=== PATIENT | male | born 1940 | race Caucasian/White ===

== ENCOUNTER 2016-12-09 08:35 | Inpatient (IN) | payer OTHER ==
[2016-11-17 10:47] VITALS: BMI 31.0
--- NOTE | 2016-11-17 11:24 | PAT Medication Instructions ---
"Service Date Nov 17, 2016. Current Home Medication List Aspirin (Aspirin Chewable), 162 MG PO QPM Canagliflozin (Invokana), 1 TAB PO DAILY Cholecalciferol (Vitamin D3), 1,000 UNITS PO QAM Colchicine (Colchicine), 0.6 MG PO PRN PRN for GOUT ATTACK Losartan Potassium (Cozaar), 25 MG PO DAILY Metformin Hcl (Glucophage), 1,000 MG PO QAM Metoprolol Succ (Toprol Xl) (Toprol-Xl), 25 MG PO DAILY Nitroglycerin (Nitrostat), 0.4 MG UT PRN Nystatin/Triamcinolone (Mycogen || ), 1 DOSE TOP BID PRN for RN Pravastatin (Pravachol ), 10 MG PO DAILY Pregabalin (Lyrica), 150 MG PO BID Rivaroxaban (Xarelto), 20 MG PO QAM Medication Instructions For Your Scheduled Surgery - Sap Portal Developer and Surgeon to give instructions: Rivaroxaban (Xarelto), 20 MG PO QAM Aspirin (Aspirin Chewable), 162 MG PO QPM - Continue as directed: Nitroglycerin (Nitrostat), 0.4 MG UT PRN Colchicine (Colchicine), 0.6 MG PO PRN PRN for GOUT ATTACK - Hold the following medications 48 hours prior to surgery: Metformin Hcl (Glucophage), 1,000 MG PO QAM - Hold the following medications 24 hours prior to surgery: Nystatin/Triamcinolone (Mycogen || ), 1 DOSE TOP BID PRN for RN - Hold the following medications the morning of surgery: Canagliflozin (Invokana), 1 TAB PO DAILY Pregabalin (Lyrica), 150 MG PO BID Losartan Potassium (Cozaar), 25 MG PO DAILY Cholecalciferol (Vitamin D3), 1,000 UNITS PO QAM - Take the following medications the morning of surgery with a sip of water OTHERWISE NOTHING TO EAT OR DRINK AFTER MIDNIGHT: Metoprolol Succ (Toprol Xl) (Toprol-Xl), 25 MG PO DAILY Pravastatin (Pravachol ), 10 MG PO DAILY - Take the following medications as scheduled the night before surgery: Pregabalin (Lyrica), 150 MG PO BID If you have any questions please call us at [phone] or [phone] or [phone]"
[2016-11-17 12:19] LABS: BASO % 0.8 %; BASO ABS # 0.06 K/uL (0-0.2); COMPLETE YES; EOS % 3.2 %; HEMATOCRIT 46.5 % (42-52); IG% 0.3 %; LYMPH % 36.1 %; LYMPH ABS # 2.69 K/uL (1.2-3.4); MEAN CELL VOLUME 84.5 fL (80-100); MEAN CORPUSCULAR HEMOGLOBIN 28.2 pg (25-34); MEAN CORPUSCULAR HGB CONC 33.3 g/dl (32-36); MEAN PLATELET VOLUME 11.1 fL (7.4-10.4); MONO % 6.3 %; NEUT % 53.3 %; PLATELET COUNT 129 K/uL (130-400); WHITE BLOOD COUNT 7.46 K/uL (4.8-10.8)
--- NOTE | 2016-11-17 12:19 | DIAGNOSTIC IMAGING REPORT ---
CHEST 2 VIEWS ROUTINE CLINICAL HISTORY: Preoperative chest COMPARISON STUDY: 10/27/2015 FINDINGS: The heart is enlarged. There are postsurgical changes of a midline sternotomy. There is no overt failure. There is no lobar consolidation. There are no pleural effusions.[ IMPRESSION: Cardiomegaly. No acute findings. Electronically signed by: Hans Sanders M.D. 11/17/2016 12:18 PM Dictated Date/Time: 11/17/2016 12:17 PM
[2016-11-17 12:20] LABS: URINE APPEARANCE CLEAR (CLEAR); URINE BILIRUBIN NEG (NEG); URINE COLOR YELLOW; URINE NITRITE NEG (NEG); URINE PH 5.5 (4.5-7.5); URINE SPECIFIC GRAVITY 1.026 (1.000-1.030); UROBILINOGEN NEG (NEG); ZZUR CULT IF INDIC CLEAN CATCH NO
[2016-11-17 12:25] LABS: BUN/CREATININE RATIO 19.9 (10-20); CALCIUM 9.3 mg/dl (8.5-10.1); CREATININE 1.1 mg/dl (0.60-1.40); POTASSIUM 4.7 mmol/L (3.5-5.1)
[2016-11-17 12:30] LABS: INR 1.1 (0.9-1.1); PARTIAL THROMBOPLASTIN RATIO 1.3; PROTHROMBIN TIME (PATIENT) 11.3 SECONDS (9.0-12.0)
[2016-11-17 12:34] LABS: MANUAL MICROSCOPIC REQUIRED? NO; REVIEW REQ? NO
[2016-11-17 13:47] LABS: ESTIMATED AVERAGE GLUCOSE 128 mg/dl; HA1C FLAG Normal (Normal)
--- NOTE | 2016-12-08 20:48 | HISTORY & PHYSICAL EXAMINATION ---
DATE OF ADMISSION: 12/09/2016 ADMISSION HISTORY AND PHYSICAL CHIEF COMPLAINT: Left shoulder pain. HISTORY OF PRESENT ILLNESS: This is a 76-year-old male patient of Dr. Chatterjee'álvaro complaining of chronic left shoulder pain, longstanding, now progressively getting worse. The patient has failed conservative treatment. He has been diagnosed with end-stage osteoarthritis and insufficient rotator cuff and wishes to proceed with an elective left reverse total shoulder arthroplasty. PAST MEDICAL HISTORY: 1. Coronary artery disease status post an PR in 1999 with a 3-vessel CABG. 2. Snoring. 3. History of TIA. 4. Diabetes mellitus. 5. Kidney stones. SOCIAL HISTORY: Nonsmoker, nondrinker. PAST SURGICAL HISTORY: Right shoulder and 3-vessel coronary artery bypass surgery. FAMILY HISTORY: Noncontributory. REVIEW OF SYSTEMS: The patient complains of chronic left shoulder pain. Otherwise, denies any shortness of breath, chest pain, nausea, vomiting or any other joint complaints. MEDICATIONS: Include: 1. Vitamin D3 1000 international units 2 tablets daily. 2. Lantus 100 units per mL subQ. 3. Lyrica 150 mg b.i.d. 4. Cozaar 25 mg daily. 5. Invokana 300 mg before each meal daily. 6. Pravastatin 10 mg daily. 7. Metformin 1000 mg b.i.d. 8. Xarelto 20 mg in the evening. 9. Metoprolol 25 mg daily. 10. Nitroglycerin 0.4 mg as needed. 11. Aspirin 81 mg daily. ALLERGIES: No known drug allergies. PHYSICAL EXAMINATION: GENERAL: Well-developed, well-nourished 76-year-old male, in no acute distress. He is alert and oriented x3 and pleasant. HEENT: Normocephalic, atraumatic. Extraocular motions are intact. Pupils are equal and reactive to light. HEART: Regular rate Regular rate and rhythm, 2/6 murmur is appreciated. LUNGS: Clear. ABDOMEN: Soft, nontender, bowel sounds present. EXTREMITIES: Left shoulder reveals positive crepitation with passive range of motion. He has full range of motion with 4/5 strength with pain. NEUROLOGIC: Neurovascularly he is intact in his left upper extremity. DIAGNOSES: Left shoulder chronic pain with insufficient rotator cuff. He also has a history of coronary artery disease status post a myocardial infarction with a 3-vessel coronary artery bypass grafting. He has a history of transient ischemic attack, diabetes mellitus, and kidney stones. PLAN: The patient was advised of his diagnosis. Indications, risks, benefits, and postop course have all been reviewed. The patient wishes to proceed with a left reverse total shoulder arthroplasty. Necessary consent forms, preoperative testing and clearances will be obtained. HARMEET
[~2016-12-09] VITALS: Ht 180.3 cm; Wt 101.5 kg
[~2016-12-09 08:35] MED LIST: ACETAMINOPHEN 500 MG TAB PO SCH; ASPCH81X PO; CANA1TAB PO; CEFAZOLIN 2000 MG/60 ML D5W 60 ML IV SCH; COLC0.6T54 PO; CeleBREX 200 MG CAP PO SCH; DEXAMETHASONE SOD INJ 4 MG/ML VIAL ONE; FAMOTIDINE 20 MG TAB PO SCH; GABAPENTIN 300 MG CAP PO SCH; LACTATED RINGER'S 1000ML 1,000 ML IV SCH; LACTATED RINGER'S 1000ML IV SCH; LOSA25TA18 PO; METF-384 PO; METO25TA3 PO; METOCLOPRAMIDE HCL 10 MG TAB PO SCH; NTRGSL/4 UT; NYSTCRE11 TOP; PRAV20TA PO; PREG75CA PO; RIVA1TAB4 PO; ROPIVACAINE 0.5% 5 MG/ML 30 ML VIAL ONE; VTMD1000 PO
[2016-12-09 09:47] VITALS: BP 160/80; PULSE 68; TEMP 36.5; O2SAT 99; Ht 180.3 cm; Wt 101.5 kg
[2016-12-09] MEDS ORDERED: DEXAMETHASONE SOD INJ 4 MG/ML VIAL ONE (11:24)
[2016-12-09] MEDS ORDERED: LIDOCAINE HCL 2% 2 ML VIAL (20MG/ML) ONE (11:24)
[2016-12-09] MEDS ORDERED: GLYCOPYRROLATE INJ 0.2 MG/ML VIAL ONE (11:24)
[2016-12-09] MEDS ORDERED: ONDANSETRON INJ 2 MG/ML 2 ML VIAL ONE (11:24)
[2016-12-09] MEDS ORDERED: PROPOFOL IV EMULSION 10 MG/ML 20 ML VIAL IV ONE (11:24)
[2016-12-09] MEDS ORDERED: ROCURONIUM BROMIDE 10 MG/ML 5 ML VIAL ONE ×2 (11:24→15:56)
[2016-12-09] MEDS ORDERED: NEOSTIGMINE METHYLSULFATE 5 MG/5 ML SYR ONE (11:24)
[2016-12-09] MEDS ORDERED: FENTANYL CITRATE INJ 50 MCG/1 ML 2 ML VIAL ONE (11:25)
[2016-12-09] MEDS ORDERED: MIDAZOLAM HCL 1 MG/ML 2ML VIAL ONE (11:25)
[2016-12-09] MEDS ORDERED: FENTANYL CITRATE INJ 50 MCG/1 ML 2 ML VIAL IV PRN (13:15)
[2016-12-09] MEDS ORDERED: EpHEDrine SULFATE INJ 50 MG/ML AMP IV PRN (13:15)
[2016-12-09] MEDS ORDERED: MEPERIDINE HCL 25 MG/ML CARP IV PRN (13:15)
[2016-12-09] MEDS ORDERED: ATROPINE SULFATE 0.1 MG/ML 5ML SYR IV PRN (13:15)
[2016-12-09] MEDS ORDERED: HYDROmorphone INJ 1 MG/ML SYR IV PRN (13:15)
[2016-12-09] MEDS ORDERED: LABETALOL HCL IV 5 MG/ML 20ML IV PRN (13:15)
[2016-12-09] MEDS ORDERED: ONDANSETRON INJ 2 MG/ML 2 ML VIAL IV PRN ×2 (13:15→17:45)
--- NOTE | 2016-12-09 13:22 | History & Physical Bridge Note ---
H&P Re-Evaluation Bridge Note: I have examined the patient, reviewed the History & Physical and in the interval since the performance of the History & Physical I have noted the following changes of clinical significance: No changes noted
[2016-12-09] MEDS ORDERED: BACITRACIN 50000 UNIT VIAL ONE (13:51)
[2016-12-09] MEDS ORDERED: POTASSIUM CHLORIDE INJ 10 MEQ in SODIUM CHLORIDE 0.9% 1000ML 1,000 ML IV SCH (17:43)
[2016-12-09] MEDS ORDERED: MAGNESIUM HYDROXIDE SUSP 30 ML UDC PO PRN (17:45)
[2016-12-09] MEDS ORDERED: COLCHICINE 0.6 MG TAB PO PRN (17:45)
[2016-12-09] MEDS ORDERED: MoRPHine SULFATE 2 MG/ML CARP IV PRN (17:45)
[2016-12-09] MEDS ORDERED: NYSTATIN/TRIAMCINOLONE CR 15 GM TUBE EXT PRN (17:45)
[2016-12-09] MEDS ORDERED: NITROGLYCERIN 0.4 MG SL PER TAB CHARGE UT SCH (17:45)
[2016-12-09] MEDS ORDERED: NALOXONE HCL 0.4 MG/1 ML VIAL/CARP IV PRN (17:45)
[2016-12-09] MEDS ORDERED: BISACODYL 10 MG SUPP PR PRN (17:45)
[2016-12-09] MEDS ORDERED: ZOLPIDEM TARTRATE 5 MG TAB PO PRN (17:45)
--- NOTE | 2016-12-09 18:21 | Anesthesiology Progress Note ---
Anesthesia Post Op Note Date & Time Dec 09, 2016 at 18:21 Vital Signs Pain Intensity: 0 Vital Signs Past 12 Hours Date Time Temp Pulse Resp B/P Pulse Ox O2 Delivery O2 Flow Rate FiO2 12/09/16 18:10 65 20 128/78 95 Nasal Cannula 2 12/09/16 18:00 63 14 143/75 97 Mask 10 12/09/16 17:50 65 13 142/76 97 Mask 10 12/09/16 17:42 36.3 69 17 155/79 97 Mask 10 12/09/16 09:47 36.5 68 20 160/80 99 Room Air Notes Mental Status: alert / awake / arousable, participated in evaluation Pt Amnestic to Procedure: Yes Nausea / Vomiting: adequately controlled Pain: adequately controlled Airway Patency, RR, SpO2: stable & adequate BP & HR: stable & adequate Hydration State: stable & adequate Anesthetic Complications: no major complications apparent
--- NOTE | 2016-12-09 18:23 | DIAGNOSTIC IMAGING REPORT ---
LEFT SHOULDER MIN 2 VIEWS ROUTINE CLINICAL HISTORY: Post shoulder surgery postoperative evaluation COMPARISON: None. DISCUSSION: Total left shoulder arthroplasty. Good alignment of the metallic components and underlying bone. No evidence of dislocation. There is no evidence for soft tissue swelling. IMPRESSION: Anatomic alignment status post total left shoulder arthroplasty Electronically signed by: Luiz Bourne M.D. 12/09/2016 6:20 PM Dictated Date/Time: 12/09/2016 6:20 PM
[2016-12-09 18:36] VITALS: BP 144/76; PULSE 67; TEMP 36.8; O2SAT 95
[2016-12-09 19:06] VITALS: BP 143/74; PULSE 68; TEMP 36.6; O2SAT 95
[2016-12-09 19:39] VITALS: BP 136/77; PULSE 74; TEMP 36.7; O2SAT 92
[2016-12-09] MEDS ORDERED: SODIUM CHLORIDE 0.9% 1000ML 1,000 ML IV ONE (20:00)
[2016-12-09] MEDS ORDERED: MoRPHine SULFATE 4 MG/ML 1 ML CARP\\VIAL IV PRN (20:15)
--- NOTE | 2016-12-09 20:33 | Medical Consult ---
Consultation Date of Consultation: Dec 09, 2016. Attending Physician: Carmelo Chatterjee M.D. Reason for Consultation: Postop medical management History of Present Illness Patient seen and examined after undergoing left reverse total shoulder arthroplasty today by Dr. Chatterjee. Patient reports feeling tired but otherwise feeling well. Denies any pain. Has not eaten yet- came to the floor around 1630. Has not voided yet. Last BM was yesterday evening. Has had mild rhinorrhea. He denies fever, dizziness, blurry vision, chest pain, palpitations , SOB, cough, N/V/D, dysuria, frequency, calf pain, edema, abnormal bleeding. Past Medical/Surgical History Medical Problems: (1) Atrial septal aneurysm Status: Chronic (2) Chronic anticoagulation Status: Chronic (3) DM type 2 (diabetes mellitus, type 2) Status: Chronic (4) Dyslipidemia Status: Chronic (5) Gout Status: Chronic (6) Heart disease Status: Chronic (7) History of cardioembolic stroke Status: Chronic (8) History of freqent ventricular ectopy Status: Chronic (9) HTN (hypertension) Status: Chronic (10) Ischemic cardiomyopathy Permanent Comment: prior EF 35-40% in August 2008; improved EF 50-54% on echo Status: Chronic (11) Mitral regurgitation Status: Chronic (12) 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 (13) BHUPINDER (obstructive sleep apnea) Permanent Comment: not on CPAP Status: Chronic (14) Paroxysmal atrial fibrillation Permanent Comment: postoperative Status: Chronic (15) PFO (patent foramen ovale) Status: Chronic Surgical Problems: (1) H/O lithotripsy Status: Chronic (2) History of right shoulder replacement Status: Chronic (3) History of total right knee replacement Status: Chronic (4) S/P CABG x 3 Permanent Comment: 09/2015 Status: Chronic Family History Diabetes mellitus MOTHER FH: CAD (coronary artery disease) BROTHER SON ( of [place] age 47) FH: CHF (congestive heart failure) MOTHER Social History Smoking Status: Never Smoker Alcohol Use: none Marital Status: single Housing Status: lives alone Allergies Coded Allergies: Lisinopril (Unverified Adverse Reaction, Mild, COUGHING, 12/09/16) Home Medications Active Reported Nitrostat (Nitroglycerin) 0.4 Mg Tab 0.4 Mg UT PRN PRN Toprol-Xl (Metoprolol Succinate) 25 Mg Tabcr 25 Mg PO DAILY Xarelto (Rivaroxaban) 20 Mg Tab 20 Mg PO QAM Pravachol (Pravastatin Sodium) 20 Mg Tab 10 Mg PO DAILY Cozaar (Losartan Potassium) 25 Mg Tab 25 Mg PO DAILY Vitamin D3 (Cholecalciferol) 1,000 Inter.unit Tab 2,000 Units PO QAM Lyrica (Pregabalin) 75 Mg Cap 150 Mg PO BID Invokana (Canagliflozin) 100 Mg Tab 1 Tab PO DAILY Colchicine 0.6 Mg Tab 0.6 Mg PO PRN PRN TAKE 2 TABS AT ONSET, THEN 1 TAB 1 HOUR LATER. Aspirin Chewable (Aspirin) 81 Mg Chew 81 Mg PO QAM Current Inpatient Medications Current Inpatient Medications Medications (Trade) Dose Ordered Sig/Sofia Route Start Time Stop Time Status Last Admin Dose Admin Lactated Ringer's 1,000 ml @ 60 mls/hr [id number] IV 12/09/16 06:00 12/09/16 22:39 Lactated Ringer's (Lr 1000ml) 1,000 ml @ 15 mls/hr Q24H IV 12/09/16 06:00 12/10/16 05:59 12/09/16 10:18 15 MLS/HR Aspirin (Aspirin Chew) 162 mg QPM PO 12/09/16 21:00 01/08/17 20:59 UNV Cholecalciferol (Vitamin D Tab) 1,000 inter.unit QAM PO 12/10/16 09:00 01/09/17 08:59 UNV Colchicine (Colchicine Tab) 0.6 mg PRN PRN PO 12/09/16 17:45 01/08/17 17:44 UNV Losartan Potassium (coZAAR TAB) 25 mg DAILY PO 12/10/16 09:00 01/09/17 08:59 UNV Metoprolol Succinate (Toprol Xl Tab) 25 mg DAILY PO 12/10/16 09:00 01/09/17 08:59 UNV Nitroglycerin (Nitrostat Tab) 0.4 mg PRN UT 12/09/16 17:45 01/08/17 17:44 UNV Nystatin/ Triamcinolone Acetonide (Mycogen II Crm) 1 appln BID PRN EXT 12/09/16 17:45 01/08/17 17:44 UNV Pravastatin Sodium (Pravachol Tab) 10 mg DAILY PO 12/10/16 09:00 01/09/17 08:59 UNV Pregabalin (Lyrica Cap) 150 mg BID PO 12/09/16 21:00 01/08/17 20:59 UNV Rivaroxaban (Xarelto Tab) 20 mg QAM PO 12/10/16 09:00 01/09/17 08:59 UNV Insulin Aspart (novoLOG ASPART) SLIDING SCALE G... ACHS SC 12/09/16 21:00 01/08/17 20:59 UNV Diphenhydramine HCl (Benadryl Cap) 25 mg Q8 PRN PO 12/09/16 17:45 01/08/17 17:44 UNV Zolpidem Tartrate (Ambien Tab) 5 mg HSZ PRN PO 12/09/16 17:45 01/08/17 17:44 UNV Ondansetron HCl (Zofran Inj) 4 mg Q6H PRN IV 12/09/16 17:45 01/08/17 17:44 UNV Pantoprazole Sodium 40 mg 40 mg QAM PO 12/10/16 09:00 01/09/17 08:59 UNV Potassium Chloride/Sodium Chloride (KCl Inj/Nss 1000ml) 1,005 ml @ 100 mls/hr Q10H3M IV 12/09/16 17:43 12/10/16 18:00 UNV Oxycodone HCl (Roxicodone Immediate Rel Tab) `1-2 TABS FOR PAIN `1 TAB... Q4H PRN PO 12/09/16 17:45 12/23/16 17:44 UNV Oxycodone HCl (Oxycontin Tab) 10 mg Q12 PO 12/09/16 21:00 12/23/16 20:59 UNV Acetaminophen (Tylenol Tab) 1,000 mg Q8 PO 12/09/16 22:00 01/08/17 21:59 UNV Morphine Sulfate (MoRPHine SULFATE INJ) as above Q2H PRN IV 12/09/16 17:45 12/23/16 17:44 UNV Naloxone HCl (Narcan Inj) 0.1 mg Q2M PRN IV 12/09/16 17:45 01/08/17 17:44 UNV Magnesium Hydroxide (Milk Of Magnesia Susp) 30 ml Q6H PRN PO 12/09/16 17:45 01/08/17 17:44 UNV Bisacodyl (Dulcolax Supp) 10 mg DAILY PRN DE 12/09/16 17:45 01/08/17 17:44 UNV Multivitamins 1 tab 1 tab DAILY PO 12/10/16 09:00 01/09/17 08:59 UNV Cefazolin Sodium/ Dextrose (Ancef Iv/D5 50ml) 60 ml @ 100 mls/hr Q8H IV 12/09/16 17:45 12/10/16 02:20 UNV Review of Systems Ten point ROS performed with pertinent positives and negatives noted in HPI. Physical Exam Date Time Temp Pulse Resp B/P Pulse Ox O2 Delivery O2 Flow Rate FiO2 12/09/16 18:20 36.2 68 23 135/74 94 Nasal Cannula 2 12/09/16 18:10 65 20 128/78 95 Nasal Cannula 2 12/09/16 18:00 63 14 143/75 97 Mask 10 12/09/16 17:50 65 13 142/76 97 Mask 10 12/09/16 17:42 36.3 69 17 155/79 97 Mask 10 12/09/16 09:47 36.5 68 20 160/80 99 Room Air General Appearance: WD/WN, no apparent distress, + pertinent finding (pleasant alert 76 year old male, lying in bed, no distress) Head: normocephalic, atraumatic Eyes: normal inspection, PERRL, EOMI ENT: hearing grossly normal, pharynx normal Neck: supple, trachea midline Respiratory/Chest: lungs clear, normal breath sounds, no respiratory distress Cardiovascular: regular rate, rhythm, no murmur Abdomen/GI: normal bowel sounds, non tender, soft Extremities/Musculoskelatal: no calf tenderness, no pedal edema, + pertinent finding (left shoulder dressing in place. left arm in sling. left shoulder drain present with sanguinous drainage.) Neurologic/Psych: alert, normal mood/affect, oriented x 3, + pertinent finding (grossly nonfocal. left hand sensation to light touch intact. left hand speedboat driver strength 5/5) Skin: normal color, warm/dry Laboratory Results Last 24 Hours Test 12/09/16 09:42 12/09/16 17:46 Bedside Glucose 131 mg/dl 158 mg/dl Assessment & Plan S/P LEFT REVERSE TOTAL SHOULDER ARTHROPLASTY POD #[address] Chatterjee Pain control and activity per ortho Monitor daily H/H for sign of acute blood loss anemia PT/ OT HX POSTOP AFIB/ HX OF CARDIOEMBOLIC CVA Appears to be in sinus rhythm, rate controlled Continue metoprolol succinate Resume Xarelto when hemostasis achieved- ordered by ortho to resume tomorrow am CAD S/P CABG Stable; no anginal symptoms Seen by cardiology preoperatively, noted to be moderate risk Continue beta sumeet, aspirin, statin, losartan ISCHEMIC CARDIOMYOPATHY Prior EF 35-40% in 2208; improved EF 50-54% on 11/2016 echo Currently euvolemic Getting IVF's Monitor volume status HYPERTENSION BP is stable Continue losartan, metoprolol succinate DM TYPE 2 Recent A1c 6.1 Insulin sliding scale coverage BSG AC HS DYSLIPIDEMIA Continue statin THROMBOCYTOPENIA Platelet count 129 on preop labs; prior platelet count normal Monitor CBC SLEEP APNEA Not on CPAP as outpatient, states has not had mask for 2+ years Declines CPAP during hospitalization Recommended initiating CPAP as outpatient, states he would be willing DISPOSITION Per ortho Follows with Dr. Ramírez for primary care and Luiz Pina PA-C for cardiology Patient seen in collaboration with Dr. Snyder. Please see his addendum. Assessment/Plan IM ATTENDING : Patient seen and examined. Preceding documentation by Ms. Mary Jane Watson PA-C, reviewed. FINAL ASSESSMENT AND RECOMMENDATIONS as follows: 1. Rotator cuff insufficiency, L status post surgery, clinically well 2. hypertension, stable 3. coronary artery disease status post coronary artery bypass graft 4. history of embolic stroke on Xarelto 5 hx PAF 6. thrombocytopenia on recent outpatient laboratory work 7. DM2 on oral medications well-controlled as of recent outpx A1c. Agree w resumption of home ASA for secondary CAD prevention. Agree with resumption of Xarelto in AM for embolic stroke prevention Hold round the clock narcotics for sedation and confusion. Monitor for HG drop/bleeding in light of thrombocytopenia. ISS BG goal 140-180. DVT prophylaxis. SCDs, Xarelto. Thank you very much for this consultation. Dr. Reeves will follow the patient's progress.
[2016-12-09 20:36] VITALS: BP 137/79; PULSE 72; TEMP 36.7; O2SAT 94
[2016-12-09] MEDS ORDERED: ASPIRIN 81 MG CHEW PO SCH (21:00)
[2016-12-09] MEDS: OXYCODONE HCL 10 MG TABCR (OXYCONTIN) PO SCH (21:06)
[2016-12-09] MEDS: PRAVASTATIN SOD 20 MG TAB PO SCH (21:07)
[2016-12-09] MEDS: PREGABALIN 75 MG CAP PO SCH (21:11)
[2016-12-09 21:42] VITALS: BP 143/77; PULSE 76; TEMP 37; O2SAT 95
[2016-12-09] MEDS: INSULIN ASPART 100 UNITS/ML 3 ML PEN SC SCH (21:55)
[2016-12-09] MEDS: ACETAMINOPHEN 500 MG TAB PO SCH (21:56)
--- NOTE | 2016-12-09 22:00 | INTERNAL MEDICINE CONSULTATION ---
DATE OF CONSULTATION: 12/09/2016 IM ATTENDING : Patient seen and examined. Preceding documentation by Ms. Mary Jane Watson PA-C, reviewed. FINAL ASSESSMENT AND RECOMMENDATIONS as follows: 1. Rotator cuff insufficiency, L status post surgery, clinically well 2. hypertension, stable 3. coronary artery disease status post coronary artery bypass graft 4. history of embolic stroke on Xarelto 5 hx PAF 6. thrombocytopenia on recent outpatient laboratory work 7. DM2 on oral medications well-controlled as of recent outpx A1c. Agree w resumption of home ASA for secondary CAD prevention. Agree with resumption of Xarelto in AM for embolic stroke prevention Hold round the clock narcotics for sedation and confusion. Monitor for HG drop/bleeding in light of thrombocytopenia. ISS BG goal 140-180. DVT prophylaxis. SCDs, Xarelto. Thank you very much for this consultation. Dr. Reeves will follow the patient's progress. GANESHD
[2016-12-10] VITALS (7 sets, daily range): BP systolic 109–149; BP diastolic 64–82; PULSE 62–91; TEMP 36.7–37; O2SAT 93–96
[2016-12-10] MEDS: CEFAZOLIN IV 2,000 MG in DEXTROSE 5% 50ML 50 ML IV SCH ×2 (00:02→07:32)
--- NOTE | 2016-12-10 02:30 | OPERATIVE REPORT ---
DATE OF OPERATION: 12/09/2016 ADDENDUM During the procedure, we encountered a very large calcifications and loose bodies. There was a very large calcification posterior to the glenoid. This had to be removed piecemeal with a rongeur including a pituitary rongeur and a Corry. they were attached to some of the posterior synovium. There was also a large flake-like humeral head articular fragment that looked like a large piece of osteochondral fragment that flaked off the humeral head. There were also several large fragmented pieces in the subacromial space scarred to the undersurface of the acromion. These pieces were 3.5 cm x 2 cm wide fragments that all removed as part of the procedure. I attest to the content of the Intraoperative Record and any orders documented therein. Any exceptions are noted below. HARMEET
[2016-12-10] MEDS: ACETAMINOPHEN 500 MG TAB PO SCH ×3 (05:37→21:38)
[2016-12-10 06:14] LABS: HEMATOCRIT 40.5 % (42-52); MEAN CORPUSCULAR HEMOGLOBIN 27.8 pg (25-34); MEAN CORPUSCULAR HGB CONC 33.1 g/dl (32-36); MEAN PLATELET VOLUME 10.7 fL (7.4-10.4); PLATELET COUNT 113 K/uL (130-400); RED BLOOD COUNT 4.82 M/uL (4.7-6.1); WHITE BLOOD COUNT 11.42 K/uL (4.8-10.8)
[2016-12-10 06:58] LABS: CREATININE 1.1 mg/dl (0.60-1.40); POTASSIUM 4.2 mmol/L (3.5-5.1)
--- NOTE | 2016-12-10 07:05 | OPERATIVE REPORT ---
DATE OF OPERATION: 12/09/2016 INDICATION FOR PROCEDURE: The patient is a 76-year-old male who presents with chronic rotator cuff arthropathy in his left shoulder. He had had previous reverse replacement in his right shoulder years ago, doing well with that procedure and wanted to proceed with the similar procedure on his left shoulder at this time. His radiographs demonstrate he is [id number] with acetabularization of the acromial humeral articulation. He has large osteophytes, some loose bodies, and grade 4 DJD glenohumeral joint. It is more of a posterior-superior wear pattern. PREOPERATIVE DIAGNOSIS: Left shoulder chronic rotator cuff arthropathy, end-stage glenohumeral degenerative joint disease. POSTOPERATIVE DIAGNOSIS: Same including biceps tendinopathy and large loose bodies and calcifications. PROCEDURES: Left shoulder reversed total shoulder arthroplasty and biceps tenodesis and removal of loose bodies. SURGEON: Dr. Chatterjee. BINDER STRIPPER MACHINE: Luiz Aparicio PA-C ANESTHESIA: Regional block and general. OPERATIVE PROCEDURE: The patient was taken to the operating room and anesthetized under regional block and general anesthetic. He was positioned on a 40 degree beach chair position on a [facility] shoulder table. A towel roll was placed in the medial border of the left scapula. His left shoulder was translated to left side of the bed, so we could extend and rotate the shoulder off the bed as necessary. His head was placed on a foam headrest and has had protective eyewear placed. He had TEDs and SCDs placed and a Nichols catheter placed. His left shoulder exam demonstrated he had passive forward elevation about 150 degrees, abduction to 100 and external rotation was to 60. He had [id number] crepitation. His left shoulder was sterilely prepped and draped with ChloraPrep. An anterior deltopectoral approach was performed. A longitudinal incision was made. Skin was incised sharply. Subcutaneous flaps were elevated. The dissection was taken down to the cephalic vein, which was identified and dissected out and retracted laterally with the deltoid. The pectoralis was retracted medially. The upper centimeter of the pectoralis was released for inferior exposure. The biceps tendon sheath had significant tenosynovitis coming from the joint extending down the biceps and this biceps tendon was tenodesed to the pectoralis tendon using #2 FiberWire qxokic-da-cucby sutures. Then, the biceps was divided proximal to the tenodesis. The patient had a very large thickened bursa overlying the rotator cuff including subscapularis, teres minor, and superior humeral head which had no rotator cuff attachment to it. This large thickened bursa was all resected. The circumflex vessels were identified, tied off with silk ties and divided laterally. At this time, the subscapularis was taken down via the bicipital groove. Incision was taken down through the transverse ligament and the tissue over the biceps sheath and this identified that the patient had a thin tendinopathic subscapularis tendon with chronic tear which was a partial tear with the biceps dislocated anteriorly under the partial tear of subscapularis and the fibers were detached to the lesser tuberosity which had a lot of osteophytes over it. I placed a traction suture into the end of the subscapularis tendon tissue and then did a subperiosteal dissection off the neck of the humerus staying on bone. The bone spurs in the bicipital groove were resected with a rongeur. The muscle fibers of the subscapularis were split at the level of the circumflex vessels leaving a cuff of fibers for protection of the axillary nerve inferiorly. I used a Kitner elevator to reflect these fibers off the capsule and placed a blunt Ramila retractor after we identified the axillary nerve with a tug test and then the capsule was divided down to the glenoid under direct visualization with Tolbert scissors, released off the anterior glenoid and any rotator interval tissue that remained was released so we had a 360 degree release of the subscapularis. The humeral head had advanced degenerative arthritic changes. There were some grade 3 and grade 4 changes on the humeral head. There were inferior art osteophytes and a large osteophyte on the inferior neck of the humerus. The osteophytes removed with an artist chisel and a rongeur. At this time the humeral head was retracted posterior to the glenoid with a Fukuda retractor. The posterior superior articular cartilage was down to grade 4 bone on the glenoid. Remainder of the glenoid labrum was resected circumferentially and the biceps was released off the superior attachment to the superior glenoid. The remainder of the biceps tendon tissue which was widened, thickened and tendinopathic was all resected. I did an anterior-inferior and posterior-inferior capsular release with electrocautery on bone, axillary nerve retracted inferiorly and a Magaña elevator used to help free up the capsule as well. After releases were completed, I went ahead and we dislocated the humerus with extension and external rotation. Then I used the Tornier Aequalis reversed II total shoulder arthroplasty system with cemented stem on the humeral side and uncemented baseplate and glenosphere on the glenoid side to match his components in his opposite shoulder. The humeral head was exposed with retractors. The humeral head cutting guide was placed into the humeral head and down into the shaft. We placed it at 20 degrees retroversion. I then made the oscillating cut above the level of the teres minor attachment which was his posterior cuff attachment that remained only. The humeral head cut was made. Then the humerus was retracted behind the glenoid. When we were extending and externally rotating and placing the posterior glenoid retractors, the posterior rim of the metaphysial cut did fracture in a crescent type fracture that matched the portion of the head that was behind the glenoid. This was inspected carefully and was just metaphysial and did not extend into the shaft. We were going to cement the stem and it would not affect the stability of the stem, but did have the attachment of the teres minor. The periosteum was not fully stripped and it did not separate completely, so we did place a #5 FiberWire suture through the bone fragment to control the fragment and teres minor so we could repair this at the end of the procedure. The retractor was then placed and then the articular surface of the glenoid was prepared first by using a curette to remove the remaining cartilage to get the appropriate version of the glenoid and then using the central drill hole, placed into the glenoid, the lower aspect of the glenoid so the baseplate would sit at the inferior aspect of the glenoid bone. This was placed centrally in the glenoid bone. Then we placed a 10 degree inferior tilt on it. I then went ahead with the reamer for a 29 mm baseplate and then irrigated this and impacted in the 29 mm baseplate. We used a 4.5 x 26 mm and 18 mm nonlocking screws for compression anterior and posterior and 23 locking screws inferior and superior and there was excellent fixation of the baseplate. I used the fan reamer for the 36 glenosphere. All excess bone was removed. The 36 mm glenosphere was impacted into position and the screw was tightened tightly and the fixation was solid. Attention was taken to the humeral preparation. The cheese grater reamer was used in the metaphysial region, followed by the conical reamer, followed by broaches for the canal, and the canal merchandise associate to a size 9, which was appropriate fit and matched his opposite side. Then put the [address] and 12 lateral humeral insert trial gave the best stability. There was no shuck and good stability. So this trial was removed. I did place a cement restrictor at the appropriate depth into the canal. The canal was irrigated copiously with antibiotic solution and bacitracin, dried with epinephrine soaked tampon and then we placed 2 drill holes into the lesser tuberosity through the bicipital groove around the lesser tuberosity for repair of the subscapularis. Two #5 FiberWire sutures were placed. Then these spinal stem which was the 100 mm length humeral cobalt chromium Aequalis reversed stem which was assembled to the 36 body was cemented in position. This was cemented with Palacos G cement. Prior to cementing that we did use that #5 FiberWire suture that was passed through the bone fragment and placed it as a cerclage wire around the proximal metaphysis and tied that down with a surgeon's knot and held it in place until the cement cured, and we made sure all excess cement was cleared and there was no cement leakage. When the humeral cement was solid, we went ahead and placed another loop of the suture around to secure the posterior wall fragment which was secured with rotation and the teres minor attachment was secured as well. Then after that was tied down, we went ahead and did a trial reduction, again a 12 mm lateral humeral insert trial was appropriate and then there was no shuck and good stability through full range of motion. We went ahead and put it in the final lateralized humeral insert, which was the 36 mm lateralized +12 insert and that was impacted in position and reduced, verified stability and then I went ahead and repaired the subscapularis with #5 FiberWire sutures that were previously placed in a Miguel Angel-Andrews suture technique as well as soft tissue lateral row repair to the tissue with sqtayz-uo-[id number] #2 FiberWire sutures with excellent closure and the subscap repair was secured through without any tension on the repair at about 45 degrees of external rotation. The repair was stable to 90 degrees of flexion, 90 degrees of forward elevation, 90 degrees of abduction. There was no shuck noted. The wound was copiously irrigated with antibiotic solution with bacitracin. Then, the pectoralis was repaired with [id number]-[id number] #2 FiberWire suture reinforcing the biceps tenodesis passing the sutures through the biceps tendon. After that was completed, 2 Hemovac drains were placed and then the deltopectoral interval was closed with vetnbz-pj-yxwoy #1 Vicryl sutures. Subcutaneous tissues closed with interrupted 2-0 Vicryl, skin closed with semaj, sterile dressings were applied and the patient tolerated the procedure well. The patient had about 100 mL of blood loss. Luiz Aparicio PA-C, was my university administrative assistant. He functioned as university administrative assistant for the entire procedure. He assisted in patient positioning, prepping, draping, arm positioning, instrument management, soft tissue management, soft tissue retraction, suture management during the replacement procedure and he did perform the final subcutaneous skin closure and will participate in the postoperative care of the patient. I attest to the content of the Intraoperative Record and any orders documented therein. Any exceptio ns are noted below.
[2016-12-10] MEDS: INSULIN ASPART 100 UNITS/ML 3 ML PEN SC SCH ×4 (08:00→21:00)
[2016-12-10] MEDS ORDERED: PNEUMOCOCCAL POLYSACCHARIDES 25 MCG/0.5 ML VIAL/SYR IM. ONE (08:00)
[2016-12-10] MEDS ORDERED: PNEUMOCOCCAL ADMINISTRATION CHARGE ONE (08:00)
--- NOTE | 2016-12-10 08:04 | Anesthesiology Progress Note ---
Anesthesia Post Op Note Date & Time Dec 10, 2016 at 08:03 Vital Signs Pain Intensity: 0.0 Vital Signs Past 12 Hours Date Time Temp Pulse Resp B/P Pulse Ox O2 Delivery O2 Flow Rate FiO2 12/10/16 07:25 94 Room Air 12/10/16 07:08 36.8 75 16 143/81 96 Room Air 12/10/16 03:40 36.8 74 16 125/73 94 Nasal Cannula 2.0 12/10/16 00:05 36.7 72 18 148/65 93 Nasal Cannula 2.0 12/09/16 23:50 Nasal Cannula 2.0 12/09/16 21:42 37.0 76 18 143/77 95 Nasal Cannula 2.0 12/09/16 20:36 36.7 72 18 137/79 94 Nasal Cannula 2.0 Notes Mental Status: alert / awake / arousable, participated in evaluation Pt Amnestic to Procedure: Yes Nausea / Vomiting: adequately controlled Pain: adequately controlled Airway Patency, RR, SpO2: stable & adequate BP & HR: stable & adequate Hydration State: stable & adequate Neuraxial Anesthesia: sensory block resolved Anesthetic Complications: no major complications apparent
--- NOTE | 2016-12-10 08:28 | Orthopedic Progress Note ---
Orthopedic Progress Note Date of Service Dec 10, 2016. Subjective Post OP Day: 1 Reports: feeling well, pain controlled w PO medications, Denies: SOB, calf pain , chest pain, complaints, light headedness, nausea / vomiting Objective N/V intact, capillary refill less than 2 sec., dressing C/D/I, A&O x3 fingers mobile, sling in tact. Date Time Temp Pulse Resp B/P Pulse Ox O2 Delivery O2 Flow Rate FiO2 12/10/16 07:25 Room Air 12/10/16 07:25 94 Room Air 12/10/16 07:08 36.8 75 16 143/81 96 Room Air 12/10/16 03:40 36.8 74 16 125/73 94 Nasal Cannula 2.0 12/10/16 00:05 36.7 72 18 148/65 93 Nasal Cannula 2.0 12/09/16 23:50 Nasal Cannula 2.0 12/09/16 21:42 37.0 76 18 143/77 95 Nasal Cannula 2.0 12/09/16 20:36 36.7 72 18 137/79 94 Nasal Cannula 2.0 12/09/16 19:39 36.7 74 16 136/77 92 Nasal Cannula 2.0 12/09/16 19:06 36.6 68 17 143/74 95 Nasal Cannula 2.0 12/09/16 18:36 95 Nasal Cannula 2.0 12/09/16 18:36 95 Nasal Cannula 2.0 12/09/16 18:36 36.8 67 18 144/76 95 Nasal Cannula 2.0 12/09/16 18:20 36.2 68 23 135/74 94 Nasal Cannula 2 12/09/16 18:10 65 20 128/78 95 Nasal Cannula 2 12/09/16 18:00 63 14 143/75 97 Mask 10 12/09/16 17:50 65 13 142/76 97 Mask 10 12/09/16 17:42 36.3 69 17 155/79 97 Mask 10 12/09/16 09:47 36.5 68 20 160/80 99 Room Air Laboratory Results 24 Hours: Test 12/10/16 06:00 Hematocrit 40.5 % Hemoglobin 13.4 g/dL Assessment & Plan Assessment: POD #1, Left Reversed TSA, biceps tenodesis Plan: Limited PT/ OT as ordered DVT proph- Lovenox, ASA D/C planning- Home Appreciate medicine input. Inhouse Planning Pain Management: Oxycontin, Morphine, PO Tylenol, Oxy IR DVT Prophylaxis: ASAKellynox Discharge Planning Discharge Planning: home Pain Management: Oxycontin, PO Tylenol, Oxy IR DVT Prophylaxis: ASA, Lovenox
[2016-12-10] MEDS: MULTIVITAMIN TAB PO SCH (08:34)
[2016-12-10] MEDS: OXYCODONE HCL 10 MG TABCR (OXYCONTIN) PO SCH ×2 (08:34→21:38)
[2016-12-10] MEDS: PREGABALIN 75 MG CAP PO SCH ×2 (08:34→21:39)
[2016-12-10] MEDS: CHOLECALCIFEROL 1000 INTER.UNIT TAB PO SCH (08:35)
[2016-12-10] MEDS: PANTOprazole SOD 40 MG TAB PO SCH (08:35)
[2016-12-10] MEDS: LOSARTAN POTASSIUM 25 MG TAB PO SCH (08:35)
[2016-12-10] MEDS: METOPROLOL SUCC 25MG EXT REL TAB PO SCH (08:35)
[2016-12-10] MEDS: ASPIRIN 81 MG ECTAB PO SCH (08:35)
--- NOTE | 2016-12-10 08:35 | Discharge Instructions ---
Discharge Instructions Date of Service Dec 10, 2016. Admission Reason for Admission: Left Shoulder Rotator Cuff Arthropathy Discharge Discharge Diagnosis / Problem: Left reversed TSA, biceps tenodesis. Discharge Goals Goal(s): Improve function Activity Recommendations Activity Limitations: as noted below . Instructions / Follow-Up Instructions / Follow-Up ACTIVITY RECOMMENDATIONS: SELF CARE INSTRUCTIONS AFTER TOTAL SHOULDER ARTHROPLASTY REVERSE A. You may do daily exercises as taught in physical therapy while in hospital. No lifting with the operative arm. B. You are to wear your sling/immobilizer at all times EXCEPT when performing your daily exercises and for hygiene purposes. C. You may perform dry, daily dressing changes. Please keep your incision covered. You may shower 48 hours after surgery. Do not apply soap or any ointment/ lotions directly over incision. Do not soak incision in bath tub/swimming pool. D. You may use ice as needed to operative shoulder. SPECIAL CARE INSTRUCTIONS: VERY IMPORTANT TO READ AND REVIEW A. There are a few signs you need to watch for after you are home. Call [facility] at [phone] if you experience any of the followin. Increased severe shoulder pain. Some pain is expected especially when you exercise. 2. Increased swelling in you shoulder or arm; pain or swelling in either upper extremity. 3. Any fluid drainage from the incision. 4. Shortness of breath or chest pain. B. Please call [facility] at [phone] if you have any questions or concerns about your operation or recovery. C. Call your physician if: 1. Temperature is greater than 101 degrees (F). 2. Pain is not relieved by prescribed pain medications. 3. Increase drainage or redness from incision. 4. Unanswered questions or concerns. FOLLOW UP VISIT: Please call [facility] at [phone] to schedule a follow up appointment with Dr. Chatterjee or his PA in 12-14 days from your surgery date. Current Hospital Diet Patient's current hospital diet: Diabetes Type 2 Diet Discharge Diet Recommended Diet: Diabetes Type 2 Diet Procedures Procedures Performed: Left Reverse Total Shoulder Arthroplasty, Cemented and Bicep tendoensis Pending Studies Studies pending at discharge: no Laboratory Results Hemoglobin A1c Test 11/17/16 11:26 Range/Units Estimated Average Glucose 128 mg/dl Hemoglobin A1c 6.1 H 4.5-5.6 % Medical Emergencies . Who to Call and When: Medical Emergencies: If at any time you feel your situation is an emergency, please call 911 immediately. . Non-Emergent Contact Non-Emergency issues call your: Primary Care Provider . "Provider Documentation" section prepared by Luiz Aparicio. . VTE Core Measure Inpt VTE Proph given/why not?: Enoxaparin (Lovenox)SQ, Other Anticoagulation ( asa), SCD's [place] Drug Monitoring Program Search Results: patient reviewed within database, no issues identified
--- NOTE | 2016-12-10 14:54 | Progress Note ---
Internal Med Progress Note Date of Service: Dec 10, 2016. Provider Documentation: SUBJECTIVE: The patient was seen and examined Minimal pain in left shoulder No other symptoms OBJECTIVE: Vital Signs-as noted below Exam: General-no distress at rest Eyes-normal ENT-normal Neck-supple Lungs-Clear to ausucltate bilaterally Heart-Regular,no murmur appreciated Abdomen-Soft,no distension Bowel sound present Extremities-No edema Neuro-AAOx3 Lab data as noted below. ASSESSMENT & PLAN: Left Rotator cuff insufficiency Status post surgery, clinically well Management as per Ortho Hypertension, stable Continue current medications Coronary artery disease status post coronary artery bypass graft No acute issue History of embolic stroke,PAF on Xarelto DM2 on oral medications well-controlled as of recent outpx A1c. DVT PROPHYLAXIS As Per Ortho DISPOSITION As per primary Medically stable Vital Signs: Date Time Temp Pulse Resp B/P Pulse Ox O2 Delivery O2 Flow Rate FiO2 12/10/16 08:35 91 149/82 12/10/16 07:25 Room Air 12/10/16 07:25 94 Room Air 12/10/16 07:08 36.8 75 16 143/81 96 Room Air 12/10/16 03:40 36.8 74 16 125/73 94 Nasal Cannula 2.0 12/10/16 00:05 36.7 72 18 148/65 93 Nasal Cannula 2.0 12/09/16 23:50 Nasal Cannula 2.0 12/09/16 21:42 37.0 76 18 143/77 95 Nasal Cannula 2.0 12/09/16 20:36 36.7 72 18 137/79 94 Nasal Cannula 2.0 12/09/16 19:39 36.7 74 16 136/77 92 Nasal Cannula 2.0 12/09/16 19:06 36.6 68 17 143/74 95 Nasal Cannula 2.0 12/09/16 18:36 95 Nasal Cannula 2.0 12/09/16 18:36 95 Nasal Cannula 2.0 12/09/16 18:36 36.8 67 18 144/76 95 Nasal Cannula 2.0 12/09/16 18:20 36.2 68 23 135/74 94 Nasal Cannula 2 12/09/16 18:10 65 20 128/78 95 Nasal Cannula 2 12/09/16 18:00 63 14 143/75 97 Mask 10 12/09/16 17:50 65 13 142/76 97 Mask 10 12/09/16 17:42 36.3 69 17 155/79 97 Mask 10 Lab Results: Results Past 24 Hours Test 12/09/16 17:46 12/09/16 21:55 12/10/16 06:00 12/10/16 08:13 Range/Units Bedside Glucose 158 176 164 70-99 mg/dl White Blood Count 11.42 4.8-10.8 K/uL Red Blood Count 4.82 4.7-6.1 M/uL Hemoglobin 13.4 14.0-18.0 g/dL Hematocrit 40.5 42-52 % Mean Corpuscular Volume 84.0 80-100 fL Mean Corpuscular Hemoglobin 27.8 25-34 pg Mean Corpuscular Hemoglobin Concent 33.1 32-36 g/dl RDW Standard Deviation 47.9 36.4-46.3 fL RDW Coefficient of Variation 15.5 11.5-14.5 % Platelet Count 113 130-400 K/uL Mean Platelet Volume 10.7 7.4-10.4 fL Sodium Level 141 136-145 mmol/L Potassium Level 4.2 3.5-5.1 mmol/L Chloride Level 107 98-107 mmol/L Carbon Dioxide Level 25 21-32 mmol/L Anion Gap 9.0 3-11 mmol/L Blood Urea Nitrogen 24 7-18 mg/dl Creatinine 1.10 0.60-1.40 mg/dl Est Creatinine Clear Calc Drug Dose 71.5 ml/min Estimated GFR () 76.2 Estimated GFR (Non- 65.8 BUN/Creatinine Ratio 22.0 10-20 Random Glucose 195 70-99 mg/dl Calcium Level 8.0 8.5-10.1 mg/dl Test 12/10/16 11:47 Range/Units Bedside Glucose 160 70-99 mg/dl
[2016-12-10] MEDS ORDERED: RIVAROXABAN 10 MG TAB PO SCH (17:45)
[2016-12-10] MEDS: OXYCODONE HCL IR 5 MG TAB (IMMEDIATE RELEASE) PO PRN (18:52)
[2016-12-10] MEDS: PRAVASTATIN SOD 20 MG TAB PO SCH (21:37)
[2016-12-11] MEDS: OXYCODONE HCL IR 5 MG TAB (IMMEDIATE RELEASE) PO PRN (00:35)
[2016-12-11 06:21] LABS: HEMATOCRIT 38.5 % (42-52); MEAN CELL VOLUME 83.9 fL (80-100); MEAN CORPUSCULAR HEMOGLOBIN 27.5 pg (25-34); MEAN CORPUSCULAR HGB CONC 32.7 g/dl (32-36); RED BLOOD COUNT 4.59 M/uL (4.7-6.1); WHITE BLOOD COUNT 10.27 K/uL (4.8-10.8)
[2016-12-11] MEDS: ACETAMINOPHEN 500 MG TAB PO SCH (06:25)
[2016-12-11 07:06] LABS: BUN/CREATININE RATIO 24.1 (10-20); POTASSIUM 4.2 mmol/L (3.5-5.1)
[2016-12-11 07:13] VITALS: BP 149/78; PULSE 75; TEMP 37.1; O2SAT 92
--- NOTE | 2016-12-11 07:21 | Orthopedic Progress Note ---
Orthopedic Progress Note Date of Service Dec 11, 2016. Subjective Post OP Day: 2 Reports: feeling well, pain controlled w PO medications, Denies: SOB, calf pain , chest pain, complaints, light headedness, nausea / vomiting Objective N/V intact, capillary refill less than 2 sec., incision C/D/I, A&O x3 Fingers mobile, sling in tact. Date Time Temp Pulse Resp B/P Pulse Ox O2 Delivery O2 Flow Rate FiO2 12/11/16 07:13 37.1 75 18 149/78 92 Room Air 12/11/16 00:30 Room Air 12/10/16 23:19 37.0 62 17 127/65 94 Room Air 12/10/16 17:00 Room Air 12/10/16 15:23 37.0 65 18 109/64 93 Room Air 12/10/16 08:35 91 149/82 12/10/16 07:25 Room Air 12/10/16 07:25 94 Room Air Laboratory Results 24 Hours: Test 12/11/16 06:12 Hematocrit 38.5 % Hemoglobin 12.6 g/dL Assessment & Plan Assessment: POD #2, Left Reversed TSA, biceps tenodesis Plan: Limited PT/ OT as ordered DVT proph- Lovenox, ASA D/C planning- Home today. Appreciate medicine input. Inhouse Planning Pain Management: Oxycontin, Morphine, PO Tylenol, Oxy IR DVT Prophylaxis: ASA, Lovenox Discharge Planning Discharge Planning: home Pain Management: Oxycontin, PO Tylenol, Oxy IR DVT Prophylaxis: ASA, Lovenox
[2016-12-11 07:23] LABS: MEAN PLATELET VOLUME 10.1 fL (7.4-10.4); PLATELET COUNT 96 K/uL (130-400)
[2016-12-11] MEDS ORDERED: RXC5 PO (07:23)
[2016-12-11] MEDS ORDERED: OXYSR10 PO (07:23)
[2016-12-11 07:26] LABS: PLT ESTIMATE DECREASED
[2016-12-11] MEDS: INSULIN ASPART 100 UNITS/ML 3 ML PEN SC SCH ×2 (08:00→12:00)
[2016-12-11] MEDS: OXYCODONE HCL 10 MG TABCR (OXYCONTIN) PO SCH (09:27)
[2016-12-11] MEDS: PREGABALIN 75 MG CAP PO SCH (09:27)
[2016-12-11] MEDS: CHOLECALCIFEROL 1000 INTER.UNIT TAB PO SCH (09:27)
[2016-12-11] MEDS: MULTIVITAMIN TAB PO SCH (09:28)
[2016-12-11] MEDS: PANTOprazole SOD 40 MG TAB PO SCH (09:28)
[2016-12-11] MEDS: ASPIRIN 81 MG ECTAB PO SCH (09:28)
[2016-12-11] MEDS: METOPROLOL SUCC 25MG EXT REL TAB PO SCH (09:28)
[2016-12-11] MEDS: LOSARTAN POTASSIUM 25 MG TAB PO SCH (09:29)
[2016-12-11 11:13] VITALS: BP 149/78; PULSE 75; TEMP 37.1; O2SAT 92
--- NOTE | 2016-12-19 08:14 | [facility] Operative Report ---
Operative Report Operative Date Dec 19, 2016. Pre-Operative Diagnosis End-stage osteoarthritis with insufficient rotator cuff left shoulder. Post-Operative Diagnosis same Procedure(s) Performed left reversed total shoulder replacement,biceps tenodesis removal loose bodies Surgeon Dr. Chatterjee Nonprofit Fundraiser Surgeon(s) Luiz Aparicio PA-C Estimated Blood Loss 100ml Findings as above Specimens A. Left humeral head Drains 2 hemovac Anesthesia general and regional Complication(s) None Disposition Recovery Room / PACU Indications end stage djd rotator cuff arthropathy I attest to the content of the Intraoperative Record and any orders documented therein. Any exceptions are noted below.
--- NOTE | 2016-12-26 20:46 | DISCHARGE SUMMARY ---
HISTORY OF PRESENT ILLNESS: This is a 76-year-old male patient of Dr. Chatterjee'álvaro complaining of chronic left shoulder pain, longstanding, now progressively getting worse. The patient has failed conservative treatment and has been diagnosed with end-stage osteoarthritis and insufficient rotator cuff. The patient wished to proceed with an elective left reverse total shoulder arthroplasty. PAST MEDICAL HISTORY: Coronary artery disease status post an [place] in 1999 with 3-vessel CABG, snoring, history of TIA, diabetes mellitus and kidney stones. POSTOPERATIVE COURSE: The patient underwent a left reverse total shoulder arthroplasty, biceps tenodesis and removal of loose bodies on 12/09/2016. Postoperatively, he was followed closely with medical consultation, DVT prophylaxis in the form of Xarelto and aspirin, physical therapy and pain control. The patient did well and was stable postoperative day 2 when he was discharged home. PHYSICAL EXAMINATION: Left shoulder incision was clean, dry and intact. Loreta were intact. Skin edges were approximated well. There was no redness or drainage. Neurologically and neurovascularly he was intact in his left upper extremity. DIAGNOSES: Status post left reverse total shoulder arthroplasty, biceps tenodesis and removal of loose bodies. He also has a history of coronary artery disease, snoring, transient ischemic attack, diabetes mellitus and kidney stones. PLAN: The patient was discharged home with outpatient physical therapy. He will continue his preadmission medications including Xarelto and aspirin. Follow up with us as scheduled.
== END 2016-12-11 13:21 | disposition home or self-care (01) | DRG 483 ==
LOC: ENRESERVDT → ENRESERV → ENRESERVTM → C.ACU 08:35 → C.3E 13:10
PROVIDERS: ADMIT Orthopaedic Surgery Sports Medicine; ATTEND Orthopaedic Surgery Sports Medicine
PROC: 0XB30ZZ Excision of Left Shoulder Region, Open Approach (ICD-10-PCS; principal; 2016-12-09 12:40)
PROC: 0RRK00Z Replacement of Left Shoulder Joint with Reverse Ball and Socket Synthetic Substitute, Open Approach (ICD-10-PCS; principal; 2016-12-09 12:40)
DX: M19.012 Primary osteoarthritis, left shoulder (principal); Q21.1 Atrial septal defect; M75.102 Unspecified rotator cuff tear or rupture of left shoulder, not specified as traumatic; M67.814 Other specified disorders of tendon, left shoulder; M65.812 Other synovitis and tenosynovitis, left shoulder; R41.0 Disorientation, unspecified; I25.10 Atherosclerotic heart disease of native coronary artery without angina pectoris; I25.5 Ischemic cardiomyopathy; D69.6 Thrombocytopenia, unspecified; I48.0 Paroxysmal atrial fibrillation; E11.9 Type 2 diabetes mellitus without complications; I10 Essential (primary) hypertension; E78.5 Hyperlipidemia, unspecified; M10.9 Gout, unspecified; G47.33 Obstructive sleep apnea (adult) (pediatric); E66.9 Obesity, unspecified; I25.2 Old myocardial infarction; Z68.31 Body mass index [BMI] 31.0-31.9, adult; Z86.73 Personal history of transient ischemic attack (TIA), and cerebral infarction without residual deficits; Z95.1 Presence of aortocoronary bypass graft; Z96.651 Presence of right artificial knee joint; Z96.611 Presence of right artificial shoulder joint; Z79.01 Long term (current) use of anticoagulants; Z79.82 Long term (current) use of aspirin; Z79.84 Long term (current) use of oral hypoglycemic drugs; Z79.4 Long term (current) use of insulin; Z79.899 Other long term (current) drug therapy

== ENCOUNTER 2016-12-27 13:45 | Emergency (ER) | payer OTHER ==
[~2016-12-27] VITALS: Ht 177.8 cm; Wt 100.1 kg
[~2016-12-27 13:45] MED LIST changes: -ACETAMINOPHEN 500 MG TAB PO SCH; -CEFAZOLIN 2000 MG/60 ML D5W 60 ML IV SCH; -CeleBREX 200 MG CAP PO SCH; -DEXAMETHASONE SOD INJ 4 MG/ML VIAL ONE; -FAMOTIDINE 20 MG TAB PO SCH; -GABAPENTIN 300 MG CAP PO SCH; -LACTATED RINGER'S 1000ML 1,000 ML IV SCH; -LACTATED RINGER'S 1000ML IV SCH; -METF-384 PO; -METOCLOPRAMIDE HCL 10 MG TAB PO SCH; -NYSTCRE11 TOP; +OXYSR10 PO; -ROPIVACAINE 0.5% 5 MG/ML 30 ML VIAL ONE; +RXC5 PO
[2016-12-27 13:59] VITALS: TEMP 36.6
--- NOTE | 2016-12-27 15:30 | DIAGNOSTIC IMAGING REPORT ---
ULTRASOUND LEFT VENOUS DOPPLER UPR EXT UNILAT CLINICAL HISTORY: Left arm edema status post surgery COMPARISON STUDY: No previous studies for comparison. FINDINGS: The study was very limited from a technical standpoint, as the patient was unable to abduct his arm due to recent shoulder surgery. Left internal jugular vein appeared patent. The left subclavian vein appeared patent. The left axillary vein appeared patent as visualized. 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 The ulnar and radial veins appear patent. Given the limited nature of the study, a short-term follow-up is recommended. IMPRESSION: 1. Very limited study from a technical standpoint as the patient was unable to abduct his arm secondary to recent surgery 2. 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 3. Given the very limited nature of this study, a repeat short-term follow-up study is strongly recommended. Electronically signed by: Hans Sanders M.D. 12/27/2016 3:29 PM Dictated Date/Time: 12/27/2016 3:26 PM
[2016-12-27 16:13] LABS: BASO ABS # 0.07 K/uL (0-0.2); COMPLETE YES; EOS % 4.4 %; HEMATOCRIT 38.8 % (42-52); IG% 0.1 %; LYMPH % 33.8 %; LYMPH ABS # 2.46 K/uL (1.2-3.4); MEAN CELL VOLUME 85.8 fL (80-100); MEAN CORPUSCULAR HEMOGLOBIN 26.8 pg (25-34); MEAN CORPUSCULAR HGB CONC 31.2 g/dl (32-36); MEAN PLATELET VOLUME 9.4 fL (7.4-10.4); MONO % 7.7 %; PLATELET COUNT 320 K/uL (130-400); RED BLOOD COUNT 4.52 M/uL (4.7-6.1); WHITE BLOOD COUNT 7.27 K/uL (4.8-10.8)
[2016-12-27 16:56] LABS: ALB/GLOB RATIO 0.8 (0.9-2); ALKALINE PHOSPHATASE 84 U/L (45-117); ALT/SGPT 12 U/L (12-78); BLOOD UREA NITROGEN 20 mg/dl (7-18); BUN/CREATININE RATIO 20.1 (10-20); CALCIUM 8.7 mg/dl (8.5-10.1); CARBON DIOXIDE 29 mmol/L (21-32); CHLORIDE 108 mmol/L (98-107); CREATININE 0.98 mg/dl (0.60-1.40); GLUCOSE 105 mg/dl (70-99); SODIUM 143 mmol/L (136-145)
[2016-12-27 17:07] LABS: INR 1.3 (0.9-1.1); PARTIAL THROMBOPLASTIN RATIO 1.9; PROTHROMBIN TIME (PATIENT) 14.3 SECONDS (9.0-12.0)
[2016-12-27 17:36] VITALS: Ht 177.8 cm; Wt 100.1 kg
[2016-12-27 17:50] LABS: POTASSIUM 3.7 mmol/L (3.5-5.1)
--- NOTE | 2016-12-27 17:56 | EMERGENCY ROOM VISIT NOTE ---
History First contact with patient: 14:15 Chief Complaint: SWELLING TO EXTREMITY Stated Complaint: LFT ARM/HAND SWOLLEN, BLACK AND BLUE, HURTS History of Present Illness The patient is a 76 year old male who presents to the Emergency Room via private vehicle with complaints of "left arm/hand swollen, black and blue, hurts ". The patient states that he is currently on Xarelto, and had left shoulder surgery performed by Dr. Chatterjee on December 09. He states that 2 days prior, he discontinued the Xarelto. He states that approximately 7 days postoperative he developed swelling in the left arm distal to the surgical site. He then states he went to his two-week checkup, and discussed how puffy it was but he notes nothing was done at that time. He states that recently his left inner arm began to become sore and he rates the pain as a 1.45/10. He is right-handed. He denies any trauma or falls. He notes that he did resume the Xarelto 2 days ago. He has had 1 dose yesterday and 1 dose today. When asked why he did not resume the medication immediately postoperative, he notes that although he was instructed to do so, he went to visit his sister and did not have his medications and only began medication again a few days ago. Review of Systems A complete 10-point Review of Systems was discussed with the patient, with pertinent positives and negatives listed in the History of Present Illness. All remaining Review of Systems questions can be considered negative unless otherwise specified. Past Medical/Surgical History Medical Problems: (1) Atrial septal aneurysm (2) Chronic anticoagulation (3) DJD of left shoulder (4) DM type 2 (diabetes mellitus, type 2) (5) Dyslipidemia (6) Gout (7) Heart disease (8) History of cardioembolic stroke (9) History of freqent ventricular ectopy (10) HTN (hypertension) (11) Ischemic cardiomyopathy (12) Mitral regurgitation (13) Neuropathy in diabetes (14) BHUPINDER (obstructive sleep apnea) (15) Paroxysmal atrial fibrillation (16) PFO (patent foramen ovale) Surgical Problems: (1) H/O lithotripsy (2) History of inguinal hernia repair (3) History of right shoulder replacement (4) History of total right knee replacement (5) S/P CABG x 3 Family History Diabetes mellitus MOTHER FH: CAD (coronary artery disease) BROTHER SON ( of [place] age 47) FH: CHF (congestive heart failure) MOTHER Social History Smoking Status: Never Smoker Marital Status: single Housing Status: lives alone Current/Historical Medications Scheduled Aspirin (Aspirin Chewable), 81 MG PO HS Canagliflozin (Invokana), 1 TAB PO DAILY Cholecalciferol (Vitamin D3), 2,000 UNITS PO QAM Losartan Potassium (Cozaar), 25 MG PO DAILY Metoprolol Succ (Toprol Xl) (Toprol-Xl), 25 MG PO DAILY Pravastatin (Pravachol ), 10 MG PO DAILY Pregabalin (Lyrica), 150 MG PO BID Rivaroxaban (Xarelto), 20 MG PO QAM Scheduled PRN Colchicine (Colchicine), 0.6 MG PO PRN PRN for GOUT ATTACK Nitroglycerin (Nitrostat), 0.4 MG UT PRN PRN for Chest Pain Allergies Coded Allergies: Lisinopril (Unverified Adverse Reaction, Mild, COUGHING, 12/27/16) Physical Exam Vital Signs Date Time Temp Pulse Resp B/P Pulse Ox O2 Delivery O2 Flow Rate FiO2 12/27/16 18:15 59 18 140/80 98 12/27/16 17:36 Room Air 12/27/16 17:02 56 18 148/81 96 Room Air 12/27/16 13:59 36.6 56 18 127/65 98 Room Air Physical Exam VITAL SIGNS - Vital signs and nursing notes were reviewed. Patient is afebrile , normotensive, non-tachycardic and is saturating well on room air at 98%. GENERAL -76-year-old male appearing his stated age who is in no acute distress. Communicates well with provider and answers questions appropriately. SKIN - there is a large amount of bruising, and various stages of healing overlying the left upper extremity and left side of his body. Patient states that he did have quite a few bruises following the surgery. HEAD - NC/AT. EYES - . Sclera anicteric. Palpebral conjunctiva pink and moist with no injection noted. EARS - No deformities of external structures noted on gross examination bilaterally. NOSE - Midline and without cyanosis. No epistaxis or purulent drainage noted. Septum midline without deviation or septal hematoma noted. MOUTH/OROPHARYNX - Without perioral cyanosis. Buccal mucosa pink and moist and without leukoplakia. LUNGS - Chest wall symmetric without accessory muscle use, intercostals retractions, or central cyanosis. Normal vesicular breath sounds CTA B/L. No wheezes, rales, or rhonchi appreciated. CARDIAC - RRR with S1/S2. No murmur, rubs, or gallops appreciated. ABDOMEN - Abdominal contour [] without pulsations or visible masses. BS normoactive all four quadrants. No tenderness, palpable masses, hepatosplenomegaly, or ascites noted. EXTREMITIES - No clubbing or peripheral cyanosis. No pretibial edema present. There is edema, of the left upper extremity and bruising. There is limited range of motion of the left shoulder as he is postoperative. He is neurovascularly intact in left upper extremity. Medical Decision & Procedures ER Provider Diagnostic Interpretation: ULTRASOUND LEFT VENOUS DOPPLER UPR EXT UNILAT CLINICAL HISTORY: Left arm edema status post surgery COMPARISON STUDY: No previous studies for comparison. FINDINGS: The study was very limited from a technical standpoint, as the patient was unable to abduct his arm due to recent shoulder surgery. Left internal jugular vein appeared patent. The left subclavian vein appeared patent. The left axillary vein appeared patent as visualized. 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 The ulnar and radial veins appear patent. Given the limited nature of the study, a short-term follow-up is recommended. IMPRESSION: 1. Very limited study from a technical standpoint as the patient was unable to abduct his arm secondary to recent surgery 2. 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 3. Given the very limited nature of this study, a repeat short-term follow-up study is strongly recommended. Electronically signed by: Hans Sanders M.D. 12/27/2016 3:29 PM Dictated Date/Time: 12/27/2016 3:26 PM Laboratory Results 12/27/16 16:00 Red Blood Count 4.52, Mean Corpuscular Volume 85.8, Mean Corpuscular Hemoglobin 26.8, Mean Corpuscular Hemoglobin Concent 31.2, Mean Platelet Volume 9.4, Neutrophils (%) (Auto) 53.0, Lymphocytes (%) (Auto) 33.8, Monocytes (%) (Auto) 7.7, Eosinophils (%) (Auto) 4.4, Basophils (%) (Auto) 1.0, Neutrophils # (Auto) 3.85, Lymphocytes # (Auto) 2.46, Monocytes # (Auto) 0.56, Eosinophils # (Auto) 0.32, Basophils # (Auto) 0.07 12/27/16 16:00 12/27/16 16:35 Test 12/27/16 16:00 12/27/16 16:35 White Blood Count 7.27 K/uL (4.8-10.8) Red Blood Count 4.52 M/uL (4.7-6.1) Hemoglobin 12.1 g/dL (14.0-18.0) Hematocrit 38.8 % (42-52) Mean Corpuscular Volume 85.8 fL (80-100) Mean Corpuscular Hemoglobin 26.8 pg (25-34) Mean Corpuscular Hemoglobin Concent 31.2 g/dl (32-36) Platelet Count 320 K/uL (130-400) Mean Platelet Volume 9.4 fL (7.4-10.4) Neutrophils (%) (Auto) 53.0 % Lymphocytes (%) (Auto) 33.8 % Monocytes (%) (Auto) 7.7 % Eosinophils (%) (Auto) 4.4 % Basophils (%) (Auto) 1.0 % Neutrophils # (Auto) 3.85 K/uL (1.4-6.5) Lymphocytes # (Auto) 2.46 K/uL (1.2-3.4) Monocytes # (Auto) 0.56 K/uL (0.11-0.59) Eosinophils # (Auto) 0.32 K/uL (0-0.5) Basophils # (Auto) 0.07 K/uL (0-0.2) RDW Standard Deviation 52.2 fL (36.4-46.3) RDW Coefficient of Variation 16.6 % (11.5-14.5) Immature Granulocyte % (Auto) 0.1 % Immature Granulocyte # (Auto) 0.01 K/uL (0.00-0.02) Anion Gap 6.0 mmol/L (3-11) Est Creatinine Clear Calc Drug Dose 78.4 ml/min Estimated GFR () 87.7 Estimated GFR (Non- 75.6 BUN/Creatinine Ratio 20.1 (10-20) Calcium Level 8.7 mg/dl (8.5-10.1) Total Bilirubin 0.7 mg/dl (0.2-1) Alanine Aminotransferase (ALT/SGPT) 12 U/L (12-78) Alkaline Phosphatase 84 U/L (45-117) Total Protein 7.1 gm/dl (6.4-8.2) Albumin 3.2 gm/dl (3.4-5.0) Globulin 3.9 gm/dl (2.5-4.0) Albumin/Globulin Ratio 0.8 (0.9-2) Prothrombin Time 14.3 SECONDS (9.0-12.0) Prothromb Time International Ratio 1.3 (0.9-1.1) Activated Partial Thromboplast Time 48.8 SECONDS (21.0-31.0) Partial Thromboplastin Ratio 1.9 Aspartate Amino Transf (AST/SGOT) 8 U/L (15-37) Medical Decision Patient was seen and evaluated as above. After obtaining a thorough history and physical examination ultrasound was obtained of the left upper extremity. Results as above. I agree with radiologist findings. This is concerning for DVT, and although he recently started Xarelto I was concerned that he may need additional intervention. IV access was initiated and the above workup was performed. CBC reveals no leukocytosis, slight anemia with hemoglobin of 12.1 noted. He denies any rectal bleeding. Correlation studies are elevated, as to be expected on Xarelto. CMP does reveal chloride elevation, BUN elevation, AST low at 8, with no emergent abnormalities. I did discuss the case with my attending, and subsequently the hospitalist as I initially thought the patient may have experienced failure to Xarelto. I did discuss the case with the hospitalist, Dr. Wallis. She personally evaluated the patient, and after a thorough discussion together it was identified that this is not Xarelto failure , rather the patient developed a DVT while not on Xarelto, and he just recently resumed a Xarelto. It appears that the patient does not need any intervention or management at this time other than resuming his normal medications to include Xarelto. As per our radiologist's recommendation, the patient is to have a repeat ultrasound within 2 weeks. The patient at this time does feel stable for discharge, and is in agreement with our plan. I want to reiterate that at this time I do not suspect Xarelto failure, and do feel the patient is stable for discharge. I educated the patient upon worrisome symptoms which to return, had questions prior to discharge and was discharged home in good condition. In the evaluation treatment this patient following differential diagnoses were entertained: DVT, superficial thrombophlebitis, cellulitis, among others. Impression Primary Impression: Swelling of left extremity Additional Impression: Anemia Departure Information Dispostion Home / Self-Care Condition GOOD Referrals Gerson Ramírez M.D. (PCP) Patient Instructions My [facility] Additional Instructions You were seen in the emergency Department for swelling of your arm. You have been thoroughly evaluated here by multiple members of the medical staff , and it is felt that you are safe for discharge as long as you continue your Xarelto as prescribed. It is recommended that you follow up with your family doctor regarding today's visit for further evaluation and management of your arm swelling, and recheck. Our radiologist recommends that you have a repeat ultrasound of the arm as follow-up. At this time we do not believe that admission is necessary as you're already on the appropriate medication. Please return to the emergency department with any new/concerning symptoms. Problem Qualifiers
[2016-12-27 18:15] VITALS: BP 140/80; PULSE 59; O2SAT 98
--- NOTE | 2016-12-27 18:37 | Medical Consult ---
Consultation Note Date of Service December 27, 2016. Consultation Note Date of Consultation: December 27, 2016. Attending Physician: Dr Charlie MD Reason for Consultation: DVT Left upper extremity, post op recent left shoulder arthroplasty. History of Present Illness : Patient comes to ER for c/o worsening soreness in left forearm x 3 days, swelling x 3 days post left shoulder arthroplasty. Patient had a left reverse total shoulder arthroplasty on 12/09/[address] Chatterjee. He did well while in the hospital with no complications. He was discharged on 12/11/16. Patient was on xarelto for post CABG paroxysmal atrial fibrillation diagnosed in Sep 2016, hx of cardioembolic stroke. Was taken off xarelto 4 days prior to surgery and was restarted on POD # 1 per orthopedics/IM team. Was instructed to restart all his home medications including xarelto on discharge. However, patient went to his sister's place post op and did not take his xarelto till yesterday when he re started it by himself. Took a dose yesterday and today which was the first time since discharge from hospital. He developed swelling of left forearm 3 days post surgery. 3.5 days ago soreness in left forearm worsened and thus he came to ER. US upper extremity was done in ED which showed suspected thrombus in brachial vein. We have been consulted to guide rx and disposition. On my evaluation, patient c/o soreness/swelling in left forearm, but it is tolerable. Denies any fever, chills, localized weakness, nausea, vomiting, abdominal pain, diarrhea, numbness, tingling, redness, SOB, Chest pain. Vital are stable, saturating well on RA, Afebrile, BP/P-Stable. Eager to be discharged. Past Medical/Surgical History Medical Problems: (1) Atrial septal aneurysm Status: Chronic (2) Chronic anticoagulation Status: Chronic (3) DM type 2 (diabetes mellitus, type 2) Status: Chronic (4) Dyslipidemia Status: Chronic (5) Gout Status: Chronic (6) Heart disease Status: Chronic (7) History of cardioembolic stroke Status: Chronic (8) History of freqent ventricular ectopy Status: Chronic (9) HTN (hypertension) Status: Chronic (10) Ischemic cardiomyopathy Permanent Comment: prior EF 35-40% in August 2008; improved EF 50-54% on echo Status: Chronic (11) Mitral regurgitation Status: Chronic (12) 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 (13) BHUPINDER (obstructive sleep apnea) Permanent Comment: not on CPAP Status: Chronic (14) Paroxysmal atrial fibrillation Permanent Comment: postoperative Status: Chronic (15) PFO (patent foramen ovale) Status: Chronic Surgical Problems: (1) H/O lithotripsy Status: Chronic (2) History of right shoulder replacement Status: Chronic (3) History of total right knee replacement Status: Chronic (4) S/P CABG x 3 Permanent Comment: 09/2015 Status: Chronic Family History Diabetes mellitus MOTHER FH: CAD (coronary artery disease) BROTHER SON ( of [place] age 47) FH: CHF (congestive heart failure) MOTHER Social History Smoking Status: Never Smoker Alcohol Use: none Marital Status: single Housing Status: lives alone Allergies Coded Allergies: Lisinopril (Unverified Adverse Reaction, Mild, COUGHING, 12/09/16) Home Medications Active Reported Nitrostat (Nitroglycerin) 0.4 Mg Tab 0.4 Mg UT PRN PRN Toprol-Xl (Metoprolol Succinate) 25 Mg Tabcr 25 Mg PO DAILY Xarelto (Rivaroxaban) 20 Mg Tab 20 Mg PO QAM Pravachol (Pravastatin Sodium) 20 Mg Tab 10 Mg PO DAILY Cozaar (Losartan Potassium) 25 Mg Tab 25 Mg PO DAILY Vitamin D3 (Cholecalciferol) 1,000 Inter.unit Tab 2,000 Units PO QAM Lyrica (Pregabalin) 75 Mg Cap 150 Mg PO BID Invokana (Canagliflozin) 100 Mg Tab 1 Tab PO DAILY Colchicine 0.6 Mg Tab 0.6 Mg PO PRN PRN TAKE 2 TABS AT ONSET, THEN 1 TAB 1 HOUR LATER. Aspirin Chewable (Aspirin) 81 Mg Chew 81 Mg PO QAM Current Inpatient Medications Current Inpatient Medications Medications (Trade) Dose Ordered Sig/Sofia Route Start Time Stop Time Status Last Admin Dose Admin Lactated Ringer's 1,000 ml @ 60 mls/hr [id number] IV 12/09/16 06:00 12/09/16 22:39 Lactated Ringer's (Lr 1000ml) 1,000 ml @ 15 mls/hr Q24H IV 12/09/16 06:00 12/10/16 05:59 12/09/16 10:18 15 MLS/HR Aspirin (Aspirin Chew) 162 mg QPM PO 12/09/16 21:00 01/08/17 20:59 UNV Cholecalciferol (Vitamin D Tab) 1,000 inter.unit QAM PO 12/10/16 09:00 01/09/17 08:59 UNV Colchicine (Colchicine Tab) 0.6 mg PRN PRN PO 12/09/16 17:45 01/08/17 17:44 UNV Losartan Potassium (coZAAR TAB) 25 mg DAILY PO 12/10/16 09:00 01/09/17 08:59 UNV Metoprolol Succinate (Toprol Xl Tab) 25 mg DAILY PO 12/10/16 09:00 01/09/17 08:59 UNV Nitroglycerin (Nitrostat Tab) 0.4 mg PRN UT 12/09/16 17:45 01/08/17 17:44 UNV Nystatin/ Triamcinolone Acetonide (Mycogen II Crm) 1 appln BID PRN EXT 12/09/16 17:45 01/08/17 17:44 UNV Pravastatin Sodium (Pravachol Tab) 10 mg DAILY PO 12/10/16 09:00 01/09/17 08:59 UNV Pregabalin (Lyrica Cap) 150 mg BID PO 12/09/16 21:00 01/08/17 20:59 UNV Rivaroxaban (Xarelto Tab) 20 mg QAM PO 12/10/16 09:00 01/09/17 08:59 UNV Insulin Aspart (novoLOG ASPART) SLIDING SCALE G... ACHS SC 12/09/16 21:00 01/08/17 20:59 UNV Diphenhydramine HCl (Benadryl Cap) 25 mg Q8 PRN PO 12/09/16 17:45 01/08/17 17:44 UNV Zolpidem Tartrate (Ambien Tab) 5 mg HSZ PRN PO 12/09/16 17:45 01/08/17 17:44 UNV Ondansetron HCl (Zofran Inj) 4 mg Q6H PRN IV 12/09/16 17:45 01/08/17 17:44 UNV Pantoprazole Sodium 40 mg 40 mg QAM PO 12/10/16 09:00 01/09/17 08:59 UNV Potassium Chloride/Sodium Chloride (KCl Inj/Nss 1000ml) 1,005 ml @ 100 mls/hr Q10H3M IV 12/09/16 17:43 12/10/16 18:00 UNV Oxycodone HCl (Roxicodone Immediate Rel Tab) `1-2 TABS FOR PAIN `1 TAB... Q4H PRN PO 12/09/16 17:45 12/23/16 17:44 UNV Oxycodone HCl (Oxycontin Tab) 10 mg Q12 PO 12/09/16 21:00 12/23/16 20:59 UNV Acetaminophen (Tylenol Tab) 1,000 mg Q8 PO 12/09/16 22:00 01/08/17 21:59 UNV Morphine Sulfate (MoRPHine SULFATE INJ) as above Q2H PRN IV 12/09/16 17:45 12/23/16 17:44 UNV Naloxone HCl (Narcan Inj) 0.1 mg Q2M PRN IV 12/09/16 17:45 01/08/17 17:44 UNV Magnesium Hydroxide (Milk Of Magnesia Susp) 30 ml Q6H PRN PO 12/09/16 17:45 01/08/17 17:44 UNV Bisacodyl (Dulcolax Supp) 10 mg DAILY PRN IA 12/09/16 17:45 01/08/17 17:44 UNV Multivitamins 1 tab 1 tab DAILY PO 12/10/16 09:00 01/09/17 08:59 UNV Cefazolin Sodium/ Dextrose (Ancef Iv/D5 50ml) 60 ml @ 100 mls/hr Q8H IV 12/09/16 17:45 12/10/16 02:20 UNV Review of Systems As per HPI, all other systems reviewed and are negative Physical Exam Vitals: Reviewed General Appearance: WD/WN, no apparent distress, Head: normocephalic, atraumatic Eyes: normal inspection, PERRL, EOMI ENT: hearing grossly normal, pharynx normal Neck: supple, trachea midline Respiratory/Chest: lungs clear, normal breath sounds, no respiratory distress Cardiovascular: regular rate, rhythm, no murmur Abdomen/GI: normal bowel sounds, non tender, soft Extremities/Musculoskelatal: no calf tenderness, no pedal edema, + pertinent finding (left forearm swelling, mild, mild tenderness at surgical site, but no erythema. ROM + due to surgery.) Neurologic/Psych: alert, normal mood/affect, oriented x 3, + pertinent finding (grossly nonfocal. left hand sensation to light touch intact. 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 Patient's xarelto was restarted on post operative day 1 per ortho/IM team and he was instructed to restart it on discharge. However, patient went to his [facility] place, didnt have his medications with him and thus did not take it till yesterday when he finally resumed it . Took one pill yesterday and one pill today. His symptoms of left forearm swelling started on POD # 4 and soreness worsened x 3 days. Thus most likely developed DVT during the early post operative perior due to not resuming his xarelto on discharge. Thus this episode of DVT is provoked secondary to surgery and not taking xarelto. It is not failure of xarelto. Therefore, I do recommend restarting his xarelto 20 mg daily and discharge him home on it. Counseling was done about compliance- xarelto and consequences of not doing so, risk of complications including PE, recurrent DVT, stroke aristeo with his hx of A fib in past. Understands and agrees to do so. Case was discussed with ED physician and JODI. Agree with the recommendations.
[2016-12-27] MEDS ORDERED: PNEUMOCOCCAL POLYSACCHARIDES 25 MCG/0.5 ML VIAL/SYR IM. ONE (22:30)
[2016-12-27] MEDS ORDERED: PNEUMOCOCCAL ADMINISTRATION CHARGE ONE (22:30)
--- NOTE | 2016-12-28 20:11 | EMERGENCY ROOM VISIT NOTE ---
ED Visit Note First contact with patient: 14:15 I have personally seen and evaluated the patient with the PA. I agree with the diagnosis and management decisions and have been personally involved in the case. Please see Victor Manuel Hathaway PA-C's notes for further details of the history, physical and visit.
== END 2016-12-27 18:16 | disposition home or self-care (01) ==
LOC: C.EDB 13:46 → C.EDD 18:16
DX: R22.32 Localized swelling, mass and lump, left upper limb (principal); D64.9 Anemia, unspecified; E11.40 Type 2 diabetes mellitus with diabetic neuropathy, unspecified; E78.5 Hyperlipidemia, unspecified; I10 Essential (primary) hypertension; I48.91 Unspecified atrial fibrillation; I51.9 Heart disease, unspecified; I34.0 Nonrheumatic mitral (valve) insufficiency; M10.9 Gout, unspecified; G47.33 Obstructive sleep apnea (adult) (pediatric); Z86.73 Personal history of transient ischemic attack (TIA), and cerebral infarction without residual deficits; Z96.651 Presence of right artificial knee joint; Z98.890 Other specified postprocedural states; Z95.1 Presence of aortocoronary bypass graft; Z79.82 Long term (current) use of aspirin; Z79.899 Other long term (current) drug therapy; Z88.8 Allergy status to other drugs, medicaments and biological substances; Z83.3 Family history of diabetes mellitus; Z82.49 Family history of ischemic heart disease and other diseases of the circulatory system

== ENCOUNTER 2019-02-10 19:38 | Inpatient (IN) ==
[2019-02-10 20:29] LABS: Basophils # (auto) 0.04 K/uL (0-0.2); Basophils % (auto) 0.5 %; Eosinophils # (auto) 0.27 K/uL (0-0.5); Eosinophils % (auto) 3.5 %; Hematocrit (blood only) 45.3 % (42-52); Immature Granulocytes # (auto) 0.01 K/uL (0.00-0.02); Immature Granulocytes % (auto) 0.1 %; Lymphocytes # (auto) 2.83 K/uL (1.2-3.4); Lymphocytes % (auto) 37.1 %; Mean Corpuscular Hgb Conc 33.1 g/dL (32-36); Mean Corpuscular Volume 85.8 fL (80-100); Mean Platelet Volume 11.7 fL (7.4-10.4); Monocytes # (auto) 0.49 K/uL (0.11-0.59); Monocytes % (auto) 6.4 %; Neutrophils # (auto) 3.99 K/uL (1.4-6.5); Neutrophils % (auto) 52.4 %; Platelet Count 125 K/uL (130-400); RDW Coefficient of Variation 15.7 % (11.5-14.5); RDW Standard Deviation 49.5 fL (36.4-46.3); Red Blood Count 5.28 M/uL (4.7-6.1); White Blood Count 7.63 K/uL (4.8-10.8)
--- NOTE | 2019-02-10 20:34 | XRay Report ---
XR chest 1V portable CLINICAL HISTORY: Ventricular tachycardia COMPARISON STUDY: 10/27/2015 FINDINGS: The heart is enlarged. There are postsurgical changes of a midline sternotomy. There is spike dence of fawad venous hypertension. There is no lobar consolidation. There are no pleural effusions. There are bilateral shoulder arthroplasties. There are calcified mediastinal and hilar lymph nodes. IMPRESSION: Cardiomegaly and radiographic evidence of pulmonary venous hypertension. No evidence of f ocal pulmonary consolidation Electronically signed by: Hans Sanders M.D. 02/10/2019 8:32 PM
[2019-02-10 20:47] LABS: Albumin Level 3.8 gm/dl (3.4-5.0); BUN Creatinine Ratio 18.6 (10-20); Calcium 9.1 mg/dl (8.5-10.1); Creatinine Clr Calc Pharmacy 65.7 ml/min; Est GFR (African American) 70.5; Est GFR (Non-African American) 60.8; Magnesium 1.9 mg/dl (1.8-2.4); Potassium 3.5 mmol/L (3.5-5.1)
[2019-02-10 20:58] LABS: Albumin Globulin Ratio 1.1 (0.9-2); Bilirubin,Total 0.9 mg/dl (0.2-1); Globulin 3.4 gm/dl (2.5-4.0); Total Protein 7.2 gm/dl (6.4-8.2)
[2019-02-10] MEDS ORDERED: POTASSIUM CHLORIDE 10 MEQ TABCR PO STA (22:07)
[2019-02-10] MEDS ORDERED: AMIODARONE 200 MG TAB PO ONE (22:29)
--- NOTE | 2019-02-10 22:44 | Hospitalist Progress Note ---
Date of Service February 10, 2019 Subjective Attending addendum: This is a 78-year-old with a complex past medical history of coronary artery disease status post CABG, hypertension, hyperlipidemia, history of paroxysmal A. fib on Xarelto, history of cardio embolic stroke, type 2 diabetes, CKD stage III Was recently evaluated by cardiology in outpatient for episode of syncope approximately week back Patient was ordered 3 days Zio patch Zio Patch was mailed yesterday 02/09/[address] Do was notified by [id number] V. tach noted Patient was asked to come to [facility] ER emergently In the ER, , patient denies of any chest pain no shortness of breath no dyspnea on exertion Did not had any episode of dizzy spell or lightheadedness for past 1 week Monitor in ER showed frequent PVCs with bigeminy Patient will be admitted to telemetry for cardiac arrhythmia/nonsustained V. tach Case discussed with on-call cardiology Dr. Reyes Cardoza Patient started with p.o. amiodarone, Will be given 400 mg x 1 dose now Continue in a.m. amiodarone 200 mg 3 times daily TSH checked in the ER: 3.67 Continue with Xarelto, Hold beta-sumeet ACS work-up: Serial cardiac markers/resting echo ordered Lab shows potassium 3.5, ordered for Mg level-pending during time of dictation Ordered for 20 M EQ of p.o. potassium Given ventricular arrhythmia, potassium should be above 4, mg should be >2 Cardiology consulted Patient may need EP cardiology evaluation during this hospital stay, will defer to decision to [facility] cardiology CODE STATUS: Discussed with patient: Full code DVT prophylaxis: Continue on Xarelto Please refer to further documentation by Mar Gardner PA-C for discussion of other chronic issues Estella Romero MD Results & Data Vital Signs (Past 12 Hours) Vital Signs Temp Pulse Pulse Resp BP BP Pulse Ox 02/10/19 20:32 76 20 170/82 H 96 02/10/19 19:42 36.3 C L 82 18 194/99 H 98
--- NOTE | 2019-02-10 22:49 | History & Physical Report ---
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 A 3 day ZIO monitor was performed secondary to episode of syncope and also hx of dizziness every 5-6weeks which revealed 350 brief episodes of nonsustained V. t ach. The run with the fastest was 12 beats in duration with a maximum rate of 235 bpm. Longest episode was 9 beats in duration with average rate of 98 bpm. Case discussed with Cardiology Dr. 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 Last echo 12/2017 revealed EF 50-54% Hold Toprol XL per cardiology to prevent bradycardia for now given 1st degree av block continue ASA, statin and losartan for risk reduction management ACS work up as above (3) Paroxysmal atrial fibrillation: rate/rhythm controlled Toprol-XL on hold Continue Xarelto for thrombotic prophylaxis (4) HTN (hypertension): Blood pressure elevated in ED, may be secondary to anxiety of admission Continue losartan and monitor (5) DM type 2 (diabetes mellitus, type 2): A1c 6.9 on 02/03/19 Hold outpatient metformin and Invokana NovoLog sliding scale per protocol (6) Neuropathy in diabetes: Continue Lyrica Neuropathy precautions (7) DVT prophylaxis: Xarelto Disposition: Discharge to home when able Follow up: PCP Dr. Ramírez upon discharge along with appropriate cardiology follow up Patient was seen and examined in collaboration with Dr. Romero, please see addendum Starting 02/11/19 patient will be under the care of Dr. 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 A 3 day ZIO monitor was performed revealing 350 brief episodes of nonsustained V. tach. The run with the fastest was 12 beats in duration with a maximum rate of 235 bpm. Longest episode was 9 beats in duration with average rate of [address] Do made multiple attempts to contact patient and was unsuccessful. He was able to reach patient's brother who relayed message to patient. He overall feels well. "I always feel good." Approximately 9 days ago patient was standing with the sandwhich in hand when he had an episode of syncope. He recalls going down to ground and losing the sandwhich out of his hand, but did feel he lost consciousness for brief second. No sustained injury. He states approximately every 5 to 6 weeks he has intermittent dizziness that lasts approximately 30 seconds to a minute and goes away. He felt he should be evaluated given above symptoms and recent syncope. General practitioner ordered ZIO patch which revealed arrhythmia. Patient was assessed by elective physiology approx 1 year ago in November 2018 which was also found to have episodes of asymptomatic nonsustained ventricular tachycardia. Work-up at that time revealed echocardiogram with RCA territory scar with preserved LVEF. He had a nuclear stress test which was negative for inducible ischemia. Ongoing observation was recommended. He denies any recent illness, fever, chills, sweats, current lightheadedness or dizziness, chest pain, shortness of breath, orthopnea, palpitations, nausea, vomiting, diarrhea, change in bowel or urinary habits. His appetite is good. He does not notice any swelling. Allergies Allergy/AdvReac Type Severity Reaction Status Date / Time lisinopril AdvReac Mild COUGHING Unverified 02/10/19 21:19 Home Medications Home Medications Medication Instructions Recorded Confirmed Type aspirin [Aspir-81] 81 mg PO DAILY 02/10/19 02/10/19 History canagliflozin [Invokana] 300 mg PO QAM 02/10/19 02/10/19 History cholecalciferol (vitamin D3) 2,000 unit PO DAILY 02/10/19 02/10/19 History [Vitamin D3] colchicine 1.2 mg PO .GOUT ATTACK 02/10/19 02/10/19 History losartan 25 mg PO DAILY 02/10/19 02/10/19 History metformin 1,000 mg PO DAILY 02/10/19 02/10/19 History metoprolol succinate 25 mg PO DAILY 02/10/19 02/10/19 History nitroglycerin [Nitrostat] 0.4 mg SUBLINGUAL UD PRN 02/10/19 02/10/19 History nystatin 1 applic TOPICAL BID PRN 02/10/19 02/10/19 History pravastatin 10 mg PO DAILY 02/10/19 02/10/19 History pregabalin [Lyrica] 150 mg PO BID 02/10/19 02/10/19 History rivaroxaban [Xarelto] 20 mg PO DAILY 02/10/19 02/10/19 History tamsulosin [Flomax] 0.4 mg PO DAILY 02/10/19 02/10/19 History Past Med/Surg History Medical History Heart disease (Chronic) Ischemic cardiomyopathy (Chronic) "prior EF 35-40% in August 2008; improved EF 50-54% on 11/24/16 echo" Paroxysmal atrial fibrillation (Chronic) "postoperative" History of cardioembolic stroke (Chronic) Mitral regurgitation (Chronic) HTN (hypertension) (Chronic) Dyslipidemia (Chronic) DM type 2 (diabetes mellitus, type 2) (Chronic) BHUPINDER (obstructive sleep apnea) (Chronic) "not on CPAP" PFO (patent foramen ovale) (Chronic) Atrial septal aneurysm (Chronic) Gout (Chronic) 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) Chronic anticoagulation (Chronic) DJD of left shoulder (Resolved) Phlebitis/thrombophlebitis (Resolved) Surgical History History of left shoulder replacement (Chronic) 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) "2004 " History of right shoulder replacement (Chronic) "2009" H/O lithotripsy (Chronic) History of inguinal hernia repair (Chronic) "1954" Family History Brother Katt required AICD Social History Preferred Language: Uzbek Communication Ability: Effective marital status: Single current occupational status: retired Feels Safe at Home: Yes Smoking Status: Never smoker Hx Alcohol Use: No Hx Substance Use: No Review of Systems Review of Systems: As noted per HPI, 10 systems reviewed and negative unless noted above. Physical Exam Physical Exam: Gen: WD/WN, M, NAD, sitting up in bed, pleasant, conversing easily Head: Normocephalic, Atraumatic Eyes: Sclera normal, no conjunctival injection, PERRLA, EOMI ENT: Gross hearing intact, normal pharynx, mucous membranes moist Neck: supple, no adenopathy, No JVD, no bruit, Resp: Clear to auscultation b/l, no wheeze, rales, rhonchi. 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 Extremities: +1pedal edema, trace pre-tibial edema with mild venous insuff changes bilaterally Skin: warm, moist, no rash, negative turgor, cap refill < 2sec Neuro: Alert and oriented x 3, speech normal, good mood/affect, cran nerve 2-12 intact grossly : deferred Results & Data Vital Signs (Past 12 Hours) Vital Signs Temp Pulse Pulse Resp BP BP Pulse Ox 02/10/19 20:32 76 20 170/82 H 96 02/10/19 19:42 36.3 C L 82 18 194/99 H 98 Laboratory Results Short CBC 02/10/19 Range/Units 19:56 WBC 7.63 (4.8-10.8) K/uL Hgb 15.0 (14.0-18.0) g/dL Hct 45.3 (42-52) % Plt Count 125 L (130-400) K/uL BMP 02/10/19 19:56 Sodium 143 Potassium 3.5 Chloride 108 H Carbon Dioxide 28 BUN 22 H Creatinine 1.16 Glucose 142 H Calcium 9.1 Liver Function 02/10/19 Range/Units 19:56 Total Bilirubin 0.9 (0.2-1) mg/dl AST 16 (15-37) U/L ALT 20 (12-78) U/L Alkaline Phosphatase 52 (45-117) U/L Albumin 3.8 (3.4-5.0) gm/dl Diagnostic Findings CXR: IMPRESSION: Cardiomegaly and radiographic evidence of pulmonary venous hypertension. No evidence of focal pulmonary consolidation ECG Rhythm: normal sinus Findings: + 1st degree AV block, + PVC and + prolonged QT (QTC 460ms) Code Status & VTE Plan Code Status Full Code VTE Prophylaxis Plan VTE Prophylaxis will be ordered: Yes Supervising Physician Co-Signing Physician Notes Attending addendum: This is a 78-year-old with a complex past medical history of coronary artery disease status post CABG, hypertension, hyperlipidemia, history of paroxysmal A. fib on Xarelto, history of cardio embolic stroke, type 2 diabetes, CKD stage III Was recently evaluated by cardiology in outpatient for episode of syncope approximately week back Patient was ordered 3 days Zio patch Zio Patch was mailed yesterday 02/09/[address] Do was notified by [id number] V. tach noted Patient was asked to come to [facility] ER emergently In the ER, , patient denies of any chest pain no shortness of breath no dyspnea on exertion Did not had any episode of dizzy spell or lightheadedness for past 1 week Monitor in ER showed frequent PVCs with bigeminy Patient will be admitted to telemetry for cardiac arrhythmia/nonsustained V. tach Case discussed with on-call cardiology Dr. Reyes Cardoza Patient started with p.o. amiodarone, Will be given 400 mg x 1 dose now Continue in a.m. amiodarone 200 mg 3 times daily TSH checked in the ER: 3.67 Continue with Xarelto, Hold beta-sumeet ACS work-up: Serial cardiac markers/resting echo ordered Lab shows potassium 3.5, ordered for Mg level-pending during time of dictation Ordered for 20 M EQ of p.o. potassium Given ventricular arrhythmia, potassium should be above 4, mg should be >2 Cardiology consulted Patient may need EP cardiology evaluation during this hospital stay, will defer to decision to [facility] cardiology CODE STATUS: Discussed with patient: Full code DVT prophylaxis: Continue on Xarelto Please refer to further documentation by Mar Gardner PA-C for discussion of other chronic issues Estella Romero MD
[2019-02-10] MEDS ORDERED: POLYETHYLENE (MIRALAX) 17 GM PACK PO PRN (23:21)
[2019-02-10] MEDS ORDERED: ACETAMINOPHEN 325 MG TAB PO PRN (23:21)
[2019-02-10] MEDS ORDERED: GLUCOSE 40% GEL 15 GM TUBE PO PRN (23:21)
[2019-02-10] MEDS ORDERED: GLUCOSE 10 TABS/TUBE PO PRN (23:21)
[2019-02-10] MEDS ORDERED: GLUCAGON FOR INJ 1 MG VIAL SQ PRN (23:21)
[2019-02-10] MEDS ORDERED: DEXTROSE 50% 50 ML SYRINGE IV PRN (23:21)
[2019-02-10] MEDS ORDERED: CARBOHYDRATES FOR HYPOGLYCEMIA PO PRN (23:21)
[2019-02-10] MEDS ORDERED: NITROGLYCERIN SL 0.4 MG/TAB TAB SL PRN ×2 (23:21)
[2019-02-11] MEDS ORDERED: PNEUMOCOCCAL POLYSACCHARIDES 25 MCG/0.5 ML VIAL/SYR IM ONE (01:00)
[2019-02-11] MEDS ORDERED: PNEUMOCOCCAL ADMINISTRATION CHARGE ONE (01:00)
--- NOTE | 2019-02-11 01:05 | Emergency Department Note ---
Entered by Nicole Macias acting as a scribe for Kwesi Dickson MD History of Present Illness General Chief complaint: Arrhythmia/Palpitations Stated complaint: HEART PALPITATIONS, FAINTING, LIGHTHEADED History of Present Illness Provider complaint: light headedness Onset (ago): hour(s) (Earlier today) Location: head Severity: similar to prior episodes Pain Consistency: + other (episode) Quality: + other (lightheadedness) Associated symptoms: + other (Negative palpitations); no chest pain, no fever/chills, no nausea/vomiting and no shortness of breath The patient is a 78 year old male who presents to the Emergency Room with complaints of intermittent lightheadedness beginning past week. He states that he has had these symptoms intermittently over the past six months. The patient denies fever, vomiting, diarrhea, chest pain, shortness of breath, and heart palpitations. The patient also states that he passed out last week. The patient reports that his PCP gave him a holter monitor to wear over the past weekend to record his heart activity after his episode of syncope. He stated that he mailed in his monitor on Wednesday and he was told today that he had multiple episodes of an abnormal rhythm and was sent here immediately. The patient reports a history of a myocardial infarction with no chest pain symptoms. He only had a feeling of fatigue. Currently he has no symptoms. Home Medications Home Medications Medication Instructions Recorded Confirmed Type aspirin [Aspir-81] 81 mg PO DAILY 02/10/19 02/10/19 History canagliflozin [Invokana] 300 mg PO QAM 02/10/19 02/10/19 History cholecalciferol (vitamin D3) 2,000 unit PO DAILY 02/10/19 02/10/19 History [Vitamin D3] colchicine 1.2 mg PO .GOUT ATTACK 02/10/19 02/10/19 History losartan 25 mg PO DAILY 02/10/19 02/10/19 History metformin 1,000 mg PO DAILY 02/10/19 02/10/19 History metoprolol succinate 25 mg PO DAILY 02/10/19 02/10/19 History nitroglycerin [Nitrostat] 0.4 mg SUBLINGUAL UD PRN 02/10/19 02/10/19 History nystatin 1 applic TOPICAL BID PRN 02/10/19 02/10/19 History pravastatin 10 mg PO DAILY 02/10/19 02/10/19 History pregabalin [Lyrica] 150 mg PO BID 02/10/19 02/10/19 History rivaroxaban [Xarelto] 20 mg PO DAILY 02/10/19 02/10/19 History tamsulosin [Flomax] 0.4 mg PO DAILY 02/10/19 02/10/19 History Allergies Allergy/AdvReac Type Severity Reaction Status Date / Time lisinopril AdvReac Mild COUGHING Unverified 02/10/19 21:19 Past Med/Surg History Medical History Heart disease (Chronic) Ischemic cardiomyopathy (Chronic) "prior EF 35-40% in August 2008; improved EF 50-54% on 11/24/16 echo" Paroxysmal atrial fibrillation (Chronic) "postoperative" History of cardioembolic stroke (Chronic) Mitral regurgitation (Chronic) HTN (hypertension) (Chronic) Dyslipidemia (Chronic) DM type 2 (diabetes mellitus, type 2) (Chronic) BHUPINDER (obstructive sleep apnea) (Chronic) "not on CPAP" PFO (patent foramen ovale) (Chronic) Atrial septal aneurysm (Chronic) Gout (Chronic) 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) Chronic anticoagulation (Chronic) DJD of left shoulder (Resolved) Phlebitis/thrombophlebitis (Resolved) Surgical History History of left shoulder replacement (Chronic) 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) "2004 " History of right shoulder replacement (Chronic) "2009" H/O lithotripsy (Chronic) History of inguinal hernia repair (Chronic) "1954" Family History Brother V-tach required AICD Social History Preferred Language: Nepali Communication Ability: Effective Smoke Eater Required: No Beliefs That Will Affect Care: None marital status: Single Current Living Situation: Alone current occupational status: retired Other Information That Helps Us Care for You: No Feels Safe at Home: Yes Safety Concerns: Feels Safe At This Time Smoking Status: Never smoker Do You Dip or Chew Tobacco: No Hx Alcohol Use: No Hx Substance Use: No Review of Systems See HPI for pertinent positives & negatives. and A total of 10 systems reviewed and were otherwise negative Physical Exam Vital Signs Vital Signs - 24 hr 02/10/19 19:42 02/10/19 20:32 Temperature 36.3 C L Temperature Source Oral Sepsis Recent Fever Within 48 Hours No Sepsis Action Taken by Nursing No Action Required Pulse Rate 82 Pulse Rate [Apical] 76 Pulse Rhythm [Apical] Regular Pulse Strength [Apical] Normal Respiratory Rate 18 20 Respiratory Effort / Characteristics Non-Labored Spontaneous Non-Labored Spontaneous Respiratory Depth Normal Normal Respiratory Pattern Regular Regular Blood Pressure 194/99 H Blood Pressure [Left Arm] 170/82 H Blood Pressure Mean 130 Blood Pressure Mean [Left Arm] 111 Blood Pressure Position Sitting Blood Pressure Position [Left Arm] Sitting Pulse Oximetry 98 96 Oxygen Delivery Method Room Air Room Air Constitutional: Vital signs reviewed. Eyes: Pupils are equal round reactive to light. Conjunctiva are noninjected. ENT: Pharynx is clear without erythema or exudate. Mucous membranes are moist. Neck supple without meningeal signs. Respiratory: Clear to auscultation bilaterally. Breath sounds are equal bilaterally. Cardiovascular: Regular rate and rhythm. No rubs or gallops. GI: Soft, nondistended and nontender. Bowel sounds are present. Musculoskeletal: No peripheral edema. No lower extremity tenderness. Integumentary: No cyanosis. Neurological: The patient is awake and alert. No focal deficits. Psychiatric: Normal affect. Course 2000: Past medical records reviewed. The patient was evaluated in room A12B. A complete history and physical exam was performed. 2139: [facility] for further evaluation. 2142: I updated the patient on all results. He is in agreement with the treatment plan. Administered Medications Discontinued Medications Amiodarone HCl (Cordarone) 400 mg PO NOW ONE Stop: 02/10/19 22:30 Last Admin: 02/10/19 22:57 Dose: 400 mg Documented by: [id number] Potassium Chloride (Klor-Con M10) 20 meq PO NOW STA Stop: 02/10/19 22:08 Last Admin: 02/10/19 22:57 Dose: 20 meq Documented by: [id number] Medical Decision Making Differential Diagnosis Differential diagnoses include Vtach, CAD, ACS, electrolyte abnormality, LBBB, and others were considered. Medical Records Attestation: I reviewed the patient's medical records. (The patient was seen in the ED in October 2018 for oral bleeding after a tooth extraction. ) Home Medications Current Medication List: was personally reviewed by me Laboratory Data Attestation: I reviewed the patient's lab results. Result diagrams: 02/10/19 19:56 02/10/19 19:56 Lab Results 02/10/19 02/10/19 02/10/19 Range/Units 19:56 19:56 20:19 WBC 7.63 (4.8-10.8) K/uL RBC 5.28 (4.7-6.1) M/uL Hgb 15.0 (14.0-18.0) g/dL Hct 45.3 (42-52) % MCV 85.8 (80-100) fL MCH 28.4 (25-34) pg MCHC 33.1 (32-36) g/dL RDW Std Deviation 49.5 H (36.4-46.3) fL RDW Coeff of Perez 15.7 H (11.5-14.5) % Plt Count 125 L (130-400) K/uL MPV 11.7 H (7.4-10.4) fL Immature Gran % (Auto) 0.1 % Neut % (Auto) 52.4 % Lymph % (Auto) 37.1 % Dare % (Auto) 6.4 % Eos % (Auto) 3.5 % Baso % (Auto) 0.5 % Immature Gran # (Auto) 0.01 (0.00-0.02) K/uL Neut # (Auto) 3.99 (1.4-6.5) K/uL Lymph # (Auto) 2.83 (1.2-3.4) K/uL Dare # (Auto) 0.49 (0.11-0.59) K/uL Eos # (Auto) 0.27 (0-0.5) K/uL Baso # (Auto) 0.04 (0-0.2) K/uL Sodium 143 (136-145) mmol/L Potassium 3.5 (3.5-5.1) mmol/L Chloride 108 H (98-107) mmol/L Carbon Dioxide 28 (21-32) mmol/L Anion Gap 7.0 (3-11) BUN 22 H (7-18) mg/dl Creatinine 1.16 (0.6-1.4) mg/dl Est Cr Clr Drug Dosing 65.7 ml/min Est GFR ( Amer) 70.5 Est GFR (Non-Af Amer) 60.8 BUN/Creatinine Ratio 18.6 (10-20) Glucose 142 H (70-99) mg/dl Calcium 9.1 (8.5-10.1) mg/dl Magnesium 1.9 (1.8-2.4) mg/dl Total Bilirubin 0.9 (0.2-1) mg/dl AST 16 (15-37) U/L ALT 20 (12-78) U/L Alkaline Phosphatase 52 (45-117) U/L POC Troponin I < 0.03 (0-0.045) ng/ml NT-Pro-B Natriuret Pep 920 (0-1800) pg/ml Total Protein 7.2 (6.4-8.2) gm/dl Albumin 3.8 (3.4-5.0) gm/dl Globulin 3.4 (2.5-4.0) gm/dl Albumin/Globulin Ratio 1.1 (0.9-2) TSH 3.670 (0.300-4.500) uIu/ml Imaging Data Radiologist's Impression: Radiology results as stated below per my review and the radiologist's interpretation: XR chest 1V portable CLINICAL HISTORY: Ventricular tachycardia COMPARISON STUDY: 10/27/2015 FINDINGS: The heart is enlarged. There are postsurgical changes of a midline sternotomy. There is evidence of fawad venous hypertension. There is no lobar consolidation. There are no pleural effusions. There are bilateral shoulder arthroplasties. There are calcified mediastinal and hilar lymph nodes. IMPRESSION: Cardiomegaly and radiographic evidence of pulmonary venous hypertension. No evidence of focal pulmonary consolidation Electronically signed by: Hans Sanders M.D. 02/10/2019 8:32 PM ECG Data Attestation: I personally reviewed and interpreted this ECG as follows: Indication: other (vtach) Rate (beats per minute): 83 Rhythm: sinus rhythm Findings: + 1st degree AV block, + LBBB and + PVC Comparison ECG Date: from (12/12/2009) Change: the following changes noted (the 1st degree AV block and LBBB are new) Blood Pressure Blood Pressure Findings: Elevated blood pressure Blood Pressure Disposition: further management by hospitalist MDM Narrative I did evaluate the patient as noted above. The patient is presenting with a syncopal episode last week and an abnormal Holter monitor. Apparently he had s everal episodes of V. tach with a rate in the 200s. He did not notice any symptoms during the week and while he had the monitor on. Currently has no symptoms. IV access was established. The patient was placed on a continuous hall monitor. I did order and personally review the patient's 12-lead EKG as described above. He does have a left bundle branch block and first-degree AV block with PVCs. No old EKGs available other than from 2009. I did order and personally reviewed the images of the patient's chest x-ray as described above. He has cardiomegaly. I did order and review the patient's blood work as noted in the electronic medical record. His platelet count is slightly low. Teresa ctrolytes are unremarkable. Troponin is negative. TSH is normal. I did discuss the test results with the patient. I did recommend hospitalization for further evaluation and cardiac monitoring as well as cardiac consultation. I did discuss the case with the hospitalist and case making machine operator. Impression & Plan V-tach Discharge Plan Visit Data *Final* Discharge Date/Time: 02/10/19 23:04 Chief Complaint: Arrhythmia/Palpitations Stated Complaint: HEART PALPITATIONS, FAINTING, LIGHTHEADED ED Provider: Kwesi Dickson Discharge Problem: V-tach Patient Disposition: Admitted As Inpatient Discharge Instructions Interventions: ED Discharge Assessment Last Done: 02/10/19 23:04 The [email or web address]'s documentation has been prepared under my direction and personally reviewed by me in its entirety. I confirm that the note above accurately reflects all work, treatment, procedures, and medical decision making performed by me.
[2019-02-11 02:28] LABS: BUN Creatinine Ratio 17.4 (10-20); Calcium 8.2 mg/dl (8.5-10.1); Creatinine Clr Calc Pharmacy 70.5 ml/min; Est GFR (African American) 76.9; Est GFR (Non-African American) 66.3; Magnesium 1.7 mg/dl (1.8-2.4); Potassium 3.3 mmol/L (3.5-5.1)
[2019-02-11 02:33] LABS: Troponin I 0.019 ng/ml (0-0.045)
[2019-02-11] MEDS ORDERED: POTASSIUM CHLORIDE 20 MEQ TABCR PO STA (04:55)
[2019-02-11] MEDS ORDERED: MAGNESIUM SULFATE / D5W 1 GM/100 ML BAG IV ONE (05:00)
[2019-02-11 05:52] LABS: Estimated Average Glucose 151 mg/dl; Hemoglobin A1C 6.9 % (4.5-5.6)
[2019-02-11] MEDS ORDERED: POTASSIUM CHLORIDE 20 MEQ TABCR PO ONE (07:00)
[2019-02-11] MEDS: PRAVASTATIN SOD 10 MG TAB PO SCH (08:18)
[2019-02-11] MEDS: CHOLECALCIFEROL 1,000 UNITS TAB PO SCH (08:18)
[2019-02-11] MEDS: MAGNESIUM OXIDE 400 MG TAB PO SCH (08:18)
[2019-02-11] MEDS: ASPIRIN 81 MG ECTAB PO SCH (08:18)
[2019-02-11] MEDS: RIVAROXABAN 20 MG TAB PO SCH (08:18)
[2019-02-11] MEDS: LOSARTAN POTASSIUM 25 MG TAB PO SCH (08:18)
[2019-02-11] MEDS: AMIODARONE 200 MG TAB PO SCH ×3 (08:19→20:09)
[2019-02-11] MEDS: INSULIN ASPART 100 UNITS/ML 3 ML PEN SC SCH ×4 (08:21→20:08)
[2019-02-11] MEDS: POTASSIUM CHLORIDE 20 MEQ TABCR PO SCH ×2 (08:24→20:09)
[2019-02-11] MEDS ORDERED: ASPIRIN 81 MG ECTAB PO SCH (09:00)
--- NOTE | 2019-02-11 11:06 | Cardiology Consultation ---
Date of Consultation February 11, 2019 Assessment & Plan (1) Nonsustained ventricular tachycardia: Patient history of chronic nonsustained VT with recent increase in frequency on event monitor and symptomatic syncopal event We will initiate antiarrhythmic therapy with amiodarone cautiously given resting bradycardia and conduction changes Discontinue Toprol Echocardiogram ordered to be repeated to reassess LV function Patient will likely warrant a minimum pacemaker versus pacer defibrillator (2) Ischemic cardiomyopathy: Will reassess LV systolic function (3) Paroxysmal atrial fibrillation: Past history of embolic stroke on chronic anticoagulation with Xarelto (4) History of cardioembolic stroke: (5) BHUPINDER (obstructive sleep apnea): (6) S/P CABG x 3: History of Present Illness Reason for Consultation: Syncope, paroxysmal ventricular tachycardia Requesting Physician: Dr. García Attending Physician: Colt García MD History of Present Illness Patient is a complex 78-year-old male with underlying ongoing cardiac and medical issues 1. History of atherosclerotic coronary artery disease 1. status post acute myocardial infarction circa 1996 2. Ischemic cardiomyopathy, LVEF 35-40% by August 2008 echo, improved on last study of December 2017 EF 50% 3. Status post CABG x 3 on 10/21/2015. MCGEE to the LAD. SVG to OM1. SVG to the OM2. 2. Paroxysmal atrial fibrillation with past TIA stroke on chronic anticoagulation with Xarelto 3. Frequent ventricular ectopy 4. Mitral regurgitation 5. Atrial septal aneurysm 6. Patent foramen ovale 7. Hypertension 8. Dyslipidemia 9. Type II diabetes mellitus with neuropathy 10. Obstructive sleep apnea, untreated Patient presents after referral for admission. Recently evaluated for an acute syncopal spell patient swooning to the ground. Event monitor placed demonstrated to evaluate frequent episodes of nonsustained ventricular tachycardia. He denies currently chest pains, orthopnea, worsening shortness of breath. Notes no fevers chills unexplained infections. Notes no melena hematochezia dysuria hematuria overall is been feeling well otherwise. No abrupt change in exercise capacity. Ischemic work-up 01/07/2018 for ventricular ectopy demonstrated myocardial scar but no ischemia Patient has no difficulty taking medications and has been compliant with current medical regimen. No bleeding difficulties melena hematochezia dysuria hematuria. He remains chronically anticoagulated Allergies Allergy/AdvReac Type Severity Reaction Status Date / Time lisinopril AdvReac Mild COUGHING Unverified 02/10/19 21:19 Home Medications Home Medications Medication Instructions Recorded Confirmed Type aspirin [Aspir-81] 81 mg PO DAILY 02/10/19 02/10/19 History canagliflozin [Invokana] 300 mg PO QAM 02/10/19 02/10/19 History cholecalciferol (vitamin D3) 2,000 unit PO DAILY 02/10/19 02/10/19 History [Vitamin D3] colchicine 1.2 mg PO .GOUT ATTACK 02/10/19 02/10/19 History losartan 25 mg PO DAILY 02/10/19 02/10/19 History metformin 1,000 mg PO DAILY 02/10/19 02/10/19 History metoprolol succinate 25 mg PO DAILY 02/10/19 02/10/19 History nitroglycerin [Nitrostat] 0.4 mg SUBLINGUAL UD PRN 02/10/19 02/10/19 History nystatin 1 applic TOPICAL BID PRN 02/10/19 02/10/19 History pravastatin 10 mg PO DAILY 02/10/19 02/10/19 History pregabalin [Lyrica] 150 mg PO BID 02/10/19 02/10/19 History rivaroxaban [Xarelto] 20 mg PO DAILY 02/10/19 02/10/19 History tamsulosin [Flomax] 0.4 mg PO DAILY 02/10/19 02/10/19 History Patient History Medical History Heart disease (Chronic) Ischemic cardiomyopathy (Chronic) "prior EF 35-40% in August 2008; improved EF 50-54% on 11/24/16 echo" Paroxysmal atrial fibrillation (Chronic) "postoperative" History of cardioembolic stroke (Chronic) Mitral regurgitation (Chronic) HTN (hypertension) (Chronic) Dyslipidemia (Chronic) DM type 2 (diabetes mellitus, type 2) (Chronic) BHUPINDER (obstructive sleep apnea) (Chronic) "not on CPAP" PFO (patent foramen ovale) (Chronic) Atrial septal aneurysm (Chronic) Gout (Chronic) 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) Chronic anticoagulation (Chronic) DJD of left shoulder (Resolved) Phlebitis/thrombophlebitis (Resolved) Surgical History History of left shoulder replacement (Chronic) 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) "2004 " History of right shoulder replacement (Chronic) "2009" H/O lithotripsy (Chronic) History of inguinal hernia repair (Chronic) "1954" Family History Brother V-tach required AICD Social History Preferred Language: Kinyarwanda Communication Ability: Effective 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 General Required: No Beliefs That Will Affect Care: None marital status: Single Current Living Situation: Alone current occupational status: retired Other Information That Helps Us Care for You: No Feels Safe at Home: Yes Safety Concerns: Feels Safe At This Time Smoking Status: Never smoker Do You Dip or Chew Tobacco: No Hx Alcohol Use: No Hx Substance Use: No Physical Exam Constitutional: WD/WN, vitals as above Eyes: PERRL, conjunctivae normal, anicteric sclerae ENMT: external ear and nose normal, oropharynx normal Neck: trachea midline, no thyromegaly Respiratory: normal respiratory effort, lungs clear to auscultation Cardiovascular: Rate/Rhythm: regular rate and regular rhythm Heart Sounds: normal S1, normal S2 and + murmur (Grade 1/6 to 2/6 systolic right upper sternal border); no gallop Vessels: normal carotid upstroke; no JVD Extremities: no edema Ectopy audible Gastrointestinal (Abdomen): normal bowel sounds, soft, nontender, no hepatosplenomegaly Musculoskeletal: no cyanosis or clubbing, extremities motor strength 5/5 Skin: no rashes, warm and dry Neurologic: PERRL, EOMI, accommodation nl, no face palsy, no dysarthria Psychiatric: A+Ox3, euthymic affect Results & Data Vital Signs (Past 12 Hours) Vital Signs Temp Pulse Pulse Resp BP Pulse Ox 02/11/19 07:00 36.5 C 60 18 159/87 H 95 02/11/19 04:25 36.5 C 56 L 20 147/77 H 96 02/10/19 23:22 36.6 C 73 16 184/101 H 94 02/10/19 23:21 36.6 C 73 184/104 H 94 Laboratory Results Laboratory Results - last 24 hr 02/10/19 02/10/19 02/10/19 19:56 19:56 20:19 WBC 7.63 RBC 5.28 Hgb 15.0 Hct 45.3 MCV 85.8 MCH 28.4 MCHC 33.1 RDW Std Deviation 49.5 H RDW Coeff of Perez 15.7 H Plt Count 125 L MPV 11.7 H Immature Gran % (Auto) 0.1 Neut % (Auto) 52.4 Lymph % (Auto) 37.1 Shannon % (Auto) 6.4 Eos % (Auto) 3.5 Baso % (Auto) 0.5 Immature Gran # (Auto) 0.01 Neut # (Auto) 3.99 Lymph # (Auto) 2.83 Shannon # (Auto) 0.49 Eos # (Auto) 0.27 Baso # (Auto) 0.04 Sodium 143 Potassium 3.5 Chloride 108 H Carbon Dioxide 28 Anion Gap 7.0 BUN 22 H Creatinine 1.16 Est Cr Clr Drug Dosing 65.7 Est GFR ( Amer) 70.5 Est GFR (Non-Af Amer) 60.8 BUN/Creatinine Ratio 18.6 Glucose 142 H POC Glucose Estimat Average Glucose Hemoglobin A1c Calcium 9.1 Magnesium 1.9 Total Bilirubin 0.9 AST 16 ALT 20 Alkaline Phosphatase 52 POC Troponin I < 0.03 Troponin I NT-Pro-B Natriuret Pep 920 Total Protein 7.2 Albumin 3.8 Globulin 3.4 Albumin/Globulin Ratio 1.1 Triglycerides Cholesterol LDL Cholesterol, Calc VLDL Cholesterol, Calc HDL Cholesterol Cholesterol/HDL Ratio TSH 3.670 02/11/19 02/11/19 02/11/19 02:00 02:00 07:15 WBC RBC Hgb Hct MCV MCH MCHC RDW Std Deviation RDW Coeff of Perez Plt Count MPV Immature Gran % (Auto) Neut % (Auto) Lymph % (Auto) Shannon % (Auto) Eos % (Auto) Baso % (Auto) Immature Gran # (Auto) Neut # (Auto) Lymph # (Auto) Shannon # (Auto) Eos # (Auto) Baso # (Auto) Sodium 141 Potassium 3.3 L Chloride 109 H Carbon Dioxide 27 Anion Gap 5.0 BUN 19 H Creatinine 1.08 Est Cr Clr Drug Dosing 70.5 Est GFR ( Amer) 76.9 Est GFR (Non-Af Amer) 66.3 BUN/Creatinine Ratio 17.4 Glucose 166 H POC Glucose 114 H Estimat Average Glucose 151 Hemoglobin A1c 6.9 H Calcium 8.2 L Magnesium 1.7 L Total Bilirubin AST ALT Alkaline Phosphatase POC Troponin I Troponin I 0.019 NT-Pro-B Natriuret Pep Total Protein Albumin Globulin Albumin/Globulin Ratio Triglycerides 198 H Cholesterol 100 LDL Cholesterol, Calc 44 VLDL Cholesterol, Calc 40 HDL Cholesterol 16 Cholesterol/HDL Ratio 6 TSH 02/11/19 07:57 WBC RBC Hgb Hct MCV MCH MCHC RDW Std Deviation RDW Coeff of Perez Plt Count MPV Immature Gran % (Auto) Neut % (Auto) Lymph % (Auto) Shannon % (Auto) Eos % (Auto) Baso % (Auto) Immature Gran # (Auto) Neut # (Auto) Lymph # (Auto) Shannon # (Auto) Eos # (Auto) Baso # (Auto) Sodium Potassium Chloride Carbon Dioxide Anion Gap BUN Creatinine Est Cr Clr Drug Dosing Est GFR ( Amer) Est GFR (Non-Af Amer) BUN/Creatinine Ratio Glucose POC Glucose Estimat Average Glucose Hemoglobin A1c Calcium Magnesium Total Bilirubin AST ALT Alkaline Phosphatase POC Troponin I Troponin I 0.018 NT-Pro-B Natriuret Pep Total Protein Albumin Globulin Albumin/Globulin Ratio Triglycerides Cholesterol LDL Cholesterol, Calc VLDL Cholesterol, Calc HDL Cholesterol Cholesterol/HDL Ratio TSH Diagnostic Findings ZIO Patch event monitor prior to hospitalization, preliminary results Patient had a min HR of 46 bpm, max HR of 235 bpm, and avg HR of 71 bpm. Predominant underlying rhythm was Sinus Rhythm. First Degree AV Block was present. 350 Ventricular Tachycardia runs occurred, the run with the fastest interval lasting 12 beats with a max rate of 235 bpm, the longest lasting 9 beats with an avg rate of 98 bpm. 4 Supraventricular Tachycardia runs occurred, the run with the fastest interval lasting 15 beats with a max rate of 160 bpm, the longest lasting 10.2 secs with an avg rate of 123 bpm. Idioventricular Rhythm was present. Isolated SVEs were rare (<1.0%), SVE Couplets were rare (<1.0%), and SVE Triplets were rare (<1.0%). Isolated VEs were frequent (12.5%, 04080), VE Couplets were occasional (2.4%, 3715), and VE Triplets were rare (<1.0%, 159). Ventricular Bigeminy and Trigeminy were present ECG Additional Comments: 11-FEB-2019 07:06:23 [facility]-D ROUTINE RETRIEVAL Sinus bradycardia with 1st degree A-V block with occasional Premature ventricular complexes Non-specific intra-ventricular conduction block Cannot rule out Septal infarct , age undetermined T wave abnormality, consider inferolateral ischemia Abnormal ECG When compared with ECG of 10-FEB-2019 19:49, (unconfirmed) Fusion complexes are no longer Present QRS axis Shifted right T wave inversion now evident in Inferior leads T wave inversion more evident in Lateral lead
[2019-02-11] MEDS ORDERED: PERFLUTREN LIPID MICROSPHERE (DEFINITY) IV ONE (11:11)
--- NOTE | 2019-02-11 13:13 | Hospitalist Progress Note ---
Date of Service February 11, 2019 Assessment & Plan (1) Nonsustained ventricular tachycardia: Patient is a 78 yr male with H/O CAD S/P CABG x3 in 2016, HTN, DM II, diabetic neuropathy, BHUPINDER noncompliant with CPAP, history of cardioembolic CVA without residual deficit, PAF anticoagulated with Xarelto, CKD stage III, left vertebral artery stenosis, vitamin D deficiency who presents to [facility] at the request of [facility] cardiology due to abnormal Zio patch results. Nonsustained ventricular tachycardia H/O P.afib Currently rate controlled Discontinue metoprolol Started on amiodarone Troponin X 2: Negative ECHO: EF: 30-35%, moderate LVH, septal motion is consistent with conduction abnormality, inferior and posterior wall severely hypokinetic to akinetic with scar. All other wall segments moderately hypokinetic diffusely. 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 Last echo 12/2017 revealed EF 50-54% EF decreased to 30-35% Toprol XL discontinued to prevent bradycardia for now continue ASA, statin, losartan (3) Paroxysmal atrial fibrillation: Management as above (4) HTN (hypertension): slightly elevated Continue losartan May need to adjust meds (5) DM type 2 (diabetes mellitus, type 2): A1c 6.9 on 02/03/19 Hold outpatient metformin and Invokana NovoLog sliding scale per protocol (6) Neuropathy in diabetes: Continue Lyrica (7) DVT prophylaxis: Xarelto Disposition: Expect to discharge home when able Subjective Patient is seen and examined at bedside States feeling well, offers no complaints Denies any chest pain, shortness of breath, dizziness, abdominal pain Discussed with cardiology Currently rate controlled on amiodarone Review of Systems Review of Systems: All systems reviewed & are unremarkable except as noted in HPI & below Physical Exam Physical Exam: Physical Exam: Vitals signs as noted above General Appearance:Moderately built and nourished, no apparent distress Head: normocephalic, Atraumatic Eyes: normal inspection, EOMI Neck: supple, Trachea midline Respiratory/Chest: Normal breath sounds, CTA Cardiovascular: S1, S2, +faint systolic murmur Abdomen/GI:Soft, Non tender, Bowel sounds present Extremities/Musculoskelatal:normal inspection, no edema Neurologic/Psych:AAOX3, grossly no focal neurological deficits Skin: normal color, warm Results & Data Vital Signs (Past 12 Hours) Vital Signs Temp Pulse Pulse Resp BP Pulse Ox 02/11/19 11:23 36.5 C 63 18 168/79 H 95 02/11/19 07:00 36.5 C 60 18 159/87 H 95 02/11/19 04:25 36.5 C 56 L 20 147/77 H 96 Laboratory Results Short CBC 02/10/19 Range/Units 19:56 WBC 7.63 (4.8-10.8) K/uL Hgb 15.0 (14.0-18.0) g/dL Hct 45.3 (42-52) % Plt Count 125 L (130-400) K/uL BMP 02/10/19 02/11/19 19:56 02:00 Sodium 143 141 Potassium 3.5 3.3 L Chloride 108 H 109 H Carbon Dioxide 28 27 BUN 22 H 19 H Creatinine 1.16 1.08 Glucose 142 H 166 H Calcium 9.1 8.2 L Cardiac Enzymes 02/11/19 02/11/19 Range/Units 02:00 07:57 Troponin I 0.019 0.018 (0-0.045) ng/ml Liver Function 02/10/19 Range/Units 19:56 Total Bilirubin 0.9 (0.2-1) mg/dl AST 16 (15-37) U/L ALT 20 (12-78) U/L Alkaline Phosphatase 52 (45-117) U/L Albumin 3.8 (3.4-5.0) gm/dl
[2019-02-11 15:48] LABS: Magnesium 2.1 mg/dl (1.8-2.4); Potassium 4.4 mmol/L (3.5-5.1)
[2019-02-12 07:11] LABS: BUN Creatinine Ratio 21.7 (10-20); Calcium 8.5 mg/dl (8.5-10.1); Creatinine Clr Calc Pharmacy 79.4 ml/min; Est GFR (African American) 89.8; Est GFR (Non-African American) 77.4; Magnesium 2.2 mg/dl (1.8-2.4); Potassium 3.8 mmol/L (3.5-5.1)
[2019-02-12] MEDS: POTASSIUM CHLORIDE 20 MEQ TABCR PO SCH ×2 (08:01→20:27)
[2019-02-12] MEDS: MAGNESIUM OXIDE 400 MG TAB PO SCH (08:01)
[2019-02-12] MEDS: ASPIRIN 81 MG ECTAB PO SCH (08:01)
[2019-02-12] MEDS: AMIODARONE 200 MG TAB PO SCH ×2 (08:02→20:26)
[2019-02-12] MEDS: PRAVASTATIN SOD 10 MG TAB PO SCH (08:02)
[2019-02-12] MEDS: LOSARTAN POTASSIUM 25 MG TAB PO SCH ×2 (08:02→20:26)
[2019-02-12] MEDS: CHOLECALCIFEROL 1,000 UNITS TAB PO SCH (08:02)
[2019-02-12] MEDS: RIVAROXABAN 20 MG TAB PO SCH (08:03)
[2019-02-12] MEDS: INSULIN ASPART 100 UNITS/ML 3 ML PEN SC SCH ×4 (08:04→20:27)
[2019-02-12] MEDS ORDERED: POTASSIUM CHLORIDE 10 MEQ TABCR PO ONE (08:15)
--- NOTE | 2019-02-12 12:09 | Cardiology Progress Note ---
Date of Service February 12, 2019 Assessment & Plan (1) Nonsustained ventricular tachycardia: Patient history of chronic nonsustained VT with recent increase in frequency on event monitor and symptomatic syncopal event We will initiate antiarrhythmic therapy with amiodarone cautiously given resting bradycardia and conduction changes Echocardiogram demonstrates once again diminished LV systolic function. Will refer for pacer defibrillator, likely Wednesday. Hold rivaroxaban in a.m. Continue reduced dose amiodarone 200 mg twice per day (2) Ischemic cardiomyopathy: Will increase losartan to 25 mill grams twice per day for treatment and hypertension control (3) Paroxysmal atrial fibrillation: Past history of embolic stroke on chronic anticoagulation with Xarelto (4) History of cardioembolic stroke: (5) BHUPINDER (obstructive sleep apnea): (6) S/P CABG x 3: Subjective Patient is seen and examined chart medications telemetry reviewed. No cardiac complaints. Ventricular ectopy has diminished though occasional bradycardia noted. No dizziness/syncope or near syncope. No chest pains or shortness of breath. Ambulatory in room Physical Exam Constitutional: WD/WN, vitals as above Eyes: PERRL, conjunctivae normal, anicteric sclerae ENMT: external ear and nose normal, oropharynx normal Neck: trachea midline, no thyromegaly Respiratory: normal respiratory effort, lungs clear to auscultation Cardiovascular: Rate/Rhythm: regular rate and regular rhythm Heart Sounds: normal S1, normal S2 and + murmur (Grade 1/6 to 2/6 systolic right upper sternal border); no gallop Vessels: normal carotid upstroke; no JVD Extremities: no edema Gastrointestinal (Abdomen): normal bowel sounds, soft, nontender, no hepatosplenomegaly Musculoskeletal: no cyanosis or clubbing, extremities motor strength 5/5 Skin: no rashes, warm and dry Neurologic: PERRL, EOMI, accommodation nl, no face palsy, no dysarthria Psychiatric: A+Ox3, euthymic affect Results & Data Vital Signs (Past 12 Hours) Vital Signs Temp Pulse Pulse Resp BP Pulse Ox 02/12/19 11:30 36.6 C 58 L 19 147/95 H 96 02/12/19 07:43 52 L 02/12/19 07:08 36.8 C 55 L 19 145/75 H 96 02/12/19 04:12 36.4 C L 52 L 18 137/74 95 Laboratory Results Laboratory Results - last 24 hr 02/11/19 02/11/19 02/11/19 15:10 16:24 20:08 Sodium Potassium 4.4 D Chloride Carbon Dioxide Anion Gap BUN Creatinine Est Cr Clr Drug Dosing Est GFR ( Amer) Est GFR (Non-Af Amer) BUN/Creatinine Ratio Glucose POC Glucose 126 H 112 H Calcium Magnesium 2.1 02/12/19 02/12/19 02/12/19 05:44 07:27 11:29 Sodium 142 Potassium 3.8 Chloride 109 H Carbon Dioxide 26 Anion Gap 7.0 BUN 21 H Creatinine 0.95 Est Cr Clr Drug Dosing 79.4 Est GFR ( Amer) 89.8 Est GFR (Non-Af Amer) 77.4 BUN/Creatinine Ratio 21.7 H Glucose 115 H POC Glucose 107 H 114 H Calcium 8.5 Magnesium 2.2 ECG Additional Comments: 12-FEB-2019 06:59:44 [facility]-D ROUTINE RETRIEVAL Sinus bradycardia with 1st degree A-V block with frequent Premature ventricular complexes Non-specific intra-ventricular conduction block Cannot rule out Septal infarct (cited on or before 11-FEB-2019) T wave abnormality, consider inferior ischemia T wave abnormality, consider anterolateral ischemia Abnormal ECG When compared with ECG of 11-FEB-2019 QTC 457
--- NOTE | 2019-02-12 13:01 | Hospitalist Progress Note ---
Date of Service February 12, 2019 Assessment & Plan (1) Nonsustained ventricular tachycardia: Patient is a 78 yr male with H/O CAD S/P CABG x3 in 2016, HTN, DM II, diabetic neuropathy, BHUPINDER noncompliant with CPAP, history of cardioembolic CVA without residual deficit, PAF anticoagulated with Xarelto, CKD stage III, left vertebral artery stenosis, vitamin D deficiency who presents to [facility] at the request of [facility] cardiology due to abnormal Zio patch results. Nonsustained ventricular tachycardia H/O P.afib Currently rate controlled metoprolol discontinued Amiodarone dose adjusted due to bradycardia Troponin X 2: Negative ECHO: EF: 30-35%, moderate LVH, septal motion is consistent with conduction abnormality, inferior and posterior wall severely hypokinetic to akinetic with scar. All other wall segments moderately hypokinetic diffusely. Appreciate Cardiology Input Xarelto on hold for possible pacer/defibrillator placement on Wednesday Monitor and replace electrolytes as needed Hypokalemia Hypomagnesemia: Replace supplements as needed (2) Heart disease: H/O CABG x 3 in 2015 with ischemic [employer] Last echo 12/2017 revealed EF 50-54% EF decreased to 30-35% Toprol XL discontinued due to bradycardia continue ASA, statin, losartan (3) Paroxysmal atrial fibrillation: Management as above (4) HTN (hypertension): slightly elevated Continue losartan May need to adjust meds (5) DM type 2 (diabetes mellitus, type 2): A1c 6.9 on 02/03/19 Hold outpatient metformin and Invokana NovoLog sliding scale per protocol (6) Neuropathy in diabetes: Continue Lyrica (7) DVT prophylaxis: Xarelto held SCDs Disposition: Expect to discharge home when able Subjective Patient is seen and examined at bedside Offers no complaints Has bradycardia but asymptomatic Denies any chest pain, shortness of breath, dizziness, abdominal pain Discussed with cardiology today Likely Pacer defibrillator placement on Wednesday Xarelto held Review of Systems Review of Systems: All systems reviewed & are unremarkable except as noted in HPI & below Physical Exam Physical Exam: Physical Exam: Vitals signs as noted above General Appearance:Moderately built and nourished, no apparent distress Head: normocephalic, Atraumatic Eyes: normal inspection, EOMI Neck: supple, Trachea midline Respiratory/Chest: Normal breath sounds, CTA Cardiovascular: S1, S2, +faint systolic murmur Abdomen/GI:Soft, Non tender, Bowel sounds present Extremities/Musculoskelatal:normal inspection, no edema Neurologic/Psych:AAOX3, grossly no focal neurological deficits Skin: normal color, warm Results & Data Vital Signs (Past 12 Hours) Vital Signs Temp Pulse Pulse Resp BP Pulse Ox 02/12/19 11:30 36.6 C 58 L 19 147/95 H 96 02/12/19 07:43 52 L 02/12/19 07:08 36.8 C 55 L 19 145/75 H 96 02/12/19 04:12 36.4 C L 52 L 18 137/74 95 Laboratory Results BMP 02/11/19 02/12/19 15:10 05:44 Sodium 142 Potassium 4.4 D 3.8 Chloride 109 H Carbon Dioxide 26 BUN 21 H Creatinine 0.95 Glucose 115 H Calcium 8.5
[2019-02-13 06:42] LABS: Hematocrit (blood only) 48.5 % (42-52); Hemoglobin 16.5 g/dL (14.0-18.0); Mean Corpuscular Volume 86.1 fL (80-100); Mean Platelet Volume 11.3 fL (7.4-10.4); Platelet Count 129 K/uL (130-400); RDW Coefficient of Variation 15.7 % (11.5-14.5); RDW Standard Deviation 49.6 fL (36.4-46.3); Red Blood Count 5.63 M/uL (4.7-6.1); White Blood Count 7.72 K/uL (4.8-10.8)
[2019-02-13 07:06] LABS: BUN Creatinine Ratio 18.8 (10-20); Calcium 8.5 mg/dl (8.5-10.1); Creatinine Clr Calc Pharmacy 72.5 ml/min; Est GFR (African American) 80.5; Est GFR (Non-African American) 69.4; Magnesium 2.4 mg/dl (1.8-2.4); Potassium 4.1 mmol/L (3.5-5.1)
[2019-02-13] MEDS: POTASSIUM CHLORIDE 20 MEQ TABCR PO SCH (07:49)
[2019-02-13] MEDS: AMIODARONE 200 MG TAB PO SCH ×2 (07:50→19:55)
[2019-02-13] MEDS: LOSARTAN POTASSIUM 25 MG TAB PO SCH ×2 (07:50→19:54)
[2019-02-13] MEDS: ASPIRIN 81 MG ECTAB PO SCH (07:54)
[2019-02-13] MEDS: CHOLECALCIFEROL 1,000 UNITS TAB PO SCH (07:54)
[2019-02-13] MEDS: PRAVASTATIN SOD 10 MG TAB PO SCH (07:54)
[2019-02-13] MEDS: MAGNESIUM OXIDE 400 MG TAB PO SCH (07:54)
[2019-02-13] MEDS: INSULIN ASPART 100 UNITS/ML 3 ML PEN SC SCH ×4 (07:56→19:52)
--- NOTE | 2019-02-13 10:06 | Cardiology Progress Note ---
Date of Service February 13, 2019 Assessment & Plan (1) Nonsustained ventricular tachycardia: Patient history of chronic nonsustained VT with recent increase in frequency on event monitor and symptomatic syncopal event We will initiate antiarrhythmic therapy with amiodarone cautiously given resting bradycardia and conduction changes Echocardiogram demonstrates once again diminished LV systolic function. Will refer for pacer defibrillator, likely Wednesday. Hold rivaroxaban , patient n.p.o. after midnight tonight Continue reduced dose amiodarone 200 mg twice per day (2) Ischemic cardiomyopathy: Will increase losartan to 25 mill grams twice per day for treatment and hypertension control (3) Paroxysmal atrial fibrillation: Past history of embolic stroke on chronic anticoagulation with Xarelto (4) History of cardioembolic stroke: (5) BHUPINDER (obstructive sleep apnea): (6) S/P CABG x 3: Subjective Patient seen and examined, chart medications, telemetry reviewed. No complaints or symptoms overnight no significant arrhythmias other than complex ventricular ectopy. EKG pending for today Physical Exam Constitutional: WD/WN, vitals as above Eyes: PERRL, conjunctivae normal, anicteric sclerae ENMT: external ear and nose normal, oropharynx normal Neck: trachea midline, no thyromegaly Respiratory: normal respiratory effort, lungs clear to auscultation Cardiovascular: Rate/Rhythm: regular rate and regular rhythm Heart Sounds: normal S1, normal S2 and + murmur (Grade 1/6 to 2/6 systolic right upper sternal border); no gallop Vessels: normal carotid upstroke; no JVD Extremities: no edema Gastrointestinal (Abdomen): normal bowel sounds, soft, nontender, no hepatosplenomegaly Musculoskeletal: no cyanosis or clubbing, extremities motor strength 5/5 Skin: no rashes, warm and dry Neurologic: PERRL, EOMI, accommodation nl, no face palsy, no dysarthria Psychiatric: A+Ox3, euthymic affect Results & Data Vital Signs (Past 12 Hours) Vital Signs Temp Pulse Resp BP Pulse Ox 02/13/19 07:00 36.6 C 51 L 18 143/81 H 96 02/13/19 04:23 36.5 C 58 L 18 158/88 H 96 02/13/19 00:21 36.5 C 63 17 150/79 H 95
[2019-02-13] MEDS ORDERED: POTASSIUM CHLORIDE 20 MEQ TABCR PO SCH (21:00)
[2019-02-14] MEDS ORDERED: BUPIVACAINE 0.25% 30 ML VIAL ONE (09:35)
[2019-02-14] MEDS ORDERED: LIDOCAINE HCL 1% 20 ML VIAL ONE (09:35)
[2019-02-14] MEDS ORDERED: BACITRACIN INJ 50,000 UNIT VIAL ONE (09:35)
--- NOTE | 2019-02-14 09:49 | History & Physical Bridge Note ---
Date of Service February 14, 2019 History & Physical Bridge Note I have examined the patient, reviewed the History & Physical and in the interval since the performance of the History & Physical I have noted the following changes of clinical significance: Pt with syncope and alot of runs of NSVT and EF back down to 35%.
[2019-02-14] MEDS ORDERED: fentaNYL citrate 100 MCG/2 ML VIAL ONE (09:58)
[2019-02-14] MEDS ORDERED: CEFAZOLIN 250 MG/ML 1 GM VIAL ONE (09:58)
[2019-02-14] MEDS ORDERED: MIDAZOLAM HCL 5 MG/ML 1 ML VIAL ONE (09:58)
[2019-02-14] MEDS: INSULIN ASPART 100 UNITS/ML 3 ML PEN SC SCH ×4 (10:34→21:13)
[2019-02-14] MEDS: AMIODARONE 200 MG TAB PO SCH ×2 (11:24→21:11)
[2019-02-14] MEDS: PRAVASTATIN SOD 10 MG TAB PO SCH (11:24)
[2019-02-14] MEDS: ASPIRIN 81 MG ECTAB PO SCH (11:25)
[2019-02-14] MEDS: MAGNESIUM OXIDE 400 MG TAB PO SCH (11:25)
--- NOTE | 2019-02-14 11:25 | Post Anesthesia Assessment ---
Date of Service February 14, 2019 Post Sedation Assessment Vital Signs Temp Pulse Pulse Resp BP BP Pulse Ox 02/14/19 07:03 36.4 C L 42 L 18 151/87 H 95 02/14/19 03:57 36.6 C 48 L 18 156/70 H 94 02/14/19 00:00 55 L 02/13/19 23:40 36.6 C 58 L 18 170/92 H 97 02/13/19 19:43 36.7 C 63 18 138/76 96 02/13/19 15:31 36.7 C 50 L 20 147/75 H 97 02/13/19 14:27 59 L 02/13/19 12:27 165/77 H 02/13/19 11:38 36.5 C 53 L 17 163/122 H 174/103 H 95 Recovery Score Activity: Moves 4 extremities Respiration: Deep Breath/Cough Circulation: +/-20% PreAnes Value Consciousness: Fully Awake Oxygen Saturation: O2 needed for >90% Discharge Sedation Level of Care: Fast Track Phase II Post Sedation Plan On clinical assessment, the patient appears to have tolerated the sedation without complications. Patient is recovering as anticipated. Patient will continue to be monitored by nursing and may be discharged when sedation discharge criteria are met per below protocol. Upon Completions of procedure and additional 15 minutes continue every 5 minute vital signs and the P.A.R. score; then discharge to a Phase I or Fast Track to Phase II per the following guidelines: * Discharge Patient to appropriate Phase II area if PAR is 8 or greater or return to pre- procedure baseline. The post - procedure orders will be as directed. * If PAR score is less than 8 or not return to pre-procedure baseline then patient will follow Phase I monitoring till PAR is reached for Phase II. The Phase I may be done in procedure room or may call to secure a Phase I area. * If naloxone or flumazenil are used for reversal, hold in Phase I for continued monitoring from when last reversal dose was given for a minimum of 60 minutes or longer pending the nurse and/or physician discretion of patient condition before discharge to Phase II. Please call the Sedation Physician to re-evaluate and complete post-note for discharge to Phase II area. Do NOT discharge from procedure sedation or Phase 1 until post- sedation evaluation note is complete by procedure /sedation MD Sedation Discharge Instructions to be given to the patient at discharge to home.
[2019-02-14] MEDS: LOSARTAN POTASSIUM 25 MG TAB PO SCH ×2 (11:26→21:12)
[2019-02-14] MEDS: CHOLECALCIFEROL 1,000 UNITS TAB PO SCH (11:26)
--- NOTE | 2019-02-14 13:13 | Hospitalist Progress Note ---
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 Nonsustained ventricular tachycardia H/O P.afib Currently bradycardic metoprolol discontinued Amiodarone dose adjusted due to bradycardia Troponin X 2: Negative ECHO: EF: 30-35%, moderate LVH, septal motion is consistent with conduction abnormality, inferior and posterior wall severely hypokinetic to akinetic with scar. All other wall segments moderately hypokinetic diffusely. 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 Last echo 12/2017 revealed EF 50-54% EF decreased to 30-35% Toprol XL discontinued due to bradycardia continue ASA, statin, losartan (3) Paroxysmal atrial fibrillation: Management as above (4) HTN (hypertension): Continue losartan Monitor (5) DM type 2 (diabetes mellitus, type 2): A1c 6.9 on 02/03/19 Hold outpatient metformin and Invokana NovoLog sliding scale per protocol (6) Neuropathy in diabetes: Continue Lyrica (7) DVT prophylaxis: Xarelto held SCDs Re: Planned for procedure Disposition: Expect to discharge home when able Subjective Patient is seen and examined at bedside Offers no complaints Is bradycardic but asymptomatic Planned for Pacer/Defibrillator placement today Denies any chest pain, shortness of breath, dizziness, abdominal pain Xarelto on held Review of Systems Review of Systems: All systems reviewed & are unremarkable except as noted in HPI & below Physical Exam Physical Exam: Physical Exam: Vitals signs as noted above General Appearance:Moderately built and nourished, no apparent distress Head: normocephalic, Atraumatic Eyes: normal inspection, EOMI Neck: supple, Trachea midline Respiratory/Chest: Normal breath sounds, CTA Cardiovascular: S1, S2, +faint systolic murmur Abdomen/GI:Soft, Non tender, Bowel sounds present Extremities/Musculoskelatal:normal inspection, no edema Neurologic/Psych:AAOX3, grossly no focal neurological deficits Skin: normal color, warm Results & Data Vital Signs (Past 12 Hours) Vital Signs Temp Pulse Resp BP BP Pulse Ox 02/14/19 11:31 70 126/88 93 02/14/19 07:03 36.4 C L 42 L 18 151/87 H 95 02/14/19 03:57 36.6 C 48 L 18 156/70 H 94
[2019-02-14] MEDS: TRAMADOL HCL 50 MG TABLET PO PRN (14:32)
--- NOTE | 2019-02-14 15:19 | Cardiology Progress Note ---
Date of Service February 14, 2019 Assessment & Plan (1) Nonsustained ventricular tachycardia: Patient history of chronic nonsustained VT with recent increase in frequency on event monitor and symptomatic syncopal event Patient on amiodarone 200 mg twice per day Underwent pacer defibrillator insertion earlier today (2) Ischemic cardiomyopathy: Will increase losartan to 25 mill grams twice per day for treatment and hypertension control (3) Paroxysmal atrial fibrillation: Past history of embolic stroke on chronic anticoagulation with Xarelto will resume Xarelto in a.m. after a.m. chest XRY (4) History of cardioembolic stroke: (5) BHUPINDER (obstructive sleep apnea): (6) S/P CABG x 3: Subjective Patient seen and examined, chart, telemetry reviewed. Currently ventricular pacing on telemetry and having undergone pacer defibrillator insertion earlier today. Complains of left shoulder pain and discomfort no acute cardiac complaints no orthopnea no profound pleuritic discomfort Physical Exam Constitutional: WD/WN, vitals as above Eyes: PERRL, conjunctivae normal, anicteric sclerae ENMT: external ear and nose normal, oropharynx normal Neck: trachea midline, no thyromegaly Respiratory: normal respiratory effort, lungs clear to auscultation Cardiovascular: Rate/Rhythm: regular rate and regular rhythm Heart Sounds: normal S1, normal S2 and + murmur (Grade 1/6 to 2/6 systolic right upper sternal border); no gallop Vessels: normal carotid upstroke; no JVD Extremities: no edema Chest (Breasts): Additional Comments: Pacer defibrillator site bandaged Gastrointestinal (Abdomen): normal bowel sounds, soft, nontender, no hepatosplenomegaly Musculoskeletal: no cyanosis or clubbing, extremities motor strength 5/5 Skin: no rashes, warm and dry Neurologic: PERRL, EOMI, accommodation nl, no face palsy, no dysarthria Psychiatric: A+Ox3, euthymic affect Results & Data Vital Signs (Past 12 Hours) Vital Signs Temp Pulse Resp BP BP Pulse Ox 02/14/19 11:31 70 126/88 93 02/14/19 07:03 36.4 C L 42 L 18 151/87 H 95 02/14/19 03:57 36.6 C 48 L 18 156/70 H 94
[2019-02-15] MEDS: TRAMADOL HCL 50 MG TABLET PO PRN (00:01)
--- NOTE | 2019-02-15 06:37 | XRay Report ---
XR chest 2V routine CLINICAL HISTORY: post implant COMPARISON STUDY: 02/10/2019 FINDINGS: The heart is moderately enlarged. There are postsurgical changes of midline sternotomy. The re has been interval placement of a left subclavian dual-chamber intervenous pacemakers/defibrillator . There is no pneumothorax. Electrode position is unremarkable. There are minimal left basilar atelec tatic changes. There is no failure. There is no lobar consolidation. There are postsurgical changes o f bilateral shoulder arthroplasties.[ IMPRESSION: No evidence of pneumothorax status post placement of a left subclavian pacer/defibrillato r Electronically signed by: Hans Sanders M.D. 02/15/2019 6:36 AM
[2019-02-15 07:09] LABS: Hematocrit (blood only) 47.3 % (42-52); Hemoglobin 16.3 g/dL (14.0-18.0); Mean Corpuscular Hgb Conc 34.5 g/dL (32-36); Mean Corpuscular Volume 84.8 fL (80-100); Mean Platelet Volume 10.9 fL (7.4-10.4); Platelet Count 103 K/uL (130-400); RDW Coefficient of Variation 15.8 % (11.5-14.5); RDW Standard Deviation 48.4 fL (36.4-46.3); Red Blood Count 5.58 M/uL (4.7-6.1); White Blood Count 9.27 K/uL (4.8-10.8)
[2019-02-15 07:44] LABS: BUN Creatinine Ratio 20.2 (10-20); Calcium 9.1 mg/dl (8.5-10.1); Creatinine Clr Calc Pharmacy 65.6 ml/min; Est GFR (African American) 71.2; Est GFR (Non-African American) 61.5; Potassium 3.9 mmol/L (3.5-5.1)
[2019-02-15] MEDS: MAGNESIUM OXIDE 400 MG TAB PO SCH (08:26)
[2019-02-15] MEDS: LOSARTAN POTASSIUM 25 MG TAB PO SCH (08:26)
[2019-02-15] MEDS: AMIODARONE 200 MG TAB PO SCH (08:27)
[2019-02-15] MEDS: PRAVASTATIN SOD 10 MG TAB PO SCH (08:27)
[2019-02-15] MEDS: CHOLECALCIFEROL 1,000 UNITS TAB PO SCH (08:27)
[2019-02-15] MEDS: ASPIRIN 81 MG ECTAB PO SCH (08:27)
[2019-02-15] MEDS: INSULIN ASPART 100 UNITS/ML 3 ML PEN SC SCH ×2 (08:28→13:09)
--- NOTE | 2019-02-15 12:52 | Hospitalist Progress Note ---
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 Nonsustained ventricular tachycardia H/O P.Afib Beta-sumeet discontinued due to bradycardia arrhythmias Amiodarone dose adjusted due to bradycardia No ACS ECHO: EF: 30-35%, moderate LVH, septal motion is consistent with conduction abnormality, inferior and posterior wall severely hypokinetic to akinetic with scar. All other wall segments moderately hypokinetic diffusely. 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 Last echo 12/2017 revealed EF 50-54% EF decreased to 30-35% Toprol XL discontinued due to bradycardia continue ASA, statin, losartan (3) Paroxysmal atrial fibrillation: Management as above Will restart Xarelto upon discharge (4) HTN (hypertension): Continue losartan Blood pressure is in the upper side Continue current dose of blood pressure medication (5) DM type 2 (diabetes mellitus, type 2): A1c 6.9 on 02/03/19 Hold outpatient metformin and Invokana NovoLog sliding scale per protocol (6) Neuropathy in diabetes: Continue Lyrica (7) DVT prophylaxis: Xarelto held SCDs Re: Planned for procedure Disposition: Expect to discharge home when able We will discharge him today Subjective 02/15 Patient was seen and examined in telemetry unit He is a 78-year-old male who has a significant past medical history of CAD with h/o CABG x3 in 2016, HTN, T2 DM, diabetic neuropathy, BHUPINDER noncompliant with CPAP, 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 He is status post pacer defibrillator placement on 02/14 Denies any symptoms as of today except some pain locally with some bruising and adjoining areas Review of Systems Review of Systems: All systems reviewed and are unremarkable except as noted below Cardiovascular: Additional Comments: Left upper anterior chest pain secondary to insertion of ICD with adjoining bruised areas Physical Exam Physical Exam: No apparent distress at rest. Sitting on a chair, out of bed Constitutional: well developed and well nourished; no acute distress Eyes: PERRL, conjunctivae normal, anicteric sclerae ENMT: external ear and nose normal, oropharynx normal Mallampati Class: IV Neck: trachea midline, no thyromegaly Respiratory: normal respiratory effort Auscultation: lungs clear to auscultation bilaterally Cardiovascular: Rate/Rhythm: regular rate and regular rhythm Heart Sounds: normal S1, normal S2 and + murmur (Grade 1/6 to 2/6 systolic right upper sternal border) Vessels: normal carotid upstroke Extremities: no edema Gastrointestinal (Abdomen): Inspection/Auscultation: abdomen normal to inspection and normal bowel sounds Percussion/Palpation: abdomen soft Musculoskeletal: no cyanosis or clubbing, extremities motor strength 5/5 L ocalized bruising anterior to left shoulder joint without significant hematoma Skin: no rashes, warm and dry Neurologic: PERRL, EOMI, accommodation nl, no face palsy, no dysarthria Psychiatric: A+Ox3, euthymic affect Lymphatic: no cervical or axillary lymphadenopathy Results & Data Vital Signs (Past 12 Hours) Vital Signs Temp Pulse Resp BP Pulse Ox 02/15/19 12:00 36.7 C 71 22 159/81 H 96 02/15/19 07:08 36.7 C 73 19 156/83 H 92 02/15/19 03:51 36.8 C 79 18 171/97 H 95 Laboratory Results Short CBC 02/15/19 Range/Units 06:48 WBC 9.27 (4.8-10.8) K/uL Hgb 16.3 (14.0-18.0) g/dL Hct 47.3 (42-52) % Plt Count 103 L (130-400) K/uL BMP 02/15/19 06:48 Sodium 137 Potassium 3.9 Chloride 104 Carbon Dioxide 26 BUN 23 H Creatinine 1.15 Glucose 191 H Calcium 9.1 Medications Administered Current Inpatient Medications Acetaminophen (Tylenol) 650 mg PO Q4H PRN PRN Reason: Pain or Fever Stop: 03/12/19 23:20 Last Admin: 02/14/19 11:41 Dose: 650 mg Documented by: Amiodarone HCl (Cordarone) 200 mg PO BID [facility] Stop: 03/14/19 20:59 Last Admin: 02/15/19 08:27 Dose: 200 mg Documented by: Aspirin (Ecotrin Ectab) 81 mg PO QAM [facility] Stop: 03/13/19 08:59 Last Admin: 02/15/19 08:27 Dose: 81 mg Documented by: Dextrose (Dextrose 50%) 25 - 50 ml IV UD PRN; Protocol PRN Reason: Hypoglycemia Protocol Stop: 03/12/19 23:20 Glucagon (Glucagen) 1 mg SQ UD PRN; Protocol PRN Reason: Hypoglycemia Protocol Stop: 03/12/19 23:20 Glucose (Glucose 40%) 15 - 30 gm PO UD PRN; Protocol PRN Reason: Hypoglycemia Protocol Stop: 03/12/19 23:20 Glucose (Dex4 Glucose) 4 - 8 tabs PO UD PRN; Protocol PRN Reason: Hypoglycemia Protocol Stop: 03/12/19 23:20 Insulin Aspart (Novolog Flexpen) 0 units SC ACHS [facility] Stop: 03/13/19 07:29 Last Admin: 02/15/19 08:28 Dose: 4 units Documented by: Losartan Potassium (Cozaar) 25 mg PO BID [facility] Stop: 03/14/19 20:59 Last Admin: 02/15/19 08:26 Dose: 25 mg Documented by: Magnesium Oxide (Mag-Ox) 400 mg PO QAM [facility] Stop: 03/13/19 08:59 Last Admin: 02/15/19 08:26 Dose: 400 mg Documented by: Miscellaneous (Carbohydrates For Hypoglycemia) 15 - 30 gm PO UD PRN PRN Reason: Hypoglycemia Treatment Stop: 03/12/19 23:20 Nitroglycerin (Nitrostat) 0.4 mg SL UD PRN PRN Reason: Chest Pain Stop: 03/12/19 23:20 Polyethylene Glycol (Miralax Powder Packet) 17 gm PO DAILY PRN PRN Reason: Constipation Stop: 03/12/19 23:20 Pravastatin Sodium (Pravachol) 10 mg PO DAILY [facility] Stop: 03/13/19 08:59 Last Admin: 02/15/19 08:27 Dose: 10 mg Documented by: Rivaroxaban (Xarelto) 20 mg PO DAILY [facility] Stop: 03/13/19 08:59 Last Admin: 02/12/19 08:03 Dose: 20 mg Documented by: Tramadol HCl (Ultram) 50 mg PO Q6H PRN PRN Reason: Pain Stop: 03/16/19 14:14 Last Admin: 02/15/19 00:01 Dose: 50 mg Documented by: Vitamin D (Vitamin D3) 2,000 units PO DAILY [facility] Stop: 03/13/19 08:59 Last Admin: 02/15/19 08:27 Dose: 2,000 units Documented by:
--- NOTE | 2019-02-15 14:06 | Cardiology Progress Note ---
Date of Service February 15, 2019 Assessment & Plan (1) Nonsustained ventricular tachycardia: Patient history of chronic nonsustained VT with recent increase in frequency on event monitor and symptomatic syncopal event Patient on amiodarone 200 mg twice per day U status post successful pacer defibrillator insertion Plan discharge on amiodarone 200 mg twice per day, off metoprolol Increasing losartan as a below Follow-up with Dr Bray 1 month Xarelto (2) Ischemic cardiomyopathy: Will increase losartan to 25 mill grams twice per day for treatment and hypertension control (3) Paroxysmal atrial fibrillation: in a.m. after a.m. chest XRY (4) History of cardioembolic stroke: (5) BHUPINDER (obstructive sleep apnea): (6) S/P CABG x 3: Subjective Patient seen and examined, chart, telemetry reviewed. Currently ventricular pacing on telemetry and having undergone pacer defibrillator insertion day prior. Device working appropriately. No sustained arrhythmias. No chest pain or discomfort with mild incisional pain Physical Exam Constitutional: WD/WN, vitals as above Eyes: PERRL, conjunctivae normal, anicteric sclerae ENMT: external ear and nose normal, oropharynx normal Neck: trachea midline, no thyromegaly Respiratory: normal respiratory effort, lungs clear to auscultation Cardiovascular: Rate/Rhythm: regular rate and regular rhythm Heart Sounds: normal S1, normal S2 and + murmur (Grade 1/6 to 2/6 systolic right upper sternal border); no gallop Vessels: normal carotid upstroke; no JVD Extremities: no edema Chest (Breasts): Chest: + pacemaker (Insertion site clean without surrounding hematoma or erythema) Gastrointestinal (Abdomen): normal bowel sounds, soft, nontender, no hepatosplenomegaly Musculoskeletal: no cyanosis or clubbing, extremities motor strength 5/5 Skin: no rashes, warm and dry Neurologic: PERRL, EOMI, accommodation nl, no face palsy, no dysarthria Psychiatric: A+Ox3, euthymic affect Results & Data Vital Signs (Past 12 Hours) Vital Signs Temp Pulse Resp BP Pulse Ox 02/15/19 12:00 36.7 C 71 22 159/81 H 96 02/15/19 07:08 36.7 C 73 19 156/83 H 92 02/15/19 03:51 36.8 C 79 18 171/97 H 95 Laboratory Results Laboratory Results - last 24 hr 02/14/19 02/14/19 02/15/19 16:33 20:07 06:48 WBC 9.27 RBC 5.58 Hgb 16.3 Hct 47.3 MCV 84.8 MCH 29.2 MCHC 34.5 RDW Std Deviation 48.4 H RDW Coeff of Perez 15.8 H Plt Count 103 L MPV 10.9 H Sodium Potassium Chloride Carbon Dioxide Anion Gap BUN Creatinine Est Cr Clr Drug Dosing Est GFR ( Amer) Est GFR (Non-Af Amer) BUN/Creatinine Ratio Glucose POC Glucose 164 H 163 H Calcium 02/15/19 02/15/19 02/15/19 06:48 07:19 11:42 WBC RBC Hgb Hct MCV MCH MCHC RDW Std Deviation RDW Coeff of Perez Plt Count MPV Sodium 137 Potassium 3.9 Chloride 104 Carbon Dioxide 26 Anion Gap 7.0 BUN 23 H Creatinine 1.15 Est Cr Clr Drug Dosing 65.6 Est GFR ( Amer) 71.2 Est GFR (Non-Af Amer) 61.5 BUN/Creatinine Ratio 20.2 H Glucose 191 H POC Glucose 180 H 230 H Calcium 9.1 Diagnostic Findings Chest x-ray without pneumothorax or infiltrate
--- NOTE | 2019-02-15 22:52 | Operative Report ---
DATE OF OPERATION: 02/14/2019 PREOPERATIVE DIAGNOSES: Ischemic cardiomyopathy, syncope suspected due to ventricular tachycardia, and sinus bradycardia. POSTOPERATIVE DIAGNOSES: Ischemic cardiomyopathy, syncope suspected due to ventricular tachycardia, and sinus bradycardia. PROCEDURE: Dual chamber rate responsive implantable cardiac defibrillator under fluoroscopic guidance. SURGEON: Bri Bray DO [employer] FINISH SPRAYER: None. ANESTHESIA: Monitored conscious sedation administered under my supervision by Audrey Simpson, start time 10:14, end time 11:03. Total of 4 mg of Versed, 100 mcg fentanyl. INTRAVENOUS FLUIDS: 27 mL. ANTIBIOTICS: Two grams of Ancef. URINE OUTPUT: Not applicable. SPECIMENS: None. FINDINGS: See below. DRAINS: None. INDICATIONS: This is a a 78-year-old male with a past medical history for coronary artery disease, history of a CABG x3 on 10/21/2015, paroxysmal atrial fibrillation on Xarelto, history of a CVA, PVCs, nonsustained VT, obstructive sleep apnea, noncompliant with CPAP, gout, vitamin D deficiency, mitral regurgitation, ASD, hypertension, hyperlipidemia, diabetes. He most recently had a syncopal episode and wore a Zio patch which showed a lot of nonsustained VT. Due to the significant amount of nonsustained VT and a history of syncope and along with his ischemic cardiomyopathy and ejection fraction of 35%, he was told to go to the Emergency Room. He eventually showed up in the Emergency Room and he was started on amiodarone. He does have sinus bradycardia and EP was consulted to do a defibrillator. CONSENT: Consent was obtained prior to the patient going into the electrophysiology lab. The patient was informed of the risks, benefits, alternatives to the procedure. Risks include but not limited to sudden cardiac , cardiac arrhythmias, cerebrovascular accident, myocardial infarction, injury to the blood vessels, chamber of the heart, lungs, bleeding and infection. The patient accepted these risks and agreed to go ahead with this procedure as planned. Informed consent was obtained. DESCRIPTION OF THE PROCEDURE: The patient was brought into the electrophysiology lab in a fasting state. He was connected to continuous cardiac monitoring. A timeout was performed to ensure patient's identity and procedure correctly. The patient received prophylactic antibiotics prior to incision. He was prepped and draped over the left infraclavicular space in normal surgical standard fashion. Monitored conscious sedation was given throughout the procedure for the patient's comfort level. [place] precautions were maintained throughout the procedure. A 10 mL of 1% lidocaine and bupivacaine mixture were given over the left deltopectoral groove. Incision was made in the left deltopectoral groove. Blunt dissection was performed down to identify the cephalic vein. The cephalic vein was identified and isolated using 0 silk ties. The vein was nicked with an 11-blade and a guidewire was inserted without any resistance. An 8-Turkmen sheath was inserted over the guidewire without any resistance. Dilator was removed and a second guidewire was inserted through the 8-Turkmen sheath to allow for retained venous access. The sheath was removed, flushed, dilator reinserted over it and then it was reinserted over one of the guidewires. The guidewire and dilator were removed. The right ventricular defibrillator lead was then advanced into right ventricle and positioned into the right ventricular apex under fluoroscopic guidance. There was adequate pacing and sensing thresholds. There was no diaphragmatic stimulation with high output pacing. It was a 9.5-Turkmen sheath that was then reinserted over one of the guidewires. The 9.5-Turkmen sheath was then peeled away and lead was fixated to pectoralis muscle using 0 silk suture. An 8-Turkmen sheath was then inserted over the retained guidewire without any resistance. The guidewire and dilator removed. The right atrial lead was then advanced into right atrium and positioned into the right atrial appendage under fluoroscopic guidance. There was adequate pacing and sensing thresholds and no diaphragmatic stimulation with high output pacing. The 8-Turkmen sheath was peeled away and the lead was fixated to pectoralis muscle using 0 silk suture. A defibrillator pocket was created using blunt dissection over the pectoralis muscle within the pectoralis fascia. There was some backbleeding at the vein site, so a pursestring using 2-[address] needle was placed. The pocket was then flushed with copious amounts of bacitracin and saline wash and inspected for hemostasis. The defibrillator was then attached to the leads, making sure that the pins were in appropriate position, passed the set screw, and set screws were all tightened. The defibrillator was then placed in the pocket, making sure that the leads were lying flat beneath the device. Latasha stat was placed in the pocket as the patient was going back on the [facility]. Then incision was closed in a 3-layer fashion using 2-0 Vicryl interrupted suture followed by 3-0 suture followed by a 4-0 Monocryl running stitch and Dermabond was applied followed then by a pressure dressing. EQUIPMENT: 1. The pulse generator is a Medtronic Evera MRI XT DR Robbins [id number], serial number #[id number]. 2. Right atrial lead Medtronic 5076-52 cm, serial #[id number]. 3. Right ventricular lead, Medtronic 6935M-62 cm, serial #[id number]. INTRAOPERATIVE TESTIN. Right atrial lead: P-waves 3.6 millivolts, impedance 654 ohms, threshold 0.4 volts at 0.6 milliamps. 2. Right ventricular lead: R-waves 8.1 millivolts, impedance 727 ohms, threshold 0.5 volts at 0.6 milliamps. FINAL MEASUREMENTS THROUGH THE DEVICE: 1. Right atrial lead: P-wave 0.9 millivolts, impedance 494 ohms, threshold 0.75 volts at 0.4 milliseconds. 2. Right ventricular lead: R-wave 10.5 millivolts, impedance 722 ohms, threshold 0.75 volts at 0.4 milliseconds. 3. RV coil 78 ohms. FINAL PARAMETERS: MVP-R 70/130. Right atrial and right ventricular amplitude 3.5 volts, pulse width 0.4 milliseconds, sensitivity 0.3 millivolts. A VT monitor zone 150 beats per minute for 28 detection intervals, a VT zone at 167 beats per minute for 16 detection intervals and a VF zone at 200 beats a minute for 24-32 detection intervals. IMPRESSION: Successful implantation of a dual chamber rate responsive implantable cardiac defibrillator secondary to syncope highly suspicious for ventricular tachycardia, a lot of nonsustained ventricular tachycardia on a Zio patch, ischemic cardiomyopathy, and sinus bradycardia. PLAN: Monitor patient overnight, 12-lead ECG, chest x-ray. He is not allowed to lift left elbow or left shoulder for 1 month. He cannot lift more than 10 pounds with the left arm for 2 weeks. He can shower in 2 days, let water run over the incision, do not scrub it. He can go back on his Xarelto and he should follow up in our [facility] office for device and wound check in 1 week's time and follow up with me in 1 month's time as we started amiodarone. I attest to the content of the Intraoperative Record and any orders documented therein. Any exception s are noted below.
--- NOTE | 2019-02-16 08:07 | Discharge Summary ---
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 cardiology due to abnormal Zio patch results. A 3 day ZIO monitor was performed revealing 350 brief episodes of nonsustained V. tach. The run with the fastest was 12 beats in duration with a maximum rate of 235 bpm. Longest episode was 9 beats in duration with average rate of [address] Do made multiple attempts to contact patient and was unsuccessful. He was able to reach patient's brother who relayed message to patient. He overall feels well. "I always feel good." Approximately 9 days ago patient was standing with the sandwhich in hand when he had an episode of syncope. He recalls going down to ground and losing the sandwhich out of his hand, but did feel he lost consciousness for brief second. No sustained injury. He states approximately every 5 to 6 weeks he has intermittent dizziness that lasts approximately 30 seconds to a minute and goes away. He felt he should be evaluated given above symptoms and recent syncope. General practitioner ordered ZIO patch which revealed arrhythmia. Patient was assessed by elective physiology approx 1 year ago in November 2018 which was also found to have episodes of asymptomatic nonsustained ventricular tachycardia. Work-up at that time revealed echocardiogram with RCA territory scar with preserved LVEF. He had a nuclear stress test which was negative for inducible ischemia. Ongoing observation was recommended. He denies any recent illness, fever, chills, sweats, current lightheadedness or dizziness, chest pain, shortness of breath, orthopnea, palpitations, nausea, vomiting, diarrhea, change in bowel or urinary habits. His appetite is good. H e does not notice any swelling. Admission Exam Per Admitting Provider Physical Exam: Gen: WD/WN, M, NAD, sitting up in bed, pleasant, conversing easily Head: Normocephalic, Atraumatic Eyes: Sclera normal, no conjunctival injection, PERRLA, EOMI ENT: Gross hearing intact, normal pharynx, mucous membranes moist Neck: supple, no adenopathy, No JVD, no bruit, Resp: Clear to auscultation b/l, no wheeze, rales, rhonchi. Normal insp/exp effort, no accessory muscle use CV: +sternal scar noted, Regular rate, regular rhythm, no murmur, rub, gallop, +freq ectopy Abd: protuberant abd, +BS x 4, soft, nontender, nondistended Musculoskeletal: moves extremities active rom x 4, strength intact, good industrial relations representative strength Extremities: +1pedal edema, trace pre-tibial edema with mild venous insuff changes bilaterally Skin: warm, moist, no rash, negative turgor, cap refill < 2sec Neuro: Alert and oriented x 3, speech normal, good mood/affect, cran nerve 2-12 intact grossly : deferred Principal Diagnosis Ventricular tachycardia status post pacer defibrillator placement on 02/14/2019, paroxysmal atrial fibrillation on Xarelto, CAD status post CABG x3 in 2016, type 2 diabetes, hypertension Discharge Exam Constitutional well developed and well nourished; no acute distress Eyes PERRL, conjunctivae normal, anicteric sclerae ENMT external ear and nose normal, oropharynx normal Mallampati Class: IV Neck trachea midline, no thyromegaly Respiratory normal respiratory effort Auscultation: lungs clear to auscultation bilaterally Cardiovascular Rate/Rhythm: regular rate and regular rhythm Heart Sounds: normal S1, normal S2 and + murmur (Grade 1/6 to 2/6 systolic right upper sternal border) Vessels: normal carotid upstroke Extremities: no edema Gastrointestinal (Abdomen) Inspection/Auscultation: abdomen normal to inspection and normal bowel sounds Percussion/Palpation: abdomen soft Musculoskeletal no cyanosis or clubbing, extremities motor strength 5/5 Skin no rashes, warm and dry Neurologic PERRL, EOMI, accommodation nl, no face palsy, no dysarthria Psychiatric A+Ox3, euthymic affect Lymphatic no cervical or axillary lymphadenopathy Discharge Data Allergies Allergy/AdvReac Type Severity Reaction Status Date / Time lisinopril AdvReac Mild COUGHING Verified 02/12/19 12:22 Consultations 02/10/19 21:40 ED Decision to Admit Stat 02/10/19 23:21 Consult Cardiology Routine 02/12/19 12:13 Consult Cardiology Routine Procedures Performed Operation Date: 02/14/19 10:00 Actual Procedures p ICD Insertion Single or Dual - Bri Bray DO s Venogram, Unilateral - Bri Bray DO Ordered Studies 02/14/19 06:45 EP Lab Images for PACS ONCE Hospital Course (1) Nonsustained ventricular tachycardia: Patient is a 78 yr male with H/O CAD S/P CABG x3 in 2016, HTN, DM II, diabetic neuropathy, 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 cardiology due to abnormal Zio patch results. Nonsustained ventricular tachycardia H/O P.Afib Beta-sumeet discontinued due to bradycardia arrhythmias Amiodarone dose adjusted due to bradycardia No ACS ECHO: EF: 30-35%, moderate LVH, septal motion is consistent with conduction abnormality, inferior and posterior wall severely hypokinetic to akinetic with scar. All other wall segments moderately hypokinetic diffusely. Appreciate Cardiology Input and recommendation Appreciate retirement plan specialist input and recommendation Status post pacer defibrillator placement on 02/14 Has been doing fine following the procedure Denies any significant symptoms Hypokalemia Hypomagnesemia: Replace supplements as needed (2) Heart disease: H/O CABG x 3 in 2016 with ischemic MUCK BOSS Last echo 12/2017 revealed EF 50-54% EF decreased to 30-35% Toprol XL discontinued due to bradycardia continue ASA, statin, losartan (3) Paroxysmal atrial fibrillation: Management as above Will restart Xarelto upon discharge (4) HTN (hypertension): Continue losartan Blood pressure is in the upper side Continue current dose of blood pressure medication (5) DM type 2 (diabetes mellitus, type 2): A1c 6.9 on 02/03/19 Hold outpatient metformin and Invokana NovoLog sliding scale per protocol (6) Neuropathy in diabetes: Continue Lyrica (7) DVT prophylaxis: Xarelto held SCDs Re: Planned for procedure Disposition: Expect to discharge home when able We will discharge him today Total Time Total Time Spent Total Time Spent (In Minutes): 35 minutes Total Time Includes: Examination of the Patient, Discharge Planning, Medication Reconciliation and Communication With Other Providers Discharge Plan Discharge Items Patient Disposition: Home - Self-Care Reason For Visit: VENTRICULAR TACHYCARDIA Discharge Diagnosis: Ventricular tachycardia status post pacer defibrillator placement on 02/14/2019, paroxysmal atrial fibrillation on Xarelto, CAD status post CABG x3 in 2016, type 2 diabetes, hypertension Condition: Fair Discharge Goals: Decrease discomfort, Improve function and Increase independence Activity: As commented below Activity Comment: do not lift your left elbow over your left shoulder for 1 month Lifting: No more than 10 pounds Lifting Comment: do not lift more than 10 pounds with your left arm for 2 weeks Bathing: Keep incision dry Bathing Comment: can shower th02/16 do not scrub the incision let water run over it Non-emergency contact: Primary Care Provider Call non-emergency contact if: you have any medication questions and your symptoms worsen Follow-up/Referrals: Gerson Ramírez MD [Primary Care Provider] - 02/22/19 12:45 pm (Your appointment is with Dr. Delbert Jenkins.) Bri Bray DO [Physician] - 03/17/19 10:00 am (Your appointment is in [facility]) Diet: Carb Consistent or DM2 and Heart Healthy Addtl Provider Instructions: device and wound check at [facility] on Saturday 02/24 if you notice any swelling call Dr. Bray's office immediately Prescriptions: New amiodarone 200 mg Tablet 200 mg PO BID 30 Days Qty: 60 RF: 0 Continued aspirin [Aspir-81] 81 mg Tablet,Delayed Release (Dr/Ec) 81 mg PO DAILY RF: 0 pravastatin 10 mg Tablet 10 mg PO DAILY RF: 0 tamsulosin [Flomax] 0.4 mg Capsule 0.4 mg PO DAILY RF: 0 metformin 1,000 mg Tablet 1,000 mg PO DAILY RF: 0 nystatin 100,000 unit/gram Cream 1 applic TOPICAL BID PRN (Reason: AFFECTED AREA) RF: 0 nitroglycerin [Nitrostat] 0.4 mg Tablet, Sublingual 0.4 mg sublingual UD PRN (Reason: Chest Pain) RF: 0 colchicine 0.6 mg Tablet 1.2 mg PO .GOUT ATTACK RF: 0 Lyrica 150 mg Capsule 150 mg PO BID RF: 0 cholecalciferol (vitamin D3) [Vitamin D3] 1,000 unit Tablet 2,000 unit PO DAILY RF: 0 Xarelto 20 mg Tablet 20 mg PO DAILY RF: 0 Invokana 300 mg Tablet 300 mg PO QAM RF: 0 Changed losartan 25 mg Tablet 25 mg PO BID Qty: 0 RF: 0 Discontinued metoprolol succinate 25 mg Tablet Extended Release 24 Hr 25 mg PO DAILY RF: 0 Stand-Alone Forms: [facility] Discharge Orders: Discharge Order (Routine); Ordered 02/15/19 Ordered By: Papito Reeves Admission Data Admit Date/Time: 02/10/19 22:00 Attending Provider: Papito Reeves Admit Provider: Estella Romero Primary Care Provider: Gerson Ramírez Other Providers: Jimmy Snyder ; Babak Cm ; Conrad Do ; Reyes Cardoza ; Kwesi Rosas ; Regis العلي ; Luiz Pina ; Isi Diego ; Bri Bray ; Colt García Service: Telemetry Other Interventions: Discharge Summary Assessment (RN) Last Done: 02/15/19 14:37 DC Date/Time DO NOT enter until pt leaves facility: 02/15/19 15:41
== END 2019-02-15 15:41 | disposition home or self-care (01) | DRG 227 ==
LOC: ED 19:38 → 2E 22:00 → SUATTDRO 22:00 → 2E 23:04
PROC: EPB.ICD (2019-02-14 10:00)

== ENCOUNTER 2019-02-16 14:14 | Observation (INO) ==
[2019-02-16] MEDS ORDERED: AMIODARONE 200 MG TAB PO ONE (14:49)
[2019-02-16 14:53] LABS: Basophils # (auto) 0.03 K/uL (0-0.2); Basophils % (auto) 0.3 %; Eosinophils # (auto) 0.23 K/uL (0-0.5); Eosinophils % (auto) 2.5 %; Hematocrit (blood only) 44.3 % (42-52); Hemoglobin 15.2 g/dL (14.0-18.0); Immature Granulocytes # (auto) 0.02 K/uL (0.00-0.02); Immature Granulocytes % (auto) 0.2 %; Lymphocytes # (auto) 1.91 K/uL (1.2-3.4); Lymphocytes % (auto) 20.5 %; Mean Corpuscular Hgb Conc 34.3 g/dL (32-36); Mean Corpuscular Volume 84.7 fL (80-100); Mean Platelet Volume 10.4 fL (7.4-10.4); Monocytes # (auto) 0.87 K/uL (0.11-0.59); Monocytes % (auto) 9.3 %; Neutrophils # (auto) 6.25 K/uL (1.4-6.5); Neutrophils % (auto) 67.2 %; Platelet Count 103 K/uL (130-400); RDW Standard Deviation 49.8 fL (36.4-46.3); Red Blood Count 5.23 M/uL (4.7-6.1); White Blood Count 9.31 K/uL (4.8-10.8)
--- NOTE | 2019-02-16 14:53 | XRay Report ---
XR chest 1V portable CLINICAL HISTORY: Chest Pain distention COMPARISON STUDY: 02/15/2019 FINDINGS: Moderate cardiomegaly. Median sternotomy. Permanent bipolar cardiac pacemaker. Slight prominence of the bronchovascular and interstitial markings. A component of early congestive f ailure is considered. IMPRESSION: Pulmonary vascular congestion versus early congestive failure. The above report was generated using voice recognition software. It may contain grammatical, syntax or spelling errors. Electronically signed by: Luiz Bourne M.D. 02/16/2019 2:52 PM
[2019-02-16 15:02] LABS: Prothrombin Time 10.7 Seconds (9.0-12.0)
--- NOTE | 2019-02-16 15:03 | Emergency Department Note ---
Entered by Virgie Rowell acting as a scribe for History of Present Illness General Chief complaint: Chest Pain Stated complaint: DIZZY Time Seen by Provider: 02/16/19 14:33 Source: patient Limitations: no limitations History of Present Illness Provider complaint: Chest Pain Onset (ago): hour(s) 1 Location: chest Maximum Pain Intensity: 3 Associated symptoms: + denies other symptoms (-heart racing, -diarrhea, -c ongestion) and + other (+light-headed); no cough, no fever/chills and no nausea/vomiting Treatments prior to arrival: none The patient is a 78 year old male who presents to the Emergency Room with complaints of chest pain that began approximately 1 hour prior to arrival. The patient states that he felt a shock from his pacemaker at 1307 and then a second shock at 1400. The patient states that both of shocks were the same intensity. The patient states that he felt 30 seconds of light-headedness preceding his second shock but denies feeling like his heart was racing prior to either of the shocks. The patient denies any fevers, chills, nausea, vomiting, diarrhea, cough, or congestion. The patient states that he was discharged from the hospital yesterday and states that he only took 1 dose of his amiodarone prior to being discharged from the hospital. The patient states that he could not pickling grader his amiodarone from the pharmacy so he states that he did not take his prescribed dosage the night prior to arrival or his dosage this morning. EMR Reviewed: The patient had his pacemaker AICD replaced on 02/14/19. The patient had CHF with an ejection fraction (EF) of 30-35%. Home Medications Home Medications Medication Instructions Recorded Confirmed Type Invokana 300 mg PO QAM 02/10/19 02/16/19 History Lyrica 150 mg PO BID 02/10/19 02/16/19 History Xarelto 20 mg PO DAILY 02/10/19 02/16/19 History aspirin [Aspir-81] 81 mg PO DAILY 02/10/19 02/16/19 History cholecalciferol (vitamin D3) 2,000 unit PO DAILY 02/10/19 02/16/19 History [Vitamin D3] colchicine 1.2 mg PO .GOUT ATTACK 02/10/19 02/16/19 History metformin 1,000 mg PO DAILY 02/10/19 02/16/19 History nitroglycerin [Nitrostat] 0.4 mg SUBLINGUAL UD PRN 02/10/19 02/16/19 History nystatin 1 applic TOPICAL BID PRN 02/10/19 02/16/19 History pravastatin 10 mg PO DAILY 02/10/19 02/16/19 History tamsulosin [Flomax] 0.4 mg PO DAILY 02/10/19 02/16/19 History amiodarone 200 mg PO BID 30 Days #60 tab 02/15/19 02/16/19 Rx losartan 25 mg PO BID #0 tab 02/15/19 02/16/19 Rx Allergies Allergy/AdvReac Type Severity Reaction Status Date / Time lisinopril AdvReac Mild COUGHING Verified 02/12/19 12:22 Past Med/Surg History Medical History Ischemic cardiomyopathy (Chronic) "prior EF 35-40% in August 2008; improved EF 50-54% on 11/24/16 echo" Paroxysmal atrial fibrillation (Chronic) "postoperative" History of cardioembolic stroke (Chronic) Mitral regurgitation (Chronic) HTN (hypertension) (Chronic) Dyslipidemia (Chronic) DM type 2 (diabetes mellitus, type 2) (Chronic) BHUPINDER (obstructive sleep apnea) (Chronic) "not on CPAP" PFO (patent foramen ovale) (Chronic) Atrial septal aneurysm (Chronic) Gout (Chronic) 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) Chronic anticoagulation (Chronic) DJD of left shoulder (Resolved) Phlebitis/thrombophlebitis (Resolved) Surgical History History of left shoulder replacement (Chronic) 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) "2004 " History of right shoulder replacement (Chronic) "2009" H/O lithotripsy (Chronic) History of inguinal hernia repair (Chronic) "1954" AICD present, double chamber Family History Brother V-tach required AICD Social History Preferred Language: Chilean Communication Ability: Effective Development Representative Required: No Beliefs That Will Affect Care: None marital status: Single Current Living Situation: Alone current occupational status: retired Feels Safe at Home: Yes Safety Concerns: Feels Safe At This Time Smoking Status: Never smoker Do You Dip or Chew Tobacco: No Hx Alcohol Use: No Hx Substance Use: No Review of Systems See HPI for pertinent positives & negatives. and A total of 10 systems reviewed and were otherwise negative Physical Exam Vital Signs Vital Signs - 24 hr 02/16/19 14:27 02/16/19 14:49 02/16/19 15:04 Temperature 36.7 C Temperature Source Oral Sepsis Recent Fever Within 48 Hours No Sepsis New/Unexplained Change in Mental Status No Sepsis Action Taken by Nursing No Action Required Pulse Rate 85 72 Pulse Rate from SpO2 Sensor 68 Pulse Rhythm Regular Pulse Strength Normal Respiratory Rate 20 17 Respiratory Effort / Characteristics Non-Labored Spontaneous Respiratory Depth Normal Respiratory Pattern Regular Blood Pressure 168/90 H 156/84 H Blood Pressure Mean 116 108 Blood Pressure Position Sitting Pulse Oximetry 95 94 95 Oxygen Delivery Method Room Air Room Air Room Air 02/16/19 15:19 02/16/19 15:20 02/16/19 15:30 Temperature Temperature Source Sepsis Recent Fever Within 48 Hours Sepsis New/Unexplained Change in Mental Status Sepsis Action Taken by Nursing Pulse Rate 72 72 74 Pulse Rate from SpO2 Sensor 73 66 70 Pulse Rhythm Pulse Strength Respiratory Rate 15 8 L 9 L Respiratory Effort / Characteristics Respiratory Depth Respiratory Pattern Blood Pressure 146/100 H Blood Pressure Mean 115 Blood Pressure Position Pulse Oximetry 96 97 96 Oxygen Delivery Method Room Air Room Air Room Air 02/16/19 15:40 02/16/19 15:50 Temperature Temperature Source Sepsis Recent Fever Within 48 Hours Sepsis New/Unexplained Change in Mental Status Sepsis Action Taken by Nursing Pulse Rate 73 70 Pulse Rate from SpO2 Sensor 73 65 Pulse Rhythm Pulse Strength Respiratory Rate 14 13 Respiratory Effort / Characteristics Respiratory Depth Respiratory Pattern Blood Pressure Blood Pressure Mean Blood Pressure Position Pulse Oximetry 97 97 Oxygen Delivery Method Room Air Room Air GENERAL: Awake, alert, well appearing, no distress. HENT: Normocephalic, atraumatic. TM's normal. Mucous membranes are dry. EYES: PERRL. EOMI. Normal conjunctiva. Sclera non-icteric. NECK: Supple. No nuchal rigidity. FROM. No JVD or bruit. RESPIRATORY: CTAB CARDIAC: RRR. 2/6 systolic murmur. ABDOMEN: Soft, non distended. No tenderness to palpation. No rebound or guarding. No masses. RECTAL: Deferred. MUSCULOSKELETAL: Unremarkable. No edema. No discoloration. Gross motor strength symmetric. NEURO: Normal sensorium. No sensory or motor deficits noted. SKIN: No rash or jaundice noted. Left upper CW AICD site c/d/i. LYMPH: No adenopathy. Course 1438: The patient was evaluated in room A9B, and a complete history and physical examination were performed. 1450: I discussed the patient's case with Dr. [facility] Stacker who states that he will be down to examine the patient. 1537: I discussed the patient's case with Dr. Dahiana Llanos [facility] Hay Stacker and the [employer] mail technician who both agree that the patient's shocks appear to be appropriate. 1550: I discussed the patient's case with Dr. Talbot [facility] Stacker who states that he is going to admit the patient directly to observe the patient overnight. Consultations Consultation #1: Dr. Dahiana Llanos [facility] Hay Stacker Time: 14:50 Consultation #2: Dr. Cardoza Romi [facility] Hay Stacker and the [employer] mail technician Time: 15:37 Consultation #3: Dr. Talbot [facility] Stacker Time: 15:50 Administered Medications Amiodarone HCl (Cordarone) 200 mg PO BID MELANI Stop: 03/18/19 20:59 Last Admin: 02/16/19 20:41 Dose: 200 mg Documented by: [id number] Amiodarone HCl/Dextrose (Nexterone / D5w) 360 mg in 200 mls @ 16.667 mls/hr IV .Q12H MELANI Stop: 03/18/19 22:11 Last Admin: 02/16/19 22:48 Dose: 0.5 mg/min, 16.7 mls/hr Documented by: [id number] Cosigned by: [id number] Insulin Aspart (Novolog Flexpen) 0 units SC ACHS MELANI Stop: 03/18/19 17:57 Last Admin: 02/16/19 21:20 Dose: 3 units Documented by: [id number] Cosigned by: [id number] Admin: 02/16/19 19:10 Dose: 5 units Documented by: [id number] Cosigned by: [id number] Losartan Potassium (Cozaar) 25 mg PO BID MELANI Stop: 03/18/19 20:59 Last Admin: 02/16/19 20:40 Dose: 25 mg Documented by: [id number] Metoprolol Succinate (Toprol Xl) 12.5 mg PO BID MELANI Stop: 03/18/19 20:59 Last Admin: 02/16/19 20:39 Dose: 12.5 mg Documented by: [id number] Pregabalin (Lyrica) 150 mg PO BID MELANI Stop: 03/18/19 20:59 Last Admin: 02/16/19 20:43 Dose: 150 mg Documented by: [id number] Discontinued Medications Amiodarone HCl (Cordarone) 200 mg PO NOW ONE Stop: 02/16/19 14:50 Last Admin: 02/16/19 14:57 Dose: 200 mg Documented by: [id number] Furosemide (Lasix) Confirm Administered Dose 40 mg IV .STK-MED ONE Stop: 02/16/19 16:27 Last Admin: 02/16/19 16:27 Dose: 20 mg Documented by: [id number] Amiodarone HCl/Dextrose (Nexterone / D5w) 150 mg in 100 mls @ 600 mls/hr IV ONE STA Stop: 02/16/19 16:42 Last Infusion: 02/16/19 16:55 Dose: 0 mls/hr Documented by: [id number] Cosigned by: [id number] Admin: 02/16/19 16:40 Dose: 600 mls/hr Documented by: [id number] Cosigned by: [id number] Amiodarone HCl/Dextrose (Nexterone / D5w) 360 mg in 200 mls @ 33.333 mls/hr IV .Q6H MELANI Stop: 02/16/19 22:34 Last Infusion: 02/16/19 22:45 Dose: 0 mg/min, 0 mls/hr Documented by: [id number] Cosigned by: [id number] Admin: 02/16/19 16:41 Dose: 1 mg/min, 33.3 mls/hr Documented by: [id number] Cosigned by: [id number] Losartan Potassium (Cozaar) 25 mg PO NOW STA Stop: 02/16/19 17:24 Last Admin: 02/16/19 18:17 Dose: 25 mg Documented by: [id number] Medical Decision Making Differential Diagnosis Differential diagnoses includes acute coronary syndrome, pulmonary embolus, aortic dissection, musculoskeletal pain, pneumonia, pleural effusion, pneumotho rax, gastritis, peptic ulcer disease. Medical Records Attestation: I reviewed the patient's medical records. Home Medications Current Medication List: was personally reviewed by me Laboratory Data Attestation: I reviewed the patient's lab results. Result diagrams: 02/16/19 14:41 02/16/19 14:41 Lab Results 02/16/19 02/16/19 02/16/19 Range/Units 14:41 14:41 14:41 WBC 9.31 (4.8-10.8) K/uL RBC 5.23 (4.7-6.1) M/uL Hgb 15.2 (14.0-18.0) g/dL Hct 44.3 (42-52) % MCV 84.7 (80-100) fL MCH 29.1 (25-34) pg MCHC 34.3 (32-36) g/dL RDW Std Deviation 49.8 H (36.4-46.3) fL RDW Coeff of Perez 16.0 H (11.5-14.5) % Plt Count 103 L (130-400) K/uL MPV 10.4 (7.4-10.4) fL Immature Gran % (Auto) 0.2 % Neut % (Auto) 67.2 % Lymph % (Auto) 20.5 % [place] % (Auto) 9.3 % Eos % (Auto) 2.5 % Baso % (Auto) 0.3 % Immature Gran # (Auto) 0.02 (0.00-0.02) K/uL Neut # (Auto) 6.25 (1.4-6.5) K/uL Lymph # (Auto) 1.91 (1.2-3.4) K/uL [place] # (Auto) 0.87 H (0.11-0.59) K/uL Eos # (Auto) 0.23 (0-0.5) K/uL Baso # (Auto) 0.03 (0-0.2) K/uL PT 10.7 (9.0-12.0) Seconds INR 1.0 (0.9-1.1) Sodium 135 L (136-145) mmol/L Potassium 4.0 (3.5-5.1) mmol/L Chloride 103 (98-107) mmol/L Carbon Dioxide 26 (21-32) mmol/L Anion Gap 6.0 (3-11) BUN 19 H (7-18) mg/dl Creatinine 1.18 (0.6-1.4) mg/dl Est Cr Clr Drug Dosing 59.5 ml/min Est GFR ( Amer) 69.1 Est GFR (Non-Af Amer) 59.6 BUN/Creatinine Ratio 16.0 (10-20) Glucose 254 H (70-99) mg/dl Calcium 8.8 (8.5-10.1) mg/dl Phosphorus 3.0 (2.5-4.9) mg/dl Magnesium 1.9 (1.8-2.4) mg/dl Total Bilirubin 1.3 H (0.2-1) mg/dl AST 11 L (15-37) U/L ALT 17 (12-78) U/L Alkaline Phosphatase 55 (45-117) U/L Troponin I 0.030 (0-0.045) ng/ml Total Protein 7.3 (6.4-8.2) gm/dl Albumin 3.8 (3.4-5.0) gm/dl Globulin 3.5 (2.5-4.0) gm/dl Albumin/Globulin Ratio 1.1 (0.9-2) Lipase 95 (73-393) U/L Imaging Data Radiologist's Impression: Radiology results as stated below per my review and the radiologist's interpretation: XR chest 1V portable CLINICAL HISTORY: Chest Pain distention COMPARISON STUDY: 02/15/2019 FINDINGS: Moderate cardiomegaly. Median sternotomy. Permanent bipolar cardiac pacemaker. Slight prominence of the bronchovascular and interstitial markings. A component of early congestive failure is considered. IMPRESSION: Pulmonary vascular congestion versus early congestive failure. The above report was generated using voice recognition software. It may contain grammatical, syntax or spelling errors. Electronically signed by: Luiz Bourne M.D. 02/16/2019 2:52 PM ECG Data Attestation: I personally reviewed and interpreted this ECG as follows: Indication: chest pain Rate (beats per minute): 94 Rhythm: atrial fibrillation Findings: + nonspecific-ST abn; no acute ischemic change Blood Pressure Blood Pressure Findings: Elevated blood pressure MDM Narrative The patient is a pleasant 78 old gentleman with a past medical history of CHF with recent EF of 30-35% status post AICD on 02/14, CAD status post CABG in 2016, hypertension, DM 2, BHUPINDER, history of CVA without deficits, paroxysmal A. fib on Xarelto, CKD who presents emergency department with 2 shocks from his newly placed AICD today per hpi. Patient reports his first shock happened shortly after 1:00 after eating and standing up from a meeting without any preceding symptoms. Reports a second shock approximately 2:00 when arriving here to the parking lot with approximately 30 seconds of lightheadedness preceding his shock. Of note, the patient reports he was discharged from hospital yesterday in the afternoon and was unable to get to the pharmacy and therefore did not take his new prescription of amiodarone last night or this morning. On arrival patient is no acute distress, afebrile stable vital signs. EKG appears to demonstrates afib without overt acute ischemia. CXR with vascular prominence. WBC, H/H wnl. Platelets 103 similar to prior values. Glucose 250s and chemistry without acidosis. LFTs and electrolytes unremarkable. Troponin 0.03 wnl. Case was discussed with Dr. Cardoza, [facility] cardiology, who agreed with providing patient with his missed dose of amiodarone while waiting for interrogation results. Upon completion of device interrogation findings were reviewed with Dr. Cardoza and [facility] mail technician. Report confirms appropriate shocks. The refore, Dr. Cardoza will admit the patient for further management and IV amiodarone load. Impression & Plan Ventricular tachycardia Discharge Plan Visit Data *Final* Discharge Date/Time: 02/16/19 17:11 Chief Complaint: Chest Pain Stated Complaint: DIZZY ED Provider: Stefan Salguero Discharge Problem: Ventricular tachycardia Patient Disposition: Admitted As Inpatient Discharge Instructions Interventions: ED Discharge Assessment Last Done: 02/16/19 17:11 The scribe's documentation has been prepared under my direction and personally reviewed by me in its entirety. I confirm that the note above accurately reflects all work, treatment, procedures, and medical decision making performed by me.
[2019-02-16 15:26] LABS: Albumin Level 3.8 gm/dl (3.4-5.0); Calcium 8.8 mg/dl (8.5-10.1); Creatinine Clr Calc Pharmacy 59.5 ml/min; Est GFR (African American) 69.1; Est GFR (Non-African American) 59.6; Magnesium 1.9 mg/dl (1.8-2.4)
[2019-02-16 15:31] LABS: Albumin Globulin Ratio 1.1 (0.9-2); Bilirubin,Total 1.3 mg/dl (0.2-1); Globulin 3.5 gm/dl (2.5-4.0); Total Protein 7.3 gm/dl (6.4-8.2); Troponin I 0.03 ng/ml (0-0.045)
[2019-02-16] MEDS ORDERED: MAGNESIUM HYDROXIDE SUSP 30 ML UDC PO PRN (16:07)
[2019-02-16] MEDS ORDERED: ACETAMINOPHEN 325 MG TAB PO PRN (16:07)
[2019-02-16] MEDS ORDERED: NITROGLYCERIN SL 0.4 MG/TAB TAB SL PRN (16:10)
[2019-02-16] MEDS ORDERED: AMIODARONE IV BOLUS / DRIP IV STA (16:12)
[2019-02-16] MEDS ORDERED: FUROSEMIDE 20 MG in SYRINGE 0 ML IV ONE (16:15)
--- NOTE | 2019-02-16 16:22 | Cardiology Consultation ---
Date of Consultation February 16, 2019 Assessment & Plan (1) V-tach: Patient once again demonstrates sustained VT on device with appropriate pace termination during 4 episodes and device discharge termination on 2 occurrences. Patient appears to be suboptimally treated with medications with patient missing several doses post discharge to home. Plan: We will admit to telemetry begin IV amiodarone for amiodarone load. Reinstitute beta-sumeet. Continue losartan initially at 25 mg twice per day for blood pressure control Single dose of furosemide IV this evening given mild plethora of edema on exam and x-ray (2) Ischemic cardiomyopathy: (3) Defibrillator discharge: (4) HTN (hypertension): (5) Paroxysmal atrial fibrillation: History of Present Illness Reason for Consultation: Sustained ventricular tachycardia, appropriate defibrillator discharge Requesting Physician: Dr. ly Attending Physician: Reyes Cardoza MD History of Present Illness Patient is a 78-year-old male, discharged from [facility] day prior with underlying history 1. Atherosclerotic coronary artery disease 2. Acute myocardial infarction circa 1996 3. Ischemic cardiomyopathy, LVEF 35-40% by August 2008 echo, improved on last study of December 2017 EF 50% 4. Status post CABG x 3 on 10/21/2015. MCGEE to the LAD. SVG to OM1. SVG to the OM2. 5. Paroxysmal atrial fibrillation with past TIA stroke on chronic anticoagulation with Xarelto 6. Frequent ventricular ectopy 7. Frequent nonsustained ventricular tachycardia with past syncope status post pacer defibrillator implantation 02/14/2019 8. Hypertension 9. Dyslipidemia 10. Type II diabetes mellitus with neuropathy 11. Obstructive sleep apnea, untreated Patient presents on prompt return noting upon discharge yesterday did not yet spanish moss picker prescriptions from pharmacy. He has not received amiodarone or his prior prehospital beta-sumeet post discharge. Today he experienced a sensation of lightheadedness followed by sudden defibrillator discharge. He presented to [facility] and recommended to present to the ER. Patient arrived by personal vehicle. While in the parking lot he once again had brief lightheadedness without syncope but followed by defibrillator discharge. He is currently comfortable in the emergency room. Initial EKG in the emergency room demonstrated atrial fibrillation rate 94 bpm with wide-complex conduction. Pacer defibrillator interrogation revealed epis odes of ventricular tachycardia , 4 terminated by ventricular pacing and 2 by appropriate device discharge. He is currently comfortable without complaint other than mild tenderness overlying defibrillator insertion site. Notes no worsening shortness of breath orthopnea or worsening peripheral edema notes no fevers chills or productive cough notes no bleeding difficulties. Denies any acute neurologic complaints. Notes it was awaiting a ride to the pharmacy to spanish moss picker prescriptions resulting in medication delay Allergies Allergy/AdvReac Type Severity Reaction Status Date / Time lisinopril AdvReac Mild COUGHING Verified 02/12/19 12:22 Home Medications Home Medications Medication Instructions Recorded Confirmed Type Invokana 300 mg PO QAM 02/10/19 02/16/19 History Lyrica 150 mg PO BID 02/10/19 02/16/19 History Xarelto 20 mg PO DAILY 02/10/19 02/16/19 History aspirin [Aspir-81] 81 mg PO DAILY 02/10/19 02/16/19 History cholecalciferol (vitamin D3) 2,000 unit PO DAILY 02/10/19 02/16/19 History [Vitamin D3] colchicine 1.2 mg PO .GOUT ATTACK 02/10/19 02/16/19 History metformin 1,000 mg PO DAILY 02/10/19 02/16/19 History nitroglycerin [Nitrostat] 0.4 mg SUBLINGUAL UD PRN 02/10/19 02/16/19 History nystatin 1 applic TOPICAL BID PRN 02/10/19 02/16/19 History pravastatin 10 mg PO DAILY 02/10/19 02/16/19 History tamsulosin [Flomax] 0.4 mg PO DAILY 02/10/19 02/16/19 History amiodarone 200 mg PO BID 30 Days #60 tab 02/15/19 02/16/19 Rx losartan 25 mg PO BID #0 tab 02/15/19 02/16/19 Rx Patient History Medical History Heart disease (Chronic) Ischemic cardiomyopathy (Chronic) "prior EF 35-40% in August 2008; improved EF 50-54% on 11/24/16 echo" Paroxysmal atrial fibrillation (Chronic) "postoperative" History of cardioembolic stroke (Chronic) Mitral regurgitation (Chronic) HTN (hypertension) (Chronic) Dyslipidemia (Chronic) DM type 2 (diabetes mellitus, type 2) (Chronic) BHUPINDER (obstructive sleep apnea) (Chronic) "not on CPAP" PFO (patent foramen ovale) (Chronic) Atrial septal aneurysm (Chronic) Gout (Chronic) 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) Chronic anticoagulation (Chronic) DJD of left shoulder (Resolved) Phlebitis/thrombophlebitis (Resolved) Surgical History History of left shoulder replacement (Chronic) 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) "2004 " History of right shoulder replacement (Chronic) "2009" H/O lithotripsy (Chronic) History of inguinal hernia repair (Chronic) "1954" Social History Preferred Language: Nepali Communication Ability: Effective Grain Processor Required: No Beliefs That Will Affect Care: None marital status: Single Current Living Situation: Alone current occupational status: retired Feels Safe at Home: Yes Safety Concerns: Feels Safe At This Time Smoking Status: Never smoker Do You Dip or Chew Tobacco: No Hx Alcohol Use: No Hx Substance Use: No Review of Systems Review of Systems: All systems reviewed & are unremarkable except as noted in HPI & below Physical Exam Constitutional: WD/WN, vitals as above Eyes: PERRL, conjunctivae normal, anicteric sclerae ENMT: external ear and nose normal, oropharynx normal Neck: + thick neck Respiratory: normal respiratory effort, lungs clear to auscultation Cardiovascular: Rate/Rhythm: regular rate and regular rhythm Heart Sounds: normal S1 and normal S2; no murmur and no cardiac rub Vessels: normal peripheral pulses; no JVD and no carotid bruit Extremities: + edema (1-2+) Chest (Breasts): Chest: + pacemaker (Present in the left upper chest with moderate sized surrounding hematoma, no drainage or erythema) Gastrointestinal (Abdomen): normal bowel sounds, soft, nontender, no hepatosplenomegaly Results & Data Vital Signs (Past 12 Hours) Vital Signs Temp Pulse Pulse Resp BP BP Pulse Ox 02/16/19 15:59 72 25 H 146/100 H 95 02/16/19 14:49 94 02/16/19 14:27 36.7 C 85 20 168/90 H 95 Laboratory Results Laboratory Results - last 24 hr 02/16/19 02/16/19 02/16/19 14:41 14:41 14:41 WBC 9.31 RBC 5.23 Hgb 15.2 Hct 44.3 MCV 84.7 MCH 29.1 MCHC 34.3 RDW Std Deviation 49.8 H RDW Coeff of Perez 16.0 H Plt Count 103 L MPV 10.4 Immature Gran % (Auto) 0.2 Neut % (Auto) 67.2 Lymph % (Auto) 20.5 [place] % (Auto) 9.3 Eos % (Auto) 2.5 Baso % (Auto) 0.3 Immature Gran # (Auto) 0.02 Neut # (Auto) 6.25 Lymph # (Auto) 1.91 [place] # (Auto) 0.87 H Eos # (Auto) 0.23 Baso # (Auto) 0.03 PT 10.7 INR 1.0 Sodium 135 L Potassium 4.0 Chloride 103 Carbon Dioxide 26 Anion Gap 6.0 BUN 19 H Creatinine 1.18 Est Cr Clr Drug Dosing 59.5 Est GFR ( Amer) 69.1 Est GFR (Non-Af Amer) 59.6 BUN/Creatinine Ratio 16.0 Glucose 254 H Calcium 8.8 Phosphorus 3.0 Magnesium 1.9 Total Bilirubin 1.3 H AST 11 L ALT 17 Alkaline Phosphatase 55 Troponin I 0.030 Total Protein 7.3 Albumin 3.8 Globulin 3.5 Albumin/Globulin Ratio 1.1 Lipase 95
[2019-02-16] MEDS ORDERED: FUROSEMIDE 40 MG/4 ML VIAL IV ONE (16:26)
[2019-02-16] MEDS ORDERED: AMIODARONE / D5W 150 MG/100 ML BAG IV STA (16:33)
[2019-02-16] MEDS ORDERED: AMIODARONE / D5W 360 MG/200 ML BAG IV SCH ×3 (16:35→22:45)
--- NOTE | 2019-02-16 17:22 | History & Physical Report ---
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 Has not taken any of medications (including amiodarone or beta sumeet) since discharge home from hospital yesterday Pacer defibrillator interrogation with episodes of V. tach earlier today, with 4 terminated by ventricular pacing into by device discharge Dr. Cardoza has already evaluated patient in ED and started on IV amiodarone for amiodarone Monitor on telemetry (3) Ischemic cardiomyopathy: Echo performed on 02/11/19 with EF of 30-35% Given 20mg IV Lasix in ED due to evidence of early congestive failure on CXR Continue aspirin, pravastatin, losartan (4) Paroxysmal atrial fibrillation: Resume Toprol Continue Xarelto for anticoagulation (5) DM type 2 (diabetes mellitus, type 2): A1c 6.9 on 02/03/19 Hold outpatient metformin and Invokana NovoLog sliding scale per protocol (6) History of cardioembolic stroke: Continue anticoagulation with Xarelto (7) HTN (hypertension): Elevated to 169/107 after missed doses of home medication Gave Losartan 25mg now Resume home dose Losartan and Toprol, add PRN agent if needed (8) BHUPINDER (obstructive sleep apnea): Intolerant to cpap DVT Ppx: Xarelto Code status: FULL PCP: Desiree Dispo: Observation tele. Plan to return home once medically stable. Patient seen in collaboration with Dr. García. Please see addendum. 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 Patient was discharged from the hospital yesterday after pacemaker placement for NSVT. Did not chicken picker prescriptions from pharmacy, including amiodarone or beta-sumeet. Denies taking any home since discharge. Had coordinated a ride this afternoon to chicken picker prescriptions but defibrillator discharged around 1300. Was driven to the hospital and had an episode of lightheadedness in the parking lot, followed by a second defibrillator shock. Denies any visual changes, chest pain, palpitations or syncope. Was evaluated in the ED by Dr. Cardoza, who started patient on amiodarone drip. Pacer defibrillator interrogation with episodes of V. tach earlier today, with 4 terminated by ventricular pacing into by device discharge. Currently endorses mild headache. Denies any fever, chills, chest pain, palpitations, shortness of breath, nausea, vomiting, abdominal pain, dysuria, diarrhea or constipation. Has mild bilateral lower extremity edema. Allergies Allergy/AdvReac Type Severity Reaction Status Date / Time lisinopril AdvReac Mild COUGHING Verified 02/12/19 12:22 Home Medications Home Medications Medication Instructions Recorded Confirmed Type Invokana 300 mg PO QAM 02/10/19 02/16/19 History Lyrica 150 mg PO BID 02/10/19 02/16/19 History Xarelto 20 mg PO DAILY 02/10/19 02/16/19 History aspirin [Aspir-81] 81 mg PO DAILY 02/10/19 02/16/19 History cholecalciferol (vitamin D3) 2,000 unit PO DAILY 02/10/19 02/16/19 History [Vitamin D3] colchicine 1.2 mg PO .GOUT ATTACK 02/10/19 02/16/19 History metformin 1,000 mg PO DAILY 02/10/19 02/16/19 History nitroglycerin [Nitrostat] 0.4 mg SUBLINGUAL UD PRN 02/10/19 02/16/19 History nystatin 1 applic TOPICAL BID PRN 02/10/19 02/16/19 History pravastatin 10 mg PO DAILY 02/10/19 02/16/19 History tamsulosin [Flomax] 0.4 mg PO DAILY 02/10/19 02/16/19 History amiodarone 200 mg PO BID 30 Days #60 tab 02/15/19 02/16/19 Rx losartan 25 mg PO BID #0 tab 02/15/19 02/16/19 Rx Past Med/Surg History Medical History Ischemic cardiomyopathy (Chronic) "prior EF 35-40% in August 2008; improved EF 50-54% on 11/24/16 echo" Paroxysmal atrial fibrillation (Chronic) "postoperative" History of cardioembolic stroke (Chronic) Mitral regurgitation (Chronic) HTN (hypertension) (Chronic) Dyslipidemia (Chronic) DM type 2 (diabetes mellitus, type 2) (Chronic) BHUPINDER (obstructive sleep apnea) (Chronic) "not on CPAP" PFO (patent foramen ovale) (Chronic) Atrial septal aneurysm (Chronic) Gout (Chronic) 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) Chronic anticoagulation (Chronic) DJD of left shoulder (Resolved) Phlebitis/thrombophlebitis (Resolved) Surgical History History of left shoulder replacement (Chronic) 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) "2004 " History of right shoulder replacement (Chronic) "2009" H/O lithotripsy (Chronic) History of inguinal hernia repair (Chronic) "1954" AICD present, double chamber Family History Brother V-tach required AICD Social History Preferred Language: Latvian Communication Ability: Effective 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 Physical Exam Physical Exam: General Appearance: WD/WN, no apparent distress, resting comfortably Head: normocephalic, atraumatic Eyes: normal inspection, PERRL, EOMI ENT: hearing grossly normal, pharynx normal Neck: supple, no JVD, no adenopathy Respiratory/Chest: lungs clear to auscultation. No wheezes, rales or rhonci. No respiratory distress or accessory muscle use. + defibrillator device implanted in L chest with surround edema and ecchymosis. No drainage Cardiovascular: regular rate, rhythm, no murmur, normal peripheral pulses, 1+ BLE bilaterally Abdomen/GI: normal bowel sounds, soft, non-tender to palpation Extremities/Musculoskelatal: normal inspection, no calf tenderness, normal capillary refill, no pedal edema Neurologic/Psych: alert, normal mood/affect, oriented x 3 Skin: normal color, warm/dry Results & Data Vital Signs (Past 12 Hours) Vital Signs Temp Pulse Pulse Resp BP BP Pulse Ox 02/16/19 17:11 72 24 169/107 H 95 02/16/19 17:02 72 24 169/107 H 95 02/16/19 17:01 76 30 H 02/16/19 16:40 70 12 96 02/16/19 16:30 74 21 173/97 H 96 02/16/19 16:20 77 39 H 95 02/16/19 16:10 74 24 02/16/19 16:00 74 24 158/96 H 97 02/16/19 15:59 72 25 H 146/100 H 95 02/16/19 15:50 70 13 97 02/16/19 15:40 73 14 97 02/16/19 15:30 74 9 L 146/100 H 96 02/16/19 15:20 72 8 L 97 02/16/19 15:19 72 15 96 02/16/19 15:04 72 17 156/84 H 95 02/16/19 14:49 94 02/16/19 14:27 36.7 C 85 20 168/90 H 95 Laboratory Results Short CBC 02/16/19 Range/Units 14:41 WBC 9.31 (4.8-10.8) K/uL Hgb 15.2 (14.0-18.0) g/dL Hct 44.3 (42-52) % Plt Count 103 L (130-400) K/uL BMP 02/16/19 14:41 Sodium 135 L Potassium 4.0 Chloride 103 Carbon Dioxide 26 BUN 19 H Creatinine 1.18 Glucose 254 H Calcium 8.8 Cardiac Enzymes 02/16/19 Range/Units 14:41 Troponin I 0.030 (0-0.045) ng/ml Liver Function 02/16/19 Range/Units 14:41 Total Bilirubin 1.3 H (0.2-1) mg/dl AST 11 L (15-37) U/L ALT 17 (12-78) U/L Alkaline Phosphatase 55 (45-117) U/L Albumin 3.8 (3.4-5.0) gm/dl Diagnostic Findings CXR: IMPRESSION: Pulmonary vascular congestion versus early congestive failure. Supervising Physician Co-Signing Physician Notes Patient is a 78-year-old male with history of paroxysmal A. fib, coronary artery disease, ischemic cardiomyopathy, nonsustained V. tach and other problems who was recently discharged from [facility] after having pacer defibrillator placement presents for evaluation after having a defibrillator shock x2 today. Patient reports associated transient dizziness, occipital headache after the second shock. He admits to not taking his prescription medications since discharge due to lack of transportation to chicken picker his medications. Pacemaker interrogation suggestive of episodes of V. tach today. Please review HPI for complete details of presentation. Currently he denies any chest pain, dizziness, shortness of breath, nausea, abdominal pain, fever chills. Reports mild pain at the site of the pacemaker. Patient is started on amiodarone GGT while in ED. Appreciate cardiology input. He is noted to have elevated blood pressure while in ED. On exam patient is moderately built and nourished, no apparent distress, normocephalic atraumatic, lungs are clear to auscultation, S1-S2, grade 1 systolic heart murmur, trace pedal edema, chest+ pacemaker, mild erythema noted at the site, alert awake oriented, no focal neurological deficits. Patient will be monitored on telemetry unit. Continue amiodarone GGT for ventricular tachycardia. Restarted on metoprolol which was discontinued during prior discharge. On Xarelto for anticoagulation. Will resume losartan. Pain control. Patient received Lasix 40 mg for pulmonary vascular congestion, early congestive failure noted on chest x-ray. Monitor volume status. I personally reviewed the record. Patient is interviewed and examined at bedside. Patient's care is coordinated with Julissa Qiu PA-C. Please refer to the documentation above for details of patient's presentation and for discussion of other issues.
[2019-02-16] MEDS ORDERED: LOSARTAN POTASSIUM 25 MG TAB PO STA (17:23)
[2019-02-16] MEDS ORDERED: ACETAMINOPHEN 1,000 MG/100 ML VIAL IV PRN (17:58)
[2019-02-16] MEDS ORDERED: TRAMADOL HCL 50 MG TABLET PO PRN (17:58)
[2019-02-16] MEDS ORDERED: DEXTROSE 50% 50 ML SYRINGE IV PRN (17:58)
[2019-02-16] MEDS ORDERED: NYSTATIN CR 15 GM TUBE EXT PRN (17:58)
[2019-02-16] MEDS ORDERED: CARBOHYDRATES FOR HYPOGLYCEMIA PO PRN (17:58)
[2019-02-16] MEDS ORDERED: GLUCAGON FOR INJ 1 MG VIAL SQ PRN (17:58)
[2019-02-16] MEDS ORDERED: GLUCOSE 10 TABS/TUBE PO PRN (17:58)
[2019-02-16] MEDS ORDERED: GLUCOSE 40% GEL 15 GM TUBE PO PRN (17:58)
[2019-02-16] MEDS: INSULIN ASPART 100 UNITS/ML 3 ML PEN SC SCH ×2 (19:10→21:20)
[2019-02-16] MEDS: METOPROLOL SUCC 25MG EXT REL TAB PO SCH (20:39)
[2019-02-16] MEDS: LOSARTAN POTASSIUM 25 MG TAB PO SCH (20:40)
[2019-02-16] MEDS: AMIODARONE 200 MG TAB PO SCH (20:41)
[2019-02-16] MEDS: PREGABALIN 150 MG CAP PO SCH (20:43)
[2019-02-16] MEDS: AMIODARONE / D5W 360 MG/200 ML BAG IV SCH (22:48)
[2019-02-17 06:15] LABS: Basophils # (auto) 0.05 K/uL (0-0.2); Basophils % (auto) 0.6 %; Eosinophils # (auto) 0.43 K/uL (0-0.5); Hematocrit (blood only) 40.6 % (42-52); Hemoglobin 13.7 g/dL (14.0-18.0); Immature Granulocytes # (auto) 0.02 K/uL (0.00-0.02); Immature Granulocytes % (auto) 0.2 %; Lymphocytes % (auto) 28.2 %; Mean Corpuscular Hgb Conc 33.7 g/dL (32-36); Mean Platelet Volume 10.1 fL (7.4-10.4); Monocytes # (auto) 0.92 K/uL (0.11-0.59); Monocytes % (auto) 10.8 %; Neutrophils % (auto) 55.2 %; Platelet Count 100 K/uL (130-400); RDW Standard Deviation 50.8 fL (36.4-46.3); Red Blood Count 4.72 M/uL (4.7-6.1); White Blood Count 8.52 K/uL (4.8-10.8)
[2019-02-17 06:51] LABS: BUN Creatinine Ratio 20.2 (10-20); Calcium 8.8 mg/dl (8.5-10.1); Est GFR (African American) 79.5; Est GFR (Non-African American) 68.6; Potassium 3.7 mmol/L (3.5-5.1)
[2019-02-17] MEDS: AMIODARONE 200 MG TAB PO SCH (08:43)
[2019-02-17] MEDS: LOSARTAN POTASSIUM 25 MG TAB PO SCH (08:43)
[2019-02-17] MEDS: METOPROLOL SUCC 25MG EXT REL TAB PO SCH (08:44)
[2019-02-17] MEDS: INSULIN ASPART 100 UNITS/ML 3 ML PEN SC SCH ×2 (08:46→12:39)
[2019-02-17] MEDS: PREGABALIN 150 MG CAP PO SCH (08:48)
[2019-02-17] MEDS ORDERED: ASPIRIN 81 MG ECTAB PO SCH (09:00)
[2019-02-17] MEDS ORDERED: PRAVASTATIN SOD 10 MG TAB PO SCH (09:00)
[2019-02-17] MEDS ORDERED: RIVAROXABAN 20 MG TAB PO SCH (09:00)
[2019-02-17] MEDS ORDERED: TAMSULOSIN HCL 0.4 MG CAP PO SCH (09:00)
[2019-02-17] MEDS ORDERED: CHOLECALCIFEROL 1,000 UNITS TAB PO SCH (09:00)
[2019-02-17] MEDS: AMIODARONE / D5W 360 MG/200 ML BAG IV SCH (10:15)
[2019-02-17 11:29] VITALS: BP 118/72; PULSE 70; TEMP 98.2; O2SAT 92
--- NOTE | 2019-02-18 01:27 | Discharge Summary ---
DISCHARGE DIAGNOSES: 1. Sustained ventricular tachycardia. 2. Appropriate pacer defibrillator discharge. 3. Ischemic cardiomyopathy. 4. Hypertension. 5. Type 2 diabetes mellitus. OPERATIONS AND PROCEDURES: None. DISPOSITION: Discharged to home. CONDITION: Stable. MEDICATIONS ON DISCHARGE: Metoprolol succinate 12.5 mg p.o. b.i.d., aspirin 81 mg p.o. daily, Invokana 300 mg p.o. q.a.m., vitamin D3 2000 units every day, losartan 25 mg p.o. b.i.d., Lyrica 150 mg p.o. b.i.d., metformin 1000 mg p.o. daily, nitroglycerin 0.4 mg sublingual p.r.n., Nystatin topically p.r.n., pravastatin 10 mg p.o. daily, tamsulosin 0.4 mg p.o. every day, Xarelto 20 mg p.o. daily, amiodarone 200 mg t.i.d., colchicine discontinued. SPECIAL INSTRUCTIONS: No driving, no strenuous activity. Report any recurrence of tachyarrhythmias or defibrillator discharge. Follow up with Dr. Bray as scheduled, pacemaker clinic as scheduled. HISTORY OF PRESENT ILLNESS: The patient is a 78-year-old male who was admitted with evidence of ventricular tachycardia on event monitor and history of prior syncope. This was performed approximately 1 week ago with patient undergoing successful pacer defibrillator implantation and initiation of antiarrhythmic therapy. He was discharged to home only to return after appropriate defibrillator discharge. On presentation, he noted he had not been able to fill prescriptions post hospital discharge due to lack of mobility, loss of ride. He was referred for inpatient bolus of antiarrhythmic therapies and treatment. HOSPITAL COURSE: The patient was admitted to telemetry, given IV amiodarone infusion and bolus. Amiodarone was increased to 200 mg t.i.d. and beta sumeet resumed with metoprolol succinate 12.5 mg twice per day. Overall, the patient felt well and had no further arrhythmias in the hospital. At time of discharge, he was ambulatory without focal complaint. Prior pacer defibrillator site was ecchymotic with a small hematoma, but no discharge and improving at time of discharge. Followup has already been arranged.
== END 2019-02-17 14:14 | disposition home or self-care (01) ==
LOC: 2E 14:14 → ED 14:14 → 2E 17:11

== ENCOUNTER 2024-05-13 11:33 | Inpatient (IN) ==
--- OUTSIDE RECORDS SUMMARY | 2024-05-13 11:38 | External Medical Summary | Summary of Care ---
Author Name Unknown Organization [facility] Address [address] [place] [address] Phone [phone] Care Team Providers Care Bone Char Kiln Operator Name Role Phone Sandra Goldstein MD Primary Care Prov ider Reason for Visit * Reason Onset Date Comments [facility]: Maintenance 05/12/2024 Encounter Details Date Type Department Care Team (Late st Contact Info) Description 05/12/2024 2:15 PM EDT Scheduled Telephone [facility], [facility] [address] [place] [address] Coordinator, [facility] [address] [facility] [place] [address] Allergies Active Allergy Reactions Criticality Noted Date Comments Lisinopril Cough Low 12/21/2012 documented as of this encounter (statuses as of 05/12/2024) Medications Medication Sig Dispensed Refills Start Date End Date Status oxygen GAS 1LPM bled through bipap 1 Each 11/28/2019 Active Additional Information Patient not taking.Reported on 04/21/2023 Vitamin D3 25 MCG (1000 UT) Oral Tablet (Vitamin D3)Indications:Vitam in D deficiency Take by mouth 2 Tablets in the morning. 180 Tablet 1 11/21/2021 Active BiPAP every night at bedtime . Active Clotrimazole 1 % External Cream (Lotrimin) Apply topically to affected area 2 times a day . 60 g 2 03/16/2022 Active Nitroglycerin 0.4 MG Sublingual Tablet Sublingual (Nitrostat)Indicatio ns:History of myocardial infarction,S/P CABG x 3 place 1 tablet under the tongue every 5 minutes as needed for pain, chest. up to 3 doses in 15 minutes 25 Tablet 04/23/2023 Active Vitamin C 500 MG Oral Tablet Chewable Take 1 Tablet by mouth in the morning. Active Multi-Vitamins Oral Tablet Take 1 Tablet by mouth in the morning. Active Clopidogrel Bisulfate 75 MG Oral Tablet (pLAVix)Indications: PAD (peripheral artery disease) (HCC) Take 1 Tablet by mouth in the morning. 90 Tablet 3 10/19/2023 Active Tamsulosin HCl 0.4 MG Oral Capsule (Flomax)Indications: BPH without obstruction/lower urinary tract symptoms Take one capsule daily 90 Capsule 3 10/19/2023 Active Losartan Potassium 50 MG Oral Tablet (Cozaar)Indications: HTN, goal below 150/90 Take 1/2 Tablets by mouth in the morning and before bedtime. 90 Tablet 10/19/2023 Active Metoprolol Succinate ER 50 MG Oral Tablet Extended Release 24 Hour (toPROL XL)Indications:Parox ysmal atrial fibrillation (HCC),HTN, goal below 150/90,Chronic ischemic heart disease,VF (ventricular fibrillation) (HCC) Take 1 Tablet by mouth 2 times a day. 180 Tablet 3 10/19/2023 Active Amiodarone HCl 200 MG Oral Tablet (Cordarone)Indicatio ns:Paroxysmal atrial fibrillation (HCC) Take 1 Tablet by mouth in the morning. 100 Tablet 3 10/26/2023 Active Furosemide 40 MG Oral Tablet (Lasix)Indications:P aroxysmal atrial fibrillation (HCC),HTN, goal below 150/90,Ischemic cardiomyopathy Take 1 Tablet by mouth in the morning. 90 Tablet 03/23/2024 Active Potassium Chloride Valentina ER 10 MEQ Oral Tablet Extended ReleaseIndications:A cute decompensated heart failure (HCC) Take 1 Tablet by mouth in the morning. 90 Tablet 3 03/23/2024 Active Apixaban 2.5 MG Oral Tablet (Eliquis)Indications :Paroxysmal atrial fibrillation (HCC) Take 1 Tablet by mouth in the morning and 1 Tablet before bedtime. 180 Tablet 03/23/2024 Active Quercetin 500 MG Oral Capsule Take by mouth daily. Active L-Carnitine 500 MG Oral Capsule Take by mouth daily. Active [place] 3 1000 MG Oral Capsule Take by mouth daily. Active Levothyroxine Sodium 112 MCG Oral Tablet (Levoxyl)Indications :Hypothyroidism due to acquired atrophy of thyroid Take 1 Tablet by mouth daily first thing in the morning at least 30 min prior to breakfast or other meds 90 Tablet 3 04/11/2024 Active Nystatin 523398 UNIT/GM External CreamIndications:Can didal diaper dermatitis Apply topically to affected area 2 times a day for two weeks. 30 g 5 04/11/2024 Active Bicalutamide 50 MG Oral Tablet (Casodex) Take 1 Tablet by mouth in the morning. 30 Tablet 3 05/02/2024 Active Erythromycin 5 MG/GM Ophthalmic Ointment Apply .25 inch ribbon to right eye incision 4 times daily for 14 days then daily at bedtime. 3.5 g 3 05/03/2024 Active Ondansetron 8 MG Oral Tablet Disintegrating (Zofran) Place 1 Tablet on tongue every 8 hours as needed for Nausea. dissolve on tongue. 30 Tablet 05/08/2024 Active Prochlorperazine Maleate 10 MG Oral Tablet (Compazine) Take 1 Tablet by mouth every 6 hours as needed for Nausea. 12 Tablet 1 05/10/2024 Active Hospital, Clinic, or Other Facility Administered Medication Ordered Dose Route Frequency Start Date End Date Status Nystatin (Nystop) powderIndications:Tinea cruris TOP BID (.AM/PM) 06/10/2021 Active documented as of this encounter (statuses as of 05/12/2024) Active Problems Problem Noted Date Diagnosed Date Elevated PSA 10/21/2023 Hypothyroidism due to acquired atrophy of thyroi d 10/19/2023 Yeast dermatitis 04/21/2023 Type 2 diabetes mellitus wit h stage 3b chronic kidney disease, without long-term current use of insulin 09/15/2022 Last Assessment & Plan: Diet controlled Most recent A1c 5.5% Scrotal swelling 03/16/2022 Tinea cruris 03/16/2022 Systolic congestive heart failure 12/02/2021 Type 2 diabetes mellitus wit h diabetic peripheral angiopathy without gangrene 12/02/2021 PAD (peripheral artery disease) 12/02/2021 Last Assessment & Plan: Following with vascular surgery Hypertensive heart disease w ith systolic heart failure and stage 3b chronic kidney disease 11/19/2021 Last Assessment & Plan: "RED FLAG" HF Symptoms: Leg Swelling Abdominal Bloating Increased dyspnea on exertion Medication Regimen: Beta Jhoan Therapy: Metoprolol Succinate (ER) HAYDEN Inhibitor/ARB Therapy: Losartan Diuretic therapy: Lasix SGLT2 Inhibitor: No Current SGLT2 (Describe in the Comments) Remote Patient Monitoring Vendor: No Connected RPM Device(s): Traditional Scale Self - Management Plan Double dose of Furosemide for 3 days Exacerbation Plan Anticipated IV Lasix dose: 100 mg BMP Additional Comments: Ongoing leg swelling, recommended elevating legs more throughout the day, currently sits with legs down all day Chronic kidney disease, stage 3b 09/01/2021 Overview: Per CKD protocol Type 2 diabetes mellitus wit h diabetic neuropathy, unspecified 12/04/2020 Urinary urgency 05/28/2020 Dermatitis 05/28/2020 Hypothyroidism, unspecified 11/27/2019 Nocturnal hypoxemia 07/26/2019 Ischemic cardiomyopathy 05/26/2019 Atrial septal aneurysm 05/26/2019 CSA (central sleep apnea) 05/08/2019 Ventricular tachycardia 02/22/2019 AICD (automatic cardioverter/defibrillator) pres ent 02/22/2019 History of colon polyps 02/16/2019 Vertebral artery stenosis, left 02/03/2019 AK (actinic keratosis) 06/29/2016 Overview: Efudex (face 12/2018) Dysarthria 11/05/2015 History of cardioembolic cerebrovascular acciden t (CVA) 11/05/2015 Paroxysmal atrial fibrillation 11/05/2015 S/P CABG x 3 10/29/2015 BHUPINDER (obstructive sleep apnea) 06/20/2013 Overview: AHI 34 on baseline PSG 05/28/13 DME: AHP 07/24/13 auto CPAP to set pressure of 13 cm Last Assessment & Plan: Declines use of CPAP, has not used for >2 years Dyslipidemia, goal LDL below 70 08/05/2009 Overview: Per Lipid Taxonomy. Type 2 diabetes mellitus wit h hemoglobin A1c goal of less than 8.0% 06/20/2009 Overview: Per Diabetes Taxonomy. ICD-10 update of inactive term History of myocardial infarction HTN, goal below 150/90 Gout Coronary artery disease Vitamin D deficiency documented as of this encounter (statuses as of 05/12/2024) Resolved Problems Problem Noted Date Diagnosed Date Resolved Date Type 2 diabetes mellitus wit h foot ulcer (CODE) 12/26/2021 09/23/2022 Hypertension associated with stage 3b chronic 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 diabetes mellitus 09/01/2021 09/15/2022 Overview: Per CKD protocol Chronic kidney disease, stage 3a 02/04/2021 09/04/2021 Overview: Per CKD protocol Type 2 diabetes mellitus wit h stage 3a chronic kidney disease and hypertension 12/31/2020 09/04/2021 Overview: Per CKD protocol Bilateral foot pain 05/28/2020 09/15/19 23 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 11/27/2019 0 Systolic CHF 05/26/2019 05/22/2022 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 diabetes mellitus 05/15/2019 01/02/2021 Overview: Per CKD protocol Type 2 diabetes mellitus wit h stage 3 chronic kidney disease, without long-term current use of insulin 02/03/2019 05/28/2020 Kidney disease, chronic, sta ge III (GFR 30-59 ml/min) 07/04/2018 06/07/2019 Overview: Per CKD protocol #1 Arm DVT (deep venous thrombo embolism), acute, left 11/30/2017 02/03/2019 Swelling of lower extremity 11/12/2015 12/13/2015 Postoperative atrial fibrillation 10/29/2015 06/04/2017 Exertional angina 09/10/2015 11/05/2015 Coronary artery disease with unstable angina pectoris 09/10/2015 11/05/2015 Coagulation profile, abnormal 09/10/2015 09/10/2015 Noncompliance 07/07/2012 08/13/2015 SCREEN MAL NEOP-RECTUM 04/01/200112/12 Type 2 diabetes mellitus wit h hemoglobin A1c goal of less than 7.0% 06/20/2009 Overview: Per Diabetes Taxonomy. ICD-10 update of inactive term Mixed dyslipidemia Overview: Per Lipid Taxonomy. Colon polyp 02/21/2019 documented as of this encounter (statuses as of 05/12/2024) Immunizations Name Administration Dates Next Due COVID-19 mRNA, LNP-s, No Pre serve, 2-Dose Series (Limeade) 06/17/2021,11/14/2020,10/24/2020 Covid-19, Mrna, Lnp-s, Pf, B ivalent, 30 Mcg, IM, 12 yrs and above (Pfizer) 10/01/2022 Pneumococcal Conjugate Vacc, 13 Valent (Prevnar) 08/13/2015 Pneumococcal Polysaccharide PPV23 (Pneumovax) 07/07/2012 Seasonal Influenza, PF, 6 M & above, IM , (FluLaval or Fluzone) 05/28/2020,05/25/2019,05/05/2018,06/04 Seasonal Influenza, Quadriva lent Hd (Fluzone Hd) 04/27/2023,06/05/2021 Seasonal Influenza, Quadriva lent, No Preserve, IM 08/18/2016,08/13/2015 Seasonal Influenza, Trivalen t, (IIV3), with Preserv, (Fluzone) 05/25/2014,06/13/2013,07/07/2012 Seasonal Influenza, Trivalen t, Adjuvanted, 65+ YRS, PF, (Fluad) 06/27/2022 TDAP (age 10 and older)(Boostrix) 03/27/2023, Varicella Zoster Vaccine (Adult) 07/28/2014 Zoster Vaccine Recombinant (Shingrix) 12/02/2021 ,07/24/2021,06/06/2020 documented as of this encounter Social History Tobacco Use Types Packs/Day Years Used Date Smoking Tobacco: Never Smokeless Tobacco: Never Alcohol Use Standard Drinks/Week Comments No 0 (1 standard drink = 0.6 oz pur e alcohol) PHQ-2 Answer Date Recorded PHQ Adult Total Score 1 10/21/2023 Hunger Vital Sign Answer Date Recorded Within the past 12 months, y ou worried that your food would run out before you got the money to buy more. Never true 10/01/19 24 Within the past 12 months, t he food you bought just didn't last and you didn't have money to get more. Never true 10/01/2023 Childcare Answer Date Recorded Do you feel overwhelmed with taking care of a child, family member or friend? No 10/01/2023 Does your family need help f inding childcare? (Household - for ages 0-17 years) Not on file 10/01/2023 Clothing Answer Date Recorded Have you been unable to get clothing when it was really needed? No 10/01/2023 Is your family able to get c lothes or diapers when needed? (Household - for ages 0-17 years) Not on file 10/01/2023 Personal Safety Answer Date Recorded Do you feel unsafe or have concerns for your saf ety? No 10/01/2023 Do you have concerns for you r family's safety? (Household - for ages 0-17 years) Not on file 10/01/2023 Utilities Answer Date Recorded Do you have trouble paying y our heating, water, or electric bill? No 10/01/2023 Is your family able to pay t he heat, water, or electric bill? (Household - for ages 0-17 years) Not on file 10/01/2023 Does your family have access to good internet? (Household - for ages 0-17 years) Not on file 10/01/2023 Employment Status Answer Date Recorded Are you unemployed or without regular income? No 10/01/2023 Does the household have a re lar source of income? (Household - for ages 0-17 years) Not on file 10/01/2023 Social Connections Answer Date Recorded How often do you feel lonely or isolated from th ose around you? Never 10/01/2023 Financial Resource Strain Answer Date R ecorded Do you have any trouble payi ng for your medications, or do you think you might in the future? No 10/01/2023 Does your family have troubl e paying for medicine? (Household - for ages 0-17 years) Not on file 10/01/2023 Transportation Needs Answer Date Record ed READ ONLY Do you have troubl e getting a ride to medical visits or work? Never True 10/01/2023 Does your family have a hard time getting a ride to doctors visits? (Household - for ages 0-17 years) Not on file 10/01/2023 Has lack of transportation k ept you from medical appointments, meetings, work, or from getting things needed for daily living? Check all that apply. (Adult - for ages 18 years and over) Not on file 10/01/2023 Do you (or your family) have trouble finding or paying for a ride (transportation)? (Household - for ages 0-17 years) Not on file 10/01/2023 Housing Stability Answer Date Recorded Do you currently live in a s helter or have no steady place to sleep at night? No 10/01/2023 READ ONLY Do you think you a re at risk of becoming homeless? No 10/01/2023 Does your family worry about paying for your home or becoming homeless? (Household - for ages 0-17 years) Not on file 0 10/01/2023 Are you homeless or worried that you might be in the future? (Adult - for ages 18 years and over) Not on file Are you (or your family) rosa eless or worried that you might be in the future? (Household - for ages 0-17 years) Not on file Food Insecurity Answer Date Recorded Do you need food for this week? No 10/01/2023 Are you able to get enough f ood for your family? (Household - for ages 0-17 years) Not on file 10/01/2023 Does your family need food t his week? (Household - for ages 0-17 years) Not on file 10/01/2023 Do you always have enough fo od for your family? (Household - for ages 0-17 years) Not on file 10/01/2023 Sex and Gender Information Value Date Recorded Sex Assigned at Male 04/21/2023 10:23 AM EDT Gender Identity Male 04/21/2023 10:23 AM EDT Sexual Orientation Straight 04/21/2023 10 :23 AM EDT Job Start Date Occupation Industry Not on file Not on file Not on file documented as of this encounter Functional Status Functional Status Response Date of Assess ment Are you deaf or do you have serious difficulty h earing? No 11/05/2015 Are you blind or do you have serious difficulty seeing, even when wearing glasses? No 11/05/2015 Do you have serious difficul ty walking or climbing stairs? (5 years old or older) No 11/05/2015 Do you have difficulty dress ing or bathing? (5 years old or older) No 11/05/2015 Because of a physical, menta l, or emotional condition, do you have difficulty doing errands alone such as visiting a doctor s office or shopping? (15 years old or older) No 11/05/19 16 Cognitive Status Response Date of Assessm ent Because of a physical, menta l, or emotional condition, do you have serious difficulty concentrating, remembering, or making decisions? (5 years old or older) No 11/05/2015 documented as of this encounter Miscellaneous Notes * Telephone Encounter - Conrad Marquez MD - 05/12/2024 10:55 AM EDT Compazine q6 prn Push clears (prefer pedialyte) Brat diet once no vomiting x 12 hr Follow-up phone call tomorrow Conrad Marquez MD, [facility], [facility], [facility] Remote [facility] Command ([facility]) [facility] Available on [employer] * Telephone Encounter - Kalyn Sarmiento RN - 05/12/2024 9:51 AM EDT Images from the original note were not included. [facility] Telephonic Nurse Follow-Up Call [facility] Subprogram: No data was found Follow Up Call Type: 24 hour follow up Acute issue requiring follow-up call: Other: Nausea, vomiting, IV hydration Objective: 05/11/2024 12:15 PM 05/10/2024 10:11 AM 05/08/2024 12:21 PM 04/28/2024 9:02 AM 03/29/2024 1:30 PM VITALS ACROSS ENCOUNTERS BP 108/70 118/68 120/70 92/62 118/72 Pulse 72 72 72 70 72 Remote Patient Monitoring: NONE Oxygen Needs: NO CHANGE from baseline supplemental oxygen needs 1L with bipap DME Needs: NO DME needs identified Medications: New medication(s) added: IVF 05/08 and 05/11 Compazine Subjective: Condition Status: No change in symptoms Current Concerns: Pt continues to have nausea, pt vomited x1 today. Took compazine at 7 am with some relief. Pt reports feels a bit better. States better than yesterday. But reports that the vomiting comes onsuddenly. Pt denies abd pain, unable to keep any food down but is tolerating fluids. Drank water, gingerale and gatorade. Reports minimal urine output today. Voided x1 small amount Denies SOB, headache, lightheadedness or dizziness. No dry mouth or lips. Denies skin tenting. Last BM 1 week ago- abd xray on wednesday negative for obstruction No vital signs available Pt to see his loan approver today Disposition: Routed to [facility] and/or [facility] Care Team for further advice and Weekend call scheduled Future Visits Scheduled: Future Appointments-next 60 days Date/Time Provider Specialty Dept Phone 05/12/2024 2:15 PM Coordinator, [facility] [phone] 05/12/2024 2:30 PM (Arrive by 2:15 PM) Luiz Pina PA-C Cardiology [phone] 05/13/2024 9:00 AM Region, Nurse [facility] [phone] 05/15/2024 8:30 AM Kelly Rosa RN [facility] [phone] 05/16/2024 9:45 AM (Arrive by 9:30 AM) [facility] PET INJECTION Radiology [phone] 05/16/2024 11:00 AM PET MOBILE [facility] Radiology [phone] 05/17/2024 4:00 PM Kelly Rosa RN [facility] [phone] 05/22/2024 9:50 AM Marshall Paez, Ophthalmology [phone] 05/22/2024 3:30 PM Regan Alejandro MD Urology Arrive at: Patient's Home [phone] 06/15/2024 5:30 PM Kelly Rosa, JULIA [facility] [phone] 06/24/2024 9:00 AM (Arrive by 8:45 AM) Sandra Goldstein MD Family Medicine [phone] 09/12/2024 10:30 AM (Arrive by 10:15 AM) Luiz Pina PA-C Cardiology [phone] 10/24/2024 10:30 AM Nurse [facility] Ancillary [phone] Kalyn Sarmiento RN documented in this encounter Plan of Treatment Upcoming Encounters Date Type Department Care Team (Late st Contact Info) Description 05/12/2024 2:30 PM EDT Office Visit Cardiology, [facility] [address] [place] [address] Luiz Pina PA-C [address] [place] [address] 05/13/2024 9:00 AM EDT Scheduled Telephone [facility], [facility] [address] [place] [address] [facility] [address] [place] [address] 05/15/2024 8:30 AM EDT [facility] Visit [facility] [place], [facility] [address] [place] [address] Kelly Rosa, JULIA [address] [place] [address] 05/16/2024 9:45 AM EDT Imaging Radiology [facility] [address] [place] [address] 05/17/2024 4:00 PM EDT Home Visit [facility], [address] [place] [address] Kelly Rosa RN [address] [facility] [place] [address] 05/22/2024 9:50 AM EDT Office Visit Ophthalmology, [facility] [address] [place] [address] Marshall Paez, DO [address] [place] [address] 05/22/2024 3:30 PM EDT Telemedicine Urology, [facility] [address] [place] [address] Regan Alejandro MD [address] [place] [address] 06/15/2024 5:30 PM EDT Home Visit [facility], [facility] [address] [place] [address] Kelly Rosa RN [address] [facility] [place] [address] 06/24/2024 9:00 AM EDT Office Visit Family Practice [facility] [address] [place] [address] Sandra Goldstein MD [address] [place] [address] [place] [address] 09/12/2024 10:30 AM EST Office Visit Cardiology [address] [place] [address] Luiz Pina PA-Earl [address] [place] [address] 10/24/2024 10:30 AM EST Nurse Only Ancillary [address] [place] [address] [place], Nurse [address] [place] [address] Health Maintenance Due Date Last Done Comments Diabetic Foot Exam 04/21/2024 04/21/2023, 1 , 05/28/2020, Additional history exists COVID-19 Vaccine ( season) 2024 10/01/2022, 06/17/2021, 11/14/2020, Additional history exists Influenza Vaccine (FLU shot) (#1) 2024 04/27/2023, 06/27/2022, 06/05/2021, Additional history exists CKD PHOS USE SMARTSET 97344 05/29/202402/2023, 10/01/2022, 12/04/2020, Additional history exists HbA1c 09/07/2024 03/07/2024, 10/21, 05/29/2023, Additional history exists Adult Wellness Visit 10/20/2024 10/21/2023 Depression Screening 10/20/2024 10/21/2023 B-12 11/07/2024 11/08/2023, 04/2023, 12/04/2020, Additional history exists GFR 11/07/2024 05/10/2024, 02/20, 11/08/2023, Additional history exists Albumin/Creatinine Ratio 11/08/202411/08/2 024, 10/08/2022, 11/30/2017, Additional history exists Diabetic Eye Exam 01/24/2025 01/25/2024, , 06/15/2023, Additional history exists TSH 03/07/2025 03/07/2024, 04/2023, 05/29/2023, Additional history exists CKD HGB USE SMARTSET 85818 05/10/202505/10, 05/10/2024, 05/29/2023, Additional history exists DTap/Tdap Vaccines (3 - Td or Tdap) 03/27/2033 03/27/2023, 03/08/2013 Pneumococcal Vaccine: 65+ Years Completed 08/13/2015, 07/07/2012 Zoster Vaccines Completed 12/02/2021, 09/2020, 06/06/2020, Additional history exists DXA Scan Discontinued HPV (Gardasil) Vaccine Aged Out No lo nger eligible based on patient's age to complete this topic Hepatitis B Vaccine Aged Out No longe r eligible based on patient's age to complete this topic MENINGOCOCCAL (MENACTRA/MENVEO) Aged Out No longer eligible based on patient's age to complete this topic documented as of this encounter Medical Devices Implanted Type Area Inspecting Supervisor Device Identifier Shelf Expiration Date Model / Serial / Lot Sut Steel 6 [id number] - [id number] Implanted:Qty: 4 on 10/21/2015 by Riki Chan MD at OR [facility] N/A: Chest JNJ : [employer] 07/22/2020 [id number] / / [id number] Marker Coronary Amgm-Sd - [id number] Implanted:Qty: 1 on 10/21/2015 by Riki Chan MD at OR [facility] N/A: Chest [employer] 08/22/2018 AMGM-SD / / [id number] Marker Coronary Amgm-Sd - [id number] Implanted:Qty: 1 on 10/21/2015 by Riki Chan MD at OR [facility] Chest [employer] 06/22/2018 AMGM-SD / / [id number] documented as of this encounter Advance Directives * No Code (Latest Code Status on File) Date Activated Date Inactivated Comments 11/05/2015 1:17 AM 11/07/2015 7:12 PM This order r eflects the patients wishes and were consensually agreed upon. Question Answer Comments Discussion of Advance Directives occurred with: Patient Does the patient have a Living Will? No Does the patient have Health Care Power of Attor vanessa? No * Full Code Date Activated Date Inactivated Comments 10/21/2015 11:12 AM 10/26/2015 4:45 PM This order r eflects the patients wishes and were consensually agreed upon. Care Teams Bone Char Kiln Operator Relationship Specialty Start Date End Date Sandra Goldstein MD [address] [place] [address] [place] [id number] PCP - General Family Medicine 02/22/19 documented as of this encounter
--- OUTSIDE RECORDS SUMMARY | 2024-05-13 11:38 | External Medical Summary | Summary of Care ---
Author Name Unknown Organization [facility] Address [address] [facility] [place] [address] Phone [phone] Care Team Providers Care Small Parts Assembler Name Role Phone Sandra Goldstein MD Primary Care Prov ider Reason for Visit * Reason Onset Date Comments [facility]: Maintenance 05/12/2024 Encounter Details Date Type Department Care Team (Late st Contact Info) Description 05/12/2024 2:15 PM EDT Scheduled Telephone [facility], [facility] [address] [facility] [place] [address] Coordinator, [facility] [address] [facility] [place] [address] Allergies Active Allergy Reactions Criticality Noted Date [...] Oral Capsule Take by mouth daily. Active [place] 3 1000 MG Oral Capsule Take by mouth daily. 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 [facility] Telephonic Nurse Follow-Up Call [facility] Subprogram: No data was found Follow Up [...] vital signs available Pt to see his paunch trimmer today Disposition: Routed to [facility] and/or [facility] Care Team for further advice and Weekend call scheduled Future Visits Scheduled: Future Appointments-next 60 days Date/Time Provider Specialty Dept Phone 05/12/2024 2:15 PM Coordinator, Shea Jesus [facility] [phone] 05/12/2024 2:30 PM (Arrive by 2:15 PM) Luiz Pina PA-C Cardiology [phone] 05/13/2024 9:00 AM [facility], Nurse [facility] [phone] 05/15/2024 8:30 AM Kelly Rosa RN [facility] [phone] 05/16/2024 9:45 AM (Arrive by 9:30 AM) [facility] PET INJECTION Radiology [phone] 05/16/2024 11:00 AM PET MOBILE [facility] Radiology [phone] 05/17/2024 4:00 PM Kelly Rosa RN [facility] [phone] 05/22/2024 9:50 AM Marshall Paez, DO Ophthalmology [phone] 05/22/2024 3:30 PM Regan Alejandro MD Urology Arrive at: Patient's Home [phone] 06/15/2024 5:30 PM Kelly Rosa RN [facility] [phone] 06/24/2024 9:00 AM (Arrive by 8:45 AM) Sandra Goldstein MD Family Medicine [phone] 09/12/2024 10:30 AM (Arrive by 10:15 AM) Luiz Pina PA-C Cardiology [phone] 10/24/2024 10:30 AM Juliann Nurse [facility] Ancillary [phone] Kalyn Sarmiento, RN documented in this encounter Plan of Treatment Upcoming Encounters Date Type Department Care Team (Late st Contact Info) Description 05/12/2024 2:30 PM EDT Office Visit Cardiology, [facility] [address] [place] [address] Luiz Pina PA-C [address] [place] [address] 05/13/2024 9:00 AM EDT Scheduled Telephone [facility], [facility] [address] [place] [address] [facility] Nurse [facility] [address] [place] [address] 05/15/2024 8:30 AM EDT Home Visit [facility], [facility] [address] [place] [address] Kelly Rosa, JULIA [address] [place] [address] 05/16/2024 9:45 AM EDT Imaging Radiology [facility] [address] [place] [address] 05/17/2024 4:00 PM EDT Home Visit [facility], [facility] [address] [place] [address] Kelly Rosa, JULIA [address] [place] [address] 05/22/2024 9:50 AM EDT Office Visit Ophthalmology, [facility] [address] [facility] [place] [address] Marshall Paez, DO [address] [place] [address] 05/22/2024 3:30 PM EDT Telemedicine Urology, [facility] [address] [facility] [place] [address] Regan Alejandro MD [address] [place] [address] 06/15/2024 5:30 PM EDT Home Visit [facility], [facility] [address] [facility] [place] [address] Kelly Rosa RN [address] [facility] [place] [address] 06/24/2024 9:00 AM EDT Office Visit Family Practice [facility] [address] [facility] [place] [address] Sandra Goldstein MD [address] [place] [address] [place] [address] 09/12/2024 10:30 AM EST Office Visit Cardiology [address] [place] [address] Luiz Pina PA-C [address] [facility] [place] [address] 10/24/2024 10:30 AM EST Nurse Only Ancillary [address] [place] [address] [place], Nurse Annual [facility]ness [address] [place] [address] [place] [address] Health Maintenance Due Date Last Done Comments Diabetic Foot Exam 04/21/2024 04/21/2023, 1 , 05/28/2020, Additional history exists COVID-19 Vaccine ( season) 2024 10/01/2022, 06/17/2021, 11/14/2020, Additional history exists Influenza Vaccine (FLU shot) (#1) 2024 04/27/2023, 06/27/2022, 06/05/2021, Additional history exists CKD PHOS USE SMARTSET 97886 05/29/2024 100 02/2023, 10/01/2022, 12/04/2020, Additional history exists HbA1c 09/07/2024 03/07/2024, 10/21, 05/29/2023, Additional history exists Adult Wellness Visit 10/20/2024 10/21/2023 Depression Screening 10/20/2024 10/21/2023 B-12 11/07/2024 11/08/2023, 020 04/2023, 12/04/2020, Additional history exists GFR 11/07/2024 05/10/2024, 02/20, 11/08/2023, Additional history exists Albumin/Creatinine Ratio 11/08/2024 024, 10/08/2022, 11/30/2017, Additional history exists Diabetic Eye Exam 01/24/2025 01/25/2024, , 06/15/2023, Additional history exists TSH 03/07/2025 03/07/2024, 1104/2023, 05/29/2023, Additional history exists CKD HGB USE SMARTSET 15268 05/10/202505/10, 05/10/2024, 05/29/2023, Additional history exists DTap/Tdap Vaccines (3 - Td or Tdap) 03/27/2033 03/27/2023, 03/08/2013 Pneumococcal Vaccine: 65+ Years Completed 08/13/2015, 07/07/2012 Zoster Vaccines Completed 12/02/2021, 12/0 09/2020, 06/06/2020, Additional history exists DXA Scan [...] this encounter Medical Devices Implanted Type Area Steam Service Inspector Device Identifier Shelf Expiration Date Model / Serial / Lot Sut Steel 6 M654g - [id number] Implanted:Qty: 4 on 10/21/2015 by Riki Chan MD at OR [facility] N/A: Chest JNJ : [employer] 07/22/2020 M654G / / [id number] Marker Coronary Amgm-Sd - [id number] Implanted:Qty: 1 on 10/21/2015 by Riki Chan MD at OR [facility] N/A: Chest [employer] 08/22/2018 AMGM-SD / / [id number] Marker Coronary Amgm-Sd - [id number] Implanted:Qty: 1 on 10/21/2015 by Riki Chan MD at OR [facility] Chest [employer] 06/22/2018 AMGM-SD / / [id number] documented as of this encounter Advance Directives [...] and were consensually agreed upon. Care Teams Small Parts Assembler Relationship Specialty Start Date End Date Sandra Goldstein MD [address] [place] [address] [place] [address] PCP - General Family Medicine 02/22/19 documented as of this encounter
--- OUTSIDE RECORDS SUMMARY | 2024-05-13 11:39 | External Medical Summary | Summary of Care ---
Author Name Unknown Organization [facility] Address [address] [facility] [address] Phone [phone] Care Team Providers Care Control Panel Builder Name Role Phone Sandra Goldstein MD Primary Care Prov ider Encounter Details Date Type Department Care Team (Late st Contact Info) Description 05/10/2024 Orders Only [facility], [facility] [address] [facility] [place] [address] Willie Moctezuma MD [address] [facility] [place] [address] Generalized abdominal pain* Allergies Active Allergy Reactions Criticality Noted Date Comments Lisinopril Cough Low 12/21/2012 documented as of this encounter (statuses as of 05/10/2024) Medications Medication Sig Dispensed Refills Start Date [...] the morning. 90 Tablet 3 10/19/2023 Active Additional Information Patient not taking.Reported on 04/07/2024 Tamsulosin HCl 0.4 MG Oral Capsule (Flomax)Indications: BPH without obstruction/lower urinary tract symptoms Take one capsule daily 90 Capsule 3 10/19/2023 Active Losartan Potassium 50 MG Oral Tablet (Cozaar)Indications: HTN, goal below 150/90 Take 1/2 Tablets by mouth in the morning and before bedtime. 90 Tablet 3 10/19/2023 Active Metoprolol Succinate ER 50 MG [...] the morning. 90 Tablet 3 03/23/2024 Active Potassium Chloride Valentina ER 10 MEQ Oral Tablet Extended ReleaseIndications:A cute decompensated heart failure (HCC) Take 1 Tablet by mouth in the morning. 90 Tablet 3 03/23/2024 Active Apixaban 2.5 MG Oral Tablet (Eliquis)Indications :Paroxysmal atrial fibrillation (HCC) Take 1 Tablet by mouth in the morning and 1 Tablet before bedtime. 180 Tablet 3 03/23/2024 Active Quercetin 500 MG Oral Capsule Take by mouth daily. Active L-Carnitine 500 MG Oral Capsule Take by mouth daily. Active [place] 3 1000 MG Oral Capsule Take by mouth daily. Active Levothyroxine Sodium 112 MCG Oral Tablet (Levoxyl)Indications :Hypothyroidism due to acquired atrophy of thyroid Take 1 Tablet by mouth daily first thing in the morning at least 30 min prior to breakfast or other meds 90 Tablet 3 04/11/2024 Active Nystatin 508232 UNIT/GM External CreamIndications:Can didal diaper dermatitis Apply topically to affected area 2 times a day for two weeks. 30 g 5 04/11/2024 Active Ciprofloxacin HCl 500 MG Oral Tablet (Cipro) Take 1 Tablet by mouth in the morning and 1 Tablet before bedtime. Start day prior to biopsy. 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 (Household - for ages [...] as of this encounter Miscellaneous Notes * Addendum Note - Willie Moctezuma MD - 05/10/2024 10:42 AM EDTAddended by: WILLIE MOCTEZUMA on: 05/10/2024 10:42 AM Modules accepted: Orders documented in this encounter Plan of Treatment Upcoming Encounters Date Type Department Care Team (Late st Contact Info) Description 05/10/2024 11:30 AM EDT Home Visit [facility] [address] [place] [address] Kelly Rosa RN [address] [place] [address] Arrived 05/11/2024 9:15 AM EDT Scheduled Telephone [facility], [facility] [address] [facility] [place] [address] Coordinator, [facility] [address] [place] [address] 05/12/2024 2:30 PM EDT Office Visit Cardiology, [facility] [address] [facility] [place] [address] Luiz Pina PA-C [address] [facility] [place] [address] 05/16/2024 9:45 AM EDT Imaging [facility] [address] [facility] [place] [address] 05/22/2024 9:50 AM EDT Office Visit Ophthalmology, [facility] [address] [facility] [place] [address] Marshall Paez, DO [address] [place] [address] 05/22/2024 3:30 PM EDT Telemedicine Urology, [facility] [address] [facility] [place] [address] Regan Alejandro MD [address] [place] [address] 06/15/2024 5:30 PM EDT Home Visit [facility], [facility] [address] [facility] [place] [address] Kelly Rosa, JULIA [address] [place] [address] 06/24/2024 9:00 AM EDT Office Visit Family Practice [facility] [address] [facility] [place] [address] Sandra Goldstein MD [address] [place] [address] [place] [address] 09/12/2024 10:30 AM EST Office Visit Cardiology [address] [place] [address] Luiz Pina PA-C [address] [place] [address] 10/24/2024 10:30 AM EST Nurse Only Ancillary [address] [place] [address] [place], Nurse Annual Wellness [address] [place] [address] [place] [address] Scheduled Orders Name Type Priority Associated Diagnoses Orde r Schedule XR ABDOMEN 1 VIEW Medical Imaging STAT Generalized abdominal pain Ordered: 05/10/2024 Health Maintenance Due Date Last Done Comments Diabetic Foot Exam 04/21/2024 04/21/2023, 1 , 05/28/2020, Additional history exists COVID-19 Vaccine ( season) 2024 10/01/2022, 06/17/2021, 11/14/2020, Additional history exists Influenza Vaccine (FLU shot) (#1) 2024 04/27/2023, 06/27/2022, 06/05/2021, Additional history exists CKD HGB USE SMARTSET 94271 05/29/202405/29, 03/19/2023, 03/19/2023, Additional history exists CKD PHOS USE SMARTSET 27817 05/29/202402/2023, 10/01/2022, 12/04/2020, Additional history exists GFR 09/07/2024 03/07/2024, 10/21, 05/29/2023, Additional history exists HbA1c 09/07/2024 03/07/2024, 10/21, 05/29/2023, Additional history exists Adult Wellness Visit 10/20/2024 10/21/2023 Depression Screening 10/20/2024 10/21/2023 B-12 11/07/2024 11/08/2023, 04/2023, 12/04/2020, Additional history exists Albumin/Creatinine Ratio 11/08/20242 024, 10/08/2022, 11/30/2017, Additional history exists Diabetic Eye Exam 01/24/2025 01/25/2024, , 06/15/2023, Additional history exists TSH 03/07/2025 03/07/2024, 0 04/2023, 05/29/2023, Additional history exists DTap/Tdap Vaccines (3 [...] this encounter Medical Devices Implanted Type Area Power Plant Operators Supervisor Device Identifier Shelf Expiration Date Model / Serial / Lot Sut Steel 6 M654g - [id number] Implanted:Qty: 4 on 10/21/2015 by Riki Chan MD at OR [facility] [place] N/A: Chest JNJ : [employer] 07/22/2020 M654G / / [id number] Marker Coronary Amgm-Sd - [id number] Implanted:Qty: 1 on 10/21/2015 by Riki Chan MD at OR [facility] N/A: Chest [employer] 08/22/2018 AMGM-SD / / [id number] Marker Coronary Amgm-Sd - [id number] Implanted:Qty: 1 on 10/21/2015 by Riki Chan MD at OR [facility] Chest [employer] 06/22/2018 AMGM-SD / / [id number] documented as of this encounter Visit Diagnoses Diagnosis Generalized abdominal pain- Primary Abdominal pain, generalized documented in this encounter Advance Directives * No Code [...] and were consensually agreed upon. Care Teams Control Panel Builder Relationship Specialty Start Date End Date Sandra Goldstein MD [address] [place] [address] [place] [address] PCP - General Family Medicine 02/22/19 documented as of this encounter
--- OUTSIDE RECORDS SUMMARY | 2024-05-13 11:39 | External Medical Summary | Summary of Care ---
Author Name Unknown Organization [facility] Address [address] [facility] [place] [address] Phone [phone] Care Team Providers Care Freight Broker Agent Name Role Phone Sandra Goldstein MD Primary Care Prov ider Reason for Visit * Reason Onset Date Comments [facility]: Maintenance 05/10/2024 Encounter Details Date Type Department Care Team (Late st Contact Info) Description 05/10/2024 Telephone [facility], [facility] [address] [facility] [place] [address] Kim aRo RN [address] [facility] [place] [address] [facility]: Maintenance Allergies Active Allergy Reactions Criticality Noted Date [...] Oral Tablet (pLAVix)Indications: PAD (peripheral artery disease) ([facility]) Take 1 Tablet by mouth in the [...] Oral Capsule Take by mouth daily. Active [place] 3 1000 MG Oral Capsule Take by mouth daily. 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 to follow up on what time abdominal X-ray will be completed. Spoke with Sudha, will reach out to integrated pest management technician for ETA and will call patient. MASOOD Conner Registered Nurse Navigator Triage [facility] * Telephone Encounter - Kim Rao RN - 05/10/2024 11:03 AM EDT TT request from [facility] RNPRAVEENA to set up abdominal X-ray for today. Call to [employer], spoke with MAYO Galvan abdominal X-ray ordered for today, order and face sheet faxed to [phone]. Claim # [id number] MASOOD Conner Registered Nurse Navigator Triage [facility] documented in this encounter Plan of Treatment Upcoming Encounters Date Type Department Care Team (Late st Contact Info) Description 05/11/2024 9:15 AM EDT Scheduled Telephone [facility], [facility] [address] [facility] [place] [address] Coordinator, [facility] [address] [place] [address] 05/11/2024 4:00 PM EDT Home Visit [facility], [facility] [address] [place] [address] Kelly Rosa RN [address] [facility] [place] [address] 05/12/2024 2:30 PM EDT Office Visit Cardiology, [facility] [address] [facility] [place] [address] Luiz Pina PAGloria [address] [facility] [place] [address] 05/16/2024 9:45 AM EDT Imaging [facility] [address] [facility] [place] [address] 05/22/2024 9:50 AM EDT Office Visit Ophthalmology, [facility] [address] [facility] [place] [address] Marshall Paez T, DO [address] [facility] [place] [address] 05/22/2024 3:30 PM EDT Telemedicine Urology, [facility] [place] [address] Regan Alejandro MD [address] [place] [address] 06/15/2024 5:30 PM EDT Home Visit [facility], [facility] [address] [place] [address] Kelly Rosa RN [address] [place] [address] 06/24/2024 9:00 AM EDT Office Visit Family Practice [facility] [address] [place] [address] Sandra Goldstein MD [address] [place] [address] [place] [address] 09/12/2024 10:30 AM EST Office Visit Cardiology [address] [place] [address] Luiz Pina PA-C [address] [facility] [place] [address] 10/24/2024 10:30 AM EST Nurse Only Ancillary [address] [place] [address] [place], Nurse Annual Wellness [address] [place] [address] [place] [address] Health Maintenance Due Date Last Done Comments Diabetic Foot Exam 04/21/2024 04/21/2023, 1 , 05/28/2020, Additional history exists COVID-19 Vaccine ( season) 2024 10/01/2022, 06/17/2021, 11/14/2020, Additional history exists Influenza Vaccine (FLU shot) (#1) 2024 04/27/2023, 06/27/2022, 06/05/2021, Additional history exists CKD HGB USE SMARTSET 37417 05/29/202405/29, 03/19/2023, 03/19/2023, Additional history exists CKD PHOS USE SMARTSET 31077 05/29/2024 100 02/2023, 10/01/2022, 12/04/2020, Additional history exists GFR 09/07/2024 03/07/2024, 10/21, 05/29/2023, Additional history exists HbA1c 09/07/2024 03/07/2024, 10/21, 05/29/2023, Additional history exists Adult Wellness Visit 10/20/2024 10/21/2023 Depression Screening 10/20/2024 10/21/2023 B-12 11/07/2024 11/08/2023, 04/2023, 12/04/2020, Additional history exists Albumin/Creatinine Ratio 11/08/2024 024, 10/08/2022, 11/30/2017, Additional history exists Diabetic Eye Exam 01/24/2025 01/25/2024, , 06/15/2023, Additional history exists TSH 03/07/2025 03/07/2024, 110 04/2023, 05/29/2023, Additional history exists DTap/Tdap Vaccines [...] this encounter Medical Devices Implanted Type Area Ux Architect Device Identifier Shelf Expiration Date Model / Serial / Lot Sut Craig 6 M654g - [id number] Implanted:Qty: 4 on 10/21/2015 by Riki Chan MD at OR [facility] N/A: Chest JNJ : [employer] 07/22/2020 M654G / / [id number] Marker Coronary Am-Sd - [id number] Implanted:Qty: 1 on 10/21/2015 by Riki Chan MD at OR [facility] N/A: Chest [employer] 08/22/2018 AM-SD / / [id number] Marker Coronary Amgm-Sd - [id number] Implanted:Qty: 1 on 10/21/2015 by Riki Chan MD at OR [facility] Chest [employer] 06/22/2018 AM-SD / / [id number] documented as of this encounter Advance Directives [...] and were consensually agreed upon. Care Teams Freight Broker Agent Relationship Specialty Start Date End Date Sandra Goldstein MD [address] [place] [address] [place] [address] PCP - General Family Medicine 02/22/19 documented as of this encounter
--- OUTSIDE RECORDS SUMMARY | 2024-05-13 11:39 | External Medical Summary | Summary of Care ---
Author Name Unknown Organization [facility] Address [address] [facility] [address] Phone [phone] Care Team Providers Care Asset Protection Associate Name Role Phone Sandra Goldstein MD Primary Care Prov ider Encounter Details Date Type Department Care Team (Late st Contact Info) Description 05/10/2024 Orders Only [facility], [facility] [address] [facility] [place] [address] Willie Moctezuma MD [address] [facility] [place] [address] Generalized abdominal pain* Allergies Active Allergy Reactions [...] Oral Capsule Take by mouth daily. Active Clio 3 1000 MG Oral Capsule Take by mouth daily. 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 [address] [place] [address] 05/12/2024 2:30 PM EDT Office Visit Cardiology, [facility] [address] [facility] [place] [address] Luiz Pina PA-C 132 [facility] [place] [address] 05/16/2024 9:45 AM EDT Imaging Radiology [facility] [address] [facility] [place] [address] 05/22/2024 9:50 AM EDT Office Visit Ophthalmology, [facility] [address] [facility] [place] [address] Marshall Paez, DO 16 [place] [address] 05/22/2024 3:30 PM EDT Telemedicine Urology, [facility] [address] [facility] [place] [address] Regan Alejandro MD [address] [place] [address] 06/15/2024 5:30 PM EDT Home Visit [facility], [facility] [address] [facility] [place] [address] Kelly Rosa, JULIA [address] [place] [address] 06/24/2024 9:00 AM EDT Office Visit Family Practice [facility] [address] [facility] [place] [address] Sandra Goldstein MD [address] [place] [address] [place] [address] 09/12/2024 10:30 AM EST Office Visit Cardiology [address] [place] [address] Luiz Pina PA-C [address] [place] [address] 10/24/2024 10:30 AM EST Nurse Only Ancillary [address] [place] [address] [place], Nurse Annual Wellness [address] [place] [address] [place] [address] Scheduled Orders Name Type Priority Associated Diagnoses [...] Additional history exists CKD HGB USE SMARTSET 65314 05/29/202405/29, 03/19/2023, 03/19/2023, Additional history exists CKD PHOS USE SMARTSET 43979 05/29/202402/2023, 10/01/2022, 12/04/2020, Additional history exists GFR [...] this encounter Medical Devices Implanted Type Area Parts Finisher Device Identifier Shelf Expiration Date Model / Serial / Lot Sut Steel 6 M654g - [id number] Implanted:Qty: 4 on 10/21/2015 by Riki Chan MD at [place] [facility] N/A: Chest JNJ : [employer] 07/22/2020 M654G / / [id number] Marker Coronary Amgm-Sd - [id number] Implanted:Qty: 1 on 10/21/2015 by Riki Chan MD at OR [facility] N/A: Chest [employer] 08/22/2018 AMGM-SD / / [id number] Marker Coronary Amgm-Sd - [id number] Implanted:Qty: 1 on 10/21/2015 by Riki Chan MD at OR [facility] Chest [employer] 06/22/2018 AMGM-SD / / [id number] documented as of this encounter Visit Diagnoses [...] and were consensually agreed upon. Care Teams Asset Protection Associate Relationship Specialty Start Date End Date Sandra Goldstein MD [address] [place] [address] [place] [address] PCP - General Family Medicine 02/22/19 documented as of this encounter
--- OUTSIDE RECORDS SUMMARY | 2024-05-13 11:39 | External Medical Summary | Summary of Care ---
Author Name Unknown Organization [facility] Address [address] [facility] [place] [address] Phone [phone] Care Team Providers Care Multimedia Instructional Designer Name Role Phone Sandra Goldstein MD Primary Care Prov ider Encounter Details Date Type Department Care Team (Late st Contact Info) Description 05/10/2024 11:30 AM EDT [facility] 132 [facility] [place] [address] Kelly Rosa, RN 132 [facility] [place] [address] Dehydration Allergies Active Allergy Reactions Criticality Noted Date [...] Oral Capsule Take by mouth daily. Active Story 3 1000 MG Oral Capsule Take by mouth daily. Active Levothyroxine Sodium 112 MCG Oral Tablet (Levoxyl)Indications :Hypothyroidism due to acquired atrophy of thyroid Take 1 Tablet by mouth daily first thing in the morning at least 30 min prior to breakfast or other meds 90 Tablet 3 04/11/2024 Active Nystatin 064832 UNIT/GM External CreamIndications:Can didal diaper dermatitis Apply [...] dissolve on tongue. 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 [...] mRNA, LNP-s, No Pre serve, 2-Dose Series (C[employer]ew[employer]) 06/17/2021,11/14/2020,10/24/2020 Covid-19, Mrna, Lnp-s, Pf, B ivalent, 30 Mcg, IM, 12 yrs and above (Craneware) 10/01/2022 Pneumococcal Conjugate Vacc, 13 Valent (Prevnar) [...] on file documented as of this encounter Last Filed Vital Signs Vital Sign Reading Time Taken Comments Blood Pressure 118/68 05/10/2024 10:11 AM EDT Pulse 72 05/10/2024 10:11 AM EDT Temperature 36.1 C (97 F) 05/10/2024 10:11 AM EDT Respiratory Rate 18 05/10/2024 10:11 AM EDT Oxygen Saturation 97% 05/10/2024 10:11 AM EDT Inhaled Oxygen Concentration - - Weight - - Height - - Body Mass Index - - documented in this encounter Functional Status Functional Status Response [...] No 11/05/2015 documented as of this encounter Progress Notes * Kelly Rosa RN - 05/10/2024 11:12 AM EDT Current Concerns: Patient seen acute visit- per Dr. Rhodes- CBC, CMP- IV 1L today. Reports vomiting x 4 in 24/hr. Taking Zofran every 8 hour. Reports it is "helping- juni " Does state, " I really don't feel real good today." VS wnl Lungs clear bilaterally Sob with exertion Nonpitting edema BLE- more prominent RLE Open areas RLE- scabbed over- did go to wound clinic prior to healing. Voiding without difficulty- doesn't urinate a whole lot Does have PET scan of prostate ordered for next Wednesday. Has not moved bowels since last Wednesday- hypoactive/faint bowel sounds noted. Abdomen soft non-distended- non-tender when palpated But reports lower quadrant abdominal discomfort. Appetite poor Drank approximately 8 ounces total in [address] TT to Dr. Hale- regarding Abdomen Stat order for abdominal xray. Xrays to be completed today by [facility] mobile. IV place right FA- labs drawn- to [place] 1L NSS infused without difficulty 22 g IV left intact. RN CM follow up visit tomorrow. Physical Exam: Physical Exam Constitutional: Appearance: Normal appearance. Cardiovascular: Rate and Rhythm: Normal rate. Rhythm irregular. Pulses: Normal pulses. Pulmonary: Effort: Pulmonary effort is normal. Breath sounds: Normal breath sounds. Abdominal: General: Bowel sounds are normal. Palpations: Abdomen is soft. Musculoskeletal: General: Normal range of motion. Right lower leg: Edema present. Left lower leg: Edema present. Skin: General: Skin is warm and dry. Capillary Refill: Capillary refill takes 2 to 3 seconds. Neurological: General: No focal deficit present. Mental Status: He is alert and oriented to person, place, and time. Psychiatric: Mood and Affect: Mood normal. Behavior: Behavior normal. Review of Systems: Review of Systems Constitutional: Negative. HENT: Negative. Respiratory: Positive for shortness of breath. Gastrointestinal: Positive for abdominal pain. Genitourinary: Negative. Musculoskeletal: Positive for gait problem. Skin: Negative. Hematological: Negative. Psychiatric/Behavioral: Negative. Care Plan Goal Progress: Orders Placed: Plan CBC Differential, Automated Medications Given: Administrations This Visit NSS 0.9% 1,000 mL bolus infusion Admin Date 05/10/2024 Action New Bag Dose 1,000 mL Rate 1,000 mL/hr Route Intravenous Documented By Kelly Rosa RN Care Gaps: Care Gaps Care gaps closed this contact:: Education;Home based procedures;Lab/radiology testing coordinated (05/10/24 1114) Type of education: Clinical/disease (05/10/24 1114) Procedure performed: IV hydration (05/10/24 111) documented in this encounter Plan of Treatment Upcoming Encounters Date Type Department Care Team (Late st Contact Info) Description 05/11/2024 9:15 AM EDT Scheduled Telephone [facility], [address] [place] [address] Coordinator, [facility] [place] [address] 05/11/2024 4:00 PM EDT Home Visit [facility], [facility] 132 [facility] [place] [address] Kelly Rosa, JULIA 132 [facility] [place] [address] 05/12/2024 2:30 PM EDT Office Visit Cardiology, [address] [place] [address] Luiz Pina PA-C 132 [facility] [place] [address] 05/16/2024 9:45 AM EDT Imaging [facility] 132 [facility] [place] [address] 05/22/2024 9:50 AM EDT Office Visit Ophthalmology, [address] [place] [address] Marshall Paez T, DO 16 [place] [address] 05/22/2024 3:30 PM EDT Telemedicine Urology, [facility] 132 [facility] [place] [address] Regan Alejandro MD [address] [place] [address] 06/15/2024 5:30 PM EDT Home Visit [facility], [place] [address] [place] [address] Kelly Rosa, RN [address] [place] [address] 06/24/2024 9:00 AM EDT Office Visit [facility] [address] [place] [address] Sandra Goldstein MD [address] [place] [address] [place] [address] 09/12/2024 10:30 AM EST Office Visit Cardiology [address] [place] [address] Luiz Pina PA-C [address] [place] [address] 10/24/2024 10:30 AM EST Nurse Only Ancillary [address] [place] [address] [place], Nurse Annual [address] [place] [address] Pending Results Name Type Priority Associated Diagnoses Date /Time CBC WITH WBC DIFFERENTIAL Lab Routine Dehydration 05/10/2024 11:19 AM EDT COMPREHENSIVE METABOLIC PANEL Lab Routine Dehydration 05/10/2024 11:19 AM EDT CBC Lab Routine Dehydration 05/10/2024 11:19 AM EDT DIFFERENTIAL, AUTOMATED Lab Routine Dehydration 05/10/2024 11:19 AM EDT Health Maintenance Due Date Last Done Comments Diabetic Foot Exam 04/21/2024 04/21/2023, 1 , 05/28/2020, Additional history exists COVID-19 Vaccine ( season) 2024 10/01/2022, 06/17/2021, 11/14/2020, Additional history exists Influenza Vaccine (FLU shot) (#1) 2024 04/27/2023, 06/27/2022, 06/05/2021, Additional history exists CKD HGB USE SMARTSET 38771 05/29/202405/29, 03/19/2023, 03/19/2023, Additional history exists CKD PHOS USE SMARTSET 08756 05/29/2024 100 02/2023, 10/01/2022, 12/04/2020, Additional history [...] 03/07/2025 03/07/2024, 1104/2023, 05/29/2023, Additional history exists DTap/Tdap Vaccines (3 - Td or Tdap) 03/27/2033 03/27/2023, 03/08/2013 Pneumococcal Vaccine: 65+ Years Completed 08/13/2015, 07/07/2012 Zoster Vaccines Completed 12/02/2021, 1209/2020, 06/06/2020, Additional history exists DXA Scan Discontinued [...] this encounter Medical Devices Implanted Type Area Saw Handle Assembler Device Identifier Shelf Expiration Date Model / Serial / Lot Jenelle Srinivasan 6 M654g - [id number] Implanted:Qty: 4 on 10/21/2015 by Riki Chan MD at OR [facility] [place] N/A: Chest JNJ : [employer] 07/22/2020 M654G / / [id number] Marker Coronary Amgm-Sd - [id number] Implanted:Qty: 1 on 10/21/2015 by Riki Chan MD at OR [facility] N/A: Chest [employer] 08/22/2018 AM-SD / / [id number] Marker Coronary Amgm-Sd - [id number] Implanted:Qty: 1 on 10/21/2015 by Riki Chan MD at OR [facility] Chest [employer] 06/22/2018 AM-SD / / [id number] documented as of this encounter Visit Diagnoses Diagnosis Dehydration documented in this encounter Administered Medications Inactive Administered Medications - up to 3 most recent administrations Medication Order MAR Action Action Date Dose Rate Site NSS 0.9% 1,000 mL bolus infusion Intravenous, at 1,000 mL/hr Administer over 60 Minutes, Administer entire volume within 60 minutes or less., ONCE, 1 dose, On Wed05/10/24 at 0000 New Bag 05/10/2024 11:15 AM EDT 1,000 mL 1000 mL/hr Forearm Right documented in this encounter Advance Directives * [...] and were consensually agreed upon. Care Teams Multimedia Instructional Designer Relationship Specialty Start Date End Date Sandra Goldstein MD [address] [place] [address] [place] [address] PCP - General Family Medicine 02/22/19 documented as of this encounter
--- OUTSIDE RECORDS SUMMARY | 2024-05-13 11:39 | External Medical Summary ---
Author Name Unknown Address Unknown Organization K01:[facility] [address] [place] [address] Laboratory Report Ordering Provider Test Date Status MARY MAHER 05/10/2024 11:19:29 Final Observation Date Value Abnormality Reference (Units ) Status Ferritin 05/10/2024 11:19:29 111 30-400 (ng /mL) Final Performing Location [facility] [address] [place] [address]
--- OUTSIDE RECORDS SUMMARY | 2024-05-13 11:39 | External Medical Summary | Summary of Care ---
Author Name Unknown Organization [facility] Address [address] [place] [address] Phone [phone] Care Team Providers Care Elementary Education Teacher Name Role Phone Sandra Goldstein MD Primary Care Prov ider Reason for Visit * Reason Onset Date Comments Appointment 05/11/2024 Encounter Details Date Type Department Care Team (Late st Contact Info) Description 05/11/2024 Telephone [facility], [place] [address] [place], [place] [id number] Maribel Mansfield [facility] [address] [place] [address] Appointment Allergies Active Allergy Reactions Criticality Noted Date Comments Lisinopril Cough Low 12/21/2012 documented as of this encounter (statuses as of 05/11/2024) Medications Medication Sig Dispensed Refills Start Date [...] Oral Capsule Take by mouth daily. Active Archbald 3 1000 MG Oral Capsule Take by mouth daily. Active Levothyroxine Sodium 112 MCG Oral Tablet (Levoxyl)Indications :Hypothyroidism due to acquired atrophy of thyroid Take 1 Tablet by mouth daily first thing in the morning at least 30 min prior to breakfast or other meds 90 Tablet 3 04/11/2024 Active Nystatin 887195 UNIT/GM External CreamIndications:Can didal diaper dermatitis Apply [...] TOP BID (.AM/PM) 06/10/2021 Active NSS 0.9% 500 mL bolus infusionIndications:Dehy dration 500 mL IV ONCE 05/11/2024 05/12/2024 Active documented as of this encounter (statuses as of 05/11/2024) Active Problems Problem Noted Date Diagnosed Date [...] as of this encounter (statuses as of 05/11/2024) Resolved Problems Problem Noted Date Diagnosed Date [...] CHF 05/26/2019 05/22/2022 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 documented in this encounter Plan of Treatment Upcoming Encounters Date Type Department Care Team (Late st Contact Info) Description 05/12/2024 2:15 PM EDT Scheduled Telephone [facility] [place], [facility] [address] [address] [address] Coordinator, [facility] [address] [address] 05/12/2024 2:30 PM EDT Office Visit Cardiology, [facility] [address] [address] Luiz Pina PA-C [address] [place] [address] 05/13/2024 9:00 AM EDT Scheduled Telephone [facility], [facility] [address] [place] [address] [facility] [address] [place] [address] 05/16/2024 9:45 AM EDT Imaging [facility] [place] [address] 05/17/2024 4:00 PM EDT [facility] Visit [facility], [facility] [place] [address] Kelly Rosa, JULIA [facility] [place] [address] 05/22/2024 9:50 AM EDT Office Visit Ophthalmology, [facility] 132 [facility] [address] [address] [place] [address] Marshall Paez T, DO 16 [place] [address] 05/22/2024 3:30 PM EDT Telemedicine Urology, [facility] 132 [facility] [place] [address] Regan Alejandro MD [address] [place] [address] 06/15/2024 5:30 PM EDT [facility] Visit [facility], [facility] [place] [address] Kelly Rosa, JULIA [address] [address] 06/24/2024 9:00 AM EDT Office Visit Family Practice [facility] [address] [place] [address] Sandra Goldstein MD [address] [place] [address] [place] [address] 09/12/2024 10:30 AM EST Office Visit Cardiology [address] [place] [address] Luiz Pian PA-C [address] [place] [address] 10/24/2024 10:30 AM EST Nurse Only Ancillary [address] [place] [address] [place], Nurse Annual [address] [place] [address] Health Maintenance Due Date Last Done Comments Diabetic Foot Exam 04/21/2024 04/21/2023, 1 , 05/28/2020, Additional history exists COVID-19 Vaccine ( season) 2024 10/01/2022, 06/17/2021, 11/14/2020, Additional history exists Influenza Vaccine (FLU shot) (#1) 2024 04/27/2023, 06/27/2022, 06/05/2021, Additional history exists CKD PHOS USE SMARTSET 91411 05/29/2024 10/0 02/2023, 10/01/2022, 12/04/2020, Additional history exists HbA1c 09/07/2024 03/07/2024, 10/21, 05/29/2023, Additional history exists Adult Wellness Visit 10/20/2024 10/21/2023 Depression Screening 10/20/2024 10/21/2023 B-12 11/07/2024 11/08/2023, 0 04/2023, 12/04/2020, Additional history exists GFR 11/07/2024 05/10/2024, 02/20, 11/08/2023, Additional history exists Albumin/Creatinine Ratio 11/08/2024 03/2 024, 10/08/2022, 11/30/2017, Additional history exists Diabetic Eye Exam 01/24/2025 01/25/2024, , 06/15/2023, Additional history exists TSH 03/07/2025 03/07/2024, 110 04/2023, 05/29/2023, Additional history exists CKD HGB USE SMARTSET 54972 05/10/202505/10, 05/10/2024, 05/29/2023, Additional history exists DTap/Tdap [...] this encounter Medical Devices Implanted Type Area Aircraft Load Controller Device Identifier Shelf Expiration Date Model / Serial / Lot Sut Steel 6 M654g - [id number] Implanted:Qty: 4 on 10/21/2015 by Riki Chan [place] [facility] [place]A: Chest JNJ : [employer] 07/22/2020 M654G / / [id number] Marker Coronary Amgm-Sd - [id number] Implanted:Qty: 1 on 10/21/2015 by Riki Chan MD [place] [facility] [place]/A: Chest [employer] 08/22/2018 AMGM-SD / / [id number] Marker Coronary Amgm-Sd - [id number] Implanted:Qty: 1 on 10/21/2015 by Riki Chan MD [place] [facility] Chest [employer] 06/22/2018 [facility] / / [id number] documented as of this encounter Advance Directives [...] and were consensually agreed upon. Care Teams Elementary Education Teacher Relationship Specialty Start Date End Date Sandra Goldstein MD [address] [place] [address] [place] [address] PCP - General Family Medicine 02/22/19 documented as of this encounter
--- OUTSIDE RECORDS SUMMARY | 2024-05-13 11:39 | External Medical Summary | Summary of Care ---
Author Name Unknown Organization [facility] Address [address] [facility] [place] [address] Phone [phone] Care Team Providers Care Pondman Name Role Phone Sandra Goldstein MD Primary Care Prov ider Reason for Visit * Reason Onset Date Comments [facility]: Maintenance 05/10/2024 Encounter Details Date Type Department Care Team (Late st Contact Info) Description 05/10/2024 Telephone [facility], [facility] [address] [facility] [place] [address] Kim Rao RN [address] [facility] [place] [address] [facility]: Maintenance Allergies Active Allergy [...] Oral Tablet (pLAVix)Indications: PAD (peripheral artery disease) ([facility]) Take 1 Tablet by mouth in the [...] Oral Capsule Take by mouth daily. Active [place] 3 1000 MG Oral Capsule Take by mouth daily. 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 Call to [facility], spoke with MAYO Galvan abdominal X-ray ordered for today, order and face sheet faxed to [phone]. MASOOD Conner Registered Nurse Navigator Triage [facility] documented in this encounter Plan of Treatment Upcoming Encounters Date Type Department Care Team (Late st Contact Info) Description 05/10/2024 11:30 AM EDT Home Visit [facility], [facility] 132 [facility] [place] [address] Kelly Rosa, RN 132 [facility] [place] [address] Dehydration 05/11/2024 9:15 AM EDT Scheduled Telephone [facility], [facility] 132 [facility] [place] [address] Coordinator, [facility] 132 [facility] [place] [address] 05/12/2024 2:30 PM EDT Office Visit Cardiology, [facility] 132 [facility] [place] [address] Luiz Pina PA-C [facility] [place] [address] 05/16/2024 9:45 AM EDT Imaging [facility] [address] [facility] [place] [address] 05/22/2024 9:50 AM EDT Office Visit Ophthalmology, [facility] [place] [address] Marshall Paez T, DO 16 [place] [address] 05/22/2024 3:30 PM EDT Telemedicine Urology, [facility] 132 [facility] [place] [address] Regan Alejandro MD 27 [place] [address] 06/15/2024 5:30 PM EDT Home Visit [facility], [facility] 132 [facility] [place] [address] Kelly Rosa, RN [address] [place] [address] 06/24/2024 9:00 AM EDT Office Visit Family [facility] 132 [place] [address] Sandra Goldstein MD [address] [place] [address] [place] [address] 09/12/2024 10:30 AM EST Office Visit Cardiology [address] [place] [address] Luiz Pina PA-C 132 [place] [address] 10/24/2024 10:30 AM EST Nurse Only Ancillary [address] [place] [address] [place], Nurse [facility] [address] [place] [address] [place] [address] Health Maintenance Due Date Last Done Comments Diabetic Foot Exam 04/21/2024 04/21/2023, 1 , 05/28/2020, Additional history exists COVID-19 Vaccine ( season) 2024 10/01/2022, 06/17/2021, 11/14/2020, Additional history exists Influenza Vaccine (FLU shot) (#1) 2024 04/27/2023, 06/27/2022, 06/05/2021, Additional history exists CKD HGB USE SMARTSET 93830 05/29/202405/29, 03/19/2023, 03/19/2023, Additional history exists CKD PHOS USE SMARTSET 19865 05/29/2024 100 02/2023, 10/01/2022, 12/04/2020, Additional history [...] 03/07/2025 03/07/2024, 04/2023, 05/29/2023, Additional history exists DTap/Tdap Vaccines [...] this encounter Medical Devices Implanted Type Area Supervisor Beater Room Device Identifier Shelf Expiration Date Model / Serial / Lot Sut Steel 6 [id number] - [id number] Implanted:Qty: 4 on 10/21/2015 [place] [facility] [place]: Chest JNJ : [employer] 07/22/2020 [id number] / / [id number] Marker Coronary Amgm-Sd - [id number] Implanted:Qty: 1 on 10/21/2015 [place] [facility] [place]A: Chest [employer] 08/22/2018 AMGM-SD / / [id number] Marker Coronary Amgm-Sd - [id number] Implanted:Qty: 1 on 10/21/2015 [place] Riki Chan [place] [facility] [place] Chest [employer] 06/22/2018 [facility] / [id number] documented as of this encounter Advance Directives [...] and were consensually agreed upon. Care Teams [place] Relationship Specialty Start Date End Date Sandra Goldstein MD [address] [place] [address] [place] [phone] PCP - General Family Medicine 02/22/19 documented as of this encounter
--- OUTSIDE RECORDS SUMMARY | 2024-05-13 11:39 | External Medical Summary | Summary of Care ---
Author Name Unknown Organization [facility] Address [address] [facility] [place] [address] Phone [phone] Care Team Providers Care Branch Manager Trainee Name Role Phone Sandra Goldstein MD Primary Care Prov ider Encounter Details Date Type Department Care Team (Late st Contact Info) Description 05/11/2024 12:30 PM EDT [facility] 132 [facility] [place] [address] Kelly Rosa, RN 132 [facility] [place] [address] Allergies Active Allergy Reactions Criticality Noted Date Comments Lisinopril Cough Low 12/21/2012 documented as of this encounter (statuses as of 05/11/2024) Medications Medication Sig Dispensed Refills Start Date End Date Status oxygen GAS 1LPM bled through bipap 1 Each 11/28/2019 Active Additional Information Patient not taking.Reported on 04/21/2023 Vitamin D3 25 MCG (1000 UT) Oral Tablet (Vitamin D3)Indications:Sandra min D deficiency Take by mouth 2 Tablets in the morning. 180 Tablet 1 11/21/2021 Active BiPAP every night at bedtime . Active Clotrimazole 1 % External Cream (Lotrimin) Apply topically to affected area 2 times a day . 60 g 2 03/16/2022 Active Nitroglycerin 0.4 MG Sublingual Tablet Sublingual (Nitrostat)Indicati ons:History of myocardial infarction,S/P CABG x 3 place [...] Active Clopidogrel Bisulfate 75 MG Oral Tablet (pLAVix)Indications :PAD (peripheral artery disease) (HCC) Take 1 Tablet by mouth in the morning. 90 Tablet 3 10/19/2023 Active Tamsulosin HCl 0.4 MG Oral Capsule (Flomax)Indications :BPH without obstruction/lower urinary tract symptoms Take one capsule daily 90 Capsule 3 10/19/2023 Active Losartan Potassium 50 MG Oral Tablet (Cozaar)Indications :HTN, goal below 150/90 Take 1/2 Tablets by mouth in the morning and before bedtime. 90 Tablet 3 10/19/2023 Active Metoprolol Succinate ER 50 MG Oral Tablet Extended Release 24 Hour (toPROL XL)Indications:Paro xysmal atrial fibrillation (HCC),HTN, goal below 150/90,Chronic ischemic heart disease,VF (ventricular fibrillation) (HCC) Take 1 Tablet by mouth 2 times a day. 180 Tablet 3 10/19/2023 Active Amiodarone HCl 200 MG Oral Tablet (Cordarone)Indicati ons:Paroxysmal atrial fibrillation (HCC) Take 1 Tablet by mouth in the morning. 100 Tablet 3 10/26/2023 Active Furosemide 40 MG Oral Tablet (Lasix)Indications: Paroxysmal atrial fibrillation (HCC),HTN, goal below 150/90,Ischemic cardiomyopathy Take 1 Tablet by mouth in the morning. 90 Tablet 3 03/23/2024 Active Potassium Chloride Valentina ER 10 MEQ Oral Tablet Extended ReleaseIndications: Acute decompensated heart failure (HCC) Take 1 Tablet by mouth in the morning. 90 Tablet 3 03/23/2024 Active Apixaban 2.5 MG Oral Tablet (Eliquis)Indication s:Paroxysmal atrial fibrillation (HCC) Take 1 Tablet by mouth in the morning and 1 Tablet before bedtime. 180 Tablet 3 03/23/2024 Active Quercetin 500 MG Oral Capsule Take by mouth daily. Active L-Carnitine 500 MG Oral Capsule Take by mouth daily. Active [place] 3 1000 MG Oral Capsule Take by mouth daily. Active Levothyroxine Sodium 112 MCG Oral Tablet (Levoxyl)Indication s:Hypothyroidism due to acquired atrophy of thyroid Take 1 Tablet by mouth daily first thing in the morning at least 30 min prior to breakfast or other meds 90 Tablet 3 04/11/2024 Active Nystatin 597642 UNIT/GM External CreamIndications:Ca ndidal diaper dermatitis Apply topically to affected area [...] for Nausea. 12 Tablet 1 05/10/2024 Active Ciprofloxacin HCl 500 MG Oral Tablet (Cipro) Take 1 Tablet by mouth in the morning and 1 Tablet before bedtime. Start day prior to biopsy. 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 burial 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 Received IV hydration/IV Zofran 05/08. IV hydration and script for Compazine to replace Zofran ODT 05/10 Abd xray negative for obstruction Labs- Hemoglobin 9.7 GFR- 35 Creat- 1.9 Denies blood in urine- has not moved bowels since Wednesday. VS wnl Lungs clear bilaterally Denies sob Mild nonpitting edema RLE- previous wounds scabbed over Voiding without difficulty Bowels- hypoactive Taking fluids with encouragement TT to Dr. Rhodes- made aware of above. RFA IV left in- flushed well. 500ml NSS infused without difficulty. IV discontinued- pressure dressing applied. Patient did dry heave 2-3 times during visit- no vomiting. Took compazine. Has not taken pills since weekend. Did discuss importance of taking following antiemetic. Voices understanding. Phone call for follow up tomorrow and Wednesday. Patient encouraged to go to Cardiology appointment tomorrow. BURT to take to appointment. Physical Exam: Physical Exam Constitutional: Appearance: Normal appearance. Cardiovascular: Rate and Rhythm: Normal rate. Rhythm irregular. Pulses: Normal pulses. Pulmonary: Effort: Pulmonary effort is normal. Breath sounds: Normal breath sounds. Abdominal: General: Bowel sounds are normal. Palpations: Abdomen is soft. Musculoskeletal: General: Normal range of motion. Right lower leg: Edema present. Skin: General: Skin is warm and dry. Capillary Refill: Capillary refill takes 2 to 3 seconds. Neurological: General: No focal deficit present. Mental Status: He is alert and oriented to person, place, and time. Psychiatric: Mood and Affect: Mood normal. Behavior: Behavior normal. Review of Systems: Review of Systems Constitutional: Negative. HENT: Negative. Respiratory: Negative. Cardiovascular: Positive for leg swelling. Gastrointestinal: Negative. Genitourinary: Negative. Musculoskeletal: Positive for gait problem. Skin: Negative. Hematological: Negative. Psychiatric/Behavioral: Negative. Care Plan Goal Progress: Orders Placed: No orders of the defined types were placed in this encounter. Medications Given: Administrations This Visit NSS 0.9% 500 mL bolus infusion Admin Date 05/11/2024 Action New Bag Dose 500 mL Rate 500 mL/hr Route Intravenous Documented By Kelly Rosa, JULIA Care Gaps: Care Gaps Care gaps closed this contact:: Education;Home based procedures (05/11/241810) Type of education: Clinical/disease (05/11/241810) Procedure performed: IV hydration (09/19/24 1811) documented in this encounter Plan of Treatment Upcoming Encounters Date Type Department Care Team (Late st Contact Info) Description 05/12/2024 2:15 PM EDT Scheduled Telephone [facility], [facility] [address] [place] [address] Coordinator, [facility] [address] [place] [address] 05/12/2024 2:30 PM EDT Office Visit Cardiology, [facility] [address] [place] [address] Luiz Pina PA-C [address] [place] [address] 05/13/2024 9:00 AM EDT Scheduled Telephone [facility], [facility] [address] [place] [address] Region, Nurse [place] [address] [address] [place] [address] 05/15/2024 8:30 AM EDT Home Visit [facility], [facility] [address] [place] [address] Kelly Rosa RN [address] [place] [address] 05/16/2024 9:45 AM EDT Imaging Radiology [facility] [address] [place] [address] 05/17/2024 4:00 PM EDT Home Visit [facility], [facility] [address] [place] [address] Kelly Rosa, JULIA [address] [facility] [place] [address] 05/22/2024 9:50 AM EDT Office Visit Ophthalmology, [facility] [place] [address] Marshall Paez T, DO 16 [place] [address] 05/22/2024 3:30 PM EDT Telemedicine Urology, [facility] 132 [facility] [place] [address] Regan Alejandro MD [address] [facility] [place] [address] 06/15/2024 5:30 PM EDT Home Visit [facility], [facility] 132 [facility] [place] [address] Kelly Rosa RN 132 [facility] [place] [address] 06/24/2024 9:00 AM EDT Office Visit Family Practice [facility] 132 [facility] [place] [address] Sanrda Goldstein MD [address] [place] [address] [place] [address] 09/12/2024 10:30 AM EST Office Visit Cardiology [address] [place] [address] Luiz Pina PARaheemC 132 [facility] [place] [address] 10/24/2024 10:30 AM EST Nurse Only Ancillary [address] [place] [address] [place], Nurse [address] [place] [address] Health Maintenance Due Date Last Done Comments Diabetic Foot Exam 04/21/2024 04/21/2023, 1 , 05/28/2020, Additional history exists COVID-19 Vaccine ( season) 2024 10/01/2022, 06/17/2021, 11/14/2020, Additional history exists Influenza Vaccine (FLU shot) (#1) 2024 04/27/2023, 06/27/2022, 06/05/2021, Additional history exists CKD PHOS USE SMARTSET 84503 05/29/2024 1002/2023, 10/01/2022, 12/04/2020, Additional history exists HbA1c 09/07/2024 [...] Additional history exists CKD HGB USE SMARTSET 50993 05/10/202505/10, 05/10/2024, 05/29/2023, Additional history exists DTap/Tdap [...] this encounter Medical Devices Implanted Type Area B2B Account Executive Device Identifier Shelf Expiration Date Model / Serial / Lot Sut Steel 6 M654g - [id number] Implanted:Qty: 4 on 10/21/2015 by Riki Chan MD at [place] [facility] [place] N/A: Chest JNJ : [employer] 07/22/2020 [id number] / / [id number] Marker Coronary Amgm-Sd - [id number] Implanted:Qty: 1 on 10/21/2015 by Riki Chan MD at [place] [facility] [place] N/A: Chest [employer] 08/22/2018 AMGM-SD / / [id number] Marker Coronary Amgm-Sd - [id number] Implanted:Qty: 1 on 10/21/2015 by Riki Chan MD at [place] [facility] [place] Chest [employer] 06/22/2018 AMGM-SD / / [id number] documented as of this encounter Administered Medications Inactive Administered Medications - up to 3 most recent administrations Medication Order MAR Action Action Date Dose Rate Site NSS 0.9% 500 mL bolus infusion Intravenous, at 500 mL/hr Administer over 60 Minutes, ONCE, 1 dose, On Daphne 05/11/24 at 1315 New Bag 05/11/2024 1:11 PM EDT 500 mL 500 mL/hr Forearm Right documented in this encounter [...] and were consensually agreed upon. Care Teams Branch Manager Trainee Relationship Specialty Start Date End Date Sandra Goldstein MD [address] [place] [address] [place] [address] PCP - General Family Medicine 02/22/19 documented as of this encounter
--- OUTSIDE RECORDS SUMMARY | 2024-05-13 11:39 | External Medical Summary ---
Author Name Unknown Address Unknown Organization [id number]:[facility] [place] - [address] [facility] [address] Laboratory Report Ordering Provider Test Date Status RL HERCULES 05/10/2024 11:19:29 Final Observation Date Value Abnormality Reference (Units ) Status WBC, Total 05/10/2024 11:19:29 10.05 4.00-10.80 (K/uL) Final RBC 05/10/2024 11:19:29 3.95 4.50-5.25 (M/uL) Final Hemoglobin 05/10/2024 11:19:29 9.7 Below low normal 14.0-16.8 (g/dL) Final HCT 05/10/2024 11:19:29 32.2 Below low normal 40.0-48.4 (%) Final MCV 05/10/2024 11:19:29 81.5 82.0-99.5 (fL) Final MCH 05/10/2024 11:19:29 24.6 27.0-34.0 (pg) Final MCHC 05/10/2024 11:19:29 30.1 32.0-36.0 (g/dL) Final RDW 05/10/2024 11:19:29 20.5 11.5-15.5 (%) Final Platelets 05/10/2024 11:19:29 213 140-400 (K/uL) Final MPV 05/10/2024 11:19:29 9.7 6.6-11.1 (fL) Final Nucleated erythrocytes/100 leukocytes [Ratio] in Blood by Automated count 05/10/2024 11:19:29 0 <=0 (/100 WBCs) Final Performing Location [facility] - [address] [place] [address]
--- OUTSIDE RECORDS SUMMARY | 2024-05-13 11:39 | External Medical Summary ---
Author Name Unknown Address Unknown Organization [id number][place] [place] [address] [place] [address] Laboratory Report Ordering Provider Test Date Status MARY MAHER 05/10/2024 11:19:29 Final Observation Date Value Abnormality Reference (Units ) Status Iron 05/10/2024 11:19:29 36 Below low normal 45-176 (ug/dL) Final Iron-binding capacity 05/10/2024 11:19:29 320 250-425 (ug/dL) Final Transferrin Sat % 05/10/2024 11:19:29 11 Below low normal 15-55 (%) Final Performing Location LABORATORY C - [address] [place] [address]
--- OUTSIDE RECORDS SUMMARY | 2024-05-13 11:39 | External Medical Summary ---
Author Name Unknown Address Unknown Organization [id number][place] [place] [address] [facility] [address] Laboratory Report Ordering Provider Test Date Status RL HERCULES 05/10/2024 11:19:29 Final Observation Date Value Abnormality Reference (Units ) Status SYNC LEUKOCYTES IN BLOOD BY AUTOMATED COUNT 05/10/2024 11:19:29 10.05 4.00-10.80 (K/uL) Final Segs 05/10/2024 11:19:29 85.1 Above high normal 40.0-75.0 (%) Final Lymphs % 05/10/2024 11:19:29 8.6 Below low normal 18.0-42.0 (%) Final Monos 05/10/2024 11:19:29 5.0 1.0-11.0 (%) Final Eosinophils 05/10/2024 11:19:29 0.4 0.0-6.0 (%) Final Basos 05/10/2024 11:19:29 0.4 0.0-2.0 (%) Final Immature Granulocyte, Percent 05/10/2024 11:19:29 0.5 0.0-2.0 (%) Final Absolute Segs 05/10/2024 11:19:29 8.56 Above high normal 1.80-7.70 (K/uL) Final Lymphs, absolute 05/10/2024 11:19:29 0.86 Below low normal 1.00-4.80 (K/ul) Final Monos, Abs 05/10/2024 11:19:29 0.50 0.00-1.10 (K/uL) Final Eos, Abs 05/10/2024 11:19:29 0.04 0.00-0.70 (K/uL) Final Basos, Abs 05/10/2024 11:19:29 0.04 0.00-0.20 (K/uL) Final Immature Granulocytes, Number 05/10/2024 11:19:29 0.05 0.00-0.20 (K/uL) Final Performing Location [facility] [place] [facility] [address] [place] [address]
--- OUTSIDE RECORDS SUMMARY | 2024-05-13 11:39 | External Medical Summary ---
Author Name Unknown Address Unknown Organization [id number]:[facility] [place] - [address] [place] [address] Laboratory Report Ordering Provider Test Date Status MARY MAHER 05/10/2024 11:19:29 Final Observation Date Value Abnormality Reference (Units ) Status TSH 05/10/2024 11:19:29 2.38 0.27-4.20 (uIU/mL) Final Performing Location LAB[facility] [place] - [address] [place] [address]
--- OUTSIDE RECORDS SUMMARY | 2024-05-13 11:39 | External Medical Summary | Summary of Care ---
Author Name Unknown Organization [facility] Address [address] [place] [address] Phone [phone] Care Team Providers Care Bleach Liquor Maker Name Role Phone Sandra Goldstein MD Primary Care Prov ider Reason for Visit * Reason Onset Date Comments [facility]: Maintenance 05/09/2024 Encounter Details Date Type Department Care Team (Late st Contact Info) Description 05/09/2024 11:15 AM EDT Scheduled Telephone [facility], [facility] 132 [facility] [place] [address] Coordinator, [facility] [place] [address] Dehydration* Allergies Active Allergy Reactions Criticality Noted Date Comments Lisinopril Cough Low 12/21/2012 documented as of this encounter (statuses as of 05/09/2024) Medications Medication Sig Dispensed Refills Start Date [...] Oral Tablet (pLAVix)Indications: PAD (peripheral artery disease) ([facility]) Take 1 Tablet by mouth in the [...] Oral Capsule Take by mouth daily. Active [place] 3 1000 MG Oral Capsule Take by mouth daily. 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 BHUIPNDER (obstructive sleep apnea) 06/20/2013 Overview: AHI 34 [...] as of this encounter (statuses as of 05/09/2024) Resolved Problems Problem Noted Date Diagnosed Date [...] CHF 05/26/2019 05/22/2022 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 Verbalized understanding. MASOOD Conner Registered Nurse Navigator Triage [facility] * Telephone Encounter - Perfecto Rhodes DO - 05/09/2024 12:15 PM EDT Images from the original note were not included. [facility] Remote Medical Command QuickNote Recommendations: Received 1L NSS yesterday with Zofran but need to know the underlying cause of no food in the past 5 days Should have f/u today - can we schedule reassessment tomorrow - really [facility] Ongoing Onc w/u in progress - is there specifics to abdominal exam leading us to get imaging urgently? Orders: Plan CBC with WBC Differential Comprehensive Metabolic Panel NSS 0.9% 1,000 mL bolus infusion To Do: Please see below for follow up items to be completed and correspondence: ADRIEL Elliott's Care Team receptionist Pool please work on the following: help with coordination of NEXT day acupuncturist visit Perfecto Rhodes DO Remote Medical Command - [facility] 05/09/2024 Scheduled appointments in the next 60 days: Future Appointments-next 60 days Date/Time Provider Specialty Dept Phone 05/10/2024 11:00 AM Coordinator, Shea Jesus [facility] [phone] 05/12/2024 2:30 PM (Arrive by 2:15 PM) Luiz Pina PA-C Cardiology [phone] 05/16/2024 9:45 AM (Arrive by 9:30 AM) [facility] PET INJECTION Radiology [phone] 05/16/2024 11:00 AM PET MOBILE [facility] Radiology [phone] 05/22/2024 9:50 AM Marshall Paez DO Ophthalmology [phone] 05/22/2024 3:30 PM Regan Alejandro MD Urology Arrive at: Patient's Home [phone] 06/15/2024 5:30 PM Kelly Rosa RN [facility] [phone] 06/24/2024 9:00 AM (Arrive by 8:45 AM) Sandra Goldstein MD Family Medicine [phone] 09/12/2024 10:30 AM (Arrive by 10:15 AM) Luiz Pina PA-C Cardiology [phone] 10/24/2024 10:30 AM Nurse Juliann [facility] Ancillary [phone] * Telephone Encounter - Kim Rao RN - 05/09/2024 9:41 AM EDT Images from the original note were not included. [facility] Telephonic Nurse Follow-Up Call [facility] Subprogram: No data was found Follow Up Call Type: Routine follow up call / Status Check Acute issue requiring follow-up call: Other: vomiting Objective: 05/08/2024 12:21 PM 04/28/2024 9:02 AM 03/29/2024 1:30 PM 03/08/2024 2:32 PM 03/07/2024 11:37 AM VITALS ACROSS ENCOUNTERS BP 120/70 92/62 118/72 104/58 110/70 Pulse 72 70 72 100 75 Weight 95.4 kg 96.2 kg BMI 31.99 kg/m2 32.23 kg/m2 Remote Patient Monitoring: NONE Oxygen Needs: NO CHANGE from baseline supplemental oxygen needs DME Needs: NO DME needs identified Medications: New medication(s) added: Zofran Subjective: Condition Status: Improvement in symptoms but not at baseline Current Concerns: Spoke with Tarun, reports feeling a little better, has only vomited three times since yesterday, reports sipping on Gatorade and vomited a few hours later last time he vomited liquid was at 6:15am this morning, has not had any food since Wednesday. Does not feel weak/shakey, no nausea noted only gets nauseated few minutes prior to vomiting. Feels better when he is resting, gets ill when he is up and walking, denies any dizziness or light headedness, denies any diarrhea, no BM since Wednesday, denies pain, only hurts when he vomits, denies any headache Took Zofran 8mg this morning at 6am with some relief Disposition: Routed to [facility] and/or [facility] Team for further advice and Follow up call scheduled for tomorrow with [facility] Dental Practice Manager Future Visits Scheduled: Future Appointments-next 60 days Date/Time Provider Specialty Dept Phone 05/09/2024 11:15 AM Coordinator, [facility] [phone] 05/10/2024 11:00 AM [facility], [facility] [phone] 05/12/2024 2:30 PM (Arrive by 2:15 PM) Luiz Pina PA-C Cardiology [phone] 05/16/2024 9:45 AM (Arrive by 9:30 AM) [facility] PET INJECTION Radiology [phone] 05/16/2024 11:00 AM PET MOBILE [facility] Radiology [phone] 05/22/2024 9:50 AM Marshall Paez, DO Ophthalmology [phone] 05/22/2024 3:30 PM Regan Alejandro MD Urology Arrive at: Patient's Home [phone] 06/15/2024 5:30 PM Kelly Rosa, JULIA [facility] [phone] 06/24/2024 9:00 AM (Arrive by 8:45 AM) Sandra Goldstein MD Family Medicine [phone] 09/12/2024 10:30 AM (Arrive by 10:15 AM) Luiz Pina PA-C Cardiology [phone] 10/24/2024 10:30 AM Juliann, Nurse [facility] Ancillary [phone] Kim Rao RN documented in this encounter Plan of Treatment Upcoming Encounters Date Type Department Care Team (Late st Contact Info) Description 05/10/2024 11:30 AM EDT [facility] [address] [facility] [place] [address] Kelly Rosa, JULIA [address] [facility] [place] [address] 05/11/2024 9:15 AM EDT Scheduled Telephone [facility] [place], [facility] [address] [place] [address] Coordinator, [facility] [address] [facility] [place] [address] 05/12/2024 2:30 PM EDT Office Visit Cardiology, [facility] [address] [facility] [place] [address] Luiz Pina PA-C [address] [place] [address] 05/16/2024 9:45 AM EDT Imaging Radiology [facility] [place] [address] 05/22/2024 9:50 AM EDT Office Visit Ophthalmology, [facility] [address] [facility] [place] [address] Marshall Paez T, DO [address] [place] [address] 05/22/2024 3:30 PM EDT Telemedicine Urology, [facility] [address] [facility] [place] [address] Regan Alejandro MD [address] [place] [address] 06/15/2024 5:30 PM EDT Home Visit [facility], [facility] [address] [place] [address] Kelly Rosa, RN [address] [facility] [place] [address] 06/24/2024 9:00 AM EDT Office Visit Family Practice [facility] [place] [address] Sandra Goldstein MD [address] [place] [address] [place] [address] 09/12/2024 10:30 AM EST Office Visit Cardiology [address] [place] [address] Luiz Pina PA-C 132 [facility] [place] [address] 10/24/2024 10:30 AM EST Nurse Only Ancillary [address] [place] [address] [place], Nurse Annual Wellness [address] [place] [address] [place] [address] Scheduled Orders Name Type Priority Associated Diagnoses Orde r Schedule CBC WITH WBC DIFFERENTIAL Lab Routine Dehydration Expected: 05/10/2024 (Approximate), Expires: 05/09/2025 COMPREHENSIVE METABOLIC PANEL Lab Routine Dehydration Expected: 05/10/2024 (Approximate), Expires: 05/09/2025 Health Maintenance Due Date Last Done Comments Diabetic Foot Exam 04/21/2024 04/21/2023, 1 , 05/28/2020, Additional history exists COVID-19 Vaccine ( season) 2024 10/01/2022, 06/17/2021, 11/14/2020, Additional history exists Influenza Vaccine (FLU shot) (#1) 2024 04/27/2023, 06/27/2022, 06/05/2021, Additional history exists CKD HGB USE SMARTSET 29859 05/29/202405/29, 03/19/2023, 03/19/2023, Additional history exists CKD PHOS USE SMARTSET 51541 05/29/202402/2023, 10/01/2022, 12/04/2020, Additional history exists GFR 09/07/2024 03/07/2024, 10/21, 05/29/2023, Additional history exists HbA1c 09/07/2024 03/07/2024, 10/21, 05/29/2023, Additional history exists Adult Wellness Visit 10/20/2024 10/21/2023 Depression Screening 10/20/2024 10/21/2023 B-12 11/07/2024 11/08/2023, 02/04/2023, 12/04/2020, Additional history exists Albumin/Creatinine Ratio 11/08/202411/08/2 024, [...] this encounter Medical Devices Implanted Type Area Webbing Seamer Pound Net Device Identifier Shelf Expiration Date Model / Serial / Lot Sut Steel 6 [id number] - [id number] Implanted:Qty: 4 on 10/21/2015 by Riki Chan MD at [place] [facility] N/A: Chest JNJ : [employer] 07/22/2020 [id number] / / [id number] Marker Coronary Amgm-Sd - [id number] Implanted:Qty: 1 on 10/21/2015 by Riki Chan MD at [place] [facility] N/A: Chest [employer] 08/22/2018 AMGM-SD / / [id number] Marker Coronary Amgm-Sd - [id number] Implanted:Qty: 1 on 10/21/2015 by Riki Chan MD at [place] [facility] Chest [employer] 06/22/2018 AMGM-SD / / [id number] documented as of this encounter Visit Diagnoses Diagnosis Dehydration- Primary documented in this encounter Advance Directives * [...] and were consensually agreed upon. Care Teams Bleach Liquor Maker Relationship Specialty Start Date End Date Sandra Goldstein MD [address] [place] [address] [place] [address] PCP - General Family Medicine 02/22/19 documented as of this encounter
--- OUTSIDE RECORDS SUMMARY | 2024-05-13 11:40 | External Medical Summary | Summary of Care ---
Author Name Unknown Organization [facility] Address [address] [address] Phone [phone] Care Team Providers Care Communicable Disease Specialist Name Role Phone Sandra Goldstein MD Primary Care Prov ider Encounter Details Date Type Department Care Team (Late st Contact Info) Description 05/02/2024 2:45 PM EDT Office Visit Urology, [facility] [address] [facility] [place] [address] Regan Alejandro MD [address] [place] [address] Elevated prostate specific antigen (PSA)* Allergies Active Allergy Reactions Criticality Noted Date Comments Lisinopril Cough Low 12/21/2012 documented as of this encounter (statuses as of 05/02/2024) Medications Medication Sig Dispensed Refills Start Date [...] Oral Tablet (pLAVix)Indications: PAD (peripheral artery disease) ([facility]) Take 1 Tablet by mouth in the [...] Oral Capsule Take by mouth daily. Active [place] 3 1000 MG Oral Capsule Take by mouth daily. Active Levothyroxine Sodium 112 MCG Oral Tablet (Levoxyl)Indications :Hypothyroidism due to acquired atrophy of thyroid Take 1 Tablet by mouth daily first thing in the morning at least 30 min prior to breakfast or other meds 90 Tablet 3 04/11/2024 Active Nystatin 425777 UNIT/GM External CreamIndications:Can didal diaper dermatitis Apply [...] the morning. 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 Colon polyp 02/21/2019 documented as of this encounter (statuses as of 05/02/2024) Immunizations Name Administration Dates Next Due COVID-19 [...] as of this encounter Progress Notes * Regan Alejandro MD - 05/02/2024 2:45 PM EDT 83 yo male with elevated PSA here for biopsy. Patient notes some slowing of urinary stream recently. Elevated PSA: Patient is being seen for evaluation of an elevated PSA. Previous evaluation includes referral . Patient has been on tamsulosin. He reports slow stream. Urology Procedure Note Patient presents for transrectal ultrasound and prostate needle biopsy due to Elevated PSA. He understands risks of bleeding, infection, and urinary retention and did take oral antibiotic prior to procedure as instructed. The ultrasound probe was placed per rectum to view and measure the prostate. Please see the below TRUS interpretation report for details. Trans-Rectal Ultrasound Interpretation Report: We used the Koinify ultrasound unit with end fire rectal probe to perform real time ultrasound imaging of the prostate. The prostate is measured in bothaxial and longitudinal planes. 32.5 centimeters height by 44.3 centimeters width, by 43.1 centimeters longitudinal length (approximate total volume 32.43 cubic centimeters) PSA density is 0.642. Transition zone has calcifications on the right-hand side with a large nodule displacing the urethra on the left-hand side in the central prostate. There is no median adenoma. Seminal vesicles are normal bilaterally. The peripheral zone shows a nodule extending into the transition zone and anterior prostate from the left, worrisome for malignancy. There are no anechoic lesions. The prostate margins are smooth and uniform albeit distorted. The rectal wall is thin and unremarkable. The visualized bladder base shows a bladder wall of normal thickness. There is a moderate amount of residual urine present. Impression: 83-year-old male with left central prostate lesion worrisome for malignancy. Prostate needle biopsy: Ultrasound guidance was used for the placement of the needle to perform theprostate biopsies. A periprostatic block was performed with 10 mL 2% plain lidocaine in the usual fashion. Using transrectal real time ultrasound guidance, 12 core biopsies of the prostate were obtained without apparent bleeding. Two biopsies were taken from 6 sextants in the usual fashion (left and right base, midprostate and apex). Inadequate cores were repeated. All biopsy specimens were sent to pathology for formal evaluation. The patient tolerated the procedure well and ambulated independently to the waitingroom. Post biopsy instructions including light activity for the next 2 days and expected post biopsy course including hematuria, blood in the stool and semen are reviewed. He is to complete his antibiotic prophylaxis as prescribed. Worrisome signs and symptoms including fevers, chills, nausea, vomiting and the ability to void are reviewed and should prompt acute evaluation by a physician or ER. Patient should contact us before his follow-up with any questions or concerns. We will discuss his biopsy results at his follow up visit, which is confirmed today. Will start thepatient on bicalutamide for suspected prostate cancer to alleviate his recent onset voiding symptoms in the context of a suspected prostate cancer. Will see the patient back in a couple of weeks to check on the patient's progress. Will obtain staging if necessary if the patient's biopsy returned positive for high-grade malignancy. Regan Alejandro MD 1:03 PM 05/02/2024 documented in this encounter Nursing Notes * Yamileth Blackwell LPN - 05/02/2024 2:29 PM EDT Patient presents for prostate biopsy. Consent signed. Instructions reviewed, patient has follow prep. documented in this encounter Plan of Treatment Upcoming Encounters Date Type Department Care Team (Late st Contact Info) Description 05/03/2024 11:00 AM EDT Office Visit Ophthalmology, [address] [place] [address] Marshall Paez T, DO [address] [place] [address] 05/12/2024 2:30 PM EDT Office Visit Cardiology, [facility] 132 [facility] [place] [address] Luiz Pina PA-C 132 [facility] [place] [address] 05/15/2024 3:30 PM EDT Telemedicine Urology, [facility] 132 [facility] [place] [address] Regan Alejandro MD [address] [facility] [place] [address] 06/15/2024 5:30 PM EDT Home Visit [facility] [address] [facility] [place] [address] Kelly Rosa RN 132 [facility] [place] [address] 06/24/2024 9:00 AM EDT Office Visit Family Practice [facility] [address] [facility] [place] [address] Sandra Goldstein MD [address] [place] [address] [place] [address] 09/12/2024 10:30 AM EST Office Visit Cardiology [address] [place] [address] Luiz Pina PA-C 132 [facility] [place] [address] 10/24/2024 10:30 AM EST Nurse Only Ancillary [address] [place] [address] Juliann, Nurse Annual [address] [place] [address] Scheduled Orders Name Type Priority Associated Diagnoses Orde r Schedule SURGICAL PATHOLOGY Pathology Routine Elevated prostate specific antigen (PSA) Ordered: 05/02/2024 US ECHO TRANSRECTAL/PROSTATE Medical Imaging Routine Elevated prostate specific antigen (PSA) Expected: 05/02/2024, Expires: 06/01/2025 NEEDLE/PUNCH BIOPSY OF PROSTATE Procedures Routine Elevated prostate specific antigen (PSA) Ordered: 05/02/2024 US GUIDE NEEDLE PROSTATE BX Medical Imaging Routine Elevated prostate specific antigen (PSA) Expected: 05/02/2024, Expires: 06/01/2025 Health Maintenance Due Date Last Done Comments Diabetic Foot Exam 04/21/2024 04/21/2023, 1 , 05/28/2020, Additional history exists COVID-19 Vaccine ( season) 2024 10/01/2022, 06/17/2021, 11/14/2020, Additional history exists Influenza Vaccine (FLU shot) (#1) 2024 04/27/2023, 06/27/2022, 06/05/2021, Additional history exists CKD HGB USE SMARTSET 83645 05/29/202405/29, 03/19/2023, 03/19/2023, Additional history exists CKD PHOS USE SMARTSET 92063 05/29/2024/02/2023, 10/01/2022, 12/04/2020, Additional history exists GFR 09/07/2024 03/07/2024, 10/21, 05/29/2023, Additional history exists HbA1c 09/07/2024 03/07/2024, 10/21, 05/29/2023, Additional history exists Adult Wellness Visit 10/20/2024 10/21/2023 Depression Screening 10/20/2024 10/21/2023 B-12 11/07/2024 11/08/2023, 02/0 04/2023, 12/04/2020, Additional history exists Albumin/Creatinine Ratio [...] this encounter Medical Devices Implanted Type Area Curing Finisher Device Identifier Shelf Expiration Date Model / Serial / Lot Sut Steel 6 M654g - [id number] Implanted:Qty: 4 on 10/21/2015 by Riki Chan MD at [place] [facility] [place] N/A: Chest JNJ : [employer] 07/22/2020 M654G / / [id number] Marker Coronary Amgm-Sd - [id number] Implanted:Qty: 1 on 10/21/2015 by iRki Chan MD at [place] [facility] N/A: Chest [employer] 08/22/2018 AMGM-SD / / [id number] Marker Coronary Amgm-Sd - [id number] Implanted:Qty: 1 on 10/21/2015 by Riki Chan MD at [place] [facility] Chest [employer] 06/22/2018 AMGM-SD / / [id number] documented as of this encounter Visit Diagnoses Diagnosis Elevated prostate specific antigen (PSA)- Primary documented in this encounter Advance Directives [...] and were consensually agreed upon. Care Teams Communicable Disease Specialist Relationship Specialty Start Date End Date Sandra Goldstein MD [address] [place] [address] [place] [address] PCP - General Family Medicine 02/22/19 documented as of this encounter
--- OUTSIDE RECORDS SUMMARY | 2024-05-13 11:40 | External Medical Summary | Summary of Care ---
Author Name Unknown Organization [facility] Address [address] [address] Phone [phone] Care Team Providers Care Mover Helper Name Role Phone aSndra Goldstein MD Primary Care Prov ider Reason for Referral * Precert (Within 10 days (routine)) - Authorized Specialty Diagnoses / Procedures Referred By Contac t Referred To Contact Radiology Diagnoses Prostate cancer (HCC) Procedures PET CT SKULL BASE TO MID THIGH PSMA Regan Alejandro MD [address] [place] [id number] Referral ID Status Reason Start Date Expiration Date V isits Requested Visits Authorized [id number] Authorized 05/04/2024 [id number] Encounter Details Date Type Department Care Team (Late st Contact Info) Description 05/04/2024 Telephone Urology Jyala Villanueva [address] [place] [address] Regan Alejandro MD [address] [place] [address] Allergies Active Allergy Reactions Criticality Noted Date Comments Lisinopril Cough Low 12/21/2012 documented as of this encounter (statuses as of 05/05/2024) Medications Medication Sig Dispensed Refills Start Date [...] PAD (peripheral artery disease) ([facility]) Take 1 Tablet by mouth in [...] Oral Capsule Take by mouth daily. Active [place] 3 1000 MG Oral Capsule Take by mouth daily. Active Levothyroxine Sodium 112 MCG Oral Tablet (Levoxyl)Indications :Hypothyroidism due to acquired atrophy of thyroid Take 1 Tablet by mouth daily first thing in the morning at least 30 min prior to breakfast or other meds 90 Tablet 3 04/11/2024 Active Nystatin 788426 UNIT/GM External CreamIndications:Can didal diaper dermatitis Apply [...] at bedtime. 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 Patient was scheduled for PSMA on 05/16 at 9:30. Prep reviewed with pt PET CT SKULL BASE TO MID THIGH PSMA You may and are encouraged to drink water prior to your PET CT. You may take your medications. Wear comfortable clothes and remove any metal accessories prior to having your scan. Please allow 2-3 hours for your PET/CT appointment. Please give at least 24 hours notice if cancelling this appointment. Patient is scheduled for follow up to review results with you on 05/22/24 for a phone visit. FYI * Telephone Encounter - Regan Alejandro MD - 05/04/2024 4:32 PM EDT Patient's biopsy is positive for high-volume cancer. PSMA scan is ordered, ideally can be done prior to follow-up. Thanks, HM documented in this encounter Plan of Treatment Upcoming Encounters Date Type Department Care Team (Late st Contact Info) Description 05/12/2024 2:30 PM EDT Office Visit Cardiology, [facility] [address] [facility] [place] [address] Luiz Pina PA-C [address] [facility] [place] [address] 05/16/2024 9:45 AM EDT Imaging Radiology [facility] 1st Floor, [place] [address] [facility] [place] [address] 05/22/2024 9:50 AM EDT Office Visit Ophthalmology, [facility] [address] [facility] [place] [address] Marshall Paez T, DO [facility] [address] 05/22/2024 3:30 PM EDT Telemedicine Urology, [facility] [address] [facility] [place] [address] Regan Alejandro MD [address] [place] [address] 06/15/2024 5:30 PM EDT Home Visit [facility], [facility] [address] [place] [address] Kelly Rosa, JULIA [address] [facility] [place] [address] 06/24/2024 9:00 AM EDT Office Visit Family Practice [facility] [address] [place] [address] Sandra Goldstein MD [address] [place] [address] [place] [address] 09/12/2024 10:30 AM EST Office Visit Cardiology [address] [place] [address] Luiz Pina PA-C [address] [place] [address] 10/24/2024 10:30 AM EST Nurse Only Ancillary [address] [place] [address] [place], Nurse [facility] [address] [place] [address] [place] [address] Scheduled Orders Name Type Priority Associated Diagnoses Orde r Schedule PET CT SKULL BASE TO MID THIGH PSMA Medical Imaging Routine Prostate cancer (HCC) Expected: 05/04/2024, Expires: 06/03/2025 Health Maintenance Due Date Last Done Comments Diabetic Foot Exam 04/21/2024 04/21/2023, 1 , 05/28/2020, Additional history exists COVID-19 Vaccine ( season) 2024 10/01/2022, 06/17/2021, 11/14/2020, Additional history exists Influenza Vaccine (FLU shot) (#1) 2024 04/27/2023, 06/27/2022, 06/05/2021, Additional history exists CKD HGB USE SMARTSET 01799 05/29/202405/29, 03/19/2023, 03/19/2023, Additional history exists CKD PHOS USE SMARTSET 78055 05/29/2024 10/0 02/2023, 10/01/2022, 12/04/2020, Additional history exists GFR [...] this encounter Medical Devices Implanted Type Area Roofing Apprentice Device Identifier Shelf Expiration Date Model / Serial / Lot Sut Steel 6 M654g - [id number] Implanted:Qty: 4 on 10/21/2015 by Riki Chan [place] [facility] Chest JNJ : [employer] 07/22/2020 M654G / / [id number] Marker Coronary Amgm-Sd - [id number] Implanted:Qty: 1 on 10/21/2015 by Riki Chan MD [place] [facility]/A: Chest [employer] 08/22/2018 AMGM-SD / / [id number] Marker Coronary Amgm-Sd - [id number] Implanted:Qty: 1 on 10/21/2015 by Riki Chan MD [place] [facility] Chest [employer] 06/22/2018 [facility] / / [id number] documented as of this encounter Visit Diagnoses Diagnosis Prostate cancer (HCC)- Primary Malignant neoplasm of prostate documented in this encounter Advance Directives * [...] and were consensually agreed upon. Care Teams Mover Helper Relationship Specialty Start Date End Date Sandra Goldstein MD [address] [place] [address] [place] [address] PCP - General Family Medicine 02/22/19 documented as of this encounter
--- OUTSIDE RECORDS SUMMARY | 2024-05-13 11:40 | External Medical Summary | Summary of Care ---
Author Name Unknown Organization [facility] Address [address] [place] [address] Phone [phone] Care Team Providers Care Spray Drier Operator Helper Name Role Phone Sandra Goldstein MD Primary Care Prov ider Reason for Visit * Reason Comments Procedure Entropion repair RLL Encounter Details Date Type Department Care Team (Late st Contact Info) Description 05/03/2024 11:00 AM EDT Office Visit Ophthalmology, [facility] [address] [facility] [place] [address] Marshall Paez, DO [address] [place], [place] [id number] Spastic entropion of right eye* Allergies Active Allergy Reactions Criticality Noted Date Comments Lisinopril Cough Low 12/21/2012 documented as of this encounter (statuses as of 05/03/2024) Medications Medication Sig Dispensed Refills Start Date [...] Oral Capsule Take by mouth daily. Active [place] 3 1000 MG Oral Capsule Take by mouth daily. Active Levothyroxine Sodium 112 MCG Oral Tablet (Levoxyl)Indications :Hypothyroidism due to acquired atrophy of thyroid Take 1 Tablet by mouth daily first thing in the morning at least 30 min prior to breakfast or other meds 90 Tablet 3 04/11/2024 Active Nystatin 652165 UNIT/GM External CreamIndications:Can didal diaper dermatitis Apply [...] powderIndications:Tinea cruris TOP BID (.AM/PM) 06/10/2021 Active lidocaine-epinephrine 2 %-1:408368 inj 100 mgIndications:Spastic entropion of right eye 100 mg SC ONCE 05/03/2024 05/03/2024 Ac tive Erythromycin ophthalmic ointmentIndications:Spa stic entropion of right eye RT EYE ONCE 05/03/2024 05/03/2024 Active documented as of this encounter (statuses as of 05/03/2024) Active Problems Problem Noted Date Diagnosed Date [...] as of this encounter (statuses as of 05/03/2024) Resolved Problems Problem Noted Date Diagnosed Date [...] CHF 05/26/2019 05/22/2022 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 [...] as of this encounter (statuses as of 05/03/2024) Immunizations Name Administration Dates Next Due COVID-19 [...] as of this encounter Progress Notes * Marshall Paez DO - 05/03/2024 10:20 AM EDT Office Procedure Note Earl Caalstler 05/03/2024 Pre/Post Op Dx: Spastic entropion of right lower eyelid Procedure: Entropion repair of right lower eyelid using lateral tarsal strip and quickert suture Surgeon: Marshall Paez DO Assistants: Michelle Alejandro PA-C NO AVAILABLE RESIDENT TO ASSIST Needed for exposure assistance Anesthesia: Local 2% Lidocaine with epinephrine Complications: None EBL: minimal Drains: None IVF: None Specimen: none Preoperative Evaluation: Patient presented with foreign body sensation and redness of his right eye. On evaluation, he was noted to have a spastic entropion of the right lower eyelid. Patient is now for an entropion repair of right lower eyelid. Operative Note: The patient was brought to the procedure room and identified as Earl Garcia and the procedure to be performed was confirmed with the patient. After informed consent was obtainedthe right lateral upper and lower eyelids were infiltrated with 2% lidocaine with epinephrine. The patient was then prepped and draped in the usual sterile fashion. Attention was then turned to the lower eyelid where a lateral canthotomy and inferior cantholysis was performed. A lateral tarsal strip was then fashioned. A 4-0 double armed chromic suture was passed from the inferior fornix anteriorly and superiorly exiting inferior to the lashes and fixated. The lateral portion of the eyelids were then approximated to the lateral orbital rim using a double armed 4-0 prolene suture. The lateralcanthal angle was reformed with a 6-0 chromic suture. The skin defect in the lateral canthus was closed with the 6-0 chromic suture. Antibiotic ointment was applied. The procedure was performed without complications. The patient tolerated the procedure well. Patient was discharged in good condition. Written and verbal discharge instructions were given to the patient. Marshall aPez DO documented in this encounter Nursing Notes * Yecenia Fung LPN - 05/03/2024 9:21 AM EDT Patient admitted to procedure room at 9:21 AM and identified by full name and date of Is patient on blood thinners? yes eliquis 2.5mg BID ( held for 4 days) Plavix 75mg (held for 5 days). Is patient hypertensive? no, if yes, did you take you blood pressure medication today? yes. The operative team (Dr. Paez), along with Mr. Garcia, reviewed that he presents today for entropion repair of right lower eyelid. Mr. Garcia agrees with the procedure and operative site. The correct operative site was marked and verified by the operative team. Mr. Garcia signed the surgical consent form as witnessed by the operative team. Pre op vitals BP 109/70 P 87 Patient prepped and drapped by Dr. Paez.Patient instructed to visit cardiology after procedure today for transmission of device. Patient agreeable to same. documented in this encounter Plan of Treatment Upcoming Encounters Date Type Department Care Team (Late st Contact Info) Description 05/12/2024 2:30 PM EDT Office Visit Cardiology, [facility] [address] [facility] [place] [address] Luiz Pina PA-C [address] [place] [address] 05/15/2024 3:30 PM EDT Telemedicine Urology, [facility] [address] [facility] [place] [address] Regan Alejandro MD [address] [place] [address] 05/22/2024 9:50 AM EDT Office Visit Ophthalmology, [facility] [address] [facility] [place] [address] Marshall Paez T, DO [address] [place] [address] 06/15/2024 5:30 PM EDT [facility] Visit [facility], [facility] [address] [facility] [place] [address] Kelly Rosa, RN [address] [facility] [place] [address] 06/24/2024 9:00 AM EDT Office Visit Family Practice [facility] [address] [facility] [place] [address] Sandra Goldstein MD [address] [place] [address] [place] [address] 09/12/2024 10:30 AM EST Office Visit Cardiology [address] [place] [address] Luiz Pina PA-C [address] [facility] [place] [address] 10/24/2024 10:30 AM EST Nurse Only Ancillary [address] [place] [address] Juliann, Nurse [address] [place] [address] Health Maintenance Due Date Last Done Comments Diabetic Foot Exam 04/21/2024 04/21/2023, 1 , 05/28/2020, Additional history exists COVID-19 Vaccine ( season) 2024 10/01/2022, 06/17/2021, 11/14/2020, Additional history exists Influenza Vaccine (FLU shot) (#1) 2024 04/27/2023, 06/27/2022, 06/05/2021, Additional history exists CKD HGB USE SMARTSET 99771 05/29/202405/29, 03/19/2023, 03/19/2023, Additional history exists CKD PHOS USE SMARTSET 47018 05/29/202402/2023, 10/01/2022, 12/04/2020, Additional history exists GFR [...] this encounter Medical Devices Implanted Type Area Employment Assistant Device Identifier Shelf Expiration Date Model / Serial / Lot Sut [place] 6 M654g - [id number] Implanted:Qty: 4 on 10/21/2015 by Riki Chan MD at OR [facility] [place] N/A: Chest JNJ : [employer] 07/22/2020 M654G / / [id number] Marker Coronary Amgm-Sd - [id number] Implanted:Qty: 1 on 10/21/2015 by Riki Chan MD at OR [facility] N/A: Chest [employer] 08/22/2018 AM[facility]-SD / / [id number] Marker Coronary Amgm-Sd - [id number] Implanted:Qty: 1 on 10/21/2015 by Riki Chan MD at OR [facility] [place] Chest [employer] 06/22/2018 [facility]-SD / / [id number] documented as of this encounter Visit Diagnoses Diagnosis Spastic entropion of right eye- Primary Spastic entropion documented in this encounter Advance Directives * [...] and were consensually agreed upon. Care Teams Spray Drier Operator Helper Relationship Specialty Start Date End Date Sandra Goldstein MD [address] [place] [address] [place] [id number] PCP - General Family Medicine 02/22/19 documented as of this encounter
--- OUTSIDE RECORDS SUMMARY | 2024-05-13 11:40 | External Medical Summary | Summary of Care ---
Author Name Unknown Organization [facility] Address [address] [facility] [place] [address] Phone [phone] Care Team Providers Care Sign Writer Hand Name Role Phone Sandra Goldstein MD Primary Care Prov ider Reason for Visit * Reason Comments [facility]: Maintenance Encounter Details Date Type Department Care Team (Late st Contact Info) Description 04/28/2024 8:30 AM EDT Home Visit [facility], [facility] 132 [facility] [place] [address] Kelly Rosa, JULIA [address] [facility] [place] [address] Allergies Active Allergy Reactions Criticality Noted Date Comments Lisinopril Cough Low 12/21/2012 documented as of this encounter (statuses as of 04/28/2024) Medications Medication Sig Dispensed Refills Start Date [...] Tablet (pLAVix)Indications: PAD (peripheral artery disease) ([facility]) Take 1 Tablet by mouth in [...] Oral Capsule Take by mouth daily. Active [place] 3 1000 MG Oral Capsule Take by mouth daily. Active Levothyroxine Sodium 112 MCG Oral Tablet (Levoxyl)Indications :Hypothyroidism due to acquired atrophy of thyroid Take 1 Tablet by mouth daily first thing in the morning at least 30 min prior to breakfast or other meds 90 Tablet 3 04/11/2024 Active Nystatin 644741 UNIT/GM External CreamIndications:Can didal diaper dermatitis Apply topically to affected area 2 times a day for two weeks. 30 g 5 04/11/2024 Active Ciprofloxacin HCl 500 MG Oral Tablet (Cipro) Take 1 Tablet by mouth in the morning and 1 Tablet before bedtime. Start day prior to biopsy. 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 [...] as of this encounter (statuses as of 04/28/2024) Immunizations Name Administration Dates Next Due COVID-19 [...] Sign Reading Time Taken Comments Blood Pressure 92/62 04/28/2024 9:02 AM EDT Pulse 70 04/28/2024 9:02 AM EDT Temperature 36.5 C (97.7 F) 04/28/2024 9:02 AM ED T Respiratory Rate 18 04/28/2024 9:02 AM EDT Oxygen Saturation 95% 04/28/2024 9:02 AM EDT Inhaled Oxygen Concentration - - [...] Progress Notes * Kelly Rosa RN - 04/28/2024 8:49 AM EDT [facility] [employer] Visit Date: 04/28/2024 Time: 8:49 AM Name: Earl Garcia : 1940 Current Concerns: Patient seen for follow up- Medical history- Afib, CHF, CAD, BHUPINDER- does not use Bipap Prostate level high- scheduled for biopsy at [facility] next Wednesday. Does report his urine stream is not real good. Denies UTI symptoms. Bowels regular- " if I eat." VS wnl Lungs clear bilaterally- slightly diminished Sob with exertion Edema noted to ble- tubigrips intact- has wounds. Changes own dressing every other day- monitored by wound clinc/MD Appetite- eats once a day Taking fluids well. Denies discomfort at present Problems/Symptoms: Review of Systems Constitutional: Negative. HENT: Negative. Respiratory: Positive for shortness of breath. Cardiovascular: Positive for leg swelling. Gastrointestinal: Negative. Genitourinary: Negative. Musculoskeletal: Positive for gait problem. Skin: Negative. Hematological: Bruises/bleeds easily. Psychiatric/Behavioral: Negative. Physical Exam: BP 92/62 (BP Site: Left Arm, BP Position: Sitting, BP Cuff Size: Regular) | Pulse 70 | Temp 36.5 C (97.7 F) (Tympanic) | Resp 18 | SpO2 95% Pain 0 Physical Exam Constitutional: Appearance: Normal appearance. Cardiovascular: Rate and Rhythm: Rhythm irregular. Pulses: Normal pulses. Pulmonary: Effort: [...] and Affect: Mood normal. Behavior: Behavior normal. MAH-10 Completed this Visit: No. No falls since last visit Treatment/Plan: Wound MD/Clinic as indicated Elevate ble- edema Low na diet Weigh daily- keep log Continue medications as prescribed Keep all upcoming MD appointments Fall precautions- walker prn RN CM follow up in 8 weeks Home Interventions Provided: Reinforced current Plan of Care, including self-management and medication regimen Patient's Goals of Care: Walk Take care of myself Stay out of a penitentiary Patient's 'Red Flags': Increase 2-3 lbs/24 hour or 3-5lb in 5 days Increase shortness of breath Pain in toes/hands- Gout symptoms Patient Needs to Remember: Call [facility] at with any new or worsening health concerns or problems, red flag symptoms. Referrals Needed: N/a Follow Up: Is there cellular connectivity/connectivity in the home? Yes Does the patient have internet in the home? Yes Patient encouraged to call the intake phone number for all urgent but not emergent issues. Scheduled to follow up with patient in 8 weeks. Kelly Caro RN 04/28/2024 8:49 AM documented in this encounter Plan of Treatment Upcoming Encounters Date Type Department Care Team (Late st Contact Info) Description 05/02/2024 2:45 PM EDT Office Visit Urology, [facility] [address] [facility] [place] [address] Regan Alejandro MD [address] [place] [address] 05/03/2024 11:00 AM EDT Office Visit Ophthalmology, [facility] [address] [facility] [place] [address] Marshall Paez, DO [address] [place] [address] 05/12/2024 2:30 PM EDT Office Visit Cardiology, [facility] [address] [facility] [place] [address] Luiz Pina, PAGloria [address] [facility] [place] [address] 06/15/2024 5:30 PM EDT Home Visit [facility] [address] [place] [address] Kelly Rosa, RN [address] [facility] [place] [address] 06/24/2024 9:00 AM EDT Office Visit Family Practice [facility] [address] [facility] [place] [address] Sandra Goldstein MD [address] [place] [address] [place] [address] 09/12/2024 10:30 AM EST Office Visit Cardiology [address] [place] [address] Luiz Pina, PARaheemC [address] [facility] [place] [address] 10/24/2024 10:30 AM EST Nurse Only Ancillary [address] [place] [address] [place], Nurse [address] [place] [address] Health Maintenance Due Date Last Done Comments Diabetic Foot Exam 04/21/2024 04/21/2023, 1 , 05/28/2020, Additional history exists COVID-19 Vaccine ( season) 2024 10/01/2022, 06/17/2021, 11/14/2020, Additional history exists Influenza Vaccine (FLU shot) (#1) 2024 04/27/2023, 06/27/2022, 06/05/2021, Additional history exists CKD HGB USE SMARTSET 13224 05/29/202405/29, 03/19/2023, 03/19/2023, Additional history exists CKD PHOS USE SMARTSET 13937 05/29/202402/2023, 10/01/2022, 12/04/2020, Additional history exists GFR [...] this encounter Medical Devices Implanted Type Area Tunneller Device Identifier Shelf Expiration Date Model / Serial / Lot Sut Steel 6 M654g - [id number] Implanted:Qty: 4 on 10/21/2015 by R[place] [facility] [place] Chest JNJ : [employer] 07/22/2020 M654G / / [id number] Marker Coronary Amgm-Sd - [id number] Implanted:Qty: 1 on 10/21/2015 by Riki Chan MD [place] [facility] [place]A: Chest [employer] 08/22/2018 [facility] / / [id number] Marker Coronary Amgm-Sd - [id number] Implanted:Qty: 1 on 10/21/2015 by Riki Chan MD [place] [facility] [place] Chest [employer] 06/22/2018 [facility] / / [id number] documented as of this encounter Advance Directives [...] and were consensually agreed upon. Care Teams Sign Writer Hand Relationship Specialty Start Date End Date Sandra Goldstein MD [address] [place] [address] [place] [id number] PCP - General Family Medicine 02/22/19 documented as of this encounter
--- OUTSIDE RECORDS SUMMARY | 2024-05-13 11:40 | External Medical Summary | Summary of Care ---
Author Name Unknown Organization [facility] Address [address] [place] [address] Phone [phone] Care Team Providers Care Lymphedema Therapist Name Role Phone Sandra Goldstein MD Primary Care Prov ider Reason for Visit * Reason Onset Date Comments [facility]: Acute 05/08/2024 Encounter Details Date Type Department Care Team (Late st Contact Info) Description 05/08/2024 Telephone [facility], [facility] [address] [facility] [place] [address] Kalyn Sarmiento RN [address] [facility] [place] [address] [facility]: Acute Allergies Active Allergy Reactions Criticality Noted Date Comments Lisinopril Cough Low 12/21/2012 documented as of this encounter (statuses as of 05/08/2024) Medications Medication Sig Dispensed Refills Start Date [...] PAD (peripheral artery disease) ([facility]) Take 1 Tablet by mouth in the [...] Oral Capsule Take by mouth daily. Active [place] 3 1000 MG Oral Capsule Take by mouth daily. 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 Will follow home visit. E * Telephone Encounter - Kalyn Sarmiento RN - 05/08/2024 10:44 AM EDT [facility] outreach director Acute Call Date: 05/08/2024 Time: 10:44 AM Name: Earl Garcia : 1940 Caller: patient Chief Complaint Patient presents with [facility]: Acute HPI: Earl Garcia is a 83 year old male that is calling [facility] Intake to report nausea and vomiting x 2 days. Nursing Assessment: Patient's chief complaint for this call: Communication Note Name: Earl Garcia Situation: 83 yr old pt. Lives in [place]. Calling to report vomiting x 2 days. Background: AFIB, CHF, AICD, DM, BHUPINDER, hypothyroidism, IA, CABGx 3, CVA Assessment: reports vomiting that started on sat night. Pt vomited about every 3 hrs. Pt not eatingor drinking. No blood in vomitus. Reports decreased urine output. Reports dry mouth and lips. Denies headache. SOB at baseling Pt is afebrile. Denies chest pain Some mild abd discomfort to the lower mid center of abdomen. No diarrhea, Last BM Wednesday night. No Zofran available Recommendation: Home visit today. Has pain Pain level: 2 Location: lower abd center pain Quality of Pain: discomfort Does the pain radiate: No Baseline Assessment Able to performing ADLs at baseline (walking, daily tasks, etc.): No Chief Complaint is related to a chronic condition: No Patient prescribed oxygen? Yes, 1L/min bled through bipap, doesn't use bipap Patient has been ordered DME equipment (assistive devices, respiratory equipment, etc.): No Medication Reconciliation: (See medication list) Received flu shot this season: Unknown Taking medication as ordered: Yes Medications ordered/taking to treat reason for call: No Heart failure symptoms: No COPD exacerbation symptoms: No Reinforcement Education: Increase PO fluid intake taking sips as tolerated Dickerson diet Treatment/Plan: (need to report) Level of call: Acute Appointment scheduled for same day: Yes Residential Sales Representative Provider Name: Kelly Rosa RN Call back instructions provided to patient. documented in this encounter Plan of Treatment Upcoming Encounters Date Type Department Care Team (Late st Contact Info) Description 05/08/2024 12:30 PM EDT Home Visit [facility], [place] [address] [place] [address] Kelly Rosa RN [address] [place] [address] 05/09/2024 11:15 AM EDT Scheduled Telephone [facility], [facility] [address] [place] [address] Coordinator, [facility] [address] [place] [address] 05/10/2024 11:00 AM EDT Scheduled Telephone [facility], [facility] 132 [facility] [place] [address] Coordinator, [facility] [place] [address] 05/12/2024 2:30 PM EDT Office Visit Cardiology, [facility] 132 [facility] [place] [address] Luiz Pina PA-C 132 [facility] [place] [address] 05/16/2024 9:45 AM EDT [facility] [address] [facility] [place] [address] 05/22/2024 9:50 AM EDT Office Visit Ophthalmology, [facility] [address] [facility] [place] [address] Marshall Paez, DO [address] [place] [address] 05/22/2024 3:30 PM EDT Telemedicine Urology, [facility] 132 [facility] [place] [address] Regan Alejandro MD [address] [place] [address] 06/15/2024 5:30 PM EDT Home Visit [facility], [facility] 132 [facility] [place] [address] Kelly Rosa, JULIA 132 [facility] [place] [address] 06/24/2024 9:00 AM EDT Office Visit Family Practice [facility] 132 [facility] [place] [address] Sandra Goldstein MD [address] [place] [address] [place] [address] 09/12/2024 10:30 AM EST Office Visit Cardiology [address] [place] [address] Luiz Pina PA-C [address] [place] [address] 10/24/2024 10:30 AM EST Nurse Only Ancillary [address] [place] [address] Juliann, Nurse Annual Wellness [address] [place] [address] [place] [address] Health Maintenance Due Date Last Done Comments Diabetic Foot Exam 04/21/2024 04/21/2023, 1 , 05/28/2020, Additional history exists COVID-19 Vaccine ( season) 2024 10/01/2022, 06/17/2021, 11/14/2020, Additional history exists Influenza Vaccine (FLU shot) (#1) 2024 04/27/2023, 06/27/2022, 06/05/2021, Additional history exists CKD HGB USE SMARTSET 25039 05/29/202405/29, 03/19/2023, 03/19/2023, Additional history exists CKD PHOS USE SMARTSET 81872 05/29/202402/2023, 10/01/2022, 12/04/2020, Additional history exists GFR 09/07/2024 03/07/2024, 10/21, 05/29/2023, Additional history exists HbA1c 09/07/2024 03/07/2024, 10/21, 05/29/2023, Additional history exists Adult Wellness Visit 10/20/2024 10/21/2023 Depression Screening 10/20/2024 10/21/2023 B-12 11/07/2024 11/08/2023, 0 04/2023, 12/04/2020, Additional history exists Albumin/Creatinine Ratio [...] this encounter Medical Devices Implanted Type Area Sharepoint Solutions Developer Device Identifier Shelf Expiration Date Model / Serial / Lot Sut Steel 6 M654g - [id number] Implanted:Qty: 4 on 10/21/2015 by Riki Chan MD at [place] [facility] [place] N/A: Chest JNJ : [employer] 07/22/2020 M654G / / [id number] Marker Coronary Amgm-Sd - [id number] Implanted:Qty: 1 on 10/21/2015 by Riki Chan MD at OR [facility] [place] N/A: Chest [employer] 08/22/2018 AMGM-SD / / [id number] Marker Coronary Amgm-Sd - [id number] Implanted:Qty: 1 on 10/21/2015 by Riki Chan MD at [place] [facility] [place] Chest [employer] 06/22/2018 AMGM-SD / / [id number] documented as of this encounter Advance Directives [...] and were consensually agreed upon. Care Teams Lymphedema Therapist Relationship Specialty Start Date End Date Sandra Goldstein MD [address] [place] [address] [place] [address] PCP - General Family Medicine 02/22/19 documented as of this encounter
--- OUTSIDE RECORDS SUMMARY | 2024-05-13 11:40 | External Medical Summary | Summary of Care ---
Author Name Unknown Organization [facility] Address [address] [facility] [address] Phone [phone] Care Team Providers Care Narcotics And/Or Vice Detective Name Role Phone Sandra Goldstein MD Primary Care Prov ider Encounter Details Date Type Department Care Team (Late st Contact Info) Description 05/08/2024 Orders Only [facility], [facility] [address] [facility] [place] [address] Tyler Hale MD [address] [facility] [place] [address] Dehydration* Allergies Active Allergy Reactions Criticality Noted [...] Oral Tablet (pLAVix)Indications: PAD (peripheral artery disease) ([facility]) Take 1 Tablet by mouth in the [...] below 150/90,Chronic ischemic heart disease,VF (ventricular fibrillation) ([facility]) Take 1 Tablet by mouth 2 times [...] Oral Capsule Take by mouth daily. Active [place] 3 1000 MG Oral Capsule Take by mouth daily. Active Levothyroxine Sodium 112 MCG Oral Tablet (Levoxyl)Indications :Hypothyroidism due to acquired atrophy of thyroid Take 1 Tablet by mouth daily first thing in the morning at least 30 min prior to breakfast or other meds 90 Tablet 3 04/11/2024 Active Nystatin 188574 UNIT/GM External CreamIndications:Can didal diaper dermatitis Apply [...] Start Date End Date Status Nystatin (Nystop) powderIndications:Ximena a cruris TOP BID (.AM/PM) 06/10/2021 Active NSS 0.9% 1,000 mL bolus infusionIndications:De hydration 1000 mL IV ONCE 05/08/2024 05/09/2024 Active ondansetron (Zofran) inj 4 mgIndications:Dehydrat ion 4 mg IV PUSH ONCE 05/08/2024 05/08/2024 Ended documented as of this encounter (statuses [...] CHF 05/26/2019 05/22/2022 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 artist 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 [...] mRNA, LNP-s, No Pre serve, 2-Dose Series (Alchip) 06/17/2021,11/14/2020,10/24/2020 Covid-19, Mrna, Lnp-s, Pf, B ivalent, [...] No 11/05/2015 documented as of this encounter Plan of Treatment Upcoming Encounters Date Type Department Care Team (Late st Contact Info) Description 05/09/2024 11:15 AM EDT Scheduled Telephone [facility] [address] [place] [address] Coordinator, [facility] [address] [place] [address] 05/10/2024 11:00 AM EDT Scheduled Telephone [facility] [address] [place] [address] Coordinator, [facility] [address] [place] [address] 05/12/2024 2:30 PM EDT Office Visit Cardiology, [facility] [address] [place] [address] Luiz Pina PA-C [address] [place] [address] 05/16/2024 9:45 AM EDT Imaging Radiology [facility] [place] [address] 05/22/2024 9:50 AM EDT Office Visit Ophthalmology, [facility] [place] [address] Marshall Paez T, DO 16 [place] [address] 05/22/2024 3:30 PM EDT Telemedicine Urology, [facility] [place] [address] Regan Alejandro MD [address] [place] [address] 06/15/2024 5:30 PM EDT Home Visit [facility], [facility] [address] [place] [address] Kelly Rosa RN 132 [facility] [place] [address] 06/24/2024 9:00 AM EDT Office Visit Family Practice [facility] [place] [address] Sandra Goldstein MD [address] [place] [address] [place] [address] 09/12/2024 10:30 AM EST Office Visit Cardiology [address] [place] [address] Luiz Pina, JODI [address] [place] [address] 10/24/2024 10:30 AM EST Nurse Only Ancillary [address] [place] [address] [facility], Nurse [address] [place] [address] Health Maintenance Due Date Last Done Comments Diabetic Foot Exam 04/21/2024 04/21/2023, 1 , 05/28/2020, Additional history exists COVID-19 Vaccine ( season) 2024 10/01/2022, 06/17/2021, 11/14/2020, Additional history exists Influenza Vaccine (FLU shot) (#1) 2024 04/27/2023, 06/27/2022, 06/05/2021, Additional history exists CKD HGB USE SMARTSET 28474 05/29/202405/29, 03/19/2023, 03/19/2023, Additional history exists CKD PHOS USE SMARTSET 98585 05/29/202402/2023, 10/01/2022, 12/04/2020, Additional history exists GFR 09/07/2024 03/07/2024, 10/21, 05/29/2023, Additional history exists HbA1c 09/07/2024 03/07/2024, 10/21, 05/29/2023, Additional history exists Adult Wellness Visit 10/20/2024 10/21/2023 Depression Screening 10/20/2024 10/21/2023 B-12 11/07/2024 11/08/2023, 02/0 04/2023, 12/04/2020, Additional history exists Albumin/Creatinine Ratio 11/08/2024 03/2 [...] this encounter Medical Devices Implanted Type Area Exploration Engineer Device Identifier Shelf Expiration Date Model / Serial / Lot Sut Steel 6 M654g - [id number] Implanted:Qty: 4 on 10/21/2015 by Riki Chan MD at [place] [facility] N/A: Chest JNJ : [employer] 07/22/2020 M654G / / [id number] Marker Coronary Amgm-Sd - [id number] Implanted:Qty: 1 on 10/21/2015 by Riki Chan MD at [place] [facility] N/A: Chest [employer] 08/22/2018 AMGM-SD / / [id number] Marker Coronary Amgm-Sd - [id number] Implanted:Qty: 1 on 10/21/2015 by Riki Chan MD at [place] [facility] Chest [employer] 06/22/2018 AMGM-SD / / [id number] documented as of this encounter Visit Diagnoses [...] and were consensually agreed upon. Care Teams Narcotics And/Or Vice Detective Relationship Specialty Start Date End Date Sandra Goldstein MD [address] [place] [address] [place] [address] PCP - General Family Medicine 02/22/19 documented as of this encounter
--- OUTSIDE RECORDS SUMMARY | 2024-05-13 11:40 | External Medical Summary | Summary of Care ---
Author Name Unknown Organization [facility] Address [address] [facility] [address] Phone [phone] Care Team Providers Care Clinical Administrative Coordinator Name Role Phone Sandra Goldstein MD Primary Care Prov ider Encounter Details Date Type Department Care Team (Late st Contact Info) Description 05/02/2024 2:45 PM EDT Office Visit Urology, [facility] [address] [facility] [place] [address] Regan Alejandro MD [address] [place] [...] Oral Tablet (pLAVix)Indications: PAD (peripheral artery disease) ([facility]) Take 1 Tablet by mouth [...] Oral Capsule Take by mouth daily. Active [place] 3 1000 MG Oral Capsule Take by mouth daily. Active Levothyroxine Sodium 112 MCG Oral Tablet (Levoxyl)Indications :Hypothyroidism due to acquired atrophy of thyroid Take 1 Tablet by mouth daily first thing in the morning at least 30 min prior to breakfast or other meds 90 Tablet 3 04/11/2024 Active Nystatin 167206 UNIT/GM External CreamIndications:Can didal diaper dermatitis Apply [...] Trans-Rectal Ultrasound Interpretation Report: We used the QPD ultrasound unit with end fire rectal probe [...] 05/03/2024 11:00 AM EDT Office Visit Ophthalmology, [address] [place] [address] Marshall Paez T, DO [address] [place] [address] 05/12/2024 2:30 PM EDT Office Visit Cardiology, [facility] 132 [facility] [place] [address] Luiz Pina PA-C 132 [facility] [place] [address] 05/15/2024 3:30 PM EDT Telemedicine Urology, [facility] 132 [facility] [place] [address] Regan Alejandro MD 27 [facility] [place] [address] 06/15/2024 5:30 PM EDT Home Visit [facility] 132 [facility] [place] [address] Kelly Rosa RN 132 [facility] [place] [address] 06/24/2024 9:00 AM EDT Office Visit Family Practice [facility] 132 [facility] [place] [address] Sandra Goldstein MD [address] [place] [address] [place] [address] 09/12/2024 10:30 AM EST Office Visit Cardiology [address] [place] [address] Luiz Pina PA-C 132 [facility] [place] [address] 10/24/2024 10:30 AM EST Nurse Only Ancillary [address] [place] [address] Juliann, Nurse Annual [address] [place] [address] Scheduled Orders Name Type Priority Associated Diagnoses [...] Additional history exists CKD HGB USE SMARTSET 60399 05/29/202405/29, 03/19/2023, 03/19/2023, Additional history exists CKD PHOS USE SMARTSET 56161 05/29/2024/02/2023, 10/01/2022, 12/04/2020, Additional history exists GFR [...] this encounter Medical Devices Implanted Type Area Benchroom Shop Optician Device Identifier Shelf Expiration Date Model / Serial / Lot Sut Steel 6 M654g - [id number] Implanted:Qty: 4 on 10/21/2015 by Riki Chan MD at OR [facility] N/A: Chest JNJ : [employer] 07/22/2020 M654G / / [id number] Marker Coronary Amgm-Sd - [id number] Implanted:Qty: 1 on 10/21/2015 by Riki Chan MD at OR [facility] N/A: Chest [employer] 08/22/2018 AMGM-SD / / [id number] Marker Coronary Amgm-Sd - [id number] Implanted:Qty: 1 on 10/21/2015 by Riki Chan MD at [place] [facility] Chest [facility] BI[facility]EDICAL 06/22/2018 AMGM-SD / / [id number] documented as of this encounter Visit Diagnoses [...] and were consensually agreed upon. Care Teams Clinical Administrative Coordinator Relationship Specialty Start Date End Date Sandra Goldstein MD [address] [place] [address] [place] [address] PCP - General Family Medicine 02/22/19 documented as of this encounter
--- OUTSIDE RECORDS SUMMARY | 2024-05-13 11:40 | External Medical Summary | Summary of Care ---
Author Name Unknown Organization [facility] Address [address] [facility] [place] [address] Phone [phone] Care Team Providers Care Publications Distribution Clerk Name Role Phone Sandra Goldstein MD Primary Care Prov ider Encounter Details Date Type Department Care Team (Late st Contact Info) Description 05/08/2024 12:30 PM EDT [facility] [address] [facility] [place] [address] Kelly Rosa, RN 132 [facility] [place] [address] Allergies Active Allergy Reactions Criticality Noted Date [...] Capsule Take by mouth daily. Active [place] 3 1000 MG Oral Capsule Take by mouth daily. 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 Decrease in urination. Has not had a bowel movement sinceFriday. Upon arrival, patient did not answer door as normal. Sitting in computer chair in living room. Pale- ill appearing. Waste basket beside chair. Does report above. Not drinking well- VS wnl Skin turgor slow Lungs clear bilaterally No sob noted Nonpitting edema to BLE Abdomen soft- hypoactive bowel sounds noted Abdomen tender from vomiting. Appetite poor Fluids encouraged. TT to Dr. Hale- IV 1 L NS now Zofran 4mg IV push- will send script for Zofran 8mg ODT every 8 hours.- This nurse will provide 4 tabs out of med box Physical Exam: Physical Exam Constitutional: Appearance: He is ill-appearing. Cardiovascular: Rate and Rhythm: Normal rate. Rhythm [...] Capillary refill takes 2 to 3 seconds. Coloration: Skin is pale. Neurological: General: No focal deficit present. Mental Status: He is alert and oriented to person, place, and time. Psychiatric: Mood and Affect: Mood normal. Behavior: Behavior normal. Review of Systems: Review of Systems Constitutional: Positive for activity change and fatigue. Respiratory: Negative. Cardiovascular: Positive for leg swelling. Gastrointestinal: Negative. Genitourinary: Negative. Musculoskeletal: Positive for gait problem. Skin: Negative. Hematological: Negative. Psychiatric/Behavioral: Negative. Care Plan Goal Progress: Orders Placed: No orders of the defined types were placed in this encounter. Medications Given: Administrations This Visit NSS 0.9% 1,000 mL bolus infusion Admin Date 05/08/2024 Action New Bag Dose 1,000 mL Rate 1,000 mL/hr Route Intravenous Documented By Kelly Rosa RN ondansetron (Zofran) inj 4 mg Admin Date 05/08/2024 Action Given Dose 4 mg Route IV Push Documented By Kelly Rosa RN Care Gaps: Care Gaps Care gaps closed this contact:: Home based procedures;Education (05/08/24 132) Type of education: Clinical/disease (05/08/241325) Procedure performed: IV medication;IV hydration (05/08/241325) documented in this encounter Plan of Treatment Upcoming Encounters Date Type Department Care Team (Late st Contact Info) Description 05/09/2024 11:15 AM EDT Scheduled Telephone [facility] [place], [address] [place] [address] Coordinator, [facility] [address] [facility] [place] [address] 05/10/2024 11:00 AM EDT Scheduled Telephone [facility], [address] [place] [address] Coordinator, [facility] [address] [facility] [place] [address] 05/12/2024 2:30 PM EDT Office Visit Cardiology, [facility] [address] [facility] [place] [address] Luiz Pina PA-C 132 [facility] [place] [address] 05/16/2024 9:45 AM EDT Imaging [facility] 132 [facility] [place] [address] 05/22/2024 9:50 AM EDT Office Visit Ophthalmology, [facility] [address] [facility] [place] [address] Marshall Paez, DO [address] [place] [address] 05/22/2024 3:30 PM EDT Telemedicine Urology, [facility] 132 [facility] [place] [address] Regan Alejandro MD [address] [place] [address] 06/15/2024 5:30 PM EDT [facility] Visit [facility], [facility] [address] [facility] [place] [address] Kelly Rosa RN 132 [facility] [place] [address] 06/24/2024 9:00 AM EDT Office Visit Family [facility] [address] [place] [address] Sandra Goldstein MD [address] [place] [address] [place] [address] 09/12/2024 10:30 AM EST Office Visit Cardiology [address] [place] [address] Luiz Pina PA-C [address] [place] [address] 10/24/2024 10:30 AM EST Nurse Only Ancillary [address] [place] [address] [place], Nurse Annual Wellness [address] [place] [address] [place] [address] Health Maintenance Due Date Last Done Comments Diabetic Foot Exam 04/21/2024 04/21/2023, 1 , 05/28/2020, Additional history exists COVID-19 Vaccine ( season) 2024 10/01/2022, 06/17/2021, 11/14/2020, Additional history exists Influenza Vaccine (FLU shot) (#1) 2024 04/27/2023, 06/27/2022, 06/05/2021, Additional history exists CKD HGB USE SMARTSET 97666 05/29/202405/29, 03/19/2023, 03/19/2023, Additional history exists CKD PHOS USE SMARTSET 27696 05/29/202402/2023, 10/01/2022, 12/04/2020, Additional history exists GFR [...] this encounter Medical Devices Implanted Type Area Quality Control Auditor Device Identifier Shelf Expiration Date Model / Serial / Lot Sut Steel 6 M654g - [id number] Implanted:Qty: 4 on 10/21/2015 by Riki Chan MD at OR [facility] N/A: Chest JNJ : [employer] 07/22/2020 M654G / / [id number] Marker Coronary Amgm-Sd - [id number] Implanted:Qty: 1 on 10/21/2015 by Riki Chan MD at OR [facility] N/A: Chest [employer] 08/22/2018 AMGM-SD / / [id number] Marker Coronary Amgm-Sd - [id number] Implanted:Qty: 1 on 10/21/2015 by Riki Chan MD at OR [facility] Chest [employer] 06/22/2018 AM-SD / / [id number] documented as of this encounter Administered Medications Inactive Administered Medications - up to 3 most recent administrations Medication Order MAR Action Action Date Dose Rate Site NSS 0.9% 1,000 mL bolus infusion Intravenous, at 1,000 mL/hr Administer over 60 Minutes, Administer entire volume within 60 minutes or less., ONCE, 1 dose, On Wed05/08/24 at 1345 New Bag 05/08/2024 1:16 PM EDT 1,000 mL 1000 mL/hr Antecubital Right ondansetron (Zofran) inj 4 mg 4 mg, IV Push, ONCE, On Wed05/08/24 at 1345, For 1 dose Given 05/08/2024 1:15 PM EDT 4 mg Antecubital Right documented in this encounter Advance Directives [...] and were consensually agreed upon. Care Teams Publications Distribution Clerk Relationship Specialty Start Date End Date Sandra Goldstein MD [address] [place] [address] [place] [address] PCP - General Family Medicine 02/22/19 documented as of this encounter
--- OUTSIDE RECORDS SUMMARY | 2024-05-13 11:40 | External Medical Summary | Summary of Care ---
Author Name Unknown Organization [facility] Address [address] [place] [facility] [place] [place] [address] Phone [phone] Care Team Providers Care Director Strategy Name Role Phone Sandra Goldstein MD Primary Care Prov ider Reason for Visit * Reason Comments Procedure Entropion repair RLL Encounter Details Date Type Department Care Team (Late st Contact Info) Description 05/03/2024 11:00 AM EDT Office Visit Ophthalmology, [facility] 132 [facility] [place] [address] Marshall Paez, DO [address] [place], [place] [id number] Spastic entropion of right eye* Allergies Active [...] Oral Capsule Take by mouth daily. Active [place] 3 1000 MG Oral Capsule Take by mouth daily. Active Levothyroxine Sodium 112 MCG Oral Tablet (Levoxyl)Indications :Hypothyroidism due to acquired atrophy of thyroid Take 1 Tablet by mouth daily first thing in the morning at least 30 min prior to breakfast or other meds 90 Tablet 3 04/11/2024 Active Nystatin 340481 UNIT/GM External CreamIndications:Can didal diaper dermatitis Apply [...] TOP BID (.AM/PM) 06/10/2021 Active lidocaine-epinephrine 2 %-1:371051 inj 100 mgIndications:Spastic entropion of right eye 100 mg SC ONCE 05/03/2024 05/03/2024 En ded Erythromycin ophthalmic ointmentIndications:Spa stic entropion of right eye RT EYE ONCE 05/03/2024 05/03/2024 Ended documented as of this encounter (statuses [...] CHF 05/26/2019 05/22/2022 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 Patient is nowfor an entropion repair of right lower eyelid. [...] a double armed 4-0 prolene suture. The lateral canthal angle was reformed with a 6-0 chromic suture. The skin defect in the lateral canthus was closed with the 6-0 chromic suture. Antibiotic ointment was applied. The procedure was performed without complications. The patient tolerated the procedure well. Patient was discharged in good condition. Written and verbal discharge instructions were given to the patient. Marshall Paez DO documented in this encounter Nursing Notes [...] transmission of device. Patient agreeable to same. Procedure completed without incident. Patient tolerated procedure well. Instructions reviewed with patient by Dr. Paez. Patient discharged from procedure room. documented in this encounter Plan of Treatment Upcoming Encounters Date Type Department Care Team (Late st Contact Info) Description 05/12/2024 2:30 PM EDT Office Visit Cardiology, [facility] 132 [facility] [place] [address] Luiz Pina PA-C 132 [facility] [place] [address] 05/15/2024 3:30 PM EDT Telemedicine Urology, [facility] 132 [facility] [place] [address] Regan Alejandro MD 27 [facility] [place] [address] 05/22/2024 9:50 AM EDT Office Visit Ophthalmology, [facility] 132 [facility] [place] [address] Marshall Paez, DO 16 [facility] [address] 06/15/2024 5:30 PM EDT [facility] Visit [facility], [facility] [address] [facility] [place] [address] Kelly Rosa, JULIA [address] [facility] [place] [address] 06/24/2024 9:00 AM EDT Office Visit Family Practice [facility] 132 [facility] [place] [address] Sandra Goldstein MD [address] [place] [address] [place] [address] 09/12/2024 10:30 AM EST Office Visit Cardiology [address] [place] [address] Luiz Pina, JODI [address] [place] [address] 10/24/2024 10:30 AM EST Nurse Only Ancillary [address] [place] [address] [place], Nurse Annual Wellness [address] [place] [address] [place] [address] Health Maintenance Due Date Last Done Comments Diabetic Foot Exam 04/21/2024 04/21/2023, 1 , 05/28/2020, Additional history exists COVID-19 Vaccine ( season) 2024 10/01/2022, 06/17/2021, 11/14/2020, Additional history exists Influenza Vaccine (FLU shot) (#1) 2024 04/27/2023, 06/27/2022, 06/05/2021, Additional history exists CKD HGB USE SMARTSET 44981 05/29/202405/29, 03/19/2023, 03/19/2023, Additional history exists CKD PHOS USE SMARTSET 22352 05/29/202402/2023, 10/01/2022, 12/04/2020, Additional history exists GFR [...] this encounter Medical Devices Implanted Type Area Signals Intelligence Superintendent Device Identifier Shelf Expiration Date Model / Serial / Lot Sut Steel 6 M654g - [id number] Implanted:Qty: 4 on 10/21/2015 by Riki Chan MD at OR [facility] N/A: Chest JNJ : [employer] 07/22/2020 M654G / / [id number] Marker Coronary Amgm-Sd - [id number] Implanted:Qty: 1 on 10/21/2015 by Riki Chan MD at OR [facility] N/A: Chest [employer] 08/22/2018 AMGM-SD / / [id number] Marker Coronary Amgm-Sd - [id number] Implanted:Qty: 1 on 10/21/2015 by Riki Chan MD at OR [facility] Chest [employer] 06/22/2018 AMGM-SD / / [id number] documented as of this encounter Visit Diagnoses Diagnosis Spastic entropion of right eye- Primary Spastic entropion documented in this encounter Administered Medications Inactive Administered Medications - up to 3 most recent administrations Medication Order MAR Action Action Date Dose Rate Site Erythromycin ophthalmic ointment Right eye, ONCE, On Wed05/03/24 at 1100, For 1 dose Given 05/03/2024 10:43 AM EDT 1 g Eye Right lidocaine-epinephrine 2 %-1:855832 inj 100 mg 100 mg (5 mL), Subcutaneous, ONCE, On Wed05/03/24 at 1100, For 1 dose Given 05/03/2024 10:43 AM EDT 100 mg Eye Right documented in this encounter Advance Directives [...] and were consensually agreed upon. Care Teams Director Strategy Relationship Specialty Start Date End Date Sandra Goldstein MD [address] [place] [address] [place] [address] PCP - General Family Medicine 02/22/19 documented as of this encounter
--- OUTSIDE RECORDS SUMMARY | 2024-05-13 11:40 | External Medical Summary | Summary of Care ---
Author Name Unknown Organization [facility] Address [address] [facility] [place] [address] Phone [phone] Care Team Providers Care Warp Coiler Name Role Phone Sandra Goldstein MD Primary Care Prov ider Reason for Visit * Reason Onset Date Comments [facility]: Acute 05/08/2024 Encounter Details Date Type Department Care Team (Late st Contact Info) Description 05/08/2024 Telephone [facility], [facility] [address] [facility] [place] [address] Kalyn Sarmiento RN [address] [facility] [place] [address] [facility]: Acute Allergies Active Allergy [...] Oral Tablet (pLAVix)Indications: PAD (peripheral artery disease) ([facility]) Take 1 Tablet by mouth in [...] Oral Capsule Take by mouth daily. Active [place] 3 1000 MG Oral Capsule Take by mouth daily. 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 Lives in [place]. Calling to report vomiting x 2 days. Background: AFIB, CHF, AICD, DM, BHUPINDER, hypothyroidism, PR, CABGx 3, CVA Assessment: reports vomiting that [...] PO fluid intake taking sips as tolerated Neche diet Treatment/Plan: (need to report) Level of call: Acute Appointment scheduled for same day: Yes [employer] Certified Network Associate Provider Name: Kelly Rosa RN Call back instructions provided to patient. documented in this encounter Plan of Treatment Upcoming Encounters Date Type Department Care Team (Late st Contact Info) Description 05/12/2024 2:30 PM EDT Office Visit Cardiology, [facility] 132 [facility] [place] [address] Luiz Pina PA-C 132 [facility] [place] [address] 05/16/2024 9:45 AM EDT Imaging Radiology [facility] 1st Floor, [place] [address] [place] [address] 05/22/2024 9:50 AM EDT Office Visit Ophthalmology, [facility] 132 [facility] [place] [address] Marshall Paez, DO [address] [place] [address] [place] [address] 05/22/2024 3:30 PM EDT Telemedicine Urology, [facility] [address] [facility] [place] [address] Regan Alejandro MD [address] [place] [address] 06/15/2024 5:30 PM EDT Home Visit [facility] [place], [facility] [address] [facility] [place] [address] Kelly Rosa RN 132 [facility] [place] [address] 06/24/2024 9:00 AM EDT Office Visit Family Practice [facility] [address] [facility] [place] [address] Sandra Goldstein MD [address] [place] [address] [place] [address] 09/12/2024 10:30 AM EST Office Visit Cardiology [address] [place] [address] Luiz Pina PARaheemC 132 [facility] [place] [address] 10/24/2024 10:30 AM EST Nurse Only Ancillary [address] [place] [address] [place], Nurse Annual Wellness [address] [place] [address] [place] [address] Health Maintenance Due Date Last Done Comments Diabetic Foot Exam 04/21/2024 04/21/2023, 1 , 05/28/2020, Additional history exists COVID-19 Vaccine ( season) 2024 10/01/2022, 06/17/2021, 11/14/2020, Additional history exists Influenza Vaccine (FLU shot) (#1) 2024 04/27/2023, 06/27/2022, 06/05/2021, Additional history exists CKD HGB USE SMARTSET 56698 05/29/202405/29, 03/19/2023, 03/19/2023, Additional history exists CKD PHOS USE SMARTSET 73714 05/29/202402/2023, 10/01/2022, 12/04/2020, Additional history exists GFR [...] this encounter Medical Devices Implanted Type Area Well Driller Helper Device Identifier Shelf Expiration Date Model / Serial / Lot Sut Steel 6 M654g - [id number] Implanted:Qty: 4 on 10/21/2015 by Riki Chan MD at OR [facility] N/A: Chest JNJ : [employer] 07/22/2020 M654G / / [id number] Marker Coronary Amgm-Sd - [id number] Implanted:Qty: 1 on 10/21/2015 by Riki Chan MD at OR [facility] N/A: Chest [employer] 08/22/2018 AMGM-SD / / [id number] Marker Coronary Amgm-Sd - [id number] Implanted:Qty: 1 on 10/21/2015 by Riki Chan MD at OR [facility] Chest [employer] 06/22/2018 AMGM-SD / / [id number] documented as of this encounter Advance Directives [...] and were consensually agreed upon. Care Teams Warp Coiler Relationship Specialty Start Date End Date Sandra Goldstein MD [address] [place] [address] [place] [address] PCP - General Family Medicine 02/22/19 documented as of this encounter
--- OUTSIDE RECORDS SUMMARY | 2024-05-13 11:41 | External Medical Summary | Summary of Care ---
Author Name Unknown Organization [facility] Address [address] [place] [address] Phone [phone] Care Team Providers Care Pipe Coverer Name Role Phone Sandra Goldstein MD Primary Care Prov ider Reason for Visit * Reason Comments Mohs Surgery Left Cheek * Evaluate & Treat - Unlimited Visits (Within 10 days (routine)) - Authorized Specialty Diagnoses / Procedures Referred By Damari amezcua Referred To Contact Dermatology Diagnoses Basal cell carcinoma (BCC) of left cheek Marshall Paez, DO [address] [place] [address] Mary Jane [place] MD [address] [place] [id number] Referral ID Status Reason Start Date Expiration Date Visits Requested Visits Authorized [id number] Authorized Specialty Services Required 11/08/[id number] Encounter Details Date Type Department Care Team (Late st Contact Info) Description 04/07/2024 8:15 AM EDT Office Visit MOHS Surgery [facility] [place] [address] [place] [address] Mary Jane [place] MD [address] [place] [id number] Basal cell carcinoma (BCC) of left cheek* Allergies Active Allergy Reactions Criticality Noted Date Comments Lisinopril Cough Low 12/21/2012 documented as of this encounter (statuses as of 04/11/2024) Medications Medication Sig Dispensed Refills Start Date [...] Additional Information Patient not taking.Reported on 04/07/2024 Levothyroxine Sodium 112 MCG Oral Tablet (Levoxyl)Indications :Hypothyroidism due to acquired atrophy of thyroid Take 1 Tablet by mouth daily first thing in the morning. (at least 30 min prior to breakfast or other meds) 90 Tablet 1 10/19/2023 Active Tamsulosin HCl 0.4 MG Oral Capsule (Flomax)Indications: BPH without obstruction/lower urinary tract symptoms Take one capsule daily 90 Capsule 3 10/19/2023 Active Losartan Potassium 50 MG Oral Tablet (Cozaar)Indications: HTN, goal below 150/90 Take 1/2 Tablets by mouth in the morning and before bedtime. 90 Tablet 3 10/19/2023 Active Nystatin 062188 UNIT/GM External CreamIndications:Can didal diaper dermatitis Apply topically to affected area 2 times a day. To affacted area for two weeks. 30 g 5 10/19/2023 Active Additional Information Patient not taking.Reported on 12/22/2023 Metoprolol Succinate ER 50 MG Oral Tablet [...] Oral Capsule Take by mouth daily. Active Kelayres 3 1000 MG Oral Capsule Take by mouth daily. Active Hospital, Clinic, or Other Facility Administered Medication Ordered Dose Route Frequency Start Date End Date Status Nystatin (Nystop) powderIndications:Tinea cruris TOP BID (.AM/PM) 06/10/2021 Active documented as of this encounter (statuses as of 04/11/2024) Active Problems Problem Noted Date Diagnosed Date Elevated PSA 10/21/2023 Hypothyroidism due to acquired atrophy of thyroi d 10/19/2023 Yeast dermatitis 04/21/2023 Type 2 diabetes mellitus wit h stage 3b chronic kidney disease, without long-term current use of insulin 09/15/2022 Scrotal swelling 03/16/2022 Tinea cruris 03/16/2022 Systolic congestive heart failure 12/02/2021 Type 2 diabetes mellitus wit h diabetic peripheral angiopathy without gangrene 12/02/2021 PAD (peripheral artery disease) 12/02/2021 Hypertensive heart disease w ith systolic heart failure and stage 3b chronic kidney disease 11/19/2021 Chronic kidney disease, stage 3b 09/01/2021 Overview: [...] CPAP to set pressure of 13 cm Dyslipidemia, goal LDL below 70 08/05/2009 Overview: Per Lipid Taxonomy. Type 2 diabetes mellitus wit h hemoglobin A1c goal of less than 8.0% 06/20/2009 Overview: Per Diabetes Taxonomy. 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 [...] as of this encounter (statuses as of 04/11/2024) Immunizations Name Administration Dates Next Due COVID-19 mRNA, LNP-s, No Pre serve, 2-Dose Series (PointAcross) 06/17/2021,11/14/2020,10/24/2020 Covid-19, Mrna, Lnp-s, Pf, B ivalent, 30 Mcg, IM, 12 yrs and above (Pfizer) 10/01/2022 Pneumococcal Conjugate Vacc, 13 Valent (Prevnar) 08/13/2015 Pneumococcal Polysaccharide PPV23 (Pneumovax) 07/07/2012 Seasonal Influenza, PF, 6 M & above, IM , (FluLaval or Fluzone) 05/28/2020,05/25/2019,05/05/2018,06/04 Seasonal Influenza, Quadriva lent Hd (Fluzone Hd) 04/27/2023,06/05/2021 Seasonal Influenza, Quadriva lent, No Preserve, IM 08/18/2016,08/13/2015 Seasonal Influenza, Split, I IV3, With Preserve, Inj 05/25/2014,06/13/2013,07/07/2012 Seasonal Influenza, Trivalen t, Adjuvanted, 65+ yrs 06/27/2022 TDAP (age 10 and older)(Boostrix) 03/27/2023, [...] as of this encounter Progress Notes * Mary Jane [place] MD - 04/07/2024 8:15 AM EDT Chris Mohs Surgery Note (See separate transcribed operative note for further detail) History: Earl Garcia is a 83 year old patient seen at the request of Marshall Paez DO for evaluation and management of the following lesion: A. Skin, left cheek, shave: Basal cell carcinoma, at least nodular type Patient problem list reviewed. Patient medication/allergy lists reviewed. Examination: Earl Garcia is alert, oriented and appears well and in no distress. 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 Microscopic examination of the specimen allowed the Mohs surgeon, whose dual role is to function as both surgeon and pathologist, to precisely identify the location of any remaining tumor or ascertain that the tissue margins were free of tumor. This process of excision of remaining tumor, mapping, and histologic exam was repeated until the tumor was excised completely. Patient identified, procedure verified, site identified and verified with the patient. Time out completed. Surgical removal of the lesion discussed with the patient (risks and benefits, including possibility of scarring, infection, bleeding, recurrence or potential for further treatment). I have specifically identified the site with the patient. I have discussed the fact that the patient will have a scar after the procedure regardless of granulation or repair with sutures. There is a risk of injury to nerves causing temporary or permanent numbness or the inability to move muscles fully. Questions answered and verbal and written consent was obtained. 1 stage(s) Anesthetic: 0.05% lidocaine with 1:100,000 epinephrine. Repair: Primary Intermediate layered repair (see separate operative report for details) Absorbable sutures Wound care was discussed verbally, demonstrated and printed wound instructions given as well as wound care supplies. Patient instructed to call with questions or concerns. Personal contact information provided. Follow-up: as needed Mary Jane [place] MD Associate, Mohs Micrographic Surgery & Dermatologic Surgery 04/07/2024 documented in this encounter Procedure Notes * Mary Jane [place] MD - 04/07/2024 2:00 PM EDT CLINIC NOTES [facility] [place] [address] MOHS MICROGRAPHIC SURGERY Earl Garcia [facility]# [id number] 04/07/2024 MOHS NUMBER: [id number] [id number]: [id number] OPERATION: SURGICAL EXCISION OF CUTANEOUS MALIGNANCY USING CONTINUOUS MICROSCOPIC CONTROL(MOHS MICROGRAPHIC SURGERY) DIAGNOSIS: nodular basal cell carcinoma LOCATION: left cheek INDICATION FOR MOHS SURGERY: Location SURGEON: Mary Jane [place] M.D. SHIPPING ORDER CLERK SURGEON: NONE SHIPPING ORDER CLERK SURGEON: NONE ANESTHETIC: Buffered lidocaine 0.5% with epinephrine 1:200,000 FARM BUTCHER: Mary Jane [place] M.D. PREOPERATIVE SIZE OF LESION: 1.3 x 1.0 cm POSTOPERATIVE SIZE OF DEFECT: 1.5 x 1.2 cm ESTIMATED BLOOD LOSS: 5CC PROCEDURE: Time out called. Patient identified. Procedure matches verbalized consent. Site identified and verified and confirmed immediately prior to the procedure. Site marked. Thin layers of tumor-containing tissue were excised at each stage of surgery. These were cut into smaller tissue sections which were examined microscopically in a systematic fashion. Examination of the entire base and superficial peripheral margin allowed microscopic tumor extensions to be located and mapped. In accordance with the Mohs technique, this procedure enabled the maximum amount of normal tissue to be preserved while achieving the highest cure rate for cutaneous malignancy. At each surgical stage, the patient was prepped, the proposed excision outlined on the skin, and the area was reanesthetized as needed. STAGE I: The patient was prepped and the area of surgery was outlined. The operative site was anesthetized with a local injection of buffered lidocaine 0.5% with epinephrine 1:200,000. Following this the clinically apparent portion of the tumor was surgically removed. Hemostasis was achieved with an electrosurgical device. A thin layer of tissue was surgically excised and hemostasis was obtained. A reference map was drawn and the excised tissue was cut into 4 sections for examination in the micrographic laboratory. Edges of each section were dyed in order to achieve precise orientation. Horizontal sectioning of the base and continuous peripheral margins were then carried out and the prepared microscopic sections were examined by Mary Jane [place] M.D.. Any areas of residual nodular basal cell carcinoma were indicated on the reference map, pinpointing the location in which further tissue excision was necessary. At this point, no further tumor cells were identified and the tumor eradication was considered to be complete for a total of 1 stage of surgery in which multiple microscopic slices of 4 tissue sections had been examined. WOUND MANAGEMENT: This wound was reconstructed with a an intermediate repair. The beveled edges of the Mohs defect were excised at a 90 degree angle relative to surrounding skin. Burow's triangles were excised from the poles of the wound and oriented to use relaxed skin tension lines and anatomic borders to greatest advantage. Meticulous hemostasis was obtained with the electrosurgical device. The wound was repaired in a layered fashion to close potential space and to precisely and securely approximate the wound edges. Total volume of Buffered lidocaine 0.5% with epinephrine 1:200,000, for Mohs Surgery and reconstruction was 12 ml. The final closure was 4.5 cm. in length. Subcutaneous closure material: Interrupted 4-0 Monocryl Cutaneous closure material: Running 5-0 Fast gut Mary Jane [place] M.D. Associate Department of Dermatology documented in this encounter Nursing Notes * Xochitl Guerra LPN - 04/07/2024 9:04 AM EDT Chief Complaint Patient presents with Mohs Surgery Left Cheek Referral Doctor: Philippe Hypertension History: Yes, refer to medication information for treatment. Diabetes History: Yes, but not medicated Thyroid History: Yes, refer to medication information for treatment. Bleeding Tendency: Yes, refer to medication information for treatment. Artificial Valve or Joint: Yes, No SBE Prophylaxis Required Pacemaker: no Defibrillator: yes Hepatitis/HIV Exposure: No Smoking: no Consent signed yes documented in this encounter Miscellaneous Notes * Letters - Mary Jane [place] MD - 04/07/2024 2:00 PM EDT Department of Dermatology [address] [facility] [place], [place] [address] Mary Jane [place] M.D. Associate Dermatologic Surgery April 07, 2024 Marshall Paez D.O. [place], [place] [address] Earl Garcia [id number] MOHS CASE: [id number] DX: nodular basal cell carcinoma Dear Referring Provider, Thank you for referring Earl Garcia for treatment of nodular basal cell carcinoma of the left cheek. The lesion was treated with Mohs micrographic surgery, and required 1 stage for complete removal. The surgical defect was repaired with an intermediate layered closure. Yours truly, Mary Jane [place] M.D. documented in this encounter Plan of Treatment Upcoming Encounters Date Type Department Care Team (Late st Contact Info) Description 04/17/2024 10:40 AM EDT Office Visit Ophthalmology, [facility] [address] [place] [address] Marshall Paez, [address] [place] [address] 04/19/2024 9:00 AM EDT Office Visit Urology, [facility] [address] [facility] [place] [address] Regan Alejandro MD [address] [facility] [address] 04/20/2024 9:00 AM EDT Home Visit [facility] [address] [facility] [place] [address] Jake Gilmore PA-C [address] [facility] [place] [address] 04/28/2024 8:30 AM EDT Home Visit [facility], [facility] [address] [place] [address] Kelly Rosa RN [address] [place] [address] 05/02/2024 2:45 PM EDT Office Visit Urology, [facility] [address] [place] [address] Regan Alejandro MD [address] [place] [id number] 05/12/2024 2:30 PM EDT Office Visit Cardiology, [facility] [address] [place] [address] Luiz Pina PA-C [address] [place] [address] 06/24/2024 9:00 AM EDT Office Visit Family Practice [facility] [address] [place] [address] Sandra Goldstein MD [address] [place] [address] [place] [address] 09/12/2024 10:30 AM EST Office Visit Cardiology [address] [place] [address] Luiz Pina PA-C [address] [place] [address] 10/24/2024 10:30 AM EST Nurse Only Ancillary [address] [place] [address] [place], Nurse Annual [address] [place] [address] Scheduled Referrals Name Type Priority Associated Diagnoses Orde r Schedule DERMATOLOGY REFERRAL OP Referral Within 10 days (routine) Basal cell carcinoma (BCC) of left cheek Ordered: 11/08/2023 Health Maintenance Due Date Last Done Comments COVID-19 Vaccine ( season) 2023 10/01/2022, 06/17/2021, 11/14/2020, Additional history exists Diabetic Foot Exam 04/21/2024 04/21/2023, 1 , 05/28/2020, Additional history exists Influenza Vaccine (FLU shot) (#1) 2024 04/27/2023, 06/27/2022, 06/05/2021, Additional history exists CKD HGB USE SMARTSET 17152 05/29/202405/29, 03/19/2023, 03/19/2023, Additional history exists CKD PHOS USE SMARTSET 93308 05/29/2024 1002/2023, 10/01/2022, 12/04/2020, Additional history exists GFR 09/07/2024 03/07/2024, 10/21, 05/29/2023, Additional history exists HbA1c 09/07/2024 03/07/2024, 10/21, 05/29/2023, Additional history exists Adult Wellness Visit 10/20/2024 10/21/2023 Depression Screening 10/20/2024 10/21/2023 B-12 11/07/2024 11/08/2023, 0204/2023, 12/04/2020, Additional history exists Albumin/Creatinine Ratio 11/08/2024 032 024, 10/08/2022, 11/30/2017, Additional history exists Diabetic Eye Exam 01/24/2025 01/25/2024, , 06/15/2023, Additional history exists TSH 03/07/2025 03/07/2024, 110 04/2023, 05/29/2023, Additional history exists DTaP,Tdap,and Td Vaccines (3 - Td or Tdap) 03/27/2033 [...] this encounter Medical Devices Implanted Type Area Pc Maintenance Technician Device Identifier Shelf Expiration Date Model / Serial / Lot Sut Steel 6 [id number] - [id number] Implanted:Qty: 4 on 10/21/2015 by Riki Chan MD at OR [facility] N/A: Chest JNJ : [employer] 07/22/2020 [id number] / / [id number] Marker Coronary Amgm-Sd - [id number] Implanted:Qty: 1 on 10/21/2015 by Riki Chan MD at OR [facility] N/A: Chest [employer] 08/22/2018 AMGM-SD / / [id number] Marker Coronary Amgm-Sd - [id number] Implanted:Qty: 1 on 10/21/2015 by Riki Chan MD at OR [facility] Chest [employer] 06/22/2018 AMGM-SD / / [id number] documented as of this encounter Visit Diagnoses Diagnosis Basal cell carcinoma (BCC) of left cheek- Primary documented in this encounter Advance Directives [...] and were consensually agreed upon. Care Teams Pipe Coverer Relationship Specialty Start Date End Date Sandra Goldstein MD NPI: [id number] [place] [address] [place] [address] PCP - General Family Medicine 02/22/19 documented as of this encounter
--- OUTSIDE RECORDS SUMMARY | 2024-05-13 11:41 | External Medical Summary | Summary of Care ---
Author Name Unknown Organization [facility] Address [address] [place] [address] Phone [phone] Care Team Providers Care Investment Fund Manager Name Role Phone Sandra Goldstein MD Primary Care Prov ider Reason for Visit * Reason Onset Date Comments Appointment 03/28/2024 Encounter Details Date Type Department Care Team (Late st Contact Info) Description 03/28/2024 Telephone [facility] [place] [address], [place] [id number] Services, Scheduling [address] [place] [address] Appointment Allergies Active Allergy Reactions Criticality Noted Date Comments Lisinopril Cough Low 12/21/2012 documented as of this encounter (statuses as of 03/28/2024) Medications Medication Sig Dispensed Refills Start Date [...] day . 60 g 2 03/16/2022 Active Additional Information Patient not taking.Reported on 10/19/2023 Nitroglycerin 0.4 MG Sublingual Tablet Sublingual (Nitrostat)Indicatio [...] Tablet by mouth in the morning. Active Atorvastatin Calcium 40 MG Oral Tablet (Lipitor)Indications :Type 2 diabetes mellitus with hemoglobin A1c goal of less than 8.0% ([facility]),Coronary artery disease involving [place] coronary artery of [place] heart without angina pectoris Take 1 Tablet by mouth in the morning. 90 Tablet 3 10/19/2023 Active Additional Information Patient not taking.Reported on 03/16/2024 Clopidogrel Bisulfate 75 MG Oral Tablet (pLAVix)Indications: PAD (peripheral artery disease) ([facility]) Take 1 Tablet by mouth in the morning. 90 Tablet 3 10/19/2023 Active Additional Information Patient not taking.Reported on 03/16/2024 Levothyroxine Sodium 112 MCG Oral Tablet (Levoxyl)Indications :Hypothyroidism due to acquired atrophy of thyroid Take 1 Tablet by mouth daily first thing in the morning. (at least 30 min prior to breakfast or other meds) 90 Tablet 1 10/19/2023 Active metFORMIN HCl 1000 MG Oral Tablet (Glucophage)Indicati ons:Type 2 diabetes mellitus with stage 3b chronic kidney disease, without long-term current use of insulin ([facility]) TAKE ONE TABLET BY MOUTH EVERY DAY with breakfast 90 Tablet 3 10/19/2023 Active Additional Information Patient not taking.Reported on 03/16/2024 Tamsulosin HCl 0.4 MG Oral Capsule (Flomax)Indications: BPH without obstruction/lower urinary tract symptoms Take one capsule daily 90 Capsule 3 10/19/2023 Active Losartan Potassium 50 MG Oral Tablet (Cozaar)Indications: HTN, goal below 150/90 Take 1/2 Tablets by mouth in the morning and before bedtime. 90 Tablet 3 10/19/2023 Active Nystatin 433622 UNIT/GM External CreamIndications:Can didal diaper dermatitis Apply [...] a day. 180 Tablet 3 10/19/2023 Active Additional Information Patient not taking.Reported on 03/16/2024 Amiodarone HCl 200 MG Oral Tablet (Cordarone)Indicatio ns:Paroxysmal atrial fibrillation (HCC) Take 1 Tablet by mouth in the morning. 100 Tablet 3 10/26/2023 Active Ciprofloxacin HCl 500 MG Oral Tablet (Cipro) Take 1 Tablet by mouth in the morning and 1 Tablet before bedtime. Start day before biopsy. 6 Tablet 11/08/2023 Active Additional Information Patient not taking.Reported on 03/16/2024 Furosemide 40 MG Oral Tablet (Lasix)Indications:P aroxysmal [...] before bedtime. 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 (Household - for ages [...] encounter Miscellaneous Notes * Telephone Encounter - Mary Ann Alexander OSA - 03/28/2024 12:14 PM EDT [facility] Engagement Attempt Engagement: Engagement Attempt 1: Contacted - Agreed to home-based services Scheduled appointment information: Spoke with pt, [facility] Home Information: Has Wi-Fi Advance Care Planning (ACP): No data was found Has Living Will or Advance Directive: No data was found Anticipated Sub-Program: Focused Care Management (3-9 months) Confirmation of Sub-Program Type (by care care team assistant): No data was found Handoff Information: Current care team notified via: Be [employer] communication Current telemonitoring equipment: No data was found documented in this encounter Plan of Treatment Upcoming Encounters Date Type Department Care Team (Late st Contact Info) Description 03/29/2024 2:00 PM EDT Home Visit [facility] [place] [address] [facility] [place] [address] Kelly Rosa RN 132 [facility] [place] [address] 04/07/2024 8:15 AM EDT Office Visit [facility] [address] [place] [address] Mary Jane Cordova MD [address] [place] [address] 04/17/2024 10:40 AM EDT Office Visit Ophthalmology, [facility] [address] [facility] [place] [address] Marshall Paez T, DO [facility] [address] 04/19/2024 9:00 AM EDT Office Visit Urology, [facility] [address] [place] [address] Regan Alejandro MD [address] [place] [address] 04/20/2024 9:00 AM EDT Home Visit [facility], [facility] [address] [place] [address] Jake Gilmore PA-C [address] [place] [address] 05/02/2024 2:45 PM EDT Office Visit Urology, [facility] [address] [place] [address] Regan Alejandro MD 27 [place] [address] 05/12/2024 2:30 PM EDT Office Visit Cardiology, [facility] [address] [place] [address] Luiz Pina PA-C [address] [place] [address] 06/24/2024 9:00 AM EDT Office Visit Family Practice [facility] [address] [place] [address] Sandra Goldstein MD [address] [place] [address] [place] [address] 09/12/2024 10:30 AM EST Office Visit Cardiology [address] [place] [address] Luiz Pina PAGloria [address] [place] [address] 10/24/2024 10:30 AM EST Nurse Only Ancillary [address] [place] [address] [place], Nurse [address] [place] [address] Health Maintenance Due Date Last Done Comments COVID-19 Vaccine ( season) 2023 10/01/2022, 06/17/2021, 11/14/2020, Additional history exists Diabetic Foot Exam 04/21/2024 04/21/2023, 1 , 05/28/2020, Additional history exists Influenza Vaccine (FLU shot) (#1) 2024 04/27/2023, 06/27/2022, 06/05/2021, Additional history exists CKD HGB USE SMARTSET 12032 05/29/202405/29, 03/19/2023, 03/19/2023, Additional history exists CKD PHOS USE SMARTSET 04778 05/29/202402/2023, 10/01/2022, 12/04/2020, Additional history exists GFR [...] 03/07/2025 03/07/2024, 04/2023, 05/29/2023, Additional history exists DTaP,Tdap,and Td [...] this encounter Medical Devices Implanted Type Area Bellmaker Device Identifier Shelf Expiration Date Model / Serial / Lot Sut Steel 6 M654g - [id number] Implanted:Qty: 4 on 10/21/2015 [place] [facility] [place] Chest JNJ : [employer] 07/22/2020 M654G / / [id number] Marker Coronary Amgm-Sd - [id number] Implanted:Qty: 1 on 10/21/2015 by Riki Chan [place] [facility] [place]: Chest [employer] 08/22/2018 AMGM-SD / / [id number] Marker Coronary Amgm-Sd - [id number] Implanted:Qty: 1 on 10/21/2015 by Riki Chan [place] [facility] [place] [employer] 06/22/2018 AMGM-SD / / [id number] documented as of this encounter Advance Directives [...] and were consensually agreed upon. Care Teams Investment Fund Manager Relationship Specialty Start Date End Date Sandra Goldstein MD [address] [place] [address] [place] [phone] PCP - General Family Medicine 02/22/19 documented as of this encounter
--- OUTSIDE RECORDS SUMMARY | 2024-05-13 11:41 | External Medical Summary | Summary of Care ---
Author Name Unknown Organization [facility] Address [address] [facility] [address] Phone [phone] Care Team Providers Care Correctional Lieutenant Name Role Phone Sandra Goldstein MD Primary Care Prov ider Reason for Visit * Reason Comments Urology Procedure Prostate biopsy Encounter Details Date Type Department Care Team (Late st Contact Info) Description 04/25/2024 11:30 AM EDT Office Visit Urology, [facility] [address] [facility] [place] [address] Regan Alejandro MD [address] [place] [address] Elevated prostate specific antigen (PSA)* Allergies Active Allergy Reactions Criticality Noted Date Comments Lisinopril Cough Low 12/21/2012 documented as of this encounter (statuses as of 04/25/2024) Medications Medication Sig Dispensed Refills Start Date [...] 04/07/2024 Tamsulosin HCl 0.4 MG Oral Capsule (Flomax)Indications [...] Capsule Take by mouth daily. Active [place] 3 1000 MG Oral Capsule Take by mouth daily. Active Levothyroxine Sodium 112 MCG Oral Tablet (Levoxyl)Indication s:Hypothyroidism due to acquired atrophy of thyroid Take 1 Tablet by mouth daily first thing in the morning at least 30 min prior to breakfast or other meds 90 Tablet 3 04/11/2024 Active Nystatin 957990 UNIT/GM External CreamIndications:Ca ndidal diaper dermatitis Apply topically to affected area 2 times a day for two weeks. 30 g 5 04/11/2024 Active Ciprofloxacin HCl 500 MG Oral Tablet (Cipro) Take 1 Tablet by mouth in the morning and 1 Tablet before bedtime. Start day prior to biopsy. 6 Tablet 04/25/2024 Active Ciprofloxacin HCl 500 MG Oral Tablet (Cipro) Take 1 Tablet by mouth in the morning and 1 Tablet before bedtime. 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 (Household - for ages [...] Progress Notes * Regan Alejandro MD - 04/25/2024 11:30 AM EDT 83-year-old male here late for appointment prostate biopsy due to a persistently elevated PSA. Patient's past notes reviewed. Patient's anticoagulation is appreciated, but he notes he only held Plavix x 3 days, not 5 as recommended. Patient already at high-risk for bleeding in the context of his comorbidities. Will reschedule biopsy with appropriate anticoagulation hold as previously reviewed. Refill of ciprofloxacin sent to the patient's pharmacy, will provide IM antibiotic at next visit due to quinolone exposure. Elevated PSA: Patient is being seen for evaluation of an elevated PSA. Previous evaluation includes referral . Patient has been on tamsulosin. He reports slow stream. PSA Results: Lab Results Component Value Date/Time PSA - [facility] 20.81 (H) 03/07/2024 12:34 PM PSA - [facility] 14.71 (H) 09/27/2023 11:07 AM PSA - [facility] 7.98 (H) 07/01/2023 01:25 PM PSA - [facility] 0.53 09/12/2018 01:56 PM PSA SCREENING 0.32 03/25/2001 09:51 AM PSA-OUTSIDE LAB 0.37 05/26/2014 12:00 AM PSA-OUTSIDE LAB 0.34 05/28/2012 12:00 AM documented in this encounter Nursing Notes * Madai Bentley LPN - 04/25/2024 11:52 AM EDT Pt presents in office for prostate biopsy, consent signed Pt verbalized hold on Eliquis x 3 days, Plavix x 5 days, taking abx as directed, along with enema. Pt does not have a refuse driver today. documented in this encounter Plan of Treatment Upcoming Encounters Date Type Department Care Team (Late st Contact Info) Description 04/28/2024 8:30 AM EDT Home Visit [facility] [place] [address] [facility] [place] [address] Kelly Rosa RN [address] [facility] [place] [address] 05/02/2024 2:45 PM EDT Office Visit Urology, [facility] [address] [facility] [place] [address] Regan Alejandro MD [address] [facility] [place] [address] 05/03/2024 11:00 AM EDT Office Visit Ophthalmology, [facility] [address] [facility] [place] [address] Marshall Paez T, DO [address] [place] [address] 05/12/2024 2:30 PM EDT Office Visit Cardiology, [facility] [address] [facility] [place] [address] Luiz Pina PA-C [address] [facility] [place] [address] 06/24/2024 9:00 AM EDT Office Visit Family Practice [facility] [address] [place] [address] Sandra Goldstein MD [address] [place] [address] [place] [address] 09/12/2024 10:30 AM EST Office Visit Cardiology [address] [place] [address] Luiz Pina PA-C [address] [place] [address] 10/24/2024 10:30 AM EST Nurse Only Ancillary [address] [place] [address] [place], Nurse [facility] [address] [place] [address] [place] [address] Health Maintenance Due Date Last Done Comments Diabetic Foot Exam 04/21/2024 04/21/2023, 1 , 05/28/2020, Additional history exists COVID-19 Vaccine ( season) 2024 10/01/2022, 06/17/2021, 11/14/2020, Additional history exists Influenza Vaccine (FLU shot) (#1) 2024 04/27/2023, 06/27/2022, 06/05/2021, Additional history exists CKD HGB USE SMARTSET 36219 05/29/202405/29, 03/19/2023, 03/19/2023, Additional history exists CKD PHOS USE SMARTSET 68802 05/29/202402/2023, 10/01/2022, 12/04/2020, Additional history exists GFR [...] this encounter Medical Devices Implanted Type Area Senior Media Buyer Device Identifier Shelf Expiration Date Model / Serial / Lot Sut Steel 6 M654g - [id number] Implanted:Qty: 4 on 10/21/2015 by Riki Chan MD at OR [facility] [place] N/A: Chest JNJ : [employer] 07/22/2020 M654G / / [id number] Marker Coronary Amgm-Sd - [id number] Implanted:Qty: 1 on 10/21/2015 by Riki Chan MD at OR [facility] [place] N/A: Chest [employer] 08/22/2018 AMGM-SD / / [id number] Marker Coronary Amgm-Sd - [id number] Implanted:Qty: 1 on 10/21/2015 by Riki Chan MD at OR [facility] [place] Chest [employer] 06/22/2018 AMGM-SD / / [id number] documented as of this encounter Visit Diagnoses [...] and were consensually agreed upon. Care Teams Correctional Lieutenant Relationship Specialty Start Date End Date Sandra Goldstein MD [address] [place] [address] [place] [address] PCP - General Family Medicine 02/22/19 documented as of this encounter
--- OUTSIDE RECORDS SUMMARY | 2024-05-13 11:41 | External Medical Summary | Summary of Care ---
Author Name Unknown Organization [facility] [address] [facility] [address] Phone [phone] Care Team Providers Care Jv Baseball Coach Name Role Phone Sandra Goldstein MD Primary Care Prov ider Reason for Visit * Reason Comments Medication Refill Encounter Details Date Type Department Care Team (Late st Contact Info) Description 04/09/2024 Refill Family Medicine [address] [place] [address] Sandra Goldstein MD [address] [place] [address] [place] [address] Hypothyroidism due to acquired atrophy of thyroid; Candidal diaper dermatitis Allergies Active Allergy Reactions Criticality Noted Date [...] Oral Capsule Take by mouth daily. Active [place] 3 1000 MG Oral Capsule Take by mouth daily. Active Levothyroxine Sodium 112 MCG Oral Tablet (Levoxyl)Indication s:Hypothyroidism due to acquired atrophy of thyroid Take 1 Tablet by mouth daily first thing in the morning at least 30 min prior to breakfast or other meds 90 Tablet 3 04/11/2024 Active Nystatin 077462 UNIT/GM External CreamIndications:Ca ndidal diaper dermatitis Apply topically to affected area 2 times a day. To affacted area for two weeks. 30 g 5 04/11/2024 Active Levothyroxine Sodium 112 MCG Oral Tablet (Levoxyl)Indication s:Hypothyroidism due to acquired atrophy of thyroid Take 1 Tablet by mouth daily first thing in the morning. (at least 30 min prior to breakfast or other meds) 90 Tablet 1 10/19/2023 4 Discontinu ed(Refill) Nystatin 067646 UNIT/GM External CreamIndications:Ca ndidal diaper dermatitis Apply topically to affected area 2 times a day. To affacted area for two weeks. 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 [...] mRNA, LNP-s, No Pre serve, 2-Dose Series ([employer]) 06/17/2021,11/14/2020,10/24/2020 Covid-19, Mrna, Lnp-s, Pf, B ivalent, 30 Mcg, IM, 12 yrs and above ([employer]) 10/01/2022 Pneumococcal Conjugate Vacc, 13 Valent (Prevnar) [...] encounter Miscellaneous Notes * Telephone Encounter - Sandra Goldstein MD - 04/11/2024 2:50 PM EDT Signed Prescriptions: Disp Refills Levothyroxine Sodium 112 MCG Oral Tablet (*90 Tab*3 Sig: Take 1 Tablet by mouth daily first thing in the morning at least 30 min prior to breakfast or other meds Authorizing Provider: SANRDA GOLDSTEIN Ordering User: FIDE NAJERA Nystatin 527395 UNIT/GM External Cream 30 g 5 Sig: Apply topically t o affected area 2 times a day. To affacted area for two weeks. Authorizing Provider: SANDRA GOLDSTEIN * Telephone Encounter - Fide Najera [facility] - 04/11/2024 6:05 AM EDT Pending Prescriptions: Disp Refills Nystatin 323294 UNIT/GM External Cream 30 g 5 Sig: Apply topically to affected area 2 times a day. To affacted area for two weeks. Signed Prescriptions: Disp Refills Levothyroxine Sodium 112 MCG Oral Tablet (*90 Tab*3 Sig: Take 1 Tablet by mouth daily first thing in the morning. (at least 30 min prior to breakfast or other meds) Authorizing Provider: SANDRA GOLDSTEIN Ordering User: FIDE NAJERA * Telephone Encounter - Fide Najera [facility] - 04/11/2024 6:05 AM EDT Refill pharmacists currently not authorized to approve refills for this class of medication per refill protocol. Please approve if appropriate. Thank you, Fide Najera, PharmD. Clinical Pharmacist Pharmacy Refill Call Center 04/11/2024, 6:05 AM * Telephone Encounter - Transfer User, Rx Adt - 04/09/2024 12:18 AM EDTPending Prescriptions: Disp Refills Levothyroxine Sodium 112 MCG Oral Tablet (*90 Tab*1 Sig: Take 1Tablet by mouth daily first thing in the morning. (at least 30 min prior to breakfast or other meds) Nystatin 322234 UNIT/GM External Cream 30 g 5 Sig: Apply topically to affected area 2 times a day.To affacted area for two weeks. documented in this encounter Plan of Treatment Upcoming Encounters Date Type Department Care Team (Late st Contact Info) Description 04/17/2024 10:40 AM EDT Office Visit Ophthalmology, [facility] [address] [facility] [place] [address] Marshall Paez, DO 16 [place] [address] 04/19/2024 9:00 AM EDT Office Visit Urology, [facility] [address] [facility] [place] [address] Regan Alejandro MD [address] [place] [address] 04/20/2024 9:00 AM EDT [facility] [address] [place] [address] Jake Gilmore PA-C [address] [place] [address] 04/28/2024 8:30 AM EDT [facility] Visit [facility], [facility] [address] [place] [address] Kelly Rosa RN [address] [place] [address] 05/02/2024 2:45 PM EDT Office Visit Urology, [facility] [address] [place] [address] Regan Alejandro MD [place] [address] 05/12/2024 2:30 PM EDT Office Visit Cardiology, [facility] [address] [place] [address] Luiz Pina PA-C [address] [place] [address] 06/24/2024 9:00 AM EDT Office Visit Family Practice [facility] [address] [place] [address] Sandra Goldstein MD [address] [place] [address] [place] [address] 09/12/2024 10:30 AM EST Office Visit Cardiology [address] [place] [address] Luiz Pina PA-C [address] [place] [address] 10/24/2024 10:30 AM EST Nurse Only Ancillary [place] [address] [place] [address] [place], Nurse [address] [place] [address] Health Maintenance Due Date Last Done Comments COVID-19 Vaccine ( season) 2023 10/01/2022, 06/17/2021, 11/14/2020, Additional history exists Diabetic Foot Exam 04/21/2024 04/21/2023, 1 , 05/28/2020, Additional history exists Influenza Vaccine (FLU shot) (#1) 2024 04/27/2023, 06/27/2022, 06/05/2021, Additional history exists CKD HGB USE SMARTSET 05751 05/29/202405/29, 03/19/2023, 03/19/2023, Additional history exists CKD PHOS USE SMARTSET 70755 05/29/202402/2023, 10/01/2022, 12/04/2020, Additional history exists GFR 09/07/2024 03/07/2024, 10/21, 05/29/2023, Additional history exists HbA1c 09/07/2024 03/07/2024, 10/21, 05/29/2023, Additional history exists Adult Wellness Visit 10/20/2024 10/21/2023 Depression Screening 10/20/2024 10/21/2023 B-12 11/07/2024 11/08/2023, 0204/2023, 12/04/2020, Additional history exists Albumin/Creatinine Ratio 11/08/20242 024, 10/08/2022, 11/30/2017, Additional history exists Diabetic Eye Exam 01/24/2025 01/25/2024, , 06/15/2023, Additional history exists TSH 03/07/2025 03/07/2024, 11/0 04/2023, 05/29/2023, Additional history exists DTaP,Tdap,and Td [...] this encounter Medical Devices Implanted Type Area Electric Motor Control Assembler Device Identifier Shelf Expiration Date Model / Serial / Lot Sut Steel 6 M654g - [id number] Implanted:Qty: 4 on 10/21/2015 by Riki Chan MD at [place] [facility] [place] N/A: Chest JNJ : [employer] 07/22/2020 M654G / / [id number] Marker Coronary Amgm-Sd - [id number] Implanted:Qty: 1 on 10/21/2015 by Riki Chan MD at [place] [facility] [place] N/A: Chest [employer] 08/22/2018 AMGM-SD / / [id number] Marker Coronary Amgm-Sd - [id number] Implanted:Qty: 1 on 10/21/2015 by Riki Chan MD at [place] [facility] [place] Chest [employer] 06/22/2018 AMGM-SD / / [id number] documented as of this encounter Visit Diagnoses Diagnosis Hypothyroidism due to acquired atrophy of thyroid Candidal diaper dermatitis Candidiasis of other urogenital sites documented in this encounter Advance Directives * [...] and were consensually agreed upon. Care Teams Jv Baseball Coach Relationship Specialty Start Date End Date Sandra Goldstein MD [address] [place] [address] [place] [phone] PCP - General Family Medicine 02/22/19 documented as of this encounter
--- OUTSIDE RECORDS SUMMARY | 2024-05-13 11:41 | External Medical Summary | Summary of Care ---
Author Name Unknown Organization [facility] Address [address] [place] [address] Phone [phone] Care Team Providers Care Multiple Tube Winding Machine Operator Name Role Phone Sandra Goldstein MD Primary Care Prov ider Encounter Details Date Type Department Care Team (Latest Contact Info) Description 03/15/2024 Medication Management [facility] [address] [place] [address] Ciarra Booth CPhT Referred for management of medication therapy* Allergies Active Allergy Reactions Criticality Noted Date Comments Lisinopril Cough Low 12/21/2012 documented as of this encounter (statuses as of 03/28/2024) Medications Medication Sig Dispensed Refills Start Date End Date Status oxygen GAS 1LPM bled through bipap 1 Each 11/28/2019 Active Additional Information Patient not taking.Reported on 04/21/2023 Vitamin D3 25 MCG (1000 UT) Oral Tablet (Vitamin D3)Indications:Vit archibald D deficiency Take by mouth 2 Tablets in the morning. 180 Tablet 1 11/21/2021 Active BiPAP every night at bedtime . Active Clotrimazole 1 % External Cream (Lotrimin) Apply topically to affected area 2 times a day . 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 90 Tablet 3 10/19/2023 Active Additional Information Patient not taking.Reported on 03/16/2024 Clopidogrel Bisulfate 75 MG Oral Tablet (pLAVix)Indication s:PAD (peripheral artery disease) ([facility]) Take 1 Tablet by mouth in the morning. 90 Tablet 3 10/19/2023 Active Additional Information Patient not taking.Reported on 03/16/2024 Levothyroxine Sodium 112 MCG Oral Tablet (Levoxyl)Indicatio ns:Hypothyroidism due to acquired atrophy of thyroid Take 1 Tablet by mouth daily first thing in the morning. (at least 30 min prior to breakfast or other meds) 90 Tablet 1 10/19/2023 Active metFORMIN HCl 1000 MG Oral Tablet (Glucophage)Indica tions:Type 2 diabetes mellitus with stage 3b chronic kidney disease, without long-term current use of insulin ([facility]) TAKE ONE TABLET BY MOUTH EVERY DAY with breakfast 90 Tablet 3 10/19/2023 Active Additional Information Patient not taking.Reported on 03/16/2024 Tamsulosin HCl 0.4 MG Oral Capsule (Flomax)Indication s:BPH without obstruction/lower urinary tract symptoms Take one capsule daily 90 Capsule 10/19/2023 Active Losartan Potassium 50 MG Oral Tablet (Cozaar)Indication s:HTN, goal below 150/90 Take 1/2 Tablets by mouth in the morning and before bedtime. 90 Tablet 10/19/2023 Active Nystatin 792883 UNIT/GM External CreamIndications:C andidal diaper dermatitis Apply topically to affected area 2 times a day. To affacted area for two weeks. 30 g 10/19/2023 Active Additional Information Patient not taking.Reported on 12/22/2023 Metoprolol Succinate ER 50 MG Oral Tablet Extended Release 24 Hour (toPROL XL)Indications:Par oxysmal atrial fibrillation (HCC),HTN, goal below 150/90,Chronic ischemic heart disease,VF (ventricular fibrillation) (HCC) Take 1 Tablet by mouth 2 times a day. 180 Tablet 3 10/19/2023 Active Additional Information Patient not taking.Reported on 03/16/2024 Amiodarone HCl 200 MG Oral Tablet (Cordarone)Indicat ions:Paroxysmal atrial fibrillation (HCC) Take 1 Tablet by mouth in the morning. 100 Tablet 3 10/26/2023 Active Ciprofloxacin HCl 500 MG Oral Tablet (Cipro) Take 1 Tablet by mouth in the morning and 1 Tablet before bedtime. Start day before biopsy. 6 Tablet 11/08/2023 Active Additional Information Patient not taking.Reported on 03/16/2024 Apixaban 5 MG Oral Tablet (Eliquis)Indicatio ns:Paroxysmal atrial fibrillation (HCC) Take 1 Tablet by mouth in the morning and 1 Tablet before bedtime. 180 Tablet 3 10/19/2023 4 Discontinue d(Medicatio n/Dose Changed) Potassium Chloride Valentina ER 10 MEQ Oral Tablet Extended ReleaseIndications :Acute decompensated heart failure (HCC) Take 1 Tablet by mouth every other day. 16 Tablet 5 10/19/2023 4 Discontinue d(Refill) Furosemide 20 MG Oral Tablet (Lasix)Indications :Acute decompensated heart failure (HCC) Take 1 Tablet by mouth in the morning. 100 Tablet 3 10/26/2023 4 Discontinue d(Medicatio n/Dose Changed) Hospital, Clinic, or Other Facility Administered Medication [...] CHF 05/26/2019 05/22/2022 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 nurse navigator 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 [...] mRNA, LNP-s, No Pre serve, 2-Dose Series ([employer]) 06/17/2021,11/14/2020,10/24/2020 Covid-19, Mrna, Lnp-s, Pf, B ivalent, [...] No 10/01/2023 Does the household have a [facility] source of income? (Household - for ages [...] as of this encounter Progress Notes * Abeba Marcum, [facility] - 03/28/2024 4:07 PM EDT Tarun Garcia is a 83 year old male. Objective: Review of patient's allergies indicates: Allergen Reactions Lisinopril Cough Current Outpatient Medications - WARNING: List may be incomplete due to filtering Medication Sig Dispense Refill Amiodarone HCl 200 MG Oral Tablet (Cordarone) Take 1 Tablet by mouth in the morning. 100 Tablet 3 Levothyroxine Sodium 112 MCG Oral Tablet (Levoxyl) Take 1 Tablet by mouth daily first thing in the morning. (at least 30 min prior to breakfast or other meds) 90 Tablet 1 Losartan Potassium 50 MG Oral Tablet (Cozaar) Take 1/2 Tablets by mouth in the morning and before bedtime. 90 Tablet 3 Multi-Vitamins Oral Tablet Take 1 Tablet by mouth in the morning. Tamsulosin HCl 0.4 MG Oral Capsule (Flomax) Take one capsule daily 90 Capsule 3 Vitamin C 500 MG Oral Tablet Chewable Take 1 Tablet by mouth in the morning. Nitroglycerin 0.4 MG Sublingual Tablet Sublingual (Nitrostat) place 1 tablet under the tongue every5 minutes as needed for pain, chest. up to 3 doses in 15 minutes 25 Tablet 0 Vitamin D3 25 MCG (1000 UT) Oral Tablet (Vitamin D3) Take by mouth 2 Tablets in the morning. 180 Tablet 1 Apixaban 2.5 MG Oral Tablet (Eliquis) Take 1 Tablet by mouth in the morning and 1 Tablet before bedtime. 180 Tablet 3 Furosemide 40 MG Oral Tablet (Lasix) Take 1 Tablet by mouth in the morning. 90 Tablet 3 Potassium Chloride Valentina ER 10 MEQ Oral Tablet Extended Release Take 1 Tablet by mouth in the morning. 90 Tablet 3 Ciprofloxacin HCl 500 MG Oral Tablet (Cipro) Take 1 Tablet by mouth in the morning and 1 Tablet before bedtime. Start day before biopsy. (Patient not taking: Reported on 03/16/2024) 6 Tablet 0 Atorvastatin Calcium 40 MG Oral Tablet (Lipitor) Take 1 Tablet by mouth in the morning. (Patient not taking: Reported on 03/16/2024) 90 Tablet 3 Clopidogrel Bisulfate 75 MG Oral Tablet (pLAVix) Take 1 Tablet by mouth in the morning. (Patient not taking: Reported on 03/16/2024) 90 Tablet 3 metFORMIN HCl 1000 MG Oral Tablet (Glucophage) TAKE ONE TABLET BY MOUTH EVERY DAY with breakfast (Patient not taking: Reported on 03/16/2024) 90 Tablet 3 Metoprolol Succinate ER 50 MG Oral Tablet Extended Release 24 Hour (toPROL XL) Take 1 Tablet by mouth 2 times a day. (Patient not taking: Reported on 03/16/2024) 180 Tablet 3 Nystatin 417579 UNIT/GM External Cream Apply topically to affected area 2 times a day. To affacted area for two weeks. (Patient not taking: Reported on 12/22/2023) 30 g 5 Clotrimazole 1 % External Cream (Lotrimin) Apply topically to affected area 2 times a day . (Patient not taking: Reported on 10/19/2023) 60 g 2 BiPAP every night at bedtime . (Patient not taking: Reported on 04/21/2023) oxygen GAS 1LPM bled through bipap (Patient not taking: Reported on 04/21/2023) 1 Each 0 Immunization History Administered Date(s) Administered COVID-19 mRNA, LNP-s, No Preserve, 2-Dose Series ([employer]) 10/24/2020, 11/14/2020, 06/17/2021 Covid-19, Mrna, Lnp-s, Pf, Bivalent, 30 Mcg, IM, 12 yrs and above ([employer]) 10/01/2022 Pneumococcal Conjugate Vacc, 13 Valent (Prevnar) 08/13/2015 Pneumococcal Polysaccharide PPV23 (Pneumovax) 07/07/2012 Seasonal Influenza, PF, 6 M & above, IM , (FluLaval or Fluzone) 06/04/2017, 05/05/2018, 05/25/2019, 05/28/2020 Seasonal Influenza, Quadrivalent Hd (Fluzone Hd) 06/05/2021, 04/27/2023 Seasonal Influenza, Quadrivalent, No Preserve, IM 08/13/2015, 08/18/2016 Seasonal Influenza, Split, IIV3, With Preserve, Inj 07/07/2012, 06/13/2013, 05/25/2014 Seasonal Influenza, Trivalent, Adjuvanted, 65+ yrs 06/27/2022 TDAP (age 10 and older)(Boostrix) 03/08/2013, 03/27/2023 Varicella Zoster Vaccine (Adult) 07/28/2014 Zoster Vaccine Recombinant (Shingrix) 06/06/2020, 07/24/2021, 12/02/2021 TMR Interventions Incomplete Encounter MTPs No medication therapy recommendations to display Complete Encounter MTPs No medication therapy recommendations to display Assessment & Plan Indication, effectiveness, safety and convenience of his medications were reviewed today. The patient's medical conditions were assessed, evaluated, and deemed meeting goals of drug therapy, with thefollowing exceptions. Additional Notes: See internet e commerce specialist note Summary Time Spent: 16-30 min Supervising pharmacist who provided the service: Abeba Marcum rafaela Takeaway Information Who was the recipient of the CMR service: beneficiary Language Template for the Patient Takeaway: Stateless I attest that I have reviewed and updated the patient's conditions, allergies, and medications to the best of my ability. Patient provided medication list gathered by: Paul Booth [facility] Abeba Marcum RPh 03/28/2024, 4:07 PM * Valeria Anglin, deputy coroner investigator - 03/16/2024 3:04 PM EDT aTrun Garcia is a 83 year old male. Objective: Review of patient's allergies indicates: Allergen Reactions Lisinopril Cough Current Outpatient Medications - WARNING: List may be incomplete due to filtering Medication Sig Dispense Refill Amiodarone HCl 200 MG Oral Tablet (Cordarone) Take 1 Tablet by mouth in the morning. 100 Tablet 3 Furosemide 20 MG Oral Tablet (Lasix) Take 1 Tablet by mouth in the morning. 100 Tablet 3 Apixaban 5 MG Oral Tablet (Eliquis) Take 1 Tablet by mouth in the morning and 1 Tablet before bedtime. 180 Tablet 3 Levothyroxine Sodium 112 MCG Oral Tablet (Levoxyl) Take 1 Tablet by mouth daily first thing in the morning. (at least 30 min prior to breakfast or other meds) 90 Tablet 1 Losartan Potassium 50 MG Oral Tablet (Cozaar) Take 1/2 Tablets by mouth in the morning and before bedtime. 90 Tablet 3 Multi-Vitamins Oral Tablet Take 1 Tablet by mouth in the morning. Potassium Chloride Valentina ER 10 MEQ Oral Tablet Extended Release Take 1 Tablet by mouth every other day. 16 Tablet 5 Tamsulosin HCl 0.4 MG Oral Capsule (Flomax) Take one capsule daily 90 Capsule 3 Vitamin C 500 MG Oral Tablet Chewable Take 1 Tablet by mouth in the morning. Nitroglycerin 0.4 MG Sublingual Tablet Sublingual (Nitrostat) place 1 tablet under the tongue every5 minutes as needed for pain, chest. up to 3 doses in 15 minutes 25 Tablet 0 Vitamin D3 25 MCG (1000 UT) Oral Tablet (Vitamin D3) Take by mouth 2 Tablets in the morning. 180 Tablet 1 Ciprofloxacin HCl 500 MG Oral Tablet (Cipro) Take 1 Tablet by mouth in the morning and 1 Tablet before bedtime. Start day before biopsy. (Patient not taking: Reported on 03/16/2024) 6 Tablet 0 Atorvastatin Calcium 40 MG Oral Tablet (Lipitor) Take 1 Tablet by mouth in the morning. (Patient not taking: Reported on 03/16/2024) 90 Tablet 3 Clopidogrel Bisulfate 75 MG Oral Tablet (pLAVix) Take 1 Tablet by mouth in the morning. (Patient not taking: Reported on 03/16/2024) 90 Tablet 3 metFORMIN HCl 1000 MG Oral Tablet (Glucophage) TAKE ONE TABLET BY MOUTH EVERY DAY with breakfast (Patient not taking: Reported on 03/16/2024) 90 Tablet 3 Metoprolol Succinate ER 50 MG Oral Tablet Extended Release 24 Hour (toPROL XL) Take 1 Tablet by mouth 2 times a day. (Patient not taking: Reported on 03/16/2024) 180 Tablet 3 Nystatin 049457 UNIT/GM External Cream Apply topically to affected area 2 times a day. To affacted area for two weeks. (Patient not taking: Reported on 12/22/2023) 30 g 5 Clotrimazole 1 % External Cream (Lotrimin) Apply topically to affected area 2 times a day . (Patient not taking: Reported on 10/19/2023) 60 g 2 BiPAP every night at bedtime . (Patient not taking: Reported on 04/21/2023) oxygen GAS 1LPM bled through bipap (Patient not taking: Reported on 04/21/2023) 1 Each 0 Immunization History Administered Date(s) Administered COVID-19 mRNA, LNP-s, No Preserve, 2-Dose Series ([employer]) 10/24/2020, 11/14/2020, 06/17/2021 Covid-19, Mrna, Lnp-s, Pf, Bivalent, 30 Mcg, IM, 12 yrs and above ([employer]) 10/01/2022 Pneumococcal Conjugate Vacc, 13 Valent (Prevnar) 08/13/2015 Pneumococcal Polysaccharide PPV23 (Pneumovax) 07/07/2012 Seasonal Influenza, PF, 6 M & above, IM , (FluLaval or Fluzone) 06/04/2017, 05/05/2018, 05/25/2019, 05/28/2020 Seasonal Influenza, Quadrivalent Hd (Fluzone Hd) 06/05/2021, 04/27/2023 Seasonal Influenza, Quadrivalent, No Preserve, IM 08/13/2015, 08/18/2016 Seasonal Influenza, Split, IIV3, With Preserve, Inj 07/07/2012, 06/13/2013, 05/25/2014 Seasonal Influenza, Trivalent, Adjuvanted, 65+ yrs 06/27/2022 TDAP (age 10 and older)(Boostrix) 03/08/2013, 03/27/2023 Varicella Zoster Vaccine (Adult) 07/28/2014 Zoster Vaccine Recombinant (Shingrix) 06/06/2020, 07/24/2021, 12/02/2021 TMR Interventions Incomplete Encounter MTPs No medication therapy recommendations to display Complete Encounter MTPs No medication therapy recommendations to display Assessment & Plan Indication, effectiveness, safety and convenience of his medications were reviewed today. The patient's medical conditions were assessed, evaluated, and deemed meeting goals of drug therapy, with thefollowing exceptions. Additional Notes: Patient denies any issues to medications. Patient is not currently taking Atorvastatin or Metformin. Patient states as his levels are within normal limits, he does not take these medications. Discussed with patient the importance of taking this medications as prescribed. Patient states his provider is aware he is not adherent to these medications. Patient states he is noticing a significant amount of swelling in his legs. Patient visited his provider recently to discuss this issue and his provider was considering increasing his Lasix dosing. Advised the patient his provider recommended an increase in Lasix to 40mg daily for 5 days on 03/13 per patient chart. Patient was unaware of this change and will increase his Lasix as directed. Advisedpatient to monitor his swelling and weight and contact his provider if he does not have any improvement. 35 minute CMR. Summary Time Spent: No Previous Data Supervising pharmacist who provided the service: No Previous Data Takeaway Information Who was the recipient of the CMR service: beneficiary Language Template for the Patient Takeaway: Stateless I attest that I have reviewed and updated the patient's conditions, allergies, and medications to the best of my ability. Patient provided medication list gathered by: Gabriel Villafana PHARM Tech 03/16/2024, 3:04 PM documented in this encounter Miscellaneous Notes * MTM Personal Medication List - Valeria Anglin PHARM Tech - 03/16/2024 2:41 PM EDT Medication How I take it Why I use it Prescriber Amiodarone HCl 200 MG Oral Tablet (Cordarone) Take 1 tablet by mouth in the morning. Heart Luiz Pina PA-C Apixaban 5 MG Oral Tablet (Eliquis) Take 1 tablet by mouth in the morning and 1 tablet before bedtime. Blood Thinner Sandra Jenkins MD Furosemide 20 MG Oral Tablet (Lasix) Take 1 tablet by mouth in the morning. Water Retention Luiz Pina PA-C Levothyroxine Sodium 112 MCG Oral Tablet (Levoxyl) Take 1 tablet by mouth daily first thing in the morning at least 30 min prior to breakfast or other medications. Thyroid Sandra Jenkins MD Losartan Potassium 50 MG Oral Tablet (Cozaar) Take one-half tablets by mouth in the morning and before bedtime. Blood Pressure Sandra Jenkins MD Multi-Vitamins Oral Tablet Take 1 tablet by mouth in the morning. General Health Self Nitroglycerin 0.4 MG Sublingual Tablet Sublingual (Nitrostat) Place 1 tablet under the tongue every5 minutes as needed for up to 3 doses in 15 minutes. Chest Pain Sandra Jenkins MD Potassium Chloride Valentina ER 10 MEQ Oral Tablet Extended Release Take 1 tablet by mouth every other day. General Health Sandra Jenkins MD Tamsulosin HCl 0.4 MG Oral Capsule (Flomax) Take one capsule by mouth daily. Urinary Retention Sandra Jenkins MD Vitamin C 500 MG Oral Tablet Chewable Take 1 tablet by mouth in the morning. General Health Self Vitamin D3 25 MCG (1000 UT) Oral Tablet (Vitamin D3) Take by mouth 2 tablets in the morning. General Health Snadra Jenkins MD * MTM To-Do-List - Valeria Anglin PHARM Tech - 03/16/2024 2:40 PM EDT Images from the original note were not included. What we talked about: What I should do: The importance of taking your medication as prescribed Your medicine works best when taken as prescribed. It can be hard to remember to take daily medications. Consider making it a part of your daily routine. Pair taking your medication with something you do every day, like brushing your teeth or eating a meal. Consider setting daily alarms to help remind yourself when it is time to take your medicine. Using a pill box can also help you organize your medicines. Pill boxes allow you to fill each day slot with your daily medicine and help you track when your next dose is due. What we talked about: What I should do: Checking your weight daily Weighing yourself daily will help you identify if your heart failure is getting worse. It is recommended that you weigh yourself at the same time every morning (after urinating, but before eating) wearing the same thing. Keep track of your weights on a daily basis. A weight gain of 3 pounds in one day or 5 pounds in one week indicates fluid accumulation and should be a sign to call your doctor. What we talked about: What I should do: [employer] Mail Order You can get a 90 day supply of your prescription medications delivered to your home. You also can be signed up for automatic refills. Typically, patients who switch to mail order save money on their monthly prescriptions. You will have access to a pharmacist to answer any questions about your medications (Wednesday- Wednesday, 6:30 am to 7 pm). Call [phone] to enroll in mail order services today. documented in this encounter Plan of Treatment Upcoming Encounters Date Type Department Care Team (Late st Contact Info) Description 03/29/2024 2:00 PM EDT Home Visit Chris at [facility] [address] [place] [address] Kelly Rosa RN [address] [facility] [place] [address] 04/07/2024 8:15 AM EDT Office Visit MOHS Surgery [facility] [address] [place] [address] Mary Jane Cordova MD [address] [place] [address] 04/17/2024 10:40 AM EDT Office Visit Ophthalmology, [facility] [address] [place] [address] Marshall Paez, DO [address] [place] [address] 04/19/2024 9:00 AM EDT Office Visit Urology, [facility] [address] [place] [address] Regan Alejandro MD [address] [place] [address] 04/20/2024 9:00 AM EDT Home Visit Chris at [place] [address] [place] [address] Jake Gilmore PA-C [address] [facility] [place] [address] 05/02/2024 2:45 PM EDT Office Visit Urology, [facility] [address] [place] [address] Regan Alejandro MD [address] [place] [id number] 05/12/2024 2:30 PM EDT Office Visit Cardiology, [facility] [address] [place] [address] Luiz Pina PA-C [address] [place] [address] 06/24/2024 9:00 AM EDT Office Visit Family Practice [facility] [address] [place] [address] Sandra Goldstein MD [address] [place] [address] [place] [address] 09/12/2024 10:30 AM EST Office Visit Cardiology [address] [place] [address] Luiz Pina PA-C [address] [place] [address] 10/24/2024 10:30 AM EST Nurse Only Ancillary [address] [place] [address] [place], Nurse Annual Wellness [address] [place] [address] [place] [address] Health Maintenance Due Date Last Done Comments COVID-19 Vaccine (2022- season) 2023 10/01/2022, 06/17/2021, 11/14/2020, Additional history exists Diabetic Foot Exam 04/21/2024 04/21/2023, 1 , 05/28/2020, Additional history exists Influenza Vaccine (FLU shot) (#1) 2024 04/27/2023, 06/27/2022, 06/05/2021, Additional history exists CKD HGB USE SMARTSET 26715 05/29/202405/29, 03/19/2023, 03/19/2023, Additional history exists CKD PHOS USE SMARTSET 39659 05/29/202402/2023, 10/01/2022, 12/04/2020, Additional history exists GFR 09/07/2024 03/07/2024, 10/21, 05/29/2023, Additional history exists HbA1c 09/07/2024 03/07/2024, 10/21, 05/29/2023, Additional history exists Adult Wellness Visit 10/20/2024 10/21/2023 Depression Screening 10/20/2024 10/21/2023 B-12 11/07/2024 11/08/2023, 020 04/2023, 12/04/2020, Additional history exists Albumin/Creatinine Ratio [...] this encounter Medical Devices Implanted Type Area Inspection Manager Device Identifier Shelf Expiration Date Model / Serial / Lot Sut Steel 6 M654g - [id number] Implanted:Qty: 4 on 10/21/2015 by Riki Chan MD at OR [facility] N/A: Chest JNJ : [employer] 07/22/2020 M654G / / [id number] Marker Coronary Amgm-Sd - [id number] Implanted:Qty: 1 on 10/21/2015 by Riki Chan MD at OR [facility] N/A: Chest [employer] 08/22/2018 AMGM-SD / / [id number] Marker Coronary Amgm-Sd - [id number] Implanted:Qty: 1 on 10/21/2015 by Riki Chan MD at OR [facility] Chest [employer] 06/22/2018 AMGM-SD / / [id number] documented as of this encounter Visit Diagnoses Diagnosis Referred for management of medication therapy- Primary Encounter for long-term (current) use of other medications documented in this encounter Advance Directives * [...] and were consensually agreed upon. Care Teams Multiple Tube Winding Machine Operator Relationship Specialty Start Date End Date Sandra Goldstein MD [address] [place] [address] [place] [id number] PCP - General Family Medicine 02/22/19 documented as of this encounter
--- OUTSIDE RECORDS SUMMARY | 2024-05-13 11:41 | External Medical Summary | Summary of Care ---
Author Name Unknown Organization [facility] Address [address] [place] [address] Phone [phone] Care Team Providers Care Dry Kiln Worker Name Role Phone Sandra Goldstein MD Primary Care Prov ider Reason for Visit * Reason Onset Date Comments [facility]: Maintenance 04/27/2024 Encounter Details Date Type Department Care Team (Late st Contact Info) Description 04/27/2024 Telephone [facility] [place] [address] [phone], Scheduling [address] [place] [address] [facility]: Maintenance Allergies Active Allergy Reactions Criticality Noted Date Comments Lisinopril Cough Low 12/21/2012 documented as of this encounter (statuses as of 04/27/2024) Medications Medication Sig Dispensed Refills Start Date [...] Oral Tablet (pLAVix)Indications: PAD (peripheral artery disease) ([facility]) Take 1 Tablet by mouth [...] below 150/90,Chronic ischemic heart disease,VF (ventricular fibrillation) ([facility]) Take 1 Tablet by mouth [...] Oral Capsule Take by mouth daily. Active [place] 3 1000 MG Oral Capsule Take by mouth daily. Active Levothyroxine Sodium 112 MCG Oral Tablet (Levoxyl)Indications :Hypothyroidism due to acquired atrophy of thyroid Take 1 Tablet by mouth daily first thing in the morning at least 30 min prior to breakfast or other meds 90 Tablet 3 04/11/2024 Active Nystatin 569853 UNIT/GM External CreamIndications:Can didal diaper dermatitis Apply [...] as of this encounter (statuses as of 04/27/2024) Active Problems Problem Noted Date Diagnosed Date [...] as of this encounter (statuses as of 04/27/2024) Resolved Problems Problem Noted Date Diagnosed Date [...] CHF 05/26/2019 05/22/2022 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 tax associate attorney 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 [...] as of this encounter (statuses as of 04/27/2024) Immunizations Name Administration Dates Next Due COVID-19 mRNA, LNP-s, No Pre serve, 2-Dose Series (TerraEchos) 06/17/2021,11/14/2020,10/24/2020 Covid-19, Mrna, Lnp-s, Pf, B ivalent, [...] No 10/01/2023 Does the household have a [facility] source [facility] income? (Household - for ages [...] Encounter - Mary Ann Alexander OSA - 04/27/2024 12:27 PM EDT [facility] request CIRA gonsales for pt. [facility] and [id number] documented in this encounter Plan of Treatment Upcoming Encounters Date Type Department Care Team (Late st Contact Info) Description 04/28/2024 8:30 AM EDT Home Visit [facility] [address] [facility] [place] [address] Kelly Rosa, JULIA [address] [facility] [place] [address] 05/02/2024 2:45 PM EDT Office Visit Urology, [facility] [address] [facility] [place] [address] Regan Alejandro MD [address] [place] [address] 05/03/2024 11:00 AM EDT Office Visit Ophthalmology, [facility] [address] [facility] [place] [address] Marshall Paez, [address] [facility] [place] [address] 05/12/2024 2:30 PM EDT Office Visit Cardiology, [facility] [address] [place] [address] Luiz Pina PA-C [address] [place] [address] 06/24/2024 9:00 AM EDT Office Visit Family Practice [facility] [address] [place] [address] Sandra Goldstein MD [address] [place] [address] [place] [address] 09/12/2024 10:30 AM EST Office Visit Cardiology [address] [place] [address] Luiz Pina PA-C [address] [place] [address] 10/24/2024 10:30 AM EST Nurse Only Ancillary [address] [place] [address] [place], Nurse Annual [address] [place] [address] Health Maintenance Due Date Last Done Comments Diabetic Foot Exam 04/21/2024 04/21/2023, 1 , 05/28/2020, Additional history exists COVID-19 Vaccine (2022- season) 2024 10/01/2022, 06/17/2021, 11/14/2020, Additional history exists Influenza Vaccine (FLU shot) (#1) 2024 04/27/2023, 06/27/2022, 06/05/2021, Additional history exists CKD HGB USE SMARTSET 51775 05/29/202405/29, 03/19/2023, 03/19/2023, Additional history exists CKD PHOS USE SMARTSET 38729 05/29/202402/2023, 10/01/2022, 12/04/2020, Additional history exists GFR [...] 03/07/2024, 11/0 04/2023, 05/29/2023, Additional history exists DTap/Tdap Vaccines [...] this encounter Medical Devices Implanted Type Area Finish Grinder Device Identifier Shelf Expiration Date Model / Serial / Lot Sut Steel 6 [id number] - [id number] Implanted:Qty: 4 on 10/21/2015 by Riki Chan MD at OR [facility] N/A: Chest JNJ : [employer] 07/22/2020 [id number] / / [id number] Marker Coronary Am-Sd - [id number] Implanted:Qty: 1 on 10/21/2015 by Riki Chan MD at OR [facility] N/A: Chest [employer] 08/22/2018 [facility] / / [id number] Marker Coronary [facility] - [id number] Implanted:Qty: 1 on 10/21/2015 by Riki Chan MD at [facility] Chest [employer] 06/22/2018 [facility] / / [id number] documented as of this encounter Advance Directives [...] and were consensually agreed upon. Care Teams Dry Kiln Worker Relationship Specialty Start Date End Date Sandra Goldstein MD [address] [place] [address] [place] [address] PCP - General Family Medicine 02/22/19 documented as of this encounter
--- OUTSIDE RECORDS SUMMARY | 2024-05-13 11:41 | External Medical Summary | Summary of Care ---
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)*; Type 2 diabetes mellitus with stage 3b chronic kidney disease, without long-term current use of insulin (HCC); PAD (peripheral artery disease) ([facility]); BHUPINDER (obstructive sleep apnea); Generalized weakness; Advanced care planning/counseling discussion Allergies Active Allergy Reactions Criticality Noted Date Comments Lisinopril Cough Low 12/21/2012 documented as of this encounter (statuses as of 04/21/2024) Medications Medication Sig Dispensed Refills Start Date [...] Oral Tablet (pLAVix)Indications: PAD (peripheral artery disease) ([facility]) Take 1 Tablet by mouth [...] Oral Capsule Take by mouth daily. Active Atlantic 3 1000 MG Oral Capsule Take by mouth daily. Active Levothyroxine Sodium 112 MCG Oral Tablet (Levoxyl)Indications :Hypothyroidism due to acquired atrophy of thyroid Take 1 Tablet by mouth daily first thing in the morning at least 30 min prior to breakfast or other meds 90 Tablet 3 04/11/2024 Active Nystatin 721915 UNIT/GM External CreamIndications:Can didal diaper dermatitis Apply topically to affected area 2 times a day for two weeks. 30 g 5 04/11/2024 Active Hospital, Clinic, or Other Facility Administered Medication Ordered Dose Route Frequency Start Date End Date Status Nystatin (Nystop) powderIndications:Tinea cruris TOP BID (.AM/PM) 06/10/2021 Active documented as of this encounter (statuses as of 04/21/2024) Active Problems Problem Noted Date Diagnosed Date [...] as of this encounter (statuses as of 04/21/2024) Resolved Problems Problem Noted Date Diagnosed Date [...] CHF 05/26/2019 05/22/2022 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 food and beverage lead 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 [...] as of this encounter (statuses as of 04/21/2024) Immunizations Name Administration Dates Next Due COVID-19 [...] as of this encounter Progress Notes * Jake Gilmore PA-C - 04/20/2024 9:30 AM EDT Images from the original note were not included. 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) (Primary) Assessment & Plan: "RED FLAG" HF Symptoms: [...] currently sits with legs down all day #2 Type 2 diabetes mellitus with stage 3b chronic kidney disease, without long- term current use of insulin ([facility]) Assessment & Plan: Diet controlled Most recent A1c 5.5% #3 PAD (peripheral artery disease) ([facility]) Assessment & Plan: Following with vascular surgery #4 BHUPINDER (obstructive sleep apnea) Overview: AHI 34 on baseline PSG 05/28/13 DME: [facility] 07/24/13 auto CPAP to set pressure of 13 cm Assessment & Plan: Declines use of CPAP, has not used for >2 years #5 Generalized weakness #6 Advanced care planning/counseling discussion Additional Medical Decision Making: Patient lives alone 2 story home with 1st floor setup Independent with ADLs and manages own medications Goals of care reviewed, would be ok with CPR at this time, but would not want to live prolonged on [facility] health care agent toyin Rueda (daughter in [place]) Also has a daughter that lives in [place] Lost his son a few years ago due to [place] Will order rollator walker due to weakness and fall risk States he is scheduled to start therapy soon with [facility] Awaiting prostate biopsy, reviewed meds to hold with patient Scheduled appointments in the next 60 days: Future Appointments-next 60 days Date/Time Provider Specialty Dept Phone 04/25/2024 11:30 AM (Arrive by 11:15 AM) Regan Alejandro MD Urology [phone] 04/28/2024 8:30 AM Kelly Rosa RN [facility] [phone] 05/02/2024 2:45 PM (Arrive by 2:30 PM) Regan Alejandro MD Urology [phone] 05/03/2024 11:00 AM (Arrive by 9:00 AM) Marshall Paez, DO Ophthalmology [phone] 05/12/2024 2:30 PM (Arrive by 2:15 PM) Luiz Pina PA-C Cardiology [phone] 06/24/2024 9:00 AM (Arrive by 8:45 AM) Sandra Goldstein MD Family Medicine [phone] 09/12/2024 10:30 AM (Arrive by 10:15 AM) Luiz Pina PA-C Cardiology [phone] 10/24/2024 10:30 AM Nurse Juliann [facility] Ancillary [phone] A total of 45 minutes was spent face to face (via video-based telemedicine if designated as a telemedicine visit) Subjective Subjective Is this a Telemedicine Visit? No, this is an Home Visit. Reason For [facility] Visit: Enrollment Current Concerns: Earl Garcia is a 83 year old male seen today for a [facility] provider visit. PMH includes CHF, CAD, afib, HTN, dyslipidemia, BHUPINDER not on cpap, PAD, DM2, cKD3 Today's concerns are: Reports gradual decreased ambulation over the past few months, related to weakness and occasional RECIO Feels limited at times by ambulation Borrowed a friends walker recently for a postcard show and is requesting his own to improve indepence He is otherwise feeling well today Denies SOB at rest Denies chest pain, cough, fever/chills Appetite fair, only eating 1 good meal daily, not typically hungry States he lost about 30-40lbs over the last year, unplanned He does have elevated PSA Following with urology and has biopsy scheduled next week Voiding ok, stream is weak, but denies retention or hematuria Currently following with podiatry/wound clinic in [place] for wounds to RLE Additional Objective Objective There were no vitals filed for this visit. Last Weights: Wt Readings from Last 3 Encounters: 03/08/24 95.4 kg (210 lb 6.4 oz) 03/07/24 96.2 kg (212 lb) 12/22/23 90.7 kg (200 lb) Last BPs: BP Readings from Last 4 Encounters: 03/29/24 118/72 03/08/24 104/58 03/07/24 110/70 12/22/23 102/58 General: alert and no distress Neuro: alert & oriented x 3 with fluent speech Heart: regular rate & rhythm and no murmur Lungs: lungs clear to auscultation, no wheeze, no rales, no rhonchi Abdomen: abdomen soft, non-tender, normal bowel sounds, and no rebound or guarding Ext: +2 edema bilat LE Lab Review: I have reviewed the following results: Imaging results in the last 6 months XR FOOT 3 OR MORE VIEWS Result Date: 12/12/2023 IMPRESSION No radiographic evidence of acute osseous injury. VASC ANKLE BRACHIAL INDICES WITHOUT PPG (PAD) Result Date: 11/08/2023 : ENRIQUE at rest is calcified on the right and 1.0 on the left. For the right lower extremity: The actual ankle brachial index could not be calculated due to medial calcinosis. Lower extremity Doppler Evaluation is consistent with moderate arterial occlusive disease. Great toe pressure is 62. PPG tracing of the great toe has decreased amplitude. For the left lower extremity: Lower extremity Doppler Evaluation is normal at rest with no evidence of significant arterial occlusive disease. Great toe pressure is 74. PPG tracing of the great toe has decreased amplitude. XR FOOT 3 OR MORE VIEWS Result Date: 11/05/2023 IMPRESSION 1. Soft tissue swelling without acute osseous abnormality. 2. 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 BMP results Recent Labs Units 03/07/24 1234 11/08/23 1135 05/29/23 0000 03/19/23 1158 SODIUM - [facility] mmol/L 139 140 -- 139 POTASSIUM - [facility] mmol/L 4.7 4.6 -- 4.4 POTASSIUM-OUTSIDE LAB MMOL/L -- -- 4.5 -- CHLORIDE - [facility] mmol/L 103 105 -- 101 CO2 - [facility] mmol/L 23 24 -- 26 CREATININE - [facility] mg/dL 1.6* 1.7* -- 1.5* CREATININE-OUTSIDE LAB MG/DL -- -- 1.42* -- BUN - [facility] mg/dL 25* 27* -- 21* Lipid panel results Recent Labs Units 05/29/23 0000 10/01/22 1033 CHOLESTEROL - [facility] mg/dL -- 149 CHOLESTEROL-OUTSIDE LAB MG/DL 125 -- LDL (CALCULATED)-OUTSIDE LAB MG/DL 70.80 -- HDL CHOLESTEROL - [facility] mg/dL -- 16* HDL-OUTSIDE LAB MG/DL 19.0* -- TRIGLYCERIDES - [facility] mg/dL -- 409* TRIGLYCERIDES-OUTSIDE LAB MG/DL 176 -- CBC results Recent Labs Units 05/29/23 0000 03/19/23 1158 10/01/22 1033 WBC K/uL -- 8.32 -- HGB GM/DL 11.8* 12.7* 16.1 HCT % -- 40.5 -- PLT K/uL -- 131* -- HbA1c results Recent Labs Units 03/07/24 1234 11/08/23 1135 05/29/23 0000 HEMOGLOBIN A1C - [facility] % 5.5 5.5 -- HEMOGLOBIN, [id number] LAB % -- -- 5.7* Medication Review "Bottles Out" medication review performed today and medication list in EMR updated Jake Gilmore PA-C 9:30 AM *Communication sent to PCP (via autofax if non-[facility]), [facility] Health Care Team members,relevant Specialty Care Physicians* documented in this encounter Miscellaneous Notes * ACP (Advance Care Planning) - Jake Gilmore PA-C - 04/20/2024 10:43 AM EDT Images from the original note were not included. Patient-centered Communication 04/20/2024 The patient/surrogate voluntarily agreed to participate in advance care planning discussion. They were advised that this is a separate service which may incur out of pocket cost in the form of copayment and/or deductibles. Location: Home Individual(s) present for conversation: Patient Decisions Synopsis SmartLink Most Recent Value Past ~10 years 04/20/2024 10:42 Decisions CPR decision: Patient chooses CPR 04/20/2024 Patient chooses CPR Intubation/Mechanical Ventilation decision: Patient chooses Intubation/mechanical ventilation short term only, would not want to be kept on if no hope for survival 04/20/2024 Patient chooses Intubation/mechanical ventilation short term only, would not want to be kept on if no hope for survival Non-invasive ventilation or BIPAP decision: Patient chooses non-invasive ventilation. Select interventions below 03/29/2024 Non-Invasive Ventilation Interventions: NIV 03/29/2024 Antibiotic therapy decision: Patient chooses Antibiotic therapy 04/20/2024 Patient chooses Antibiotic therapy Artificial nutrition decision: Declines Artificial nutrition 03/29/2024 IV hydration decision: Patient chooses IV hydration 04/20/2024 Patient chooses IV hydration Chemotherapy decision: Undecided about Chemotherapy 03/29/2024 Radiation therapy decision: Undecided about Radiation therapy 03/29/2024 Surgical procedure(s) decision: Undecided about Surgical procedure 03/29/2024 Blood transfusion decision: Patient chooses Blood transfusion 03/29/2024 Lab draw decision: Patient chooses Lab draws 04/20/2024 Patient chooses Lab draws Dying at home decision: Patient chooses Dying at home 04/20/2024 Patient chooses Dying at home Dialysis decision: Declines Dialysis 03/29/2024 Additional Comments Synopsis SmartLink Most Recent Value Past ~10 years 04/20/2024 10:42 Additional Comments Additional Comments: Carolyn (daughter) is health care agent 04/20/2024 Carolyn (daughter) is health care agent Discerning What Matters Most to the Patient: [employer] Most Recent Value Past ~10 years 04/20/2024 10:40 Discerning What Matters Most to the Patient In their own words, patient's UNDERSTANDING of their illness is: "other than my walking and occasional SOB, I feel pretty good for my age" 04/20/2024 "other than my walking and occasional SOB, I feel pretty good for my age" Their current SYMPTOMS include: Shortnes of breath;Reduced overall well being 04/20/2024 Shortnes of breath;Reduced overall well being They say their illness has CHANGED THEIR LIFE by: -- "I can't do the things I used to be able to do, it forces me to slow down" 10/21/2023 The patient thinks COMPLICATIONS in the future may be: More pain 10/21/2023 The patient's HOPES are: Maintain current functional abilities;Avoid the correction 04/20/2024 Maintain current functional abilities;Avoid the correction The patient defines LIVING WELL as: living independently, I would like to find a girlfriend becauseI hate being lonely. I loved to travel 10/21/2023 The patient's FEARS/WORRIES about illness are: Going to a correction 04/20/2024 Going to a correction The patient's PRIOR EXPERIENCES: states his is currently a "vegetable" in a correction 04/20/2024 states his is currently a "vegetable" in a correction The patient considers these as 'UNACCEPTABLE OUTCOMES': Prolonged mechanical ventilation (define below);Prolonged correction stay (define below) 04/20/2024 Prolonged mechanical ventilation (define below);Prolonged correction stay (define below) Prolonged correction stay, patient defines as: any correction stay 04/20/2024 any correction stay Prolonged mechanical ventilation, patient defines as: more than a few days 04/20/2024 more than a few days The patient's cultural or spiritual BELIEFS that may affect health care decisions: pt states he is a "born again" Atheist 10/21/2023 Source: Content from [employer] Program Aligning Care With What Matters Most: [employer] Most Recent Value Past ~10 years 04/20/2024 10:42 Aligning Care With What Matters Most In their own words, the patient's understanding of their prognosis: "I feel my health is good compared to others my age, I do have a defibulater and the high tryglycerides. My feet are probably what bothers me most with pain and ulcer and not the greatest with balance. " 10/21/2023 Interventions/Choices: CPR;Intubation/mechanical ventilation;Antibiotic therapy;IV hydration; athome;Lab draws 04/20/2024 CPR;Intubation/mechanical ventilation;Antibiotic therapy;IV hydration; at home;Lab draws Source: Content from [employer] Program 20 minutes spent in direct [id number] discussion rodrick, Jake Gilmore PA-C * Assessment & Plan Note - Jake Gilmore PA-C - 04/20/2024 10:39 AM EDT Associated Problem(s): Type 2 diabetes mellitus with stage 3b chronic kidney disease, without long-term current use of insulin (HCC) Diet controlled Most recent A1c 5.5% * Assessment & Plan Note - Jake Gilmore PA-C - 04/20/2024 10:39 AM EDT Associated Problem(s): PAD (peripheral artery disease) (HCC) Following with vascular surgery * Assessment & Plan Note - Jake Gilmore PA-C - 04/20/2024 10:39 AM EDT Associated Problem(s): BHUPINDER (obstructive sleep apnea) Declines use of CPAP, has not used for >2 years * Assessment & Plan Note - Jake Gilmore PA-C - 04/20/2024 10:38 AM EDT Associated Problem(s): Hypertensive heart disease with systolic heart failure and stage 3b chronic kidney disease (HCC) "RED FLAG" HF Symptoms: Leg Swelling Abdominal [...] currently sits with legs down all day documented in this encounter Plan of Treatment Upcoming Encounters Date Type Department Care Team (Late st Contact Info) Description 04/25/2024 11:30 AM EDT Office Visit Urology, [facility] [address] [facility] [place] [address] Regan Alejandro MD [address] [place] [address] 04/28/2024 8:30 AM EDT Home Visit [facility] [address] [facility] [place] [address] Kelly Rosa RN [address] [facility] [place] [address] 05/02/2024 2:45 PM EDT Office Visit Urology, [facility] [address] [facility] [place] [address] Regan Alejandro MD [address] [place] [address] 05/03/2024 11:00 AM EDT Office Visit Ophthalmology, [facility] [address] [facility] [place] [address] Marshall Paez, DO [address] [place] [address] 05/12/2024 2:30 PM EDT Office Visit Cardiology, [facility] [address] [place] [address] Luiz Pina PA-C [address] [place] [address] 06/24/2024 9:00 AM EDT Office Visit Family Practice [facility] [address] [facility] [place] [place] [address] Sandra Goldstein MD [address] [place] [address] [place] [id number] 09/12/2024 10:30 AM EST Office Visit Cardiology [address] [place] [address] Luiz Pina PA-C [address] [place] [address] 10/24/2024 10:30 AM EST Nurse Only Ancillary [address] [place] [address] [place], Nurse [facility] [address] [place] [address] [place] [id number] Health Maintenance Due Date Last Done Comments COVID-19 Vaccine (2022- season) 2023 10/01/2022, 06/17/2021, 11/14/2020, Additional history exists Diabetic Foot Exam 04/21/2024 04/21/2023, 1 , 05/28/2020, Additional history exists Influenza Vaccine (FLU shot) (#1) 2024 04/27/2023, 06/27/2022, 06/05/2021, Additional history exists CKD HGB USE SMARTSET 43265 05/29/202405/29, 03/19/2023, 03/19/2023, Additional history exists CKD PHOS USE SMARTSET 63880 05/29/2024 10/0 02/2023, 10/01/2022, 12/04/2020, Additional history [...] this encounter Medical Devices Implanted Type Area Calculus Professor Device Identifier Shelf Expiration Date Model / Serial / Lot Jenelle Srinivasan 6 [id number] - [id number] Implanted:Qty: 4 on 10/21/2015 by Riki Chan MD at OR [facility] N/A: Chest JNJ : [employer] 07/22/2020 [id number] / / [id number] Marker Coronary Amgm-Sd - [id number] Implanted:Qty: 1 on 10/21/2015 by Riki Chan MD at OR [facility] N/A: Chest [employer] 08/22/2018 AMGM-SD / / [id number] Marker Coronary Amgm-Sd - [id number] Implanted:Qty: 1 on 10/21/2015 by Riki Chan MD at OR [facility] Chest [employer] 06/22/2018 AMGM-SD / / [id number] documented as of this encounter Visit Diagnoses Diagnosis 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 Care Teams Entry Level Account Manager Relationship Specialty Start Date End Date Sandra Goldstein MD [address] [place] [address] [place] [id number] PCP - General Family Medicine 02/22/19 documented as of this encounter
--- OUTSIDE RECORDS SUMMARY | 2024-05-13 11:41 | External Medical Summary | Summary of Care ---
Author Name Unknown Organization [facility] Address [address] [place] [address] Phone [phone] Care Team Providers Care Windmill Mechanic Name Role Phone Sandra Goldstein MD Primary Care Prov ider Reason for Visit * Reason Comments Eye Exam * Evaluate & Treat - Unlimited Visits (Within 30 days (routine)) - Authorized Specialty Diagnoses / Procedures Referred By Damari amezcua Referred To Contact Ophthalmology Diagnoses Entropion Daylin Jackson, OD [address] [place] [address] Referral ID Status Reason Start Date Expiration Date Visits Requested Visits Authorized [id number] Authorized Specialty Services Required 01/25/2024 [id number] Encounter Details Date Type Department Care Team (Late st Contact Info) Description 04/17/2024 10:40 AM EDT Office Visit Ophthalmology, [facility] [address] [place] [address] Marshall Paez, [address] [place], [place] [id number] Spastic entropion of right eye* Allergies Active Allergy Reactions Criticality Noted Date Comments Lisinopril Cough Low 12/21/2012 documented as of this encounter (statuses as of 04/17/2024) Medications Medication Sig Dispensed Refills Start Date [...] Oral Capsule Take by mouth daily. Active [place] 3 1000 MG Oral Capsule Take by mouth daily. Active Levothyroxine Sodium 112 MCG Oral Tablet (Levoxyl)Indications :Hypothyroidism due to acquired atrophy of thyroid Take 1 Tablet by mouth daily first thing in the morning at least 30 min prior to breakfast or other meds 90 Tablet 3 04/11/2024 Active Nystatin 157994 UNIT/GM External CreamIndications:Can didal diaper dermatitis Apply topically to affected area 2 times a day for two weeks. 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 Mild FBS reported. Hx of left eye LTS quickert Ophthalmology Past History: cataract extraction both eyes, glasses Ophthalmology Family History: none Ophthalmology ROS: Positive for left eyelid rolling in and no recent significant change in vision,no eye pain, redness, discharge,no diplopia Current Ophthalmic Medications: None EXAM: Base Eye Exam Visual Acuity (Snellen - Linear) Right Left Dist sc 20/30 20/30 Slit Lamp and Fundus Exam Slit Lamp Exam Right Left Lids/Lashes spastic entropion easy to reduce good apposition Conjunctiva/Sclera White and quiet White and quiet Cornea inf SPK mild Clear Anterior Chamber Deep and quiet Deep and quiet Iris Round and reactive Round and reactive Lens PC IOL PC IOL IMPRESSION: 1. Spastic entropion Rll PLAN: 1. Photo today 2. RTC for LTS quickert rll 3. Clear 3 days elliquis hold 4. R/B/A discussed including but not limited to pain, bleeding, scarring, infection, Loss of vision, loss of eye, need for further surgery, eye drops in the post operative period, the use of regionalor general anesthesia. Marshall Paez DO documented in this encounter Nursing Notes * Sandra Gardner TECH - 04/17/2024 10:38 AM EDT C Junior Garcia is a 83 year old male who presents for follow up. Last Visit: 11/08/2023 (in office), Visit date not found (telemedicine) He currently states states had surgery left eye now being referred for right as well, lower lid Are you diabetic? No Current Ophthalmic Medications: None VA, IOP, current eyeglass Rx, and pupil check and dilation if needed can be found in ophth exam. documented in this encounter Plan of Treatment Upcoming Encounters Date Type Department Care Team (Late st Contact Info) Description 04/19/2024 9:00 AM EDT Office Visit Urology, [address] [place] [address] Regan Alejandro MD [address] [place] [address] 04/20/2024 9:00 AM EDT Home Visit [facility], [facility] [address] [facility] [place] [address] Jake Gilmore PA-C [address] [place] [address] 04/28/2024 8:30 AM EDT Home Visit [facility], [facility] [place] [address] Kelly Rosa RN [address] [place] [address] 05/02/2024 2:45 PM EDT Office Visit Urology, [facility] [address] [facility] [place] [address] Regan Alejandro MD [address] [place] [address] 05/12/2024 2:30 PM EDT Office Visit Cardiology, [facility] [address] [facility] [place] [address] Luiz Pina PARaheemC [address] [facility] [place] [address] 06/24/2024 9:00 AM EDT Office Visit Family Practice [facility] [place] [address] Sandra Goldstein MD [address] [place] [address] [place] [address] 09/12/2024 10:30 AM EST Office Visit Cardiology [address] [place] [address] Luiz Pina PA-C [address] [place] [address] 10/24/2024 10:30 AM EST Nurse Only Ancillary [address] [place] [address] [place], Nurse [facility] [address] [place] [address] [place] [address] Scheduled Orders Name Type Priority Associated Diagnoses Orde r Schedule EXTERNAL EYE PHOTOGRAPHY Procedures Routine Spastic entropion of right eye Ordered: 04/17/2024 Health Maintenance Due Date Last Done Comments COVID-19 Vaccine ( season) 2023 10/01/2022, 06/17/2021, 11/14/2020, Additional history exists Diabetic Foot Exam 04/21/2024 04/21/2023, 1 , 05/28/2020, Additional history exists Influenza Vaccine (FLU shot) (#1) 2024 04/27/2023, 06/27/2022, 06/05/2021, Additional history exists CKD HGB USE SMARTSET 72428 05/29/202405/29, 03/19/2023, 03/19/2023, Additional history exists CKD PHOS USE SMARTSET 63631 05/29/2024 10/02/2023, 10/01/2022, 12/04/2020, Additional history exists GFR 09/07/2024 [...] this encounter Medical Devices Implanted Type Area Anthropology Department Chair Device Identifier Shelf Expiration Date Model / Serial / Lot Sut Steel 6 M654g - [id number] Implanted:Qty: 4 on 10/21/2015 by Riki Chan MD at OR [facility] N/A: Chest JNJ : [employer] 07/22/2020 [id number] / / [id number] Marker Coronary Amgm-Sd - [id number] Implanted:Qty: 1 on 10/21/2015 by Riki Chan MD at OR [facility] N/A: Chest [employer] 08/22/2018 AMGM-SD / / [id number] Marker Coronary Amgm-Sd - [id number] Implanted:Qty: 1 on 10/21/2015 by Riki Chan MD at OR [facility] Chest [employer] 06/22/2018 [employer]-SD / / [id number] documented as of this encounter Visit Diagnoses [...] and were consensually agreed upon. Care Teams Windmill Mechanic Relationship Specialty Start Date End Date Sandra Goldstein MD [address] [place] [address] [place] [id number] PCP - General Family Medicine 02/22/19 documented as of this encounter
--- OUTSIDE RECORDS SUMMARY | 2024-05-13 11:41 | External Medical Summary | Summary of Care ---
Author Name Unknown Organization [facility] Address [address] [place] [address] Phone [phone] Care Team Providers Care Boarder Machine Name Role Phone Sandra Goldstein MD Primary Care Prov ider Reason for Visit * Reason Onset Date Comments Advice 04/27/2024 ICD check Encounter Details Date Type Department Care Team (Late st Contact Info) Description 04/27/2024 Telephone [facility] [address] [place] [address] Marshall Paez, [address] [place] [address] Advice (ICD check) Allergies Active Allergy Reactions Criticality Noted Date [...] Oral Capsule Take by mouth daily. Active [place] 3 1000 MG Oral Capsule Take by mouth daily. 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 Paez on 05/03/24 that will involve electrocautery. Please advise if ICD check will need done in office or at home. Thank you documented in this encounter Plan of Treatment Upcoming Encounters Date Type Department Care Team (Late st Contact Info) Description 04/28/2024 8:30 AM EDT [facility] [place] [address] [facility] [place] [address] Kelly Rosa, JULIA [address] [facility] [place] [address] 05/02/2024 2:45 PM EDT Office Visit Urology, [facility] [address] [facility] [place] [address] Regan Alejandro MD [address] [place] [address] 05/03/2024 11:00 AM EDT Office Visit Ophthalmology, [facility] [address] [facility] [place] [address] Marshall Paez, DO [address] [facility] [place] [address] 05/12/2024 2:30 PM EDT Office Visit Cardiology, [facility] [address] [place] [address] Luiz Pina PA-C [address] [place] [address] 06/24/2024 9:00 AM EDT Office Visit Family Practice [facility] [address] [place] [address] Sandra Goldstein MD [address] [place] [address] [place] [address] 09/12/2024 10:30 AM EST Office Visit Cardiology [address] [place] [address] Luiz Pina PA-C [address] [place] [address] 10/24/2024 10:30 AM EST Nurse Only Ancillary [address] [place] [address] [place], Nurse Annual [address] [place] [address] Health Maintenance Due Date Last Done Comments Diabetic Foot Exam 04/21/2024 04/21/2023, 1 , 05/28/2020, Additional history exists COVID-19 Vaccine ( season) 2024 10/01/2022, 06/17/2021, 11/14/2020, Additional history exists Influenza Vaccine (FLU shot) (#1) 2024 04/27/2023, 06/27/2022, 06/05/2021, Additional history exists CKD HGB USE SMARTSET 76464 05/29/202405/29, 03/19/2023, 03/19/2023, Additional history exists CKD PHOS USE SMARTSET 72035 05/29/202402/2023, 10/01/2022, 12/04/2020, Additional history exists GFR [...] this encounter Medical Devices Implanted Type Area Departure Clerk Device Identifier Shelf Expiration Date Model / Serial / Lot Sut Steel 6 M654g - [id number] Implanted:Qty: 4 on 10/21/2015 by Riki Chan MD at OR [facility] N/A: Chest JNJ : [employer] 07/22/2020 M654G / / [id number] Marker Coronary Am-Sd - [id number] Implanted:Qty: 1 on 10/21/2015 by Riki Chan MD at OR [facility] N/A: Chest [employer] 08/22/2018 [facility] / / [id number] Marker [facility]ary [facility] [id number] Implanted:Qty: 1 on 10/21/2015 by Riki Chan MD at OR [facility] Chest [employer] 06/22/2018 [facility] / / [id number] documented as of this encounter Advance Directives [...] and were consensually agreed upon. Care Teams Boarder Machine Relationship Specialty Start Date End Date Sandra Goldstein MD [address] [place] [address] [place] [id number] PCP - General Family Medicine 02/22/19 documented as of this encounter
--- OUTSIDE RECORDS SUMMARY | 2024-05-13 11:41 | External Medical Summary | Summary of Care ---
Author Name Unknown Organization [facility] [address] [address] Phone [phone] Care Team Providers Care Office Employee Name Role Phone Sandra Goldstein MD Primary Care Prov ider Reason for Visit * Reason Comments [facility]: Enrollment Encounter Details Date Type Department Care Team (Late st Contact Info) Description 03/29/2024 2:00 PM EDT Home Visit [facility], [facility] [address] [facility] [place] [address] Kelly Rosa, JULIA [address] [facility] [place] [address] Advanced care planning/counseling discussion* Allergies Active Allergy Reactions Criticality Noted Date Comments Lisinopril Cough Low 12/21/2012 documented as of this encounter (statuses as of 04/03/2024) Medications Medication Sig Dispensed Refills Start Date [...] the morning. 90 Tablet 3 10/19/2023 Active Levothyroxine Sodium 112 MCG Oral Tablet [...] bedtime. 90 Tablet 3 10/19/2023 Active Nystatin 047685 UNIT/GM External CreamIndications:Ca ndidal diaper dermatitis Apply [...] Oral Capsule Take by mouth daily. Active [place] 3 1000 MG Oral Capsule Take by mouth daily. Active Atorvastatin Calcium 40 MG Oral Tablet (Lipitor)Indication s:Type 2 diabetes mellitus with hemoglobin A1c goal of less than 8.0% ([facility]),Coronary artery disease involving kasaan coronary artery of kasaan heart without angina pectoris Take 1 Tablet by mouth in the morning. 90 Tablet 3 10/19/2023 4 Discontinu ed(Medicat ion List Clean Up) metFORMIN HCl 1000 MG Oral Tablet (Glucophage)Indicat ions:Type 2 diabetes mellitus with stage 3b chronic kidney disease, without long-term current use of insulin ([facility]) TAKE ONE TABLET BY MOUTH EVERY DAY with breakfast 90 Tablet 3 10/19/2023 4 Discontinu ed(Medicat ion List Clean Up) Ciprofloxacin HCl 500 MG Oral Tablet (Cipro) Take 1 Tablet by mouth in the morning and 1 Tablet before bedtime. Start day before biopsy. 6 Tablet 11/08/2023 4 Discontinu ed(Medicat ion List Clean Up) Hospital, Clinic, or Other Facility Administered Medication Ordered Dose Route Frequency Start Date End Date Status Nystatin (Nystop) powderIndications:Tinea cruris TOP BID (.AM/PM) 06/10/2021 Active documented as of this encounter (statuses as of 04/03/2024) Active Problems Problem Noted Date Diagnosed Date [...] as of this encounter (statuses as of 04/03/2024) Resolved Problems Problem Noted Date Diagnosed Date [...] CHF 05/26/2019 05/22/2022 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 ramp service man 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 [...] as of this encounter (statuses as of 04/03/2024) Immunizations Name Administration Dates Next Due COVID-19 [...] No 10/01/2023 Does the household have a [facility] source of income? (Household - for ages [...] Sign Reading Time Taken Comments Blood Pressure 118/72 03/29/2024 1:30 PM EDT Pulse 72 03/29/2024 1:30 PM EDT Temperature 36.1 C (96.9 F) 03/29/2024 1:30 PM ED T Respiratory Rate 18 03/29/2024 1:30 PM EDT Oxygen Saturation 97% 03/29/2024 1:30 PM EDT Inhaled Oxygen Concentration - - [...] Progress Notes * Kelly Rosa RN - 03/29/2024 12:34 PM EDT [facility] Visit Date: 03/29/2024 Time: 12:35 PM Name: Earl Garcia : 1940 Current Concerns: Patient seen for [facility] enrollment. Medical history- Afib, CHF, CAD, BHUPINDER- does not use Bipap, No recent utilization. Patient lives alone- one floor- basement of home. Family nearby. Able to drive self to appointments. Bottle out medication review- does own medications. Reports doing well. Last evening- was having discomfort in feet in which he thought was gout but has subsided. VS wnl Lungs clear bilaterally No sob noted BLE edema present- painful when palpated. Wounds BLE- followed by wound clinic- had appointment today- dressing intact to LLE- Wrap to RLE- states he has several blisters on leg. Voiding without difficulty Bowels wnl- per report Appetite good Taking fluids well. Discussed [facility] scale- does have internet but the placement of where the scale would be- box would not be nearby d/t no windows. Will hold off on scale. Patient does weigh self. Aware to call [facility] with 2-3lb weight gain in 24/hrsor if becomes more sob or increase edema. Voices understanding. Physical Exam: BP 118/72 (BP Site: Right Arm, BP Position: Sitting, BP Cuff Size: Regular) | Pulse 72 | Temp 36.1 C (96.9 F) (Tympanic) | Resp 18 | SpO2 97% Pain 0 Physical Exam Constitutional: Appearance: Normal appearance. Cardiovascular: Rate and Rhythm: Normal rate and regular rhythm. Pulses: Normal pulses. Pulmonary: Effort: Pulmonary effort [...] and oriented to person, place, and time. Problems/Symptoms: Review of Systems Constitutional: Negative. HENT: Negative. Respiratory: Negative. Cardiovascular: Positive for leg swelling. Gastrointestinal: Negative. Genitourinary: Negative. Musculoskeletal: Positive for gait problem. Skin: Positive for wound. Hematological: Bruises/bleeds easily. Psychiatric/Behavioral: Negative. Medication Reconciliation: (See medication list) Does patient take medications as ordered: Yes Patient Well Being: PHQ2/9: No questionnaires available. Within normal limits Lives alone- first floor of home. [employer]-10 Completed this Visit: Yes. [employer]-10: Reason Completed: Enrollment [employer] [facility] ([facility]) Fall Risk Assessment Tool Age 65+: Yes (03/29/241299) Diagnosis (3 or more co-existing): Yes (03/29/241299) Prior history of falls within 3 months: No (03/29/241299) Incontinence: No (03/29/241299) Visual impairment: Yes (03/29/241299) Impaired functional mobility: No (03/29/241299) Environmental hazards: No (03/29/241299) Poly Pharmacy (4 or more prescriptions - any type): Yes (03/29/241299) Pain affecting level of function: No (03/29/241299) Cognitive impairment: No (03/29/241299) Score - a score of 4 or more is considered at risk for fallin (03/29/241299) [employer]-10 Interventions: Fall education provided, reviewed/provided Fall brochure Advanced Care Planning: Living Will. and Healthcare POA. Patient's Goals of Care: Walk Take care of myself Stay out of a care home Reinforcement/Education: Reviewed HF symptom monitoring: -Weigh self daily in am, post-void and record -Do not add salt to food, avoid foods high in sodium -Limit fluids to 2 liters per day -Report the following: ->2 lb weight gain in one day or 5 lbs in a week to PCP -increased edema in feet, abdomen or hands -increased SOB and cough, especially if at night -increased fatigue or vertigo Educated on home safety: Create a fall proof home Clear floors of clutter, loose wires, throw rugs, and cords. Make sure halls, stairways, and entrances are well lit. Install a nightlight in your bedroom, hallway and bathroom. Install grab bars or handrails in the bathroom and on stairs. Use a non-skid tub/shower mat. Avoid climbing on a chair; instead use a step stool with a high handrail. Keep sidewalks and steps in good repair Keep steps and sidewalks free of snow and ice. Using aids to support and prevent falls If you have poor balance or have fallen in the past, consider additional support such as a cane or walker. Use a cane with good support and that is the proper length for you. Use a walker if a cane doesnt provide enough support. Avoid medications that increase the risk of falling by causing dizziness, change in sensation or slowed reflexes. Certain medicines may cause falls - blood pressure pills, heart medicines, water pills, or sleepingpills. Be sure to understand each medicine that you are taking and any side effects that may occur. Improve your balance and flexibility with muscle strengthening exercises. Ask your health care provider for some exercises that will be right for you. Reinforced medication regimen. Timing., Dosing., and Purspose. Treatment/Plan: Low na diet Elevate ble- edema [facility] Continue medications as prescribed Keep all upcoming MD appointments Fall precautions Fluids encouraged RN CM follow up in 4 weeks Home Interventions Provided: Reinforced current Plan of Care, including self-management and medication regimen Updated Advanced Care Planning Note Patient's 'Red Flags': Increase 2-3 lbs/24 hour or 3-5lb in 5 days Increase shortness of breath Pain in toes/hands- Gout symptoms. Patient Needs to Remember: Call [facility] at with any new or worsening health concerns or problems, red flag symptoms. Referrals Needed: N/a Follow Up: Is there cellular connectivity/connectivity in the home? Yes Does the patient have internet in the home? Yes Patient encouraged to call the intake phone number for all urgent but not emergent issues. Is the patient new to [facility] within the last 30 days? Yes, Is this a Transitions of Care visit? No Provider is in agreement with Plan of Care: Yes Scheduled to follow up with patient in 4 weeks. Kelly Caro RN 03/29/2024 12:35 PM documented in this encounter Miscellaneous Notes * ACP (Advance Care Planning) - Kelly Rosa RN - 03/29/2024 12:46 PM EDT Patient-centered Communication 03/29/2024 The patient/surrogate voluntarily agreed to participate in advance care planning discussion. They were advised that this is a separate service which may incur out of pocket cost in the form of copayment and/or deductibles. Location: Home Individual(s) present for conversation: Patient Decisions Synopsis SmartLink Most Recent Value Past ~10 years 03/29/2024 12:47 Decisions CPR decision: Declines CPR 03/29/2024 Declines CPR Intubation/Mechanical Ventilation decision: Declines Intubation/mechanical ventilation 03/29/2024 Declines Intubation/mechanical ventilation Non-invasive ventilation or BIPAP decision: Patient chooses non-invasive ventilation. Select interventions below 03/29/2024 Patient chooses non-invasive ventilation. Select interventions below Non-Invasive Ventilation Interventions: NIV 03/29/2024 NIV Antibiotic therapy decision: Patient chooses Antibiotic therapy 03/29/2024 Patient chooses Antibiotic therapy Artificial nutrition decision: Declines Artificial nutrition 03/29/2024 Declines Artificial nutrition IV hydration decision: Patient chooses IV hydration 03/29/2024 Patient chooses IV hydration Chemotherapy decision: Undecided about Chemotherapy 03/29/2024 Undecided about Chemotherapy Radiation therapy decision: Undecided about Radiation therapy 03/29/2024 Undecided about Radiation therapy Surgical procedure(s) decision: Undecided about Surgical procedure 03/29/2024 Undecided about Surgical procedure Blood transfusion decision: Patient chooses Blood transfusion 03/29/2024 Patient chooses Blood transfusion Lab draw decision: Patient chooses Lab draws 03/29/2024 Patient chooses Lab draws Dialysis decision: Declines Dialysis 03/29/2024 Declines Dialysis Additional Comments Synopsis SmartLink Most Recent Value Past ~10 years 10/21/2023 12:32 Additional Comments Additional Comments: -patient states he does have ACP and he "bleieves" his daughter , brother and sister are listed as the HC Agents and alternatives. He will pull that document and review with family and if no changes needed he will get us a copy for his chart. 10/21/2023 -patient states he does have ACP and he "bleieves" his daughter , brother and sister are listed as the HC Agents and alternatives. He will pull that document and review with family and if no changes needed he will get us a copy for his chart. Discerning What Matters Most to the Patient: Synopsis E-Box - [email or web address] Most Recent Value Past ~10 years 10/21/2023 12:34 Discerning What Matters Most to the Patient In their own words, patient's UNDERSTANDING of their illness is: "I feel my health is good comparedto others my age, I do have a defibulater and the high tryglycerides. My feet are probably what bothers me most with pain and ulcer and not the greatest with balance. " 10/21/2023 "I feel my health is good compared to others my age, I do have a defibulater and the hightryglycerides. My feet are probably what bothers me most with pain and ulcer and not the greatest with balance. " Their current SYMPTOMS include: Pain 10/21/2023 Pain The patient thinks COMPLICATIONS in the future may be: More pain 10/21/2023 More pain The patient's HOPES are: Maintain current functional abilities 10/21/2023 Maintain current functional abilities The patient defines LIVING WELL as: living independently, I would like to find a girlfriend becauseI hate being lonely. I loved to travel 10/21/2023 living independently, I would like to find a girlfriend because I hate being lonely. I loved to travel The patient considers these as 'UNACCEPTABLE OUTCOMES': "Being a vegetable" (define below);Prolonged care home stay (define below);Prolonged mechanical ventilation (define below) 10/21/2023 "Being a vegetable" (define below);Prolonged care home stay (define below);Prolonged mechanical ventilation (define below) Prolonged care home stay, patient defines as: I do not want anything done to prolong my life 10/21/2023 I do not want anything done to prolong my life Prolonged mechanical ventilation, patient defines as: I do not want anything done to prolong my life 10/21/2023 I do not want anything done to prolong my life The patient's cultural or spiritual BELIEFS that may affect health care decisions: pt states he is a "born again" Atheist 10/21/2023 pt states he is a "born again" Atheist Source: Content from globa.ly Program Aligning Care With What Matters Most: Synopsis SmartLink Most Recent Value Past ~10 years 03/29/2024 12:47 Aligning Care With What Matters Most In their own words, the patient's understanding of their prognosis: "I feel my health is good compared to others my age, I do have a defibulater and the high tryglycerides. My feet are probably what bothers me most with pain and ulcer and not the greatest with balance. " 10/21/2023 Interventions/Choices: CPR;Intubation/mechanical ventilation;IV hydration;Surgical procedure;Non-invasive ventilation or BIPAP;Antibiotic therapy;Blood transfusion;Lab draws;Artificial nutrition;Dialy sis;Chemotherapy;Radiation therapy 03/29/2024 CPR;Intubation/mechanical ventilation;IV hydration;Surgical procedure;Non-invasive ventilation or BIPAP;Antibiotic therapy;Blood transfusion;Lab draws;Artificial nutrition;Dialysis;Chemotherapy;Radiation therapy Rationale for Decisions Source: Content from Respecting Choices Program 20 minutes spent in direct [id number] discussion today, Kelly Caro, JULIA documented in this encounter Plan of Treatment Upcoming Encounters Date Type Department Care Team (Late st Contact Info) Description 04/07/2024 8:15 AM EDT Office Visit [facility] Surgery [facility] [address] [place] [address] Mary Jane Cordova MD [address] [place] [address] 04/17/2024 10:40 AM EDT Office Visit Ophthalmology, [facility] [address] [place] [address] Marshall Paez, DO [address] [place] [address] 04/19/2024 9:00 AM EDT Office Visit Urology, [facility] [address] [facility] [place] [address] Regan Alejandro MD [address] [place] [id number] 04/20/2024 9:00 AM EDT Home Visit [facility], [facility] [address] [place] [address] Jake Gilmore PA-C [address] [place] [address] 04/28/2024 8:30 AM EDT Home Visit [facility], [facility] [address] [facility] [place] [address] Kelly Rosa, JULIA [address] [place] [place] [address] 05/02/2024 2:45 PM EDT Office Visit Urology, [facility] [address] [facility] [place] [address] Regan Alejandro MD [address] [place] [address] 05/12/2024 2:30 PM EDT Office Visit Cardiology, [facility] [address] [place] [address] Luiz Pina PA-C [address] [place] [address] 06/24/2024 9:00 AM EDT Office Visit Family Practice [facility] [address] [place] [address] Sandra Goldstein MD [address] [place] [address] [place] [address] 09/12/2024 10:30 AM EST Office Visit Cardiology [address] [place] [address] Luiz Pina PA-C [address] [place] [address] 10/24/2024 10:30 AM EST Nurse Only Ancillary [address] [place] [address] [place], Nurse Annual [address] [place] [address] Health Maintenance Due Date Last Done Comments COVID-19 Vaccine ( season) 2023 10/01/2022, 06/17/2021, 11/14/2020, Additional history exists Diabetic Foot Exam 04/21/2024 04/21/2023, 1 , 05/28/2020, Additional history exists Influenza Vaccine (FLU shot) (#1) 2024 04/27/2023, 06/27/2022, 06/05/2021, Additional history exists CKD HGB USE SMARTSET 49188 05/29/202405/29, 03/19/2023, 03/19/2023, Additional history exists CKD PHOS USE SMARTSET 27812 05/29/2024 10/0 02/2023, 10/01/2022, 12/04/2020, Additional history [...] this encounter Medical Devices Implanted Type Area Psychological Operations Specialist Device Identifier Shelf Expiration Date Model / Serial / Lot Jenelle Srinivasan 6 [id number] - [id number] Implanted:Qty: 4 on 10/21/2015 by Riki Chan MD at [place] [facility] N/A: Chest JNJ : [employer] 07/22/2020 [id number] / / [id number] Marker Coronary Amgm-Sd - [id number] Implanted:Qty: 1 on 10/21/2015 by Riki Chan MD at OR [facility] N/A: Chest [employer] 08/22/2018 AM-SD / / [id number] Marker Coronary Am-Sd - [id number] Implanted:Qty: 1 on 10/21/2015 by Riki Chan MD at OR [facility] Chest [employer] 06/22/2018 AM-SD / / [id number] documented as of this encounter Visit Diagnoses Diagnosis Advanced care planning/counseling discussion- Primary Other specified counseling documented in this encounter [...] and were consensually agreed upon. Care Teams Office Employee Relationship Specialty Start Date End Date Sandra Goldstein MD [address] [place] [address] [place] [address] PCP - General Family Medicine 02/22/19 documented as of this encounter
--- OUTSIDE RECORDS SUMMARY | 2024-05-13 11:42 | External Medical Summary | Summary of Care ---
Author Name Unknown Organization [facility] Address [address] [place] [address] Phone [phone] Care Team Providers Care Sewing Machine Repairer Name Role Phone Sandra Goldstein MD Primary Care Prov ider Encounter Details Date Type Department Care Team (Late st Contact Info) Description 03/14/2024 Population Health External Data Unspecified Department Allergies Active Allergy Reactions Criticality Noted Date Comments Lisinopril Cough Low 12/21/2012 documented as of this encounter (statuses as of 03/20/2024) Medications Medication Sig Dispensed Refills Start Date [...] hemoglobin A1c goal of less than 8.0% ([facility]),Coronary artery disease involving nikolai coronary artery of nikolai heart without angina pectoris Take 1 Tablet by mouth in the morning. 90 Tablet 3 10/19/2023 Active Additional Information Patient not taking.Reported on 03/16/2024 Clopidogrel Bisulfate 75 MG Oral Tablet (pLAVix)Indications: PAD (peripheral artery disease) ([facility]) Take 1 Tablet by mouth in the morning. 90 Tablet 10/19/2023 Active Additional Information Patient not taking.Reported on 03/16/2024 Apixaban 5 MG Oral Tablet (Eliquis)Indications :Paroxysmal atrial fibrillation ([facility]) Take 1 Tablet by mouth in the morning and 1 Tablet before bedtime. 180 Tablet 10/19/2023 Active Levothyroxine Sodium 112 MCG Oral [...] disease, without long-term current use of insulin ([facility]) TAKE ONE TABLET BY MOUTH EVERY DAY [...] before bedtime. 90 Tablet 10/19/2023 Active Nystatin 824376 UNIT/GM External CreamIndications:Can didal diaper dermatitis Apply [...] Additional Information Patient not taking.Reported on 03/16/2024 Potassium Chloride Valentina ER 10 MEQ Oral Tablet Extended ReleaseIndications:A cute decompensated heart failure (HCC) Take 1 Tablet by mouth every other day. 16 Tablet 5 10/19/2023 Active Amiodarone HCl 200 MG Oral Tablet (Cordarone)Indicatio ns:Paroxysmal atrial fibrillation (HCC) Take 1 Tablet by mouth in the morning. 100 Tablet 3 10/26/2023 Active Furosemide 20 MG Oral Tablet (Lasix)Indications:A cute decompensated heart failure (HCC) Take 1 Tablet by mouth in the morning. 100 Tablet 3 10/26/2023 Active Ciprofloxacin HCl 500 MG Oral Tablet (Cipro) Take 1 Tablet by mouth in the morning and 1 Tablet before bedtime. Start day before biopsy. 6 Tablet 11/08/2023 Active Additional Information Patient not taking.Reported on 03/16/2024 Hospital, Clinic, or Other Facility Administered Medication Ordered Dose Route Frequency Start Date End Date Status Nystatin (Nystop) powderIndications:Tinea cruris TOP BID (.AM/PM) 06/10/2021 Active documented as of this encounter (statuses as of 03/20/2024) Active Problems Problem Noted Date Diagnosed Date [...] as of this encounter (statuses as of 03/20/2024) Resolved Problems Problem Noted Date Diagnosed Date [...] CHF 05/26/2019 05/22/2022 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 button and buckle maker 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 [...] as of this encounter (statuses as of 03/20/2024) Immunizations Name Administration Dates Next Due COVID-19 mRNA, LNP-s, No Pre serve, 2-Dose Series (Hi-G-Tek) 06/17/2021,11/14/2020,10/24/2020 Covid-19, Mrna, Lnp-s, Pf, B ivalent, 30 Mcg, IM, 12 yrs and above (Hi-G-Tek) 10/01/2022 Pneumococcal Conjugate Vacc, 13 Valent (Prevnar) [...] (15 years old or older) No 11/05/19 Cognitive Status Response Date of Assessm ent Because of a physical, menta l, or emotional condition, do you have serious difficulty concentrating, remembering, or making decisions? (5 years old or older) No 11/05/2015 documented as of this encounter Plan of Treatment Upcoming Encounters Date Type Department Care Team (Late st Contact Info) Description 04/07/2024 8:15 AM EDT Office Visit [facility] [address] [place], [place] [address] Mary Jane Cordova MD [address] [facility] [address] 04/11/2024 9:30 AM EDT Office Visit [facility] Eye [facility] [address] [place] [address] Marshall Paez, [address] [place] [address] 04/19/2024 9:00 AM EDT Office Visit Urology, [facility] [address] [place] [address] Regan Alejandro MD [address] [place] [address] 05/02/2024 2:45 PM EDT Office Visit Urology, [facility] [address] [place] [address] Regan Alejandro MD [address] [place] [address] 06/24/2024 9:00 AM EDT Office Visit Family Practice [facility] [address] [place] [address] Sandra Goldstein MD [address] [place] [address] [place] [address] 09/12/2024 10:30 AM EST Office Visit Cardiology [facility] [address] [place] [address] Luiz Pina PA-C [address] [facility] [place] [address] 10/24/2024 10:30 AM EST Nurse Only Ancillary [address] [place] [address] [place], Nurse Annual [address] [place] [address] Health Maintenance Due Date Last Done Comments COVID-19 Vaccine (2022- season) 2023 10/01/2022, 06/17/2021, 11/14/2020, Additional history exists Diabetic Foot Exam 04/21/2024 04/21/2023, 1 , 05/28/2020, Additional history exists Influenza Vaccine (FLU shot) (#1) 2024 04/27/2023, 06/27/2022, 06/05/2021, Additional history exists CKD HGB USE SMARTSET 74249 05/29/202405/29, 03/19/2023, 03/19/2023, Additional history exists CKD PHOS USE SMARTSET 61907 05/29/202402/2023, 10/01/2022, 12/04/2020, Additional history exists GFR 09/07/2024 03/07/2024, 10/21, 05/29/2023, Additional history exists HbA1c 09/07/2024 03/07/2024, 10/21, 05/29/2023, Additional history exists Depression Screening 10/20/2024 10/21/2023 B-12 11/07/2024 11/08/2023, [...] this encounter Medical Devices Implanted Type Area Curb Machine Operator Device Identifier Shelf Expiration Date Model / Serial / Lot Sut Steel 6 M654g - [id number] Implanted:Qty: 4 on 10/21/2015 by Riki Chan MD at [place] [facility] [place] N/A: Chest JNJ : [employer] 07/22/2020 M654G / / [id number] Marker Coronary Amgm-Sd - [id number] Implanted:Qty: 1 on 10/21/2015 by Riki Chan MD at OR [facility] N/A: Chest [employer] 08/22/2018 AMGM-SD / / [id number] Marker Coronary Amgm-Sd - [id number] Implanted:Qty: 1 on 10/21/2015 by Riki Chan MD at OR [facility] Chest [employer] 06/22/2018 AMGM-SD / / [id number] documented as of this encounter Advance Directives [...] and were consensually agreed upon. Care Teams Sewing Machine Repairer Relationship Specialty Start Date End Date Sandra Goldstein MD [address] [place] [address] [place] [phone] PCP - General Family Medicine 02/22/19 documented as of this encounter
--- OUTSIDE RECORDS SUMMARY | 2024-05-13 11:42 | External Medical Summary | Summary of Care ---
Author Name Unknown Organization [facility] Address [address] [place] [address] Phone [phone] Care Team Providers Care Director Channel Name Role Phone Sandra Goldstein MD Primary Care Prov ider Encounter Details Date Type Department Care Team (Latest Contact Info) Description 03/15/2024 Medication Management 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 90 Tablet 3 10/19/2023 Active Additional Information Patient not taking.Reported on 03/16/2024 Clopidogrel Bisulfate 75 MG Oral Tablet (pLAVix)Indications: PAD (peripheral artery disease) ([facility]) Take 1 Tablet by mouth in the morning. 90 Tablet 3 10/19/2023 Active Additional Information Patient not taking.Reported on 03/16/2024 Apixaban 5 MG Oral Tablet (Eliquis)Indications :Paroxysmal atrial fibrillation ([facility]) Take 1 Tablet by mouth in the morning and 1 Tablet before bedtime. 180 Tablet 3 10/19/2023 Active Levothyroxine Sodium 112 [...] disease, without long-term current use of insulin ([facility]) TAKE ONE TABLET BY MOUTH EVERY DAY with breakfast 90 Tablet 10/19/2023 Active Additional Information Patient not taking.Reported on 03/16/2024 Tamsulosin HCl 0.4 MG Oral Capsule (Flomax)Indications: BPH without obstruction/lower urinary tract symptoms Take one capsule daily 90 Capsule 10/19/2023 Active Losartan Potassium 50 MG Oral Tablet (Cozaar)Indications: HTN, goal below 150/90 Take 1/2 Tablets by mouth in the morning and before bedtime. 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 [...] as of this encounter (statuses as of 03/23/2024) Immunizations Name Administration Dates Next Due COVID-19 mRNA, LNP-s, No Pre serve, 2-Dose Series ([employer]) 06/17/2021,11/14/2020,10/24/2020 Covid-19, Mrna, Lnp-s, Pf, B ivalent, [...] as of this encounter Progress Notes * Valeria Anglin, exterior designer - 03/16/2024 3:04 PM EDT Tarun Garcia is a 83 [...] Reported on 03/16/2024) 180 Tablet 3 Nystatin [id number] UNIT/GM External Cream Apply topically to affected [...] COVID-19 mRNA, LNP-s, No Preserve, 2-Dose Series ([employer]) 10/24/2020, 11/14/2020, 06/17/2021 Covid-19, Mrna, Lnp-s, Pf, [...] beneficiary Language Template for the Patient Takeaway: [place] I attest that I have reviewed and [...] 2 tablets in the morning. General Health Sandra Jenkins MD * [facility] To-Do-List - Valeria Anglin exterior designer - 03/16/2024 2:40 PM EDT Images from [...] we talked about: What I should do: [employer] Mail Order You can get a 90 day supply of your prescription medications delivered to your home. You also can be signed up for automatic refills. Typically, patients who switch to mail order save money on their monthly prescriptions. You will have access to a pharmacist to answer any questions about your medications (Wednesday- Wednesday, 6:30 am to 7 pm). Call [phone] to enroll in mail order services today. documented in this encounter Plan of Treatment Upcoming Encounters Date Type Department Care Team (Late st Contact Info) Description 04/07/2024 8:15 AM EDT Office Visit [facility] Surgery [facility] [address] [place] [address] Mary Jane Cordova MD [address] [place] [address] 04/11/2024 9:30 AM EDT Office Visit [facility] [place] [address] [place] Paez, [place] [facility] [address] 04/19/2024 9:00 AM EDT Office Visit Urology, [facility] [address] [facility] [place] [address] Regan Alejandro MD [address] [place] [address] 05/02/2024 2:45 PM EDT Office Visit Urology, [facility] [address] [place] [address] Regan Alejandro MD [address] [place] [address] 06/24/2024 9:00 AM EDT Office Visit Family Practice [facility] [address] [facility] [place] [address] Sandra Goldstein MD [address] [place] [address] [place] [address] 09/12/2024 10:30 AM EST Office Visit Cardiology [address] [place] [address] Luiz Pina PA-C [address] [facility] [place] [address] 10/24/2024 10:30 AM EST Nurse Only Ancillary [address] [place] [address] [place], Nurse Annual Wellness [address] [place] [address] [place] [address] Health Maintenance Due Date Last Done Comments COVID-19 Vaccine ( season) 2023 10/01/2022, 06/17/2021, 11/14/2020, Additional history exists Diabetic Foot Exam 04/21/2024 04/21/2023, 1 , 05/28/2020, Additional history exists Influenza Vaccine (FLU shot) (#1) 2024 04/27/2023, 06/27/2022, 06/05/2021, Additional history exists CKD HGB USE SMARTSET 81658 05/29/202405/29, 03/19/2023, 03/19/2023, Additional history exists CKD PHOS USE SMARTSET 27878 05/29/2024 100 02/2023, 10/01/2022, 12/04/2020, Additional history [...] Completed 08/13/2015, 07/07/2012 Zoster Vaccines Completed 12/02/2021, 120 09/2020, 06/06/2020, Additional history exists DXA Scan [...] this encounter Medical Devices Implanted Type Area Liability Analyst Device Identifier Shelf Expiration Date Model / Serial / Lot Jenelle Srinivasan 6 M654g - [id number] Implanted:Qty: 4 on 10/21/2015 [place] R[place] [facility] [place]: Chest JNJ : [employer] 07/22/2020 M654G / / [id number] Marker Coronary Am-Sd - [id number] Implanted:Qty: 1 on 10/21/2015 by Riki Chan [place] [facility]A: Chest [employer] 08/22/2018 AM-SD / / [id number] Marker Coronary Am-Sd - [id number] Implanted:Qty: 1 on 10/21/2015 by Riki Chan MD [place] [facility] Chest [employer] 06/22/2018 AM-SD / / [id number] documented as of this encounter Visit Diagnoses Diagnosis Medication management- Primary Encounter for long-term (current) use of [...] were consensually agreed upon. Care Teams Director Channel Relationship Specialty Start Date End Date Sandra Goldstein MD [address] [place] [address] [place] [phone] PCP - General Family Medicine 02/22/19 documented as of this encounter
--- OUTSIDE RECORDS SUMMARY | 2024-05-13 11:42 | External Medical Summary | Summary of Care ---
Author Name Unknown Organization [facility] Address [address] [place] [address] Phone [phone] Care Team Providers Care Glassware Verifier Name Role Phone Sandra Goldstein MD Primary Care Prov ider Reason for Visit * Reason Comments Follow Up PAD Encounter Details Date Type Department Care Team (Late st Contact Info) Description 03/08/2024 2:50 PM EDT Office Visit Vascular Surgery, [facility] [address] [facility] [place] [id number] Shaun Herr MD [address] [place] [address] PAD (peripheral artery disease) ([facility])*; Stage 3b chronic kidney disease (HCC); Generalized edema; Blister due to acute edema Allergies Active Allergy Reactions Criticality Noted Date Comments Lisinopril Cough Low 12/21/2012 documented as of this encounter (statuses as of 03/08/2024) Medications Medication Sig Dispensed Refills Start Date [...] hemoglobin A1c goal of less than 8.0% ([facility]),Coronary artery disease involving [place] coronary artery of [place] heart without angina pectoris Take 1 Tablet by mouth in the morning. 90 Tablet 3 10/19/2023 Active Clopidogrel Bisulfate 75 MG Oral Tablet (pLAVix)Indications: PAD (peripheral artery disease) ([facility]) Take 1 Tablet by mouth in the morning. 90 Tablet 3 10/19/2023 Active Apixaban 5 MG Oral Tablet (Eliquis)Indications :Paroxysmal atrial fibrillation ([facility]) Take 1 Tablet by mouth [...] disease, without long-term current use of insulin ([facility]) TAKE ONE TABLET BY MOUTH EVERY DAY with breakfast 90 Tablet 3 10/19/2023 Active Tamsulosin HCl 0.4 MG Oral Capsule (Flomax)Indications: BPH without obstruction/lower urinary tract symptoms Take one capsule daily 90 Capsule 3 10/19/2023 Active Losartan Potassium 50 MG Oral Tablet (Cozaar)Indications: HTN, goal below 150/90 Take 1/2 Tablets by mouth in the morning and before bedtime. 90 Tablet 3 10/19/2023 Active Nystatin 302856 UNIT/GM External CreamIndications:Can didal diaper dermatitis Apply [...] a day. 180 Tablet 3 10/19/2023 Active Potassium Chloride Valentina ER 10 MEQ [...] day before biopsy. 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 [...] as of this encounter (statuses as of 03/08/2024) Immunizations Name Administration Dates Next Due COVID-19 mRNA, LNP-s, No Pre serve, 2-Dose Series (MetaJure) 06/17/2021,11/14/2020,10/24/2020 Covid-19, Mrna, Lnp-s, Pf, B ivalent, [...] Date Smoking Tobacco: Never Smokeless Tobacco: Never Tobacco Cessation:Counseling Given: Not Answered Alcohol Use Standard Drinks/Week Comments No 0 [...] Sign Reading Time Taken Comments Blood Pressure 104/58 03/08/2024 2:32 PM EDT Pulse 100 03/08/2024 2:32 PM EDT Temperature 36.5 C (97.7 F) 03/08/2024 2:32 PM ED T Respiratory Rate - - Oxygen Saturation - - Inhaled Oxygen Concentration - - Weight 95.4 kg (210 lb 6.4 oz) 03/08/2024 2:32 P M EDT Height - - Body Mass Index 31.99 10/21/2023 10:30 AM EST documented in this encounter Functional Status Functional [...] as of this encounter Progress Notes * Regis Gaspar PA-C - 03/08/2024 2:50 PM EDT Images from the original note were not included. Date of Service: 03/08/2024 3:02 PM Earl Garcia is a 83 year old male. Patient being seen in consultation at the request of Sandra Judge MD Chief Complaint: Return pt, seen as new pt 12/22/23, scheduled to RTC 1 yr Seen by PCP 12/22/23, c/o right calf claudication last 1-2 months and has new wounds RLE, calf/[place] Upon questioning patient today, he has had blisters that recurred, last week. A large posterior calf blister broke upon. Patient been applying DSD, covering with tubi-surveyor instrument assistant Patient denies vascular claudication or rest pain Patient admits to chronic neuropathy, BLE Patient has scheduled appointment with his wound care provider in [place], for next Wed HPI: Never smoker with BHUPINDER, Dyslipidemia, Gout, DM, UE DVT, HTN, CAD (s/p CABG 2015, Dr. Chan), HFrEF (LVEF 30-35%), Parox AFib, CKD III, sustained VT (s/p ICD insertion), Moderate Aortic & Mitral Valve Regurg, S/P B/L shoulder replacements and PVD who has been followed by Dr. Laoby [facility]. A 11/21/21 RLE angio had the following findings: Right lower extremity with mild diffuse SFA/popliteal disease, 100% ostial PEDRO occlusion, 100% distal TPT occlusion, distal PEDRO reconstitutes at level of ankle without significant disease. Small LABORATORY WORKER reconstitutes at ankle. DPA is widely patent to forefoot. Unsuccessful antegrade and retrograde attempts made at right tibial intervention Per PCP referral note of 10/19/23, patient has had open wounds of both feet, but nothing current No claudication or rest pain Some chronic right foot pain, that gets better with walking Current Outpatient Medications Medication Sig Dispense Refill Vitamin D3 25 MCG (1000 UT) Oral Tablet (Vitamin D3) Take by mouth 2 Tablets in the morning. 180 Tablet 1 Nitroglycerin 0.4 MG Sublingual Tablet Sublingual (Nitrostat) place 1 tablet under the tongue every5 minutes as needed for pain, chest. up to 3 doses in 15 minutes 25 Tablet 0 Vitamin C 500 MG Oral Tablet Chewable Take 1 Tablet by mouth in the morning. Multi-Vitamins Oral Tablet Take 1 Tablet by mouth in the morning. Atorvastatin Calcium 40 MG Oral Tablet (Lipitor) Take 1 Tablet by mouth in the morning. 90 Tablet 3 Clopidogrel Bisulfate 75 MG Oral Tablet (pLAVix) Take 1 Tablet by mouth in the morning. 90 Tablet 3 Apixaban 5 MG Oral Tablet (Eliquis) Take 1 Tablet by mouth in the morning and 1 Tablet before bedtime. 180 Tablet 3 Levothyroxine Sodium 112 MCG Oral Tablet (Levoxyl) Take 1 Tablet by mouth daily first thing in the morning. (at least 30 min prior to breakfast or other meds) 90 Tablet 1 metFORMIN HCl 1000 MG Oral Tablet (Glucophage) TAKE ONE TABLET BY MOUTH EVERY DAY with breakfast 90Tablet 3 Tamsulosin HCl 0.4 MG Oral Capsule (Flomax) Take one capsule daily 90 Capsule 3 Losartan Potassium 50 MG Oral Tablet (Cozaar) Take 1/2 Tablets by mouth in the morning and before bedtime. 90 Tablet 3 Metoprolol Succinate ER 50 MG Oral Tablet Extended Release 24 Hour (toPROL XL) Take 1 Tablet by mouth 2 times a day. 180 Tablet 3 Potassium Chloride Valentina ER 10 MEQ Oral Tablet Extended Release Take 1 Tablet by mouth every other day. 16 Tablet 5 Amiodarone HCl 200 MG Oral Tablet (Cordarone) Take 1 Tablet by mouth in the morning. 100 Tablet 3 Furosemide 20 MG Oral Tablet (Lasix) Take 1 Tablet by mouth in the morning. 100 Tablet 3 Ciprofloxacin HCl 500 MG Oral Tablet (Cipro) Take 1 Tablet by mouth in the morning and 1 Tablet before bedtime. Start day before biopsy. 6 Tablet 0 oxygen GAS 1LPM bled through bipap (Patient not taking: Reported on 04/21/2023) 1 Each 0 BiPAP every night at bedtime . (Patient not taking: Reported on 04/21/2023) Clotrimazole 1 % External Cream (Lotrimin) Apply topically to affected area 2 times a day . (Patient not taking: Reported on 10/19/2023) 60 g 2 Nystatin [id number] UNIT/GM External Cream Apply topically to affected area 2 times a day. To affacted area for two weeks. (Patient not taking: Reported on 12/22/2023) 30 g 5 Current Facility-Administered Medications Medication Dose Route Frequency Provider Last Rate Last Admin Nystatin (Nystop) powder Topical BID(AM/PM) Sandra Goldstein MD Review of patient's allergies indicates: Allergen Reactions Lisinopril Cough Patient Active Problem List Diagnosis History of myocardial infarction Type 2 diabetes mellitus with hemoglobin A1c goal of less than 8.0% (HCC) Dyslipidemia, goal LDL below 70 HTN, goal below 150/90 Gout Coronary artery disease Vitamin D deficiency BHUPINDER (obstructive sleep apnea) S/P CABG x 3 Dysarthria History of cardioembolic cerebrovascular accident (CVA) Paroxysmal atrial fibrillation (HCC) AK (actinic keratosis) Vertebral artery stenosis, left History of colon polyps Ventricular tachycardia ([facility]) AICD (automatic cardioverter/defibrillator) present CSA (central sleep apnea) Ischemic cardiomyopathy Atrial septal aneurysm Nocturnal hypoxemia Hypothyroidism, unspecified Urinary urgency Dermatitis Type 2 diabetes mellitus with diabetic neuropathy, unspecified (HCC) Chronic kidney disease, stage 3b (HCC) Hypertensive heart disease with systolic heart failure and stage 3b chronic kidney disease (HCC) Systolic congestive heart failure (HCC) Type 2 diabetes mellitus with diabetic peripheral angiopathy without gangrene (HCC) PAD (peripheral artery disease) (HCC) Scrotal swelling Tinea cruris Type 2 diabetes mellitus with stage 3b chronic kidney disease, without long-term current use of insulin (HCC) Yeast dermatitis Hypothyroidism due to acquired atrophy of thyroid Elevated PSA Past Medical History: Diagnosis Date Arm DVT (deep venous thromboembolism), acute, left (HCC) 11/30/2017 Calculus of kidney x3 Certain sequelae of myocardial infarction 1996 Chronic ischemic heart disease Colon polyp Colon polyp Coronary artery disease DM type 2, goal A1c below 7 Gout Gouty arthropathy 08/21/01 PAH- seen in er treated with indocin sr 75mg Hypertension goal BP (blood pressure) < 140/90 Mixed dyslipidemia Sleep apnea Sleep apnea, obstructive Swelling of lower extremity 11/12/2015 Vitamin D deficiency Past Surgical History: Procedure Laterality Date ARTHROPLASTY KNEE TOTAL 2004 Right--[place] CABG, ARTERIAL, SINGLE N/A 10/21/2015 CORONARY ARTERY BYPASS GRAFT USING ARTERY 1 GRAFT performed by Riki Chan MD at OR [facility] CABG, ARTERY-VEIN, TWO 10/21/2015 CORONARY ARTERY BYPASS GRAFT ARTERIAL AND VENOUS 2 GRAFTS performed by Riki Chan MD at OR [facility] COLONOSCOPY 11/18/2012 tubulovillous adenoma x 2--repeat 3 yrs; Dr. Brittaney OGDEN,VIDEO ASSIST HARVEST PENELOPE 10/21/2015 ENDOSCOPY VIDEO ASSISTED HARVEST VEIN performed by Riki Chan MD at OR [facility] [place] REPAIR ENTROPION: EXTENSIVE(EG,TARSAL STRIP OR CAPSULOPALPEBRAL FASCIA REPAIRS OPERATION) Left 10/20/2023 Dr. Paez-Lateral tarsal strip LLL RECONSTRUCT/REPLACE SHOULDER JOINT 2009 Right--[facility] RECONSTRUCT/REPLACE SHOULDER JOINT Left 11/2016 Dr. Chatterjee REMOVAL OF KIDNEY STONE, UP TO 2CM X 2, Lithotripsy REPAIR INITIAL INGUINAL HERNIA REDUCIBLE AGE 5 OR MORE 1952 VASC DUPLEX VENOUS UE UNILAT Left 01/07/2017 no DVT Family History Problem Relation Name Age of Onset Diabetes Mother Lived to be 94 Heart Disorder Mother CHF Alcohol and Other Disorders Associated Father MVA at 58-59 Heart Disorder Brother [place] Gastro-intestinal disorder Sister Crohn's Heart Disorder Son in [facility] at 47, [place] Gastro-intestinal disorder Daughter Crohn's Social History Socioeconomic History Marital status: Single Spouse name: Not on file Number of children: Not on file Years of education: Not on file Highest education level: Not on file Occupational History Not on file Tobacco Use Smoking status: Never Smokeless tobacco: Never Vaping Use Vaping status: Never Used Substance and Sexual Activity Alcohol use: No Drug use: No Sexual activity: Not Currently Other Topics Concern Not on file 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 (Adult - for ages 18 years and over): No Does your family have trouble paying for medicine? (Household - for ages 0-17 years): Not on file Food Insecurity: No Food Insecurity (10/01/2023) Food Insecurity Do you need food for this week? (Adult - for ages 18 years and over): No Are you able to get enough food for your family? (Household - for ages 0-17 years): Not on file Does your family need food this week? (Household - for ages 0-17 years): Not on file Do you always have enough food for your family? (Household - for ages 0-17 years): Not on file Transportation Needs: No Transportation Needs (10/01/2023) Transportation Needs Do you have trouble getting a ride to medical visits or work? (Adult - for ages 18 years and over):Never True Does your family have a hard time getting a ride to doctors visits? (Household - for ages 0-17 years): Not on file Has lack of transportation kept you from medical appointments, meetings, work, or from getting things needed for daily living? Check all that apply. (Adult - for ages 18 years and over): Not on file Do you (or your family) have trouble finding or paying for a ride (transportation)? (Household - for ages 0-17 years): Not on file Social Connections: Socially Integrated (10/01/2023) Social Connections How often do you feel lonely or isolated from those around you? (Adult - for ages 18 years and over): Never Housing Stability: Low Risk (10/01/2023) Housing Stability Do you currently live in a custodial or have no steady place to sleep at night? (Adult - for ages 18 years and over): No Do you think you are at risk of becoming homeless? (Adult - for ages 18 years and over): No Does your family worry about paying for your home or becoming homeless? (Household - for ages 0-17 years): Not on file Are you homeless or worried that you might be in the future? (Adult - for ages 18 years and over): Not on file Are you (or your family) homeless or worried that you might be in the future? (Household - for ages0-17 years): Not on file COMPLETE REVIEW OF SYSTEMS: Cardiovascular: Negative for chest pain, shortness of breath, palpitations, angina or PA Neurological: Negative for stroke, TIA, amaurosis fugax All other systems negative except for those noted above and in the history of present illness (HPI). GENERAL MULTI-SYSTEM PHYSICAL EXAM: VITAL SIGNS: BP 104/58 | Pulse 100 | Temp 36.5 C (97.7 F) | Wt 95.4 kg (210 lb 6.4 oz) | BMI 31.99 kg/m | BSA 2.14 m GENERAL MULTI-SYSTEM PHYSICAL EXAM:GENERAL: Normal grooming habits, no acute distress, and appears stated age. NECK: No masses and Normal Thyroid. RESPIRATORY: respiratory effort normal and breath sounds normal. CARDIOVASCULAR: Soft systolic murmur left sternal boarder, no varicosities, and edema present BLE. GASTROINTESTINAL: no tenderness, protuberant, and abdominal aorta not palpable. LYMPHATIC: cervical lymph nodes normal and inguinial lymph nodes normal. SKIN: no rash, no induration, capillary refill normal, no dependent rubor. Yes to BLE venous stasischanges with hemosiderin deposition and dry/flaky skin, large broken blister posterior calf and anterior tibial region, intact blister anterior tibial region, see updated PHOTOs PSYCHIATRIC: orientation to time, place and person normal and recent and remote memory normal. EYES: conjunctivae normal, eye lids normal, pupils normal, and irises normal. NEUROLOGIC: Cranial nerves intact, Motor function intact, and Sensory exam intact RLE 03/08/2024, right posterior calf, broken blister RLE 03/08/2024 anterior tibial, broken blister, intact blister Right great toe 03/08/2024 prior blood blister, resolved BLE legs/feet 12/22/2023 Right medial great toe blood blister 12/22/2023 PULSE SCALE: Carotid Right:----Bruit: No Left:----Bruit: No Radial Right: 3 Left: 3 Femoral Right: 2 Left: 2 Popliteal Right: 0 Left: 3 Dorsalis Pedis Right: 0, doppler signal intact Left: 0, doppler signal intact Posterior Tibial Right: 0, doppler signal intact Left: 0, strong doppler signal intact PULSE SCALE: 4=Aneurysmal; 3=Normal; 2=Diminished; 1=Barely Palpable; 0=Absent DIAGNOSTIC STUDIES: 11/08/23 ENRIQUE: 0.95/1.04 02/24/19 CT neck: B/L nonobstructive calcified plaque of carotid bifurcations LABS: Lab Results Component Value Date/Time CREATININE - [facility] 1.6 (H) 03/07/2024 12:34 PM CREATININE - [facility] 1.7 (H) 11/08/2023 11:35 AM CREATININE - [facility] 1.5 (H) 03/19/2023 11:58 AM CREATININE - [facility] 1.4 (H) 10/05/2019 10:35 AM CREATININE - [facility] 1.4 (H) 04/28/2019 10:49 AM CREATININE - [facility] 1.5 (H) 02/22/2019 01:46 PM CREATININE, RANDOM URINE - [facility] 118 11/09/2023 09:19 AM CREATININE, RANDOM URINE - [facility] 120 10/08/2022 10:04 AM CREATININE, RANDOM URINE - [facility] 74 10/27/2019 09:03 AM CREATININE, RANDOM URINE - [facility] 77 11/30/2017 09:38 AM CREATININE, RANDOM URINE - [facility] 98 04/14/2016 08:59 AM CREATININE-OUTSIDE LAB 1.42 (A) 05/29/2023 12:00 AM CREATININE-OUTSIDE LAB 1.4 (A) 05/27/2019 12:00 AM CREATININE-OUTSIDE LAB 1.3 05/28/2018 12:00 AM Lab Results Component Value Date/Time LDL (CALCULATED)-OUTSIDE LAB 70.80 05/29/2023 12:00 AM LDL CHOLESTEROL (CALCULATED) - [facility] 83 06/04/2017 09:18 AM LDL CHOLESTEROL (DIRECT MEASURE) - [facility] 67 10/01/2022 10:33 AM LDL CHOLESTEROL (DIRECT MEASURE) - [facility] NOT APPLICABLE 06/04/2017 09:18 AM LDL CHOLESTEROL (DIRECT MEASURE) - [facility] 63 07/07/2012 09:30 AM Lab Results Component Value Date/Time HEMOGLOBIN A1C - [facility] 5.5 03/07/2024 12:34 PM HEMOGLOBIN A1C - [facility] 7.6 (H) 11/28/2019 09:50 AM The above clinical labs were reviewed by me on 03/07/2024 IMPRESSIONS: Mild RLE PAD w/out vascular claudication or rest pain Dr. Laboy, on 11/21/21, did a RLE angio which had the following findings: Right lower extremity with mild diffuse SFA/popliteal disease, 100% ostial PEDRO occlusion, 100% distal TPT occlusion, distal PEDRO reconstitutes at level of ankle without significant disease. Small LABORATORY WORKER reconstitutes at ankle. DPA is widely patent to forefoot. Unsuccessful antegrade and retrograde attempts made at right tibial intervention BLE venous insuff w/ chronic stasis and recurrent blistering. Recommend that pt F/U with Wound Carespecialist, which is scheduled for next Wed. Patient will likely need UnnaBoot or other more intensive form of compression of RLE. In meantime, daily wound care with DSD and Tubi-surveyor instrument assistant compresssion Never smoker BHUPINDER Dyslipidemia Gout DM UE DVT, following shoulder surgery HTN CAD (s/p CABG 2015, Dr. Chan) HFrEF (LVEF 30-35%) Parox AFib CKD IIIb Sustained VR (s/p ICD insertion) Moderate Aortic & Mitral Valve Regurg S/P B/L shoulder replacements PLAN: The patient was counseled regarding the pathophysiology and natural history of peripheral vascular disease, as well as the interventional and noninterventional therapeutic options. No indication for further vascular intervention or work up The patient was counseled regarding the pathophysiology and the natural history of venous insufficiency, as well as the noninterventional treatment options including 20 - 30 mm knee high compression stockings, leg elevation, and a regular walking program. Continue Plavix 75 mg for CAD, graft patency On Eliquis for H/O parox AFib, UE DVT Continue Lipitor 40 mg for dyslipidemia/hyperlipidemia & pleiotropic benefits of statins RTC 1 yr with ENRIQUE, as previously scheduled Recommend that pt F/U with senior accounts payable specialist, which is scheduled for next Wed. Patient will likely need UnnaBoot or other more intensive form of compression of RLE. In meantime, daily wound care with DSD and Tubi-surveyor instrument assistant compresssion The patient was seen and examined with MD Regis Donahue PA-C Section of Vascular [place] [address] [phone] I have reviewed the advanced practitioner's documentation on the date of service referenced in note, and I agree with, and take responsibility for the plan of care. 83 year old male returns sooner than expected with venous blisters right calf Has significant bilateral pitting edema Has ruptured blisters on his right calf Needs diuresis and compression - will place in TubiGrips today, has follow up with wound care next week and would expect him to be placed in more aggressive compression then Continue to elevate as able Adequate perfusion for compression wraps Follow up here as scheduled, sooner for failure of wound care/compression Shaun Herr MD Section of Vascular [place] [address] [phone] documented in this encounter Nursing Notes * Neda Qureshi LPN - 03/08/2024 2:34 PM EDT Chief Complaint Patient presents with Follow Up PAD Patient is having some discomfort in right leg had a large blister that broke and has a hard time walking documented in this encounter Plan of Treatment Upcoming Encounters Date Type Department Care Team (Late st Contact Info) Description 04/07/2024 8:15 AM EDT Office Visit [facility] [address] [place] [address] Mary Jane Cordova MD [address] [place] [address] 04/11/2024 9:30 AM EDT Office Visit [facility] [address] [place] [address] Marshall Paez, [address] [place] [address] 04/19/2024 9:00 AM EDT Office Visit Urology, [facility] [address] [facility] [place] [address] Regan Alejandro MD [address] [place] [id number] 05/02/2024 2:45 PM EDT Office Visit Urology, [facility] [address] [facility] [place] [address] Regan Alejandro MD [address] [place] [id number] 06/24/2024 9:00 AM EDT Office Visit Family Practice [facility] [address] [facility] [place] [address] Sandra Goldstein MD [address] [place] [address] [place] [id number] 09/12/2024 10:30 AM EST Office Visit Cardiology [address] [place] [address] Luiz Pina PA-C [address] [place] [address] 10/24/2024 10:30 AM EST Nurse Only Ancillary [address] [place] [address] [place], Nurse Annual [address] [place] [address] Health Maintenance Due Date Last Done Comments COVID-19 Vaccine ( season) 2023 10/01/2022, 06/17/2021, 11/14/2020, Additional history exists Diabetic Foot Exam 04/21/2024 04/21/2023, 1 , 05/28/2020, Additional history exists Influenza Vaccine (FLU shot) (#1) 2024 04/27/2023, 06/27/2022, 06/05/2021, Additional history exists CKD HGB USE SMARTSET 72745 05/29/202405/29, 03/19/2023, 03/19/2023, Additional history exists CKD PHOS USE SMARTSET 80070 05/29/202402/2023, 10/01/2022, 12/04/2020, Additional history exists GFR [...] this encounter Medical Devices Implanted Type Area Stretcher Leveler Operator Device Identifier Shelf Expiration Date Model / Serial / Lot Sut Steel 6 [id number] - [id number] Implanted:Qty: 4 on 10/21/2015 by Riki Chan MD at OR [facility] N/A: Chest JNJ : [employer] 07/22/2020 [id number] / / [id number] Marker Coronary Amgm-Sd - [id number] Implanted:Qty: 1 on 10/21/2015 by Riki Chan MD at OR [facility] N/A: Chest [employer] 08/22/2018 AMGM-SD / / [id number] Marker Coronary Amgm-Sd - [id number] Implanted:Qty: 1 on 10/21/2015 by Riki Chan MD at OR [facility] Chest [employer] 06/22/2018 AMGM-SD / / [id number] documented as of this encounter Visit Diagnoses Diagnosis PAD (peripheral artery disease) (HCC)- Primary Peripheral vascular disease, unspecified Stage 3b chronic kidney disease (HCC) Generalized edema Edema Blister due to acute edema documented in this encounter Advance Directives * [...] and were consensually agreed upon. Care Teams Glassware Verifier Relationship Specialty Start Date End Date Sandra Goldstein MD [address] [place] [address] [place] [phone] PCP - General Family Medicine 02/22/19 documented as of this encounter"
--- OUTSIDE RECORDS SUMMARY | 2024-05-13 11:42 | External Medical Summary | Summary of Care ---
Author Name Unknown Organization [facility] Address [address] [facility] [address] Phone [phone] Care Team Providers Care Flat Sorter Processor Name Role Phone Sandra Goldstein MD Primary Care Prov ider Reason for Visit * Reason Comments Outpatient Testing Encounter Details Date Type Department Care Team (Late st Contact Info) Description 03/07/2024 12:40 PM EDT Laboratory Laboratory [address] [place] [address] [place], Lab [address] [place] [address] Hypothyroidism due to acquired atrophy of thyroid; Elevated prostate specific antigen (PSA); Type 2 diabetes mellitus with stage 3b chronic kidney disease, without long-term current use of insulin ([facility]); Systolic congestive heart failure, unspecified HF chronicity ([facility]) Allergies Active Allergy Reactions Criticality Noted Date Comments Lisinopril Cough Low 12/21/2012 documented as of this encounter (statuses as of 03/07/2024) Medications Medication Sig Dispensed Refills Start Date [...] hemoglobin A1c goal of less than 8.0% ([facility]),Coronary artery disease involving [place] coronary artery of [place] heart without angina pectoris Take 1 Tablet by mouth in the morning. 90 Tablet 3 10/19/2023 Active Clopidogrel Bisulfate 75 MG Oral Tablet (pLAVix)Indications: PAD (peripheral artery disease) ([facility]) Take 1 Tablet by mouth in the morning. 90 Tablet 3 10/19/2023 Active Apixaban 5 MG Oral Tablet (Eliquis)Indications :Paroxysmal atrial fibrillation ([facility]) Take 1 Tablet by mouth in the [...] disease, without long-term current use of insulin ([facility]) TAKE ONE TABLET BY MOUTH EVERY DAY [...] bedtime. 90 Tablet 3 10/19/2023 Active Nystatin 231498 UNIT/GM External CreamIndications:Can didal diaper dermatitis Apply [...] as of this encounter (statuses as of 03/07/2024) Active Problems Problem Noted Date Diagnosed Date [...] as of this encounter (statuses as of 03/07/2024) Resolved Problems Problem Noted Date Diagnosed Date [...] CHF 05/26/2019 05/22/2022 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 malt roaster 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 [...] as of this encounter (statuses as of 03/07/2024) Immunizations Name Administration Dates Next Due COVID-19 mRNA, LNP-s, No Pre serve, 2-Dose Series ([employer]) 06/17/2021,11/14/2020,10/24/2020 Covid-19, Mrna, Lnp-s, Pf, B ivalent, [...] money to get more. Never true 10/01/2023 Sex and Gender Information Value Date [...] 2:50 PM EDT Office Visit Vascular Surgery, [facility] [address] [facility] [place] [address] Shaun Herr MD [address] [place] [address] 04/07/2024 8:15 AM EDT Office Visit [facility] Surgery [facility] [address] [place] [address] Mary Jane Cordova MD 200 [place] [address] 04/11/2024 9:30 AM EDT Office Visit [facility] 16 [place] [address] Marshall Paez, 16 [place] [address] 04/19/2024 9:00 AM EDT Office Visit Urology, [facility] [address] [facility] [place] [address] Regan Alejandro MD [address] [place] [address] 05/02/2024 2:45 PM EDT Office Visit Urology, [facility] [address] [place] [address] Regan Alejandro MD [address] [place] [address] 06/24/2024 9:00 AM EDT Office Visit Family Practice [facility] [address] [place] [address] Sandra Goldstein MD [address] [place] [address] [place] [address] 09/12/2024 10:30 AM EST Office Visit Cardiology [address] [place] [address] Luiz Pina PA-C [address] [place] [address] 10/24/2024 10:30 AM EST Nurse Only Ancillary [address] [place] [address] [place], Nurse Annual [address] [place] [address] Pending Results Name Type Priority Associated Diagnoses Date /Time TSH WITH FREE T4 IF INDICATED Lab Routine Hypothyroidism due to acquired atrophy of thyroid 03/07/2024 12:34 PM EDT PSA WITH FREE PSA IF INDICATED Lab Routine Elevated prostate specific antigen (PSA) 03/07/2024 12:34 PM EDT HEMOGLOBIN A1C Lab Routine Type 2 diabetes mellitus with stage 3b chronic kidney disease, without long-term current use of insulin (HCC) 03/07/2024 12:34 PM EDT COMPREHENSIVE METABOLIC PANEL Lab Routine Type 2 diabetes mellitus with stage 3b chronic kidney disease, without long-term current use of insulin (HCC) 03/07/2024 12:34 PM EDT BNP, NT-PRO Lab Routine Systolic congestive heart failure, unspecified HF chronicity ([facility]) 03/07/2024 12:34 PM EDT Health Maintenance Due Date Last Done Comments COVID-19 Vaccine ( season) 2023 10/01/2022, 06/17/2021, 11/14/2020, Additional history exists Diabetic Foot Exam 04/21/2024 04/21/2023, 1 , 05/28/2020, Additional history exists Influenza Vaccine (FLU shot) (#1) 2024 04/27/2023, 06/27/2022, 06/05/2021, Additional history exists GFR 05/10/2024 11/08/2023, 100 02/2023, 03/19/2023, Additional history exists HbA1c 05/10/2024 11/08/2023, 1002/2023, 10/01/2022, Additional history exists CKD HGB USE SMARTSET 41475 05/29/202405/29, 03/19/2023, 03/19/2023, Additional history exists CKD PHOS USE SMARTSET 97784 05/29/20240 02/2023, 10/01/2022, 12/04/2020, Additional history exists TSH 07/01/2024 07/01/2023, 0 02/2023, 03/19/2023, Additional history exists Depression Screening 10/20/2024 10/21/2023 B-12 11/07/2024 11/08/2023, 020 04/2023, 12/04/2020, Additional history exists Albumin/Creatinine Ratio 11/08/2024 032 024, 10/08/2022, 11/30/2017, Additional history exists Diabetic Eye Exam 01/24/2025 01/25/2024, , 06/15/2023, Additional history exists DTaP,Tdap,and Td Vaccines (3 [...] this encounter Medical Devices Implanted Type Area Manager Discovery Device Identifier Shelf Expiration Date Model / Serial / Lot Sut Steel 6 M654g - [id number] Implanted:Qty: 4 on 10/21/2015 by Riki Chan MD at OR [facility] N/A: Chest JNJ : [employer] 07/22/2020 M654G / / [id number] Marker Coronary Amgm-Sd - [id number] Implanted:Qty: 1 on 10/21/2015 by Riki Chan MD at OR [facility] N/A: Chest [employer] 08/22/2018 AMGM-SD / / [id number] Marker Coronary Amgm-Sd - [id number] Implanted:Qty: 1 on 10/21/2015 by Riki Chan MD at OR [facility] Chest [employer] 06/22/2018 AMGM-SD / / [id number] documented as of this encounter Visit Diagnoses Diagnosis Hypothyroidism due to acquired atrophy of thyroid Elevated prostate specific antigen (PSA) Type 2 diabetes mellitus with stage 3b chronic kidney disease, without long-term current use of insulin (HCC) Systolic congestive heart failure, unspecified HF chronicity (HCC) documented in this encounter Advance Directives * [...] and were consensually agreed upon. Care Teams Flat Sorter Processor Relationship Specialty Start Date End Date Sandra Goldstein MD [address] [place] [address] [place] [phone] PCP - General Family Medicine 02/22/19 documented as of this encounter
--- OUTSIDE RECORDS SUMMARY | 2024-05-13 11:42 | External Medical Summary ---
Author Name Unknown Address Unknown Organization K01:[facility] [place] [address] [place] [address] Laboratory Report Ordering Provider Test Date Status KARLIETING AN 03/07/2024 12:34:55 Final Observation Date Value Abnormality Reference (Units ) Status HbA1C 03/07/2024 12:34:55 5.5 4.0-5.6 (% ) Final The use of HbA1c to monitor glycemic status is based on normal hemoglobin and HbA composition. This test should not be used in patients with abnormal hemoglobin that affects the half life of the red blood cell or the in vivo glycation rates. Glucose, estimated average 03/07/2024 12:34:55 111 <126 (mg/dL) Final Performing Location [facility] [place] [facility] [address] [facility] [address]
--- OUTSIDE RECORDS SUMMARY | 2024-05-13 11:42 | External Medical Summary ---
Author Name Unknown Address Unknown Organization K01[place] [place] [address] [place] [address] Laboratory Report Ordering Provider Test Date Status TNIG ZIEGLER 03/07/2024 12:34:55 Final Exclude Heart Failure: <300 pg/mL
Diagnose Heart Failure:
Age <50 yr: >450 pg/mL
50-75 yr: >900 pg/mL
>75 yr: >1800 pg/mL
GFR is 30-59 mL/min: >1200 pg/mL or Age- adjusted values
GFR <30 mL/min: do not use, not reliable

Prognostic threshold: 1000 pg/mL Observation Date Value Abnormality Reference (Units ) Status BNP, Pro-hormone 03/07/2024 12:34:55 5562 Above high no rmal <300 (pg/mL) Final Performing Location [facility] [place] [address] [place] [address]
--- OUTSIDE RECORDS SUMMARY | 2024-05-13 11:42 | External Medical Summary ---
Author Name Unknown Address Unknown Organization K01:[facility] [place] [address] [place] [address] Laboratory Report Ordering Provider Test Date Status TING ZIEGLER 03/07/2024 12:34:55 Final Observation Date Value Abnormality Reference (Units ) Status TSH 03/07/2024 12:34:55 0.67 0.27-4.20 (uIU/mL) Final Performing Location [facility] [place] [address] [facility] [address]
--- OUTSIDE RECORDS SUMMARY | 2024-05-13 11:42 | External Medical Summary | Summary of Care ---
Author Name Unknown Organization [facility] Address [address] [place] [address] Phone [phone] Care Team Providers Care Game Farm Supervisor Name Role Phone Sandra Goldstein MD Primary Care Prov ider Encounter Details Date Type Department Care Team (Late st Contact Info) Description 03/07/2024 Orders Only Vascular Surgery, [facility] [address] [facility] [place] [address] Regis Gaspar PA-C [address] [place] [address] PAD (peripheral artery disease) ([facility])*; Stage 3b chronic kidney disease (HCC) Allergies Active Allergy Reactions Criticality Noted Date [...] hemoglobin A1c goal of less than 8.0% ([facility]),Coronary artery disease involving [place] coronary artery of [place] heart without angina pectoris Take 1 Tablet by mouth in the morning. 90 Tablet 3 10/19/2023 Active Clopidogrel Bisulfate 75 MG Oral Tablet (pLAVix)Indications: PAD (peripheral artery disease) ([facility]) Take 1 Tablet by mouth in [...] disease, without long-term current use of insulin ([facility]) TAKE ONE TABLET BY MOUTH EVERY [...] bedtime. 90 Tablet 3 10/19/2023 Active Nystatin 384334 UNIT/GM External CreamIndications:Can didal diaper dermatitis Apply [...] CHF 05/26/2019 05/22/2022 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 security sme 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 [...] mRNA, LNP-s, No Pre serve, 2-Dose Series ([employer]) 06/17/2021,11/14/2020,10/24/2020 Covid-19, Mrna, Lnp-s, Pf, B ivalent, [...] Progress Notes * Regis Gaspar PA-C - 03/07/2024 3:39 PM EDT Checking renal status, prior to near future CTA w/ runoff. Added on to labs already done today documented in this encounter Plan of Treatment Upcoming Encounters Date Type Department Care Team (Late st Contact Info) Description 03/08/2024 2:50 PM EDT Office Visit Vascular Surgery, [facility] [address] [facility] [place] [address] Shaun Herr MD [address] [place] [address] 04/07/2024 8:15 AM EDT Office Visit [facility] [address] [place] [address] Mary Jane Cordova MD 200 [place] [address] 04/11/2024 9:30 AM EDT Office Visit [facility] 16 [place] [address] Marshall Paez, 16 [place] [address] 04/19/2024 9:00 AM EDT Office Visit Urology, [facility] [address] [facility] [place] [address] Regan Alejandro MD [address] [place] [address] 05/02/2024 2:45 PM EDT Office Visit [facility], [facility] [place] [address] Regan Alejandro MD [address] [place] [address] 06/24/2024 9:00 AM EDT Office Visit Family Practice [facility] [address] [place] [address] Sandra Goldstein MD [address] [place] [address] [place] [address] 09/12/2024 10:30 AM EST Office Visit Cardiology [address] [place] [address] Luiz Pina PA-C [address] [facility] [place] [address] 10/24/2024 10:30 AM EST Nurse Only Ancillary [address] [place] [address] [place], Nurse Annual [address] [place] [address] Scheduled Orders Name Type Priority Associated Diagnoses Orde r Schedule BASIC METABOLIC PANEL Lab Routine PAD (peripheral artery disease) (HCC) Stage 3b chronic kidney disease (HCC) Expected: 03/07/2024, Expires: 03/07/2025 Health Maintenance Due Date Last Done Comments COVID-19 Vaccine ( season) 2023 10/01/2022, 06/17/2021, 11/14/2020, Additional history exists Diabetic Foot Exam 04/21/2024 04/21/2023, 1 , 05/28/2020, Additional history exists Influenza Vaccine (FLU shot) (#1) 2024 04/27/2023, 06/27/2022, 06/05/2021, Additional history exists GFR 05/10/2024 11/08/2023, 100 02/2023, 03/19/2023, Additional history exists HbA1c 05/10/2024 11/08/2023, 100 02/2023, 10/01/2022, Additional history exists CKD HGB USE SMARTSET 66911 05/29/202405/29, 03/19/2023, 03/19/2023, Additional history exists CKD PHOS USE SMARTSET 26258 05/29/20240 02/2023, 10/01/2022, 12/04/2020, Additional history exists [...] encounter Medical Devices Implanted Type Area Senior Windows Administrator Device Identifier Shelf Expiration Date Model / Serial / Lot Sut Steel 6 M654g - [id number] Implanted:Qty: 4 on 10/21/2015 by Riki Chan MD [place] [facility] [place]A: Chest JNJ : [employer] 07/22/2020 M654G / / [id number] Marker Coronary Amgm-Sd - [id number] Implanted:Qty: 1 on 10/21/2015 by Riki Chan MD [place] [facility] [place]/A: Chest [employer] 08/22/2018 AMGM-SD / / [id number] Marker Coronary Amgm-Sd - [id number] Implanted:Qty: 1 on 10/21/2015 by Riki Chan MD [place] [facility] Chest [employer] 06/22/2018 AMGM-SD / / [id number] documented as of this encounter Visit Diagnoses Diagnosis PAD (peripheral artery disease) (HCC)- Primary Peripheral vascular disease, unspecified Stage 3b chronic kidney disease (HCC) documented in this encounter Advance Directives [...] and were consensually agreed upon. Care Teams Game Farm Supervisor Relationship Specialty Start Date End Date Sandra Goldstein MD [address] [place] [address] [place] [address] PCP - General Family Medicine 02/22/19 documented as of this encounter
--- OUTSIDE RECORDS SUMMARY | 2024-05-13 11:42 | External Medical Summary | Summary of Care ---
Author Name Unknown Organization [facility] Address [address] [facility] [address] Phone [phone] Care Team Providers Care Manufacturing Engineer Supervisor Name Role Phone Sandra Goldstein MD Primary Care Prov ider Reason for Visit * Reason Comments Outpatient Testing Encounter Details Date Type Department Care Team (Late st Contact Info) Description 03/07/2024 12:40 PM EDT Laboratory Laboratory [address] [place] [address] [place], Lab [address] [place] [address] Hypothyroidism due to acquired atrophy of thyroid; Elevated prostate specific antigen (PSA); Type 2 diabetes mellitus with stage 3b chronic kidney disease, without long-term current use of insulin ([facility]); Systolic congestive heart failure, unspecified HF chronicity ([facility]) Allergies Active Allergy Reactions Criticality Noted Date [...] hemoglobin A1c goal of less than 8.0% ([facility]),Coronary artery disease involving [place] coronary artery of [place] heart without angina pectoris Take 1 Tablet by mouth in the morning. 90 Tablet 3 10/19/2023 Active Clopidogrel Bisulfate 75 MG Oral Tablet (pLAVix)Indications: PAD (peripheral artery disease) ([facility]) Take 1 Tablet by mouth in the morning. 90 Tablet 3 10/19/2023 Active Apixaban 5 MG Oral Tablet (Eliquis)Indications :Paroxysmal atrial fibrillation ([facility]) Take 1 Tablet by mouth [...] disease, without long-term current use of insulin ([facility]) TAKE ONE TABLET BY MOUTH [...] bedtime. 90 Tablet 3 10/19/2023 Active Nystatin 025986 UNIT/GM External CreamIndications:Can didal diaper dermatitis Apply [...] CHF 05/26/2019 05/22/2022 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 litigation attorney 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 [...] mRNA, LNP-s, No Pre serve, 2-Dose Series ([employer]) 06/17/2021,11/14/2020,10/24/2020 Covid-19, Mrna, Lnp-s, Pf, B ivalent, [...] 2:50 PM EDT Office Visit Vascular Surgery, [facility] [address] [facility] [place] [address] Shaun Herr MD [address] [place] [address] 04/07/2024 8:15 AM EDT Office Visit [facility] Surgery [facility] [address] [address] Mary Jane Cordova MD 200 [place] [address] 04/11/2024 9:30 AM EDT Office Visit [facility] Eye [facility] 16 [place] [address] Marshall Paez, 16 [place] [address] 04/19/2024 9:00 AM EDT Office Visit Urology, [facility] [address] [facility] [place] [address] Regan Alejandro MD [address] [place] [address] 05/02/2024 2:45 PM EDT Office Visit Urology, [facility] [address] [place] [address] Regan Alejandro MD [address] [place] [address] 06/24/2024 9:00 AM EDT Office Visit Family Practice [facility] [address] [place] [address] Sandra Goldstein MD [address] [place] [address] [place] [address] 09/12/2024 10:30 AM EST Office Visit Cardiology [address] [place] [address] Luiz Pina PA-C [address] [place] [address] 10/24/2024 10:30 AM EST Nurse Only Ancillary [address] [place] [address] [place], Nurse Annual [address] [place] [address] Pending Results Name Type Priority Associated Diagnoses [...] Systolic congestive heart failure, unspecified HF chronicity ([facility]) 03/07/2024 12:34 PM EDT Health Maintenance Due [...] Additional history exists CKD HGB USE SMARTSET 09045 05/29/202405/29, 03/19/2023, 03/19/2023, Additional history exists CKD PHOS USE SMARTSET 04131 05/29/20240 02/2023, 10/01/2022, 12/04/2020, Additional history exists [...] this encounter Medical Devices Implanted Type Area [employer] Director Device Identifier Shelf Expiration Date Model / Serial / Lot Sut Steel 6 M654g - [id number] Implanted:Qty: 4 on 10/21/2015 by Riki Chan MD at [place] [facility] N/A: Chest JNJ : [employer] 07/22/2020 M654G / / [id number] Marker Coronary Amgm-Sd - [id number] Implanted:Qty: 1 on 10/21/2015 by Riki Chan MD at OR [facility] N/A: Chest [employer] 08/22/2018 AMGM-SD / / [id number] Marker Coronary Amgm-Sd - [id number] Implanted:Qty: 1 on 10/21/2015 by Riki Chan MD at OR [facility] Chest [employer] 06/22/2018 AMGM-SD / / [id number] documented as of this encounter Visit Diagnoses [...] and were consensually agreed upon. Care Teams Manufacturing Engineer Supervisor Relationship Specialty Start Date End Date Sandra Goldstein MD [address] [place] [address] [place] [phone] PCP - General Family Medicine 02/22/19 documented as of this encounter
--- OUTSIDE RECORDS SUMMARY | 2024-05-13 11:42 | External Medical Summary | Summary of Care ---
Author Name Unknown Organization [facility] Address [address] [facility] [address] Phone [phone] Care Team Providers Care Figurine Maker Name Role Phone Sandra Goldstein MD Primary Care Prov ider Reason for Referral * Evaluate & Treat - Unlimited Visits (Within 10 days (routine)) - Authorized Specialty Diagnoses / Procedures Referred By Contac t Referred To Contact Wound Care Diagnoses Open wound of right lower leg, initial encounter Sandra Goldstein MD [address] [place] [address] [place] [address] Referral ID Status Reason Start Date Expiration Date Visits Requested Visits Authorized [id number] Authorized Specialty Services Required 03/07/[phone] Question Answer Referral Priority Within 10 days (routine) Where should this appointment be scheduled? [facility] Comments Assess for: Present over 30 days Reason for Visit * Reason Comments Follow Up 4 mo f/u Encounter Details Date Type Department Care Team (Latest Contact Info) Description 03/07/2024 11:00 AM EDT Office Visit Family Medicine [address] [place] [phone] Sandra Goldstein MD [address] [place] [address] [place] [address] Atherosclerosis of [place] artery of right lower extremity with intermittent claudication (HCC)*; PAD (peripheral artery disease) ([facility]); Type 2 diabetes mellitus with hemoglobin A1c goal of less than 8.0% (HCC); Dyslipidemia, goal LDL below 70; Hypothyroidism due to acquired atrophy of thyroid; Systolic congestive heart failure, unspecified HF chronicity (HCC); Open wound of right lower leg, initial encounter Allergies Active Allergy Reactions Criticality Noted Date [...] goal of less than 8.0% ([facility]),Coronary artery disease involving [place] coronary artery of [place] heart without angina pectoris Take 1 Tablet by mouth in the morning. 90 Tablet 3 10/19/2023 Active Clopidogrel Bisulfate 75 MG Oral Tablet (pLAVix)Indications: PAD (peripheral artery disease) ([facility]) Take 1 Tablet by mouth in [...] to breakfast or other meds) 90 Tablet 10/19/2023 Active metFORMIN HCl 1000 MG Oral Tablet (Glucophage)Indicati ons:Type 2 diabetes mellitus with stage 3b chronic kidney disease, without long-term current use of insulin (HCC) TAKE ONE TABLET BY MOUTH EVERY DAY with breakfast 90 Tablet 10/19/2023 Active Tamsulosin HCl 0.4 MG Oral Capsule (Flomax)Indications: BPH without obstruction/lower urinary tract symptoms Take one capsule daily 90 Capsule 10/19/2023 Active Losartan Potassium 50 MG Oral Tablet (Cozaar)Indications: HTN, goal below 150/90 Take 1/2 Tablets by mouth in the morning and before bedtime. 90 Tablet 10/19/2023 Active Nystatin 575589 UNIT/GM External CreamIndications:Can didal diaper dermatitis Apply [...] mouth 2 times a day. 180 Tablet 10/19/2023 Active Potassium Chloride Valentina ER 10 MEQ Oral Tablet Extended ReleaseIndications:A cute decompensated heart failure (HCC) Take 1 Tablet by mouth every other day. 16 Tablet 10/19/2023 Active Amiodarone HCl 200 MG Oral Tablet (Cordarone)Indicatio ns:Paroxysmal atrial fibrillation (HCC) Take 1 Tablet by mouth in the morning. 100 Tablet 10/26/2023 Active Furosemide 20 MG Oral Tablet (Lasix)Indications:A cute decompensated heart failure (HCC) Take 1 Tablet by mouth in the morning. 100 Tablet 10/26/2023 Active Ciprofloxacin HCl 500 MG Oral [...] CHF 05/26/2019 05/22/2022 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 locate technician 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 [...] mRNA, LNP-s, No Pre serve, 2-Dose Series ([employer]) 06/17/2021,11/14/2020,10/24/2020 Covid-19, Mrna, Lnp-s, Pf, B ivalent, [...] Sign Reading Time Taken Comments Blood Pressure 110/70 03/07/2024 11:37 AM EDT Pulse 75 03/07/2024 11:37 AM EDT Temperature 36.4 C (97.5 F) 03/07/2024 11:37 AM E DT Respiratory Rate - - Oxygen Saturation 98% 03/07/2024 11:37 AM EDT Inhaled Oxygen Concentration - - Weight 96.2 kg (212 lb) 03/07/2024 11:37 AM EDT Height - - Body Mass Index 32.23 10/21/2023 10:30 AM EST documented in this [...] as of this encounter Progress Notes * Delbert Jenkins, Sandra Chávez MD - 03/07/2024 11:41 AM EDT Images from the original note were not included. Subjective C Junior Garcia is a 82 year old male. Chief Complaint Patient presents with Follow Up 4 mo f/u HPI: Here today for routine chronic disease management and preventive care. PAD/ Foot pain; On Plavix, Statin. H/o diabetic foot ulcer (left foot, chronic) Was seen by Vascular Surgery in December 2023. Stable, no evidence of ulcers at that time. Will be seen yearly. Has new wounds to right calf and wellington and reports claudication of right leg with walking for the past 1-2 months. Weight. Appetite improved after stopping ozempic. PSA/BPH. Tolerating flomax. PSA up to 14. Scheduled for prostate biopsy in Apr with Dr Alejandro. DM2 with neuropathy and CKD 3b. Last A1C 5.5. GFR 39. Tolerating metformin. Due for labs Tinea cruris. Persistent. Has largely resolved with daily bathing/ skin care. CHF/Afib/ HTN. 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 Has intermittent VT and SVT, on amiodarone. Follows with Cardiology. Last EF 30-35%. Tolerating losartan, metoprolol, furosemide amiodarone, eliquis and aspirin. Lipids. Not taking lipitor 40mg, again "pharmacy n ever called". Last LDL 70 . Thyroid. Asymptomatic; taking Levothyroxine 100mcg daily. Last TSH was wnl. Prev: Sees podiatry for foot ulcer. Due for labs, declines covid vaccine. PMH: Patient Active Problem List Diagnosis History of [...] left History of colon polyps Ventricular tachycardia (HCC) AICD (automatic cardioverter/defibrillator) present CSA (central sleep [...] to acquired atrophy of thyroid Elevated PSA Current Outpatient Medications Medication Sig Dispense Refill [...] Reported on 10/19/2023) 60 g 2 Nystatin 780153 UNIT/GM External Cream Apply topically to affected area 2 times a day. To affacted area for two weeks. (Patient not taking: Reported on 12/22/2023) 30 g 5 Current Facility-Administered Medications Medication Dose Route Frequency Provider Last Rate Last Admin Nystatin (Nystop) powder Topical BID(AM/PM) Sandra Goldstein MD Review of patient's allergies indicates: Allergen Reactions Lisinopril Cough Objective BP 110/70 | Pulse 75 | Temp 36.4 C (97.5 F) (Tympanic) | Wt 96.2 kg (212 lb) | SpO2 98% | BMI 32.23 kg/m | BSA 2.15 m Physical Exam Constitutional: Appearance: Normal appearance. HENT: Head: Normocephalic. Cardiovascular: Rate and Rhythm: Normal rate and regular rhythm. Heart sounds: Murmur heard. Comments: Unable to palpate pulses right DP and PT arteries Pulmonary: Effort: Pulmonary effort is normal. Breath sounds: Normal breath sounds. Musculoskeletal: Cervical back: Normal range of motion and neck supple. Skin: General: Skin is warm and dry. Findings: Lesion present. Neurological: Mental Status: He is alert. Psychiatric: Mood and Affect: Mood normal. ASSESSMENT/PLAN: Atherosclerosis of [place] artery of right lower extremity with intermittent claudication (HCC) (Primary) PAD (peripheral artery disease) (HCC) Type 2 diabetes mellitus with hemoglobin A1c goal of less than 8.0% (HCC) Dyslipidemia, goal LDL below 70 Hypothyroidism due to acquired atrophy of thyroid Systolic congestive heart failure, unspecified HF chronicity (HCC) - BNP, NT-PRO; Future; Expected date: 03/07/2024 Open wound of right lower leg, initial encounter - WOUND CARE REFERRAL OP Follow-up: Return in about 3 months (around 06/07/2024). | Check-out note: Schedule appt with Vascular Surgery within 1-2 weeks (Dr Herr) PAD, arterial wounds. With intermittent claudication. Needs angiography and vascular surgery. Will check renal function prior to angiography. Elderly patient - has mail order pharmacy, uses weekly pill minder, appetite improved. Sandra Judge MD documented in this encounter Nursing Notes * Sonia Antoine LPN - 03/07/2024 11:39 AM EDT Chief Complaint Patient presents with Follow Up 4 mo f/u Kvng Lower leg swelling. Taking Lasix 20 mg daily Right Lower leg large open wound and Small open area on wellington States started out as blisters then opened up 1 wk ago Last vascular surgeon apt 12/22/23 The patient has been properly identified by confirmation of name and date of . documented in this encounter Plan of Treatment Upcoming Encounters Date Type Department Care Team (Late st Contact Info) Description 03/08/2024 2:50 PM EDT Office Visit Vascular Surgery, [facility] [address] [facility] [place] [address] Shaun Herr MD [address] [place] [address] 04/07/2024 8:15 AM EDT Office Visit MOHS Surgery [facility] [address] [place] [address] Mary Jane [place] MD [address] [facility] [place] [address] 04/11/2024 9:30 AM EDT Office Visit [facility] [address] [place] [address] Marshall Paez, [address] [place] [address] 04/19/2024 9:00 AM EDT Office Visit Urology, [facility] [address] [facility] [place] [address] Regan Alejandro MD [address] [place] [address] 05/02/2024 2:45 PM EDT Office Visit Urology, [facility] [address] [facility] [place] [address] Regan Alejandro MD [address] [facility] [place] [address] 06/24/2024 9:00 AM EDT Office Visit Family Practice [facility] [address] [facility] [place] [address] Sandra Goldstein MD [address] [place] [address] [place] [address] 09/12/2024 10:30 AM EST Office Visit Cardiology [address] [place] [address] Luiz Pina PA-C [address] [facility] [place] [address] 10/24/2024 10:30 AM EST Nurse Only Ancillary [address] [place] [address] [place], Nurse Annual [facility]ness [address] [place] [address] [place] [address] Pending Results Name Type Priority Associated Diagnoses Date /Time BNP, NT-PRO Lab Routine Systolic congestive heart failure, unspecified HF chronicity (HCC) 03/07/2024 12:34 PM EDT Scheduled Orders Name Type Priority Associated Diagnoses Orde r Schedule BNP, NT-PRO Lab Routine Systolic congestive heart failure, unspecified HF chronicity (HCC) Expected: 03/07/2024 (Approximate), Expires: 03/07/2025 Scheduled Referrals Name Type Priority Associated Diagnoses Orde r Schedule WOUND CARE REFERRAL OP Referral Within 10 days (routine) Open wound of right lower leg, initial encounter Ordered: 03/07/2024 Health Maintenance Due Date Last Done Comments COVID-19 Vaccine ( season) 2023 10/01/2022, 06/17/2021, 11/14/2020, Additional history exists Diabetic Foot Exam 04/21/2024 04/21/2023, 1 , 05/28/2020, Additional history exists Influenza Vaccine (FLU shot) (#1) 2024 04/27/2023, 06/27/2022, 06/05/2021, Additional history exists GFR 05/10/2024 11/08/2023, 100 02/2023, 03/19/2023, Additional history exists HbA1c 05/10/2024 11/08/2023, 100 02/2023, 10/01/2022, Additional history exists CKD HGB USE SMARTSET 30910 05/29/202405/29, 03/19/2023, 03/19/2023, Additional history exists CKD PHOS USE SMARTSET 51676 05/29/20240 02/2023, 10/01/2022, 12/04/2020, Additional history exists [...] this encounter Medical Devices Implanted Type Area Companion Caregiver Device Identifier Shelf Expiration Date Model / Serial / Lot Sut Steel 6 M654g - [id number] Implanted:Qty: 4 on 10/21/2015 by Riki Chan MD at [place] [facility] [facility] N/A: Chest JNJ : [employer] 07/22/2020 M654G / / [id number] Marker Coronary Amgm-Sd - [id number] Implanted:Qty: 1 on 10/21/2015 by Riki Chan MD at [place] [facility] [place] [facility] N/A: Chest [employer] 08/22/2018 AMGM-SD / / [id number] Marker Coronary Amgm-Sd - [id number] Implanted:Qty: 1 on 10/21/2015 by Riki Chan MD at [place] [facility] [place] Chest [employer] 06/22/2018 AMGM-SD / / [id number] documented as of this encounter Visit Diagnoses Diagnosis Atherosclerosis of [place] artery of right lower extremity with intermittent claudication (HCC)- Primary Atherosclerosis of [place] arteries of the extremities with intermittent claudication PAD (peripheral artery disease) (HCC) Peripheral vascular disease, unspecified Type 2 diabetes mellitus with hemoglobin A1c goal of less than 8.0% (HCC) Dyslipidemia, goal LDL below 70 Other and unspecified hyperlipidemia Hypothyroidism due to acquired atrophy of thyroid Systolic congestive heart failure, unspecified HF chronicity ([facility]) Open wound of right lower leg, initial encounter documented in this encounter Advance Directives * [...] and were consensually agreed upon. Care Teams Figurine Maker Relationship Specialty Start Date End Date Sandra Goldstein MD [address] [place] [address] [place] [phone] PCP - General Family Medicine 02/22/19 documented as of this encounter
--- OUTSIDE RECORDS SUMMARY | 2024-05-13 11:42 | External Medical Summary ---
Author Name Unknown Address Unknown Organization K01:[facility] [place] - [address] [facility] [place] [address] Laboratory Report Ordering Provider Test Date Status TING ZIEGLER 03/07/2024 12:34:55 Final Observation Date Value Abnormality Reference (Units ) Status BUN 03/07/2024 12:34:55 25 Above high normal 6-20 (mg/dL) Final Creatinine 03/07/2024 12:34:55 1.6 Above high normal 0.6-1.2 (mg/dL) Final Glomerular filtration rate/1.73 sq M.predicted [Volume Rate/Area] in Serum, Plasma or Blood by Creatinine-based formula (CKD-EPI) 03/07/2024 12:34:55 42 Below low normal >=60 (mL/min) Final eGFR is calculated based on the CKD-EPI 2020 equation Sodium 03/07/2024 12:34:55 139 135-146 (m mol/L) Final Potassium 03/07/2024 12:34:55 4.7 3.5-5.1 (m mol/L) Final Cl 03/07/2024 12:34:55 103 98-107 (mm ol/L) Final CO2 03/07/2024 12:34:55 23 22-32 (mmo l/L) Final Anion gap 03/07/2024 12:34:55 13 7-15 (mmol /L) Final Glucose 03/07/2024 12:34:55 140 Above high normal 70 -120 (mg/dL) Final Albumin 03/07/2024 12:34:55 4.1 3.8-5.0 (g /dL) Final AST (Aspartate aminotransferase) 03/07/2024 12:34:55 18 10-50 (U/L) Fin al Alk Phos 03/07/2024 12:34:55 133 Above high normal 35 -130 (U/L) Final Bilirubin, Total 03/07/2024 12:34:55 1.2 <=1 .2 (mg/dL) Final Calcium 03/07/2024 12:34:55 9.3 8.4-10.2 ( mg/dL) Final Protein 03/07/2024 12:34:55 6.5 6.0-8.3 (g /dL) Final ALT (Alanine aminotransferase) 03/07/2024 12:34:55 14 10-50 (U/L) Ken acuna Performing Location [facility] [place] - [address] [facility] [address]
--- OUTSIDE RECORDS SUMMARY | 2024-05-13 11:42 | External Medical Summary | Summary of Care ---
Author Name Unknown Organization [facility] Address [address] [facility] [address] Phone [phone] Care Team Providers Care Brass Pourer Name Role Phone Sandra Goldstein MD Primary Care Prov ider Reason for Visit * Reason Onset Date Comments [facility]: Screening 03/24/2024 Encounter Details Date Type Department Care Team (Late st Contact Info) Description 03/24/2024 Telephone [facility], [place] [address] [facility] [place] [address] Region, Nurse [facility] [address] [facility] [place] [address] [facility]: Screening Allergies Active Allergy Reactions Criticality Noted Date Comments Lisinopril Cough Low 12/21/2012 documented as of this encounter (statuses as of 03/24/2024) Medications Medication Sig Dispensed Refills Start Date [...] hemoglobin A1c goal of less than 8.0% ([facility]),Coronary artery disease involving [place] coronary artery of [place] heart without angina pectoris Take 1 Tablet by mouth in the morning. 90 Tablet 3 10/19/2023 Active Additional Information Patient not taking.Reported on 03/16/2024 Clopidogrel Bisulfate 75 MG Oral Tablet (pLAVix)Indications: PAD (peripheral artery disease) ([facility]) Take 1 Tablet by mouth in the [...] long-term current use of insulin ([facility]) TAKE ONE TABLET BY MOUTH EVERY DAY [...] bedtime. 90 Tablet 3 10/19/2023 Active Nystatin 058553 UNIT/GM External CreamIndications:Can didal diaper dermatitis Apply [...] as of this encounter (statuses as of 03/24/2024) Active Problems Problem Noted Date Diagnosed Date [...] as of this encounter (statuses as of 03/24/2024) Resolved Problems Problem Noted Date Diagnosed Date [...] 05/26/2019 05/22/2022 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 lunchroom operator 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 [...] as of this encounter (statuses as of 03/24/2024) Immunizations Name Administration Dates Next Due COVID-19 mRNA, LNP-s, No Pre serve, 2-Dose Series ([employer]) 06/17/2021,11/14/2020,10/24/2020 Covid-19, Mrna, Lnp-s, Pf, B ivalent, [...] No 10/01/2023 Does the household have a [facility] source of income? (Household - for [...] encounter Miscellaneous Notes * Telephone Encounter - Ruth Albert LPN - 03/24/2024 4:07 PM EDT C Junior Garcia was referred as a potential candidate for enrollment for [facility]. A review of this chart was completed and: C meets criteria for [facility]. Jump to Initiation Referring care team was notified via : [employer] communication Ruth Albert LPN [facility] 03/24/2024,4:07 PM documented in this encounter Plan of Treatment Upcoming Encounters Date Type Department Care Team (Late st Contact Info) Description 04/07/2024 8:15 AM EDT Office Visit MOHS Surgery [facility] [address] [place] [address] Mary Jane [place] MD [address] [place] [address] 04/17/2024 10:40 AM EDT Office Visit [facility], [facility] [address] Marshall Paez, DO [address] [place] [address] 04/19/2024 9:00 AM EDT Office Visit Urology, [facility] [address] [facility] [place] [address] Regan Alejandro MD [address] [place] [address] 05/02/2024 2:45 PM EDT Office Visit Urology, [facility] [place] [address] Regan Alejandro MD [address] [place] [address] 05/12/2024 2:30 PM EDT Office Visit Cardiology, [facility] [address] [place] [address] Luiz Pina PA-C [address] [place] [address] 06/24/2024 9:00 AM EDT Office Visit Family Practice [facility] [address] [place] [address] Sandra Goldstein MD [address] [place] [address] [place] [address] 09/12/2024 10:30 AM EST Office Visit Cardiology [address] [place] [address] Luiz Pina, JODI [address] [place] [address] 10/24/2024 10:30 AM EST Nurse Only Ancillary [address] [place] [address] [place], Nurse Annual [address] [place] [address] Health Maintenance Due Date Last Done Comments COVID-19 Vaccine (2022- season) 2023 10/01/2022, 06/17/2021, 11/14/2020, Additional history exists Diabetic Foot Exam 04/21/2024 04/21/2023, 1 , 05/28/2020, Additional history exists Influenza Vaccine (FLU shot) (#1) 2024 04/27/2023, 06/27/2022, 06/05/2021, Additional history exists CKD HGB USE SMARTSET 53961 05/29/202405/29, 03/19/2023, 03/19/2023, Additional history exists CKD PHOS USE SMARTSET 86624 05/29/2024 1002/2023, 10/01/2022, 12/04/2020, Additional history exists [...] this encounter Medical Devices Implanted Type Area Orthopedic Physical Therapist Device Identifier Shelf Expiration Date Model / Serial / Lot Jenelle Srinivasan 6 M654g - [id number] Implanted:Qty: 4 on 10/21/2015 by Riki Chan MD at [place] [facility] N/A: Chest JNJ : [employer] 07/22/2020 M654G / / [id number] Marker Coronary Amgm-Sd - [id number] Implanted:Qty: 1 on 10/21/2015 by Riki Chan MD at OR [facility] N/A: Chest [employer] 08/22/2018 AMGM-SD / / [id number] Marker Coronary Amgm-Sd - [id number] Implanted:Qty: 1 on 10/21/2015 by Riki Chan MD at OR [facility] Chest [employer] 06/22/2018 AMGM-SD / / [id number] documented as of this encounter Advance Directives [...] and were consensually agreed upon. Care Teams Brass Pourer Relationship Specialty Start Date End Date Sandra Goldstein MD [address] [place] [address] [place] [address] PCP - General Family Medicine 02/22/19 documented as of this encounter
--- OUTSIDE RECORDS SUMMARY | 2024-05-13 11:42 | External Medical Summary ---
Author Name Unknown Address Unknown Organization K01:[facility] [place] [address] [place] [address] Laboratory Report Ordering Provider Test Date Status FORD AGUAYO 03/07/2024 12:34:55 Final Observation Date Value Abnormality Reference (Units ) Status Free PSA 03/07/2024 12:34:55 1.76 (ng/mL) Final Free PSA % 03/07/2024 12:34:55 9 Below low normal >2 5 (%) Final Performing Location [facility] [place] [address] [place] [address]
--- OUTSIDE RECORDS SUMMARY | 2024-05-13 11:42 | External Medical Summary | Summary of Care ---
Author Name Unknown Organization [facility] Address [address] [facility] [address] Phone [phone] Care Team Providers Care Javascript Application Developer Name Role Phone Sandra Goldstein MD Primary Care Prov ider Reason for Visit * Reason Comments Outpatient Testing Encounter Details Date Type Department Care Team (Late st Contact Info) Description 03/07/2024 12:40 PM EDT Laboratory Laboratory [address] [place] [phone] [place], Lab [address] [place] [address] Hypothyroidism due to acquired atrophy of thyroid; Elevated prostate specific antigen (PSA); Type 2 diabetes mellitus with stage 3b chronic kidney disease, without long-term current use of insulin ([facility]); Systolic congestive heart failure, unspecified HF chronicity ([facility]) Allergies Active Allergy Reactions Criticality [...] A1c goal of less than 8.0% ([facility]),Coronary artery disease involving [place] coronary artery of [place] heart without angina pectoris Take 1 Tablet by mouth in the morning. 90 Tablet 3 10/19/2023 Active Clopidogrel Bisulfate 75 MG Oral Tablet (pLAVix)Indications: PAD (peripheral artery disease) ([facility]) Take 1 Tablet by mouth in the morning. 90 Tablet 3 10/19/2023 Active Apixaban 5 MG Oral Tablet (Eliquis)Indications :Paroxysmal atrial fibrillation ([facility]) Take 1 Tablet by mouth [...] without long-term current use of insulin ([facility]) TAKE ONE TABLET BY MOUTH [...] bedtime. 90 Tablet 3 10/19/2023 Active Nystatin 498829 UNIT/GM External CreamIndications:Can didal diaper dermatitis Apply [...] CHF 05/26/2019 05/22/2022 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 sole seamer 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 [...] mRNA, LNP-s, No Pre serve, 2-Dose Series ([employer]) 06/17/2021,11/14/2020,10/24/2020 Covid-19, Mrna, Lnp-s, Pf, B ivalent, [...] 2:50 PM EDT Office Visit Vascular Surgery, [facility] [address] [facility] [place] [address] Shaun Herr MD [address] [place] [address] 04/07/2024 8:15 AM EDT Office Visit [facility] Surgery [facility] [address] [facility] [place] [address] Mary Jane Cordova MD [address] [place] [address] 04/11/2024 9:30 AM EDT Office Visit [facility] [address] [place] [address] Marshall Paez, [address] [place] [address] 04/19/2024 9:00 AM EDT Office Visit Urology, [facility] [address] [facility] [place] [address] Regan Alejandro MD [address] [place] [address] 05/02/2024 2:45 PM EDT Office Visit Urology, [facility] [address] [place] [address] Regan Alejandro MD [address] [place] [address] 06/24/2024 9:00 AM EDT Office Visit Family Practice [facility] [address] [place] [address] Sandra Goldstein MD [address] [place] [address] [place] [address] 09/12/2024 10:30 AM EST Office Visit Cardiology [address] [place] [address] Luiz Pina PA-C [address] [place] [address] 10/24/2024 10:30 AM EST Nurse Only Ancillary [address] [place] [address] [place], Nurse Annual [address] [place] [address] Pending Results Name Type Priority Associated Diagnoses [...] Systolic congestive heart failure, unspecified HF chronicity ([facility]) 03/07/2024 12:34 PM EDT Health [...] Additional history exists CKD HGB USE SMARTSET 06284 05/29/202405/29, 03/19/2023, 03/19/2023, Additional history exists CKD PHOS USE SMARTSET 26238 05/29/20240 02/2023, 10/01/2022, 12/04/2020, Additional history exists [...] this encounter Medical Devices Implanted Type Area Airway Traffic Controller Device Identifier Shelf Expiration Date Model / Serial / Lot Sut Steel 6 M654g - [id number] Implanted:Qty: 4 on 10/21/2015 by Riki Chan MD [place] [facility] [place]: Chest JNJ : [employer] 07/22/2020 [id number] / / [id number] Marker Coronary Amgm-Sd - [id number] Implanted:Qty: 1 on 10/21/2015 by Riki Chan MD [place] [facility] [place] N/A: Chest [employer] 08/22/2018 AMGM-SD / / [id number] Marker Coronary Amgm-Sd - [id number] Implanted:Qty: 1 on 10/21/2015 by Riki Chan MD [place] [facility] [place] Chest [employer] 06/22/2018 AMGM-SD / / [id number] documented as of this encounter Visit Diagnoses [...] and were consensually agreed upon. Care Teams Javascript Application Developer Relationship Specialty Start Date End Date Sandra Goldstein MD [address] [place] [address] [place] [id number] PCP - General Family Medicine 02/22/19 documented as of this encounter
--- OUTSIDE RECORDS SUMMARY | 2024-05-13 11:42 | External Medical Summary ---
Author Name Unknown Address Unknown Organization K01:[facility] - [address] [place] [address] Laboratory Report Ordering Provider Test Date Status FORD AGUAYO 03/07/2024 12:34:55 Final Observation Date Value Abnormality Reference (Units ) Status PSA 03/07/2024 12:34:55 20.81 Above high normal <4 .10 (ng/mL) Final Performing Location [facility] - [address] [place] [address]
--- OUTSIDE RECORDS SUMMARY | 2024-05-13 11:43 | External Medical Summary | Summary of Care ---
Author Name Unknown Organization [facility] Address [address] [facility] [place] [address] Phone [phone] Care Team Providers Care Trimming Cutter Machine Name Role Phone Sandra Goldstein MD Primary Care Prov ider Encounter Details Date Type Department Care Team (Late st Contact Info) Description 01/07/2024 Population Health External Data Unspecified Department Allergies Active Allergy Reactions Criticality Noted Date Comments Lisinopril Cough Low 12/21/2012 documented as of this encounter (statuses as of 01/14/2024) Medications Medication Sig Dispensed Refills Start Date [...] hemoglobin A1c goal of less than 8.0% ([facility]),Coronary artery disease involving [place] coronary artery of [place] heart without angina pectoris Take 1 Tablet by mouth in the morning. 90 Tablet 10/19/2023 Active Clopidogrel Bisulfate 75 MG Oral Tablet (pLAVix)Indications: PAD (peripheral artery disease) ([facility]) Take 1 Tablet by mouth in the morning. 90 Tablet 10/19/2023 Active Apixaban 5 MG Oral Tablet (Eliquis)Indications :Paroxysmal atrial fibrillation ([facility]) Take 1 Tablet by mouth [...] disease, without long-term current use of insulin ([facility]) TAKE ONE TABLET BY MOUTH EVERY DAY with breakfast 90 Tablet 10/19/2023 Active Tamsulosin HCl 0.4 MG Oral Capsule (Flomax)Indications: BPH without obstruction/lower urinary tract symptoms Take one capsule daily 90 Capsule 10/19/2023 Active Losartan Potassium 50 MG Oral Tablet (Cozaar)Indications: HTN, goal below 150/90 Take 1/2 Tablets by mouth in the morning and before bedtime. 90 Tablet 10/19/2023 Active Nystatin 025656 UNIT/GM External CreamIndications:Can didal diaper dermatitis Apply topically to affected area 2 times a day. To affacted area for two weeks. 30 g 10/19/2023 Active Additional Information Patient not taking.Reported on 12/22/2023 Metoprolol Succinate ER 50 MG Oral Tablet Extended Release 24 Hour (toPROL XL)Indications:Parox ysmal atrial fibrillation ([facility]),HTN, goal below 150/90,Chronic ischemic heart disease,VF (ventricular fibrillation) ([facility]) Take 1 Tablet by mouth [...] as of this encounter (statuses as of 01/14/2024) Active Problems Problem Noted Date Diagnosed Date Elevated PSA 10/21/2023 Hypothyroidism due to acquired atrophy of thyroi d 10/19/2023 Yeast dermatitis 04/21/2023 Type 2 diabetes mellitus wit h stage 3b chronic kidney disease, without long-term current use of insulin 09/15/2022 Scrotal swelling 03/16/2022 Tinea cruris 03/16/2022 Systolic congestive heart failure 12/02/2021 Type 2 diabetes mellitus wit h diabetic peripheral angiopathy without gangrene 12/02/2021 Peripheral vascular disease 12/02/2021 Hypertensive heart disease w ith systolic [...] as of this encounter (statuses as of 01/14/2024) Resolved Problems Problem Noted Date Diagnosed Date [...] CHF 05/26/2019 05/22/2022 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 fish rod maker 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 [...] as of this encounter (statuses as of 01/14/2024) Immunizations Name Administration Dates Next Due COVID-19 mRNA, LNP-s, No Pre serve, 2-Dose Series ([employer]) 06/17/2021,11/14/2020,10/24/2020 Covid-19, Mrna, Lnp-s, Pf, B ivalent, [...] Team (Late st Contact Info) Description 03/07/2024 11:00 AM EDT Office Visit Family Medicine [address] [place] [id number] Sandra Goldstein MD [address] [place] [address] [place] [address] 04/07/2024 8:15 AM EDT Office Visit [facility] Surgery [address] [address] Mary Jane Cordova MD [address] [place] [address] 04/19/2024 9:00 AM EDT Office Visit Urology, [facility] [address] [facility] [place] [address] Regan Alejandro MD [address] [place] [address] [place] [address] 05/02/2024 2:45 PM EDT Office Visit Urology, [facility] [address] [facility] [place] [address] Regan Alejandro MD [address] [place] [address] [place] [address] 10/24/2024 10:30 AM EST Nurse Only Ancillary [address] [place] [address] [place], Nurse Annual Wellness [address] [place] [address] [place] [address] Health Maintenance Due Date Last Done Comments COVID-19 Vaccine ( season) 2023 10/01/2022, 06/17/2021, 11/14/2020, Additional history exists Diabetic Foot Exam 04/21/2024 04/21/2023, 1 , 05/28/2020, Additional history exists GFR 05/10/2024 11/08/2023, 100 02/2023, 03/19/2023, Additional history exists HbA1c 05/10/2024 11/08/2023, 100 02/2023, 10/01/2022, Additional history exists CKD HGB USE SMARTSET 17833 05/29/202405/29, 03/19/2023, 03/19/2023, Additional history exists CKD PHOS USE SMARTSET 52495 05/29/20240 02/2023, 10/01/2022, 12/04/2020, Additional history exists Diabetic Eye Exam 06/15/2024 06/15/2023, , 04/21/2023, Additional history exists TSH 07/01/2024 07/01/2023, 0 02/2023, 03/19/2023, Additional history exists Depression Screening 10/20/2024 10/21/2023 B-12 11/07/2024 11/08/2023, 0204/2023, 12/04/2020, Additional history exists Albumin/Creatinine Ratio 11/08/2024 024, 10/08/2022, 11/30/2017, Additional history exists DTaP,Tdap,and Td Vaccines (3 - Td or Tdap) 03/27/2033 03/27/2023, 03/08/2013 Pneumococcal Vaccine: 65+ Years Completed 08/13/2015, 07/07/2012 Zoster Vaccines Completed 12/02/2021, 09/2020, 06/06/2020, Additional history exists Influenza Vaccine (FLU shot) Completed 04/27/2023, 06/27/2022, 06/05/2021, Additional history exists DXA Scan Discontinued GARDASIL-HPV IMMUNIZATION SERIES Aged Out No longer eligible based on patient's age to complete this topic Hepatitis B Aged Out No longer eligi ble based on patient's age to complete this topic MENINGOCOCCAL (MENACTRA/MENVEO) Aged Out No longer eligible based on patient's age to complete this topic documented as of this encounter Medical Devices Implanted Type Area Marketing Lead Device Identifier Shelf Expiration Date Model / Serial / Lot Sut Steel 6 M654g - [id number] Implanted:Qty: 4 on 10/21/2015 [place] [facility] [place]: Chest JNJ : [employer] 07/22/2020 M654G / / [id number] Marker Coronary Amgm-Sd - [id number] Implanted:Qty: 1 on 10/21/2015 [place] R[place] [facility] [place]A: Chest [employer] 08/22/2018 AMGM-SD / / [id number] Marker Coronary Amgm-Sd - [id number] Implanted:Qty: 1 on 10/21/2015 by Riki Chan [place] [facility] [place] Chest [employer] 06/22/2018 AMGM-SD / / [id number] documented as of this encounter Advance Directives [...] and were consensually agreed upon. Care Teams Trimming Cutter Machine Relationship Specialty Start Date End Date Sandra Goldstein MD [address] [place] [address] [place] [address] PCP - General Family Medicine 02/22/19 documented as of this encounter
--- OUTSIDE RECORDS SUMMARY | 2024-05-13 11:43 | External Medical Summary | Summary of Care ---
Author Name Unknown Organization [facility] Address [address] [facility] [place] [address] Phone [phone] Care Team Providers Care Bryologist Name Role Phone Sandra Goldstein MD Primary Care Prov ider Encounter Details Date Type Department Care Team (Late st Contact Info) Description 12/08/2023 Orders Only Family Medicine [address] [phone] Sandra Goldstein MD [address] [place] [address] [place] [address] Right foot pain* Allergies Active Allergy Reactions Criticality Noted Date Comments Lisinopril Cough Low 12/21/2012 documented as of this encounter (statuses as of 12/08/2023) Medications Medication Sig Dispensed Refills Start Date End Date Status oxygen GAS 1LPM bled through bipap 1 Each 0 11/28/2019 Active Additional Information Patient not taking.Reported on 04/21/2023 Vitamin D3 25 MCG (1000 UT) Oral Tablet (Vitamin D3)Indications:Vitam in D deficiency Take by mouth 2 Tablets in the morning. 180 Tablet 1 11/21/2021 Active BiPAP every night at bedtime . 0 Active Clotrimazole 1 % External Cream (Lotrimin) [...] doses in 15 minutes 25 Tablet 0 04/23/2023 Active Additional Information Patient not taking.Reported on 10/26/2023 Vitamin C 500 MG Oral Tablet Chewable Take 1 Tablet by mouth in the morning. 0 Active Multi-Vitamins Oral Tablet Take 1 Tablet by mouth in the morning. 0 Active Atorvastatin Calcium 40 MG Oral Tablet (Lipitor)Indications :Type 2 diabetes mellitus with hemoglobin A1c goal of less than 8.0% ([facility]),Coronary artery disease involving [place] coronary artery of [place] heart without angina pectoris Take 1 Tablet by mouth in the morning. 90 Tablet 3 10/19/2023 Active Clopidogrel Bisulfate 75 MG Oral Tablet (pLAVix)Indications: PAD (peripheral artery disease) ([facility]) Take 1 Tablet by mouth in the morning. 90 Tablet 3 10/19/2023 Active Apixaban 5 MG Oral Tablet (Eliquis)Indications :Paroxysmal atrial fibrillation ([facility]) Take 1 [...] long-term current use of insulin ([facility]) TAKE ONE TABLET BY MOUTH [...] bedtime. 90 Tablet 3 10/19/2023 Active Nystatin 694432 UNIT/GM External CreamIndications:Can didal diaper dermatitis Apply topically to affected area 2 times a day. To affacted area for two weeks. 30 g 5 10/19/2023 Active Metoprolol Succinate ER 50 MG [...] Start day before biopsy. 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 [...] as of this encounter (statuses as of 12/08/2023) Immunizations Name Administration Dates Next Due COVID-19 mRNA, LNP-s, No Pre serve, 2-Dose Series ([employer]) 06/17/2021,11/14/2020,10/24/2020 Covid-19, Mrna, Lnp-s, Pf, B ivalent, 30 Mcg, IM, 12 yrs and above ([employer]) 10/01/2022 Pneumococcal Conjugate Vacc, 13 Valent (Prevnar) [...] Care Team (Late st Contact Info) Description 12/22/2023 2:10 PM EDT Office Visit [facility] [address] Shaun Herr MD [address] [place] [address] 03/07/2024 11:00 AM EDT Office Visit Family Medicine [address] [phone] Sandra Goldstein MD [address] [place] [address] [place] [address] 04/07/2024 8:15 AM EDT Office Visit [facility] Surgery [facility] [address] [place] [address] Mary Jane Cordova MD [address] [facility] [place] [address] 04/19/2024 9:00 AM EDT Office Visit Urology, [facility] 132 [facility] [place] [address] Regan Alejandro MD [address] [facility] [address] [place] [address] 05/02/2024 2:45 PM EDT Office Visit Urology, [facility] [address] [facility] [place] [address] Regan Alejandro MD 27 [facility] [place] [address] [place] [address] 10/24/2024 10:30 AM EST Nurse Only Ancillary [place] [address] [place] [address] [place], Nurse Annual [address] [place] [address] Pending Results Name Type Priority Associated Diagnoses Date /Time XR FOOT 3 OR MORE VIEWS Medical Imaging Routine Right foot pain 12/08/2023 12:56 PM EDT Health Maintenance Due Date Last Done Comments COVID-19 Vaccine ( season) 2023 10/01/2022, 06/17/2021, 11/14/2020, Additional history exists Diabetic Foot Exam 04/21/2024 04/21/2023, 1 , 05/28/2020, Additional history exists GFR 05/10/2024 11/08/2023, 100 02/2023, 03/19/2023, Additional history exists HbA1c 05/10/2024 11/08/2023, 100 02/2023, 10/01/2022, Additional history exists CKD HGB USE SMARTSET 83595 05/29/202405/29, 03/19/2023, 03/19/2023, Additional history exists CKD PHOS USE SMARTSET 55015 05/29/2024 100 02/2023, 10/01/2022, 12/04/2020, Additional history exists Diabetic Eye Exam 06/15/2024 06/15/2023, , 04/21/2023, Additional history exists TSH 07/01/2024 07/01/2023, 100 02/2023, 03/19/2023, Additional history exists Depression Screening [...] this encounter Medical Devices Implanted Type Area Field Technical Assistant Device Identifier Shelf Expiration Date Model / Serial / Lot Sut Steel 6 M654g - [id number] Implanted:Qty: 4 on 10/21/2015 [place] [facility] [place] Chest JNJ : [employer] 07/22/2020 M654G / / [id number] Marker Coronary Amgm-Sd - [id number] Implanted:Qty: 1 on 10/21/2015 by Riki Chan [place] [facility] [place]A: Chest [employer] 08/22/2018 AMGM-SD / / [id number] Marker Coronary Amgm-Sd - [id number] Implanted:Qty: 1 on 10/21/2015 by Riki Chan MD [place] [facility] [place] Chest [employer] 06/22/2018 AMGM-SD / / [id number] documented as of this encounter Visit Diagnoses Diagnosis Right foot pain- Primary Pain in limb documented in this encounter Advance Directives Latest Code Status on File Code Status Date Activated Date Inactivated Comments No Code 11/05/2015 1:17 AM 11/07/2015 7:12 PM This order reflects the patients wishes and were consensually agreed upon. Question Answer Comments Discussion of Advance Directives occurred with: Patient Does the patient have a Living Will? No Does the patient have Health Care Power of Pipeline Gang Supervisor? No Code Status History Code Status Date Activated Date Inactivated Comments Full Code 10/21/2015 11:12 AM 10/26/2015 4:45 PM This order reflects the patients wishes and were consensually agreed upon. Care Teams Bryologist Relationship Specialty Start Date End Date Sandra Goldstein MD [address] [place] [address] [place] [address] PCP - General Family Medicine 02/22/19 documented as of this encounter
--- OUTSIDE RECORDS SUMMARY | 2024-05-13 11:43 | External Medical Summary | Summary of Care ---
Author Name Unknown Organization [facility] Address [address] [facility] [place] [address] Phone [phone] Care Team Providers Care Direct Response Consultant Name Role Phone Sandra Goldstein MD Primary Care Prov ider Reason for Visit * Reason Onset Date Comments Test Results 11/09/2023 Encounter Details Date Type Department Care Team (Late st Contact Info) Description 11/09/2023 Telephone Cardiology, [facility] [address] [place] [address] Luiz Pina PA-C [address] [place] [address] Test Results Allergies Active Allergy Reactions Criticality Noted Date Comments Lisinopril Cough Low 12/21/2012 documented as of this encounter (statuses as of 11/17/2023) Medications Medication Sig Dispensed Refills Start Date [...] hemoglobin A1c goal of less than 8.0% ([facility]),Coronary artery disease involving [place] coronary artery of [place] heart without angina pectoris Take 1 Tablet by mouth in the morning. 90 Tablet 3 10/19/2023 Active Clopidogrel Bisulfate 75 MG Oral Tablet (pLAVix)Indications: PAD (peripheral artery disease) ([facility]) Take 1 Tablet by mouth in the morning. 90 Tablet 3 10/19/2023 Active Apixaban 5 MG Oral Tablet (Eliquis)Indications :Paroxysmal atrial fibrillation ([facility]) Take 1 Tablet by mouth in the [...] disease, without long-term current use of insulin ([facility]) TAKE ONE TABLET BY MOUTH EVERY DAY [...] bedtime. 90 Tablet 3 10/19/2023 Active Nystatin 540484 UNIT/GM External CreamIndications:Can didal diaper dermatitis Apply [...] as of this encounter (statuses as of 11/17/2023) Active Problems Problem Noted Date Diagnosed Date [...] as of this encounter (statuses as of 11/17/2023) Resolved Problems Problem Noted Date Diagnosed Date [...] CHF 05/26/2019 05/22/2022 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 sustainability purchasing agent 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 [...] as of this encounter (statuses as of 11/17/2023) Immunizations Name Administration Dates Next Due COVID-19 mRNA, LNP-s, No Pre serve, 2-Dose Series (X2TV) 06/17/2021,11/14/2020,10/24/2020 Covid-19, Mrna, Lnp-s, Pf, B ivalent, 30 Mcg, IM, 12 yrs and above (X2TV) 10/01/2022 Pneumococcal Conjugate Vacc, 13 Valent (Prevnar) [...] encounter Miscellaneous Notes * Telephone Encounter - Kaylan Schrader CMA - 11/17/2023 11:18 AM EDT Letter mailed. * Telephone Encounter - Kaylan Schrader CMA - 11/09/2023 4:19 PM EDT My g sent. * Telephone Encounter - Kaylan Schrader CMA - 11/09/2023 4:17 PM EDT ----- Message from Luiz Pina PA-C sent at 11/09/2023 4:09 PM EDT ----- Stable documented in this encounter Plan of Treatment Upcoming Encounters Date Type Department Care Team (Late st Contact Info) Description 11/24/2023 12:50 PM EDT Office Visit Vascular Surgery, [facility] [address] [facility] [place] [address] Shuan Herr MD [address] [facility] [place] [phone] 03/07/2024 11:00 AM EDT Office Visit Family Medicine [address] [place] [phone] Sandra Goldstein MD [address] [place] [address] [place] [address] 04/07/2024 8:15 AM EDT Office Visit [facility] Surgery [facility] [address] [facility] [place] [address] Mary Jane Cordova MD [address] [place] [address] [place] [address] 04/19/2024 9:00 AM EDT Office Visit Urology, [facility] [address] [place] [address] Regan Alejandro MD [address] [place] [address] 05/02/2024 2:45 PM EDT Office Visit Urology, [facility] [address] [place] [address] Regan Alejandro MD [address] [facility] [place] [address] 10/24/2024 10:30 AM EST Nurse Only Ancillary [address] [place] [address] [place], Nurse Annual [facility]ness [address] [place] [address] [place] [address] Health Maintenance Due Date Last Done Comments COVID-19 Vaccine (2022- season) 2023 10/01/2022, 06/17/2021, 11/14/2020, Additional history exists Diabetic Foot Exam 04/21/2024 04/21/2023, 1 , 05/28/2020, Additional history exists GFR 05/10/2024 11/08/2023, 0 02/2023, 03/19/2023, Additional history exists HbA1c 05/10/2024 11/08/2023, 02/2023, 10/01/2022, Additional history exists CKD HGB USE SMARTSET 78471 05/29/202405/29, 03/19/2023, 03/19/2023, Additional history exists CKD PHOS USE SMARTSET 60960 05/29/202402/2023, 10/01/2022, 12/04/2020, Additional history exists Diabetic Eye Exam 06/15/2024 06/15/2023, , 04/21/2023, Additional history exists TSH 07/01/2024 07/01/2023, 02/2023, 03/19/2023, Additional history exists Depression Screening [...] this encounter Medical Devices Implanted Type Area Director Of Revenue Cycle Management Device Identifier Shelf Expiration Date Model / Serial / Lot Sut Craig 6 M654g - [id number] Implanted:Qty: 4 on 10/21/2015 by Riki Chan MD [place] [facility] [place]A: Chest JNJ : [employer] 07/22/2020 M654G / / [id number] Marker Coronary Amgm-Sd - [id number] Implanted:Qty: 1 on 10/21/2015 by Riki Chan MD at [place] [facility] [place]/A: Chest [employer] 08/22/2018 AMGM-SD / / [id number] Marker Coronary Amgm-Sd - [id number] Implanted:Qty: 1 on 10/21/2015 by Riki Chan MD at [place] [facility] [place] Chest [employer] 06/22/2018 AMGM-SD / / [id number] documented as of this encounter Advance Directives Latest Code Status on File Code Status Date Activated Date Inactivated Comments No Code 11/05/2015 1:17 AM 11/07/2015 7:12 PM This order reflects the patients wishes and were consensually agreed upon. Question Answer Comments Discussion of Advance Directives occurred with: Patient Does the patient have a Living Will? No Does the patient have Health Care Power of Aegis Operations Specialist? No Code Status History Code Status Date Activated Date Inactivated Comments Full Code 10/21/2015 11:12 AM 10/26/2015 4:45 PM This order reflects the patients wishes and were consensually agreed upon. Care Teams Direct Response Consultant Relationship Specialty Start Date End Date Sandra Goldstein MD [address] [place] [address] [place] [phone] PCP - General Family Medicine 02/22/19 documented as of this encounter
--- OUTSIDE RECORDS SUMMARY | 2024-05-13 11:43 | External Medical Summary | Summary of Care ---
Author Name Unknown Organization [facility] Address [address] [facility] [place] [address] Phone [phone] Care Team Providers Care Boxing Instructor Name Role Phone Sandra Goldstein MD Primary Care Prov ider Reason for Visit * Reason Onset Date Comments Test Results 12/13/2023 Encounter Details Date Type Department Care Team (Late st Contact Info) Description 12/13/2023 Telephone [facility] [address] [place] [address] Sandra Goldstein MD [address] [place] [address] [place] [address] Test Results Allergies Active Allergy Reactions Criticality Noted Date Comments Lisinopril Cough Low 12/21/2012 documented as of this encounter (statuses as of 12/21/2023) Medications Medication Sig Dispensed Refills Start Date [...] of less than 8.0% ([facility]),Coronary artery disease involving [place] coronary artery of [place] heart without angina pectoris Take 1 Tablet by mouth in the morning. 90 Tablet 3 10/19/2023 Active Clopidogrel Bisulfate 75 MG Oral Tablet (pLAVix)Indications: PAD (peripheral artery disease) ([facility]) Take 1 Tablet by mouth in the morning. 90 Tablet 3 10/19/2023 Active Apixaban 5 MG Oral Tablet (Eliquis)Indications :Paroxysmal atrial fibrillation ([facility]) Take 1 Tablet by mouth in [...] current use of insulin ([facility]) TAKE ONE TABLET BY MOUTH EVERY [...] bedtime. 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 * Telephone Encounter - Sandra Goldstein MD - 12/17/2023 9:44 AM EDT OK. I recommend he follow up with Dr Streeter about his foot pain. Orthotics might be beneficial (which he would get through podiatry) * Telephone Encounter - Sonia Antoine LPN - 12/16/2023 4:30 PM EDT Pt aware of note below His Podiatry Doctor is Dr. Streeter in [facility] He states he has Acute Right foot pain. He can walk on the foot , but does cause pain after standing or walking so long He does not take any med's to help control the pain * Telephone Encounter - Sandra Goldstein MD - 12/13/2023 1:57 PM EDT Right foot Xray shows extensive osteoarthritis. Please call to ask how he is doing? Is he still following with Podiatry? I would recommend he follow up with Podiatry. documented in this encounter Plan of Treatment Upcoming Encounters Date Type Department Care Team (Late st Contact Info) Description 12/22/2023 2:10 PM EDT Office Visit Vascular Surgery, [facility] [address] [place] [address] Shaun Herr MD [address] [place] [address] 03/07/2024 11:00 AM EDT Office Visit Family Medicine [address] [phone] Sandra Goldstein MD [address] [place] [address] 04/07/2024 8:15 AM EDT Office Visit [facility] [address] [place] [address] Mary Jane Cordova MD [address] [place] [address] 04/19/2024 9:00 AM EDT Office Visit Urology, [facility] [address] [place] [address] Regan Alejandro MD [address] [place] [address] 05/02/2024 2:45 PM EDT Office Visit Urology, [facility] [address] [facility] [place] [address] Regan Alejandro MD [address] [place] [address] 10/24/2024 10:30 AM EST Nurse Only Ancillary [address] [place] [address] Flip, Nurse [address] [place] [address] Health Maintenance Due Date Last Done Comments COVID-19 Vaccine ( season) 2023 10/01/2022, 06/17/2021, 11/14/2020, Additional history exists Diabetic Foot Exam 04/21/2024 04/21/2023, 1 , 05/28/2020, Additional history exists GFR 05/10/2024 11/08/2023, 100 02/2023, 03/19/2023, Additional history exists HbA1c 05/10/2024 11/08/2023, 0 02/2023, 10/01/2022, Additional history exists CKD HGB USE SMARTSET 88191 05/29/202405/29, 03/19/2023, 03/19/2023, Additional history exists CKD PHOS USE SMARTSET 76031 05/29/20240 02/2023, 10/01/2022, 12/04/2020, Additional history exists Diabetic Eye Exam 06/15/2024 06/15/2023, , 04/21/2023, Additional history exists TSH 07/01/2024 07/01/2023, 0 02/2023, 03/19/2023, Additional history exists Depression Screening 10/20/2024 10/21/2023 B-12 11/07/2024 11/08/2023, 020 04/2023, 12/04/2020, Additional history exists Albumin/Creatinine Ratio 11/08/20242 024, 10/08/2022, 11/30/2017, Additional history exists DTaP,Tdap,and Td Vaccines (3 - Td or Tdap) 03/27/2033 03/27/2023, 03/08/2013 Pneumococcal Vaccine: 65+ Years Completed 08/13/2015, 07/07/2012 Zoster Vaccines Completed 12/02/2021, 1209/2020, 06/06/2020, Additional history exists Influenza Vaccine (FLU [...] this encounter Medical Devices Implanted Type Area Embalmer Apprentice Device Identifier Shelf Expiration Date Model / Serial / Lot Sut Steel 6 M654g - [id number] Implanted:Qty: 4 on 10/21/2015 by Riki Chan MD at [place] [facility] [place] N/A: Chest JNJ : [employer] 07/22/2020 M654G / / [id number] Marker Coronary Amgm-Sd - [id number] Implanted:Qty: 1 on 10/21/2015 by Riki Chan MD at [place] [facility] [place] N/A: Chest [employer] 08/22/2018 AMGM-SD / / [id number] Marker Coronary Amgm-Sd - [id number] Implanted:Qty: 1 on 10/21/2015 by Riki Chan MD at [place] [facility] [place] Chest [employer] 06/22/2018 AMGM-SD / / [id number] documented as of this encounter Advance Directives [...] the patient have Health Care Power of Formwork Carpenter? No Code Status History Code Status Date Activated Date Inactivated Comments Full Code 10/21/2015 11:12 AM 10/26/2015 4:45 PM This order reflects the patients wishes and were consensually agreed upon. Care Teams Boxing Instructor Relationship Specialty Start Date End Date Sandra Goldstein MD [address] [place] [address] [place] [address] PCP - General Family Medicine 02/22/19 documented as of this encounter
--- OUTSIDE RECORDS SUMMARY | 2024-05-13 11:43 | External Medical Summary | Summary of Care ---
Author Name Unknown Organization [facility] Address [address] [place] [address] Phone [phone] Care Team Providers Care News Department Intern Name Role Phone Sandra Goldstein MD Primary Care Prov ider Reason for Visit * Reason Comments NEW PATIENT * Evaluate & Treat - Unlimited Visits (Within 10 days (routine)) - Authorized Specialty Diagnoses / Procedures Referred By Contact Referred To Contact Vascular Surgery / Cardiovascular Surgery Diagnoses PAD (peripheral artery disease) ([facility]) Sandra Goldstein MD [address] [place] [address] [place] [address] Referral ID Status Reason Start Date Expiration Date Visits Requested Visits Authorized [id number] Authorized Specialty Services Required 10/19/[phone] Encounter Details Date Type Department Care Team (Late st Contact Info) Description 12/22/2023 2:10 PM EDT Office Visit Vascular Surgery, [facility] [address] [facility] [place] [address] Shaun Herr MD [address] [place] [address] PAD (peripheral artery disease) ([facility])* Allergies Active Allergy Reactions Criticality Noted Date Comments Lisinopril Cough Low 12/21/2012 documented as of this encounter (statuses as of 12/22/2023) Medications Medication Sig Dispensed Refills Start Date [...] 15 minutes 25 Tablet 0 04/23/2023 Active Vitamin C 500 MG Oral Tablet Chewable Take 1 Tablet by mouth in the morning. 0 Active Multi-Vitamins Oral Tablet Take 1 Tablet by mouth in the morning. 0 Active Atorvastatin Calcium 40 MG Oral Tablet (Lipitor)Indications :Type 2 diabetes mellitus with hemoglobin A1c goal of less than 8.0% (HCC),Coronary artery disease involving [place] coronary artery of [place] heart without angina pectoris Take 1 Tablet [...] bedtime. 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 [...] as of this encounter (statuses as of 12/22/2023) Immunizations Name Administration Dates Next Due COVID-19 mRNA, LNP-s, No Pre serve, 2-Dose Series ([employer] (acquired by [employer] in 2014)) 06/17/2021,11/14/2020,10/24/2020 Covid-19, Mrna, Lnp-s, Pf, B ivalent, [...] Never Smokeless Tobacco: Never Tobacco Cessation:Counseling Given: No Alcohol Use Standard Drinks/Week Comments No 0 [...] Sign Reading Time Taken Comments Blood Pressure 102/58 12/22/2023 2:21 PM EDT Pulse 91 12/22/2023 2:21 PM EDT Temperature 36 C (96.8 F) 12/22/2023 2:21 PM EDT Respiratory Rate - - Oxygen Saturation - - Inhaled Oxygen Concentration - - Weight 90.7 kg (200 lb) 12/22/2023 2:21 PM EDT p er patient Height - - Body Mass Index 30.41 10/21/2023 10:30 AM EST documented in this [...] Progress Notes * Regis Gaspar PA-C - 12/22/2023 2:10 PM EDT Images from the original note were not included. Date of Service: 12/22/2023 2:32 PM Earl Garcia is a 83 year old male. Patient being seen in consultation at the request of Sandra Judge MD Chief Complaint: New pt, chronic foot wounds, assess for PAD HPI: Never smoker with BHUPINDER, Dyslipidemia, Gout, DM, UE DVT, HTN, CAD (s/p CABG 2015, Dr. Chan), HFrEF (LVEF 30-35%), Parox AFib, CKD III, sustained VR (s/p ICD insertion, Moderate Aortic & Mitral Valve Regurg, S/P B/L shoulder replacements and PVD who has been followed by Dr. Laboy [facility]. A 11/21/21 RLE angio had the following findings: Right lower extremity with mild diffuse SFA/popliteal disease, 100% ostial PEDRO occlusion, 100% distal TPT occlusion, distal PEDRO reconstitutes at level of ankle without significant disease. Small LOGISTICS TECHNICIAN reconstitutes at ankle. DPA is widely patent [...] Reported on 10/19/2023) 60 g 2 Nystatin 160670 UNIT/GM External Cream Apply topically to affected area 2 times a day. To affacted area for two weeks. (Patient not taking: Reported on 12/22/2023) 30 g 5 Current Facility-Administered Medications Medication Dose Route Frequency Provider Last Rate Last Admin Nystatin (Nystop) powder Topical BID(AM/PM) Sandra Goldstein MD Review of patient's allergies indicates: Allergen Reactions Lisinopril Cough Patient Active Problem List Diagnosis Code History of myocardial infarction I25.2 Type 2 diabetes mellitus with hemoglobin A1c goal of less than 8.0% (HCC) E11.9 Dyslipidemia, goal LDL below 70 E78.5 HTN, goal below 150/90 I10 Gout M10.9 Coronary artery disease I25.10 Vitamin D deficiency E55.9 BHUPINDER (obstructive sleep apnea) G47.33 S/P CABG x 3 Z95.1 Dysarthria R47.1 History of cardioembolic cerebrovascular accident (CVA) Z86.73 Paroxysmal atrial fibrillation (HCC) I48.0 AK (actinic keratosis) L57.0 Vertebral artery stenosis, left I65.02 History of colon polyps Z86.010 Ventricular tachycardia (HCC) I47.20 AICD (automatic cardioverter/defibrillator) present Z95.810 CSA (central sleep apnea) G47.31 Ischemic cardiomyopathy I25.5 Atrial septal aneurysm I25.3 Nocturnal hypoxemia G47.34 Hypothyroidism, unspecified E03.9 Urinary urgency R39.15 Dermatitis L30.9 Type 2 diabetes mellitus with diabetic neuropathy, unspecified ([facility]) E11.40 Chronic kidney disease, stage 3b (HCC) N18.32 Hypertensive heart disease with systolic heart failure and stage 3b chronic kidney disease (HCC) I13.0, I50.20, N18.32 Systolic congestive heart failure (HCC) I50.20 Type 2 diabetes mellitus with diabetic peripheral angiopathy without gangrene (HCC) E11.51 Peripheral vascular disease ([facility]) I73.9 Scrotal swelling N50.89 Tinea cruris B35.6 Type 2 diabetes mellitus with stage 3b chronic kidney disease, without long-term current use of insulin ([facility]) E11.22, N18.32 Yeast dermatitis B37.2 Hypothyroidism due to acquired atrophy of thyroid E03.4 Elevated PSA R97.20 Past Medical History: Diagnosis Date Arm DVT (deep venous thromboembolism), acute, left ([facility]) 11/30/2017 Calculus of kidney x3 Certain sequelae [...] Procedure Laterality Date ARTHROPLASTY KNEE TOTAL 2004 Right--[place] CABG, ARTERIAL, SINGLE N/A 10/21/2015 CORONARY ARTERY BYPASS GRAFT USING ARTERY 1 GRAFT performed by Riki Chan MD at [place] [facility] CABG, ARTERY-VEIN, TWO 10/21/2015 CORONARY ARTERY BYPASS GRAFT ARTERIAL AND VENOUS 2 GRAFTS performed by Riki Chan MD at [facility] COLONOSCOPY 11/18/2012 tubulovillous adenoma x 2--repeat 3 yrs; Dr. Brittaney OGDEN,VIDEO ASSIST HARVEST PENELOPE 10/21/2015 ENDOSCOPY VIDEO ASSISTED HARVEST VEIN performed by Riki Chan MD at [place] [facility] [place] REPAIR ENTROPION: EXTENSIVE(EG,TARSAL STRIP OR CAPSULOPALPEBRAL FASCIA REPAIRS OPERATION) Left 10/20/2023 Dr. Paez-Lateral tarsal strip LLL RECONSTRUCT/REPLACE SHOULDER JOINT 2009 Right--[facility]--[place] RECONSTRUCT/REPLACE SHOULDER JOINT Left 11/2016 Dr. Chatterjee REMOVAL OF KIDNEY STONE, UP TO 2CM X 2, Lithotripsy REPAIR INITIAL INGUINAL HERNIA REDUCIBLE AGE 5 OR MORE 1952 VASC DUPLEX VENOUS UE UNILAT Left 01/07/2017 no DVT Family History Problem Relation Age of Onset Diabetes Mother Lived to be 94 Heart Disorder Mother CHF Alcohol and Other Disorders Associated Father MVA at 58-59 Heart Disorder Brother [place] Gastro-intestinal disorder Sister Crohn's Heart Disorder Son in [facility] at 47, [place] Gastro-intestinal disorder Daughter Crohn's Social History Socioeconomic History Marital status: Single Spouse name: Not on file Number of children: Not on file Years of education: Not on file Highest education level: Not on file Occupational History Not on file Tobacco Use Smoking status: Never Smokeless tobacco: Never Vaping Use Vaping Use: Never used Substance and Sexual Activity Alcohol use: No Drug use: No Sexual activity: Not Currently Other Topics Concern Not on file 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 History 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 Social Determinants of Health Financial Resource Strain: Not on file Food Insecurity: No Food Insecurity (10/01/2023) Hunger Vital Sign Worried About Running Out of Food in the Last Year: Never true Ran Out of Food in the Last Year: Never true Transportation Needs: Not on file Physical Activity: Not on file Stress: Not on file Social Connections: Not on file Intimate Partner Violence: Not on file Housing Stability: Not on file COMPLETE REVIEW OF SYSTEMS: Cardiovascular: Negative for chest pain, shortness of breath, palpitations, angina or AL Neurological: Negative for stroke, TIA, amaurosis fugax All other systems negative except for those noted above and in the history of present illness (HPI). GENERAL MULTI-SYSTEM PHYSICAL EXAM: VITAL SIGNS: BP 102/58 (BP Site: Left Arm, BP Position: Sitting, BP Cuff Size: Regular) | Pulse 91 | Temp 36 C(96.8 F) (Tympanic) | Wt 90.7 kg (200 lb) Comment: per patient | BMI 30.41 kg/m | BSA 2.09 m GENERAL MULTI-SYSTEM PHYSICAL EXAM:GENERAL: Normal grooming [...] no induration, capillary refill normal, no dependent rubor, and ulcers present tiny blood blister right medial toe. BLE venous stasis changes with hemosiderin deposition and dry/flaky skin, see PHOTOs PSYCHIATRIC: orientation to time, place and person normal and recent and remote memory normal. EYES: conjunctivae normal, eye lids normal, pupils normal, and irises normal. NEUROLOGIC: Cranial nerves intact, Motor function intact, and Sensory exam intact BLE legs/feet 12/22/2023 Right medial great toe [...] B/L nonobstructive calcified plaque of carotid bifurcations The above vascular lab and CT scan images were directly visualized and independently interpreted byme on 12/22/2023 with results as above. LABS: Lab Results Component Value Date/Time CREATININE - [facility] 1.7 (H) 11/08/2023 11:35 AM CREATININE - [facility] 1.5 (H) 03/19/2023 11:58 AM CREATININE - [facility] 1.6 (H) 10/01/2022 10:33 AM CREATININE - [facility] 1.4 (H) 10/05/2019 [...] 09:18 AM LDL CHOLESTEROL (DIRECT MEASURE) [facility] 67 10/01/2022 10:33 AM LDL CHOLESTEROL (DIRECT MEASURE) - [facility] NOT APPLICABLE 06/04/2017 09:18 AM LDL CHOLESTEROL (DIRECT MEASURE) - [facility] 63 07/07/2012 09:30 AM Lab Results Component Value Date/Time HEMOGLOBIN A1C - [facility] 5.5 11/08/2023 11:35 AM HEMOGLOBIN A1C - [facility] 7.6 (H) 11/28/2019 09:50 AM The above clinical labs were reviewed by me on 12/22/2023. IMPRESSIONS: Mild RLE PAD w/ H/O ulcers, nothing current No claudication or rest pains Dr. Laboy, on 11/21/21, did a RLE angio which had the following findings: Right lower extremity with mild diffuse SFA/popliteal disease, 100% ostial PEDRO occlusion, 100% distal TPT occlusion, distal PEDRO reconstitutes at level of ankle without significant disease. Small LOGISTICS TECHNICIAN reconstitutes at ankle. DPA is widely patent to forefoot. Unsuccessful antegrade and retrograde attempts made at right tibial intervention BLE venous insuff w/ stasis Never smoker BHUPINDER Dyslipidemia Gout DM UE DVT, following shoulder surgery HTN CAD (s/p CABG 2015, Dr. Chan) HFrEF (LVEF 30-35%) Parox AFib CKD III, sustained VR (s/p ICD insertion Moderate Aortic & Mitral Valve Regurg S/P [...] dyslipidemia/hyperlipidemia & pleiotropic benefits of statins RTC 1yr, ENRIQUE The patient was seen and examined with MD Regis Donahue PA-C Section of Vascular and Endovascular [place] [address] [phone] I have reviewed the advanced practitioner's documentation on the date of service referenced in note, and I agree with, and take responsibility for the plan of care. No claudication or right leg wounds Does have depressed waveforms right tibial arteries but has good toe PPGs and pressures despite findings on previous angiogram at OSH Recommend compression for venous disease Y[place]hey intervention for symptomatic disease Follow up one year with ENRIQUE, sooner PRN Shaun Herr MD Section of Vascular and Endovascular [place] [address] [phone] documented in this encounter Nursing Notes * Olinda Silva PHARM Tech - 12/22/2023 2:22 PM EDT Patient stated no change in medications. FRANCISCO Ramirez documented in this encounter Plan of Treatment Upcoming Encounters Date Type Department Care Team (Late st Contact Info) Description 03/07/2024 11:00 AM EDT Office Visit Family Medicine [address] [phone] Sandra Goldstein MD [address] [place] [address] 04/07/2024 8:15 AM EDT Office Visit [facility] Surgery [facility] [address] [place] [address] Mary Jane Cordova MD [address] [place] [address] 04/19/2024 9:00 AM EDT Office Visit Urology, [facility] [address] [facility] [place] [address] Regan Alejandro MD [address] [facility] [address] [place] [address] 05/02/2024 2:45 PM EDT Office Visit Urology, [facility] [address] [facility] [place] [address] Regan Alejandro MD [address] [place] [address] [place] [address] 10/24/2024 10:30 AM EST Nurse Only Ancillary [address] [place] [address] [place], Nurse [address] [place] [address] Scheduled Orders Name Type Priority Associated Diagnoses Orde r Schedule VASC ANKLE BRACHIAL INDICES WITHOUT PPG (PAD) Medical Imaging Routine PAD (peripheral artery disease) (HCC) Ordered: 12/22/2023 Health Maintenance Due Date Last Done Comments COVID-19 Vaccine ( season) 2023 10/01/2022, 06/17/2021, 11/14/2020, Additional history exists Diabetic Foot Exam 04/21/2024 04/21/2023, 1 , 05/28/2020, Additional history exists GFR 05/10/2024 11/08/2023, 100 02/2023, 03/19/2023, Additional history exists HbA1c 05/10/2024 11/08/2023, 0 02/2023, 10/01/2022, Additional history exists CKD HGB USE SMARTSET 00734 05/29/202405/29, 03/19/2023, 03/19/2023, Additional history exists CKD PHOS USE SMARTSET 61577 05/29/2024 100 02/2023, 10/01/2022, 12/04/2020, Additional history [...] this encounter Medical Devices Implanted Type Area Farmworker Poultry Device Identifier Shelf Expiration Date Model / Serial / Lot Sut Steel 6 M654g - [id number] Implanted:Qty: 4 on 10/21/2015 by Riki Chan MD at [place] [facility] N/A: Chest JNJ : [employer] 07/22/2020 M654G / / [id number] Marker Coronary Amgm-Sd - [id number] Implanted:Qty: 1 on 10/21/2015 by Riki Chan MD at [facility] N/A: Chest [employer] 08/22/2018 AMGM-SD / / [id number] Marker Coronary Amgm-Sd - [id number] Implanted:Qty: 1 on 10/21/2015 by Riki Chan MD at [facility] Chest [employer] 06/22/2018 AMGM-SD / / [id number] documented as of this encounter Visit Diagnoses Diagnosis PAD (peripheral artery disease) (HCC)- Primary Peripheral vascular disease, unspecified documented in this encounter Advance Directives Latest Code Status on File Code Status Date Activated Date Inactivated Comments No Code 11/05/2015 1:17 AM 11/07/2015 7:12 PM This order reflects the patients wishes and were consensually agreed upon. Question Answer Comments Discussion of Advance Directives occurred with: Patient Does the patient have a Living Will? No Does the patient have Health Care Power of Hvac Instructor? No Code Status History Code Status Date Activated Date Inactivated Comments Full Code 10/21/2015 11:12 AM 10/26/2015 4:45 PM This order reflects the patients wishes and were consensually agreed upon. Care Teams News Department Intern Relationship Specialty Start Date End Date Sandra Goldstein MD [address] [place] [address] [place] [address] PCP - General Family Medicine 02/22/19 documented as of this encounter"
--- OUTSIDE RECORDS SUMMARY | 2024-05-13 11:43 | External Medical Summary | Summary of Care ---
Author Name Unknown Organization [facility] Address [address] [facility] [address] Phone [phone] Care Team Providers Care Molasses Coloring Operator Name Role Phone Sandra Goldstein MD Primary Care Prov ider Encounter Details Date Type Department Care Team (Late st Contact Info) Description 01/17/2024 Result Scan Unspecified Department Bri Bray Qiun, DO [address] [facility] [place] [address] <No scans attached> Allergies Active Allergy Reactions Criticality Noted Date Comments Lisinopril Cough Low 12/21/2012 documented as of this encounter (statuses as of 01/17/2024) Medications Medication Sig Dispensed Refills Start Date [...] A1c goal of less than 8.0% ([facility]),Coronary artery disease involving [place] coronary artery of [place] heart without angina pectoris Take 1 Tablet by mouth in the morning. 90 Tablet 10/19/2023 Active Clopidogrel Bisulfate 75 MG Oral Tablet (pLAVix)Indications: PAD (peripheral artery disease) ([facility]) Take 1 Tablet by mouth in the morning. 90 Tablet 10/19/2023 Active Apixaban 5 MG Oral Tablet (Eliquis)Indications :Paroxysmal atrial fibrillation ([facility]) Take 1 Tablet by mouth in the [...] without long-term current use of insulin ([facility]) TAKE ONE TABLET BY MOUTH EVERY DAY with breakfast 90 Tablet 10/19/2023 Active Tamsulosin HCl 0.4 MG Oral Capsule (Flomax)Indications: BPH without obstruction/lower urinary tract symptoms Take one capsule daily 90 Capsule 10/19/2023 Active Losartan Potassium 50 MG Oral Tablet (Cozaar)Indications: HTN, goal below 150/90 Take 1/2 Tablets by mouth in the morning and before bedtime. 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 agent 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 [...] as of this encounter (statuses as of 01/17/2024) Immunizations Name Administration Dates Next Due COVID-19 mRNA, LNP-s, No Pre serve, 2-Dose Series ([employer]) 06/17/2021,11/14/2020,10/24/2020 Covid-19, Mrna, Lnp-s, Pf, B ivalent, [...] 11:00 AM EDT Office Visit Family Medicine [address] [phone] Sandra Goldstein MD [address] [place] [address] [place] [address] 04/07/2024 8:15 AM EDT Office Visit [facility] Surgery [address] [address] Mary Jane Cordova MD [address] [place] [address] 04/19/2024 9:00 AM EDT Office Visit Urology, [facility] [address] [facility] [place] [address] Regan Alejandro MD [address] [place] [address] [place] [address] 05/02/2024 2:45 PM EDT Office Visit Urology, [facility] [address] [facility] [place] [address] Regan Alejandro MD [address] [place] [address] [place] [address] 10/24/2024 10:30 AM EST Nurse Only Ancillary [address] [place] [address] [place], Nurse Annual Wellness [address] [place] [address] [place] [address] Health Maintenance Due Date Last Done Comments COVID-19 Vaccine (2022- season) 2023 10/01/2022, 06/17/2021, 11/14/2020, Additional history exists Diabetic Foot Exam 04/21/2024 04/21/2023, 1 , 05/28/2020, Additional history exists GFR 05/10/2024 11/08/2023, 100 02/2023, 03/19/2023, Additional history exists HbA1c 05/10/2024 11/08/2023, 0 02/2023, 10/01/2022, Additional history exists CKD HGB USE SMARTSET 89133 05/29/202405/29, 03/19/2023, 03/19/2023, Additional history exists CKD PHOS USE SMARTSET 25588 05/29/20240 02/2023, 10/01/2022, 12/04/2020, Additional history exists [...] 12/02/2021, 120 09/2020, 06/06/2020, Additional history exists Influenza Vaccine [...] this encounter Medical Devices Implanted Type Area Hospital Librarian Device Identifier Shelf Expiration Date Model / Serial / Lot Sut Steel 6 M654g - [id number] Implanted:Qty: 4 on 10/21/2015 by Riki Chan MD at [place] [facility] N/A: Chest JNJ : [employer] 07/22/2020 M654G / / [id number] Marker Coronary Amgm-Sd - [id number] Implanted:Qty: 1 on 10/21/2015 by Riki Chan MD at [place] [facility] N/A: Chest [employer] 08/22/2018 AMGM-SD / / [id number] Marker Coronary Amgm-Sd - [id number] Implanted:Qty: 1 on 10/21/2015 by Riki Chan MD at [place] [facility] Chest [employer] 06/22/2018 AMGM-SD / / [id number] documented as of this encounter Procedures Procedure Name Priority Date/Time Associated Diagnosis Comments CARDIOLOGY SCANNED RESULT 01/17/2024 documented in this encounter Results * CARDIOLOGY SCANNED RESULT (01/17/2024) 01/17/2024 Bri Bray DO OTHER documented in this encounter Advance Directives * [...] and were consensually agreed upon. Care Teams Molasses Coloring Operator Relationship Specialty Start Date End Date Sandra Goldstein MD [address] [place] [address] [place] [address] PCP - General Family Medicine 02/22/19 documented as of this encounter
--- OUTSIDE RECORDS SUMMARY | 2024-05-13 11:43 | External Medical Summary | Summary of Care ---
Author Name Unknown Organization [facility] Address [address] [facility] [place] [address] Phone [phone] Care Team Providers Care Credit And Collections Representative Name Role Phone Sandra Goldstein MD Primary Care Prov ider Encounter Details Date Type Department Care Team (Late st Contact Info) Description 01/11/2024 Population Health External Data Unspecified Department Allergies Active Allergy Reactions Criticality Noted Date Comments Lisinopril Cough Low 12/21/2012 documented as of this encounter (statuses as of 01/13/2024) Medications Medication Sig Dispensed Refills Start Date [...] [facility]),Coronary artery disease involving [place] coronary artery of [place] heart without angina pectoris Take 1 Tablet by mouth in the morning. 90 Tablet 10/19/2023 Active Clopidogrel Bisulfate 75 MG Oral Tablet (pLAVix)Indications: PAD (peripheral artery disease) ([facility]) Take 1 Tablet by mouth in the morning. 90 Tablet 10/19/2023 Active Apixaban 5 MG Oral Tablet (Eliquis)Indications :Paroxysmal atrial fibrillation ([facility]) Take 1 Tablet by mouth in [...] before bedtime. 90 Tablet 10/19/2023 Active Nystatin 891225 UNIT/GM External CreamIndications:Can didal diaper dermatitis Apply topically to affected area 2 times a day. To affacted area for two weeks. 30 g 10/19/2023 Active Additional Information Patient not taking.Reported on 12/22/2023 Metoprolol Succinate ER 50 MG Oral Tablet Extended Release 24 Hour (toPROL XL)Indications:Parox ysmal atrial fibrillation ([facility]),HTN, goal below 150/90,Chronic ischemic heart disease,VF (ventricular fibrillation) ([facility]) Take 1 Tablet by mouth 2 times [...] as of this encounter (statuses as of 01/13/2024) Active Problems Problem Noted Date Diagnosed Date [...] as of this encounter (statuses as of 01/13/2024) Resolved Problems Problem Noted Date Diagnosed Date [...] CKD protocol Bilateral foot pain 05/28/2020 09/15/19 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 11/27/2019 0 Systolic CHF 05/26/2019 05/22/2022 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 health program manager 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 [...] as of this encounter (statuses as of 01/13/2024) Immunizations Name Administration Dates Next Due COVID-19 mRNA, LNP-s, No Pre serve, 2-Dose Series (Moovly) 06/17/2021,11/14/2020,10/24/2020 Covid-19, Mrna, Lnp-s, Pf, B ivalent, [...] 11:00 AM EDT Office Visit Family Medicine [address] [place] [phone] Sandra Goldstein MD [address] [place] [address] [place] [address] 04/07/2024 8:15 AM EDT Office [place] [facility] [place] [address] [address] Mary Jane Cordova MD [address] [place] [address] 04/19/2024 9:00 AM EDT Office Visit Urology, [facility] [address] [facility] [place] [address] Regan Alejandro MD [address] [place] [address] [place] [address] 05/02/2024 2:45 PM EDT Office Visit Urology, [facility] [address] [facility] [place] [address] Regan Alejandro MD [address] [place] [address] [place] [address] 10/24/2024 10:30 AM EST Nurse Only Ancillary [address] [place] [address] [place], Nurse Annual Wellness [address] [place] [address] [place] [id number] Health Maintenance Due Date Last Done Comments COVID-19 Vaccine ( season) 2023 10/01/2022, 06/17/2021, 11/14/2020, Additional history exists Diabetic Foot Exam 04/21/2024 04/21/2023, 1 , 05/28/2020, Additional history exists GFR 05/10/2024 11/08/2023, 100 02/2023, 03/19/2023, Additional history exists HbA1c 05/10/2024 11/08/2023, 100 02/2023, 10/01/2022, Additional history exists CKD HGB USE SMARTSET 99504 05/29/202405/29, 03/19/2023, 03/19/2023, Additional history exists CKD PHOS USE SMARTSET 92988 05/29/20240 02/2023, 10/01/2022, 12/04/2020, Additional history exists [...] this encounter Medical Devices Implanted Type Area Refurbish Technician Device Identifier Shelf Expiration Date Model / Serial / Lot Sut Steel 6 M654g - [id number] Implanted:Qty: 4 on 10/21/2015 by Riki Chan [place] [facility] [place] Chest JNJ : [employer] 07/22/2020 [id number] / / [id number] Marker Coronary Amgm-Sd - [id number] Implanted:Qty: 1 on 10/21/2015 by Riki Chan MD [place] [facility] [place]: Chest [employer] 08/22/2018 AMGM-SD / / [id number] Marker Coronary Amgm-Sd - [id number] Implanted:Qty: 1 on 10/21/2015 by Riki Chan MD [place] [facility] [place] Chest [employer] 06/22/2018 AMGM-SD / / [id number] documented as of this encounter Advance Directives [...] and were consensually agreed upon. Care Teams Credit And Collections Representative Relationship Specialty Start Date End Date Sandra Goldstein MD [address] [place] [address] [place] [address] PCP - General Family Medicine 02/22/19 documented as of this encounter
--- OUTSIDE RECORDS SUMMARY | 2024-05-13 11:43 | External Medical Summary | Summary of Care ---
Author Name Unknown Organization [facility] Address [address] [facility] [place] [address] Phone [phone] Care Team Providers Care Crusher Assembler Name Role Phone Sandra Goldstein MD Primary Care Prov ider Encounter Details Date Type Department Care Team (Late st Contact Info) Description 02/14/2024 Population Health External Data Unspecified Department Allergies Active Allergy Reactions Criticality Noted Date Comments Lisinopril Cough Low 12/21/2012 documented as of this encounter (statuses as of 02/15/2024) Medications Medication Sig Dispensed Refills Start Date [...] 8.0% ([facility]),Coronary artery disease involving [place] coronary artery of [place] heart without angina pectoris Take 1 Tablet by mouth in the morning. 90 Tablet 10/19/2023 Active Clopidogrel Bisulfate 75 MG Oral Tablet (pLAVix)Indications: PAD (peripheral artery disease) ([facility]) Take 1 Tablet by mouth in the morning. 90 Tablet 10/19/2023 Active Apixaban 5 MG Oral Tablet (Eliquis)Indications :Paroxysmal atrial fibrillation ([facility]) Take 1 Tablet by [...] before bedtime. 90 Tablet 10/19/2023 Active Nystatin 135037 UNIT/GM External CreamIndications:Can didal diaper dermatitis Apply topically to affected area 2 times a day. To affacted area for two weeks. 30 g 10/19/2023 Active Additional Information Patient not taking.Reported on 12/22/2023 Metoprolol Succinate ER 50 MG Oral Tablet Extended Release 24 Hour (toPROL XL)Indications:Parox ysmal atrial fibrillation ([facility]),HTN, goal below 150/90,Chronic ischemic heart disease,VF (ventricular fibrillation) ([facility]) Take 1 Tablet by mouth 2 [...] as of this encounter (statuses as of 02/15/2024) Active Problems Problem Noted Date Diagnosed Date [...] as of this encounter (statuses as of 02/15/2024) Resolved Problems Problem Noted Date Diagnosed Date [...] CHF 05/26/2019 05/22/2022 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 [...] as of this encounter (statuses as of 02/15/2024) Immunizations Name Administration Dates Next Due COVID-19 mRNA, LNP-s, No Pre serve, 2-Dose Series (Osen) 06/17/2021,11/14/2020,10/24/2020 Covid-19, Mrna, Lnp-s, Pf, B ivalent, [...] 11:00 AM EDT Office Visit Family Medicine [address] [place] [phone] Sandra Goldstein MD [address] [place] [address] [place] [address] 04/07/2024 8:15 AM EDT Office [place] [facility] [place] [address] [address] Mary Jane Cordova MD [address] [place] [address] 04/11/2024 9:30 AM EDT Office Visit [facility] [address] [place] [address] Marshall Paez, [address] [place] [address] 04/19/2024 9:00 AM EDT Office Visit Urology, [facility] [address] [facility] [place] [address] Regan Alejandro MD [address] [place] [address] [place] [address] 05/02/2024 2:45 PM EDT Office Visit Urology, [facility] [address] [facility] [place] [address] Regan Alejandro MD [address] [place] [address] [place] [address] 09/12/2024 10:30 AM EST Office Visit Cardiology [address] [place] [address] Luiz Pina PA-C [address] [place] [address] 10/24/2024 10:30 AM EST Nurse Only Ancillary [address] [place] [address] [place], Nurse Annual [address] [place] [address] Health Maintenance Due Date Last Done Comments COVID-19 Vaccine (2022- season) 2023 10/01/2022, 06/17/2021, 11/14/2020, Additional history exists Diabetic Foot Exam 04/21/2024 04/21/2023, 1 , 05/28/2020, Additional history exists GFR 05/10/2024 11/08/2023, 100 02/2023, 03/19/2023, Additional history exists HbA1c 05/10/2024 11/08/2023, 100 02/2023, 10/01/2022, Additional history exists CKD HGB USE SMARTSET 86432 05/29/202405/29, 03/19/2023, 03/19/2023, Additional history exists CKD PHOS USE SMARTSET 74265 05/29/20240 02/2023, 10/01/2022, 12/04/2020, Additional history exists [...] this encounter Medical Devices Implanted Type Area Tester Regulator Device Identifier Shelf Expiration Date Model / Serial / Lot Sut Steel 6 M654g - [id number] Implanted:Qty: 4 on 10/21/2015 by Riki Chan MD [place] [facility] [place] [facility] [place]: Chest JNJ : [employer] 07/22/2020 M654G / / [id number] Marker Coronary Amgm-Sd - [id number] Implanted:Qty: 1 on 10/21/2015 by Riki Chan MD [place] [facility] [facility] [place]A: Chest [employer] 08/22/2018 AMGM-SD / / [id number] Marker Coronary Amgm-Sd - [id number] Implanted:Qty: 1 on 10/21/2015 by Riki Chan MD at [place] [facility] [facility] [place] Chest [employer] 06/22/2018 AMGM-SD / / [id number] documented as of this encounter Advance Directives [...] and were consensually agreed upon. Care Teams Crusher Assembler Relationship Specialty Start Date End Date Sandra Goldstein MD [address] [place] [address] [place] [address] PCP - General Family Medicine 02/22/19 documented as of this encounter
--- NOTE | 2024-05-13 12:04 | Emergency Department Note ---
Impression & Plan Incarcerated umbilical hernia, Small bowel obstruction, Aspiration pneumonia of left lower lobe, Elevated lactic acid level ED Provider Note Name: Earl ZACARIAS Age: 83 Sex: Male Arrives Via: Walk-In Informant: Patient, son in law ED Provider: Ochoa Kessler MD Chief Complaint: Illness Impression: As per impressions above Medical Decision Makin-year-old gentleman with a history of stroke, hypertension, BHUPINDER, type 2 diabetes, ischemic cardiomyopathy, A-fib arrives for evaluation of intractable vomiting for the last week. Associate with no bowel movement. Patient does have a firm umbilical hernia on examination which initially is on reducible CT of the pelvis was obtained which reveals significant small bowel obstruction secondary to incarcerated umbilical hernia. During this laboratory workup was obtained which does show a moderately elevated white blood cell count and lactic acid. There is evidence of a left lower lobe pneumonia as well. Blood cultures were obtained he was given empiric IV Unasyn for management. Patient was ordered NG tube while also awaiting general surgery. They were down to evaluate patient shortly thereafter and actually were able to reduce the obstruction. Patient had improvement in symptoms and then had multiple very large bowel movements. Due to no further nausea held off on placing NG tube and will conservatively monitor in hospital. Patient technically meets sepsis criteria however he is afebrile and I suspect lactate is more due to some dehydration rather than true severe sepsis. I do not feel he is severe sepsis at this time. Hospitalist consulted for further management. Triage/Nursing Notes reviewed by Me Differential:Gastroenteritis, food borne illness, infections, appendicitis, diverticulitis, inflammatory bowel disease, obstruction, GI bleed, biliary pathology, volvulus, as well as other pathologies. Vital Signs: reviewed and remarkable for no significant abnormalities Interventions: Normal saline bolus 1 L IV, Unasyn 3 g IV, Zofran IV Labs:ED labs Reviewed by me and remarkable for elevated lactic acid, elevated white blood cell count Imaging:CT of the abdomen pelvis without contrast reveals high-grade small bowel obstruction as per my informal interpretation consistent with source being incarcerated umbilical hernia. Radiologist agree. 1 view chest x-ray as per my interpretation reveals a left lower lobe infiltrate. EKG:Sinus with first-degree AV block at 70 bpm QTc of 488. Intra ventricular block and QRS widening noted. Compared to EKG from 03/14/2024 similar pathology though widening QRS. No ischemia appreciated Cardiac/Tele Monitoring: Cardiac Monitoring: An Order was placed for continuous cardiac monitoring. The monitor shows a rate of 70 with a normal sinus rhythm. Consults:I did consult and discussed with Dr. Alejandro of general surgery emergently for evaluation of patient. He reduce the hernia at bedside and agrees with monitoring closely over the next few days in the hospital. I discussed the case with [facility] hospitalist for further management. Plan: Disposition:Hospitalization. Condition: Fair History of Present Illness: 83-year-old male arrives for evaluation of vomiting. Patient with 1 week of recurrent vomiting. States it comes in waves. Does get worse with eating. Notes he has not been eating as much due to the vomiting. He has associated difficulty with bowel movements and has not had a bowel movement in several days. Denies any severe pain, fevers, chills, back pain. Does note that he feels like he cannot take a deeper breath the last few days due to his increasing abdominal size. Notes chronic swelling and scabbing of his legs unchanged. Denies any history of previous abdominal issues like this. He was seen by his PCP who did a KUB which was unremarkable. Patient has extensive other past medical history as well. He has never had any surgery on his abdomen Past Medical History:See Below Home Medications:See Below Allergies:lisinopril Vitals:Blood Pressure: 128/66, Pulse 87, RR 18, T 36.3C, O2 96% on RA Physical Exam: GENERAL: Patient is tired appearing and in minimal distress. Mildly dry mucous membranes RESPIRATORY: No dyspnea. Clear to auscultation and equal bilaterally. CARDIOVASCULAR: Regular rate and rhythm.No murmur appreciated. GASTROINTESTINAL: Moderately distended hypoactive bowel sounds without tenderness to palpation. Nonreducible umbilical hernia with moderate tenderness palpation. BACK: No midline tenderness, no CVA tenderness EXTREMITIES: Normal motion all extremities, no cyanosis, no edema. NEUROLOGIC: Alert and oriented. No focal neurologic deficits appreciated SKIN: No rash, no jaundice, no diaphoresis. PSYCH: Appropriate GCS: 15 ED Course: Times/Reassessments: Multiple repeat evaluation. Post reduction of hernia patient vastly improved and had several large bowel movements. Critical Care: I have personally spent 35 minutes of critical care time in the direct management of this patient. Incarcerated umbilical hernia causing small bowel obstruction and emergent consult with general surgery for possible OR versus bedside management. This was a life/limb threatening event. This 35 minutes is in excess of all separately billable procedures. Ochoa Kessler MD Past Med/Surg History Problem List Elevated lactic acid level (Acute) Aspiration pneumonia of left lower lobe (Acute) Small bowel obstruction (Acute) Incarcerated umbilical hernia (Acute) Small bowel obstruction Incarcerated umbilical hernia Elevated prostate specific antigen (PSA) Stroke-like symptoms (Acute) VENITA (acute kidney injury) (Acute) Hypomagnesemia (Acute) Transient vision disturbance of both eyes Peripheral arterial disease Urinary symptom or sign Ventricular tachycardia (Acute) Defibrillator discharge (Acute) History of left shoulder replacement (Chronic) Ischemic cardiomyopathy (Chronic) "prior EF 35-40% in August 2008; improved EF 50-54% on 11/24/16 echo" Paroxysmal atrial fibrillation (Chronic) "postoperative" History of cardioembolic stroke (Chronic) Mitral regurgitation (Chronic) HTN (hypertension) (Chronic) Dyslipidemia (Chronic) DM type 2 (diabetes mellitus, type 2) (Chronic) BHUPINDER (obstructive sleep apnea) (Chronic) "not on CPAP" PFO (patent foramen ovale) (Chronic) Atrial septal aneurysm (Chronic) Gout (Chronic) 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) Chronic anticoagulation (Chronic) 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) "2004 " History of right shoulder replacement (Chronic) "2009" H/O lithotripsy (Chronic) History of inguinal hernia repair (Chronic) "1954" Medical History 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 Phlebitis/thrombophlebitis Surgical History AICD present, double chamber Family History Brother V-tach required AICD Social History Smoking Status: Never smoker Do You Dip or Chew Tobacco: No; Hx Alcohol Use: No Hx Substance Use: No Preferred Language: German Communication Ability: Effective Dye 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 Helper Required: No Beliefs That Will Affect Care: None marital status: Single Current Living Situation: Alone Current Living Situation Comment: home alone, daughter lives 12 miles away current occupational status: retired Other Information That Helps Us Care for You: No Feels Safe at Home: Yes Safety Concerns: Feels Safe At This Time Assistive Devices: None Allergies Allergies Allergy/AdvReac Type Severity Reaction Status Date / Time lisinopril AdvReac Mild COUGHING Verified 12/09/21 14:12 Home Meds Home Medications Medication Instructions Recorded Confirmed amiodarone 200 mg tablet 200 mg PO DAILY 03/11/23 05/13/24 cholecalciferol (vitamin D3) 50 50 mcg PO DAILY 03/11/23 05/13/24 mcg (2,000 unit) capsule (Vitamin D3) furosemide 20 mg tablet 40 mg PO DAILY 03/11/23 05/13/24 losartan 50 mg tablet 25 mg PO BID 03/11/23 05/13/24 potassium chloride 10 mEq 10 meq PO DAILY 03/11/23 05/13/24 capsule,extended release apixaban 2.5 mg tablet 2.5 mg PO BID 05/13/24 05/13/24 bicalutamide 50 mg tablet (Casodex) 50 mg PO DAILY 05/13/24 05/13/24 clopidogrel 75 mg tablet 75 mg PO QAM 05/13/24 05/13/24 erythromycin 5 mg/gram (0.5 %) eye 0.25 inch ophthalmic (eye) QID 05/13/24 05/13/24 ointment levothyroxine 112 mcg tablet 112 mcg PO DAILY 05/13/24 05/13/24 metoprolol succinate 50 mg 50 mg PO BID 05/13/24 05/13/24 tablet,extended release 24 hr Previous Rx's Medication Instructions Recorded tamsulosin 0.4 mg capsule 0.4 mg PO DAILY #90 caps 07/29/23 Results & Data (ED) Vital Signs Vital Signs - 24 hr 05/13/24 11:37 05/13/24 12:21 05/13/24 12:48 Temperature 36.3 C L Temperature Source Temporal Artery Scan Pulse Rate 87 71 71 Pulse Rate from SpO2 Sensor 71 69 Respiratory Rate 18 20 21 Blood Pressure 128/66 Blood Pressure Mean 86 Pulse Oximetry 96 92 94 Oxygen Delivery Method Room Air Sepsis Recent Fever Within 48 Hours No Sepsis New/Unexplained Change in Mental Status No Sepsis Action Taken by Nursing No Action Required 05/13/24 13:03 05/13/24 13:30 05/13/24 14:06 Temperature Temperature Source Pulse Rate 65 69 70 Pulse Rate from SpO2 Sensor 60 70 70 Respiratory Rate 21 17 Blood Pressure Blood Pressure Mean Pulse Oximetry 94 94 95 Oxygen Delivery Method Sepsis Recent Fever Within 48 Hours Sepsis New/Unexplained Change in Mental Status Sepsis Action Taken by Nursing 05/13/24 14:45 Temperature Temperature Source Pulse Rate 61 Pulse Rate from SpO2 Sensor 63 Respiratory Rate 24 Blood Pressure Blood Pressure Mean Pulse Oximetry 95 Oxygen Delivery Method Sepsis Recent Fever Within 48 Hours Sepsis New/Unexplained Change in Mental Status Sepsis Action Taken by Nursing Laboratory Data 05/14/24 07:48 05/14/24 07:48 Lab Results 05/13/24 05/13/24 05/13/24 Range/Units 12:10 13:10 14:05 WBC 16.00 H (4.8-10.8) K/ul RBC 5.13 (4.70-6.10) M/uL Hgb 12.5 L (14.0-18.0) g/dl Hct 40.8 L (42.0-52.0) % MCV 79.5 L (80.0-100.0) fL MCH 24.4 L (25.0-34.0) pg MCHC 30.6 L (32.0-36.0) g/dL RDW Std Deviation 58.4 H (36.4-46.3) fL RDW Coeff of Perez 21.6 H (11.5-14.5) % Plt Count 254 (130-400) K/uL MPV 9.6 (9.4-12.4) fL Immature Gran % (Auto) 0.4 % Neut % (Auto) 91.9 % Lymph % (Auto) 3.1 % [place] % (Auto) 4.4 % Eos % (Auto) 0.0 % Baso % (Auto) 0.2 % Neut # (Auto) 14.72 H (1.40-6.50) K/uL Lymph # (Auto) 0.49 L (1.20-3.40) K/uL [place] # (Auto) 0.70 H (0.11-0.59) K/uL Eos # (Auto) 0.00 (0.00-0.50) K/uL Baso # (Auto) 0.03 (0.00-0.20) K/uL Immature Gran # (Auto) 0.06 (0.01-0.20) K/uL Polychromasia 1+ Hypochromasia Present Anisocytosis Present Microcytosis Present Sodium 141 (136-145) mmol/L Potassium 4.1 (3.5-5.1) mmol/L Chloride 108 H (98-107) mmol/L Carbon Dioxide 20 L (21-32) mmol/L Anion Gap 13 H (3-11) BUN 43 H (6-23) mg/dl Creatinine 1.90 H (0.6-1.4) mg/dl Est Cr Clr Drug Dosing 31.5 ml/min Est GFR ( Amer) 37.5 ml/min Est GFR (Non-Af Amer) 32.3 ml/min BUN/Creatinine Ratio 22.6 H (10-20) Glucose 197 H (70-99(Fasting)) mg/dl Lactate 2.1 H* (0.4-2.0) mmol/L Calcium 9.8 (8.6-10.3) mg/dl Magnesium 2.2 (1.7-2.4) mg/dl Total Bilirubin 2.0 H (0.2-1.0) mg/dl Direct Bilirubin 0.7 H (0-0.2) mg/dl AST 22 (13-39) U/L ALT 19 (7-52) U/L Alkaline Phosphatase 129 H (34-104) U/L Troponin I High Sens 26.4 H 25.1 H (0-20) pg/ml Total Protein 7.8 (6.0-8.3) gm/dl Albumin 4.2 (3.4-5.0) gm/dl Lipase 62 (11-82) U/L Administered Medications Amiodarone HCl (Amiodarone 200 Mg Tab) 200 mg PO DAILY MELANI Stop: 06/12/24 18:24 Last Admin: 05/14/24 07:27 Dose: 200 mg Documented By: Admin: 05/13/24 19:39 Dose: 200 mg Documented By: EFK Apixaban (Apixaban 2.5 Mg Tab) 2.5 mg PO BID MELANI Stop: 06/12/24 20:59 Last Admin: 05/14/24 07:24 Dose: 2.5 mg Documented By: Admin: 05/13/24 23:04 Dose: 2.5 mg Documented By: PIEDAD Bicalutamide (Bicalutamide 50 Mg Tab) 50 mg PO DAILY [facility] Stop: 06/12/24 18:24 Last Admin: 05/14/24 07:26 Dose: 50 mg Documented By: LAWRENCE Co-signed By: [id number] Admin: 05/13/24 19:41 Dose: 50 mg Documented By: PIEDAD Co-signed By: NINA Clopidogrel Bisulfate (Clopidogrel Bisulfate 75 Mg Tab) 75 mg PO QAM MELANI Stop: 06/12/24 18:24 Last Admin: 05/14/24 07:26 Dose: 75 mg Documented By: Admin: 05/13/24 19:40 Dose: Not Given Documented By: PIEDAD Erythromycin (Erythromycin Op Oint 5 Mg/Gm 3.5 Gm Tube) 1 appln OP QID [facility] Stop: 05/17/24 18:24 Last Admin: 05/14/24 07:28 Dose: 1 appln Documented By: Admin: 05/13/24 22:57 Dose: Not Given Documented By: Admin: 05/13/24 19:43 Dose: Not Given Documented By: PIEDAD Piperacillin Sod/Tazobactam Sod (Zosyn) 4.5 gm in 100 mls @ 25 mls/hr IV Q8H [facility] Stop: 05/21/24 00:00 Last Admin: 05/14/24 07:23 Dose: 25 mls/hr Documented By: Infusion: 05/14/24 05:12 Dose: Infused Documented By: Admin: 05/14/24 01:04 Dose: 25 mls/hr Documented By: PIEDAD Lactated Ringer's (Lr) 1,000 mls @ 80 mls/hr IV .[id number] [facility] Stop: 06/12/24 18:24 Last Admin: 05/13/24 19:43 Dose: 80 mls/hr Documented By: PIEDAD Insulin Aspart (Insulin Aspart Per Unit Charge) 0 units SC Q6 MELANI Stop: 06/12/24 21:44 Last Admin: 05/14/24 04:29 Dose: Not Given Documented By: Admin: 05/13/24 23:10 Dose: 1 units Documented By: PIEDAD Co-signed By: KARINA Levothyroxine Sodium (Levothyroxine Sodium 112 Mcg Tablet) 112 mcg PO DAILYBB MELANI Stop: 06/13/24 06:29 Last Admin: 05/14/24 05:26 Dose: 112 mcg Documented By: PIEDAD Metoprolol Succinate (Metoprolol Succ 50mg Ext Rel Tab) 50 mg PO BID MELANI Stop: 06/12/24 20:59 Last Admin: 05/14/24 07:24 Dose: 50 mg Documented By: Admin: 05/13/24 23:04 Dose: 50 mg Documented By: PIEDAD Tamsulosin HCl (Tamsulosin Hcl 0.4 Mg Cap) 0.4 mg PO DAILY MELANI Stop: 06/13/24 08:59 Last Admin: 05/14/24 07:24 Dose: 0.4 mg Documented By: LAWRENCE Vitamin D (Cholecalciferol 25 Mcg (1000 Units) Tab) 50 mcg PO DAILY MELANI Stop: 06/13/24 08:59 Last Admin: 05/14/24 07:25 Dose: 50 mcg Documented By: LAWRENCE Discontinued Medications Sodium Chloride (Nss) 500 mls @ 999 mls/hr IV .Q31M ONE Stop: 05/13/24 12:30 Last Infusion: 05/13/24 14:13 Dose: Infused Documented By: Admin: 05/13/24 12:12 Dose: 999 mls/hr Documented By: LATA Ampicillin Sodium/Sulbactam Sodium (Unasyn) 3,000 mg in 100 mls @ 200 mls/hr IV NOW STA Stop: 05/13/24 13:25 Last Infusion: 05/13/24 14:08 Dose: Infused Documented By: Admin: 05/13/24 13:24 Dose: 200 mls/hr Documented By: KARLI Piperacillin Sod/Tazobactam Sod (Zosyn) 4.5 gm in 100 mls @ 200 mls/hr IV ONE ONE Stop: 05/13/24 19:14 Last Infusion: 05/13/24 20:50 Dose: Infused Documented By: Admin: 05/13/24 19:47 Dose: 200 mls/hr Documented By: PIEDAD Ondansetron HCl (Ondansetron Inj 2 Mg/Ml 2 Ml Vial) 4 mg IV NOW STA Stop: 05/13/24 12:01 Last Admin: 05/13/24 12:12 Dose: 4 mg Documented By: [facility] Imaging Data Radiologist's Impression: Abdomen/Pelvis CT 05/13/24 12:[address] WITHOUT CONTRAST CT DOSE: 1346.89 mGy.cm HISTORY: Acute nausea with vomiting Vomiting, lack of BM x 1 week TECHNIQUE: Multiaxial CT images of the abdomen and pelvis were performed without contrast. A dose lowering technique was utilized adhering to the principles of ALARA. COMPARISON STUDY: None. FINDINGS: Cardiomegaly. Partially imaged pacer leads. Median sternotomy. Patchy bibasilar consolidative opacities with mucous plugging, left greater than right. No pneumatosis or pneumoperitoneum. The unenhanced spleen, pancreas and adrenal glands are within normal limits. Cholelithiasis without CT evidence of acute cholecystitis. Unremarkable liver. 3 mm nonobstructing left renal calculus. No ureteral calculi or hydronephrosis. Prostatomegaly. Urinary bladder wall thickening suggestive of chronic outlet obstruction. Atherosclerosis of the aorta and branch vessels. No lymphadenopathy. Dilated fluid-filled distal esophagus, stomach, duodenum and small bowel loops. High-grade small bowel junction with dilated loops measure up to 4.6 cm secondary to an incarcerated small umbilical hernia on image 259 series 3. This contains the single loop of obstructive bowel and trace fluid. Decompressed loops are seen distally. Colonic diverticulosis. The appendix is not definitively seen. Mesenteric edema with anasarca. No acute fracture. IMPRESSION: 1. High-grade small bowel obstruction secondary to an incarcerated umbilical hernia containing an obstructed loop of small bowel. Surgical consultation is needed. 2. No pneumatosis or pneumoperitoneum. 3. Patchy left greater than right bibasilar airspace opacities compatible with multifocal pneumonia. 4. Cholelithiasis. 5. Left nephrolithiasis. 6. Incidental findings as above. ACT 112: Negative or not required by law. The above report was generated using voice recognition software. It may contain grammatical, syntax or spelling errors. Electronically signed by: Dennis Bazzi M.D. 05/13/2024 1:05 PM Chest X-Ray 05/13/24 12:40 XR chest 1V portable HISTORY: 83 years-old Male aspiration pneumonia acute shortness of breath COMPARISON: 03/11/2023 TECHNIQUE: AP view of the chest FINDINGS: Cardiac silhouette is enlarged. Median sternotomy with left subclavian pacer/AICD. Pulmonary vascular congestion with interstitial coarsening. No pneumothorax. Patchy (right bibasilar consolidation. Bones appear grossly intact. IMPRESSION: 1. Cardiomegaly with pulmonary vascular congestion. 2. Left greater than right bibasilar consolidation suggestive of pneumonia. ACT 112: Negative or not required by law. The above report was generated using voice recognition software. It may contain grammatical, syntax or spelling errors. Electronically signed by: Dennis Bazzi M.D. 05/13/2024 12:51 PM Discharge Plan Visit Data Chief Complaint: Vomiting Stated Complaint: VOMITING FOR A WEEK, NOT EATING, NO MEDS ED Provider: Ochoa Kessler Discharge Problem: Incarcerated umbilical hernia, Small bowel obstruction, Aspiration pneumonia of left lower lobe, Elevated lactic acid level Patient Disposition: Admitted As Inpatient Discharge Instructions Interventions: ED Discharge Assessment Last Done: 05/13/24 17:35 Discharge Problem: Aspiration pneumonia of left lower lobe Qualifiers: Aspiration pneumonia type: due to vomit Qualified Code(s): J69.0 - Pneumonitis due to inhalation of food and vomit
[2024-05-13] MEDS: ONDANSETRON INJ 2 MG/ML 2 ML VIAL IV STA (12:12)
[2024-05-13] MEDS: SODIUM CHLORIDE 0.9% 500 ML IV ONE (12:12)
[2024-05-13 12:39] LABS: Hematocrit (blood only) 40.8 % (42.0-52.0); Hemoglobin 12.5 g/dl (14.0-18.0); Mean Corpuscular Hemoglobin 24.4 pg (25.0-34.0); Mean Corpuscular Hgb Conc 30.6 g/dL (32.0-36.0); Mean Corpuscular Volume 79.5 fL (80.0-100.0); Mean Platelet Volume 9.6 fL (9.4-12.4); Platelet Count 254 K/uL (130-400); RDW Coefficient of Variation 21.6 % (11.5-14.5); RDW Standard Deviation 58.4 fL (36.4-46.3); Red Blood Count 5.13 M/uL (4.70-6.10)
--- NOTE | 2024-05-13 12:52 | XRay Report ---
XR chest 1V portable HISTORY: 83 years-old Male aspiration pneumonia acute shortness of breath COMPARISON: 03/11/2023 TECHNIQUE: AP view of the chest FINDINGS: Cardiac silhouette is enlarged. Median sternotomy with left subclavian pacer/AICD. Pulmonary vascular congestion with interstitial coarsening. No pneumothorax. Patchy (right bibasilar consolidation. Bon es appear grossly intact. IMPRESSION: 1. Cardiomegaly with pulmonary vascular congestion. 2. Left greater than right bibasilar consolidation suggestive of pneumonia. ACT 112: Negative or not required by law. The above report was generated using voice recognition software. It may contain grammatical, syntax o r spelling errors. Electronically signed by: Dennis Bazzi M.D. 05/13/2024 12:51 PM
[2024-05-13 12:57] LABS: Anisocytosis Present; Basophils # (auto) 0.03 K/uL (0.00-0.20); Basophils % (auto) 0.2 %; Hypochromasia Present; Immature Granulocytes # (auto) 0.06 K/uL (0.01-0.20); Immature Granulocytes % (auto) 0.4 %; Lymphocytes # (auto) 0.49 K/uL (1.20-3.40); Lymphocytes % (auto) 3.1 %; Microcytosis Present; Monocytes % (auto) 4.4 %; Neutrophils # (auto) 14.72 K/uL (1.40-6.50); Neutrophils % (auto) 91.9 %; Polychromasia 1+
[2024-05-13 13:03] LABS: Albumin Level 4.2 gm/dl (3.4-5.0); BUN Creatinine Ratio 22.6 (10-20); Bilirubin Direct 0.7 mg/dl (0-0.2); Calcium 9.8 mg/dl (8.6-10.3); Creatinine Clr Calc Pharmacy 31.5 ml/min; Est GFR (African American) 37.5 ml/min; Est GFR (Non-African American) 32.3 ml/min; Magnesium 2.2 mg/dl (1.7-2.4); Potassium 4.1 mmol/L (3.5-5.1); Total Protein 7.8 gm/dl (6.0-8.3)
[2024-05-13 13:08] LABS: Troponin I High Sensitivity 26.4 pg/ml (0-20)
--- NOTE | 2024-05-13 13:08 | CT Scan Report ---
ABDOMEN AND PELVIS CT WITHOUT CONTRAST CT DOSE: 1346.89 mGy.cm HISTORY: Acute nausea with vomiting Vomiting, lack of BM x 1 week TECHNIQUE: Multiaxial CT images of the abdomen and pelvis were performed without contrast. A dose lo wering technique was utilized adhering to the principles of ALARA. COMPARISON STUDY: None. FINDINGS: Cardiomegaly. Partially imaged pacer leads. Median sternotomy. Patchy bibasilar consolidati ve opacities with mucous plugging, left greater than right. No pneumatosis or pneumoperitoneum. The u nenhanced spleen, pancreas and adrenal glands are within normal limits. Cholelithiasis without CT spike dence of acute cholecystitis. Unremarkable liver. 3 mm nonobstructing left renal calculus. No ureteral calculi or hydronephrosis. Prostatomegaly. Urina ry bladder wall thickening suggestive of chronic outlet obstruction. Atherosclerosis of the aorta and branch vessels. No lymphadenopathy. Dilated fluid-filled distal esophagus, stomach, duodenum and small bowel loops. High-grade small matilde l junction with dilated loops measure up to 4.6 cm secondary to an incarcerated small umbilical herni a on image 259 series 3. This contains the single loop of obstructive bowel and trace fluid. Decompre ssed loops are seen distally. Colonic diverticulosis. The appendix is not definitively seen. Mesenter ic edema with anasarca. No acute fracture. IMPRESSION: 1. High-grade small bowel obstruction secondary to an incarcerated umbilical hernia containing an obs tructed loop of small bowel. Surgical consultation is needed. 2. No pneumatosis or pneumoperitoneum. 3. Patchy left greater than right bibasilar airspace opacities compatible with multifocal pneumonia. 4. Cholelithiasis. 5. Left nephrolithiasis. 6. Incidental findings as above. ACT 112: Negative or not required by law. The above report was generated using voice recognition software. It may contain grammatical, syntax o r spelling errors. Electronically signed by: Dennis Bazzi M.D. 05/13/2024 1:05 PM
[2024-05-13] MEDS: AMPICILLIN/SULBACTAM SOD 3,000 MG/100 ML BAG IV STA (13:24)
--- NOTE | 2024-05-13 13:45 | Surgery Consultation ---
Date of Consultation May 13, 2024 Assessment & Plan (1) Incarcerated umbilical hernia: (2) Small bowel obstruction: Plan 83-year-old gentleman with incarcerated umbilical hernia leading to a small bowel obstruction. Able to reduce the hernia on exam. This reduced completely. He has minimal pain. White count was 16, and lactic acid was 2.1. He has an extensive cardiac history. He has a aspiration pneumonia. He will be admitted to the medicine service. Will continue to monitor him. If he begins to have significant abdominal tenderness or signs of bowel ischemia from the reduced loop of bowel, he may require exploratory laparotomy. We will continue to follow him closely while he is here. History of Present Illness Reason for Consultation: SBO with incarcerated hernia Requesting Physician: Ochoa Kessler MD Attending Physician: Ochoa Kessler MD History of Present Illness 83-year-old gentleman with multiple medical problems presents with a 1 week history of no bowel movements or flatus. He has been nauseated and vomiting for a number of days. He denies abdominal pain. He has an extensive cardiac history including open heart surgery and pacemaker placement. Currently he denies fevers or chills. He has not eaten. Allergies Allergy/AdvReac Type Severity Reaction Status Date / Time lisinopril AdvReac Mild COUGHING Verified 12/09/21 14:12 Home Medications Medication Instructions Recorded Confirmed Type amiodarone 200 mg tablet 200 mg PO BID 03/11/23 03/11/23 History atorvastatin 40 mg tablet 40 mg PO DAILY 03/11/23 03/11/23 History cholecalciferol (vitamin D3) 50 50 mcg PO DAILY 03/11/23 03/11/23 History mcg (2,000 unit) capsule (Vitamin D3) furosemide 20 mg tablet 20 mg PO DAILY 03/11/23 03/11/23 History levothyroxine 100 mcg tablet 100 mcg PO DAILY@1630 03/11/23 03/11/23 History losartan 50 mg tablet 25 mg PO BID 03/11/23 03/11/23 History metformin 1,000 mg tablet 1,000 mg PO DAILY 03/11/23 03/11/23 History metoprolol succinate 25 mg 37.5 mg PO BID 03/11/23 03/11/23 History tablet,extended release 24 hr potassium chloride 10 mEq 10 meq PO DAILY 03/11/23 03/11/23 History capsule,extended release pregabalin 200 mg capsule 200 mg PO BID 03/11/23 03/11/23 History semaglutide 0.25 mg or 0.5 mg (2 0.25 mg subcut Q7D 03/11/23 03/11/23 History mg/3 mL) subcutaneous pen injector (Ozempic) apixaban 5 mg tablet (Eliquis) 5 mg PO BID #60 tabs 03/12/23 Rx clopidogrel 75 mg tablet 75 mg PO QAM #30 tabs 03/12/23 Rx tamsulosin 0.4 mg capsule 0.4 mg PO DAILY #90 caps 07/29/23 07/29/23 Rx Patient History Medical History 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 Phlebitis/thrombophlebitis Surgical History AICD present, double chamber Family History Brother V-tach required AICD Social History Smoking Status: Never smoker Do You Dip or Chew Tobacco: No; Hx Alcohol Use: No Hx Substance Use: No Preferred Language: Turkmen Communication Ability: Effective Sweet Dough Mixer Required: No Beliefs That Will Affect Care: None marital status: Single Current Living Situation: Alone Current Living Situation Comment: Lives alone in a house current occupational status: retired Feels Safe at Home: Yes Assistive Devices: None Review of Systems Review of Systems: All systems reviewed & are unremarkable except as noted in HPI & below Physical Exam Constitutional: WD/WN, vitals as above Eyes: PERRL, conjunctivae normal, anicteric sclerae Neck: trachea midline, no thyromegaly Respiratory: normal respiratory effort; no respiratory distress and no labored breathing Cardiovascular: Rate/Rhythm: regular rate and regular rhythm Gastrointestinal (Abdomen): Inspection/Auscultation: abdomen normal to inspection and + abdomen distended Percussion/Palpation: + abdomen tender ( Mild tenderness at umbilicus), abdomen soft and + hernia ( umbilical hernia containing bowel, reduced on moderate pressure); no guarding and abdomen not rigid Skin: no rashes, warm and dry Psychiatric: A+Ox3, euthymic affect Results & Data Vital Signs (Past 12 Hours) Vital Signs Temp Pulse Resp BP Pulse Ox O2 Del Method 05/13/24 11:37 36.3 C L 87 18 128/66 96 Room Air Laboratory Results 05/13/24 05/13/24 Range/Units 13:10 12:10 WBC 16.00 H (4.8-10.8) K/ul RBC 5.13 (4.70-6.10) M/uL Hgb 12.5 L (14.0-18.0) g/dl Hct 40.8 L (42.0-52.0) % MCV 79.5 L (80.0-100.0) fL MCH 24.4 L (25.0-34.0) pg MCHC 30.6 L (32.0-36.0) g/dL RDW Std Deviation 58.4 H (36.4-46.3) fL RDW Coeff of Perez 21.6 H (11.5-14.5) % Plt Count 254 (130-400) K/uL MPV 9.6 (9.4-12.4) fL Immature Gran % (Auto) 0.4 % Neut % (Auto) 91.9 % Lymph % (Auto) 3.1 % [place] % (Auto) 4.4 % Eos % (Auto) 0.0 % Baso % (Auto) 0.2 % Neut # (Auto) 14.72 H (1.40-6.50) K/uL Lymph # (Auto) 0.49 L (1.20-3.40) K/uL [place] # (Auto) 0.70 H (0.11-0.59) K/uL Eos # (Auto) 0.00 (0.00-0.50) K/uL Baso # (Auto) 0.03 (0.00-0.20) K/uL Immature Gran # (Auto) 0.06 (0.01-0.20) K/uL Polychromasia 1+ Hypochromasia Present Anisocytosis Present Microcytosis Present Sodium 141 (136-145) mmol/L Potassium 4.1 (3.5-5.1) mmol/L Chloride 108 H (98-107) mmol/L Carbon Dioxide 20 L (21-32) mmol/L Anion Gap 13 H (3-11) BUN 43 H (6-23) mg/dl Creatinine 1.90 H (0.6-1.4) mg/dl Est Cr Clr Drug Dosing 31.5 ml/min Est GFR ( Amer) 37.5 ml/min Est GFR (Non-Af Amer) 32.3 ml/min BUN/Creatinine Ratio 22.6 H (10-20) Glucose 197 H (70-99(Fasting)) mg/dl Lactate 2.1 H* (0.4-2.0) mmol/L Calcium 9.8 (8.6-10.3) mg/dl Magnesium 2.2 (1.7-2.4) mg/dl Total Bilirubin 2.0 H (0.2-1.0) mg/dl Direct Bilirubin 0.7 H (0-0.2) mg/dl AST 22 (13-39) U/L ALT 19 (7-52) U/L Alkaline Phosphatase 129 H (34-104) U/L Troponin I High Sens 26.4 H (0-20) pg/ml Total Protein 7.8 (6.0-8.3) gm/dl Albumin 4.2 (3.4-5.0) gm/dl Lipase 62 (11-82) U/L Diagnostic Findings ABDOMEN AND PELVIS CT WITHOUT CONTRAST CT DOSE: 1346.89 mGy.cm HISTORY: Acute nausea with vomiting Vomiting, lack of BM x 1 week TECHNIQUE: Multiaxial CT images of the abdomen and pelvis were performed without contrast. A dose lowering technique was utilized adhering to the principles of ALARA. COMPARISON STUDY: None. FINDINGS: Cardiomegaly. Partially imaged pacer leads. Median sternotomy. Patchy bibasilar consolidative opacities with mucous plugging, left greater than right. No pneumatosis or pneumoperitoneum. The unenhanced spleen, pancreas and adrenal glands are within normal limits. Cholelithiasis without CT evidence of acute cholecystitis. Unremarkable liver. 3 mm nonobstructing left renal calculus. No ureteral calculi or hydronephrosis. Prostatomegaly. Urinary bladder wall thickening suggestive of chronic outlet obstruction. Atherosclerosis of the aorta and branch vessels. No lymphadenopathy. Dilated fluid-filled distal esophagus, stomach, duodenum and small bowel loops. High-grade small bowel junction with dilated loops measure up to 4.6 cm secondary to an incarcerated small umbilical hernia on image 259 series 3. This contains the single loop of obstructive bowel and trace fluid. Decompressed loops are seen distally. Colonic diverticulosis. The appendix is not defi nitively seen. Mesenteric edema with anasarca. No acute fracture. IMPRESSION: 1. High-grade small bowel obstruction secondary to an incarcerated umbilical hernia containing an obstructed loop of small bowel. Surgical consultation is needed. 2. No pneumatosis or pneumoperitoneum. 3. Patchy left greater than right bibasilar airspace opacities compatible with multifocal pneumonia. 4. Cholelithiasis. 5. Left nephrolithiasis. 6. Incidental findings as above.
--- NOTE | 2024-05-13 15:44 | History & Physical Report ---
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 He was found to have a high-grade small bowel obstruction with incarcerated umbilical hernia as well as concern for pneumonia. States that for the last week he has been able to keep food down and has been vomiting. States he has not had a bowel movement for some days as well. Denies fevers. States he lives alone and has been trying to stay hydrated. Patient does note a history of hernia repair at around 15 years of age. High-grade small bowel obstruction Incarcerated umbilical hernia Patient presenting with intractable nausea and vomiting CT abdomen pelvis noting high-grade SBO and incarcerated umbilical hernia Stat general surgery consult by the ED, hernia was reduced at bedside N.p.o. NG tube placement per recs of general surgery A.M. KUB IV fluids As needed pain meds and antiemetics Continue to monitor, appreciate further recs from general surgery Pneumonia, likely aspiration Patient with leukocytosis of 16,000 Lactate elevated (could also be elevated due to possible ischemia from above) Chest x-ray noting pneumonia CT abdomen pelvis also noting pneumonia at the base Consider CT chest for further definition Blood culture pending MRSA nares pending Speech consult Continue with IV Zosyn Elevated troponin Likely demand ischemia in setting of above Trops flat around 25 EKG noting no acute ischemic changes Continue to monitor on telemetry acute on chronic kidney disease Creatinine elevated at 1.9 Baseline approximately 1.4 Patient on IV fluids in the setting of above avoid nephrotoxic meds as able-Holding home losartan. home Lasix with potassium also on hold in the setting of his persistent nausea/vomiting. resume as able Continue to monitor with a.m. labs Elevated liver enzymes Liver enzymes elevated CT abdomen pelvis noting "unremarkable liver" Continue to trend liver enzymes and consider further workup if increasingly elevated history of prostate cancer Recent diagnosis by urology. patient was recently seen for a cardiology visit on May 12 with his head piece assembler for his cardiac issues where he reported the nausea and vomiting. He was advised to continue to hold the Casodex as a possible cause since his symptoms started right after starting this medication. Given that patient was evaluated with noted SBO and incarcerated hernia as likely cause of his nausea and vomiting, will resume Casodex cautiously here. consider reaching out to urology in the a.m. for further recommendations, patient follows with Dr. Regan Alejandro Hx of CAD Hx of v tach s/p pacer defibrillator placement Hx of PAF ischemic cardiomyopathy CHF continue home metoprolol, Plavix, amiodarone, Eliquis Given nausea and vomiting, will hold torsemide with potassium. Resume as able continue to monitor on telemetry continue other home meds as ordered Diet: Currently n.p.o. 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 He was found to have a high-grade small bowel obstruction with incarcerated umbilical hernia as well as concern for pneumonia. States that for the last week he has been able to keep food down and has been vomiting. States he has not had a bowel movement for some days as well. notes that he vomits about 10 episodes daily has a hard time keeping food down as well as liquids. States he is also having abdominal pain. Denies fevers. States he lives alone and has been trying to stay hydrated. Patient does note a history of hernia repair at around 15 years of age In terms of abdominal surgeries. Chart review shows that he was recently diagnosed with prostate cancer after biopsy for elevated PSA. Was started on Casodex. Did have a follow-up with his head piece assembler for his cardiac issues yesterday where he reported the nausea and vomiting. He was advised to continue to hold the Casodex as a possible cause. Allergies Allergy/AdvReac Type Severity Reaction Status Date / Time lisinopril AdvReac Mild COUGHING Verified 12/09/21 14:12 Home Medications Medication Instructions Recorded Confirmed Type amiodarone 200 mg tablet 200 mg PO DAILY 03/11/23 05/13/24 History cholecalciferol (vitamin D3) 50 50 mcg PO DAILY 03/11/23 05/13/24 History mcg (2,000 unit) capsule (Vitamin D3) furosemide 20 mg tablet 40 mg PO DAILY 03/11/23 05/13/24 History losartan 50 mg tablet 25 mg PO BID 03/11/23 05/13/24 History potassium chloride 10 mEq 10 meq PO DAILY 03/11/23 05/13/24 History capsule,extended release tamsulosin 0.4 mg capsule 0.4 mg PO DAILY #90 caps 07/29/23 05/13/24 Rx apixaban 2.5 mg tablet 2.5 mg PO BID 05/13/24 05/13/24 History bicalutamide 50 mg tablet (Casodex) 50 mg PO DAILY 05/13/24 05/13/24 History clopidogrel 75 mg tablet 75 mg PO QAM 05/13/24 05/13/24 History erythromycin 5 mg/gram (0.5 %) eye 0.25 inch ophthalmic (eye) QID 05/13/24 05/13/24 History ointment levothyroxine 112 mcg tablet 112 mcg PO DAILY 05/13/24 05/13/24 History metoprolol succinate 50 mg 50 mg PO BID 05/13/24 05/13/24 History tablet,extended release 24 hr Past Med/Surg History Problem List Small bowel obstruction Incarcerated umbilical hernia Elevated prostate specific antigen (PSA) Stroke-like symptoms (Acute) VENITA (acute kidney injury) (Acute) Hypomagnesemia (Acute) Transient vision disturbance of both eyes Peripheral arterial disease Urinary symptom or sign Ventricular tachycardia (Acute) Defibrillator discharge (Acute) History of left shoulder replacement (Chronic) Ischemic cardiomyopathy (Chronic) "prior EF 35-40% in August 2008; improved EF 50-54% on 11/24/16 echo" Paroxysmal atrial fibrillation (Chronic) "postoperative" History of cardioembolic stroke (Chronic) Mitral regurgitation (Chronic) HTN (hypertension) (Chronic) Dyslipidemia (Chronic) DM type 2 (diabetes mellitus, type 2) (Chronic) BHUPINDER (obstructive sleep apnea) (Chronic) "not on CPAP" PFO (patent foramen ovale) (Chronic) Atrial septal aneurysm (Chronic) Gout (Chronic) 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) Chronic anticoagulation (Chronic) 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) "2004 " History of right shoulder replacement (Chronic) "2009" H/O lithotripsy (Chronic) History of inguinal hernia repair (Chronic) "1954" Medical History 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 Phlebitis/thrombophlebitis Surgical History AICD present, double chamber Family History Brother V-tach required AICD Social History Smoking Status: Never smoker Do You Dip or Chew Tobacco: No; Hx Alcohol Use: No Hx Substance Use: No Preferred Language: Monegasque Communication Ability: Effective Home Housekeeper Required: No Beliefs That Will Affect Care: None marital status: Single Current Living Situation: Alone Current Living Situation Comment: home alone, daughter lives 12 miles away current occupational status: retired Other Information That Helps Us Care for You: No Feels Safe at Home: Yes Safety Concerns: Feels Safe At This Time Assistive Devices: None Review of Systems Review of Systems: All systems reviewed & are unremarkable except as noted in HPI & below Physical Exam Physical Exam: General: Alert, oriented. No acute distress at time of exam Psych: Appropriate mood and affect HEENT: NC/AT, left eye with inturned eyelashes CV: surgical scar on chest, RRR Resp: Breath sounds clear bilaterally, no increased effort of breathing. Abdomen: Soft, nontender during this exam after hernia reduction Extremities: edema in lower extremities bilaterally. Results & Data Results & Data Vital Signs (Past 12 Hours) Vital Signs Temp Pulse Resp BP Pulse Ox O2 Del Method 05/13/24 14:06 70 17 95 05/13/24 13:30 69 21 94 05/13/24 13:03 65 94 05/13/24 12:48 71 21 94 05/13/24 12:21 71 20 92 05/13/24 11:37 36.3 C L 87 18 128/66 96 Room Air Diagnostic Findings Abdomen/Pelvis CT 05/13/24 12:[address] WITHOUT CONTRAST CT DOSE: 1346.89 mGy.cm HISTORY: Acute nausea with vomiting Vomiting, lack of BM x 1 week TECHNIQUE: Multiaxial CT images of the abdomen and pelvis were performed without contrast. A dose lowering technique was utilized adhering to the principles of ALARA. COMPARISON STUDY: None. FINDINGS: Cardiomegaly. Partially imaged pacer leads. Median sternotomy. Patchy bibasilar consolidative opacities with mucous plugging, left greater than right. No pneumatosis or pneumoperitoneum. The unenhanced spleen, pancreas and adrenal glands are within normal limits. Cholelithiasis without CT evidence of acute cholecystitis. Unremarkable liver. 3 mm nonobstructing left renal calculus. No ureteral calculi or hydronephrosis. Prostatomegaly. Urinary bladder wall thickening suggestive of chronic outlet obstruction. Atherosclerosis of the aorta and branch vessels. No lymphadenopathy. Dilated fluid-filled distal esophagus, stomach, duodenum and small bowel loops. High-grade small bowel junction with dilated loops measure up to 4.6 cm secondary to an incarcerated small umbilical hernia on image 259 series 3. This contains the single loop of obstructive bowel and trace fluid. Decompressed loops are seen distally. Colonic diverticulosis. The appendix is not definitively seen. Mesenteric edema with anasarca. No acute fracture. IMPRESSION: 1. High-grade small bowel obstruction secondary to an incarcerated umbilical hernia containing an obstructed loop of small bowel. Surgical consultation is needed. 2. No pneumatosis or pneumoperitoneum. 3. Patchy left greater than right bibasilar airspace opacities compatible with multifocal pneumonia. 4. Cholelithiasis. 5. Left nephrolithiasis. 6. Incidental findings as above. ACT 112: Negative or not required by law. The above report was generated using voice recognition software. It may contain grammatical, syntax or spelling errors. Electronically signed by: Dennis Bazzi M.D. 05/13/2024 1:05 PM Chest X-Ray 05/13/24 12:40 XR chest 1V portable HISTORY: 83 years-old Male aspiration pneumonia acute shortness of breath COMPARISON: 03/11/2023 TECHNIQUE: AP view of the chest FINDINGS: Cardiac silhouette is enlarged. Median sternotomy with left subclavian pacer/AICD. Pulmonary vascular congestion with interstitial coarsening. No pneumothorax. Patchy (right bibasilar consolidation. Bones appear grossly intact. IMPRESSION: 1. Cardiomegaly with pulmonary vascular congestion. 2. Left greater than right bibasilar consolidation suggestive of pneumonia. ACT 112: Negative or not required by law. The above report was generated using voice recognition software. It may contain grammatical, syntax or spelling errors. Electronically signed by: Dennis Bazzi M.D. 05/13/2024 12:51 PM
[2024-05-13 17:01] LABS: Appearance Urine Clear (Clear); Bacteria Urine Automated None Seen (None Seen); Bilirubin Urine Negative (Negative); Blood Urine Negative (Negative); Color Urine Dark Yellow; Glucose Urine UA Negative (Negative); Ketones Urine 1+ (Negative); Leukocyte Esterase Urine Trace (Negative); Nitrite Urine Negative (Negative); Protein Urine 1+ (Negative); RBC Urine Automated 0-2 /hpf (0-2); Specific Gravity Urine 1.023 (1.000-1.030); Urobilinogen Urine Negative (Negative); WBC Urine Automated 0-5 /hpf (0-5)
[2024-05-13] MEDS ORDERED: ONDANSETRON INJ 2 MG/ML 2 ML VIAL IV PRN (18:25)
--- OUTSIDE RECORDS SUMMARY | 2024-05-13 18:28 | External Medical Summary | Summary of Care ---
Author Name Unknown Organization [facility] Address [address] [facility] [place] [address] Phone [phone] Care Team Providers Care [employer] Name Role Phone Sandra Goldstein MD Primary Care Prov ider Reason for Visit * Reason Onset Date Comments [facility]: Acute 05/13/2024 Encounter Details Date Type Department Care Team (Late st Contact Info) Description 05/13/2024 9:00 AM EDT Scheduled Telephone [facility], [facility] [address] [place] [address] [facility], Nurse [facility] [address] [place] [address] Allergies Active Allergy Reactions Criticality Noted Date Comments Lisinopril Cough Low 12/21/2012 documented as of this encounter (statuses as of 05/13/2024) Medications Medication Sig Dispensed Refills Start Date [...] Oral Capsule Take by mouth daily. Active [place] 3 1000 MG Oral Capsule Take by mouth daily. Active Levothyroxine Sodium 112 MCG Oral Tablet (Levoxyl)Indications :Hypothyroidism due to acquired atrophy of thyroid Take 1 Tablet by mouth daily first thing in the morning at least 30 min prior to breakfast or other meds 90 Tablet 3 04/11/2024 Active Nystatin 431158 UNIT/GM External CreamIndications:Can didal diaper dermatitis Apply [...] as of this encounter (statuses as of 05/13/2024) Active Problems Problem Noted Date Diagnosed Date [...] as of this encounter (statuses as of 05/13/2024) Resolved Problems Problem Noted Date Diagnosed Date [...] CHF 05/26/2019 05/22/2022 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 hospice physician 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 [facility] Telephonic Nurse Follow-Up Call [facility] Subprogram: No data was found Follow Up Call Type: Weekend Call Acute issue requiring follow-up call: Other: Irretractable Nausea and Vomiting x 1 week; no BM x 6 days Objective: 05/12/2024 2:32 PM 05/11/2024 12:15 PM 05/10/2024 10:11 AM 05/08/2024 12:21 PM 04/28/2024 9:02 AM VITALS ACROSS ENCOUNTERS BP 126/74 108/70 118/68 120/70 92/62 Pulse 76 72 72 72 70 Weight 91.4 kg BMI 30.64 kg/m2 Remote Patient Monitoring: NONE Oxygen Needs: NO CHANGE from baseline supplemental oxygen needs DME Needs: NO DME needs identified Medications: No medication or dose adjustments made during acute episode Subjective: Condition Status: Left message to return call Current Concerns: Pt placed call to [facility] triage this AM- reported irretractable nausea and vomiting, decreased urination, no BM since last Wednesday, abdominal pain. Triage advised to go to ED. Phone call to pt to see if he went to ED- went straight to , left message to return call. Disposition: Weekend call scheduled Future Visits Scheduled: Future Appointments-next 60 days Date/Time Provider Specialty Dept Phone 05/14/2024 8:45 AM Nurse Shea Gordon [facility] [phone] 05/15/2024 8:30 AM Kelly Rosa RN [facility] [phone] 05/16/2024 9:45 AM (Arrive by 9:30 AM) [facility] PET INJECTION Radiology [phone] 05/16/2024 11:00 AM PET MOBILE [facility] [phone] 05/17/2024 4:00 PM Kelly Rosa RN [facility] [phone] 05/22/2024 9:50 AM Marshall Paez T, DO Ophthalmology [phone] 05/22/2024 3:30 PM Regan Alejandro MD Urology Arrive at: Patient's Home [phone] 06/15/2024 5:30 PM Kelly Rosa RN [facility] [phone] 06/24/2024 9:00 AM (Arrive by 8:45 AM) Sandra Goldstein MD Family Medicine [phone] 09/12/2024 10:30 AM (Arrive by 10:15 AM) Luiz Pina PA-[facility] [phone] 10/24/2024 10:30 AM Nurse Juliann [facility] [phone] Aron Montana RN documented in this encounter Plan of Treatment Upcoming Encounters Date Type Department Care Team (Late st Contact Info) Description 05/14/2024 8:45 AM EDT Scheduled Telephone [facility] [place], [facility] [address] [facility] [place] [address] [facility] Nurse [facility] [address] [facility] [address] 05/15/2024 8:30 AM EDT Home Visit [facility], [facility] [address] [facility] [address] Kelly Rosa, JULIA [address] [facility] [place] [address] 05/16/2024 9:45 AM EDT Imaging Radiology [facility] [address] [facility] [address] 05/17/2024 4:00 PM EDT Home Visit [facility], [facility] [address] [facility] [address] Kelly Rosa RN [address] [facility] [address] 05/22/2024 9:50 AM EDT Office Visit Ophthalmology, [facility] [address] [place] [address] Marshall Paez T, DO [address] [place] [address] 05/22/2024 3:30 PM EDT Telemedicine Urology, [facility] [address] [place] [place] [address] Regan Alejandro MD [address] [place] [address] 06/15/2024 5:30 PM EDT Home Visit [facility], [facility] [address] [facility] [place] [address] Kelly Rosa RN [address] [place] [address] 06/24/2024 9:00 AM EDT Office Visit Family [facility] [address] [place] [address] Sandra Goldstein MD [address] [place] [address] [place] [address] 09/12/2024 10:30 AM EST Office Visit Cardiology [address] [place] [address] Luiz Pina PA-C [address] [place] [address] 10/24/2024 10:30 AM EST Nurse Only Ancillary [address] [place] [address] [place], Nurse [facility] [address] [place] [address] [place] [address] Health Maintenance Due Date Last Done Comments Diabetic Foot Exam 04/21/2024 04/21/2023, 1 , 05/28/2020, Additional history exists COVID-19 Vaccine ( season) 2024 10/01/2022, 06/17/2021, 11/14/2020, Additional history exists Influenza Vaccine (FLU shot) (#1) 2024 04/27/2023, 06/27/2022, 06/05/2021, Additional history exists CKD PHOS USE SMARTSET 14787 05/29/202402/2023, 10/01/2022, 12/04/2020, Additional history exists HbA1c 09/07/2024 03/07/2024, 10/21, 05/29/2023, Additional history exists Adult Wellness Visit 10/20/2024 10/21/2023 Depression Screening 10/20/2024 10/21/2023 B-12 11/07/2024 11/08/2023, 04/2023, 12/04/2020, Additional history exists GFR 11/07/2024 05/10/2024, 02/20, 11/08/2023, Additional history exists Albumin/Creatinine Ratio 11/08/202411/08/2 024, 10/08/2022, 11/30/2017, Additional history exists Diabetic Eye Exam 01/24/2025 01/25/2024, , 06/15/2023, Additional history exists CKD HGB USE SMARTSET 96258 05/10/202505/10, 05/10/2024, 05/29/2023, Additional history exists TSH 05/10/2025 05/10/2024, 02/20, 07/01/2023, Additional history exists DTap/Tdap Vaccines (3 - [...] this encounter Medical Devices Implanted Type Area Paper Gluing Operator Device Identifier Shelf Expiration Date Model / Serial / Lot Sut Steel 6 [id number] - [id number] Implanted:Qty: 4 on 10/21/2015 by Riki Chan MD at OR [facility] N/A: Chest JNJ : [employer] 07/22/2020 [id number] / / [id number] Marker Coronary Amgm-Sd - [id number] Implanted:Qty: 1 on 10/21/2015 by Riki Chan MD at OR [facility] N/A: Chest [employer] 08/22/2018 AMGM-SD / / [id number] Marker Coronary Amgm-Sd - [id number] Implanted:Qty: 1 on 10/21/2015 by Riki Chan MD at OR [facility] Chest [employer] 06/22/2018 AM-SD / / [id number] documented as of this encounter Advance Directives [...] and were consensually agreed upon. 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
[2024-05-13] MEDS: AMIODARONE 200 MG TAB PO SCH (19:39)
[2024-05-13] MEDS: CLOPIDOGREL BISULFATE 75 MG TAB PO SCH (19:40)
[2024-05-13] MEDS: BICALUTAMIDE 50 MG TAB PO SCH (19:41)
[2024-05-13] MEDS: ERYTHROMYCIN OP OINT 5 MG/GM 3.5 GM TUBE OP SCH (19:43)
[2024-05-13] MEDS: LACTATED RINGER'S 1,000 ML IV SCH (19:43)
[2024-05-13] MEDS: PIPERACILLIN/TAZOBACTAM 4.5 GM/100 ML BAG IV ONE (19:47)
[2024-05-13] MEDS ORDERED: GLUCOSE 40% GEL 15 GM TUBE PO PRN (21:35)
[2024-05-13] MEDS ORDERED: GLUCOSE 10 TAB/TUBE PO PRN (21:35)
[2024-05-13] MEDS ORDERED: CARBOHYDRATES FOR HYPOGLYCEMIA PO PRN (21:35)
[2024-05-13] MEDS ORDERED: GLUCAGON FOR INJ 1 MG VIAL SQ PRN (21:35)
[2024-05-13] MEDS ORDERED: HYDROmorphone INJ 0.5 MG/0.5 ML SYR IV PRN (21:51)
[2024-05-13] MEDS: APIXABAN 2.5 MG TAB PO SCH (23:04)
[2024-05-13] MEDS: METOPROLOL SUCC 50MG EXT REL TAB PO SCH (23:04)
[2024-05-13] MEDS: INSULIN ASPART PER UNIT CHARGE SC SCH (23:10)
[2024-05-14] MEDS: PIPERACILLIN/TAZOBACTAM 4.5 GM/100 ML BAG IV SCH (01:04)
[2024-05-14] MEDS: LEVOTHYROXINE SODIUM 112 MCG TABLET PO SCH (05:26)
[2024-05-14] MEDS: TAMSULOSIN HCL 0.4 MG CAP PO SCH (07:24)
[2024-05-14] MEDS: CHOLECALCIFEROL 25 MCG (1000 UNITS) TAB PO SCH (07:25)
[2024-05-14 08:18] LABS: Hematocrit (blood only) 29.6 % (42.0-52.0); Hemoglobin 9.3 g/dl (14.0-18.0); Mean Corpuscular Hemoglobin 24.5 pg (25.0-34.0); Mean Corpuscular Hgb Conc 31.4 g/dL (32.0-36.0); Mean Corpuscular Volume 78.1 fL (80.0-100.0); Mean Platelet Volume 9.3 fL (9.4-12.4); Platelet Count 173 K/uL (130-400); RDW Coefficient of Variation 21.1 % (11.5-14.5); RDW Standard Deviation 57.3 fL (36.4-46.3); Red Blood Count 3.79 M/uL (4.70-6.10); White Blood Count 7.36 K/ul (4.8-10.8)
[2024-05-14 08:30] LABS: Anisocytosis Present; Basophils # (auto) 0.03 K/uL (0.00-0.20); Basophils % (auto) 0.4 %; Eosinophils # (auto) 0.34 K/uL (0.00-0.50); Eosinophils % (auto) 4.6 %; Hypochromasia Present; Immature Granulocytes # (auto) 0.04 K/uL (0.01-0.20); Immature Granulocytes % (auto) 0.5 %; Lymphocytes % (auto) 14.9 %; Monocytes # (auto) 0.44 K/uL (0.11-0.59); Neutrophils # (auto) 5.41 K/uL (1.40-6.50); Neutrophils % (auto) 73.6 %
[2024-05-14 08:32] LABS: Albumin Globulin Ratio 1.3 (0.9-2); BUN Creatinine Ratio 25.6 (10-20); Bilirubin,Total 1.4 mg/dl (0.2-1.0); Calcium 8.3 mg/dl (8.6-10.3); Creatinine Clr Calc Pharmacy 37.4 ml/min; Est GFR (African American) 46.1 ml/min; Est GFR (Non-African American) 39.8 ml/min; Globulin 2.4 gm/dl (2.5-4.0); Phosphorus 2.3 mg/dl (2.5-4.9); Potassium 3.5 mmol/L (3.5-5.1); Total Protein 5.4 gm/dl (6.0-8.3)
--- NOTE | 2024-05-14 08:35 | XRay Report ---
KUB CLINICAL HISTORY: follow up SBO COMPARISON STUDY: CT of the abdomen and pelvis May 13, 2024. FINDINGS: Multiple loops of moderately dilated small bowel measure up to 5.3 cm in caliber. Gaseous d istention of the stomach is noted. No evidence for free air although sensitivity is diminished on sup ine exam. No radiographic evidence for pneumatosis or portal venous gas. Bilateral lower lung airspac e opacities, greater on the left, are noted. IMPRESSION: 1. Findings consistent with a persistent small bowel obstruction. Gastric distention. 2. Bilateral lower lung opacities suggestive of pneumonia or aspiration pneumonitis. ACT 112: Negative or not required by law. Electronically signed by: Shiva Chow M.D. 05/14/2024 8:34 AM
[2024-05-14 08:51] LABS: Estimated Average Glucose 137 mg/dl; Hemoglobin A1C 6.4 % (4.5-5.6)
--- NOTE | 2024-05-14 10:49 | Surgery Progress Note ---
Date of Service May 14, 2024 Assessment & Plan (1) Incarcerated umbilical hernia: (2) Small bowel obstruction: Plan 83-year-old gentleman with incarcerated umbilical hernia leading to a small bowel obstruction. Able to reduce the hernia on exam. This reduced completely. He has minimal pain. White count was 16, and lactic acid was 2.1. He has an extensive cardiac history. He has a aspiration pneumonia. He will be admitted to the medicine service. Will continue to monitor him. If he begins to have significant abdominal tenderness or signs of bowel ischemia from the reduced loop of bowel, he may require exploratory laparotomy. We will continue to follow him closely while he is here. 05/14/2024 - doing well, having bowel movements. From the surgical standpoint he may be discharged to home. Surgery will sign off. Please call with quest ions or concerns. Admission and Anticipated Discharge Date Admission Date: May 13, 2024 Subjective Feeling much better this morning. He has had multiple bowel movements. He denies abdominal pain. He denies fevers. Physical Exam Physical Exam: AFVSS NAD, A&O x 3 NCAT abdomen: Soft, NTND Hernia remains reduced Results & Data Vital Signs (Past 12 Hours) Vital Signs Temp Pulse Pulse Resp BP BP Pulse Ox 05/14/24 08:20 05/14/24 07:47 36.7 C 69 18 102/60 95 05/14/24 06:55 70 05/14/24 04:39 74 107/66 05/14/24 04:30 37.0 C 81 20 92/59 L 92 05/14/24 00:49 36.4 C L 62 20 104/62 O2 Del Method 05/14/24 08:20 Room Air 05/14/24 07:47 Room Air 05/14/24 06:55 05/14/24 04:39 05/14/24 04:30 Room Air 05/14/24 00:49 Room Air Laboratory Results 05/14/24 05/14/24 05/13/24 Range/Units 07:48 04:14 23:03 WBC 7.36 (4.8-10.8) K/ul RBC 3.79 L (4.70-6.10) M/uL Hgb 9.3 L D (14.0-18.0) g/dl Hct 29.6 L (42.0-52.0) % MCV 78.1 L (80.0-100.0) fL MCH 24.5 L (25.0-34.0) pg MCHC 31.4 L (32.0-36.0) g/dL RDW Std Deviation 57.3 H (36.4-46.3) fL RDW Coeff of Perez 21.1 H (11.5-14.5) % Plt Count 173 (130-400) K/uL MPV 9.3 L (9.4-12.4) fL Immature Gran % (Auto) 0.5 % Neut % (Auto) 73.6 % Lymph % (Auto) 14.9 % [place] % (Auto) 6.0 % Eos % (Auto) 4.6 % Baso % (Auto) 0.4 % Neut # (Auto) 5.41 (1.40-6.50) K/uL Lymph # (Auto) 1.10 L (1.20-3.40) K/uL [place] # (Auto) 0.44 (0.11-0.59) K/uL Eos # (Auto) 0.34 (0.00-0.50) K/uL Baso # (Auto) 0.03 (0.00-0.20) K/uL Immature Gran # (Auto) 0.04 (0.01-0.20) K/uL Polychromasia Hypochromasia Present Anisocytosis Present Microcytosis Sodium 141 (136-145) mmol/L Potassium 3.5 (3.5-5.1) mmol/L Chloride 112 H (98-107) mmol/L Carbon Dioxide 23 (21-32) mmol/L Anion Gap 6 (3-11) BUN 41 H (6-23) mg/dl Creatinine 1.60 H D (0.6-1.4) mg/dl Est Cr Clr Drug Dosing 37.4 ml/min Est GFR ( Amer) 46.1 ml/min Est GFR (Non-Af Amer) 39.8 ml/min BUN/Creatinine Ratio 25.6 H (10-20) Glucose 114 H (70-99(Fasting)) mg/dl POC Glucose 124 H 141 H (70-99) mg/dl Estimat Average Glucose 137 mg/dl Hemoglobin A1c 6.4 H (4.5-5.6) % Lactate (0.4-2.0) mmol/L Calcium 8.3 L (8.6-10.3) mg/dl Phosphorus 2.3 L (2.5-4.9) mg/dl Magnesium 2.0 (1.7-2.4) mg/dl Total Bilirubin 1.4 H (0.2-1.0) mg/dl Direct Bilirubin (0-0.2) mg/dl AST 16 (13-39) U/L ALT 12 (7-52) U/L Alkaline Phosphatase 83 (34-104) U/L Troponin I High Sens (0-20) pg/ml Total Protein 5.4 L D (6.0-8.3) gm/dl Albumin 3.0 L (3.4-5.0) gm/dl Globulin 2.4 L (2.5-4.0) gm/dl Albumin/Globulin Ratio 1.3 (0.9-2) Lipase (11-82) U/L Urine Color Urine Appearance (Clear) Urine pH (4.5-7.5) Ur Specific [place] (1.000-1.030) Urine Protein (Negative) Urine Glucose (UA) (Negative) Urine Ketones (Negative) Urine Blood (Negative) Urine Nitrite (Negative) Urine Bilirubin (Negative) Urine Urobilinogen (Negative) Ur Leukocyte Esterase (Negative) Urine WBC (Auto) (0-5) /hpf Urine RBC (Auto) (0-2) /hpf U Hyaline Cast (Auto) (0-2) /lpf U Epithel Cells (Auto) (0-2) /hpf Urine Bacteria (Auto) (None Seen) 05/13/24 05/13/24 05/13/24 Range/Units 19:08 16:41 15:45 WBC (4.8-10.8) K/ul RBC (4.70-6.10) M/uL Hgb (14.0-18.0) g/dl Hct (42.0-52.0) % MCV (80.0-100.0) fL MCH (25.0-34.0) pg MCHC (32.0-36.0) g/dL RDW Std Deviation (36.4-46.3) fL RDW Coeff of Perez (11.5-14.5) % Plt Count (130-400) K/uL MPV (9.4-12.4) fL Immature Gran % (Auto) % Neut % (Auto) % Lymph % (Auto) % [place] % (Auto) % Eos % (Auto) % Baso % (Auto) % Neut # (Auto) (1.40-6.50) K/uL Lymph # (Auto) (1.20-3.40) K/uL [place] # (Auto) (0.11-0.59) K/uL Eos # (Auto) (0.00-0.50) K/uL Baso # (Auto) (0.00-0.20) K/uL Immature Gran # (Auto) (0.01-0.20) K/uL Polychromasia Hypochromasia Anisocytosis Microcytosis Sodium (136-145) mmol/L Potassium (3.5-5.1) mmol/L Chloride (98-107) mmol/L Carbon Dioxide (21-32) mmol/L Anion Gap (3-11) BUN (6-23) mg/dl Creatinine (0.6-1.4) mg/dl Est Cr Clr Drug Dosing ml/min Est GFR ( Amer) ml/min Est GFR (Non-Af Amer) ml/min BUN/Creatinine Ratio (10-20) Glucose (70-99(Fasting)) mg/dl POC Glucose (70-99) mg/dl Estimat Average Glucose mg/dl Hemoglobin A1c (4.5-5.6) % Lactate 2.0 (0.4-2.0) mmol/L Calcium (8.6-10.3) mg/dl Phosphorus (2.5-4.9) mg/dl Magnesium (1.7-2.4) mg/dl Total Bilirubin (0.2-1.0) mg/dl Direct Bilirubin (0-0.2) mg/dl AST (13-39) U/L ALT (7-52) U/L Alkaline Phosphatase (34-104) U/L Troponin I High Sens 25.8 H (0-20) pg/ml Total Protein (6.0-8.3) gm/dl Albumin (3.4-5.0) gm/dl Globulin (2.5-4.0) gm/dl Albumin/Globulin Ratio (0.9-2) Lipase (11-82) U/L Urine Color Dark Yellow Urine Appearance Clear (Clear) Urine pH 5.0 (4.5-7.5) Ur Specific [place] 1.023 (1.000-1.030) Urine Protein 1+ H (Negative) Urine Glucose (UA) Negative (Negative) Urine Ketones 1+ H (Negative) Urine Blood Negative (Negative) Urine Nitrite Negative (Negative) Urine Bilirubin Negative (Negative) Urine Urobilinogen Negative (Negative) Ur Leukocyte Esterase Trace H (Negative) Urine WBC (Auto) 0-5 (0-5) /hpf Urine RBC (Auto) 0-2 (0-2) /hpf U Hyaline Cast (Auto) 11-20 H (0-2) /lpf U Epithel Cells (Auto) 3-5 H (0-2) /hpf Urine Bacteria (Auto) None Seen (None Seen) 05/13/24 05/13/24 05/13/24 Range/Units 14:05 13:10 12:10 WBC 16.00 H (4.8-10.8) K/ul RBC 5.13 (4.70-6.10) M/uL Hgb 12.5 L (14.0-18.0) g/dl Hct 40.8 L (42.0-52.0) % MCV 79.5 L (80.0-100.0) fL MCH 24.4 L (25.0-34.0) pg MCHC 30.6 L (32.0-36.0) g/dL RDW Std Deviation 58.4 H (36.4-46.3) fL RDW Coeff of Perez 21.6 H (11.5-14.5) % Plt Count 254 (130-400) K/uL MPV 9.6 (9.4-12.4) fL Immature Gran % (Auto) 0.4 % Neut % (Auto) 91.9 % Lymph % (Auto) 3.1 % [place] % (Auto) 4.4 % Eos % (Auto) 0.0 % Baso % (Auto) 0.2 % Neut # (Auto) 14.72 H (1.40-6.50) K/uL Lymph # (Auto) 0.49 L (1.20-3.40) K/uL [place] # (Auto) 0.70 H (0.11-0.59) K/uL Eos # (Auto) 0.00 (0.00-0.50) K/uL Baso # (Auto) 0.03 (0.00-0.20) K/uL Immature Gran # (Auto) 0.06 (0.01-0.20) K/uL Polychromasia 1+ Hypochromasia Present Anisocytosis Present Microcytosis Present Sodium 141 (136-145) mmol/L Potassium 4.1 (3.5-5.1) mmol/L Chloride 108 H (98-107) mmol/L Carbon Dioxide 20 L (21-32) mmol/L Anion Gap 13 H (3-11) BUN 43 H (6-23) mg/dl Creatinine 1.90 H (0.6-1.4) mg/dl Est Cr Clr Drug Dosing 31.5 ml/min Est GFR ( Amer) 37.5 ml/min Est GFR (Non-Af Amer) 32.3 ml/min BUN/Creatinine Ratio 22.6 H (10-20) Glucose 197 H (70-99(Fasting)) mg/dl POC Glucose (70-99) mg/dl Estimat Average Glucose mg/dl Hemoglobin A1c (4.5-5.6) % Lactate 2.1 H* (0.4-2.0) mmol/L Calcium 9.8 (8.6-10.3) mg/dl Phosphorus (2.5-4.9) mg/dl Magnesium 2.2 (1.7-2.4) mg/dl Total Bilirubin 2.0 H (0.2-1.0) mg/dl Direct Bilirubin 0.7 H (0-0.2) mg/dl AST 22 (13-39) U/L ALT 19 (7-52) U/L Alkaline Phosphatase 129 H (34-104) U/L Troponin I High Sens 25.1 H 26.4 H (0-20) pg/ml Total Protein 7.8 (6.0-8.3) gm/dl Albumin 4.2 (3.4-5.0) gm/dl Globulin (2.5-4.0) gm/dl Albumin/Globulin Ratio (0.9-2) Lipase 62 (11-82) U/L Urine Color Urine Appearance (Clear) Urine pH (4.5-7.5) Ur Specific [place] (1.000-1.030) Urine Protein (Negative) Urine Glucose (UA) (Negative) Urine Ketones (Negative) Urine Blood (Negative) Urine Nitrite (Negative) Urine Bilirubin (Negative) Urine Urobilinogen (Negative) Ur Leukocyte Esterase (Negative) Urine WBC (Auto) (0-5) /hpf Urine RBC (Auto) (0-2) /hpf U Hyaline Cast (Auto) (0-2) /lpf U Epithel Cells (Auto) (0-2) /hpf Urine Bacteria (Auto) (None Seen)
--- NOTE | 2024-05-14 12:15 | Electrocardiogram Report ---
Test Reason : Blood Pressure : */* mmHG Vent. Rate : 70 BPM Atrial Rate : 70 BPM P-R Int : 334 ms QRS Dur : 136 ms QT Int : 452 ms P-R-T Axes : 87 -57 122 degrees QTcB Int : 488 ms Atrial-paced rhythm with prolonged AV conduction Left atrial enlargement Left axis deviation Left bundle branch block Possible Lateral infarct , age undetermined Inferior infarct , age undetermined Marked ST abnormality, possible anterior subendocardial injury Abnormal ECG When compared with ECG of 11-Mar-2023 15:40, Significant changes have occurred Confirmed by Daniel Carlson ([id number]) on 05/14/2024 12:15:23 PM Referred By: REFERRED SELF Confirmed By: Daniel Carlson
[2024-05-14] MEDS: INSULIN ASPART PER UNIT CHARGE SC SCH (12:53)
--- NOTE | 2024-05-14 16:43 | Hospitalist Progress Note ---
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 He was found to have a high-grade small bowel obstruction with incarcerated umbilical hernia as well as concern for pneumonia. States that for the last week he has been able to keep food down and has been vomiting. States he has not had a bowel movement for some days as well. Denies fevers. States he lives alone and has been trying to stay hydrated. Patient does note a history of hernia repair at around 15 years of age. High-grade small bowel obstruction Incarcerated umbilical hernia Patient presenting with intractable nausea and vomiting CT abdomen pelvis noting high-grade SBO and incarcerated umbilical hernia Stat general surgery consult by the ED, hernia was reduced at bedside N.p.o. NG tube placement per recs of general surgery A.M. KUB IV fluids As needed pain meds and antiemetics Continue to monitor, appreciate further recs from general surgery 05/14 Resolving Status post reduction yesterday by general surgery Continue clear liquid diet for now Advance to soft tomorrow if patient continues to do well Pneumonia, likely aspiration Patient with leukocytosis of 16,000 Lactate elevated (could also be elevated due to possible ischemia from above) Chest x-ray noting pneumonia CT abdomen pelvis also noting pneumonia at the base Consider CT chest for further definition Blood culture pending MRSA nares pending Speech consult Continue with IV Zosyn 05/14 Nasal MRSA negative Continue IV Zosyn Elevated troponin Likely demand ischemia in setting of above Trops flat around 25 EKG noting no acute ischemic changes Continue to monitor on telemetry acute on chronic kidney disease Creatinine elevated at 1.9 Baseline approximately 1.4 Patient on IV fluids in the setting of above avoid nephrotoxic meds as able-Holding home losartan. home Lasix with potassium also on hold in the setting of his persistent nausea/vomiting. resume as able Continue to monitor with a.m. labs crea 1.6 d/c LR Elevated liver enzymes Liver enzymes elevated CT abdomen pelvis noting "unremarkable liver" Continue to trend liver enzymes and consider further workup if increasingly elevated history of prostate cancer Recent diagnosis by urology. patient was recently seen for a cardiology visit on May 12 with his guide for his cardiac issues where he reported the nausea and vomiting. He was advised to continue to hold the Casodex as a possible cause since his symptoms started right after starting this medication. Given that patient was evaluated with noted SBO and incarcerated hernia as likely cause of his nausea and vomiting, will resume Casodex cautiously here. consider reaching out to urology in the a.m. for further recommendations, patient follows with Dr. Regan Alejandro Hx of CAD Hx of v tach s/p pacer defibrillator placement Hx of PAF ischemic cardiomyopathy CHF continue home metoprolol, Plavix, amiodarone, Eliquis Given nausea and vomiting, will hold torsemide with potassium. Resume as able continue to monitor on telemetry continue other home meds as ordered Diet: Currently n.p.o. DVT prophylaxis:On Eliquis Dispo: Admit to [facility] with telemetry Admission and Anticipated Discharge Date Admission Date: May 13, 2024 Subjective Seen sitting up in bed, comfortable, good spirits States he feels better overall No recurrence of abdominal pain, nausea vomiting Tolerating clear liquids diet well Has intermittent nonproductive cough, no shortness of breath, chest pain No fever or chills No other new symptoms Review of Systems Review of Systems: all noted and negative except for above Physical Exam Physical Exam: General- oriented x 3, not in distress, speaks in sentences with no effort or accessory muscle use Eyes- anicteric Neck- no JVD Lungs- Positive mild rhonchi bilaterally, no wheezing Heart- normal rate, regular rhythm; no murmurs Abdomen- normal bowel sounds, nondistended, soft, nontender Extremities- no pretibial edema, no calf tenderness Neuro- alert, oriented x 3; no gross focal neurologic deficits Skin- warm & dry Results & Data Results & Data Vital Signs (Past 12 Hours) Vital Signs Temp Pulse Pulse Resp BP Pulse Ox O2 Del Method 05/14/24 16:04 36.4 C L 70 16 94/59 L 96 Room Air 05/14/24 14:51 70 05/14/24 12:22 36.7 C 71 16 99/59 L 96 Room Air 05/14/24 08:20 Room Air 05/14/24 07:47 36.7 C 69 18 102/60 95 Room Air 05/14/24 06:55 70 all noted and reviewed including below
[2024-05-14] MEDS: DEXTROSE 50% 50 ML SYRINGE IV PRN (22:41)
[2024-05-15] MEDS: SODIUM CHLORIDE 0.9% 1,000 ML IV SCH (09:41)
--- NOTE | 2024-05-15 18:09 | Hospitalist Progress Note ---
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 He was found to have a high-grade small bowel obstruction with incarcerated umbilical hernia as well as concern for pneumonia. States that for the last week he has been able to keep food down and has been vomiting. States he has not had a bowel movement for some days as well. Denies fevers. States he lives alone and has been trying to stay hydrated. Patient does note a history of hernia repair at around 15 years of age. High-grade small bowel obstruction Incarcerated umbilical hernia Patient presenting with intractable nausea and vomiting CT abdomen pelvis noting high-grade SBO and incarcerated umbilical hernia Stat general surgery consult by the ED, hernia was reduced at bedside N.p.o. NG tube placement per recs of general surgery A.M. KUB IV fluids As needed pain meds and antiemetics Continue to monitor, appreciate further recs from general surgery 05/14 Resolving Status post reduction yesterday by general surgery Continue clear liquid diet for now Advance to soft tomorrow if patient continues to do well 05/15 Resolved Tolerating soft diet well Pneumonia, likely aspiration Patient with leukocytosis of 16,000 Lactate elevated (could also be elevated due to possible ischemia from above) Chest x-ray noting pneumonia CT abdomen pelvis also noting pneumonia at the base Consider CT chest for further definition Blood culture pending MRSA nares pending Speech consult Continue with IV Zosyn 05/14 Nasal MRSA negative Continue IV Zosyn 05/15 Remains on room air Clinically improving Continue Zosyn IV Incentive spirometry, flutter valve Probiotics Elevated troponin Likely demand ischemia in setting of above Trops flat around 25 EKG noting no acute ischemic changes Continue to monitor on telemetry Acute on chronic kidney disease Creatinine elevated at 1.9 Baseline approximately 1.4 Patient on IV fluids in the setting of above avoid nephrotoxic meds as able-Holding home losartan. home Lasix with potassium also on hold in the setting of his persistent nausea/vomiting. resume as able Continue to monitor with a.m. labs crea 1.6 d/c LR BMP pending Elevated liver enzymes Liver enzymes elevated CT abdomen pelvis noting "unremarkable liver" Continue to trend liver enzymes and consider further workup if increasingly elevated History of prostate cancer Recent diagnosis by urology. patient was recently seen for a cardiology visit on May 12 with his rn research for his cardiac issues where he reported the nausea and vomiting. He was advised to continue to hold the Casodex as a possible cause since his symptoms started right after starting this medication. Given that patient was evaluated with noted SBO and incarcerated hernia as likely cause of his nausea and vomiting, will resume Casodex cautiously here. consider reaching out to urology in the a.m. for further recommendations, patient follows with Dr. Regan Alejandro Hx of CAD Hx of Ventricular Tachycardia s/p pacer defibrillator placement Hx of PAF Ischemic cardiomyopathy CHF continue home metoprolol, Plavix, amiodarone, Eliquis Given nausea and vomiting, will hold torsemide with potassium continue to monitor on telemetry continue other home meds as ordered Diet: Currently n.p.o. DVT prophylaxis:On Eliquis Disposition: pending anticipate d/c home when medically stable Admission and Anticipated Discharge Date Admission Date: May 13, 2024 Subjective Seen resting in bed, watching TV, comfortable, in good spirits Very pleasant gentleman States he continues to feel improved overall Denies shortness of breath, has intermittent dry cough but improved No abdominal pain, nausea vomiting, tolerating diet well Positive BMs No other new symptoms Review of Systems Review of Systems: all noted and negative except for above Physical Exam Physical Exam: General- oriented x 3, not in distress, speaks in sentences with no effort or accessory muscle use Eyes- anicteric Neck- no JVD Lungs-Mild rhonchi at the bases, no wheezing, good air entry bilaterally Heart- normal rate, regular rhythm; no murmurs Abdomen- normal bowel sounds, nondistended, soft, nontender Extremities- no pretibial edema, no calf tenderness Neuro- alert, oriented x 3; no gross focal neurologic deficits Skin- warm & dry Results & Data Results & Data Vital Signs (Past 12 Hours) Vital Signs Temp Pulse Pulse Resp BP BP Pulse Ox 05/15/24 16:14 36.4 C L 70 17 93/58 L 95 05/15/24 14:14 71 05/15/24 11:52 36.7 C 107 H 17 103/64 93 05/15/24 07:51 36.7 C 73 17 99/63 L 96 05/15/24 07:01 70 O2 Del Method 05/15/24 16:14 Room Air 05/15/24 14:14 05/15/24 11:52 Room Air 05/15/24 07:51 Room Air 05/15/24 07:01 all noted and reviewed including below
[2024-05-15 19:13] LABS: BUN Creatinine Ratio 20.6 (10-20); Calcium 8.2 mg/dl (8.6-10.3); Creatinine Clr Calc Pharmacy 40.9 ml/min; Est GFR (African American) 46.1 ml/min; Est GFR (Non-African American) 39.8 ml/min; Magnesium 1.9 mg/dl (1.7-2.4); Phosphorus 2.4 mg/dl (2.5-4.9); Potassium 3.5 mmol/L (3.5-5.1)
[2024-05-15] MEDS: ADVANCED PROBIOTIC 625 MG CAPSULE PO SCH (20:32)
[2024-05-16 07:00] LABS: BUN Creatinine Ratio 19.5 (10-20); Calcium 7.9 mg/dl (8.6-10.3); Creatinine Clr Calc Pharmacy 40.3 ml/min; Est GFR (African American) 44.8 ml/min; Est GFR (Non-African American) 38.6 ml/min; Magnesium 1.8 mg/dl (1.7-2.4); Phosphorus 2.6 mg/dl (2.5-4.9); Potassium 3.9 mmol/L (3.5-5.1)
[2024-05-16] MEDS ORDERED: ACETAMINOPHEN 325 MG TAB PO PRN (08:30)
[2024-05-16] MEDS: SODIUM CHLORIDE 0.9% 500 ML IV SCH (14:34)
[2024-05-16 15:40] VITALS: RESP 18
--- NOTE | 2024-05-16 15:56 | Hospitalist Progress Note ---
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 He was found to have a high-grade small bowel obstruction with incarcerated umbilical hernia as well as concern for pneumonia. States that for the last week he has been able to keep food down and has been vomiting. States he has not had a bowel movement for some days as well. Denies fevers. States he lives alone and has been trying to stay hydrated. Patient does note a history of hernia repair at around 15 years of age. High-grade small bowel obstruction Incarcerated umbilical hernia Patient presenting with intractable nausea and vomiting CT abdomen pelvis noting high-grade SBO and incarcerated umbilical hernia Stat general surgery consult by the ED, hernia was reduced at bedside N.p.o. NG tube placement per recs of general surgery A.M. KUB IV fluids As needed pain meds and antiemetics Continue to monitor, appreciate further recs from general surgery 05/14 Resolving Status post reduction yesterday by general surgery Continue clear liquid diet for now Advance to soft tomorrow if patient continues to do well 05/16 Resolved Tolerating soft diet well Pneumonia, likely aspiration Patient with leukocytosis of 16,000 Lactate elevated (could also be elevated due to possible ischemia from above) Chest x-ray noting pneumonia CT abdomen pelvis also noting pneumonia at the base Blood culture : Negative MRSA nares: Negative Speech consult: Recommend regular easy to chew diet aspiration precaution 05/16 Remains on room air Clinically improving Continue Zosyn IV Incentive spirometry, flutter valve Probiotics Borderline hypotension Likely secondary to dehydration secondary to profuse vomiting for at least a week at home Hold diuretics Currently on gentle IV fluids Monitor volume status closely as patient has history of ischemic cardiomyopathy Monitor closely Elevated troponin Likely demand ischemia in setting of above Trops flat around 25 EKG noting no acute ischemic changes Continue to monitor on telemetry Acute on chronic kidney disease Creatinine elevated at 1.9 Baseline approximately 1.4 Patient on IV fluids in the setting of above avoid nephrotoxic meds as able-Holding home losartan. home Lasix with potassium also on hold in the setting of his persistent nausea/vomiting. resume as able Remains at 1.6 Continue with gentle IV fluids Elevated liver enzymes Liver enzymes elevated CT abdomen pelvis noting "unremarkable liver" Continue to trend liver enzymes and consider further workup if increasingly elevated History of prostate cancer Recent diagnosis by urology. patient was recently seen for a cardiology visit on May 12 with his airplane flight attendant for his cardiac issues where he reported the nausea and vomiting. He was advised to continue to hold the Casodex as a possible cause since his symptoms started right after starting this medication. Given that patient was evaluated with noted SBO and incarcerated hernia as likely cause of his nausea and vomiting, will resume Casodex cautiously here. Tolerating Casodex so far Patient to have PET scan today but has been rescheduled by nurse coordinator Rg Hoffman for next week Please provide patient with PET scan appointment for next week Hx of CAD Hx of Ventricular Tachycardia s/p pacer defibrillator placement Hx of PAF Ischemic cardiomyopathy CHF continue home metoprolol, Plavix, amiodarone, Eliquis Given nausea and vomiting, will hold torsemide with potassium continue to monitor on telemetry continue other home meds as ordered Diet: Currently n.p.o. DVT prophylaxis:On Eliquis Disposition: pending anticipate d/c home when medically stable Admission and Anticipated Discharge Date Admission Date: May 13, 2024 Subjective Follow-up for small bowel obstruction, secondary to incarcerated umbilical hernia, aspiration pneumonia, etc. Seen resting bedside chair, comfortable, in good spirits Very pleasant States he continues to feel better overall No recurrence of abdominal pain, nausea or vomiting Tolerating diet well States breathing is fine, no cough, shortness of breath Ambulated in the hallways with no shortness of breath No other new symptom Review of Systems Review of Systems: all noted and negative except for above Physical Exam Physical Exam: General- oriented x 3, not in distress, speaks in sentences with no effort or accessory muscle use Eyes- anicteric Neck- no JVD Lungs- clear breath sounds bilaterally, no rales/wheezes Heart- normal rate, regular rhythm; no murmurs Abdomen- normal bowel sounds, nondistended, soft, nontender Extremities- Mild right lower extremity edema, no erythema/warmth/tenderness Neuro- alert, oriented x 3; no gross focal neurologic deficits Skin- warm & dry Results & Data Results & Data Vital Signs (Past 12 Hours) Vital Signs Temp Pulse Pulse Pulse Pulse Resp Resp 05/16/24 15:40 36.7 C 66 18 05/16/24 13:51 92 H 70 19 05/16/24 07:30 70 05/16/24 07:22 36.9 C 73 18 Resp BP Pulse Ox Pulse Ox Pulse Ox O2 Del Method 05/16/24 15:40 114/69 94 Room Air 05/16/24 13:51 15 94 97 05/16/24 07:30 05/16/24 07:22 102/54 L 94 Room Air all noted and reviewed including below
--- NOTE | 2024-05-16 21:38 | Ultrasound Report ---
ULTRASOUND RIGHT LOWER EXTREMITY VENOUS CLINICAL HISTORY: Right leg swelling. COMPARISON STUDY: No priors. TECHNIQUE: Real-time, grayscale, and color Doppler sonography of the deep veins of the right lower ex tremity was performed from the inguinal crease to the calf. Compression and augmentation were utilize d. FINDINGS: There is no sonographic evidence of deep venous thrombosis identified in the right lower ex tremity. The common femoral, superficial femoral, and popliteal veins are patent and normally tawnya sible. The greater saphenous vein and the profunda femoris vein at the junction with the common femor al vein are clear. The visualized calf veins are patent. Soft tissue edema is noted in the right leg. IMPRESSION: There is no sonographic evidence of deep venous thrombosis identified in the right lower extremity. ACT 112: Negative or not required by law. Electronically signed by: Tyler Villarreal M.D. 05/16/2024 9:36 PM
--- NOTE | 2024-05-17 09:48 | Hospitalist Progress Note ---
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 He was found to have a high-grade small bowel obstruction with incarcerated umbilical hernia as well as concern for pneumonia. Patient does note a history of hernia repair at around 15 years of age. High-grade small bowel obstruction Incarcerated umbilical hernia Patient presenting with intractable nausea and vomiting CT abdomen pelvis noting high-grade SBO and incarcerated umbilical hernia Stat general surgery consult by the ED, hernia was reduced at bedside Was managed conservatively with NPO, NGT Diet advanced with good tolerance NG tube placement per recs of general surgery Rectal bleed Patient reported episode last night and this AM Reports dark red blood on wiping and clots. Outpt records showed Colonoscopy in [place] in 2012 during which polypectomies and biopsies were done. Path record not available Hold apixaban Trend CBC. GI consult Defer initially planned discharge for today Pneumonia, likely aspiration Patient with leukocytosis of 16,000 Lactate elevated (could also be elevated due to possible ischemia from above) Chest x-ray noted basilar pneumonia CT abdomen pelvis also noting pneumonia at the base Blood culture : Negative MRSA nares: Negative Speech consult: Recommend regular easy to chew diet aspiration precaution Currently on zosyn. Deescalated to Unasyn to complete 5 day therapy Borderline hypotension Likely secondary to dehydration secondary to profuse vomiting for at least a week at home Holding diuretics Hypotension resolved so far Elevated troponin Likely demand ischemia in setting of above Trops flat around 25 EKG noting no acute ischemic changes Continue to monitor on telemetry Acute on chronic kidney disease Creatinine elevated at 1.9 on admission Baseline approximately 1.4 Got IVF Avoid nephrotoxic meds as able Home losartan currently on hold Hyperbilirubinemia TBil was 2 on admission, improved to 1.[address] abdomen pelvis noted "unremarkable liver" History of prostate cancer Recent diagnosis by urology. patient was recently seen for a cardiology visit on May 12 with his vehicle inspector for his cardiac issues where he reported the nausea and vomiting. He was advised to continue to hold the Casodex as a possible cause since his symptoms started right after starting this medication. Casodex resumed once SBO rsolved Tolerating Casodex so far Patient to have PET scan on 05/16/24 but has been rescheduled by nurse coordinator Rg Hoffman for next week Please provide patient with PET scan appointment for next week Hx of CAD Hx of Ventricular Tachycardia s/p pacer defibrillator placement Hx of PAF Ischemic cardiomyopathy CHF Continue home metoprolol, Plavix, amiodarone Eliquis held for now as above Home furosemide and potassium on hold for now Continue to monitor on telemetry Continue other home meds as ordered Diet: Currently n.p.o. DVT prophylaxis:Held as above Disposition: Anticipate d/c home when medically stable I spent a total of 55 minutes coordinating, documenting and providing care for this patient excluding time spent in performance of separately billed services Admission and Anticipated Discharge Date Admission Date: May 13, 2024 Subjective Patient seen and examined Reports dark red blood in stool with clots on wiping after moving BM this AM He also reported bloody BM last night Denied any abd pain, nausea, vomiting, hematemesis Denied dizziness, palpitation, chest pain Reports cough, dry. No worsening of chronic RECIO Denied fever, chills, dysuria, freq, urgency Physical Exam Constitutional: + well hydrated; no acute distress Eyes: PERRL, conjunctivae normal, anicteric sclerae ENMT: external ear and nose normal, oropharynx normal Respiratory: On room air, no resp distress, diminished breath sound lung bases. No crackles Cardiovascular: Rate/Rhythm: regular rate and regular rhythm Gastrointestinal (Abdomen): normal bowel sounds, soft, nontender, no hepatosplenomegaly Musculoskeletal: Trace pedal edema Neurologic: PERRL, EOMI, accommodation nl, no face palsy, no dysarthria Psychiatric: A+Ox3, euthymic affect Results & Data Results & Data Vital Signs (Past 12 Hours) Vital Signs Temp Pulse Pulse Resp BP BP Pulse Ox 05/17/24 07:43 36.9 C 58 L 18 126/76 93 05/17/24 07:14 68 05/17/24 03:25 72 05/17/24 02:48 36.7 C 74 18 115/60 96 05/16/24 22:26 36.7 C 69 18 112/70 95 O2 Del Method 05/17/24 07:43 Room Air 05/17/24 07:14 05/17/24 03:25 05/17/24 02:48 Room Air 05/16/24 22:26 Room Air Laboratory Results Abnormal lab results 05/16/24 05/16/24 05/16/24 Range/Units 12:18 17:14 20:08 RBC (4.70-6.10) M/uL Hgb (14.0-18.0) g/dl Hct (42.0-52.0) % MCV (80.0-100.0) fL MCH (25.0-34.0) pg MCHC (32.0-36.0) g/dL RDW Std Deviation (36.4-46.3) fL RDW Coeff of Perez (11.5-14.5) % POC Glucose 187 H 111 H 104 H (70-99) mg/dl 05/17/24 05/17/24 Range/Units 08:13 09:42 RBC 4.26 L (4.70-6.10) M/uL Hgb 10.4 L (14.0-18.0) g/dl Hct 33.2 L (42.0-52.0) % MCV 77.9 L (80.0-100.0) fL MCH 24.4 L (25.0-34.0) pg MCHC 31.3 L (32.0-36.0) g/dL RDW Std Deviation 60.2 H (36.4-46.3) fL RDW Coeff of Perez 22.2 H (11.5-14.5) % POC Glucose 123 H (70-99) mg/dl
[2024-05-17 10:02] LABS: Hematocrit (blood only) 33.2 % (42.0-52.0); Hemoglobin 10.4 g/dl (14.0-18.0); Mean Corpuscular Hemoglobin 24.4 pg (25.0-34.0); Mean Corpuscular Hgb Conc 31.3 g/dL (32.0-36.0); Mean Corpuscular Volume 77.9 fL (80.0-100.0); Mean Platelet Volume 10.3 fL (9.4-12.4); Platelet Count 184 K/uL (130-400); RDW Coefficient of Variation 22.2 % (11.5-14.5); RDW Standard Deviation 60.2 fL (36.4-46.3); Red Blood Count 4.26 M/uL (4.70-6.10); White Blood Count 6.78 K/ul (4.8-10.8)
[2024-05-17 10:39] LABS: BUN Creatinine Ratio 14.5 (10-20); Calcium 8.6 mg/dl (8.6-10.3); Creatinine Clr Calc Pharmacy 41.9 ml/min; Est GFR (African American) 46.5 ml/min; Est GFR (Non-African American) 40.1 ml/min; Potassium 4.4 mmol/L (3.5-5.1)
--- NOTE | 2024-05-17 11:17 | Gastrointestinal Consultation ---
Date of Consultation May 17, 2024 Assessment & Plan (1) Rectal bleeding: -Continue to monitor H/H -Continue to monitor for overt GI bleeding -Patient's bleeding is improving. He currently has aspiration pneumonia & has received Eliquis today. Will plan for colonoscopy as an outpatient unless patien t decompensates. Supervising Physician Co-Signing Physician Notes I examined the patient and reviewed patient's chart , laboratory data and imaging studies. I agree with with assessment and plan of care as suggested by advanced practice provider. Minor rectal bleeding. The patient is on Eliquis. Plavix was administered 2 days ago on 05/14. Outpatient colonoscopy will be arranged. History of Present Illness Reason for Consultation: GI/Rectal bleeding Attending Physician: Alayna Otero MD History of Present Illness Patient is an 83 yo male hospitalized currently due to a high grade SBO due to an incarcerated umbilical hernia. He was evaluated by surgery earlier in the admission and they have signed off for discharged due to his improvement without surgical intervention. GI has been consulted because last evening, the patient developed BRBPR. He notes he had been struggling with constipation, but has no known hemorrhoids per his reports. He notes that there was a significant volume of bright red blood. He notes his last colonoscopy was in 2012 and he thinks he was told that he didn't need to repeat further. This was done at [facility] per his reports. He notes that after I palpated his abdomen this AM he now feels like he needs to move his bowels. Last CT imaging was at the time of the high grade obstruction but more recent KUB unremarkable with the exception of his imaging findings concerning for an aspiration pneumonia for which he is being treated. Hemoglobin was 12.5, decreased to 9.3, then increased to 10.4. Current H/H 10.4/33.2. He denies any abdominal pain at present. Patient takes Eliquis & Plavix at home. Allergies Allergy/AdvReac Type Severity Reaction Status Date / Time lisinopril AdvReac Mild COUGHING Verified 12/09/21 14:12 Home Medications Medication Instructions Recorded Confirmed Type amiodarone 200 mg tablet 200 mg PO DAILY 03/11/23 05/13/24 History cholecalciferol (vitamin D3) 50 50 mcg PO DAILY 03/11/23 05/13/24 History mcg (2,000 unit) capsule (Vitamin D3) furosemide 20 mg tablet 40 mg PO DAILY 03/11/23 05/13/24 History losartan 50 mg tablet 25 mg PO BID 03/11/23 05/13/24 History potassium chloride 10 mEq 10 meq PO DAILY 03/11/23 05/13/24 History capsule,extended release tamsulosin 0.4 mg capsule 0.4 mg PO DAILY #90 caps 07/29/23 05/13/24 Rx apixaban 2.5 mg tablet 2.5 mg PO BID 05/13/24 05/13/24 History bicalutamide 50 mg tablet (Casodex) 50 mg PO DAILY 05/13/24 05/13/24 History clopidogrel 75 mg tablet 75 mg PO QAM 05/13/24 05/13/24 History erythromycin 5 mg/gram (0.5 %) eye 0.25 inch ophthalmic (eye) QID 05/13/24 05/13/24 History ointment levothyroxine 112 mcg tablet 112 mcg PO DAILY 05/13/24 05/13/24 History metoprolol succinate 50 mg 50 mg PO BID 05/13/24 05/13/24 History tablet,extended release 24 hr Patient History Medical History 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 Phlebitis/thrombophlebitis Surgical History AICD present, double chamber Family History Brother V-tach required AICD Social History Smoking Status: Never smoker Do You Dip or Chew Tobacco: No; Hx Alcohol Use: No Hx Substance Use: No Preferred Language: Sudanese Communication Ability: Effective Hat Liner Required: No Beliefs That Will Affect Care: None marital status: Single Current Living Situation: Alone Current Living Situation Comment: home alone, daughter lives 12 miles away current occupational status: retired Other Information That Helps Us Care for You: No Feels Safe at Home: Yes Safety Concerns: Feels Safe At This Time Assistive Devices: Walker Review of Systems Constitutional: no fever and no chills Gastrointestinal: + constipation and + blood in stools; no abdominal pain and no diarrhea/loose stools Psychiatric: no problem reported Physical Exam Constitutional: well developed Respiratory: normal respiratory effort Gastrointestinal (Abdomen): Inspection/Auscultation: normal bowel sounds; abdomen not distended Percussion/Palpation: abdomen soft; abdomen nontender Psychiatric: Orientation: alert and oriented x 3 Results & Data Vital Signs (Past 12 Hours) Vital Signs Temp Pulse Pulse Resp BP BP Pulse Ox 05/17/24 07:43 36.9 C 58 L 18 126/76 93 05/17/24 07:14 68 05/17/24 03:25 72 05/17/24 02:48 36.7 C 74 18 115/60 96 O2 Del Method 05/17/24 07:43 Room Air 05/17/24 07:14 05/17/24 03:25 05/17/24 02:48 Room Air PG Care Time/CCT Total # of Minutes Spent Total Time Spent with Patient: Total time spent is greater than 50% in coordination of care (as documented) at patient's floor/unit and/or counseling patient: Coding Level of Care Code 33592 INT INP/OBS CARE 3/75MIN Diagnoses Rectal bleeding K62.5
[2024-05-17] MEDS ORDERED: AMPICILLIN SOD/SULBACTAM SOD 3 GM VIAL IV SCH (16:00)
[2024-05-17 16:47] LABS: Mean Corpuscular Hemoglobin 24.7 pg (25.0-34.0); Mean Corpuscular Hgb Conc 32.1 g/dL (32.0-36.0); Mean Corpuscular Volume 76.9 fL (80.0-100.0); Mean Platelet Volume 10.6 fL (9.4-12.4); Platelet Count 162 K/uL (130-400); RDW Coefficient of Variation 21.6 % (11.5-14.5); RDW Standard Deviation 57.9 fL (36.4-46.3); Red Blood Count 3.64 M/uL (4.70-6.10); White Blood Count 5.75 K/ul (4.8-10.8)
[2024-05-17] MEDS: AMPICILLIN/SULBACTAM SOD 3,000 MG/100 ML BAG IV SCH (16:58)
[2024-05-17 22:52] LABS: Hematocrit (blood only) 28.7 % (42.0-52.0); Hemoglobin 9.3 g/dl (14.0-18.0); Mean Corpuscular Hemoglobin 24.7 pg (25.0-34.0); Mean Corpuscular Hgb Conc 32.4 g/dL (32.0-36.0); Mean Corpuscular Volume 76.3 fL (80.0-100.0); Mean Platelet Volume 9.8 fL (9.4-12.4); Platelet Count 151 K/uL (130-400); RDW Coefficient of Variation 21.6 % (11.5-14.5); RDW Standard Deviation 57.7 fL (36.4-46.3); Red Blood Count 3.76 M/uL (4.70-6.10); White Blood Count 6.16 K/ul (4.8-10.8)
[2024-05-18 08:38] LABS: Hemoglobin 9.1 g/dl (14.0-18.0); Mean Corpuscular Hemoglobin 24.7 pg (25.0-34.0); Mean Corpuscular Hgb Conc 32.5 g/dL (32.0-36.0); Mean Corpuscular Volume 75.9 fL (80.0-100.0); Platelet Count 155 K/uL (130-400); RDW Coefficient of Variation 21.5 % (11.5-14.5); RDW Standard Deviation 56.5 fL (36.4-46.3); Red Blood Count 3.69 M/uL (4.70-6.10); White Blood Count 6.51 K/ul (4.8-10.8)
[2024-05-18 12:06] VITALS: PULSE 71; TEMP 98.4; O2SAT 97
--- NOTE | 2024-05-18 12:15 | Discharge Summary ---
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 He was found to have a high-grade small bowel obstruction with incarcerated umbilical hernia as well as concern for pneumonia. States that for the last week he has been able to keep food down and has been vomiting. States he has not had a bowel movement for some days as well. notes that he vomits about 10 episodes daily has a hard time keeping food down as well as liquids. States he is also having abdominal pain. Denies fevers. States he lives alone and has been trying to stay hydrated. Patient does note a history of hernia repair at around 15 years of age In terms of abdominal surgeries. Chart review shows that he was recently diagnosed with prostate cancer after biopsy for elevated PSA. Was started on Casodex. Did have a follow-up with his laboratory operations coordinator for his cardiac issues yesterday where he reported the nausea and vomiting. He was advised to continue to hold the Casodex as a possible cause. Admission Exam Per Admitting Provider General: Alert, oriented. No acute distress at time of exam Psych: Appropriate mood and affect HEENT: NC/AT, left eye with inturned eyelashes CV: surgical scar on chest, RRR Resp: Breath sounds clear bilaterally, no increased effort of breathing. Abdomen: Soft, nontender during this exam after hernia reduction Extremities: edema in lower extremities bilaterally. Principal Diagnosis Small bowel obstruction Aspiration pneumonia Discharge Exam Constitutional + well hydrated; no acute distress Eyes PERRL, conjunctivae normal, anicteric sclerae ENMT external ear and nose normal, oropharynx normal Respiratory On room air, no resp distress, diminished breath sound lung bases. No crackles Cardiovascular Rate/Rhythm: regular rate and regular rhythm Gastrointestinal (Abdomen) normal bowel sounds, soft, nontender, no hepatosplenomegaly Musculoskeletal Mild pedal edema Neurologic PERRL, EOMI, accommodation nl, no face palsy, no dysarthria Psychiatric A+Ox3, euthymic affect Discharge Data Allergies Allergy/AdvReac Type Severity Reaction Status Date / Time lisinopril AdvReac Mild COUGHING Verified 12/09/21 14:12 Consultations 05/13/24 14:01 ED Decision to Admit Stat 05/13/24 21:47 Consult General Surgery Routine 05/17/24 09:46 Consult Gastroenterology Routine Ordered Studies 05/13/24 12:00 CT abd pelvis wo con Stat 05/16/24 13:38 US venous doppler LE RT Routine Hospital Course (1) Small bowel obstruction: (2) Incarcerated umbilical hernia: Plan 83yo male with a PMHx significant for non sustained v tach s/p pacer defibrillator placement on 02/14/2019, CAD (h/o CABG x3 in 2016), HTN, DM II, ischemic cardiomyopathy, CHF, vertebral artery stenosis, PAD, hypothyroidism, BHUPINDER noncompliant with CPAP, 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 He was found to have a high-grade small bowel obstruction with incarcerated umbilical hernia as well as concern for pneumonia. Patient does note a history of hernia repair at around 15 years of age. High-grade small bowel obstruction Incarcerated umbilical hernia Patient presented with intractable nausea and vomiting CT abdomen pelvis noting high-grade SBO and incarcerated umbilical hernia Stat general surgery consult by the ED, hernia was reduced at bedside Was managed conservatively with NPO, NGT Diet advanced with good tolerance Had rectal bleed yesterday Outpt records showed Colonoscopy in [place] in 2012 during which polypectomies and biopsies were done. Path record not available GI evaluated and recommended outpatient colonoscopy Patient reports improvement in bleed. Only noted mild blood stain when wiping today Serial Hb remained stable PCP to monitor CBC and any more bleeding at home as patient is on anticoagulation Pneumonia, likely aspiration Patient with leukocytosis of 16,000 on admission Lactate elevated (could also be elevated due to possible ischemia from above) Chest x-ray noted basilar pneumonia CT abdomen pelvis also noting pneumonia at the base Blood culture : Negative MRSA nares: Negative Completed antibiotics inpation Borderline hypotension Home losartan has been on hold due to hypotension BP currently normal. Losartan discontinue on discharge PCP to monitor Elevated troponin Likely demand ischemia in setting of above Trops flat around 25 EKG noted no acute ischemic changes Acute on chronic kidney disease Creatinine elevated at 1.9 on admission Baseline approximately 1.4 Got IVF Avoid nephrotoxic meds as able Losartan stopped as above Cr improved to 1.59 Hyperbilirubinemia TBil was 2 on admission, improved to 1.[address] abdomen pelvis noted "unremarkable liver" History of prostate cancer Recent diagnosis by urology. patient was recently seen for a cardiology visit on May 12 with his laboratory operations coordinator for his cardiac issues where he reported the nausea and vomiting. He was advised to continue to hold the Casodex as a possible cause since his symptoms started right after starting this medication. Casodex resumed once SBO rsolved Tolerating Casodex so far Patient to have PET scan on 05/16/24 but has been rescheduled to next week Hx of CAD Hx of Ventricular Tachycardia s/p pacer defibrillator placement Hx of PAF Ischemic cardiomyopathy CHF Continue home metoprolol, Plavix, amiodarone Continue eliquis, diuretic Total Time Total Time Spent Total Time Spent (In Minutes): 35 Total Time Includes: Examination of the Patient, Discharge Planning and Medication Reconciliation Discharge Plan Discharge Items Patient Disposition: Home - Home Health Services Reason For Visit: SBO Discharge Diagnosis: Small bowel obstruction Aspiration pneumonia Activity: Resume your previous activity Non-emergency contact: Primary Care Provider and Parks Recreation Director Call non-emergency contact if: you have any medication questions and your symptoms worsen Follow-up/Referrals: [facility] Radiology [Other] (Date & Time 05/23/2024 10:45 AM Provider [facility] PET Scan Radiology [address] *Please arrive at 10:30am ) Paris Murray PA-C [Physician Field Crop Farmer] - Sandra Judge MD [Primary Care Provider] - (Date & Time 05/24/2024 11:00 AM Provider Rosanna Mittal PA-C Department Family Medicine [facility] ) Diet: Heart Healthy and Low Sodium (2gm) Addtl Attending Provider Instructions: Mr Garcia You were admitted and managed for the above listed diagnoses. You are being discharged home. Please stop taking losartan for now due to low blood pressure. Please ensure follow up with your Primary Doctor. Please ensure follow up with Gastroenterology for arrangement of colonoscopy as we discussed. Your PET scan was rescheduled to next week. It was a pleasure taking care of you. Pending Studies at Discharge: No Stand-Alone Forms: My [facility], Smoking Cessation Medications and DC Order Prescriptions: New guaifenesin 200 mg tablet 200 mg PO Q6H PRN (Reason: cough) Qty: 20 0RF Continued tamsulosin 0.4 mg capsule 0.4 mg PO DAILY Qty: 90 3RF potassium chloride 10 mEq Capsule, Extended Release 10 meq PO DAILY amiodarone 200 mg Tablet 200 mg PO DAILY furosemide 20 mg Tablet 40 mg PO DAILY cholecalciferol (vitamin D3) [Vitamin D3] 50 mcg (2,000 unit) Capsule 50 mcg PO DAILY Rx Instructions: Unable to verify OTC meds at this date/time. clopidogrel 75 mg tablet 75 mg PO QAM bicalutamide [Casodex] 50 mg Tablet 50 mg PO DAILY metoprolol succinate 50 mg Tablet Extended Release 24 Hr 50 mg PO BID erythromycin 5 mg/gram (0.5 %) Ointment 0.25 inch OPHTHALMIC (EYE) QID levothyroxine 112 mcg Tablet 112 mcg PO DAILY apixaban 2.5 mg Tablet 2.5 mg PO BID Discontinued losartan 50 mg Tablet 25 mg PO BID Discharge Orders: Discharge Order (Routine); Ordered 05/18/24 Ordered By: Alayna Otero Admission Data Admit Date/Time: 05/13/24 15:37 Attending Provider: Alayna Otero I. Admit Provider: Malena Chung Primary Care Provider: Sandra Judge Other Providers: Malena Chung; Balta Alejandro; Mykel Couch; Audie Byrne; IRB Approved Study,Bradly Headley [facility] Other Interventions: Discharge Summary Assessment (RN) Last Done: 05/18/24 12:26
[2024-05-18 12:29] VITALS: BP 109/64
== END 2024-05-18 14:15 | disposition home health service (06) | DRG 393 ==
LOC: ED 11:33 → 2W 15:37 → SUATTDRO 15:37 → 2W 17:35

== ENCOUNTER 2024-09-04 14:16 | Inpatient (IN) ==
--- NOTE | 2024-09-04 14:47 | Emergency Department Note ---
Impression & Plan Acute dyspnea, Acute hypoxemic respiratory failure, Acute exacerbation of CHF (congestive heart failure), Non-ST elevation WA (NSTEMI), Elevated brain natriuretic peptide (BNP) level, Sepsis, Pulmonary edema ED Provider Note HISTORY OF PRESENT ILLNESS: Patient is an 84-year-old male presenting with shortness of breath and feeling unwell. Patient reports he has been having progressively worsening shortness of breath all weekend and has not felt well, and states that today his symptoms are worse. He went to the cancer center to get one of his last treatments for his prostate cancer and he appeared cyanotic and minimally responsive so they sent him to the ER for evaluation. On arrival, the patient reports he has been feeling generally unwell all weekend but seems more short of breath today. He denies any chest pain, but does report he has had a history of a CABG. Denies any known fevers at home. He denies any abdominal pain, nausea or vomiting. He does report that his lower abdomen "seems hard." He reports he has not had a normal bowel movement in a few days. He is on Eliquis daily. He has a history of a maker/defibrillator in place. ROS: as above PHYSICAL EXAM: Constitutional: Patient appears in mild distress. Patient has cyanotic lips. HENT: Head: Normocephalic and atraumatic. Eyes: EOMI, PERRL Mouth/Throat: Mucous membranes moist. Neck: Trachea midline. Neck supple. Cardiovascular: Paced rhythm. No murmurs, rubs or gallops. Intact distal pulses. Pulmonary/Chest: Breath sounds clear and equal bilaterally. No wheezes or rales. On 4L nasal cannula. Conversationally dyspneic. Abdominal: Abdomen soft, no tenderness, rebound or guarding. Musculoskeletal: No tenderness or deformity noted. +3 pitting edema of bilateral lower extremities extending to knees Skin: Warm and dry. No rash, erythema, pallor or cyanosis Psychiatric: Appropriate mood and affect for situation. Neurological: Alert and keenly responsive. CN II-XII grossly intact, moving all extremities equally and fully. MDM: - Vitals signs showed hypoxia and tachypnea. Patient placed on 4L NC. - History obtained via patient. History as above. - Chronic conditions affecting care: CAD (S/p CABG); HTN; HLD; DM-2; BHUPINDER prostate cancer - Differential diagnoses include, but are not limited to: Congestive heart failure; acute coronary syndrome; COPD/asthma exacerbation; pulmonary edema; pulmonary embolism; pneumonia; pneumothorax; viral syndrome - Order placed for continuous cardiac monitoring. At this time, monitor showed rate of 70 bpm with paced rhythm, per my interpretation. - External medical records reviewed. [facility] note dated 06/24/2024 was reviewed. Patient was seen for follow-up for his multiple medical problems. Patient has isolated prostate cancer and was set up for radiation treatment. - EKG interpreted by myself showed paced rhythm. Rate 77 bpm. Noted to have a left bundle branch block would await further testing before taking him to the [facility]. - Discussed case with accounting supervisor, Dr. Laboy, at 15:02. He reports that based on patient's lack of chest pain and history of CABG, - Laboratory workup interpreted by myself showed normal WBC; anemia (Hgb 9.2); elevated INR (1.6); hyponatremia (Na 132); hyperkalemia (K 5.4); elevated anion gap (17); elevated BUN (47); low bicarb (18); VENITA on CKD (Cr 2.85); elevated lactate (8.1); hyperbilirubinemia (2.9); transaminitis (AST 172; ALT 95); NSTEMI (troponin 37.2); elevated BNP (3199); normal lipase; elevated procalcitonin (1.93) - Viral respiratory panel negative - VBG shows only slight acidosis (pH 7.34) - Blood cultures obtained - CXR negative for pneumonia but pulmonary edema, per my interpretation. Radiology notes cardiomegaly with pulmonary edema and small pleural effusions. - Patient given 2g IV cefepime for sepsis antibiotic coverage - Patient given 1L NS. Patient sepsis volume fluid calculation based on ideal body weight is 2181.60 mL. Patient was given 1 L normal saline for fluid resuscitation, given that he is in fluid overload based on his lower extremity edema is on new oxygen requirement. - Though I do think patient meets sepsis criteria, his lactate may be falsely elevated secondary to a prolonged tourniquet time. Did request nursing staff repeat his lactic acid level. - Patient noted to have multiple documented episodes of hypoxia by nursing staff. Did call respiratory to see about putting the patient on CPAP. Patient's forehead pulse ox was malpositioned and his saturations remained 100% with changing position of his forehead pulse ox monitor. He was placed on CPAP by respiratory therapy, and patient does appear more comfortable in terms of work of breathing on the CPAP. - Repeat lactate elevated at 6.3 - Discussion was had with home health care case manager about patient's case and need for admission - Hospitalist consulted for admission - Patient admitted to [facility] service for further evaluation and management. I have personally spent 63 minutes of critical care time in the direct management of this patient. This includes bedside care, interpretation of diagnostic studies, and testing, discussion with consultants, patient, and family members, and other required patient management activities. This 63 minutes is in excess of all separately billable procedures. ASSESSMENT AND PLAN: Diagnosis: Acute dyspnea; acute hypoxic respiratory failure; sepsis; NSTEMI; pulmonary edema; elevated BNP; acute CHF exacerbation Plan: admit Past Med/Surg History Problem List (Updated 09/04/24 @ 17:58 by Macarena Downs PA-C) Acute lactic acidosis Pulmonary edema (Acute) Sepsis (Acute) Elevated brain natriuretic peptide (BNP) level (Acute) Non-ST elevation WA (NSTEMI) (Acute) Acute exacerbation of CHF (congestive heart failure) (Acute) Acute hypoxemic respiratory failure (Acute) Acute dyspnea (Acute) Prostate cancer (Chronic 05/02/24) Rectal bleeding Elevated lactic acid level (Acute) Aspiration pneumonia of left lower lobe (Acute) Small bowel obstruction (Acute) Incarcerated umbilical hernia (Acute) Small bowel obstruction Incarcerated umbilical hernia Elevated prostate specific antigen (PSA) Hypomagnesemia (Acute) VENITA (acute kidney injury) (Acute) Stroke-like symptoms (Acute) Transient vision disturbance of both eyes Peripheral arterial disease Urinary symptom or sign Ventricular tachycardia (Acute) Defibrillator discharge (Acute) History of left shoulder replacement (Chronic) History of inguinal hernia repair (Chronic) "1955" H/O lithotripsy (Chronic) History of right shoulder replacement (Chronic) "2009" History of total right knee replacement (Chronic) "2004 " 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" Chronic anticoagulation (Chronic) 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) Gout (Chronic) Atrial septal aneurysm (Chronic) PFO (patent foramen ovale) (Chronic) BHUPINDER (obstructive sleep apnea) (Chronic) "not on CPAP" DM type 2 (diabetes mellitus, type 2) (Chronic) Dyslipidemia (Chronic) HTN (hypertension) (Chronic) Mitral regurgitation (Chronic) History of cardioembolic stroke (Chronic) Paroxysmal atrial fibrillation (Chronic) "postoperative" Ischemic cardiomyopathy (Chronic) "prior EF 35-40% in August 2008; improved EF 50-54% on 11/24/16 echo" Medical History History of aspiration pneumonia admitted to [facility] 04/2024 Ischemic cardiomyopathy "prior EF 35-40% in August 2008; improved EF 50-54% on 11/24/16 echo" Paroxysmal atrial fibrillation hx--"postoperative" History of cardioembolic stroke ~2016, 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 Mitral regurgitation follows w/ Dr Hyde HTN (hypertension) Dyslipidemia Diabetes mellitus no meds currently BHUPINDER (obstructive sleep apnea) no device PFO (patent foramen ovale) Atrial septal defect Gout Diabetic neuropathy Chronic anticoagulation Hx of renal calculi Hx of ventricular tachycardia Transient vision disturbance of both eyes Peripheral artery disease Rectal bleeding Bowel obstruction (04/2024) recent admission to [facility] DJD of left shoulder Surgical History 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" History of total right knee replacement (2004) History of lithotripsy Hx of inguinal hernia repair (1954) Hx of colonoscopy History of right shoulder replacement (2009) History of left shoulder replacement AICD present, double chamber [employer], implanted 2018 Family History Brother V-tach required AICD Social History Smoking Status: Never smoker Second Hand Exposure: No; Do You Dip or Chew Tobacco: No; Hx Alcohol Use: No Hx Substance Use: No Preferred Language: Omani Communication Ability: Effective Visual Impairment: No Limitations Hearing Ability: Normal Chemistry Tutor Required: No Beliefs That Will Affect Care: None marital status: Single Current Living Situation: Alone Current Living Situation Comment: home alone, daughter lives 12 miles away current occupational status: retired Feels Safe at Home: Yes Diet: regular during the past year weight has: decreased > 10 lbs Assistive Devices: Denture - Upper, Denture - Lower and Walker Allergies Allergies Allergy/AdvReac Type Severity Reaction Status Date / Time lisinopril AdvReac Mild COUGHING Verified 08/13/24 10:59 Home Meds Home Medications Medication Instructions Recorded Confirmed amiodarone 200 mg tablet 200 mg PO QAM 03/11/23 08/28/24 cholecalciferol (vitamin D3) 50 50 mcg PO DAILY 03/11/23 08/28/24 mcg (2,000 unit) capsule (Vitamin D3) furosemide 20 mg tablet 40 mg PO DAILY 03/11/23 08/28/24 potassium chloride 10 mEq 10 meq PO DAILY 03/11/23 08/28/24 capsule,extended release apixaban 2.5 mg tablet 2.5 mg PO BID 05/13/24 08/28/24 bicalutamide 50 mg tablet (Casodex) 50 mg PO DAILY 05/13/24 08/28/24 erythromycin 5 mg/gram (0.5 %) eye 0.25 inch ophthalmic (eye) QID 05/13/24 08/28/24 ointment levothyroxine 112 mcg tablet 112 mcg PO QAM 05/13/24 08/28/24 metoprolol succinate 50 mg 50 mg PO BID 05/13/24 08/28/24 tablet,extended release 24 hr clopidogrel 75 mg tablet (Plavix) 75 mg PO DAILY 07/06/24 08/28/24 Previous Rx's Medication Instructions Recorded tamsulosin 0.4 mg capsule 0.4 mg PO DAILY #90 caps 07/29/23 guaifenesin 200 mg tablet 200 mg PO Q6H PRN cough #20 tabs 05/18/24 degarelix 120 mg subcutaneous 240 mg subcut ONCE #2 ea 07/07/24 solution (Firmagon kit with diluent syringe) degarelix 80 mg subcutaneous 80 mg subcut Q28D #1 ea 07/19/24 solution (Firmagon kit with diluent syringe) degarelix 80 mg subcutaneous 80 mg subcut Q28D #1 ea 08/18/24 solution (Firmagon kit with diluent syringe) Results & Data (ED) Vital Signs Vital Signs - 24 hr 09/04/24 14:36 09/04/24 14:44 09/04/24 15:38 Temperature 36.9 C Temperature Source Oral Pulse Rate 71 68 Pulse Rate [Right Finger] Pulse Rhythm [Right Finger] Pulse Strength [Right Finger] Respiratory Rate 34 H Respiratory Effort / Characteristics Labored Respiratory Depth Respiratory Pattern Blood Pressure 112/64 Blood Pressure [Right Arm] Blood Pressure Mean 80 Blood Pressure Mean [Right Arm] Blood Pressure Position [Right Arm] Pulse Oximetry 100 65 L Oxygen Delivery Method Oxymask Nasal Cannula Oxygen Flow Rate 3.5 Fraction of Inspired Oxygen Sepsis Recent Fever Within 48 Hours No Sepsis New/Unexplained Change in Mental Status No Sepsis Action Taken by Nursing No Action Required Oxygen Flow Rate - Titration 4 Pulse Oximetry Post Tiitration 70 L 09/04/24 15:39 09/04/24 15:57 09/04/24 16:05 Temperature Temperature Source Pulse Rate 70 Pulse Rate [Right Finger] 70 Pulse Rhythm [Right Finger] Regular Pulse Strength [Right Finger] Normal Respiratory Rate 27 H 25 H Respiratory Effort / Characteristics Non-Labored Spontaneous Non-Labored Respiratory Depth Normal Normal Respiratory Pattern Regular Regular Blood Pressure Blood Pressure [Right Arm] 93/73 L Blood Pressure Mean Blood Pressure Mean [Right Arm] 79 Blood Pressure Position [Right Arm] Lying Pulse Oximetry 70 L 100 100 Oxygen Delivery Method Nasal Cannula CPAP Oxygen Flow Rate 4 Fraction of Inspired Oxygen 40 Sepsis Recent Fever Within 48 Hours Sepsis New/Unexplained Change in Mental Status Sepsis Action Taken by Nursing Oxygen Flow Rate - Titration 10 Pulse Oximetry Post Tiitration 100 Laboratory Data 09/04/24 15:07 09/04/24 15:07 Lab Results 09/04/24 09/04/24 09/04/24 Range/Units 15:07 15:07 15:14 WBC 7.52 (4.8-10.8) K/ul RBC 3.42 L (4.70-6.10) M/uL Hgb 9.2 L (14.0-18.0) g/dl POC Hgb 10.9 L (14.0-18.0) g/dl Hct 27.9 L (42.0-52.0) % POC Hct 32 L (42-52) % MCV 81.6 (80.0-100.0) fL MCH 26.9 (25.0-34.0) pg MCHC 33.0 (32.0-36.0) g/dL RDW Std Deviation 65.3 H (36.4-46.3) fL RDW Coeff of Perez 22.7 H (11.5-14.5) % Plt Count 77 L (130-400) K/uL MPV 10.8 (9.4-12.4) fL Immature Gran % (Auto) 0.8 % Neut % (Auto) 87.8 % Lymph % (Auto) 4.4 % [place] % (Auto) 6.9 % Eos % (Auto) 0.0 % Baso % (Auto) 0.1 % Neut # (Auto) 6.60 H (1.40-6.50) K/uL Lymph # (Auto) 0.33 L (1.20-3.40) K/uL [place] # (Auto) 0.52 (0.11-0.59) K/uL Eos # (Auto) 0.00 (0.00-0.50) K/uL Baso # (Auto) 0.01 (0.00-0.20) K/uL Immature Gran # (Auto) 0.06 (0.01-0.20) K/uL Platelet Estimate Decreased L (Normal) Poikilocytosis Present Tear Drop Cells 1+ Acanthocytes (Spur) 1+ PT 16.3 H (9.0-12.0) Seconds INR 1.6 H (0.9-1.1) POC pH (7.35-7.45) POC pCO2 (35-46) mmHg POC pO2 (80-95) mmHg POC HCO3 (19-24) nasim/L POC Base Excess (-9-1.8) nasim/L POC ABG O2 Sat (90-95) % VBG pH 7.34 L (7.36-7.41) VBG pCO2 33 L (38-50) mmHg VBG pO2 28 mmHg VBG HCO3 18 mmol/L VBG O2 Saturation < 60.0 % VBG Base Excess -7.0 mEq/L POC Sodium 132 L (135-144) mmol/L Sodium 132 L (136-145) mmol/L POC Potassium 5.7 H (3.3-5.0) mmol/L Potassium 5.4 H (3.5-5.1) mmol/L POC Chloride 99 L (101-112) mmol/L Chloride 97 L (98-107) mmol/L Carbon Dioxide 18 L (21-32) mmol/L POC Total CO2 18 L (24-31) mmol/L Anion Gap 17 H (3-11) POC Anion Gap 20.0 (16-25) mmol/L POC BUN 52 H (7-18) mg/dl BUN 47 H (6-23) mg/dl Creatinine 2.85 H (0.6-1.4) mg/dl POC Creatinine 3.0 H (0.6-1.3) mg/dl Est Cr Clr Drug Dosing 23.2 ml/min eGFR 21.38 BUN/Creatinine Ratio 16.5 (10-20) Glucose 162 H (70-99(Fasting)) mg/dl POC Glucose (other) 158 H (70-99) mg/dl Lactate 8.1 H* (0.4-2.0) mmol/L Calcium 8.8 (8.6-10.3) mg/dl POC Ioniz Calcium Brown 1.02 L (1.12-1.32) mmol/l Magnesium 2.1 (1.7-2.4) mg/dl Total Bilirubin 2.9 H (0.2-1.0) mg/dl AST 172 H (13-39) U/L ALT 95 H (7-52) U/L Alkaline Phosphatase 147 H (34-104) U/L Troponin I High Sens 37.2 H 37.4 H (0-20) pg/ml B-Natriuretic Peptide 3199 H (0-100) pg/ml Total Protein 6.6 (6.0-8.3) gm/dl Albumin 3.7 (3.4-5.0) gm/dl Globulin 2.9 (2.5-4.0) gm/dl Albumin/Globulin Ratio 1.3 (0.9-2) Lipase 16 (11-82) U/L Procalcitonin 1.93 H (0-0.5) ng/ml Adenovirus (PCR) Not Detected (NotDetected) B. pertussis DNA (PCR) Not Detected (NotDetected) B.parapertussis DNA PCR Not Detected (NotDetected) C. pneumoniae DNA (PCR) Not Detected (NotDetected) Coronavirus OC43 (PCR) Not Detected (NotDetected) Coronavirus HKU1 (PCR) Not Detected (NotDetected) Coronavirus 229E (PCR) Not Detected (NotDetected) SARS-CoV-2 (PCR) Not Detected (NotDetected) Coronavirus NL63 (PCR) Not Detected (NotDetected) Human Metapneumovir PCR Not Detected (NotDetected) Influenza Type A (PCR) Not Detected (NotDetected) Influenza Type B (PCR) Not Detected (NotDetected) M. pneumoniae (PCR) Not Detected (NotDetected) Parainfluenza 1 (PCR) Not Detected (NotDetected) Parainfluenza 2 (PCR) Not Detected (NotDetected) Parainfluenza 3 (PCR) Not Detected (NotDetected) Parainfluenza 4 (PCR) Not Detected (NotDetected) RSV (PCR) Not Detected (NotDetected) Entero/Rhino (PCR) Not Detected (NotDetected) 09/04/24 09/04/24 Range/Units 16:48 17:31 WBC (4.8-10.8) K/ul RBC (4.70-6.10) M/uL Hgb (14.0-18.0) g/dl POC Hgb 9.9 L (14.0-18.0) g/dl Hct (42.0-52.0) % POC Hct 29 L (42-52) % MCV (80.0-100.0) fL MCH (25.0-34.0) pg MCHC (32.0-36.0) g/dL RDW Std Deviation (36.4-46.3) fL RDW Coeff of Perez (11.5-14.5) % Plt Count (130-400) K/uL MPV (9.4-12.4) fL Immature Gran % (Auto) % Neut % (Auto) % Lymph % (Auto) % [place] % (Auto) % Eos % (Auto) % Baso % (Auto) % Neut # (Auto) (1.40-6.50) K/uL Lymph # (Auto) (1.20-3.40) K/uL [place] # (Auto) (0.11-0.59) K/uL Eos # (Auto) (0.00-0.50) K/uL Baso # (Auto) (0.00-0.20) K/uL Immature Gran # (Auto) (0.01-0.20) K/uL Platelet Estimate (Normal) Poikilocytosis Tear Drop Cells Acanthocytes (Spur) PT (9.0-12.0) Seconds INR (0.9-1.1) POC pH 7.46 H (7.35-7.45) POC pCO2 20 L (35-46) mmHg POC pO2 176 H (80-95) mmHg POC HCO3 14 L (19-24) nasim/L POC Base Excess -10.0 L (-9-1.8) nasim/L POC ABG O2 Sat 100.0 H (90-95) % VBG pH (7.36-7.41) VBG pCO2 (38-50) mmHg VBG pO2 mmHg VBG HCO3 mmol/L VBG O2 Saturation % VBG Base Excess mEq/L POC Sodium 132 L (135-144) mmol/L Sodium (136-145) mmol/L POC Potassium 5.5 H (3.3-5.0) mmol/L Potassium (3.5-5.1) mmol/L POC Chloride (101-112) mmol/L Chloride (98-107) mmol/L Carbon Dioxide (21-32) mmol/L POC Total CO2 15 L (24-31) mmol/L Anion Gap (3-11) POC Anion Gap (16-25) mmol/L POC BUN (7-18) mg/dl BUN (6-23) mg/dl Creatinine (0.6-1.4) mg/dl POC Creatinine (0.6-1.3) mg/dl Est Cr Clr Drug Dosing ml/min eGFR BUN/Creatinine Ratio (10-20) Glucose (70-99(Fasting)) mg/dl POC Glucose (other) (70-99) mg/dl Lactate 6.3 H* (0.4-2.0) mmol/L Calcium (8.6-10.3) mg/dl POC Ioniz Calcium Brown (1.12-1.32) mmol/l Magnesium (1.7-2.4) mg/dl Total Bilirubin (0.2-1.0) mg/dl AST (13-39) U/L ALT (7-52) U/L Alkaline Phosphatase (34-104) U/L Troponin I High Sens (0-20) pg/ml B-Natriuretic Peptide (0-100) pg/ml Total Protein (6.0-8.3) gm/dl Albumin (3.4-5.0) gm/dl Globulin (2.5-4.0) gm/dl Albumin/Globulin Ratio (0.9-2) Lipase (11-82) U/L Procalcitonin (0-0.5) ng/ml Adenovirus (PCR) (NotDetected) B. pertussis DNA (PCR) (NotDetected) B.parapertussis DNA PCR (NotDetected) C. pneumoniae DNA (PCR) (NotDetected) Coronavirus OC43 (PCR) (NotDetected) Coronavirus HKU1 (PCR) (NotDetected) Coronavirus 229E (PCR) (NotDetected) SARS-CoV-2 (PCR) (NotDetected) Coronavirus NL63 (PCR) (NotDetected) Human Metapneumovir PCR (NotDetected) Influenza Type A (PCR) (NotDetected) Influenza Type B (PCR) (NotDetected) M. pneumoniae (PCR) (NotDetected) Parainfluenza 1 (PCR) (NotDetected) Parainfluenza 2 (PCR) (NotDetected) Parainfluenza 3 (PCR) (NotDetected) Parainfluenza 4 (PCR) (NotDetected) RSV (PCR) (NotDetected) Entero/Rhino (PCR) (NotDetected) Administered Medications Discontinued Medications Furosemide (Furosemide 40 Mg/4 Ml Vial) 40 mg IV ONE ONE Stop: 09/04/24 17:29 Last Admin: 09/04/24 17:55 Dose: Not Given Documented By: MANUEL Sodium Chloride (Nss) 1,000 mls @ 999 mls/hr IV .Q1H1M ONE Stop: 09/04/24 16:49 Last Infusion: 09/04/24 17:15 Dose: Infused Documented By: Admin: 09/04/24 15:54 Dose: 999 mls/hr Documented By: MANUEL Cefepime HCl (Maxipime 2000mg) 2,000 mg in 20 mls @ 5 mls/min IV NOW STA Stop: 09/04/24 16:14 Last Admin: 09/04/24 16:15 Dose: 5 mls/min Documented By: DAMIANAlfonso Imaging Data Radiologist's Impression: Chest X-Ray 09/04/24 14:31 XR chest 1V portable HISTORY: 84 years-old Male Chest pain, nonspecific COMPARISON: 05/13/2024 TECHNIQUE: AP view of the chest FINDINGS: Cardiac silhouette is enlarged. Median sternotomy. Left subclavian pacer/AICD. Interstitial pulmonary edema with small pleural effusions and mild bibasilar atelectasis. Bilateral shoulder arthroplasties. IMPRESSION: 1. Cardiomegaly with pulmonary edema. 2. Small pleural effusions. ACT 112: Negative or not required by law. The above report was generated using voice recognition software. It may contain grammatical, syntax or spelling errors. Electronically signed by: Dennis Bazzi M.D. 09/04/2024 3:27 PM Discharge Plan Visit Data Chief Complaint: Cardiac Assessment Stated Complaint: BLUE LIPS/FINGERS, FROM [facility]CER [facility], CARDIAC HIS ED Provider: Angela Hung Discharge Problem: Acute dyspnea, Acute hypoxemic respiratory failure, Acute exacerbation of CHF (congestive heart failure), Non-ST elevation [place] (NSTEMI), Elevated brain natriuretic peptide (BNP) level, Sepsis, Pulmonary edema Forms Stand Alone Forms: My [facility] [place] [employer] Prescriptions Prescriptions: No Action clopidogrel [Plavix] 75 mg tablet 75 mg PO DAILY Firmagon kit w diluent syringe 120 mg recon soln 240 mg subcut ONCE Qty: 2 0RF Rx Instructions: C61. Coming on 07/13/24 Firmagon kit w diluent syringe 80 mg recon soln 80 mg subcut Q28D Qty: 1 2RF Rx Instructions: C61. Coming 08/15/24 Firmagon kit w diluent syringe 80 mg recon soln 80 mg subcut Q28D Qty: 1 2RF Rx Instructions: C61. Coming 09/19/24 tamsulosin 0.4 mg capsule 0.4 mg PO DAILY Qty: 90 3RF potassium chloride 10 mEq Capsule, Extended Release 10 meq PO DAILY amiodarone 200 mg Tablet 200 mg PO QAM furosemide 20 mg Tablet 40 mg PO DAILY cholecalciferol (vitamin D3) [Vitamin D3] 50 mcg (2,000 unit) Capsule 50 mcg PO DAILY Rx Instructions: Unable to verify OTC meds at this date/time. bicalutamide [Casodex] 50 mg Tablet 50 mg PO DAILY metoprolol succinate 50 mg Tablet Extended Release 24 Hr 50 mg PO BID erythromycin 5 mg/gram (0.5 %) Ointment 0.25 inch OPHTHALMIC (EYE) QID levothyroxine 112 mcg Tablet 112 mcg PO QAM apixaban 2.5 mg Tablet 2.5 mg PO BID guaifenesin 200 mg tablet 200 mg PO Q6H PRN (Reason: cough) Qty: 20 0RF Referrals Referrals: Sandra Judge MD [Primary Care Provider] - Discharge Problem: Acute exacerbation of CHF (congestive heart failure) Qualifiers: Heart failure type: systolic Qualified Code(s): I50.23 - Acute on chronic systolic (congestive) heart failure
[2024-09-04 15:26] LABS: iSTAT Hemoglobin 10.9 g/dl (14.0-18.0); iSTAT Ionized Calcium 1.02 mmol/l (1.12-1.32); iSTAT Potassium 5.7 mmol/L (3.3-5.0)
--- NOTE | 2024-09-04 15:28 | XRay Report ---
XR chest 1V portable HISTORY: 84 years-old Male Chest pain, nonspecific COMPARISON: 05/13/2024 TECHNIQUE: AP view of the chest FINDINGS: Cardiac silhouette is enlarged. Median sternotomy. Left subclavian pacer/AICD. Interstitial pulmonary edema with small pleural effusions and mild bibasilar atelectasis. Bilateral shoulder arthroplasties . IMPRESSION: 1. Cardiomegaly with pulmonary edema. 2. Small pleural effusions. ACT 112: Negative or not required by law. The above report was generated using voice recognition software. It may contain grammatical, syntax o r spelling errors. Electronically signed by: Dennis Bazzi M.D. 09/04/2024 3:27 PM
[2024-09-04 15:29] LABS: HCO3 VBG 18 mmol/L; Oxygen Saturation VBG < 60.0 %; PCO2 VBG 33 mmHg (38-50); PO2 VBG 28 mmHg; pH VBG 7.34 (7.36-7.41)
[2024-09-04] MEDS: SODIUM CHLORIDE 0.9% 1,000 ML IV ONE (15:54)
[2024-09-04 15:55] LABS: Troponin I High Sensitivity 37.2 pg/ml (0-20)
[2024-09-04 16:06] LABS: Albumin Level 3.7 gm/dl (3.4-5.0); Bilirubin,Total 2.9 mg/dl (0.2-1.0); Calcium 8.8 mg/dl (8.6-10.3); Magnesium 2.1 mg/dl (1.7-2.4); Potassium 5.4 mmol/L (3.5-5.1)
[2024-09-04 16:09] LABS: Acanthocytes 1+; Basophils # (auto) 0.01 K/uL (0.00-0.20); Basophils % (auto) 0.1 %; Hematocrit (blood only) 27.9 % (42.0-52.0); Hemoglobin 9.2 g/dl (14.0-18.0); INR 1.6 (0.9-1.1); Immature Granulocytes # (auto) 0.06 K/uL (0.01-0.20); Immature Granulocytes % (auto) 0.8 %; Lymphocytes # (auto) 0.33 K/uL (1.20-3.40); Lymphocytes % (auto) 4.4 %; Mean Corpuscular Hemoglobin 26.9 pg (25.0-34.0); Mean Corpuscular Volume 81.6 fL (80.0-100.0); Mean Platelet Volume 10.8 fL (9.4-12.4); Monocytes # (auto) 0.52 K/uL (0.11-0.59); Monocytes % (auto) 6.9 %; Neutrophils % (auto) 87.8 %; Platelet Count 77 K/uL (130-400); Platelet Estimate Decreased (Normal); Poikilocytosis Present; Prothrombin Time 16.3 Seconds (9.0-12.0); RDW Coefficient of Variation 22.7 % (11.5-14.5); RDW Standard Deviation 65.3 fL (36.4-46.3); Red Blood Count 3.42 M/uL (4.70-6.10); Tear Drop Cells 1+; White Blood Count 7.52 K/ul (4.8-10.8)
[2024-09-04 16:12] LABS: Albumin Globulin Ratio 1.3 (0.9-2); BUN Creatinine Ratio 16.5 (10-20); Creatinine Clr Calc Pharmacy 23.2 ml/min; Globulin 2.9 gm/dl (2.5-4.0); Total Protein 6.6 gm/dl (6.0-8.3)
[2024-09-04] MEDS: CEFEPIME 2000MG 2,000 MG/20 ML SYR IV STA (16:15)
[2024-09-04] MEDS ORDERED: DAPTOmycin 425 MG in SYRINGE 0 ML IV SCH (16:15)
[2024-09-04 16:27] LABS: Adenovirus PCR Not Detected (NotDetected); Bordetella parapertussis PCR Not Detected (NotDetected); Bordetella pertussis PCR Not Detected (NotDetected); Chlamydia pneumoniae PCR Not Detected (NotDetected); Coronavirus 229E PCR Not Detected (NotDetected); Coronavirus CoV-2 (COVID19)PCR Not Detected (NotDetected); Coronavirus HKU1 PCR Not Detected (NotDetected); Coronavirus NL63 PCR Not Detected (NotDetected); Coronavirus OC43PCR Not Detected (NotDetected); Human Metapneumovirus PCR Not Detected (NotDetected); Influenza A PCR Not Detected (NotDetected); Influenza B PCR Not Detected (NotDetected); Mycoplasma pneumoniae PCR Not Detected (NotDetected); Parainfluenza Virus 1 PCR Not Detected (NotDetected); Parainfluenza Virus 2 PCR Not Detected (NotDetected); Parainfluenza Virus 3 PCR Not Detected (NotDetected); Parainfluenza Virus 4 PCR Not Detected (NotDetected); Respiratory Syncytial VirusPCR Not Detected (NotDetected); Rhinovirus/Enterovirus PCR Not Detected (NotDetected)
--- NOTE | 2024-09-04 17:13 | History & Physical Report ---
Date of Service September 04, 2024 Assessment & Plan (1) Acute lactic acidosis: (2) Acute hypoxemic respiratory failure: (3) Elevated brain natriuretic peptide (BNP) level: (4) Acute kidney injury superimposed on stage 3b chronic kidney disease: (5) Elevated liver function tests: (6) Elevated troponin level: (7) Hyperkalemia: Plan Junior Garcia is an 84-year-old male past medical history of DM type II, diabetic neuropathy, diabetic peripheral angiopathy, gouty arthropathy, hypothyroidism, BHUPINDER/nocturnal hypoxemia intolerant to CPAP, CKD stage IIIb, HTN, HLD, left arm DVT in 2017, paroxysmal atrial fibrillation anticoagulated with Eliquis, ventricular tachycardia s/p pacer-defibrillator placement in 2018, CAD s/p CABG x 3 in 2015, ischemic cardiomyopathy, systolic CHF, peripheral artery disease, left vertebral artery stenosis, atrial septal aneurysm, prostate cancer [currently receiving radiation + Casodex + Firmagon], 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 Patient was over at the [facility] receiving radiation therapy for his prostate cancer when he was noted to be acutely cyanotic-appearing and minimally responsive per staff, therefore he was brought over to the ED for evaluation. Forehead pulse oximetry reading was initially 77% on 10L OxyMask however he had to have his pulse oximeter readjusted multiple times due to saturations are ranging from 50% to 100%. This may have been a false reading per RT; however, patient was subsequently placed on CPAP as he did appear to have circumoral cyanosis and nail bed cyanosis in the ED. At the time of our evaluation around 17:30, patient seemed comfortable on CPAP and was able to hold a conversation. Rest of history as per HPI. Acute Lactic Acidosis, Elevated BNP/Systolic CHF Acute Hypoxemic Respiratory Failure & C/F Possible Sepsis: Patient with notable hypotension as well as lactic acidosis on initial laboratory evaluation in the ED; no evidence of leukocytosis, anion gap 17. Procalcitonin 1.93; UA unremarkable. Respiratory BioFire panel negative. MRSA nasal screen negative. CXR revealed cardiomegaly with pulmonary edema as well as small bilateral pleural effusions and mild bibasilar atelectasis. Suspect possible sepsis however source of infection is unclear. Will check non-contrast chest CT as well as CTAP ISO VENITA. Repeat lactate 6.3 s/p 1L NSS in the ED. Started on IV cefepime in the ED - will continue. Probiotic added on. Follow blood cultures. ICU consulted --> holding off on IV diuresis despite elevated BNP given lactic acidosis and possible sepsis on presentation. Cardiology consulted. Holding home antihypertensives for now ISO persistent hypotension. M onitor lactate. VENITA Superimposed on CKD Stage IIIb: Patient noted to have an VENITA with Cr of 2.85 on admission, baseline Cr ~ 1.4-1.6 per chart review. Suspect due to hypotension and systemic illness. Currently producing urine; will defer additional lab/imaging diagnostic pending fluid resuscitation. Nephrology consulted. Avoid nephrotoxic medications when able. Monitor renal function closely and renally dose medications when able. Elevated LFTs/Acute Liver Injury: Elevated LFTs noted on initial laboratory evaluation. Holding home amiodarone for now ISO acute liver injury. Continue to monitor LFTs. Elevated Troponin Level, EKG Changes: Initial trop 37.2, 2nd trop 37.4 and 3rd trop 34.7; EKG was concerning for possible ST elevations however ED provider contacted the on-call fire department marine engineer, Dr. Laboy, who felt the EKG changes were chronic and not indicative of acute changes. Patient denied any brandon st pain. Continue to trend trop Q6H for now. EKG daily x 2. EKG w/ chest pain PRN. Obtain updated echo. Hyperkalemia: K+ 5.7 on initial laboratory evaluation. Treated with calcium gluconate/insulin in ED. Continue to monitor and manage PRN. Other Chronic Medical Conditions: * Hypothyroidism - Check TSH, continue levothyroxine. CAD/HLD - Continue statin, Plavix. * PAF - Holding Eliquis for now given need for potential procedures. Hold metoprolol succinate ISO hypotension. * Prostate Cancer - Follows with Dr. Alejandro [[facility]]. Currently undergoing radiation w/ [facility] + chemotherapy. Continue Casodex. DVT Prophylaxis: SCDs/TEDs for now. Code Status: DNR/DNI - No Resuscitation PCP: Sandra Judge MD Disposition: Admit to ICU - please refer to critical care note for further plans of care. Patient seen in collaboration with Dr. Couch. Please see addendum. I spent a total of 65 minutes coordinating, documenting, and providing care for this patient excluding time spent in the performance of separately billed services. This included personally reviewing all current laboratories and imaging studies, medical reconciliation, outpatient chart review and discussion with specialists. This chart was completed in part utilizing Speech Voice Recognition Software. Grammatical errors, random word insertions, pronoun errors, and incomplete sentences are an occasional consequence of this system due to software limitations, ambient noise, and hardware issues. Any formal questions or concerns about the content, text, or information contained within the body of this dictation should be directly addressed to the provider for clarification. History of Present Illness Chief Complaint: Referred from [facility]: Acutely Cyanotic Primary Care Provider: Sandra Judge MD Junior Garcia is an 84-year-old male past medical history of DM type II, diabetic neuropathy, diabetic peripheral angiopathy, gouty arthropathy, hypothyroidism, BHUPINDER/nocturnal hypoxemia intolerant to CPAP, CKD stage IIIb, HTN, HLD, left arm DVT in 2017, paroxysmal atrial fibrillation anticoagulated with Eliquis, ventricular tachycardia s/p pacer-defibrillator placement in 2019, CAD s/p CABG x 3 in 2016, ischemic cardiomyopathy, systolic CHF, peripheral artery disease, left vertebral artery stenosis, atrial septal aneurysm, prostate cancer [currently receiving radiation + Casodex + Firmagon], 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 History obtained from the patient, discussion with ED provider and associated chart review. Patient seen at bedside with Dr. Couch. Patient was over at the [facility] receiving radiation therapy for his prostate cancer when he was noted to be acutely cyanotic-appearing and minimally responsive per staff, therefore he was brought over to the ED for evaluation. Forehead pulse oximetry reading was initially 77% on 10L OxyMask however he had to have his pulse oximeter readjusted multiple times due to saturations are ranging from 50% to 100%. This may have been a false reading per RT; however, patient was subsequently placed on CPAP as he did appear to have circumoral cyanosis and nail bed cyanosis in the ED. At the time of our evaluation around 17:30, patient seemed comfortable on CPAP and was able to hold a conversation. Patient does endorse that he has been experiencing some shortness of breath and chills since Wednesday. He also endorses some burning with urination. No prior oxygen use at home. He does not utilize CPAP at home either. He has been experiencing some lower abdominal pain and mild discomfort in the middle of his lower back region since Wednesday. He denies any increase in urinary frequency or hematuria. No reported fevers at home. He has had quite the decline in his oral intake since Wednesday. He also notes some constipation as well. Initial laboratory evaluation in the ED revealed lactic acidosis with a lactate level of 8.1, hyperkalemia, VENITA on CKD stage IIIb, elevated BNP and elevated troponin. Respiratory BioFire panel was negative. CXR showed cardiomegaly with interstitial pulmonary edema and small bilateral pleural effusions as well as mild bibasilar atelectasis. Patient received 1L NSS as well as IV cefepime in the ED. Subsequent repeat lactate improved to 6.3; EKG was concerning for possible ST elevations however ED provider contacted the on-call fire department marine engineer, Dr. Laboy, who felt the EKG changes are chronic and not indicative of acute changes. Patient denied any chest pain. Patient was still relatively hypotensive at 102/74 at time time of our evaluation. Allergies Allergy/AdvReac Type Severity Reaction Status Date / Time lisinopril AdvReac Mild COUGHING Verified 08/13/24 10:59 Home Medications Medication Instructions Recorded Confirmed Type amiodarone 200 mg tablet 200 mg PO QAM 03/11/23 09/04/24 History cholecalciferol (vitamin D3) 50 50 mcg PO DAILY 03/11/23 09/04/24 History mcg (2,000 unit) capsule (Vitamin D3) furosemide 20 mg tablet 40 mg PO DAILY 03/11/23 09/04/24 History potassium chloride 10 mEq 10 meq PO DAILY 03/11/23 09/04/24 History capsule,extended release tamsulosin 0.4 mg capsule 0.4 mg PO DAILY #90 caps 07/29/23 09/04/24 Rx apixaban 2.5 mg tablet 2.5 mg PO BID 05/13/24 09/04/24 History bicalutamide 50 mg tablet (Casodex) 50 mg PO DAILY 05/13/24 09/04/24 History levothyroxine 112 mcg tablet 112 mcg PO QAM 05/13/24 09/04/24 History metoprolol succinate 50 mg 50 mg PO BID 05/13/24 09/04/24 History tablet,extended release 24 hr clopidogrel 75 mg tablet (Plavix) 75 mg PO DAILY 07/06/24 09/04/24 History degarelix 120 mg subcutaneous 240 mg subcut ONCE #2 ea 07/07/24 09/04/24 Rx solution (Firmagon kit with diluent syringe) degarelix 80 mg subcutaneous 80 mg subcut Q28D #1 ea 07/19/24 09/04/24 Rx solution (Firmagon kit with diluent syringe) degarelix 80 mg subcutaneous 80 mg subcut Q28D #1 ea 08/18/24 09/04/24 Rx solution (Firmagon kit with diluent syringe) Past Med/Surg History Problem List (Updated 09/04/24 @ 22:21 by Macarena Downs PA-C) Hyperkalemia Elevated troponin level Elevated liver function tests Acute kidney injury superimposed on stage 3b chronic kidney disease Hepatopathy Acute lactic acidosis Pulmonary edema (Acute) Sepsis (Acute) Elevated brain natriuretic peptide (BNP) level (Acute) Non-ST elevation VT (NSTEMI) (Acute) Acute exacerbation of CHF (congestive heart failure) (Acute) Acute hypoxemic respiratory failure (Acute) Acute dyspnea (Acute) Prostate cancer (Chronic 05/02/24) Rectal bleeding Elevated lactic acid level (Acute) Aspiration pneumonia of left lower lobe (Acute) Small bowel obstruction (Acute) Incarcerated umbilical hernia (Acute) Small bowel obstruction Incarcerated umbilical hernia Elevated prostate specific antigen (PSA) Hypomagnesemia (Acute) VENITA (acute kidney injury) (Acute) Stroke-like symptoms (Acute) Transient vision disturbance of both eyes Peripheral arterial disease Urinary symptom or sign Ventricular tachycardia (Acute) Defibrillator discharge (Acute) History of left shoulder replacement (Chronic) History of inguinal hernia repair (Chronic) "1955" H/O lithotripsy (Chronic) History of right shoulder replacement (Chronic) "2009" History of total right knee replacement (Chronic) "2004 " 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" Chronic anticoagulation (Chronic) 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) Gout (Chronic) Atrial septal aneurysm (Chronic) PFO (patent foramen ovale) (Chronic) BHUPINDER (obstructive sleep apnea) (Chronic) "not on CPAP" DM type 2 (diabetes mellitus, type 2) (Chronic) Dyslipidemia (Chronic) HTN (hypertension) (Chronic) Mitral regurgitation (Chronic) History of cardioembolic stroke (Chronic) Paroxysmal atrial fibrillation (Chronic) "postoperative" Ischemic cardiomyopathy (Chronic) "prior EF 35-40% in August 2008; improved EF 50-54% on 11/24/16 echo" Medical History History of aspiration pneumonia admitted to [facility] 04/2024 Ischemic cardiomyopathy "prior EF 35-40% in August 2008; improved EF 50-54% on 11/24/16 echo" Paroxysmal atrial fibrillation hx--"postoperative" History of cardioembolic stroke ~2016, 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 Mitral regurgitation follows w/ Dr Hyde HTN (hypertension) Dyslipidemia Diabetes mellitus no meds currently BHUPINDER (obstructive sleep apnea) no device PFO (patent foramen ovale) Atrial septal defect Gout Diabetic neuropathy Chronic anticoagulation Hx of renal calculi Hx of ventricular tachycardia Transient vision disturbance of both eyes Peripheral artery disease Rectal bleeding Bowel obstruction (04/2024) recent admission to [facility] DJD of left shoulder Surgical History 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" History of total right knee replacement (2004) History of lithotripsy Hx of inguinal hernia repair (1954) Hx of colonoscopy History of right shoulder replacement (2009) History of left shoulder replacement AICD present, double chamber [employer], implanted 2018 Family History Brother V-tach required AICD Social History Smoking Status: Never smoker Second Hand Exposure: No; Do You Dip or Chew Tobacco: No; Hx Alcohol Use: No Hx Substance Use: No Preferred Language: Uzbek Communication Ability: Effective Visual Impairment: No Limitations Hearing Ability: Normal Rail Gang Supervisor Required: No Beliefs That Will Affect Care: None marital status: Single Current Living Situation: Alone Current Living Situation Comment: home alone, daughter lives 12 miles away current occupational status: retired Feels Safe at Home: Yes Diet: regular during the past year weight has: decreased > 10 lbs Assistive Devices: Walker Review of Systems Review of Systems: At least ten systems reviewed and negative, except as noted in the HPI. Physical Exam Physical Exam: Please refer to Dr. Couch's addendum for physical examination findings. Results & Data Results & Data Vital Signs (Past 12 Hours) Vital Signs Temp Pulse Pulse Resp BP BP Pulse Ox 09/04/24 16:05 70 25 H 93/73 L 100 09/04/24 15:57 70 27 H 100 09/04/24 15:39 70 L 09/04/24 15:38 65 L 09/04/24 14:44 68 09/04/24 14:36 36.9 C 71 34 H 112/64 100 O2 Del Method O2 Flow Rate FiO2 09/04/24 16:05 CPAP 09/04/24 15:57 40 09/04/24 15:39 Nasal Cannula 4 09/04/24 15:38 Nasal Cannula 3.5 09/04/24 14:44 09/04/24 14:36 Oxymask Laboratory Results Short CBC 09/04/24 Range/Units 15:07 WBC 7.52 (4.8-10.8) K/ul Hgb 9.2 L (14.0-18.0) g/dl Hct 27.9 L (42.0-52.0) % Plt Count 77 L (130-400) K/uL BMP 09/04/24 15:07 Sodium 132 L Potassium 5.4 H Chloride 97 L Carbon Dioxide 18 L BUN 47 H Creatinine 2.85 H Glucose 162 H Calcium 8.8 Liver Function 09/04/24 Range/Units 15:07 Total Bilirubin 2.9 H (0.2-1.0) mg/dl AST 172 H (13-39) U/L ALT 95 H (7-52) U/L Alkaline Phosphatase 147 H (34-104) U/L Albumin 3.7 (3.4-5.0) gm/dl Diagnostic Findings Chest X-Ray 09/04/24 14:31 XR chest 1V portable HISTORY: 84 years-old Male Chest pain, nonspecific COMPARISON: 05/13/2024 TECHNIQUE: AP view of the chest FINDINGS: Cardiac silhouette is enlarged. Median sternotomy. Left subclavian pacer/AICD. Interstitial pulmonary edema with small pleural effusions and mild bibasilar atelectasis. Bilateral shoulder arthroplasties. IMPRESSION: 1. Cardiomegaly with pulmonary edema. 2. Small pleural effusions. ACT 112: Negative or not required by law. The above report was generated using voice recognition software. It may contain grammatical, syntax or spelling errors. Electronically signed by: Dennis Bazzi M.D. 09/04/2024 3:27 PM Medications Administered Discontinued Medications Sodium Chloride (Nss) 1,000 mls @ 999 mls/hr IV .Q1H1M ONE Stop: 09/04/24 16:49 Last Infusion: 09/04/24 17:15 Dose: Infused Documented By: Admin: 09/04/24 15:54 Dose: 999 mls/hr Documented By: MANUEL Cefepime HCl (Maxipime 2000mg) 2,000 mg in 20 mls @ 5 mls/min IV NOW STA Stop: 09/04/24 16:14 Last Admin: 09/04/24 16:15 Dose: 5 mls/min Documented By: MANUEL Code Status & VTE Plan Code Status FULL CODE Supervising Physician Co-Signing Physician Notes Attending Addendum: Case reviewed with the advanced practitioner. I have personally performed a history and physical examination on the patient. I have reviewed the advanced practitioner's documentation on the date of service referenced in note, and I agree with, and take responsibility for the plan of care. please refer to her notes for full details patient seen and examined, records reviewed by myself as well on exam, patient seen resting in bed, tachypneic, speaking in sentences with some effort, accessory muscle use reports mild dyspnea, cough, chills for the past few days no other symptoms VS noted and reviewed General- oriented x 3, not in distress, speaks in sentences with some effort and mild accessory muscle use Head- atraumatic Eyes- PERRL, EOMI, anicteric ENT- oropharynx clear Neck- supple, no JVD, no adenopathy, no thyromegaly; carotids +2/2, no bruits appreciated Lungs- mild rales BL bases Heart- normal rate, regular rhythm; no murmur, no gallop, no rub appreciated Abdomen- normal bowel sounds, nondistended, soft, nontender, no masses or hepatosplenomegaly Extremities- (+) lower extremity edema, no calf tenderness; peripheral pulses intact Neuro- alert, oriented x 3; CN 2-12 grossly intact; motor 5/5 bilaterally;sensation 100% on all extremities; no other gross focal neurologic deficits Skin- warm & dry all labs, imaging noted and reviewed ASSESSMENT AND PLAN> ACUTE HYPOXIC RESPIRATORY FAILURE likely from Acute on Chronic HFrEF Exacerbation possible Pneumonia SEPSIS, UNCLEAR ETIOLOGY METABOLIC ACIDOSIS, LACTIC ACIDOSIS ACUTE RENAL FAILURE ON CKD 3 HYPERKALEMIA - discussed with Infant Teacher Dr. Pierson - will admit to ICU given 1 L IV NSS at the ER - Cefepime IV Ca gluc , Insulin + D5 - Nephro and Cardiology consult other diagnoses and plan of care as per advanced practitioner's notes Mykel Couch MD
[2024-09-04 17:45] LABS: iSTAT Arterial Blood Gas HCO3 14 meg/L (19-24); iSTAT Arterial Blood Gas pCO2 20 mmHg (35-46); iSTAT Arterial Blood Gas pH 7.46 (7.35-7.45); iSTAT Arterial Blood Gas pO2 176 mmHg (80-95); iSTAT Carbon Dioxide 15 mmol/L (24-31); iSTAT Hematocrit 29 % (42-52); iSTAT Hemoglobin 9.9 g/dl (14.0-18.0); iSTAT Potassium 5.5 mmol/L (3.3-5.0); iSTAT Sodium 132 mmol/L (135-144)
[2024-09-04] MEDS: FUROSEMIDE 40 MG/4 ML VIAL IV ONE (17:55)
[2024-09-04] MEDS: DEXTROSE 50% 50 ML SYRINGE IV STA (18:07)
--- NOTE | 2024-09-04 18:08 | Critical Care Consultation ---
Date of Consultation September 04, 2024 Assessment & Plan (1) Acute lactic acidosis: (2) Sepsis: (3) Elevated brain natriuretic peptide (BNP) level: (4) VENITA (acute kidney injury): (5) Hepatopathy: (6) Chronic anticoagulation: Plan Patient with profound lactic acidosis and hypotension on admission. Source of sepsis is unclear with potential multiple sources including cellulitis of the lower extremities, UTI and intra-abdominal sepsis/ischemic colitis/mesenteric colitis. CT abdomen pelvis was completed at the time of this report and no obvious acute pathology is noted per my review aside for some mild ascites. Official report pending. CT chest with minimal atelectasis at the bases with very small effusions. No clear pulmonary infection identified. Official CT chest report pending. Agree with broad-spectrum antibiotics with cefepime for the time being check MRSA screen. Will hold on diuretic therapy despite elevated BNP given lactic acidosis and sepsis picture on presentation. Will consider initiating diuretics in the near future once blood pressure and lactic acidosis resolved. Follow urine and blood cultures. Hold antihypertensives for the time being. Mild transaminitis noted likely due to hepatic congestion from systolic RV and LV dysfunction. Mildly elevated alkaline phosphatase level. Gallbladder with evidence of cholelithiasis on imaging. Will add Flagyl to the patient's current regimen. Will need to consider paracentesis if sepsis does not improve. Treat hyperkalemia with calcium gluconate. Follow-up BMP and urine output closely. Low threshold for initiation of very low-dose bicarbonate infusion. Would hold on potassium binders for the time being given lactic acidosis and possibility of ischemic colitis. Hold amiodarone in the setting of acute liver injury. Hold Eliquis for the time being given need for potential further procedures. Troponin minimally elevated. Discussed with RT as well regarding the need for PAP therapy. Can likely discontinue CPAP for the time being and place the patient on supplemental oxygen. CRITICAL CARE TIME I have personally spent 38 minutes of critical care time in the direct management of this patient. This is a life/limb threatening event. This includes time spent evaluating patient, direct bedside care, chart review, placing orders, interpretation of diagnostic studies, discussion with consultants, patient, and family members, as well as other required patient management a ctivities. This time is exclusive of all separately billable procedures, and teaching time and separate from and in addition to any other critical care service time. History of Present Illness Reason for Consultation: Lactic acidosis, hypoxemia and hypotension History of Present Illness 84-year-old male with a history of nonsustained V. tach, coronary artery disease status post bypass x 3 in 2016, ischemic cardiomyopathy with an EF of 30%, vertebral artery stenosis, hypothyroidism and BHUPINDER who is presenting to the hospital due to increased shortness of breath and fatigue. He was seen at the cancer care center today to receive radiation treatment for prostate cancer and was found to be cyanotic appearing and extremely fatigued. Labs in the ER today reveal lactic acidosis with a lactic level of 8.1, hyperkalemia and acute kidney injury. Patient notes that over the last 2 or 3 days his abdomen has been tense and he has been constipated. His p.o. intake has also been decreased. Chest x- ray on admission was fairly unremarkable aside from cardiomegaly and small pleural effusions. Patient received a liter of crystalloid fluids in the ER along with cefepime. Subsequent lactate came down to 6.3. CT abdomen and chest was ordered by hospital service. EKG was concerning for possible ST elevations, but ER called interventional cardiology who felt that the EKG changes are chronic and not ST segment changes. Patient denied chest pain at present. Allergies Allergy/AdvReac Type Severity Reaction Status Date / Time lisinopril AdvReac Mild COUGHING Verified 08/13/24 10:59 Home Medications Medication Instructions Recorded Confirmed Type amiodarone 200 mg tablet 200 mg PO QAM 03/11/23 08/28/24 History cholecalciferol (vitamin D3) 50 50 mcg PO DAILY 03/11/23 08/28/24 History mcg (2,000 unit) capsule (Vitamin D3) furosemide 20 mg tablet 40 mg PO DAILY 03/11/23 08/28/24 History potassium chloride 10 mEq 10 meq PO DAILY 03/11/23 08/28/24 History capsule,extended release tamsulosin 0.4 mg capsule 0.4 mg PO DAILY #90 caps 07/29/23 08/28/24 Rx apixaban 2.5 mg tablet 2.5 mg PO BID 05/13/24 08/28/24 History bicalutamide 50 mg tablet (Casodex) 50 mg PO DAILY 05/13/24 08/28/24 History erythromycin 5 mg/gram (0.5 %) eye 0.25 inch ophthalmic (eye) QID 05/13/24 08/28/24 History ointment levothyroxine 112 mcg tablet 112 mcg PO QAM 05/13/24 08/28/24 History metoprolol succinate 50 mg 50 mg PO BID 05/13/24 08/28/24 History tablet,extended release 24 hr guaifenesin 200 mg tablet 200 mg PO Q6H PRN cough #20 tabs 05/18/24 08/28/24 Rx clopidogrel 75 mg tablet (Plavix) 75 mg PO DAILY 07/06/24 08/28/24 History degarelix 120 mg subcutaneous 240 mg subcut ONCE #2 ea 07/07/24 07/07/24 Rx solution (Firmagon kit with diluent syringe) degarelix 80 mg subcutaneous 80 mg subcut Q28D #1 ea 07/19/24 07/19/24 Rx solution (Firmagon kit with diluent syringe) degarelix 80 mg subcutaneous 80 mg subcut Q28D #1 ea 08/18/24 08/18/24 Rx solution (Firmagon kit with diluent syringe) Patient History Medical History History of aspiration pneumonia admitted to [facility] 04/2024 Ischemic cardiomyopathy "prior EF 35-40% in August 2008; improved EF 50-54% on 11/24/16 echo" Paroxysmal atrial fibrillation hx--"postoperative" History of cardioembolic stroke ~2016, 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 Mitral regurgitation follows w/ Dr Hyde HTN (hypertension) Dyslipidemia Diabetes mellitus no meds currently BHUPINDER (obstructive sleep apnea) no device PFO (patent foramen ovale) Atrial septal defect Gout Diabetic neuropathy Chronic anticoagulation Hx of renal calculi Hx of ventricular tachycardia Transient vision disturbance of both eyes Peripheral artery disease Rectal bleeding Bowel obstruction (04/2024) recent admission to [facility] DJD of left shoulder Surgical History 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" History of total right knee replacement (2004) History of lithotripsy Hx of inguinal hernia repair (1954) Hx of colonoscopy History of right shoulder replacement (2009) History of left shoulder replacement AICD present, double chamber [employer], implanted 2019 Family History Brother Katt required AICD Social History Smoking Status: Never smoker Second Hand Exposure: No; Do You Dip or Chew Tobacco: No; Hx Alcohol Use: No Hx Substance Use: No Preferred Language: Pashto Communication Ability: Effective Visual Impairment: No Limitations Hearing Ability: Normal Table Worker Packager Required: No Beliefs That Will Affect Care: None marital status: Single Current Living Situation: Alone Current Living Situation Comment: home alone, daughter lives 12 miles away current occupational status: retired Feels Safe at Home: Yes Diet: regular during the past year weight has: decreased > 10 lbs Assistive Devices: Denture - Upper, Denture - Lower and Walker Review of Systems Review of Systems: All systems reviewed & are unremarkable except as noted in HPI & below Physical Exam Physical Exam: Constitutional: Patient appears to be of their stated age. Patient is in no apparent distress. Patient is well-developed. Eyes: Pupils are equal round and reactive to light. Conjunctivae are normal. Anicteric sclera. Ears nose, mouth and throat: Mallampati class 2. Normal posterior oropharynx. Uvula is midline. BiPAP mask in place. Neck: Trachea is midline. Visual inspection is normal. Respiratory: Clear to auscultation bilaterally. No use of accessory muscles. No significant clubbing noted. Mildly tachypneic. Cardiovascular: Regular rate and rhythm. No murmurs. No edema. Gastrointestinal: Normal bowel sounds, soft, nontender and nondistended. No hepatosplenomegaly noted. Musculoskeletal: No cyanosis. Patient is able to move all extremities. Strength is 5 out of 5 in the upper and lower extremities. Skin: No rashes, warm dry and intact. Neurologic: No obvious focal neurological deficits seen. Psychiatric: Alert and oriented x3 with a euthymic affect. Results & Data Results & Data Vital Signs (Past 12 Hours) Vital Signs Temp Pulse Pulse Resp BP BP Pulse Ox 09/04/24 16:05 70 25 H 93/73 L 100 09/04/24 15:57 70 27 H 100 09/04/24 15:39 70 L 09/04/24 15:38 65 L 09/04/24 14:44 68 09/04/24 14:36 36.9 C 71 34 H 112/64 100 O2 Del Method O2 Flow Rate FiO2 09/04/24 16:05 CPAP 09/04/24 15:57 40 09/04/24 15:39 Nasal Cannula 4 09/04/24 15:38 Nasal Cannula 3.5 09/04/24 14:44 09/04/24 14:36 Oxymask Coding Level of Care Code 36034 CRITICAL CARE 1ST 30-74M Diagnoses Acute lactic acidosis E87.21 Sepsis A41.9 Elevated brain natriuretic peptide (BNP) level R79.89 VENITA (acute kidney injury) N17.9 Hepatopathy K76.9 Chronic anticoagulation Z79.01
[2024-09-04] MEDS: INSULIN HUMAN REGULAR PER UNIT 10 UNITS in SYRINGE 9.9 ML IV STA (18:12)
[2024-09-04] MEDS: CALCIUM GLUCONATE 1,000 MG/60 ML BAG IV STA (18:13)
[2024-09-04] MEDS ORDERED: CEFEPIME 2000MG 2,000 MG/20 ML SYR IV SCH (18:15)
[2024-09-04 18:17] LABS: Appearance Urine Cloudy (Clear); Bacteria Urine Automated None Seen (None Seen); Bilirubin Urine 1+ (Negative); Blood Urine Negative (Negative); Cast Urine Automated >20 /lpf (0-2); Color Urine Dark Yellow; Epithelial Cell Urine Auto 0-2 /hpf (0-2); Glucose Urine UA Negative (Negative); Hyaline Casts Urine Present /lpf (None Presnt); Ketones Urine Negative (Negative); Leukocyte Esterase Urine Negative (Negative); Nitrite Urine Negative (Negative); Protein Urine 3+ (Negative); RBC Urine Automated 0-2 /hpf (0-2); Specific Gravity Urine 1.017 (1.000-1.030); Urobilinogen Urine Negative (Negative); WBC Urine Automated 0-5 /hpf (0-5); pH Urine 5.5 (4.5-7.5)
--- NOTE | 2024-09-04 18:24 | CT Scan Report ---
EXAMINATION: Abdomen and pelvis CT without CLINICAL HISTORY: Lower abdominal pain dysuria PRIORS: 05/13/2024 TECHNIQUE: Contiguous axial images were obtained through the abdomen and pelvis without the use of intravenous contrast. Sagittal and coronal reformations are supplied. FINDINGS: Small bilateral pleural effusions appearing in the interval. Mild hypoventilatory changes at the left lung base. Heart size is enlarged. Calcified subcarinal lymph nodes representing prior granulomatous exposure. A large volume of ascites present, appearing in the interval. Diffuse body wall edema noted, compatible with anasarca, also appearing in the interval. Allowing for the absence of intravenous contrast, the liver, spleen, stomach, and adrenals are morphologically unremarkable. Advanced atherosclerotic disease of the aorta and mesenteric vessels is noted. No dilated or fluid-filled loops of bowel on the current examination. No significant formed stool noted in the colonic lumen. No extraluminal gas or drainable fluid collection. Small amount of fluid present within the umbilicus. A Nichols catheter balloon present in the urinary bladder which itself is under distended. No renal calculus or hydronephrosis. Bilateral inguinal hernias containing fat. Gallstones present in the gallbladder lumen. Gallbladder itself is contracted. In bone windows, moderate osseous demineralization and degenerative change throughout the lumbar spine noted. IMPRESSION: 1. Small bilateral pleural effusions, appearing in the interval. 2. Large volume of ascites and anasarca, appearing in the interval. 3. No dilated loops of bowel or bowel obstruction. 4. Cholelithiasis. 5. Nichols catheter balloon in the urinary bladder with under distended urinary bladder and possible circumferential wall thickening which could suggest cystitis given the stated clinical history. No emphysematous cystitis. ACT 112: Positive. There are findings on this examination that require communication between the performing entity and the patient following Patient Test Result Information Act ([place] ACT 112) guidelines. Electronically signed by Sue Doyle 09-04-2024 6:23 PM
[2024-09-04] MEDS: SODIUM BICARB 8.4% INJ 50 MEQ/50 ML SYR IV STA (18:28)
[2024-09-04] MEDS: metroNIDAZOLE 500 MG/100 ML BAG IV SCH (18:31)
--- NOTE | 2024-09-04 18:42 | CT Scan Report ---
EXAMINATION: Chest CT without CLINICAL HISTORY: Lower abdominal pain dysuria TECHNIQUE: Contiguous axial images were obtained through the chest without the use of intravenous contrast. Sagittal and coronal reformations are supplied. COMPARISON: None FINDINGS: Bilateral shoulder arthroplasties , Median sternotomy wires and left-sided cardiac device create beam hardening artifact greatly diminishing image quality. Allowing for this, the chest is well-expanded with mild airspace consolidation in the left lower lobe. Small bilateral pleural effusions noted, right slightly greater than left. Heart size is markedly enlarged. Advanced atherosclerotic disease of the aorta and coronary arteries noted. Calcified mediastinal and hilar lymph nodes present representing prior granulomatous exposure. No adenopathy. Trachea and mainstem bronchi are patent. Anasarca present. Large volume of ascites present in the upper abdomen. In bone windows, moderate osseous demineralization noted with mild kyphosis and degenerative change throughout the lumbar spine. No high-grade compression fracture. IMPRESSION: 1. Mild heterogeneous opacification in the left lower lobe which could suggest pneumonia in the proper clinical setting. 2. Small bilateral pleural effusions and anasarca within the chest wall. 3. Ascites present at the edge of the [id number]. 4. Severe cardiomegaly Electronically signed by Sue Doyle 09-04-2024 6:41 PM
[2024-09-04 20:59] LABS: BUN Creatinine Ratio 16.4 (10-20); Calcium 8.7 mg/dl (8.6-10.3); Potassium 4.9 mmol/L (3.5-5.1)
[2024-09-04] MEDS: ICU Protocol for HYPERglycemia SCH ×2 (21:44)
--- NOTE | 2024-09-04 21:58 | Communication Note ---
Date of Service: September 04, 2024 Patient DNR/DNI per his wishes. States he has living will as such. Chart changed to reflect his wishes. Coding Level of Care Code None
[2024-09-04 23:03] LABS: BUN Creatinine Ratio 17.2 (10-20); Calcium 8.5 mg/dl (8.6-10.3); Creatinine Clr Calc Pharmacy 21.1 ml/min; Magnesium 1.9 mg/dl (1.7-2.4); Potassium 4.9 mmol/L (3.5-5.1)
[2024-09-04 23:10] LABS: Troponin I High Sensitivity 43.8 pg/ml (0-20)
--- OUTSIDE RECORDS SUMMARY | 2024-09-04 23:18 | External Medical Summary | Summary of Care ---
Author Name Unknown Organization [facility] Address [address] [place] [address] Phone [phone] Care Team Providers Care Vacuum Pan Tender Name Role Phone Sandra Goldstein MD Primary Care Prov ider Encounter Details Date Type Department Care Team (Late st Contact Info) Description 06/05/2024 2:30 PM EDT Home Visit Care Coordination and Integration [address], [place] [id number] Beronica Zhang [facility] Vice President Compliance [address], [place] [id number] Allergies Active Allergy Reactions Criticality Noted Date Comments Lisinopril Cough Low 12/21/2012 documented as of this encounter (statuses as of 07/11/2024) Medications Vitamin D3 25 MCG (1000 UT) Oral Tablet (Vitamin D3)Indications:Vi tamin D deficiency Take by mouth 2 Tablets in the morning. 180 Tablet 1 11/22/19 22 Active Nitroglycerin 0.4 MG Sublingual Tablet Sublingual (Nitrostat)Indica tions:History of myocardial infarction,S/P CABG x 3 place 1 tablet under the tongue every 5 minutes as needed for pain, chest. up to 3 doses in 15 minutes 25 Tablet 04/23/20 23 Active Multi-Vitamins Oral Tablet Take 1 Tablet by mouth in the morning. Active Clopidogrel Bisulfate 75 MG Oral Tablet (pLAVix)Indicatio ns:PAD (peripheral artery disease) (HCC) Take 1 Tablet by mouth in the morning. 90 Tablet 3 4 1:41 PM EST 10/19/19 24 Active Tamsulosin HCl 0.4 MG Oral Capsule (Flomax)Indicatio ns:BPH without obstruction/lower urinary tract symptoms Take one capsule daily 90 Capsule 3 4 1:38 PM EDT 10/19/19 24 Active Metoprolol Succinate ER 50 MG Oral Tablet Extended Release 24 Hour (toPROL XL)Indications:Pa roxysmal atrial fibrillation (HCC),HTN, goal below 150/90,Chronic ischemic heart disease,VF (ventricular fibrillation) (HCC) Take 1 Tablet by mouth 2 times a day. 180 Tablet 3 4 1:38 PM EDT 10/19/19 24 Active Amiodarone HCl 200 MG Oral Tablet (Cordarone)Indica tions:Paroxysmal atrial fibrillation (HCC) Take 1 Tablet by mouth in the morning. 100 Tablet 3 4 10:21 AM EDT 10/26/19 24 Active Furosemide 40 MG Oral Tablet (Lasix)Indication s:Paroxysmal atrial fibrillation (HCC),HTN, goal below 150/90,Ischemic cardiomyopathy Take 1 Tablet by mouth in the morning. 90 Tablet 3 4 1:38 PM EDT 03/23/20 24 Active Potassium Chloride Valentina ER 10 MEQ Oral Tablet Extended ReleaseIndication s:Acute decompensated heart failure (HCC) Take 1 Tablet by mouth in the morning. 90 Tablet 3 4 5:08 PM EDT 03/23/20 24 Active Apixaban 2.5 MG Oral Tablet (Eliquis)Indicati ons:Paroxysmal atrial fibrillation (HCC) Take 1 Tablet by mouth in the morning and 1 Tablet before bedtime. 180 Tablet 3 4 1:38 PM EDT 03/23/20 24 Active Dema 3 1000 MG Oral Capsule Take by mouth daily. Active Levothyroxine Sodium 112 MCG Oral Tablet (Levoxyl)Indicati ons:Hypothyroidis m due to acquired atrophy of thyroid Take 1 Tablet by mouth daily first thing in the morning at least 30 min prior to breakfast or other meds 90 Tablet 3 4 1:41 PM EST 04/11/20 Active Bicalutamide 50 MG Oral Tablet (Casodex) Take 1 Tablet by mouth in the morning. 30 Tablet 3 05/02/20 Active Ondansetron 8 MG Oral Tablet Disintegrating (Zofran) Place 1 Tablet on tongue every 8 hours as needed for Nausea. dissolve on tongue. 30 Tablet 05/08/20 Active Clotrimazole 1 % External Cream (Lotrimin) Apply topically to affected area 2 times a day . 60 g 2 03/16/20 22 2023 Discontinued Vitamin C 500 MG Oral Tablet Chewable Take 1 Tablet by mouth in the morning. 2023 Discontinued Quercetin 500 MG Oral Capsule Take by mouth daily. 2023 Discontinued L-Carnitine 500 MG Oral Capsule Take by mouth daily. 2023 Discontinued Nystatin [id number] UNIT/GM External CreamIndications: Candidal diaper dermatitis Apply topically to affected area 2 times a day for two weeks. 30 g 5 4 10:39 AM EDT 04/11/20 24 2023 Discontinued Azithromycin 250 MG Oral Tablet (Zithromax Z-Triston)Indications :Pneumonia due to infectious organism, unspecified laterality, unspecified part of lung Take two tablets by mouth on first day, then 1 tablet daily until gone 6 Tablet 05/24/20 24 2023 Discontinued(M edication List Clean Up) Cephalexin 500 MG Oral CapsuleIndication s:Cellulitis of right lower extremity,Open wound of right lower leg, initial encounter Take 1 Capsule by mouth in the morning and 1 Capsule at noon and 1 Capsule before bedtime. Do all this for 10 days. 30 Capsule 05/26/20 24 2023 Discontinued Hospital, Clinic, or Other Facility Administered Medication Ordered Dose Route Frequency Start Date End Date Status Nystatin (Nystop) powderIndications:Tinea cruris TOP BID (.AM/PM) 06/10/2021 Active documented as of this encounter (statuses as of 07/11/2024) Active Problems Problem Noted Date Diagnosed Date Prostate cancer 06/24/2024 Cellulitis of right lower extremity 05/26/2024 Elevated PSA 10/21/2023 Hypothyroidism due to acquired atrophy of thyroi d 10/19/2023 Yeast dermatitis 04/21/2023 Type 2 diabetes mellitus wit h stage 3b chronic kidney disease, without long-term current use of insulin 09/15/2022 Assessment & Plan (04/20/2024 10:39 AM EDT): Diet controlled Most recent A1c 5.5% Scrotal swelling 03/16/2022 Tinea cruris 03/16/2022 Systolic congestive heart failure 12/02/2021 Type 2 diabetes mellitus wit h diabetic peripheral angiopathy without gangrene 12/02/2021 PAD (peripheral artery disease) 12/02/2021 Assessment & Plan (04/20/2024 10:39 AM EDT): Following with vascular surgery Hypertensive heart disease w ith systolic heart failure and stage 3b chronic kidney disease 11/19/2021 Assessment & Plan (04/20/2024 10:38 AM EDT): "RED FLAG" HF Symptoms: Leg Swelling Abdominal [...] stenosis, left 02/03/2019 AK (actinic keratosis) 06/29/2016 Overview (01/04/2019): Efudex (face 12/2018) Dysarthria 11/05/2015 History of cardioembolic cerebrovascular acciden t (CVA) 11/05/2015 Paroxysmal atrial fibrillation 11/05/2015 S/P CABG x 3 10/29/2015 BHUPINDER (obstructive sleep apnea) 06/20/2013 Overview (07/24/2013): AHI 34 on baseline PSG 05/28/13 DME: AHP 07/24/13 auto CPAP to set pressure of 13 cm Assessment & Plan (04/20/2024 10:39 AM EDT): Declines use of CPAP, has not used for >2 years Dyslipidemia, goal LDL below 70 08/05/2009 Overview (08/05/2009): Per Lipid Taxonomy. Type 2 diabetes mellitus wit h hemoglobin A1c goal of less than 8.0% 06/20/2009 Overview (12/19/2015): Per Diabetes Taxonomy. ICD-10 update of inactive term History of myocardial infarction HTN, goal below 150/90 Gout Coronary artery disease Vitamin D deficiency documented as of this encounter (statuses as of 07/11/2024) Resolved Problems Problem Noted Date Diagnosed Date [...] CHF 05/26/2019 05/22/2022 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 sander setter 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 [...] A1c goal of less than 7.0% 06/20/2009 Overview (12/17/2015): Per Diabetes Taxonomy. ICD-10 update of inactive term Mixed dyslipidemia 9 Overview (08/05/2009): Per Lipid Taxonomy. Colon polyp 02/21/2019 documented as of this encounter (statuses as of 07/11/2024) Immunizations Name Administration Dates Next Due COVID-19 mRNA, LNP-s, No Pre serve, 2-Dose Series (MyCabbage) 06/17/2021,11/14/2020,10/24/2020 Covid-19, Mrna, Lnp-s, Pf, B ivalent, 30 Mcg, IM, 12 yrs and above (MyCabbage) 10/01/2022 Pneumococcal Conjugate Vacc, 13 Valent (Prevnar) 08/13/2015 Pneumococcal Polysaccharide PPV23 (Pneumovax) 07/07/2012 Seasonal Influenza Vac., MDV , IM, 0.5 mL (Fluzone) 05/25/2014,06/13/2013,07/07/2012 Seasonal Influenza, High Dos e, Trivalent, PF, IM (Fluzone HD) 05/24/2024 Seasonal Influenza, PF, 6 M & above, IM , (FluLaval or Fluzone) 05/28/2020,05/25/2019,05/05/2018,06/04 Seasonal Influenza, Quadriva lent Hd (Fluzone Hd) 04/27/2023,06/05/2021 Seasonal Influenza, Quadriva lent, No Preserve, IM 08/18/2016,08/13/2015 Seasonal Influenza, Trivalen t, Adjuvanted, 65+ YRS, [...] the money to buy more. Never true 06/15/20 Within the past 12 months, t he food you bought just didn't last and you didn't have money to get more. Never true 06/15/2024 Childcare Answer Date Recorded Do you feel overwhelmed with taking care of a child, family member or friend? No 06/15/2024 Does your family need help f inding childcare? (Household - for ages 0-17 years) Not on file 06/15/2024 Clothing Answer Date Recorded Have you been unable to get clothing when it was really needed? No 06/15/2024 Is your family able to get c lothes or diapers when needed? (Household - for ages 0-17 years) Not on file 06/15/2024 Personal Safety Answer Date Recorded Do you feel unsafe or have concerns for your saf ety? No 06/15/2024 Do you have concerns for you r family's safety? (Household - for ages 0-17 years) Not on file 06/15/2024 Utilities Answer Date Recorded Do you have trouble paying y our heating, water, or electric bill? No 06/15/2024 Is your family able to pay t he heat, water, or electric bill? (Household - for ages 0-17 years) Not on file 06/15/2024 Does your family have access to good internet? (Household - for ages 0-17 years) Not on file 06/15/2024 Employment Status Answer Date Recorded Are you unemployed or without regular income? No 06/15/2024 Does the household have a re gular source of income? (Household - for ages 0-17 years) Not on file 06/15/2024 Social Connections Answer Date Recorded How often do you feel lonely or isolated from th ose around you? Never 06/15/2024 Financial Resource Strain Answer Date R ecorded Do you have any trouble payi ng for your medications, or do you think you might in the future? No 06/15/2024 Does your family have troubl e paying for medicine? (Household - for ages 0-17 years) Not on file 06/15/2024 Transportation Needs Answer Date Record ed READ ONLY Do you have troubl e getting a ride to medical visits or work? Never True 06/15/2024 Does your family have a hard time getting a ride to doctors visits? (Household - for ages 0-17 years) Not on file 06/15/2024 Has lack of transportation k ept you from medical appointments, meetings, work, or from getting things needed for daily living? Check all that apply. No 06/15/2024 Do you (or your family) have trouble finding or paying for a ride (transportation)? (Household - for ages 0-17 years) Not on file 06/15/2024 Housing Stability Answer Date Recorded Do you currently live in a s helter or have no steady place to sleep at night? No 06/15/2024 READ ONLY Do you think you a re at risk of becoming homeless? No 06/15/2024 Does your family worry about paying for your home or becoming homeless? (Household - for ages 0-17 years) Not on file 1 Are you homeless or worried that you might be in the future? No 06/15/2024 Are you (or your family) rosa eless or worried that you might be in the future? (Household - for ages 0-17 years) Not on file Food Insecurity Answer Date Recorded Do you need food for this week? No 06/15/2024 Are you able to get enough f ood for your family? (Household - for ages 0-17 years) Not on file 06/15/2024 Does your family need food t his week? (Household - for ages 0-17 years) Not on file 06/15/2024 Do you always have enough fo od for your family? (Household - for ages 0-17 years) Not on file 06/15/2024 Sex and Gender Information Value Date Recorded Sex Assigned at Male 04/21/2023 10:23 AM EDT Legal Sex Male 5:01 AM EST Gender Identity Male 04/21/2023 10:23 AM EDT Sexual Orientation Straight 04/21/2023 10 :23 AM EDT documented as of this encounter Last Filed Vital Signs Vital Sign Reading Time Taken Comments Blood Pressure 98/52 06/05/2024 2:55 PM EDT Pulse 79 06/05/2024 2:55 PM EDT Temperature 35.9 C (96.7 F) 06/05/2024 2:55 PM ED T Respiratory Rate 20 06/05/2024 2:55 PM EDT Oxygen Saturation 98% 06/05/2024 2:55 PM EDT Inhaled Oxygen Concentration - - Weight - - Height - - Body Mass Index - - documented in this encounter Functional Status * Are you deaf or do you have serious difficulty hearing? Answer Date of Assessment Author No 11/05/2015 1:21 AM EDT Marjorie Santiago RN * Are you blind or do you have serious difficulty seeing, even when wearing glasses? Answer Date of Assessment Author No 11/05/2015 1:21 AM EDT Marjorie Santiago RN * Do you have serious difficulty walking or climbing stairs? (5 years old or older) Answer Date of Assessment Author No 11/05/2015 1:21 AM EDT Marjorie Santiago RN * Do you have difficulty dressing or bathing? (5 years old or older) Answer Date of Assessment Author No 11/05/2015 1:21 AM EDT Marjorie Santiago RN * Because of a physical, mental, or emotional condition, do you have difficulty doing errands alone such as visiting a doctors office or shopping? (15 years old or older) Answer Date of Assessment Author No 11/05/2015 1:21 AM EDT Marjorie Santiago RN documented as of this encounter Mental Status * Because of a physical, mental, or emotional condition, do you have serious difficulty concentrating, remembering, or making decisions? (5 years old or older) Answer Entry Date Author No 11/05/2015 1:21 AM EDT Marjorie Santiago RN documented in this encounter Progress Notes * Beronica Zhang [facility] Vice President Compliance - 06/06/2024 1:33 PM EDT Telemedicine visit: No [facility] Vice President Compliance (YE) documentation: CHW return home visit per CM Medication rec completed. Pt not taking the plAVix at this time. He stated he couldn't have his PETCT scan completed because he didn't stop taking the Plavix. Pt reports he isn't able to eat much, he states he just doesn't have an appetite. He did state thathe is doing better now than before he went to the hospital. SDOH was completed with no needs identified at this time. CHW reminded pt that his CM, Kelly, would be coming to see him May. 24. CHW instructed pt to reach out to the CM before that if he needs anything. documented in this encounter Plan of Treatment Upcoming Encounters Date Type Department Care Team (Late st Contact Info) Description 08/22/2024 2:30 PM EST Home Visit [facility] [address] [address] Kelly Rosa, JULIA [address] [place] [address] 09/12/2024 10:30 AM EST Office Visit Cardiology [address] [place] [address] Luiz Pina PA-C [address] [place] [address] 10/16/2024 9:00 AM EST Office Visit Family Medicine [address] [place] [phone] Sandra Goldstein MD [address] [place] [address] [place] [address] 10/24/2024 10:30 AM EST Nurse Only Ancillary [address] [place] [address] [place], Nurse Annual [address] [place] [address] 11/07/2024 9:15 AM EDT Office Visit Urology, [facility] [address] [place] [address] Regan Alejandro MD [address] [place] [id number] Health Maintenance Due Date Last Done Comments Diabetic Foot Exam 04/21/2024 04/21/2023, 1 , 05/28/2020, Additional history exists COVID-19 Vaccine ( season) 2024 10/01/2022, 06/17/2021, 11/14/2020, Additional history exists CKD PHOS USE SMARTSET 65999 05/29/202402/2023, 10/01/2022, 12/04/2020, Additional history exists HbA1c 09/07/2024 03/07/2024, 10/21, 05/29/2023, Additional history exists Adult Wellness Visit 10/20/2024 10/21/2023 Depression Screening 10/20/2024 10/21/2023 B-12 11/07/2024 11/08/2023, 04/2023, 12/04/2020, Additional history exists Albumin/Creatinine Ratio 11/08/20242 024, 10/08/2022, 11/30/2017, Additional history exists GFR 11/22/2024 05/24/2024, 04/23, 03/07/2024, Additional history exists Diabetic Eye Exam 01/24/2025 01/25/2024, , 06/15/2023, Additional history exists TSH 05/10/2025 05/10/2024, 02/20, 07/01/2023, Additional history exists CKD HGB USE SMARTSET 59432 05/24/202505/24, 05/24/2024, 05/10/2024, Additional history exists DTap/Tdap Vaccines (3 - Td or Tdap) 03/27/2033 03/27/2023, 03/08/2013 Pneumococcal Vaccine: 65+ Years Completed 08/13/2015, 07/07/2012 Zoster Vaccines Completed 12/02/2021, 09/2020, 06/06/2020, Additional history exists Influenza Vaccine (FLU shot) Completed 05/24/2024, 04/27/2023, 06/27/2022, Additional history exists DXA Scan Discontinued HPV [...] this encounter Medical Devices Implanted Type Area Umbrella Cutter Device Identifier Shelf Expiration Date Model / Serial / Lot Sut Steel 6 M654g - [id number] Implanted:Qty: 4 on 10/21/2015 by Riki Chan MD at OR [employer] [facility] [employer] N/A: Chest JNJ : [employer] 07/22/2020 M654G / / [id number] Marker Coronary Am-Sd - [id number] Implanted:Qty: 1 on 10/21/2015 by Riki Chan MD at OR [employer] [facility] [employer] N/A: Chest [employer] 08/22/2018 AMGM-SD / / [id number] Marker Coronary [facility] - [id number] Implanted:Qty: 1 on 10/21/2015 by Riki Chan MD at OR [facility] [employer] Chest [employer] 06/22/2018 [facility] [id number] documented as of this encounter Advance Directives [...] and were consensually agreed upon. Care Teams Vacuum Pan Tender Relationship Specialty Start Date End Date Sandra Goldstein MD [address] [place] [address] [place] [address] PCP - General Family Medicine 02/22/19 documented as of this encounter
--- OUTSIDE RECORDS SUMMARY | 2024-09-04 23:18 | External Medical Summary | Summary of Care ---
Author Name Unknown Organization [facility] Address [address] [address] Phone [phone] Care Team Providers Care Measurement Supervisor Name Role Phone Sandra Goldstein MD Primary Care Prov ider Reason for Visit * Reason Onset Date Comments Home Health 05/24/2024 Encounter Details Date Type Department Care Team (Late st Contact Info) Description 05/24/2024 Telephone Family [address] [phone] Sandra Goldstein MD [address] [place] [address] [place] [address] Home Health Allergies Active Allergy Reactions Criticality Noted Date Comments Lisinopril Cough Low 12/21/2012 documented as of this encounter (statuses as of 08/23/2024) Medications Vitamin D3 25 MCG (1000 UT) Oral Tablet (Vitamin D3)Indications:Vit archibald D deficiency Take by mouth 2 Tablets in the morning. 180 Tablet 1 2 Active Nitroglycerin 0.4 MG Sublingual Tablet Sublingual (Nitrostat)Indicat ions:History of myocardial infarction,S/P CABG x 3 place 1 tablet under the tongue every 5 minutes as needed for pain, chest. up to 3 doses in 15 minutes 25 Tablet 3 Active Multi-Vitamins Oral Tablet Take 1 Tablet by mouth in the morning. Active Clopidogrel Bisulfate 75 MG Oral Tablet (pLAVix)Indication s:PAD (peripheral artery disease) (HCC) Take 1 Tablet by mouth in the morning. 90 Tablet 3 07/10/2024 1:41 PM EST 4 Active Tamsulosin HCl 0.4 MG Oral Capsule (Flomax)Indication s:BPH without obstruction/lower urinary tract symptoms Take one capsule daily 90 Capsule 3 06/15/2024 1:38 PM EDT 4 Active Metoprolol Succinate ER 50 MG Oral Tablet Extended Release 24 Hour (toPROL XL)Indications:Par oxysmal atrial fibrillation (HCC),HTN, goal below 150/90,Chronic ischemic heart disease,VF (ventricular fibrillation) (HCC) Take 1 Tablet by mouth 2 times a day. 180 Tablet 3 06/15/2024 1:38 PM EDT 4 Active Amiodarone HCl 200 MG Oral Tablet (Cordarone)Indicat ions:Paroxysmal atrial fibrillation (HCC) Take 1 Tablet by mouth in the morning. 100 Tablet 3 07/17/2024 11:45 AM EST 4 Active Furosemide 40 MG Oral Tablet (Lasix)Indications :Paroxysmal atrial fibrillation (HCC),HTN, goal below 150/90,Ischemic cardiomyopathy Take 1 Tablet by mouth in the morning. 90 Tablet 3 06/15/2024 1:38 PM EDT 4 Active Potassium Chloride Valentina ER 10 MEQ Oral Tablet Extended ReleaseIndications :Acute decompensated heart failure (HCC) Take 1 Tablet by mouth in the morning. 90 Tablet 3 06/23/2024 5:08 PM EDT 4 Active Apixaban 2.5 MG Oral Tablet (Eliquis)Indicatio ns:Paroxysmal atrial fibrillation (HCC) Take 1 Tablet by mouth in the morning and 1 Tablet before bedtime. 180 Tablet 3 06/15/2024 1:38 PM EDT 4 Active Josephine 3 1000 MG Oral Capsule Take by mouth daily. Active Levothyroxine Sodium 112 MCG Oral Tablet (Levoxyl)Indicatio ns:Hypothyroidism due to acquired atrophy of thyroid Take 1 Tablet by mouth daily first thing in the morning at least 30 min prior to breakfast or other meds 90 Tablet 3 07/10/2024 1:41 PM EST 4 Active Bicalutamide 50 MG Oral Tablet (Casodex) Take 1 Tablet by mouth in the morning. 30 Tablet 3 4 Active Ondansetron 8 MG Oral Tablet Disintegrating (Zofran) Place 1 Tablet on tongue every 8 hours as needed for Nausea. dissolve on tongue. 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 [...] as of this encounter (statuses as of 08/23/2024) Immunizations Name Administration Dates Next Due COVID-19 mRNA, LNP-s, No Pre serve, 2-Dose Series ([employer]ars[employer]) 06/17/2021,11/14/2020,10/24/2020 Covid-19, Mrna, Lnp-s, Pf, B ivalent, [...] 06/15/2024 Does the household have a re lar [...] AM EDT documented as of this encounter Functional Status * Are you [...] of Assessment Author No 11/05/2015 1:21 AM MAURAT Marjorie Santiago RN * Do you have [...] of Assessment Author No 11/05/2015 1:21 AM EDMarjorie Maharaj RN documented as of this encounter Mental Status * Because of a physical, mental, or emotional condition, do you have serious difficulty concentrating, remembering, or making decisions? (5 years old or older) Answer Entry Date Author No 11/05/2015 1:21 AM Marjorie Mclaughlin RN documented in this encounter Miscellaneous Notes * Telephone Encounter - Miguelina Tom LPN - 05/24/2024 11:58 AM EDT HH Admission/Start of Care Admission/Start of Care: Davida DUMONT, Calling from: [facility] Patient was Admitted to: [facility], for: pneumonia sbo Referral received for: Group Home, PT, and OT Planned start of care date:Yes, Date 05/21 Next OT visit(s) on 05/25 They will call with any updates or additional concerns from the upcoming HH visit. Last Office Visit: 05/24/2024 Has patient been scheduled or seen in the office for a follow up visit: Yes- on05/24 Advised that orders will be signed by Delbert aguilar and to fax to the office for signature. PT Plan of care: 2 times per week for 4 weeks: Then 1 times a week for 4 weeks Focusing on: balance gait strengthening. documented in this encounter Plan of Treatment Upcoming Encounters Date Type Department Care Team (Late st Contact Info) Description 09/08/2024 8:30 AM EST [facility] [address] [address] [address] Kelly Rosa, RN [address] [place] [address] 09/12/2024 10:30 AM EST Office Visit Cardiology [address] [place] [address] Luiz Pina PA-C [address] [place] [address] 10/16/2024 9:00 AM EST Office Visit Family Medicine [address] [place] [phone] Sandra Goldstein MD [address] [place] [address] [place] [address] 10/24/2024 10:30 AM EST Nurse Only Ancillary [address] [place] [address] [place], Nurse Annual [address] [place] [address] 11/07/2024 9:15 AM EDT Office Visit Urology, [facility] [address] [address] [address] Regan Alejandro MD [address] [place] [address] Health Maintenance Due Date Last Done Comments Diabetic Foot Exam 04/21/2024 04/21/2023, 1 , 05/28/2020, Additional history exists COVID-19 Vaccine ( season) 2024 10/01/2022, 06/17/2021, 11/14/2020, Additional history exists CKD PHOS USE SMARTSET 34963 05/29/20240 02/2023, 10/01/2022, 12/04/2020, Additional history exists HbA1c 09/07/2024 03/07/2024, 10/21, 05/29/2023, Additional history exists Adult Wellness Visit 10/20/2024 10/21/2023 Depression Screening 10/20/2024 10/21/2023 B-12 11/07/2024 11/08/2023, 04/2023, 12/04/2020, Additional history exists Albumin/Creatinine Ratio 11/08/2024 024, 10/08/2022, 11/30/2017, Additional history exists GFR 11/22/2024 05/24/2024, 04/23, 03/07/2024, Additional history exists Diabetic Eye Exam 01/24/2025 01/25/2024, , 06/15/2023, Additional history exists TSH 05/10/2025 05/10/2024, 02/20, 07/01/2023, Additional history exists CKD HGB USE SMARTSET 90274 05/24/202505/24, 05/24/2024, 05/10/2024, Additional history exists DTap/Tdap Vaccines (3 - Td or Tdap) 03/27/2033 03/27/2023, 03/08/2013 Pneumococcal Vaccine: 50+ Years Completed 08/13/2015, 07/07/2012 Zoster Vaccines Completed [...] this encounter Medical Devices Implanted Type Area Mill Oiler Device Identifier Shelf Expiration Date Model / Serial / Lot Sut Steel 6 M654g - [id number] Implanted:Qty: 4 on 10/21/2015 by Riki Chan MD [place] [facility] [place]A: Chest JNJ : [employer] 07/22/2020 M654G / / [id number] Marker Coronary Amgm-Sd - [id number] Implanted:Qty: 1 on 10/21/2015 by Riki Chan MD at [place] [facility] [place] N/A: Chest [employer] 08/22/2018 AM-SD / / [id number] Marker Coronary Amgm-Sd - [id number] Implanted:Qty: 1 on 10/21/2015 by Riki Chan MD at [place] [facility] [place] Chest [employer] 06/22/2018 AM-SD / / [id number] documented as of this encounter Advance Directives [...] and were consensually agreed upon. Care Teams Measurement Supervisor Relationship Specialty Start Date End Date Sandra Goldstein MD [address] [place] [address] [place] [address] PCP - General Family Medicine 02/22/19 documented as of this encounter
--- OUTSIDE RECORDS SUMMARY | 2024-09-04 23:18 | External Medical Summary | Summary of Care ---
Author Name Unknown Organization [facility] Address [address] [place] [address] Phone [phone] Care Team Providers Care Legal Instruments Examiner Name Role Phone Sandra Goldstein MD Primary Care Prov ider Reason for Visit * Reason Onset Date Comments Appointment 08/08/2024 Encounter Details Date Type Department Care Team (Late st Contact Info) Description 08/08/2024 Telephone [facility] [place] [address] [place], [place] [phone] Aleida Elder OSA [address] [place] [address] Appointment (//) Allergies Active Allergy Reactions Criticality Noted Date Comments Lisinopril Cough Low 12/21/2012 documented as of this encounter (statuses as of 08/08/2024) Medications Vitamin D3 25 MCG (1000 UT) [...] 3 06/15/2024 1:38 PM EDT 4 Active [place] 3 1000 MG Oral Capsule Take by [...] as of this encounter (statuses as of 08/08/2024) Active Problems Problem Noted Date Diagnosed Date [...] as of this encounter (statuses as of 08/08/2024) Resolved Problems Problem Noted Date Diagnosed Date [...] CHF 05/26/2019 05/22/2022 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 [...] as of this encounter (statuses as of 08/08/2024) Immunizations Name Administration Dates Next Due COVID-19 mRNA, LNP-s, No Pre serve, 2-Dose Series ([employer]) 06/17/2021,11/14/2020,10/24/2020 Covid-19, Mrna, Lnp-s, Pf, B ivalent, [...] of Assessment Author No 11/05/2015 1:21 AM Marjorie Mclaughlin RN * Do you have difficulty dressing [...] of Assessment Author No 11/05/2015 1:21 AM Marjorie Mclaughlin RN documented as of this encounter Mental Status * Because of a physical, mental, or emotional condition, do you have serious difficulty concentrating, remembering, or making decisions? (5 years old or older) Answer Entry Date Author No 11/05/2015 1:21 AM Marjorie Mclaughlin RN documented in this encounter Miscellaneous Notes * Telephone Encounter - Aleida Elder OSA - 08/08/2024 9:35 AM EST Incoming call from Tarun to cx and rs the appt with RNPRAVEENA on 08/22 as it conflicts with other appt hehas and I found 09/08@830 and he was agreeable to this one documented in this encounter Plan of Treatment Upcoming Encounters Date Type Department Care Team (Late st Contact Info) Description 09/08/2024 8:30 AM EST Home Visit [facility] [address] [address] [address] Kelly Rosa RN [address] [address] 09/12/2024 10:30 AM EST Office Visit Cardiology [address] [place] [address] Luiz Pina PA-C [address] [place] [address] 10/16/2024 9:00 AM EST Office Visit Family Medicine [address] [place] [phone] Sandra Goldstein MD [address] [place] [address] [place] [address] 10/24/2024 10:30 AM EST Nurse Only Ancillary [address] [place] [address] [place], Nurse Annual Wellness [address] [place] [address] [place] [address] 11/07/2024 9:15 AM EDT Office Visit Urology, [facility] [address] [place] [address] Regan Alejandro MD [address] [place] [address] Health Maintenance Due Date Last Done Comments Diabetic Foot Exam 04/21/2024 04/21/2023, 1 , 05/28/2020, Additional history exists COVID-19 Vaccine ( season) 2024 10/01/2022, 06/17/2021, 11/14/2020, Additional history exists CKD PHOS USE SMARTSET 48856 05/29/202402/2023, 10/01/2022, 12/04/2020, Additional history exists HbA1c 09/07/2024 03/07/2024, 10/21, 05/29/2023, Additional history exists Adult Wellness Visit 10/20/2024 10/21/2023 Depression Screening 10/20/2024 10/21/2023 B-12 11/07/2024 11/08/2023, 04/2023, 12/04/2020, Additional history exists Albumin/Creatinine Ratio 11/08/202411/08/2 024, 10/08/2022, 11/30/2017, Additional history exists GFR 11/22/2024 05/24/2024, 04/23, 03/07/2024, Additional history exists Diabetic Eye Exam 01/24/2025 01/25/2024, , 06/15/2023, Additional history exists TSH 05/10/2025 05/10/2024, 02/20, 07/01/2023, Additional history exists CKD HGB USE SMARTSET 99034 05/24/202505/24, 05/24/2024, 05/10/2024, Additional history exists DTap/Tdap [...] this encounter Medical Devices Implanted Type Area Scrap Stripper Hand Device Identifier Shelf Expiration Date Model / Serial / Lot Sut Steel 6 M654g - [id number] Implanted:Qty: 4 on 10/21/2015 by Riki Chan MD at [place] [facility] [place] N/A: Chest JNJ : [employer] 07/22/2020 M654G / / [id number] Marker Coronary Amgm-Sd - [id number] Implanted:Qty: 1 on 10/21/2015 by Riki Chan MD at [place] [facility] [place] N/A: Chest [employer] 08/22/2018 AMGM-SD / / [id number] Marker Coronary Amgm-Sd - [id number] Implanted:Qty: 1 on 10/21/2015 by Riki Chan MD at [place] [facility] [place] Chest [employer] 06/22/2018 [facility] / / [id number] documented as of this encounter Advance Directives [...] and were consensually agreed upon. Care Teams Legal Instruments Examiner Relationship Specialty Start Date End Date Sandra Goldstein MD [address] [place] [address] [place] [phone] PCP - General Family Medicine 02/22/19 documented as of this encounter
--- OUTSIDE RECORDS SUMMARY | 2024-09-04 23:18 | External Medical Summary | Summary of Care ---
Author Name Unknown Organization [facility] Address [address] [facility] [place] [address] Phone [phone] Care Team Providers Care Developmental Writing Instructor Name Role Phone Sandra Goldstein MD Primary Care Prov ider Encounter Details Date Type Department Care Team (Late st Contact Info) Description 06/29/2024 Population Health External Data Unspecified Department Allergies [...] mouth in the morning. 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 Never true 06/15/20 24 Within the past 12 months, t [...] Marjorie Mclaughlin RN * Do you have serious difficulty [...] Entry Date Author No 11/05/2015 1:21 AM EDMarjorie Maharaj RN documented in this encounter Plan of Treatment Upcoming Encounters Date Type Department Care Team (Late st Contact Info) Description 08/22/2024 2:30 PM EST Home Visit [facility] [address] [place] [address] Kelly Rosa RN [address] [facility] [place] [address] 09/12/2024 10:30 AM EST Office Visit Cardiology [address] [place] [address] Luiz Pina PA-C [address] [facility] [place] [address] 10/16/2024 9:00 AM EST Office Visit Family Medicine [address] [place] [phone] Sandra Goldstein MD [address] [place] [address] [place] [address] 10/24/2024 10:30 AM EST Nurse Only Ancillary [address] [place] [address] Juliann, Nurse [address] [place] [address] 11/07/2024 9:15 AM EDT Office Visit Urology, [facility] [address] [place] [address] Regan Alejandro MD [address] [place] [address] Health Maintenance Due Date Last Done Comments Diabetic Foot Exam 04/21/2024 04/21/2023, 1 , 05/28/2020, Additional history exists COVID-19 Vaccine ( season) 2024 10/01/2022, 06/17/2021, 11/14/2020, Additional history exists CKD PHOS USE SMARTSET 68181 05/29/2024 100 02/2023, 10/01/2022, 12/04/2020, Additional history exists HbA1c 09/07/2024 03/07/2024, 10/21, 05/29/2023, Additional history exists Adult Wellness Visit 10/20/2024 10/21/2023 Depression Screening 10/20/2024 10/21/2023 B-12 11/07/2024 11/08/2023, 04/2023, 12/04/2020, Additional history exists Albumin/Creatinine Ratio 11/08/2024 03/2 024, 10/08/2022, 11/30/2017, Additional history exists GFR 11/22/2024 05/24/2024, 04/23, 03/07/2024, Additional history exists Diabetic Eye Exam 01/24/2025 01/25/2024, , 06/15/2023, Additional history exists TSH 05/10/2025 05/10/2024, 02/20, 07/01/2023, Additional history exists CKD HGB USE SMARTSET 34724 05/24/202505/24, 05/24/2024, 05/10/2024, Additional history exists DTap/Tdap [...] this encounter Medical Devices Implanted Type Area Slitter Creaser Slotter Helper Device Identifier Shelf Expiration Date Model / Serial / Lot Sut Steel 6 M654g - [id number] Implanted:Qty: 4 on 10/21/2015 by Riki Chan MD [place] [facility] [place] N/A: Chest JNJ : [employer] 07/22/2020 M654G / / [id number] Marker Coronary Amgm-Sd - [id number] Implanted:Qty: 1 on 10/21/2015 by Riki Chan MD at [place] [facility] [place] N/A: Chest [employer] 08/22/2018 AMGM-SD / / [id number] Marker Coronary Amgm-Sd - [id number] Implanted:Qty: 1 on 10/21/2015 by Riki Chan MD at [place] [facility] [place] Chest [employer] 06/22/2018 AMGM-SD / / [id number] documented as of this encounter Advance Directives [...] and were consensually agreed upon. Care Teams Developmental Writing Instructor Relationship Specialty Start Date End Date Sandra Goldstein MD [address] [place] [address] [place] [phone] PCP - General Family Medicine 02/22/19 documented as of this encounter
--- OUTSIDE RECORDS SUMMARY | 2024-09-04 23:18 | External Medical Summary | Summary of Care ---
Author Name Unknown Organization [facility] Address [address] [facility] [place] [address] Phone [phone] Care Team Providers Care Canoe Inspector Name Role Phone Sandra Goldstein MD Primary Care Prov ider Encounter Details Date Type Department Care Team (Late st Contact Info) Description 07/03/2024 4:00 PM EST [facility] [address] [facility] [place] [address] Kelly Rosa, RN [address] [facility] [place] [address] Allergies Active Allergy Reactions Criticality Noted Date Comments Lisinopril Cough Low 12/21/2012 documented as of this encounter (statuses as of 07/04/2024) Medications Vitamin D3 25 MCG (1000 UT) [...] mouth in the morning. 90 Tablet 3 04/11/2024 12:34 PM EDT 4 Active Tamsulosin HCl 0.4 MG Oral [...] 3 06/15/2024 1:38 PM EDT 4 Active Ogema 3 1000 MG Oral Capsule Take by mouth daily. 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 (Household - for ages [...] Sign Reading Time Taken Comments Blood Pressure 102/62 07/03/2024 3:07 PM EST Pulse 84 07/03/2024 3:07 PM EST Temperature 36.2 C (97.2 F) 07/03/2024 3:07 PM ES T Respiratory Rate 18 07/03/2024 3:07 PM EST Oxygen Saturation 96% 07/03/2024 3:07 PM EST Inhaled Oxygen Concentration - - Weight - [...] No 11/05/2015 1:21 AM EDMarjorie Maharaj RN * Do you have difficulty dressing or bathing? (5 years old or older) Answer Date of Assessment Author No 11/05/2015 1:21 AM Marjorie Mclaughlin RN * Because of a physical, mental, [...] Marjorie Mclaughlin RN documented in this encounter Progress Notes * Kelly Rosa RN - 07/03/2024 2:53 PM EST Current Concerns: Patient seen for follow up- Afib, CHF, CAD, BHUPINDER- does not use Bipap, Recent Pet scan- prostate Ca localized in prostate. Radiation appointment with [facility]/oncology to discuss options this . Wound healed to LE- discharged from [facility] nurse. Continues with therapy. Reports doing well. Color good. VS wnl Lungs clear bilaterally No sob noted Nonpitting edema to BLE Voiding without difficulty Bowels wnl- per report Appetite fair Taking fluids well. Denies pain. Physical Exam: Physical Exam Constitutional: Appearance: Normal [...] of Systems: Review of Systems Constitutional: Negative. Respiratory: Negative. Gastrointestinal: Negative. Genitourinary: Negative. Musculoskeletal: Negative. Skin: Negative. Neurological: Negative. Hematological: Negative. Psychiatric/Behavioral: Negative. Care Plan Goal Progress: GS - Patient/caregiver will verbalize understanding of anticoagulation therapy in the treatment of atrial fibrillation. (Progressing) Start: 07/04/24 Expected End: 11/01/24 GS - Patient/caregiver will verbalize increased risk of atrial fibrillation in sleep apnea. (Progressing) Start: 07/04/24 Expected End: 11/01/24 GS - Patient/caregiver will verbalize an understanding of diagnosis, treatment and self-management of atrial fibrillation. (Progressing) Start: 07/04/24 Expected End: 11/01/24 GS - Patient/caregiver will verbalize proper technique in daily weight monitoring with heart failure. (Progressing) Start: 07/04/24 Expected End: 11/01/24 GS - Patient/caregiver will verbalize importance of fluid restriction compliance in the management of heart failure (Progressing) Start: 07/04/24 Expected End: 11/01/24 GS - Patient/caregiver will notify provider with weight gain with heart failure as per established limits set by provider. (Progressing) Start: 07/04/24 Expected End: 11/01/24 Orders Placed: No orders of the defined types were placed in this encounter. Medications Given: Care Gaps: Care Gaps Care gaps closed this contact:: Education (07/04/24 7748) Type of education: Clinical/disease (07/04/24 2237) documented in this encounter Plan of Treatment Upcoming Encounters Date Type Department Care Team (Late st Contact Info) Description 08/22/2024 2:30 PM EST [facility] Visit [place] [facility] [place] [address] [place] [address] Kelly Rosa, RN [address] [place] [address] 09/12/2024 10:30 AM EST Office Visit Cardiology [address] [place] [address] Luiz Pina PA-C [address] [place] [address] 10/16/2024 9:00 AM EST Office Visit Family Medicine [address] [place] [phone] Sandra Goldstein MD [address] [place] [address] [place] [address] 10/24/2024 10:30 AM EST Nurse Only Ancillary [address] [place] [address] [place], Nurse Annual [facility]ness [address] [place] [address] [place] [address] 11/07/2024 9:15 AM EDT Office Visit Urology, [facility] [address] [place] [address] Regan Alejandro MD [address] [place] [phone] Health Maintenance Due Date Last Done Comments Diabetic Foot Exam 04/21/2024 04/21/2023, 1 , 05/28/2020, Additional history exists COVID-19 Vaccine ( season) 2024 10/01/2022, 06/17/2021, 11/14/2020, Additional history exists CKD PHOS USE SMARTSET 54509 05/29/20240 02/2023, 10/01/2022, 12/04/2020, Additional history exists [...] Additional history exists CKD HGB USE SMARTSET 31849 05/24/202505/24, 05/24/2024, 05/10/2024, Additional history exists DTap/Tdap [...] encounter Medical Devices Implanted Type Area Senior Regulatory Affairs Specialist Device Identifier Shelf Expiration Date Model / Serial / Lot Sut Steel 6 [id number] - [id number] Implanted:Qty: 4 on 10/21/2015 by Riki Chan MD at [place] [facility] [place]/A: Chest JNJ : [employer] 07/22/2020 [id number] / / [id number] Marker Coronary Amgm-Sd - [id number] Implanted:Qty: 1 on 10/21/2015 by Riki Chan MD at [place] [facility] [place] N/A: Chest [employer] 08/22/2018 AMGM-SD / / [id number] Marker Coronary Amgm-Sd - [id number] Implanted:Qty: 1 on 10/21/2015 by Riki Chan MD at [place] [facility] Chest [employer] 06/22/2018 AMGM-SD / / [id number] documented as of this encounter Advance Directives [...] and were consensually agreed upon. Care Teams Canoe Inspector Relationship Specialty Start Date End Date Sandra Goldstein MD [address] [place] [address] [place] [phone] PCP - General Family Medicine 02/22/19 documented as of this encounter
--- OUTSIDE RECORDS SUMMARY | 2024-09-04 23:18 | External Medical Summary | Summary of Care ---
Author Name Unknown Organization [facility] Address [address] [facility] [place] [address] Phone [phone] Care Team Providers Care Labor Relations Consultant Name Role Phone Sandra Goldstein MD Primary Care Prov ider Encounter Details Date Type Department Care Team (Late st Contact Info) Description 08/24/2024 Population Health External Data Unspecified Department Allergies Active Allergy Reactions Criticality Noted Date Comments Lisinopril Cough Low 12/21/2012 documented as of this encounter (statuses as of 08/30/2024) Medications Vitamin D3 25 MCG (1000 UT) [...] 3 06/15/2024 1:38 PM EDT 4 Active Ringwood 3 1000 MG Oral Capsule Take by [...] as of this encounter (statuses as of 08/30/2024) Active Problems Problem Noted Date Diagnosed Date [...] as of this encounter (statuses as of 08/30/2024) Resolved Problems Problem Noted Date Diagnosed Date [...] CHF 05/26/2019 05/22/2022 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 cafeteria or lunchroom checker 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 [...] as of this encounter (statuses as of 08/30/2024) Immunizations Name Administration Dates Next Due COVID-19 [...] Description 09/08/2024 8:30 AM EST [facility] Visit [facility] [address] [facility] [place] [address] Kelly Rosa RN [address] [place] [address] 09/12/2024 10:30 AM EST Office Visit Cardiology [address] [place] [address] Luiz Pina PA-C [address] [facility] [place] [address] 10/16/2024 9:00 AM EST Office Visit Family Medicine [address] [place] [phone] Sandra Goldstein MD [address] [place] [address] [place] [address] 10/24/2024 10:30 AM EST Nurse Only Ancillary [address] [place] [address] Juliann, Nurse [address] [place] [address] 11/07/2024 9:15 AM EDT Office Visit Urology, [facility] [address] [place] [address] Regan Alejandro MD [address] [place] [address] Health Maintenance Due Date Last Done Comments Diabetic Foot Exam 04/21/2024 04/21/2023, 1 , 05/28/2020, Additional history exists COVID-19 Vaccine ( season) 2024 10/01/2022, 06/17/2021, 11/14/2020, Additional history exists CKD PHOS USE SMARTSET 89003 05/29/20240 02/2023, 10/01/2022, 12/04/2020, Additional history exists [...] Additional history exists CKD HGB USE SMARTSET 63739 05/24/202505/24, 05/24/2024, 05/10/2024, Additional history exists DTap/Tdap [...] this encounter Medical Devices Implanted Type Area Registered Veterinary Technician Device Identifier Shelf Expiration Date Model / Serial / Lot Sut Craig 6 M654g - [id number] Implanted:Qty: 4 on 10/21/2015 by Riki Chan MD at [place] [facility] [place] N/A: Chest JNJ : [employer] 07/22/2020 M654G / / [id number] Marker Coronary Amgm-Sd - [id number] Implanted:Qty: 1 on 10/21/2015 by Riki Chan MD at [place] [facility] [place] N/A: Chest [employer] 08/22/2018 AMGM-SD / / [id number] Marker Coronary Amgm-Sd - [id number] Implanted:Qty: 1 on 10/21/2015 by Riki Chan MD at [place] [facility] [place] Chest [employer] 06/22/2018 AMGM-SD / / [id number] documented as of this encounter Advance Directives [...] and were consensually agreed upon. Care Teams Labor Relations Consultant Relationship Specialty Start Date End Date Sandra Goldstein MD [address] [place] [address] [place] [phone] PCP - General Family Medicine 02/22/19 documented as of this encounter
--- OUTSIDE RECORDS SUMMARY | 2024-09-04 23:19 | External Medical Summary | Summary of Care ---
Author Name Unknown Organization [facility] Address [address] [facility] [place] [address] Phone [phone] Care Team Providers Care Wafer Fabrication Technician Name Role Phone Sandra Goldstein MD Primary Care Prov ider Reason for Referral * Evaluate & Treat - Unlimited Visits (Within 30 days (routine)) - Authorized Specialty Diagnoses / Procedures Referred By Contac t Referred To Contact Radiation Oncology Diagnoses Prostate cancer (HCC) Regan Alejandro MD [address] [address] Referral ID Status Reason Start Date Expiration Date Visits Requested Visits Authorized [id number] Authorized Specialty Services Required 4 [phone] Question Answer Referral Priority Within 30 days (routine) Where should this appointment be scheduled? External - [facility] Comments New diagnosis of Salma 4+4 CAP, no mets on PET scan Reason for Visit * Reason Comments Follow Up Encounter Details Date Type Department Care Team (Late st Contact Info) Description 06/21/2024 8:15 AM EDT Office Visit Urology, [address] [place] [address] Regan Alejandro MD [address] [address] Prostate cancer (HCC)*; Elevated prostate specific antigen (PSA) Allergies Active Allergy Reactions Criticality Noted Date Comments Lisinopril Cough Low 12/21/2012 documented as of this encounter (statuses as of 06/21/2024) Medications Medication Sig Dispensed Refills Start Date End Date Status Vitamin D3 25 MCG (1000 UT) Oral Tablet (Vitamin D3)Indications:Vitam in D deficiency Take by mouth 2 Tablets in the morning. 180 Tablet 1 11/21/2021 Active Clotrimazole 1 % External Cream (Lotrimin) Apply topically to affected area 2 times a day . 60 g 2 03/16/2022 Active Additional Information Patient not taking.Reported on 06/05/2024 Nitroglycerin 0.4 MG Sublingual Tablet Sublingual (Nitrostat)Indicatio [...] capsule daily 90 Capsule 3 10/19/2023 Active Metoprolol Succinate ER 50 [...] Oral Capsule Take by mouth daily. Active [place] 3 1000 MG Oral Capsule Take by mouth daily. Active Levothyroxine Sodium 112 MCG Oral Tablet (Levoxyl)Indications :Hypothyroidism due to acquired atrophy of thyroid Take 1 Tablet by mouth daily first thing in the morning at least 30 min prior to breakfast or other meds 90 Tablet 3 04/11/2024 Active Nystatin 891756 UNIT/GM External CreamIndications:Can didal diaper dermatitis Apply topically to affected area 2 times a day for two weeks. 30 g 5 04/11/2024 Active Additional Information Patient not taking.Reported on 06/05/2024 Bicalutamide 50 MG Oral Tablet (Casodex) Take 1 Tablet by mouth in the morning. 30 Tablet 3 05/02/2024 Active Ondansetron 8 MG Oral Tablet Disintegrating (Zofran) Place 1 Tablet on tongue every 8 hours as needed for Nausea. dissolve on tongue. 30 Tablet 05/08/2024 Active Additional Information Patient not taking.Reported on 05/21/2024 Hospital, Clinic, or Other Facility Administered Medication Ordered Dose Route Frequency Start Date End Date Status Nystatin (Nystop) powderIndications:Tinea cruris TOP BID (.AM/PM) 06/10/2021 Active documented as of this encounter (statuses as of 06/21/2024) Active Problems Problem Noted Date Diagnosed Date Cellulitis of right lower extremity 05/26/2024 Elevated [...] as of this encounter (statuses as of 06/21/2024) Resolved Problems Problem Noted Date Diagnosed Date [...] CHF 05/26/2019 05/22/2022 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 veterinary surgeon 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 Patient's past notes and pathology report are reviewed. Patient was started on bicalutamide Prostate Cancer: Patient was originally seen for evaluation of an elevated PSA. Previous evaluation includes referral . Patient has been on tamsulosin. He reports slow stream. Bicalutamide started April 2024. PSA Results: Lab Results Component Value Date/Time PSA - [facility] 2.42 05/24/2024 11:48 AM PSA - [facility] 20.81 (H) 03/07/2024 12:34 PM PSA - [facility] 14.71 (H) 09/27/2023 11:07 AM PSA - [facility] 0.53 09/12/2018 01:56 PM PSA SCREENING 0.32 03/25/2001 09:51 AM PSA-OUTSIDE LAB 0.37 05/26/2014 12:00 AM PSA-OUTSIDE LAB 0.34 05/28/2012 12:00 AM PET May 2024: IMPRESSION: 1. Piflufolastat focus within the left basilar peripheral zone, correlate with the biopsy proven prostate cancer. 2. No [id number] PET-CT evidence for metastatic prostate cancer. Prostate biopsy Apr 2024: Final Diagnosis Prostate Biopsy Part Location Core # Core (cm) Diagnosis [place] Grade Group PN inv % DUKEY RIDER A Left base 2 4.1 Prostatic acinar adenocarcinoma 4 + 4 = 8 4 Yes 90 B Left mid 2 4.2 Prostatic acinar adenocarcinoma 4 + 4 = 8 4 Yes 90 C Left apex 2 4.5 Prostatic acinar adenocarcinoma 4 + 4 = 8 4 No 40 D Right base 2 3.0 Prostatic acinar adenocarcinoma 4 + 4 = 8 4 No 30 E Right mid 2 3.9 Prostatic acinar adenocarcinoma 4 + 4 = 8 4 Yes 25 F Right apex 2 3.3 Prostatic acinar adenocarcinoma 4 + 4 = 8 4 No 25 CORES with CARCINOMA = 12 Current Outpatient Medications Medication Sig Dispense Refill Vitamin D3 25 MCG (1000 UT) Oral Tablet (Vitamin D3) Take by mouth 2 Tablets in the morning. 180 Tablet 1 Clotrimazole 1 % External Cream (Lotrimin) Apply topically to affected area 2 times a day . (Patient not taking: Reported on 06/05/2024) 60 g 2 Nitroglycerin 0.4 MG Sublingual Tablet Sublingual (Nitrostat) place 1 tablet under the tongue every5 minutes as needed for pain, chest. up to 3 doses in 15 minutes 25 Tablet 0 Vitamin C 500 MG Oral Tablet Chewable Take 1 Tablet by mouth in the morning. (Patient not taking: Reported on 06/15/2024) Multi-Vitamins Oral Tablet Take 1 Tablet by mouth in the morning. Clopidogrel Bisulfate 75 MG Oral Tablet (pLAVix) Take 1 Tablet by mouth in the morning. 90 Tablet 3 Tamsulosin HCl 0.4 MG Oral Capsule (Flomax) Take one capsule daily 90 Capsule 3 Metoprolol Succinate ER 50 MG Oral Tablet Extended Release 24 Hour (toPROL XL) Take 1 Tablet by mouth 2 times a day. 180 Tablet 3 Amiodarone HCl 200 MG Oral Tablet (Cordarone) Take 1 Tablet by mouth in the morning. 100 Tablet 3 Furosemide 40 MG Oral Tablet (Lasix) Take 1 Tablet by mouth in the morning. 90 Tablet 3 Potassium Chloride Valentina ER 10 MEQ Oral Tablet Extended Release Take 1 Tablet by mouth in the morning. 90 Tablet 3 Apixaban 2.5 MG Oral Tablet (Eliquis) Take 1 Tablet by mouth in the morning and 1 Tablet before bedtime. 180 Tablet 3 Quercetin 500 MG Oral Capsule Take by mouth daily. (Patient not taking: Reported on 06/15/2024) L-Carnitine 500 MG Oral Capsule Take by mouth daily. (Patient not taking: Reported on 06/15/2024) Oriska 3 1000 MG Oral Capsule Take by mouth daily. Levothyroxine Sodium 112 MCG Oral Tablet (Levoxyl) Take 1 Tablet by mouth daily first thing in the morning at least 30 min prior to breakfast or other meds 90 Tablet 3 Nystatin 920007 UNIT/GM External Cream Apply topically to affected area 2 times a day for two weeks. (Patient not taking: Reported on 06/05/2024) 30 g 5 Bicalutamide 50 MG Oral Tablet (Casodex) Take 1 Tablet by mouth in the morning. 30 Tablet 3 Ondansetron 8 MG Oral Tablet Disintegrating (Zofran) Place 1 Tablet on tongue every 8 hours as needed for Nausea. dissolve on tongue. (Patient not taking: Reported on 05/21/2024) 30 Tablet 0 Current Facility-Administered Medications Medication Dose Route Frequency Provider Last Rate Last Admin Nystatin (Nystop) powder Topical BID(AM/PM) Sandra Goldstein MD Review of patient's allergies indicates: Allergen Reactions Lisinopril Cough Social History: Social History Tobacco Use Smoking status: Never Smokeless tobacco: Never Substance Use Topics Alcohol use: No Vaping/E-Cigarette Use Vaping/E-Cigarette Use Never User Vaping/E-Cigarette Substances Vaping/E-Cigarette Devices Family History Problem Relation Name Age of Onset Diabetes Mother Lived to be 94 Heart Disorder Mother CHF Alcohol and Other Disorders Associated Father MVA at 58-59 Heart Disorder Brother [place] Gastro-intestinal disorder Sister Crohn's Heart Disorder Son [facility] [place] [facility] 47, [place] Gastro-intestinal disorder Daughter Crohn's Past Surgical History: Procedure Laterality Date ARTHROPLASTY KNEE TOTAL 2004 Right--[place] CABG, ARTERIAL, SINGLE N/A 10/21/2015 CORONARY ARTERY BYPASS GRAFT USING ARTERY 1 GRAFT performed by Riki Chan MD at OR [facility] CABG, ARTERY-VEIN, TWO 10/21/2015 CORONARY ARTERY BYPASS GRAFT ARTERIAL AND VENOUS 2 GRAFTS performed by Riki Chan MD at OR [facility] COLONOSCOPY 11/18/2012 tubulovillous adenoma x 2--repeat 3 yrs; Dr. Brittaney OGDEN,VIDEO ASSIST HARVEST PENELOPE 10/21/2015 ENDOSCOPY VIDEO ASSISTED HARVEST VEIN performed by Riki Chan MD at OR [facility] VA REPAIR ENTROPION: EXTENSIVE(EG,TARSAL STRIP OR CAPSULOPALPEBRAL FASCIA REPAIRS OPERATION) Left 10/20/2023 Dr. Paez-Lateral tarsal strip [facility] VA REPAIR ENTROPION: EXTENSIVE(EG,TARSAL STRIP OR CAPSULOPALPEBRAL FASCIA REPAIRS OPERATION) Right 05/03/2024 Dr. Paez-RLL entropion repair RECONSTRUCT/REPLACE SHOULDER JOINT 2009 Right--[facility] RECONSTRUCT/REPLACE SHOULDER JOINT Left 11/2016 Dr. Chatterjee REMOVAL OF KIDNEY STONE, UP TO 2CM X 2, Lithotripsy REPAIR INITIAL INGUINAL HERNIA REDUCIBLE AGE 5 OR MORE 1952 VASC DUPLEX VENOUS UE UNILAT Left 01/07/2017 no DVT Past Medical History: Diagnosis Date Arm DVT [...] of lower extremity 11/12/2015 Vitamin D deficiency Patient Active Problem List Diagnosis History of [...] to acquired atrophy of thyroid Elevated PSA Cellulitis of right lower extremity Constitutional: (-) fever and (-) chills ENT: (+) hearing loss Abdominal/GI: (-) abdominal pain and (-) diarrhea Male : see HPI Musculoskeletal: (+) muscle weakness Neurology: (+) loss of balance Psychiatry: (-) substance abuse Physical Exam Nursing note reviewed. Constitutional: General: He is not in acute distress. Appearance: He is not ill-appearing or toxic-appearing. Comments: Using walker HENT: Head: Normocephalic. Right Ear: External ear normal. Left Ear: External ear normal. Nose: Nose normal. Mouth/Throat: Mouth: Mucous membranes are moist. Eyes: Extraocular Movements: Extraocular movements intact. Cardiovascular: Pulses: Normal pulses. Pulmonary: Effort: Pulmonary effort is normal. No respiratory distress. Abdominal: General: There is no distension. Palpations: Abdomen is soft. Skin: Coloration: Skin is not pale. Neurological: Mental Status: He is oriented to person, place, and time. Motor: Weakness present. Gait: Gait abnormal. Psychiatric: Behavior: Behavior normal. Thought Content: Thought content normal. Impression/Plan: 83 yo male with new diagnosis of Salma 4+4 CAP, no extraprostatic disease. Lengthy discussion held with patient today regarding his diagnosis of prostate cancer. [place] grading system, staging, need for imaging and pathophysiology of prostate cancer reviewed. Risks and benefits of various treatment modalities including active surveillance, radical prostatectomy includingrobotic and open prostatectomy, and radiation treatment modalities including external beam radiation therapy and brachytherapy implant are reviewed. Seen the negative PSMA scan and comorbidities I think consideration of XRT would be reasonable. PSA improving on monotherapy so far. Will arrange for Rad Onc consult. Questions are answered and patient is guided toward sources of information which might be helpful. RTO in 3 months with PSA. Regan Alejandro MD 7:24 AM 06/21/2024 documented in this encounter Nursing Notes * Madai Bentley LPN - 06/21/2024 8:06 AM EDT 06/19 PSMA scan results PSA Results: Lab Results Component Value Date/Time PSA - [facility] 2.42 05/24/2024 11:48 AM PSA - [facility] 20.81 (H) 03/07/2024 12:34 PM PSA - [facility] 14.71 (H) 09/27/2023 11:07 AM PSA - [facility] 0.53 09/12/2018 01:56 PM PSA SCREENING 0.32 03/25/2001 09:51 AM PSA-OUTSIDE LAB 0.37 05/26/2014 12:00 AM PSA-OUTSIDE LAB 0.34 05/28/2012 12:00 AM documented in this encounter Plan of Treatment Upcoming Encounters Date Type Department Care Team (Late st Contact Info) Description 06/24/2024 9:00 AM EDT Office Visit Family Practice [facility] [address] [address] Sandra Goldstein MD [address] [place] [address] [place] [address] 07/03/2024 4:00 PM EST [facility] Visit [facility] [place], [facility] [address] [address] Kelly Rosa, JULIA [address] [address] 09/12/2024 10:30 AM EST Office Visit Cardiology [address] [place] [address] Luiz Pina PA-C [address] [place] [address] 10/24/2024 10:30 AM EST Nurse Only Ancillary [address] [place] [address] [place], Nurse [address] [place] [address] 11/07/2024 9:15 AM EDT Office Visit Urology, [facility] [address] [place] [address] Regan Alejandro MD [address] [address] Scheduled Orders Name Type Priority Associated Diagnoses Orde r Schedule PSA Lab Routine Prostate cancer (HCC) Elevated prostate specific antigen (PSA) Expected: 09/21/2024 (Approximate), Expires: 06/21/2025 Scheduled Referrals Name Type Priority Associated Diagnoses Orde r Schedule RADIATION/ONCOLOGY REFERRAL OP Referral Within 30 days (routine) Prostate cancer (HCC) Ordered: 06/21/2024 Health Maintenance Due Date Last Done Comments Diabetic Foot Exam 04/21/2024 04/21/2023, 1 , 05/28/2020, Additional history exists COVID-19 Vaccine ( season) 2024 10/01/2022, 06/17/2021, 11/14/2020, Additional history exists CKD PHOS USE SMARTSET 83822 05/29/202402/2023, 10/01/2022, 12/04/2020, Additional history exists HbA1c [...] Additional history exists CKD HGB USE SMARTSET 31760 05/24/202505/24, 05/24/2024, 05/10/2024, Additional history exists DTap/Tdap [...] this encounter Medical Devices Implanted Type Area Valve Inspector Device Identifier Shelf Expiration Date Model / Serial / Lot Sut Steel 6 M654g - [id number] Implanted:Qty: 4 on 10/21/2015 by Riki Chan MD at OR [facility] N/A: Chest JNJ : [employer] 07/22/2020 M654G / / [id number] Marker Coronary Amgm-Sd - [id number] Implanted:Qty: 1 on 10/21/2015 by Riki Chan MD at OR [facility] N/A: Chest [employer] 08/22/2018 AMGM-SD / / [id number] Marker Coronary Amgm-Sd - [id number] Implanted:Qty: 1 on 10/21/2015 by Riki Chan MD at OR [facility] Chest [employer] 06/22/2018 [facility] / / [id number] documented as of this encounter Visit Diagnoses Diagnosis Prostate cancer (HCC)- Primary Malignant neoplasm of prostate Elevated prostate specific antigen (PSA) documented in this encounter Advance Directives * [...] and were consensually agreed upon. Care Teams Wafer Fabrication Technician Relationship Specialty Start Date End Date Sandra Goldstein MD [address] [place] [address] [place] [address] PCP - General Family Medicine 02/22/19 documented as of this encounter
--- OUTSIDE RECORDS SUMMARY | 2024-09-04 23:19 | External Medical Summary | Summary of Care ---
Author Name Unknown Organization [facility] Address [address] [facility] [place] [address] Phone [phone] Care Team Providers Care Steamer Tender Name Role Phone Sandra Goldstein MD Primary Care Prov ider Reason for Visit * Reason Onset Date Comments [facility]: Maintenance 06/02/2024 Encounter Details Date Type Department Care Team (Late st Contact Info) Description 06/02/2024 10:45 AM EDT Scheduled Telephone [facility], [facility] [address] [facility] [place] [address] Coordinator, [facility] [place] [address] Allergies Active Allergy Reactions Criticality Noted Date Comments Lisinopril Cough Low 12/21/2012 documented as of this encounter (statuses as of 06/02/2024) Medications Medication Sig Dispensed Refills Start Date [...] Oral Capsule Take by mouth daily. Active [place] 3 1000 MG Oral Capsule Take by mouth daily. Active Levothyroxine Sodium 112 MCG Oral Tablet (Levoxyl)Indications :Hypothyroidism due to acquired atrophy of thyroid Take 1 Tablet by mouth daily first thing in the morning at least 30 min prior to breakfast or other meds 90 Tablet 3 04/11/2024 Active Nystatin 983893 UNIT/GM External CreamIndications:Can didal diaper dermatitis Apply [...] Additional Information Patient not taking.Reported on 05/21/2024 Azithromycin 250 MG Oral Tablet (Zithromax Z-Triston)Indications:Pn eumonia due to infectious organism, unspecified laterality, unspecified part of lung Take two tablets by mouth on first day, then 1 tablet daily until gone 6 Tablet 05/24/2024 Active Cephalexin 500 MG Oral CapsuleIndications:C ellulitis of right lower extremity,Open wound of right lower leg, initial encounter Take 1 Capsule by mouth in the morning and 1 Capsule at noon and 1 Capsule before bedtime. Do all this for 10 days. 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 Objective: 05/26/2024 2:55 PM 05/24/2024 11:14 AM 05/21/2024 12:01 PM 05/12/2024 2:32 PM 05/11/2024 12:15 PM VITALS ACROSS ENCOUNTERS BP 98/60 110/64 122/76 126/74 108/70 Pulse 63 77 68 76 72 Weight 87.5 kg 89.8 kg 90.7 kg 91.4 kg BMI 29.35 BMI 29.35 kg/m2 30.12 kg/m2 30.41 kg/m2 30.64 kg/m2 Remote Patient Monitoring: NONE Oxygen Needs: NO supplemental oxygen needs identified DME Needs: NO DME needs identified Medications: New medication(s) added: Cephalexin ordered by PCP 05/26 Subjective: Condition Status: Improvement in symptoms but not at baseline Current Concerns: Spoke to the pt. Pt states that he continues to have a dry cough. States that he is not really using any cough medicine. Pt states that his PET scan was placed on hold until his cough clears up. Encouraged pt to use guaifenesin as ordered. Pt had a colonoscopy done this week and they noted polyps and a hemorrhoid. Pt denies any further blood in stools Abd soft and non distended. Pt denies any abd pain. Denies any nausea or vomiting. Reports decreased poor appetite. Weight today 188.0 which is 12 lb weight loss since last [facility]. Wt Readings from Last 5 Encounters: 05/26/24 87.5 kg (193 lb) 05/24/24 89.8 kg (198 lb 1 oz) 05/21/24 90.7 kg (200 lb) 05/12/24 91.4 kg (201 lb 8 oz) 03/08/24 95.4 kg (210 lb 6.4 oz) Pt reports that he is drinking fluids well. No s/s of dehydration. Urinating light yellow urine. Denies dry mouth or cracked lips. Denies lightheadedness or dizziness. Disposition: Routed to [facility] and/or [facility] at Home Care Team for further advice Future Visits Scheduled: Future Appointments-next 60 days Date/Time Provider Specialty Dept Phone 06/15/2024 5:30 PM Kelly Rosa RN ising at Home [phone] 06/19/2024 4:00 PM (Arrive by 3:45 PM) Regan Alejandro MD Urology [phone] 06/24/2024 9:00 AM (Arrive by 8:45 AM) Sandra Goldstein MD Family Medicine [phone] 09/12/2024 10:30 AM (Arrive by 10:15 AM) Luiz Pina PA-C Cardiology [phone] 10/24/2024 10:30 AM Nurse Juliann [facility] Ancillary [phone] Kalyn Sarmiento RN } documented in this encounter Plan of Treatment Upcoming Encounters Date Type Department Care Team (Late st Contact Info) Description 06/15/2024 5:30 PM EDT Home Visit [facility] at [facility] [address] [address] Kelly Rosa RN [address] [address] 06/19/2024 4:00 PM EDT Office Visit Urology, [facility] [address] [address] Regan Alejandro MD [address] [place] [address] 06/24/2024 9:00 AM EDT Office Visit Family Practice [facility] [address] [address] [address] Sandra Goldstein MD [address] [place] [address] [place] [address] 09/12/2024 10:30 AM EST Office Visit Cardiology [address] [place] [address] Luiz Pina PA-C [address] [place] [address] 10/24/2024 10:30 AM EST Nurse Only Ancillary [address] [place] [address] Juliann, Nurse Annual [address] [place] [address] Health Maintenance Due Date Last Done Comments Diabetic Foot Exam 04/21/2024 04/21/2023, 1 , 05/28/2020, Additional history exists COVID-19 Vaccine ( season) 2024 10/01/2022, 06/17/2021, 11/14/2020, Additional history exists CKD PHOS USE SMARTSET 60885 05/29/202402/2023, 10/01/2022, 12/04/2020, Additional history exists HbA1c [...] Additional history exists CKD HGB USE SMARTSET 56929 05/24/202505/24, 05/24/2024, 05/10/2024, Additional history exists DTap/Tdap [...] this encounter Medical Devices Implanted Type Area Medical Genetics Director Device Identifier Shelf Expiration Date Model / Serial / Lot Sut Steel 6 M654g - [id number] Implanted:Qty: 4 on 10/21/2015 by Riki Chan MD at OR [facility] N/A: Chest JNJ : [employer] 07/22/2020 M654G / / [id number] Marker Coronary Amgm-Sd - [id number] Implanted:Qty: 1 on 10/21/2015 by Riki Chan MD at OR [facility] N/A: Chest [employer] 08/22/2018 AM[employer]-SD / / [id number] Marker Coronary Amgm-Sd - [id number] Implanted:Qty: 1 on 10/21/2015 by Riki Chan MD at OR [facility] Chest [employer] 06/22/2018 AM[employer]-SD / / [id number] documented as of this encounter Advance Directives [...] and were consensually agreed upon. Care Teams Steamer Tender Relationship Specialty Start Date End Date Sandra Goldstein MD [address] [place] [address] [place] [address] PCP - General Family Medicine 02/22/19 documented as of this encounter
--- OUTSIDE RECORDS SUMMARY | 2024-09-04 23:19 | External Medical Summary | Summary of Care ---
Author Name Unknown Organization [facility] Address [address] [place] [address] Phone [phone] Care Team Providers Care Store Sales Consultant Name Role Phone Sandra Goldstein MD Primary Care Prov ider Reason for Visit * Reason Onset Date Comments Imaging Records Request 06/23/2024 Encounter Details Date Type Department Care Team (Late st Contact Info) Description 06/23/2024 Telephone Radiology Film File [address] [place] [address] Support, Imaging Radiology [address] [place] [address] Imaging Records Request Allergies Active Allergy Reactions Criticality Noted Date Comments Lisinopril Cough Low 12/21/2012 documented as of this encounter (statuses as of 06/23/2024) Medications Medication Sig Dispensed Refills Start Date [...] Oral Capsule Take by mouth daily. Active [place] 3 1000 MG Oral Capsule Take by mouth daily. 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 (Household - for ages [...] encounter Miscellaneous Notes * Telephone Encounter - Babak Nicholas, Epic Support - 06/23/2024 1:28 PM EDT [facility] [employer] requesting 06-19-[address] images be pushed through PACS. [place] Authorization not on file however documentation in the chart can be used to ascertain established care with this provider/office. Images pushed to [employer] PACS external connection. documented in this encounter Plan of Treatment Upcoming Encounters Date Type Department Care Team (Late st Contact Info) Description 06/24/2024 9:00 AM EDT Office Visit Family Practice [facility] [address] [address] [address] Sandra Goldstein MD [address] [place] [address] [place] [address] 07/03/2024 4:00 PM EST Home Visit [facility] [address] [address] [address] Kelly Rosa RN [address] [address] 09/12/2024 10:30 AM EST Office Visit Cardiology [facility] [address] [place] [address] Luiz Pina PA-C [address] [place] [address] 10/24/2024 10:30 AM EST Nurse Only Ancillary [address] [place] [address] [place], Nurse Annual Wellness [address] [place] [address] [place] [address] 11/07/2024 9:15 AM EDT Office Visit Urology, [facility] 132 [facility] [place] [address] Regan Alejandro MD [address] [place] [address] Health Maintenance Due Date Last Done Comments Diabetic Foot Exam 04/21/2024 04/21/2023, 1 , 05/28/2020, Additional history exists COVID-19 Vaccine ( season) 2024 10/01/2022, 06/17/2021, 11/14/2020, Additional history exists CKD PHOS USE SMARTSET 41280 05/29/2024 100 02/2023, 10/01/2022, 12/04/2020, Additional history exists HbA1c 09/07/2024 03/07/2024, 10/21, 05/29/2023, Additional history exists Adult Wellness Visit 10/20/2024 10/21/2023 Depression Screening 10/20/2024 10/21/2023 B-12 11/07/2024 11/08/2023, 04/2023, 12/04/2020, Additional history exists Albumin/Creatinine Ratio 11/08/2024 032 024, 10/08/2022, 11/30/2017, Additional history exists GFR 11/22/2024 05/24/2024, 04/23, 03/07/2024, Additional history exists Diabetic Eye Exam 01/24/2025 01/25/2024, , 06/15/2023, Additional history exists TSH 05/10/2025 05/10/2024, 02/20, 07/01/2023, Additional history exists CKD HGB USE SMARTSET 97317 05/24/202505/24, 05/24/2024, 05/10/2024, Additional history exists DTap/Tdap [...] this encounter Medical Devices Implanted Type Area Signing Teacher Device Identifier Shelf Expiration Date Model / Serial / Lot Sut Steel 6 M654g - [id number] [place]planted:Qty[place] 4 [place] 10[place]21[place] [facility] [place] Chest JNJ : [employer] 07/22/2020 M654G / / [id number] Marker Coronary Amgm-Sd - [id number] Implanted:Qty: 1 on 10/21/2015 [place] Riki Chan [place] [facility] [place]: Chest [employer] 08/22/2018 AMGM-SD / / [id number] Marker Coronary Amgm-Sd - [id number] Implanted:Qty: 1 on 10/21/2015 [place] Riki Chan [place] [facility] [place] [employer] 06/22/2018 AMGM-SD / / [id number] documented as of this encounter Advance Directives [...] and were consensually agreed upon. Care Teams Store Sales Consultant Relationship Specialty Start Date End Date Sandra Goldstein MD [address] [place] [address] [place] [phone] PCP - General Family Medicine 02/22/19 documented as of this encounter
--- OUTSIDE RECORDS SUMMARY | 2024-09-04 23:19 | External Medical Summary | Summary of Care ---
Author Name Unknown Organization [facility] Address [address] [place] [address] Phone [phone] Care Team Providers Care Creative Art Director Name Role Phone Sandra Goldstein MD Primary Care Prov ider Reason for Visit * Reason Onset Date Comments Imaging Records Request 06/21/2024 Encounter Details Date Type Department Care Team (Late st Contact Info) Description 06/21/2024 Telephone Radiology Film File [address] [place] [address] Support, Imaging Radiology [address] [place] [address] Imaging Records Request Allergies Active [...] Oral Capsule Take by mouth daily. Active [place] 3 1000 MG Oral Capsule Take by mouth daily. 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 (Household - for [...] Encounter - Babak Nicholas, Epic Support - 06/21/2024 11:30 AM EDT [facility] [employer] requesting 06-19-[address] images be pushed through PACS. [place] Authorization not on file however documentation in the chart can be used to ascertain established care with this provider/office. Images pushed to [employer] PACS external connection. documented in this encounter Plan of Treatment Upcoming Encounters Date Type Department Care Team (Late st Contact Info) Description 06/24/2024 9:00 AM EDT Office Visit Family Practice [facility] [address] [address] [address] Sandra Goldstein MD [address] [place] [address] [place] [address] 07/03/2024 4:00 PM EST Home Visit [facility] [address] [address] [address] Kelly Rosa RN [address] [address] 09/12/2024 10:30 AM EST Office Visit Cardiology Ernesto Baltazar[address] [place] [address] Luiz Pina PA-C [address] [place] [address] 10/24/2024 10:30 AM EST Nurse Only Ancillary [address] [place] [address] [place], Nurse Annual Wellness [address] [place] [address] [place] [address] 11/07/2024 9:15 AM EDT Office Visit Urology, [facility] 132 [facility] [place] [address] Regan Alejandro MD [address] [place] [address] Health Maintenance Due Date Last Done Comments Diabetic Foot Exam 04/21/2024 04/21/2023, 1 , 05/28/2020, Additional history exists COVID-19 Vaccine ( season) 2024 10/01/2022, 06/17/2021, 11/14/2020, Additional history exists CKD PHOS USE SMARTSET 52845 05/29/2024 100 02/2023, 10/01/2022, 12/04/2020, Additional history [...] Additional history exists CKD HGB USE SMARTSET 24393 05/24/202505/24, 05/24/2024, 05/10/2024, Additional history exists DTap/Tdap [...] this encounter Medical Devices Implanted Type Area Equipment Mechanic Device Identifier Shelf Expiration Date Model / Serial / Lot Sut Steel 6 M654g - [id number] Implanted:Qty: 4 on 10/21/2015 by Riki Chan MD at [place] [facility] [place] N/A: Chest JNJ : [employer] 07/22/2020 M654G / / [id number] Marker Coronary Amgm-Sd - [id number] Implanted:Qty: 1 on 10/21/2015 by Riki Chan MD at [place] [facility] [place] N/A: Chest [employer] 08/22/2018 AMGM-SD / / [id number] Marker Coronary Amgm-Sd - [id number] Implanted:Qty: 1 on 10/21/2015 by Riki Chan MD at [place] [facility] [place] Chest [employer] 06/22/2018 AMGM-SD / / [id number] documented as of this encounter Advance Directives [...] and were consensually agreed upon. Care Teams Creative Art Director Relationship Specialty Start Date End Date Sandra Goldstein MD [address] [place] [address] [place] [phone] PCP - General Family Medicine 02/22/19 documented as of this encounter
--- OUTSIDE RECORDS SUMMARY | 2024-09-04 23:19 | External Medical Summary | Summary of Care ---
Author Name Unknown Organization [facility] Address [address] [facility] [place] [address] Phone [phone] Care Team Providers Care Crm Campaign Manager Name Role Phone Sandra Goldstein MD Primary Care Prov ider Encounter Details Date Type Department Care Team (Late st Contact Info) Description 06/15/2024 5:30 PM EDT [facility] 132 [facility] [place] [address] Kelly Rosa, RN 132 [facility] [place] [address] Allergies Active Allergy Reactions Criticality Noted Date Comments Lisinopril Cough Low 12/21/2012 documented as of this encounter (statuses as of 06/22/2024) Medications Medication Sig Dispensed Refills Start Date [...] 06/05/2024 Nitroglycerin 0.4 MG Sublingual Tablet Sublingual (Nitrostat)Indicati [...] Oral Capsule Take by mouth daily. Active [place] 3 1000 MG Oral Capsule Take by mouth daily. Active Levothyroxine Sodium 112 MCG Oral Tablet (Levoxyl)Indication s:Hypothyroidism due to acquired atrophy of thyroid Take 1 Tablet by mouth daily first thing in the morning at least 30 min prior to breakfast or other meds 90 Tablet 3 04/11/2024 Active Nystatin 606093 UNIT/GM External CreamIndications:Ca ndidal diaper dermatitis Apply [...] 05/21/2024 Azithromycin 250 MG Oral Tablet (Zithromax Z-Triston)Indications:P neumonia due to infectious organism, unspecified laterality, unspecified part of lung Take two tablets by mouth on first day, then 1 tablet daily until gone 6 Tablet 05/24/2024 Discontinu ed(Medicat ion List Clean Up) Hospital, Clinic, or Other Facility Administered Medication Ordered Dose Route Frequency Start Date End Date Status Nystatin (Nystop) powderIndications:Tinea cruris TOP BID (.AM/PM) 06/10/2021 Active documented as of this encounter (statuses as of 06/22/2024) Active Problems Problem Noted Date Diagnosed Date [...] as of this encounter (statuses as of 06/22/2024) Resolved Problems Problem Noted Date Diagnosed Date [...] CHF 05/26/2019 05/22/2022 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 therapy administrative assistant 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 [...] as of this encounter (statuses as of 06/22/2024) Immunizations Name Administration Dates Next Due COVID-19 [...] Sign Reading Time Taken Comments Blood Pressure 92/50 06/15/2024 4:48 PM EDT Pulse 70 06/15/2024 4:48 PM EDT Temperature 36.8 C (98.3 F) 06/15/2024 4:48 PM ED T Respiratory Rate 18 06/15/2024 4:48 PM EDT Oxygen Saturation 96% 06/15/2024 4:48 PM EDT Inhaled Oxygen Concentration - - [...] Progress Notes * Kelly Rosa RN - 06/15/2024 5:07 PM EDT Current Concerns: Patient seen for follow up- Medical history- Afib, CHF, CAD, 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 Reports feeling improved. Receiving services- [facility] VS wnl Lungs clear bilaterally Denies sob No LE edema noted Voiding without difficulty Bowels wnl- per report Appetite fair Drinking fluids with encouragement. Physical Exam: Physical Exam Constitutional: Appearance: Normal appearance. Cardiovascular: Rate and Rhythm: Normal rate. Rhythm irregular. Pulses: Normal pulses. Pulmonary: Effort: Pulmonary effort is normal. Breath sounds: Normal breath sounds. Abdominal: General: Bowel sounds are normal. Palpations: Abdomen is soft. Musculoskeletal: General: Normal range of motion. Skin: General: Skin is warm and dry. Capillary Refill: Capillary refill takes 2 to 3 seconds. Neurological: General: No focal deficit present. Mental Status: He is alert and oriented to person, place, and time. Psychiatric: Mood and Affect: Mood normal. Behavior: Behavior normal. Review of Systems: Review of Systems Constitutional: Negative. HENT: Negative. Cardiovascular: Negative. Gastrointestinal: Negative. Genitourinary: Negative. Skin: Negative. Neurological: Negative. Hematological: Negative. Psychiatric/Behavioral: Negative. Care Plan Goal Progress: GS - Patient will complete all recommended tests for prostate cancer. (Progressing) Start: 05/21/24 Expected End: 06/24/24 PETCT schedule 05/23/24 Goal Note PET scan 06/19/24 Orders Placed: No orders of the defined types were placed in this encounter. Medications Given: Care Gaps: Care Gaps Care gaps closed this contact:: Education (06/15/24 4226) documented in this encounter Plan of Treatment Upcoming Encounters Date Type Department Care Team (Late st Contact Info) Description 06/24/2024 9:00 AM EDT Office Visit Family Practice [facility] [address] [address] [address] Sandra Goldstein MD [address] [place] [address] [place] [address] 07/03/2024 4:00 PM EST Home Visit [facility] [address] [address] [address] Kelly Rosa RN [address] [place] [address] 09/12/2024 10:30 AM EST Office Visit Cardiology [address] [place] [address] Luiz Pina PA-C [address] [place] [address] 10/24/2024 10:30 AM EST Nurse Only Ancillary [address] [place] [address] [place], Nurse [address] [place] [address] 11/07/2024 9:15 AM EDT Office Visit Urology, [facility] [address] [place] [address] Regan Alejandro MD [address] [place] [address] Health Maintenance Due Date Last Done Comments Diabetic Foot Exam 04/21/2024 04/21/2023, 1 , 05/28/2020, Additional history exists COVID-19 Vaccine ( season) 2024 10/01/2022, 06/17/2021, 11/14/2020, Additional history exists CKD PHOS USE SMARTSET 87112 05/29/202402/2023, 10/01/2022, 12/04/2020, Additional history exists HbA1c [...] Additional history exists CKD HGB USE SMARTSET 65680 05/24/202505/24, 05/24/2024, 05/10/2024, Additional history exists DTap/Tdap [...] this encounter Medical Devices Implanted Type Area Pediatric Medical Assistant Device Identifier Shelf Expiration Date Model / Serial / Lot Jenelle Srinivaasn 6 M654g - [id number] Implanted:Qty: 4 on 10/21/2015 by Riki Chan MD at [place] [facility] [place] N/A: Chest JNJ : [employer] 07/22/2020 M654G / / [id number] Marker Coronary Amgm-Sd - [id number] Implanted:Qty: 1 on 10/21/2015 by Riki Chan MD at [place] [facility] [place] N/A: Chest [employer] 08/22/2018 AMGM-SD / / [id number] Marker Coronary Amgm-Sd - [id number] Implanted:Qty: 1 on 10/21/2015 by Riki Chan MD at [place] [facility] [place] Chest [employer] 06/22/2018 AMGM-SD / / [id number] documented as of this encounter Advance Directives [...] and were consensually agreed upon. Care Teams Crm Campaign Manager Relationship Specialty Start Date End Date Sandra Goldstein MD [address] [place] [address] [place] [phone] PCP - General Family Medicine 02/22/19 documented as of this encounter
--- OUTSIDE RECORDS SUMMARY | 2024-09-04 23:19 | External Medical Summary | Summary of Care ---
Author Name Unknown Organization [facility] Address [address] [facility] [address] Phone [phone] Care Team Providers Care Apprentice Lineman Third Step Name Role Phone Sandra Goldstein MD Primary Care Prov ider Reason for Referral * Evaluate & Treat - Unlimited Visits (Within 10 days (routine)) - Authorized Specialty Diagnoses / Procedures Referred By Contac t Referred To Contact Podiatry Diagnoses Type 2 diabetes mellitus with hemoglobin A1c goal of less than 8.0% (HCC) Diabetic ulcer of left midfoot associated with type 2 diabetes mellitus, limited to breakdown of skin (HCC) Sandra Goldstein MD [address] [place] [address] [place] [address] Referral ID Status Reason Start Date Expiration Date Visits Requested Visits Authorized [id number] Authorized Specialty Services Required 06/24/2024 999 999 Question Answer Referral Priority Within 10 days (routine) Where should this appointment be scheduled? [facility] Which condition are you referring this patient for? Wound or ulcer Reason for Visit * Reason Comments Follow Up Encounter Details Date Type Department Care Team (Late st Contact Info) Description 06/24/2024 9:00 AM EDT Office Visit Family [address] [place] [address] Sandra Goldstein MD [address] [place] [address] [place] [address] Type 2 diabetes mellitus with hemoglobin A1c goal of less than 8.0% ([facility])*; Prostate cancer (HCC); Acquired hypothyroidism; Chronic systolic congestive heart failure (HCC); HTN, goal below 150/90; Paroxysmal atrial fibrillation (HCC); Dyslipidemia, goal LDL below 70; Diabetic ulcer of left midfoot associated with type 2 diabetes mellitus, limited to breakdown of skin ([facility]) Allergies Active Allergy Reactions Criticality Noted Date Comments Lisinopril Cough Low 12/21/2012 documented as of this encounter (statuses as of 06/24/2024) Medications Medication Sig Dispensed Refills Start Date End Date Status Vitamin D3 25 MCG (1000 UT) Oral Tablet (Vitamin D3)Indications:Sandra min D deficiency Take by mouth 2 Tablets in the morning. 180 Tablet 1 11/21/2021 Active Nitroglycerin 0.4 MG Sublingual Tablet Sublingual (Nitrostat)Indicati ons:History of myocardial infarction,S/P CABG x 3 place 1 tablet under the tongue every 5 minutes as needed for pain, chest. up to 3 doses in 15 minutes 25 Tablet 04/23/2023 Active Multi-Vitamins Oral Tablet Take 1 Tablet by mouth in the morning. Active Clopidogrel Bisulfate 75 MG Oral Tablet (pLAVix)Indications :PAD (peripheral artery disease) ([facility]) Take 1 Tablet by mouth in the morning. 90 Tablet 3 10/19/2023 Active Tamsulosin HCl 0.4 MG Oral Capsule (Flomax)Indications :BPH without obstruction/lower urinary tract symptoms Take one capsule daily 90 Capsule 3 10/19/2023 Active Metoprolol Succinate ER 50 MG Oral Tablet Extended Release 24 Hour (toPROL XL)Indications:Paro xysmal atrial fibrillation (HCC),HTN, goal below 150/90,Chronic ischemic heart disease,VF (ventricular fibrillation) ([facility]) Take 1 Tablet by mouth [...] before bedtime. 180 Tablet 3 03/23/2024 Active [place] 3 1000 MG Oral Capsule Take by mouth daily. Active Levothyroxine Sodium 112 MCG Oral Tablet (Levoxyl)Indication s:Hypothyroidism due to acquired atrophy of thyroid Take 1 Tablet by mouth daily first thing in the morning at least 30 min prior to breakfast or other meds 90 Tablet 3 04/11/2024 Active Bicalutamide 50 MG Oral Tablet (Casodex) Take 1 Tablet by mouth in the morning. 30 Tablet 3 05/02/2024 Active Ondansetron 8 MG Oral Tablet Disintegrating (Zofran) Place 1 Tablet on tongue every 8 hours as needed for Nausea. dissolve on tongue. 30 Tablet 05/08/2024 Active Clotrimazole 1 % External Cream (Lotrimin) Apply topically to affected area 2 times a day . 60 g 2 03/16/2022 06/24/20 24 Discontinued Vitamin C 500 MG Oral Tablet Chewable Take 1 Tablet by mouth in the morning. 06/24/20 24 Discontinued Quercetin 500 MG Oral Capsule Take by mouth daily. 06/24/20 24 Discontinued L-Carnitine 500 MG Oral Capsule Take by mouth daily. 06/24/20 24 Discontinued Nystatin 514243 UNIT/GM External CreamIndications:Ca ndidal diaper dermatitis Apply topically to affected area 2 times a day for two weeks. 30 g 5 04/11/2024 06/24/20 24 Discontinued Cephalexin 500 MG Oral CapsuleIndications: Cellulitis of right lower extremity,Open wound of right lower leg, initial encounter Take 1 Capsule by mouth in the morning and 1 Capsule at noon and 1 Capsule before bedtime. Do all this for 10 days. 30 Capsule 05/26/2024 06/24/20 24 Discontinued Hospital, Clinic, or Other Facility Administered Medication Ordered Dose Route Frequency Start Date End Date Status Nystatin (Nystop) powderIndications:Tinea cruris TOP BID (.AM/PM) 06/10/2021 Active documented as of this encounter (statuses as of 06/24/2024) Active Problems Problem Noted Date Diagnosed Date [...] as of this encounter (statuses as of 06/24/2024) Resolved Problems Problem Noted Date Diagnosed Date [...] as of this encounter (statuses as of 06/24/2024) Immunizations Name Administration Dates Next Due COVID-19 mRNA, LNP-s, No Pre serve, 2-Dose Series (Any.DO) 06/17/2021,11/14/2020,10/24/2020 Covid-19, Mrna, Lnp-s, Pf, B ivalent, [...] Never Smokeless Tobacco: Never Tobacco Cessation:Counseling Given: Yes Alcohol Use Standard Drinks/Week Comments No 0 [...] Sign Reading Time Taken Comments Blood Pressure 108/64 06/24/2024 8:51 AM EDT Pulse 80 06/24/2024 8:51 AM EDT Temperature 36 C (96.8 F) 06/24/2024 8:51 AM EDT Respiratory Rate 16 06/24/2024 8:51 AM EDT Oxygen Saturation - - Inhaled Oxygen Concentration - - Weight 85.7 kg (189 lb) 06/24/2024 8:51 AM EDT Height 172.7 cm (5' 8") 06/24/2024 8:51 AM EDT Body Mass Index 28.74 06/24/2024 8:51 AM EDT documented in this encounter Functional Status Functional [...] No 11/05/2015 documented as of this encounter Patient Instructions * Patient Instructions* Sandra Goldstein MD - 06/24/2024 9:23 AM EDT High fiber foods: -Crunchy Vegetables -Pears -Prunes/ Prune juice -Apple sauce Fiber Supplements: -Metamucil powder or capsules -Citrucel - clear powder documented in this encounter Progress Notes * Sandra Goldstein MD - 06/24/2024 9:29 AM EDT Images from the original note were not included. Subjective Tarun Garcia is a 83 year old male that presents for Follow Up History of Present Illness The patient, diagnosed with prostate cancer, reports no new symptoms related to the condition. He has not yet undergone any treatment for the cancer, but has been monitoring his PSA levels, which recently dropped from 21 to 2.4, possibly due to a daily pill prescribed by his doctor. Despite the drop in PSA levels, the patient's doctor has recommended considering radiation treatment due to the aggressive nature of the cancer, which remains localized in the prostate. The patient has undergone a PET scan confirming that the cancer has not metastasized. The patient reports intermittent urinary issues, including a weaker stream and a delay in starting urination, which he attributes to the prostate putting pressure on the urethra. He spends about fiveto ten minutes ensuring his bladder is empty. The patient also reports a history of bowel obstruction, which resulted in eight days of vomiting and not eating, followed by a six-day hospital stay. Since then, the patient's bowel habits have beenimproving, although he is not yet back to normal. He reports loose stools and daily bowel movements, without the use of a bowel regimen. The patient has been experiencing swelling in his legs, particularly the left leg. He has been managing this with compression socks, but did not wear them on the day of the consultation. He has recently started taking Ensure once a day, but reports only eating one meal a day. The patient also reports issues with his feet, including an ulcer on the left foot and a feeling ofhaving a "club foot" when walking on the right foot. He has been receiving physical therapy to helpwith his walking. The patient has been unable to cut his toenails due to pain. He previously saw a welfare case worker, but the office has since closed. The patient's energy levels have been low, and he reports feeling like he "got old" six months ago.He now uses a walker for longer distances. He has been taking cholesterol medication and reports that his blood pressure has been running low for the past couple of months. Objective Vitals: 06/24/24 0851 Temp: 36 C (96.8 F) Pulse: 80 Resp: 16 BP: 108/64 BMI: 28.74 Physical Exam CHEST: Lungs clear to auscultation. CARDIOVASCULAR: Presence of a heart murmur, rhythm regular. ABDOMEN: Bowel sounds normal. EXTREMITIES: Bilateral lower extremity edema, more pronounced in the left leg than the right, graded as 1 to 2+. I have reviewed the following results: Results LABS PSA: 2.4 GFR: 40s A1c: 5.5 RADIOLOGY PET scan: Localized to prostate PATHOLOGY Biopsy: High-grade prostate cancer Assessment and Plan Assessment & Plan Prostate Cancer Aggressive but localized to the prostate. No current symptoms related to the cancer. PSA levels have decreased significantly with Bicalutamide. Radiation therapy consultation completed. -Continue Bicalutamide as prescribed. -Consider radiation therapy as discussed with oncologist. Urinary Symptoms Intermittent urinary stream, likely due to prostate pressure on the urethra. No hematuria or difficulty emptying bladder. -Monitor symptoms. Lower Extremity Edema Bilateral, more pronounced in the left leg. Likely multifactorial, including low protein intake. -Increase protein intake with two cans of Ensure daily. Foot Ulcer Present on left foot, below the pinky toe. Right foot discomfort described as feeling like a "club foot." -Schedule appointment with podiatry. Hyperlipidemia On cholesterol medication, concerns about cholesterol levels. -Continue cholesterol medication as prescribed. -Check cholesterol levels in six months. Diabetes A1c at 5.5, managed with diet and exercise. -Continue current management. -Check A1c in six months. General Health Maintenance -Ensure adequate fiber intake, consider Metamucil or Citrucel. -Follow-up appointment in 3-4 months. Type 2 diabetes mellitus with hemoglobin A1c goal of less than 8.0% (HCC) (Primary) Acquired hypothyroidism Chronic systolic congestive heart failure (HCC) HTN, goal below 150/90 Paroxysmal atrial fibrillation (HCC) Dyslipidemia, goal LDL below 70 Wrap-Up Time: I spent a total of 40-54 minutes (exact time 45 mins) on the date of service in preparation, delivery, and documentation of the care provided to Earl Garcia excluding any time spent in the performance of separately billed services. Text in this note was generated using an [employer] documentation service. I discussed the use of a device to record and summarize our discussion today. All persons present during the encounter consented to its use. documented in this encounter Plan of Treatment Upcoming Encounters Date Type Department Care Team (Late st Contact Info) Description 07/03/2024 4:00 PM EST Home Visit [facility] [address] [place] [address] Kelly Rosa, JULIA [address] [place] [address] 09/12/2024 10:30 AM EST Office Visit Cardiology [address] [place] [address] Luiz Pina PA-C [address] [place] [address] 10/16/2024 9:00 AM EST Office Visit Family Medicine [address] [place] [address] Sandra Goldstein MD [address] [place] [address] [place] [address] 10/24/2024 10:30 AM EST Nurse Only Ancillary Loretta Curiel[address] [place] [address] Juliann, Nurse [address] [place] [address] 11/07/2024 9:15 AM EDT Office Visit Urology, [facility] [address] [place] [address] Regan Alejandro MD [address] [place] [address] Scheduled Orders Name Type Priority Associated Diagnoses Orde r Schedule COMPREHENSIVE METABOLIC PANEL Lab Routine Dyslipidemia, goal LDL below 70 Expected: 12/22/2024 (Approximate), Expires: 06/24/2025 HEMOGLOBIN A1C Lab Routine Type 2 diabetes mellitus with hemoglobin A1c goal of less than 8.0% (HCC) Expected: 12/22/2024 (Approximate), Expires: 06/24/2025 LIPID PANEL WITH DIRECT LDL IF TG IS HIGH Lab Routine Dyslipidemia, goal LDL below 70 Expected: 12/22/2024, Expires: 06/24/2025 PHOSPHORUS Lab Routine Type 2 diabetes mellitus with hemoglobin A1c goal of less than 8.0% (HCC) Chronic systolic congestive heart failure (HCC) Expected: 12/22/2024 (Approximate), Expires: 06/24/2025 Scheduled Referrals Name Type Priority Associated Diagnoses Orde r Schedule PODIATRY REFERRAL OP Referral Within 10 days (routine) Type 2 diabetes mellitus with hemoglobin A1c goal of less than 8.0% (HCC) Diabetic ulcer of left midfoot associated with type 2 diabetes mellitus, limited to breakdown of skin (HCC) Ordered: 06/24/2024 Health Maintenance Due Date Last Done Comments Diabetic Foot Exam 04/21/2024 04/21/2023, 1 , 05/28/2020, Additional history exists COVID-19 Vaccine ( season) 2024 10/01/2022, 06/17/2021, 11/14/2020, Additional history exists CKD PHOS USE SMARTSET 32091 05/29/20240 02/2023, 10/01/2022, 12/04/2020, Additional history exists [...] Additional history exists CKD HGB USE SMARTSET 63692 05/24/202505/24, 05/24/2024, 05/10/2024, Additional history exists DTap/Tdap [...] this encounter Medical Devices Implanted Type Area Manufacturing Support Engineer Device Identifier Shelf Expiration Date Model / Serial / Lot Sut Steel 6 M654g - [id number] Implanted:Qty: 4 on 10/21/2015 by Riki Chan MD [place] [facility] [place]: Chest JNJ : [employer] 07/22/2020 M654G / / [id number] Marker Coronary Am-Sd - [id number] Implanted:Qty: 1 on 10/21/2015 by Riki Chan MD [place] [facility] [place]/A: Chest [employer] 08/22/2018 AM-SD / / [id number] Marker Coronary Am-Sd - [id number] Implanted:Qty: 1 on 10/21/2015 by Riki Chan MD [place] [facility] [place] Chest [employer] 06/22/2018 AM-SD / / [id number] documented as of this encounter Visit Diagnoses Diagnosis Type 2 diabetes mellitus with hemoglobin A1c goal of less than 8.0% (HCC)- Primary Prostate cancer (HCC) Malignant neoplasm of prostate Acquired hypothyroidism Unspecified hypothyroidism Chronic systolic congestive heart failure (HCC) Chronic systolic heart failure HTN, goal below 150/90 Paroxysmal atrial fibrillation (HCC) Atrial fibrillation Dyslipidemia, goal LDL below 70 Other and unspecified hyperlipidemia Diabetic ulcer of left midfoot associated with type 2 diabetes mellitus, limited to breakdown of skin (HCC) documented in this encounter Advance Directives [...] and were consensually agreed upon. Care Teams Apprentice Lineman Third Step Relationship Specialty Start Date End Date Sandra Goldstein MD [address] [place] [address] [place] [address] PCP - General Family Medicine 02/22/19 documented as of this encounter
--- OUTSIDE RECORDS SUMMARY | 2024-09-04 23:19 | External Medical Summary | Summary of Care ---
Author Name Unknown Organization [facility] Address [address] [place] [address] Phone [phone] Care Team Providers Care Towel Inspector Name Role Phone Sandra Goldstein MD Primary Care Prov ider Reason for Visit * Reason Onset Date Comments Appointment 06/05/2024 Encounter Details Date Type Department Care Team (Late st Contact Info) Description 06/05/2024 Telephone [facility] [place] [address] [place], [place] [id number] Duane Gale OSA [address] [place] [address] Appointment Allergies Active Allergy Reactions Criticality Noted Date Comments Lisinopril Cough Low 12/21/2012 documented as of this encounter (statuses as of 06/05/2024) Medications Medication Sig Dispensed Refills Start Date [...] Oral Capsule Take by mouth daily. Active [place] 3 1000 MG Oral Capsule Take by mouth daily. 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 Appt scheduled 06/05 and pt agreeable. documented in this encounter Plan of Treatment Upcoming Encounters Date Type Department Care Team (Late st Contact Info) Description 06/05/2024 2:30 PM EDT Home Visit [facility] [address] [place] [address] Beronica Zhang, [facility] Open Hearth Furnace Operator Helper [address] [facility] [place] [address] 06/15/2024 5:30 PM EDT Home Visit [facility] at [place], [address] [place] [address] Kelly Rosa RN [address] [place] [address] 06/19/2024 12:45 PM EDT Imaging Radiology [address] [place] [address] 06/19/2024 4:00 PM EDT Office Visit Urology, [facility] [address] [place] [address] Regan Alejandro MD [address] [place] [address] 06/24/2024 9:00 AM EDT Office Visit Family Practice [facility] [address] [facility] [place] [address] Sandra Goldstein MD [address] [place] [address] [place] [address] 09/12/2024 10:30 AM EST Office Visit Cardiology [address] [place] [address] Luiz Pina PA-C [address] [place] [address] 10/24/2024 10:30 AM EST Nurse Only Ancillary [address] [place] [address] [place], Nurse [facility] [address] [place] [address] [place] [address] Health Maintenance Due Date Last Done Comments Diabetic Foot Exam 04/21/2024 04/21/2023, 1 , 05/28/2020, Additional history exists COVID-19 Vaccine ( season) 2024 10/01/2022, 06/17/2021, 11/14/2020, Additional history exists CKD PHOS USE SMARTSET 42634 05/29/20240 02/2023, 10/01/2022, 12/04/2020, Additional history exists [...] Additional history exists CKD HGB USE SMARTSET 44626 05/24/202505/24, 05/24/2024, 05/10/2024, Additional history exists DTap/Tdap [...] this encounter Medical Devices Implanted Type Area Scaffold Builder Device Identifier Shelf Expiration Date Model / Serial / Lot Sut Steel 6 M654g - [id number] Implanted:Qty: 4 on 10/21/2015 by Riki Chan MD [place] [facility] [place] Chest JNJ : [employer] 07/22/2020 M654G / / [id number] Marker Coronary Amgm-Sd - [id number] Implanted:Qty: 1 on 10/21/2015 by Riki Chan MD [place] [facility] [place]A: Chest [employer] 08/22/2018 AMGM-SD / / [id number] Marker Coronary Amgm-Sd - [id number] Implanted:Qty: 1 on 10/21/2015 by Riki Chan MD [place] [facility] [place] Chest [employer] 06/22/2018 AMGM-SD / / [id number] documented as of this encounter Advance Directives [...] and were consensually agreed upon. Care Teams Towel Inspector Relationship Specialty Start Date End Date Sandra Goldstein MD [address] [place] [address] [place] [address] PCP - General Family Medicine 02/22/19 documented as of this encounter
--- OUTSIDE RECORDS SUMMARY | 2024-09-04 23:19 | External Medical Summary | Summary of Care ---
Author Name Unknown Organization [facility] Address [address] [facility] [address] Phone [phone] Care Team Providers Care Cnc Lathe Machinist Name Role Phone Sandra Goldstein MD Primary Care Prov ider Encounter Details Date Type Department Care Team (Late st Contact Info) Description 06/02/2024 Orders Only Family Medicine [address] [phone] Sandra Goldstein MD [address] [place] [address] Allergies Active Allergy Reactions Criticality Noted Date [...] Oral Capsule Take by mouth daily. Active [place] 3 1000 MG Oral Capsule Take by mouth daily. 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 [...] mRNA, LNP-s, No Pre serve, 2-Dose Series ([employer]) 06/17/2021,11/14/2020,10/24/2020 Covid-19, Mrna, Lnp-s, Pf, B ivalent, [...] 10:45 AM EDT Scheduled Telephone [facility] [address] [place] [address] Coordinator, [facility] [address] [place] [address] 06/15/2024 5:30 PM EDT [facility] Visit [facility] [address] [place] [address] Kelly Rosa RN [address] [place] [address] 06/19/2024 4:00 PM EDT Office Visit Urology, [facility] [address] [place] [address] Regan Alejandro MD [address] [place] [address] 06/24/2024 9:00 AM EDT Office Visit Family Practice [facility] [address] [place] [address] Sandra Goldstein MD [address] [place] [address] [place] [address] 09/12/2024 10:30 AM EST Office Visit Cardiology [address] [place] [address] Luiz Pina PARaheemC [address] [place] [address] 10/24/2024 10:30 AM EST Nurse Only Ancillary [address] [place] [address] [place], Nurse Annual Wellness [address] [place] [address] [place] [address] Health Maintenance Due Date Last Done Comments Diabetic Foot Exam 04/21/2024 04/21/2023, 1 , 05/28/2020, Additional history exists COVID-19 Vaccine ( season) 2024 10/01/2022, 06/17/2021, 11/14/2020, Additional history exists CKD PHOS USE SMARTSET 19889 05/29/202402/2023, 10/01/2022, 12/04/2020, Additional history exists HbA1c [...] Additional history exists CKD HGB USE SMARTSET 54214 05/24/202505/24, 05/24/2024, 05/10/2024, Additional history exists DTap/Tdap [...] this encounter Medical Devices Implanted Type Area Business Support Specialist Device Identifier Shelf Expiration Date Model / Serial / Lot Sut Steel 6 M654g - [id number] Implanted:Qty: 4 on 10/21/2015 [place] [facility] [place] Chest JNJ : [employer] 07/22/2020 M654G / / [id number] Marker Coronary Amgm-Sd - [id number] Implanted:Qty: 1 on 10/21/2015 [place] R[place] Chan [place] [facility] [place]: Chest [employer] 08/22/2018 AMGM-SD / / [id number] Marker Coronary Amgm-Sd - [id number] Implanted:Qty: 1 on 10/21/2015 [place] Riki Chan [place] [facility] [place] [employer] 06/22/2018 AMGM-SD / / [id number] documented as of this encounter Procedures Procedure Name Priority Date/Time Associated Diagnosis Comments COLONOSCOPY, OUTSIDE PROCEDURE Routine 05/31/2024 documented in this encounter Results * COLONOSCOPY, OUTSIDE PROCEDURE (05/31/2024) 05/31/2024 Sandra Jenkins MD GASTRO LOW ER OUTSIDE LAB (SEE SCANNED REPORT) documented in this encounter Advance Directives * [...] and were consensually agreed upon. Care Teams Cnc Lathe Machinist Relationship Specialty Start Date End Date Sandra Goldstein MD [address] [place] [address] [place] [address] PCP - General Family Medicine 02/22/19 documented as of this encounter
--- OUTSIDE RECORDS SUMMARY | 2024-09-04 23:19 | External Medical Summary | Summary of Care ---
Author Name Unknown Organization [facility] Address [address] [facility] [address] Phone [phone] Care Team Providers Care Government Minister Name Role Phone Sandra Goldstein MD Primary Care Prov ider Encounter Details Date Type Department Care Team (Late st Contact Info) Description 06/06/2024 Population Health External Data Unspecified Department Allergies Active Allergy Reactions Criticality Noted Date Comments Lisinopril Cough Low 12/21/2012 documented as of this encounter (statuses as of 06/08/2024) Medications Medication Sig Dispensed Refills Start Date [...] Oral Capsule Take by mouth daily. Active [place] 3 1000 MG Oral Capsule Take by mouth daily. Active Levothyroxine Sodium 112 MCG Oral Tablet (Levoxyl)Indications :Hypothyroidism due to acquired atrophy of thyroid Take 1 Tablet by mouth daily first thing in the morning at least 30 min prior to breakfast or other meds 90 Tablet 3 04/11/2024 Active Nystatin 037207 UNIT/GM External CreamIndications:Can didal diaper dermatitis Apply [...] daily until gone 6 Tablet 05/24/2024 Active Additional Information Patient not taking.Reported on 06/05/2024 Hospital, Clinic, or Other Facility Administered Medication Ordered Dose Route Frequency Start Date End Date Status Nystatin (Nystop) powderIndications:Tinea cruris TOP BID (.AM/PM) 06/10/2021 Active documented as of this encounter (statuses as of 06/08/2024) Active Problems Problem Noted Date Diagnosed Date [...] as of this encounter (statuses as of 06/08/2024) Resolved Problems Problem Noted Date Diagnosed Date [...] CHF 05/26/2019 05/22/2022 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 Never true 06/05/20 24 Within the past 12 months, t he food you bought just didn't last and you didn't have money to get more. Never true 06/05/2024 Childcare Answer Date Recorded Do you feel overwhelmed with taking care of a child, family member or friend? No 06/05/2024 Does your family need help f inding childcare? (Household - for ages 0-17 years) Not on file 06/05/2024 Clothing Answer Date Recorded Have you been unable to get clothing when it was really needed? No 06/05/2024 Is your family able to get c lothes or diapers when needed? (Household - for ages 0-17 years) Not on file 06/05/2024 Personal Safety Answer Date Recorded Do you feel unsafe or have concerns for your saf ety? No 06/05/2024 Do you have concerns for you r family's safety? (Household - for ages 0-17 years) Not on file 06/05/2024 Utilities Answer Date Recorded Do you have trouble paying y our heating, water, or electric bill? No 06/05/2024 Is your family able to pay t he heat, water, or electric bill? (Household - for ages 0-17 years) Not on file 06/05/2024 Does your family have access to good internet? (Household - for ages 0-17 years) Not on file 06/05/2024 Employment Status Answer Date Recorded Are you unemployed or without regular income? No 06/05/2024 Does the household have a re gular source of income? (Household - for ages 0-17 years) Not on file 06/05/2024 Social Connections Answer Date Recorded How often do you feel lonely or isolated from those around you? Sometimes 06/05/2024 Financial Resource Strain Answer Date R ecorded Do you have any trouble payi ng for your medications, or do you think you might in the future? No 06/05/2024 Does your family have troubl e paying for medicine? (Household - for ages 0-17 years) Not on file 06/05/2024 Transportation Needs Answer Date Record ed READ ONLY Do you have troubl e getting a ride to medical visits or work? Never True 06/05/2024 Does your family have a hard time getting a ride to doctors visits? (Household - for ages 0-17 years) Not on file 06/05/2024 Has lack of transportation k ept you from medical appointments, meetings, work, or from getting things needed for daily living? Check all that apply. No 06/05/2024 Do you (or your family) have trouble finding or paying for a ride (transportation)? (Household - for ages 0-17 years) Not on file 06/05/2024 Housing Stability Answer Date Recorded Do you currently live in a s helter or have no steady place to sleep at night? No 06/05/2024 READ ONLY Do you think you a re at risk of becoming homeless? No 06/05/2024 Does your family worry about paying for your home or becoming homeless? (Household - for ages 0-17 years) Not on file 1 Are you homeless or worried that you might be in the future? No 06/05/2024 Are you (or your family) rosa eless or worried that you might be in the future? (Household - for ages 0-17 years) Not on file Food Insecurity Answer Date Recorded Do you need food for this week? No 06/05/2024 Are you able to get enough f ood for your family? (Household - for ages 0-17 years) Not on file 06/05/2024 Does your family need food t his week? (Household - for ages 0-17 years) Not on file 06/05/2024 Do you always have enough fo od for your family? (Household - for ages 0-17 years) Not on file 06/05/2024 Sex and Gender Information Value Date Recorded [...] Description 06/15/2024 5:30 PM EDT Home Visit angie at [facility] [address] [address] Kelly Rosa RN [address] [address] 06/19/2024 12:45 PM EDT Imaging Radiology [facility] [address] [address] 06/21/2024 8:15 AM EDT Office Visit Urology, [facility] [address] [address] Regan Alejandro MD [address] [place] [address] 06/24/2024 9:00 AM EDT Office Visit Family Practice [facility] [address] [address] Sandra Goldstein MD [address] [place] [address] [place] [address] 09/12/2024 10:30 AM EST Office Visit Cardiology [address] [place] [address] Luiz Pina PARaheemC [address] [place] [address] 10/24/2024 10:30 AM EST Nurse Only Ancillary [place] [address] [place] [address] [place], Nurse [address] [place] [address] Health Maintenance Due Date Last Done Comments Diabetic Foot Exam 04/21/2024 04/21/2023, 1 , 05/28/2020, Additional history exists COVID-19 Vaccine (2023- season) 2024 10/01/2022, 06/17/2021, 11/14/2020, Additional history exists CKD PHOS USE SMARTSET 73834 05/29/202402/2023, 10/01/2022, 12/04/2020, Additional history exists HbA1c [...] Additional history exists CKD HGB USE SMARTSET 57812 05/24/202505/24, 05/24/2024, 05/10/2024, Additional history exists DTap/Tdap Vaccines (3 - Td or Tdap) 03/27/2033 03/27/2023, 03/08/2013 Pneumococcal Vaccine: 65+ Years Completed 08/13/2015, 07/07/2012 Zoster Vaccines Completed 12/02/2021, 12/09/2020, 06/06/2020, Additional history exists Influenza Vaccine (FLU [...] this encounter Medical Devices Implanted Type Area Real Estate Administrator Device Identifier Shelf Expiration Date Model / Serial / Lot Sut Steel 6 M654g - [id number] Implanted:Qty: 4 on 10/21/2015 [place] [facility] [place] Chest JNJ : [employer] 07/22/2020 M654G / / [id number] Marker Coronary Amgm-Sd - [id number] Implanted:Qty: 1 on 10/21/2015 by R[place] Chan [place] [facility] [place]: Chest [employer] 08/22/2018 AMGM-SD / / [id number] Marker Coronary Amgm-Sd - [id number] Implanted:Qty: 1 on 10/21/2015 by Riki Chan MD [place] [facility] [place] Chest [employer] 06/22/2018 AMGM-SD / / [id number] documented as of this encounter Advance Directives [...] and were consensually agreed upon. Care Teams Government Minister Relationship Specialty Start Date End Date Sandra Goldstein MD [address] [place] [address] [place] [address] PCP - General Family Medicine 02/22/19 documented as of this encounter
--- OUTSIDE RECORDS SUMMARY | 2024-09-04 23:19 | External Medical Summary | Summary of Care ---
Author Name Unknown Organization [facility] Address [address] [place] [address] Phone [phone] Care Team Providers Care Auto Dealer Name Role Phone Sandra Goldstein MD Primary Care Prov ider Encounter Details Date Type Department Care Team (Late st Contact Info) Description 06/05/2024 2:30 PM EDT Home Visit Care Coordination [facility] Integration [address], [place] [phone] Beronica Zhang [facility] Winder [address], [place] [phone] Allergies Active Allergy Reactions Criticality Noted Date Comments Lisinopril Cough Low 12/21/2012 documented as of this encounter (statuses as of 06/06/2024) Medications Medication Sig Dispensed Refills Start Date [...] Oral Capsule Take by mouth daily. Active [place] 3 1000 MG Oral Capsule Take by mouth daily. Active Levothyroxine Sodium 112 MCG Oral Tablet (Levoxyl)Indications :Hypothyroidism due to acquired atrophy of thyroid Take 1 Tablet by mouth daily first thing in the morning at least 30 min prior to breakfast or other meds 90 Tablet 3 04/11/2024 Active Nystatin 206932 UNIT/GM External CreamIndications:Can didal diaper dermatitis Apply [...] Additional Information Patient not taking.Reported on 06/05/2024 Cephalexin 500 MG Oral CapsuleIndications:C ellulitis of right lower extremity,Open wound of right lower leg, initial encounter Take 1 Capsule by mouth in the morning and 1 Capsule at noon and 1 Capsule before bedtime. Do all this for 10 days. 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 Pt not taking the [...] Kelly, would be coming to see him . CHW instructed pt to reach out to the CM before that if he needs anything. documented in this encounter Plan of Treatment Upcoming Encounters Date Type Department Care Team (Late st Contact Info) Description 06/15/2024 5:30 PM EDT Home Visit [facility] [address] [address] Kelly Rosa, JULIA [address] [place] [address] 06/19/2024 12:45 PM EDT Imaging Radiology [address] [address] 06/21/2024 8:15 AM EDT Office Visit Urology, [facility] [address] [place] [address] Regan Alejandro MD [address] [place] [address] 06/24/2024 9:00 AM EDT Office Visit Family Practice [facility] [address] [place] [address] Sandra Goldstein MD [address] [place] [address] [place] [address] 09/12/2024 10:30 AM EST Office Visit Cardiology [address] [place] [address] Luiz Pina PA-C [address] [place] [address] 10/24/2024 10:30 AM EST Nurse Only Ancillary [address] [place] [address] [facility] [address] [place] [address] Health Maintenance Due Date Last Done Comments Diabetic Foot Exam 04/21/2024 04/21/2023, 1 , 05/28/2020, Additional history exists COVID-19 Vaccine ( season) 2024 10/01/2022, 06/17/2021, 11/14/2020, Additional history exists CKD PHOS USE SMARTSET 02273 05/29/202402/2023, 10/01/2022, 12/04/2020, Additional history exists HbA1c [...] Additional history exists CKD HGB USE SMARTSET 59913 05/24/202505/24, 05/24/2024, 05/10/2024, Additional history exists DTap/Tdap Vaccines (3 - Td or Tdap) 03/27/2033 03/27/2023, 03/08/2013 Pneumococcal Vaccine: 65+ Years Completed 08/13/2015, 07/07/2012 Zoster Vaccines Completed 12/02/2021, 12/0 09/2020, 06/06/2020, Additional history exists Influenza Vaccine [...] this encounter Medical Devices Implanted Type Area Material Requisitioner Device Identifier Shelf Expiration Date Model / Serial / Lot Sut Steel 6 M654g - [id number] Implanted:Qty: 4 on 10/21/2015 by Riki Chan MD [place] [facility] [place]A: Chest JNJ : [employer] 07/22/2020 M654G / / [id number] Marker Coronary Amgm-Sd - [id number] Implanted:Qty: 1 on 10/21/2015 by Riki Chan MD [place] [facility] [place] N/A: Chest [employer] 08/22/2018 AMGM-SD / / [id number] Marker Coronary Amgm-Sd - [id number] Implanted:Qty: 1 on 10/21/2015 by Riki Chan MD [place] [facility] [place] Chest [employer] 06/22/2018 AMGM-SD / / [id number] documented as of this encounter Advance Directives [...] and were consensually agreed upon. Care Teams Auto Dealer Relationship Specialty Start Date End Date Sandra Goldstein MD [address] [place] [address] [place] [phone] PCP - General Family Medicine 02/22/19 documented as of this encounter
--- OUTSIDE RECORDS SUMMARY | 2024-09-04 23:20 | External Medical Summary | Summary of Care ---
Author Name Unknown Organization [facility] Address [address] [facility] [place] [address] Phone [phone] Care Team Providers Care Process Control Board Operator Name Role Phone Sandra Goldstein MD Primary Care Prov ider Reason for Visit * Reason Onset Date Comments [facility]: Maintenance 05/31/2024 Encounter Details Date Type Department Care Team (Late st Contact Info) Description 05/31/2024 10:00 AM EDT Scheduled Telephone [facility], [facility] [address] [facility] [place] [address] Coordinator, [facility] [address] [place] [address] Allergies Active Allergy Reactions Criticality Noted Date Comments Lisinopril Cough Low 12/21/2012 documented as of this encounter (statuses as of 05/31/2024) Medications Medication Sig Dispensed Refills Start Date [...] Oral Capsule Take by mouth daily. Active [place] 3 1000 MG Oral Capsule Take by mouth daily. 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 Subprogram: No data was found Follow Up Call Type: Routine follow up call / Status Check Acute issue requiring follow-up call: Other: CELINA#3 follow up---SBO, aspiration pneumonia, rectal bleeding is to have colonoscopy outpt. new prostate cancer-PET ct scan 05/23/24-tx plan not in place at this time Objective: 05/26/2024 2:55 PM 05/24/2024 11:14 AM [...] New medication(s) added: Cephalexin ordered by PCP on 05/26 Subjective: Condition Status: LMOM requesting return call to [facility], 833# provided Current Concerns: CELINA#3 follow up---SBO, aspiration pneumonia, rectal bleeding is to have colonoscopy outpt. new prostate cancer-PET ct scan 05/23/24-tx plan not in place at this time Disposition: Follow up call scheduled for tomorrow with [facility] Government Clerk Future Visits Scheduled: Future Appointments-next 60 days Date/Time Provider Specialty Dept Phone 06/15/2024 5:30 PM Kelly Rosa, JULIA [facility] [phone] 06/19/2024 4:00 PM (Arrive by 3:45 PM) Regan Alejandro MD Urology [phone] 06/24/2024 9:00 AM (Arrive by 8:45 AM) Sandra Goldstein MD Family Medicine [phone] 09/12/2024 10:30 AM (Arrive by 10:15 AM) Luiz Pina PA-C Cardiology [phone] 10/24/2024 10:30 AM Nurse Juliann [facility] Ancillary [phone] Shelbie Silvestre RN documented in this encounter Plan of Treatment Upcoming Encounters Date Type Department Care Team (Late st Contact Info) Description 06/01/2024 11:30 AM EDT Scheduled Telephone [facility], [facility] [address] [address] Coordinator, [facility] [address] [address] 06/15/2024 5:30 PM EDT Home Visit [facility] [place], [facility] [address] [address] Kelly Rosa, RN [address] [place] [address] 06/19/2024 4:00 PM EDT Office Visit Urology, [facility] [address] [address] Regan Alejandro MD [address] [place] [address] 06/24/2024 9:00 AM EDT Office Visit Family Practice [facility] [address] [address] Sandra Goldstein MD [address] [place] [address] [place] [address] 09/12/2024 10:30 AM EST Office Visit Cardiology [address] [place] [address] Luiz Pina PARaheemC [address] [address] 10/24/2024 10:30 AM EST Nurse Only Ancillary [address] [place] [address] [place], Nurse Annual [address] [place] [address] Health Maintenance Due Date Last Done Comments Diabetic Foot Exam 04/21/2024 04/21/2023, 1 , 05/28/2020, Additional history exists COVID-19 Vaccine ( season) 2024 10/01/2022, 06/17/2021, 11/14/2020, Additional history exists CKD PHOS USE SMARTSET 26522 05/29/2024 10/0 02/2023, 10/01/2022, 12/04/2020, Additional history [...] Additional history exists CKD HGB USE SMARTSET 55939 05/24/202505/24, 05/24/2024, 05/10/2024, Additional history exists DTap/Tdap [...] this encounter Medical Devices Implanted Type Area Investigative Shopper Device Identifier Shelf Expiration Date Model / Serial / Lot Jenelle Srinivasan 6 M654g - [id number] Implanted:Qty: 4 on 10/21/2015 by Riki Chan [place] [facility] [place] Chest JNJ : [employer] 07/22/2020 M654G / / [id number] Marker Coronary Amgm-Sd - [id number] Implanted:Qty: 1 on 10/21/2015 by Riki Chan [place] [facility] [place]: Chest [employer] 08/22/2018 AMGM-SD / / [id number] Marker Coronary Amgm-Sd - [id number] Implanted:Qty: 1 on 10/21/2015 by Riki Chan MD [place] [facility] [place] Chest [employer] 06/22/2018 AMGM-SD / / [id number] documented as of this encounter Advance Directives [...] and were consensually agreed upon. Care Teams Process Control Board Operator Relationship Specialty Start Date End Date Sandra Goldstein MD [address] [place] [address] [place] [address] PCP - General Family Medicine 02/22/19 documented as of this encounter
--- OUTSIDE RECORDS SUMMARY | 2024-09-04 23:20 | External Medical Summary | Summary of Care ---
Author Name Unknown Organization [facility] Address [address] [facility] [place] [address] Phone [phone] Care Team Providers Care Contract Negotiator Name Role Phone Sandra Goldstein MD Primary Care Prov ider Reason for Visit * Reason Onset Date Comments [facility]: Maintenance 06/01/2024 Encounter Details Date Type Department Care Team (Late st Contact Info) Description 06/01/2024 11:30 AM EDT Scheduled Telephone [facility], [facility] [address] [place] [id number] Coordinator, [facility] [address] [place] [address] Allergies Active Allergy Reactions Criticality Noted Date Comments Lisinopril Cough Low 12/21/2012 documented as of this encounter (statuses as of 06/01/2024) Medications Medication Sig Dispensed Refills Start Date [...] Oral Capsule Take by mouth daily. Active [place] 3 1000 MG Oral Capsule Take by mouth daily. 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 Subprogram: No data was found Follow Up Call Type: Routine follow up call / Status Check Acute issue requiring follow-up call: Other: f/u- CELINA#3 follow up---SBO, aspiration pneumonia, rectal bleeding [...] ordered by PCP 05/26 Subjective: Condition Status: [facility] Current Concerns: [facility] 05/13-05/18/24 SBO due to incarcerated umbilical hernia Aspiration pneumonia Surgical consult--reduced hernia, recommended NGT management of SBO, no surgical intervention required this admission GI consulted due to rectal bleeding-Hgb dropped from 12.5 to 9.3, improved back to 10.4--recommended outpatient colonoscopy Phone call to patient, no answer. LMOM to return call. [facility] phone number provided, opt 1. Disposition: Follow up call scheduled for tomorrow with [facility] Psychiatrist Future Visits Scheduled: Future Appointments-next 60 days Date/Time Provider Specialty Dept Phone 06/15/2024 5:30 PM Kelly Rosa RN [facility] [phone] 06/19/2024 4:00 PM (Arrive by 3:45 PM) Regan Alejandro MD Urology [phone] 06/24/2024 9:00 AM (Arrive by 8:45 AM) Sandra Goldstein MD Family Medicine [phone] 09/12/2024 10:30 AM (Arrive by 10:15 AM) Luiz Pina PA-C Cardiology [phone] 10/24/2024 10:30 AM Nurse Juliann [facility] Ancillary [phone] Swati Hoskins RN documented in this encounter Plan of Treatment Upcoming Encounters Date Type Department Care Team (Late st Contact Info) Description 06/02/2024 10:45 AM EDT Scheduled Telephone [facility] [place], [address] [place] [address] Coordinator, [place] [address] [place] [address] 06/15/2024 5:30 PM EDT Home Visit [facility] [place], [place] [address] [address] [place] [address] Kelly Rosa RN [address] [place] [address] 06/19/2024 4:00 PM EDT Office Visit Urology, [facility] [address] [place] [address] Regan Alejandro MD [address] [place] [phone] 06/24/2024 9:00 AM EDT Office Visit Family Practice [facility] [address] [place] [address] Sandra Goldstein MD [address] [place] [address] [place] [address] 09/12/2024 10:30 AM EST Office Visit Cardiology [address] [place] [address] Luiz Pina PARaheemC [address] [place] [address] 10/24/2024 10:30 AM EST Nurse Only Ancillary [address] [place] [address] Juliann, Nurse [facility] [address] [place] [address] [place] [address] Health Maintenance Due Date Last Done Comments Diabetic Foot Exam 04/21/2024 04/21/2023, 1 , 05/28/2020, Additional history exists COVID-19 Vaccine ( season) 2024 10/01/2022, 06/17/2021, 11/14/2020, Additional history exists CKD PHOS USE SMARTSET 94474 05/29/2024 02/2023, 10/01/2022, 12/04/2020, Additional history exists HbA1c [...] Additional history exists CKD HGB USE SMARTSET 46996 05/24/202505/24, 05/24/2024, 05/10/2024, Additional history exists DTap/Tdap [...] Medical Devices Implanted Type Area Director Of Cardiology Service Line Device Identifier Shelf Expiration Date Model / Serial / Lot Jenelle Srinivasan 6 M654g - [id number] Implanted:Qty: 4 on 10/21/2015 by Riki Chan MD at OR [facility] N/A: Chest JNJ : [employer] 07/22/2020 [id number] / / [id number] Marker Coronary Amgm-Sd - [id number] Implanted:Qty: 1 on 10/21/2015 by Riki Chan MD at OR [facility] N/A: Chest [employer] 08/22/2018 AMGM-SD / / [id number] Marker Coronary Amgm-Sd - [id number] Implanted:Qty: 1 on 10/21/2015 by Riki Chan MD at OR [facility] Chest [employer] 06/22/2018 AMGM-SD / / [id number] documented as of this encounter Advance Directives [...] and were consensually agreed upon. Care Teams Contract Negotiator Relationship Specialty Start Date End Date Sandra Goldstein MD [address] [place] [address] [place] [id number] PCP - General Family Medicine 02/22/19 documented as of this encounter
[2024-09-05 00:31] LABS: A calco-baum cmplx NotReported Not Detected (NotDetected); Bact fragilis Not Reported Not Detected (NotDetected); Blood Culture Id Panel See PCR Comment (NotDetected); C auris Not Reported Not Detected (NotDetected); Calbicans Not Reported Not Detected (NotDetected); Candida glabrata Not Reported Not Detected (NotDetected); Candida krusei Not Reported Not Detected (NotDetected); Cneoformans/gatti Not Reported Not Detected (NotDetected); Cparapsilosis Not Reported Not Detected (NotDetected); E cloacae compx Not Reported Not Detected (NotDetected); Efaecalis Not Reported Not Detected (NotDetected); Efaecium Not Reported Not Detected (NotDetected); Enterobacterales Not Reported Not Detected (NotDetected); Escherichia coli Not Reported Not Detected (NotDetected); H influenzae Not Reported Not Detected (NotDetected); K aerogenes Not Reported Not Detected (NotDetected); Koxytoca Not Reported Not Detected (NotDetected); Kpneumoniae grp Not Reported Not Detected (NotDetected); Lmonocyt Not Reported Not Detected (NotDetected); N meningitidis Not Reported Not Detected (NotDetected); P aeruginosa Not Reported Not Detected (NotDetected); Proteus spp Not Reported Not Detected (NotDetected); Salmonella spp Not Reported Not Detected (NotDetected); Staph lugdunensis Not Reported Not Detected (NotDetected); Staph spp. Not Reported Not Detected (NotDetected); Staphaureus Not Reported Not Detected (NotDetected); Staphepi Not Reported Not Detected (NotDetected); Stenmaltophilia Not Reported Not Detected (NotDetected); Strep agal(GrpB) Not Reported DETECTED (NotDetected); Strep pneum Not Reported Not Detected (NotDetected); Strep pyog (GrpA) Not Reported Not Detected (NotDetected); Strep spp Not Reported DETECTED (NotDetected)
[2024-09-05 00:36] LABS: Streptococcus agalactiae(GrpB) DETECTED (NotDetected); Streptococcus spp DETECTED (NotDetected)
--- NOTE | 2024-09-05 01:00 | Communication Note ---
Date of Service: September 05, 2024 Patient seen on arrival to ICU. AAOx3. Pleasant and conversant. No current complaints. Saturating > 95% on 4L NC. Hemodynamically stable and nontachycard ic, afebrile. Lactic acidosis has improved with IVF administration. POCUS shows LV is dilated with obvious WMA which are chronic in nature based on prior reports, RV not well visualized but does not appear dilated, no septal flattening. EF grossly 25-35% UA does not appear infected, +casts and protein, negative bacteria, nitrites, WBC. Has diabetic ulcer to L lateral foot which patient states "foot doctor took a scalpel to it recently". Pain has made it difficulty for him to ambulate. It appears unroofed, does have some surrounding fluctuance but unable to express due to patient's pain. The pain does extend superiorly to about the midfoot. There is not significant swelling of foot, erythematous tracking, or crepitus. Capillary refill < 3 seconds. BC have all returned with GPC in chains. Streptococcus and strep agalactiae PCR +. Source is likely soft tissue though there is possibly a developing infiltrate of LLL lung. Of note, full skin check was performed and he does not have any further wounds, including at sites of ongoing radiation therapy. He is appropriately covered with cefepime at this time. Continue Flagyl overnight, can likely D/C in AM as his exam is not consistent with peritonitis or biliary tract infection. Consider I/D consult as patient will require minimum 14 days IV ABX therapy. TTE is pending to evaluate for gross valvulopathy. Tricuspid valve not well visualized on POCUS. Pursue L foot XR now to rule out obvious OM. Further imaging may be required. CCM time 30 minutes including evaluation of patient, management of critical illness, and formulation of tailored treatment plan. Coding Level of Care Code 09391 CRITICAL CARE 1ST 30-74M Time Spent (min) 30
--- NOTE | 2024-09-05 02:40 | XRay Report ---
EXAM: XR foot LT 2V CLINICAL HISTORY: Concern for osteomyelitis vs deep tissue infection. TECHNIQUE: X-ray images of the left foot were obtained in anteroposterior (AP), lateral projections. COMPARISON: No prior studies are available for comparison. FINDINGS: Bone Structure: The bone structure is normal and aligned. No evidence of fracture or dislocation. No osseous lesions or abnormalities were identified. A Stieda process of talus bone. Moderate metatarsus varus noted. Joint Spaces: Mild osteoarthritic changes at multiple visualized joints of the ankle, Intratarsal, and interphalangeal joints. Soft Tissues: Soft tissues appear normal and unremarkable. No soft tissue swelling, calcifications, or foreign bodies noted. Additional Findings: Plantar calcaneal spur is seen. Vascular calcification is seen. IMPRESSION: 1. No obvious/definite features of osteomyelitis however MRI is suggested if clinical concerns persist. 2. Mild osteoarthritic changes at multiple visualized joints of the ankle, Intratarsal, and interphalangeal joints. Disclaimer: A subtle bone abnormality or fracture may not be readily apparent on X-rays, thus clinical correlation and further imaging including follow-up CT, MRI, or follow-up X-rays are advised as needed. Electronically signed by Elizabeth Whittaker 09-05-2024 02:40 AM
[2024-09-05] MEDS: CEFEPIME 1000MG 1,000 MG/10 ML SYR IV SCH (03:37)
[2024-09-05 04:49] LABS: Hematocrit (blood only) 21.7 % (42.0-52.0); Hemoglobin 7.4 g/dl (14.0-18.0); Mean Corpuscular Hemoglobin 26.7 pg (25.0-34.0); Mean Corpuscular Hgb Conc 34.1 g/dL (32.0-36.0); Mean Corpuscular Volume 78.3 fL (80.0-100.0); Mean Platelet Volume 10.4 fL (9.4-12.4); Platelet Count 62 K/uL (130-400); RDW Coefficient of Variation 21.9 % (11.5-14.5); RDW Standard Deviation 61.6 fL (36.4-46.3); Red Blood Count 2.77 M/uL (4.70-6.10)
[2024-09-05 05:22] LABS: Albumin Globulin Ratio 1.4 (0.9-2); Albumin Level 2.9 gm/dl (3.4-5.0); BUN Creatinine Ratio 17.2 (10-20); Bilirubin,Total 2.5 mg/dl (0.2-1.0); Calcium 8.3 mg/dl (8.6-10.3); Creatinine Clr Calc Pharmacy 20.8 ml/min; Globulin 2.1 gm/dl (2.5-4.0); Potassium 4.5 mmol/L (3.5-5.1); Troponin I High Sensitivity 42.5 pg/ml (0-20)
[2024-09-05] MEDS ORDERED: STAT IV Infusion **Titration per Protocol STA ×2 (06:52→19:04)
[2024-09-05] MEDS ORDERED: PLASMA-LYTE A 250 ML IV ONE (06:52)
[2024-09-05] MEDS ORDERED: SODIUM CHLORIDE 0.9% 1000ML IV SCH (07:15)
[2024-09-05] MEDS: SODIUM CHLORIDE 0.9% 250 ML IV SCH (07:37)
[2024-09-05] MEDS: LEVOTHYROXINE SODIUM 112 MCG TABLET PO SCH (07:40)
--- NOTE | 2024-09-05 07:48 | Nephrology Consultation ---
Date of Consultation September 05, 2024 Assessment & Plan (1) Acute kidney injury superimposed on stage 3b chronic kidney disease: slightly worse Stage 3 oliguric VENITA on CKD 3 (CKD 3 neither A nor B); while the UOP is picking up some, creatinine has worsened from 2.9 > 3.1 on admission, not unexpected in the setting of sepsis and HF. he had 25 mL UOP [id number]; then 50 mL next 2 hrs; then 250 mL [id number]. life threatening multiorgan failure on presentation w/ respiratory, cardiac, renal, liver failure >> primarily cardiorenal though in setting of heart failure. baseline creatinine about 1.6-1.7 w/ 143 mg/gm albuminuria. already had 1.25L fluid overnight > would not -would give neither fluid nor diuretics at this point but likely to need diuretics soon >> for now give more time for infection to stabilize -strict I/O -continue BP support to goal MAP 65 or better > agree w/ PRN pressors which hopefully will not be needed > repeat BMP 1600 ordered and reevaluate need for gentle diuresis at that time -daily BMP -no current indication for renal replacement therapy >would keep swenson one day more at least despite discomfort > ? urogel Care coordinated w/ Dr Pierson in person regarding renal failure etiology, fluids/ diuretics/ pressors and follow up labs; we are in agreement. (2) Acute exacerbation of CHF (congestive heart failure): combined and severe systolic/diastolic HF w/ EF 30-35% per OP cardiology notes fall 2023. f/u TTE today slightly worse than that baseline -monitor for opportunity to start gentle diuretics later today -f/u cardiology recs -accompained by congestive hepatopathy (3) Streptococcemia: 4/4 blood cultures on 09/05 w/ Strep agalactiae; on cefepime > narrow when feasible pending other infectious w/u possibly to ceftriaxone suspect soft tissue etiology; not urine History of Present Illness Reason for Consultation: VENITA on CKD3B Requesting Physician: Dr Couch Attending Physician: Mykel Couch MD History of Present Illness 84 y/o M whom I'm asked to see for VENITA on CKD 3 was admitted yesterday afternoon with sepsis and multiorgan dysfunction and found to have streptococcemia. [facility]/ [facility] responsiveness and cyanosis. 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 Also w/ L foot diabetic ulcer recently debrided. And outpatient sytolic BP have in May and June 2024 have been consistently 90s-100s on all 6 encounters, prior to this more 110-120s systolic. Endorsed 48 hrs of chills, dyspnea, poor po intake, and lower abdominal/back pain prior to admission; also w/ dysuria w/o hematuria or urgency/frequency. + constipation. As an OP takes K 10 mEq daily, 20 mg lasix, plavix, amiodarone. currently denies further chills/chest pain/palpitations; endorses mild dyspnea w/ exam maneuvers and swenson catheter discomfort; no n/v; no orthopnea; his appetite is returning somewhat today Presenting creatinine 2.9; up to 3.1 today; presenting K 5.4, down to 4.5 today. Lactate initially 8.1, down to 1.3 by this AM. Transaminases have more than doubled overnight to 300-500s; plts in 60s today and albumin high 2's. Blood cultures show Strep agalactiae on PCR; as above w/ other infectious w/u negative. UOP so far 0.08 ml/kg/hr. Pt had cefepime and 1L NS in ER; had IV insulin 10 units and amp of sodium bicarbonate. Currently getting 250 mL NS bolus and starting norepinephrine; remains on cefepime. Initial laboratory evaluation in the ED revealed lactic acidosis with a lactate level of 8.1, hyperkalemia, VENITA on CKD stage IIIb, elevated BNP and elevated troponin. Respiratory BioFire panel was negative. CXR showed . Patient received 1L NSS as well as IV cefepime in the ED. Subsequent repeat lactate improved to 6.3; EKG was concerning for possible ST elevations however ED provider contacted the on-call seconds grader, Dr. Laboy, who felt the EKG changes are chronic and not indica Allergies Allergy/AdvReac Type Severity Reaction Status Date / Time lisinopril AdvReac Mild COUGHING Verified 08/13/24 10:59 Home Medications Medication Instructions Recorded Confirmed Type amiodarone 200 mg tablet 200 mg PO QAM 03/11/23 09/04/24 History cholecalciferol (vitamin D3) 50 50 mcg PO DAILY 03/11/23 09/04/24 History mcg (2,000 unit) capsule (Vitamin D3) furosemide 20 mg tablet 40 mg PO DAILY 03/11/23 09/04/24 History potassium chloride 10 mEq 10 meq PO DAILY 03/11/23 09/04/24 History capsule,extended release tamsulosin 0.4 mg capsule 0.4 mg PO DAILY #90 caps 07/29/23 09/04/24 Rx apixaban 2.5 mg tablet 2.5 mg PO BID 05/13/24 09/04/24 History bicalutamide 50 mg tablet (Casodex) 50 mg PO DAILY 05/13/24 09/04/24 History levothyroxine 112 mcg tablet 112 mcg PO QAM 05/13/24 09/04/24 History metoprolol succinate 50 mg 50 mg PO BID 05/13/24 09/04/24 History tablet,extended release 24 hr clopidogrel 75 mg tablet (Plavix) 75 mg PO DAILY 07/06/24 09/04/24 History degarelix 120 mg subcutaneous 240 mg subcut ONCE #2 ea 07/07/24 09/04/24 Rx solution (Firmagon kit with diluent syringe) degarelix 80 mg subcutaneous 80 mg subcut Q28D #1 ea 07/19/24 09/04/24 Rx solution (Firmagon kit with diluent syringe) degarelix 80 mg subcutaneous 80 mg subcut Q28D #1 ea 08/18/24 09/04/24 Rx solution (Firmagon kit with diluent syringe) Patient History Medical History History of aspiration pneumonia admitted to [facility] 04/2024 Ischemic cardiomyopathy "prior EF 35-40% in August 2008; improved EF 50-54% on 11/24/16 echo" Paroxysmal atrial fibrillation hx--"postoperative" History of cardioembolic stroke ~2016, 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 Mitral regurgitation follows w/ Dr Hyde HTN (hypertension) Dyslipidemia Diabetes mellitus no meds currently BHUPINDER (obstructive sleep apnea) no device PFO (patent foramen ovale) Atrial septal defect Gout Diabetic neuropathy Chronic anticoagulation Hx of renal calculi Hx of ventricular tachycardia Transient vision disturbance of both eyes Peripheral artery disease Rectal bleeding Bowel obstruction (04/2024) recent admission to [facility] DJD of left shoulder Surgical History 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" History of total right knee replacement (2004) History of lithotripsy Hx of inguinal hernia repair (1954) Hx of colonoscopy History of right shoulder replacement (2009) History of left shoulder replacement AICD present, double chamber [employer], implanted 2018 Family History Brother V-tach required AICD Social History Smoking Status: Never smoker Second Hand Exposure: No; Do You Dip or Chew Tobacco: No; Hx Alcohol Use: No Hx Substance Use: No Preferred Language: Serbian Communication Ability: Effective Visual Impairment: No Limitations Hearing Ability: Normal Outdoor Education Teacher Required: No Beliefs That Will Affect Care: None marital status: Single Current Living Situation: Alone Current Living Situation Comment: home alone, daughter lives 12 miles away current occupational status: retired Feels Safe at Home: Yes Diet: regular during the past year weight has: decreased > 10 lbs Assistive Devices: Walker Review of Systems 2 Review of Systems: All systems reviewed & are unremarkable except as noted in HPI & below Physical Exam 2 Constitutional: well developed, well nourished, average body habitus and cooperative; no acute distress Eyes: EOM intact bilaterally ENMT: Mouth: + dry oral mucous membranes Respiratory: normal respiratory effort, able to speak in complete sentences and + paradoxical thoraco-abdominal movement; no respiratory distress, no cough, not tachypneic and expiratory phase not prolonged Auscultation: + diminished lung sounds and + crackles (very fine bibasilar) Cardiovascular: RRR, no murmur, no edema Gastrointestinal (Abdomen): Inspection/Auscultation: normal bowel sounds P ercussion/Palpation: abdomen soft, + ascites and + fluid wave; abdomen nontender Musculoskeletal: Extremities: strength 5/5 throughout Skin: no rashes, warm and dry (L foot not examined) Neurologic: childers, fluent speech, no tremor Results & Data Vital Signs (Past 12 Hours) Vital Signs Temp Pulse Pulse Resp BP BP Pulse Ox 09/05/24 01:00 37 C 96/60 L 09/05/24 01:00 96/60 L 09/05/24 01:00 70 9 L 97 09/05/24 00:45 95/58 L 09/05/24 00:45 95/58 L 09/05/24 00:45 95/58 L 09/05/24 00:30 102/64 09/05/24 00:30 64 15 97 09/05/24 00:15 70 16 98 09/05/24 00:15 101/64 09/05/24 00:15 101/64 09/05/24 00:03 61 15 98 09/05/24 00:00 97/63 L 09/05/24 00:00 97/63 L 09/04/24 23:45 95/62 L 09/04/24 23:30 100/61 09/04/24 23:30 100/61 09/04/24 23:21 57 L 13 99 09/04/24 23:15 59 L 13 97 09/04/24 23:15 94/61 L 09/04/24 23:15 94/61 L 09/04/24 23:15 94/61 L 09/04/24 23:12 70 5 L 98 09/04/24 22:48 70 18 99 09/04/24 22:45 96/62 L 09/04/24 22:45 96/62 L 09/04/24 22:39 70 29 H 98 09/04/24 22:36 70 23 97 09/04/24 22:15 70 24 97 09/04/24 22:15 91/64 L 09/04/24 22:15 91/64 L 09/04/24 22:15 91/64 L 09/04/24 22:06 70 24 99 09/04/24 22:00 94/61 L 09/04/24 22:00 94/61 L 09/04/24 22:00 94/61 L 09/04/24 21:57 70 16 98 09/04/24 21:45 95/62 L 09/04/24 21:36 70 19 98 09/04/24 21:15 93/63 L 09/04/24 21:15 93/63 L 09/04/24 21:15 93/63 L 09/04/24 21:15 70 24 99 09/04/24 21:00 100/63 09/04/24 21:00 100/63 09/04/24 21:00 100/63 09/04/24 20:54 66 28 H 99 09/04/24 20:48 73 21 99 09/04/24 20:45 99/68 L 09/04/24 20:45 99/68 L 09/04/24 20:42 37.0 C 71 22 100/63 99 09/04/24 20:09 09/04/24 20:08 36.6 C 63 18 100/63 99 O2 Del Method O2 Flow Rate 09/05/24 01:00 09/05/24 01:00 09/05/24 01:00 09/05/24 00:45 09/05/24 00:45 09/05/24 00:45 09/05/24 00:30 09/05/24 00:30 09/05/24 00:15 09/05/24 00:15 09/05/24 00:15 09/05/24 00:03 09/05/24 00:00 09/05/24 00:00 09/04/24 23:45 09/04/24 23:30 09/04/24 23:30 09/04/24 23:21 09/04/24 23:15 09/04/24 23:15 09/04/24 23:15 09/04/24 23:15 09/04/24 23:12 09/04/24 22:48 09/04/24 22:45 09/04/24 22:45 09/04/24 22:39 09/04/24 22:36 09/04/24 22:15 09/04/24 22:15 09/04/24 22:15 09/04/24 22:15 09/04/24 22:06 09/04/24 22:00 09/04/24 22:00 09/04/24 22:00 09/04/24 21:57 09/04/24 21:45 09/04/24 21:36 09/04/24 21:15 09/04/24 21:15 09/04/24 21:15 09/04/24 21:15 09/04/24 21:00 09/04/24 21:00 09/04/24 21:00 09/04/24 20:54 09/04/24 20:48 09/04/24 20:45 09/04/24 20:45 09/04/24 20:42 Nasal Cannula 4 09/04/24 20:09 Nasal Cannula 4 09/04/24 20:08 Nasal Cannula 1 Laboratory Results 09/05/24 04:32 09/05/24 04:32 UA3+ protein, 1+ bili; no bact; 1017; 5.5; cloudy dark yellow; al indices neg Diagnostic Findings CXR (images personally reviewed; agree w/ report) cardiomegaly with interstitial pulmonary edema, small bilateral pleural effusions, mild bibasilar atelectasis CT c non con (images personally reviewed; agree w/ report) 1. Mild heterogeneous opacification in the left lower lobe which could suggest pneumonia in the proper clinical setting. 2. Small bilateral pleural effusions and anasarca within the chest wall. 3. Ascites present at the edge of the [id number]. 4. Severe cardiomegaly CT a/p non con (images personally reviewed; agree w/ report) 1. Small bilateral pleural effusions, appearing in the interval. 2. Large volume of ascites and anasarca, appearing in the interval. 3. No dilated loops of bowel or bowel obstruction. 4. Cholelithiasis. 5. Swenson catheter balloon in the urinary bladder with under distended urinary bladder and possible circumferential wall thickening which could suggest cystitis given the stated clinical history. No emphysematous cystitis. L foot XR > unremarkable TTE grade 3 diastolic dysfunction; severe systolic dysfunction w/ EF 25-20% and diffuse WMA; moderate MR/TR (2) Acute exacerbation of CHF (congestive heart failure) Heart failure type: systolic Qualified Code(s): I50.23 - Acute on chronic systolic (congestive) heart failure
[2024-09-05] MEDS: TAMSULOSIN HCL 0.4 MG CAP PO SCH (08:51)
[2024-09-05] MEDS: CLOPIDOGREL BISULFATE 75 MG TAB PO SCH (08:51)
[2024-09-05] MEDS: BICALUTAMIDE 50 MG TAB PO SCH (08:51)
--- NOTE | 2024-09-05 09:06 | Cardiology Consultation ---
Date of Consultation September 05, 2024 Assessment & Plan (1) Sepsis: (2) VENITA (acute kidney injury): (3) Acute systolic heart failure: Plan 54-year-old male with acute on chronic heart failure with reduced ejection fraction due to ischemic cardiomyopathy. Complex cardiac history as outlined in the HPI. Patient with underlying immunocompromise state in the setting of prostate cancer. CT of the chest performed on admission revealed possible left lower lobe pneumonia as well as small bilateral pleural effusions and ascites. Lactic acidosis noted on presentation as well as thrombocytopenia and acute kidney injury. Mild troponin elevation, flat trend. Echocardiogram reveals severe left ventricular systolic function, slightly worse than his previous baseline but I think in part today study is just more informative as to the ultrasound images are of better technical quality. Patient is on clopidogrel and Eliquis due to his history of coronary disease and recurrent cardioembolic stroke. With findings of thrombocytopenia agree with holding Eliquis for now and continuing clopidogrel with caution. Patient has received a liter of fluid. He describes longstanding history of relative hypotension with systolic blood pressure typically in the 90s as an outpatient per his description. At present rather than administering additional IV fluids or diuretic therapy, recommend keeping intake and output even for now and proceeding with IV antibiotics as already ordered. Noted findings of of AST elevation to 520 units/L, ALT elevation to 322 units/L, and trending up compared to yesterday. Anticipate that the elevation in LFTs is related to sepsis and hypoperfusion. Hold amiodarone for now, but have a low threshold to resume it as soon as possible with patient having had past history of ventricular tachycardia leading to amiodarone therapy plus AICD placement and subsequent appropriate AICD discharge in the setting of recurrent VT. No ventricular arrhythmias observed on telemetry at present. I spent a total of 65 minutes on the date of service in preparation, delivery, and documentation of the care provided to this patient, excluding any time spent in the performance of separately billed services. Case discussed Dr Pierson of critical care medicine for the purpose of coordination of care. History of Present Illness Attending Physician: Malena Chung MD History of Present Illness Mr Garcia is an 84 year old male seen in cardiology consultation per the request of Macarena Downs PA-C for the evaluation of congestive heart failure. Patient describes a longstanding stable degree of exertional shortness of breath. He lives alone and independently in [place]. He walks within his home without assistance. He notes that if he goes to the grocery store he uses a cart for support but has been able to walk the length of the [place] within the recent months. He describes that his recent illness dates back to several days ago on Wednesday/09/01/2024 again developed profound subjective weakness. He notes his appetite has been poor for several days and that he has had limited bowel movements for 3 weeks. Yesterday when he attempted to keep his appointment for his radiation therapy related to his prostate cancer he had a very difficult time making into the cancer center despite using his walker and noted that he was profoundly fatigued, exhausted. Upon arrival for that appointment he was found to be cyanotic and there was concern of a low pulse oximetry reading. He was therefore transferred to the emergency department. Workup notable for lactic acidosis on presentation with subsequent improvement in acute kidney injury. Troponin mildly elevated in the range of 37-43 PG per mL, flat trend. EKG reveals chronic AV sequential paced rhythm. Viral respiratory panel negative. Blood cultures obtained 09/04/2024 are abnormal, 2 out of 2 cultures yielding gram-positive cocci in chains with PCR findings consistent with Streptococcus. Past Medical History: 1.History of atherosclerotic coronary artery disease -Status post acute myocardial infarction circa 1996 -Ischemic cardiomyopathy, LVEF previously 30-35%. -Status post CABG x 3 on 10/21/2015. MCGEE to the LAD. SVG to OM1. SVG to the OM2. 2.Paroxysmal atrial fibrillation. Prior admission with confusion, dysarthria, and right facial droop. MRI revealed small bilateral foci of acute watershed type ischemia in a pattern suggestive of showering of central emboli, no evidence of hemorrhagic transformation. Likely cardioembolic for which anticoagulation was initiated 3.Patient hospitalized with transient vision disturbance in both eyes, [facility] February [address]23. Head CT showed a small age indeterminate lacunar infarct in the left quintero radiata. As per Neurology his presenting symptoms could be consistent with a cardioembolic TIA to the occipital lobes or possibly amaurosis fugax. Ocular migraine also possible." MRI of the brain showed no acute intracranial abnormality. LDL cholesterol 51 mg/dL. Xarelto switch to Eliquis. Aspirin changed to Plavix. Carotid duplex was unremarkable, without evidence of a hemodynamically significant stenosis. 4.Asymptomatic frequent ventricular ectopy 5.Sustained ventricular tachycardia s/p dual chamber Medtronic ICD on 02/14/2019 and initiation of amiodarone. Device check Dec, 2023 A paced 99%, V paced 97% 6 .Peripheral arterial disease, [place] Dr. Lab[place] [facility] [place] Lower extremity angiogram performed on 11/21/21 - Right lower extremity with mild diffuse SFA/popliteal disease, 100% ostial PEDRO occlusion, 100% distal TPT occlusion, distal PEDRO reconstitutes at level of ankle without significant disease. Small [employer] reconstitutes at ankle. DPA is widely patent to forefoot. Unsuccessful antegrade and retrograde attempts made at right tibial intervention 7.Mitral regurgitation 8 .Atrial septal aneurysm 9 .Patent foramen ovale 10 .Hypertension 11.Dyslipidemia 12. Hypothyrodism 13.Type II diabetes mellitus with neuropathy 14.Obstructive sleep apnea 15.DVT in Left arm after left shoulder surgery from 11/2016 16. Prostate cancer Allergies Allergy/AdvReac Type Severity Reaction Status Date / Time lisinopril AdvReac Mild COUGHING Verified 08/13/24 10:59 Home Medications Medication Instructions Recorded Confirmed Type amiodarone 200 mg tablet 200 mg PO QAM 03/11/23 09/04/24 History cholecalciferol (vitamin D3) 50 50 mcg PO DAILY 03/11/23 09/04/24 History mcg (2,000 unit) capsule (Vitamin D3) furosemide 20 mg tablet 40 mg PO DAILY 03/11/23 09/04/24 History potassium chloride 10 mEq 10 meq PO DAILY 03/11/23 09/04/24 History capsule,extended release tamsulosin 0.4 mg capsule 0.4 mg PO DAILY #90 caps 07/29/23 09/04/24 Rx apixaban 2.5 mg tablet 2.5 mg PO BID 05/13/24 09/04/24 History bicalutamide 50 mg tablet (Casodex) 50 mg PO DAILY 05/13/24 09/04/24 History levothyroxine 112 mcg tablet 112 mcg PO QAM 05/13/24 09/04/24 History metoprolol succinate 50 mg 50 mg PO BID 05/13/24 09/04/24 History tablet,extended release 24 hr clopidogrel 75 mg tablet (Plavix) 75 mg PO DAILY 07/06/24 09/04/24 History degarelix 120 mg subcutaneous 240 mg subcut ONCE #2 ea 07/07/24 09/04/24 Rx solution (Firmagon kit with diluent syringe) degarelix 80 mg subcutaneous 80 mg subcut Q28D #1 ea 07/19/24 09/04/24 Rx solution (Firmagon kit with diluent syringe) degarelix 80 mg subcutaneous 80 mg subcut Q28D #1 ea 08/18/24 09/04/24 Rx solution (Firmagon kit with diluent syringe) Patient History Medical History History of aspiration pneumonia admitted to [facility] 04/2024 Ischemic cardiomyopathy "prior EF 35-40% in August 2008; improved EF 50-54% on 11/24/16 echo" Paroxysmal atrial fibrillation hx--"postoperative" History of cardioembolic stroke ~2016, 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 Mitral regurgitation follows w/ Dr Hyde HTN (hypertension) Dyslipidemia Diabetes mellitus no meds currently BHUPINDER (obstructive sleep apnea) no device PFO (patent foramen ovale) Atrial septal defect Gout Diabetic neuropathy Chronic anticoagulation Hx of renal calculi Hx of ventricular tachycardia Transient vision disturbance of both eyes Peripheral artery disease Rectal bleeding Bowel obstruction (04/2024) recent admission to [facility] DJD of left shoulder Surgical History 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" History of total right knee replacement (2004) History of lithotripsy Hx of inguinal hernia repair (1954) Hx of colonoscopy History of right shoulder replacement (2009) History of left shoulder replacement AICD present, double chamber MEDTRONIC, implanted 2018 Family History Brother V-tach required AICD Social History Smoking Status: Never smoker Second Hand Exposure: No; Do You Dip or Chew Tobacco: No; Hx Alcohol Use: No Hx Substance Use: No Preferred Language: Pashto Communication Ability: Effective Visual Impairment: No Limitations Hearing Ability: Normal It Analyst Required: No Beliefs That Will Affect Care: None marital status: Single Current Living Situation: Alone Current Living Situation Comment: home alone, daughter lives 12 miles away current occupational status: retired Feels Safe at Home: Yes Diet: regular during the past year weight has: decreased > 10 lbs Assistive Devices: Walker Review of Systems Review of Systems: All systems reviewed & are unremarkable except as noted in HPI & below Physical Exam Physical Exam: General: no acute distress and stated age Eyes: conjunctiva are pink and non-injected, sclera clear Neck: normal jugular venous pulse, no hepatojugular reflux Chest: normal shape and normal respiratory effort -left infraclavicular AICD pocket clean , dry and intact -No erythema Lungs: clear to auscultation and percussion Cardiac Exam: - regular heart sounds, no murmurs, rubs, or gallops, no jugular venous distention Abdomen: abdomen soft, non-tender, no abnormal masses and no hepatosplenomegaly Musculoskeletal: no gait disturbance, no weakness Extremities: no edema and no cyanosis : Nichols catheter in place draining clear yellow urine Neuro:awake, conversant, follows commands, no focal motor deficits Psych: appropriate affect and insight. Results & Data Vital Signs (Past 12 Hours) Vital Signs Temp Pulse Pulse Resp BP BP Pulse Ox 09/05/24 08:30 70 15 94/58 L 93 09/05/24 08:00 70 19 92/61 L 93 09/05/24 07:13 36.5 C 64 23 98/64 L 99 09/05/24 01:00 37 C 96/60 L 09/05/24 01:00 96/60 L 09/05/24 01:00 70 9 L 97 09/05/24 00:45 95/58 L 09/05/24 00:45 95/58 L 09/05/24 00:45 95/58 L 09/05/24 00:30 102/64 09/05/24 00:30 64 15 97 09/05/24 00:15 70 16 98 09/05/24 00:15 101/64 09/05/24 00:15 101/64 09/05/24 00:03 61 15 98 09/05/24 00:00 97/63 L 09/05/24 00:00 97/63 L 09/04/24 23:45 95/62 L 09/04/24 23:30 100/61 09/04/24 23:30 100/61 09/04/24 23:21 57 L 13 99 01/13/25 23:15 59 L 13 97 09/04/24 23:15 94/61 L 09/04/24 23:15 94/61 L 09/04/24 23:15 94/61 L 09/04/24 23:12 70 5 L 98 09/04/24 22:48 70 18 99 09/04/24 22:45 96/62 L 09/04/24 22:45 96/62 L 09/04/24 22:39 70 29 H 98 09/04/24 22:36 70 23 97 09/04/24 22:15 70 24 97 09/04/24 22:15 91/64 L 09/04/24 22:15 91/64 L 09/04/24 22:15 91/64 L 09/04/24 22:06 70 24 99 09/04/24 22:00 94/61 L 09/04/24 22:00 94/61 L 09/04/24 22:00 94/61 L 09/04/24 21:57 70 16 98 09/04/24 21:45 95/62 L 09/04/24 21:36 70 19 98 09/04/24 21:15 93/63 L 09/04/24 21:15 93/63 L 09/04/24 21:15 93/63 L 09/04/24 21:15 70 24 99 O2 Del Method O2 Flow Rate 09/05/24 08:30 Room Air 09/05/24 08:00 Room Air 09/05/24 07:13 Nasal Cannula 4 09/05/24 01:00 09/05/24 01:00 09/05/24 01:00 09/05/24 00:45 09/05/24 00:45 09/05/24 00:45 09/05/24 00:30 09/05/24 00:30 09/05/24 00:15 09/05/24 00:15 09/05/24 00:15 09/05/24 00:03 09/05/24 00:00 09/05/24 00:00 09/04/24 23:45 09/04/24 23:30 09/04/24 23:30 09/04/24 23:21 09/04/24 23:15 09/04/24 23:15 09/04/24 23:15 09/04/24 23:15 09/04/24 23:12 09/04/24 22:48 09/04/24 22:45 09/04/24 22:45 09/04/24 22:39 09/04/24 22:36 09/04/24 22:15 09/04/24 22:15 09/04/24 22:15 09/04/24 22:15 09/04/24 22:06 09/04/24 22:00 09/04/24 22:00 09/04/24 22:00 09/04/24 21:57 09/04/24 21:45 09/04/24 21:36 09/04/24 21:15 09/04/24 21:15 09/04/24 21:15 09/04/24 21:15 Diagnostic Findings Summary of ttecho performed 09/05/24: The study is technically adequate for the evaluation of the referral indication. The left ventricle is mildly dilated. There is moderate concentric left ventricular hypertrophy. The septal wall motion is abnormal and consistent with right ventricular pacemaker activation. The posterior wall is akinetic at the base and mid level. The inferior wall is severely hypokinetic at the base. All other wall segments are hypokinetic. Left ventricular systolic function is severely reduced. The qualitative left ventricualr ejection fraction=25-29% The left atrium is severely dilated. The aortic valve is mildly calcified. Aortic stenosis is absent. There is moderate mitral regurgitation. There is moderate tricuspid regurgitation. The pulmonary artery systolic pressure is estimated be 40 mmHg (mildly elevated). Diastolic dysfunction, Grade III (restrictive pattern), consistent with markedly increased left atrial pressure. Compared to the images obtained at the time of the previous study dated 03/12/2023, there has been interval decline in the left ventricular ejection fraction which was 30-35% at that time. Moderate tricuspid regurgitation is now noted. Grade III diastolic dysfunction noted. ulisses transthoracic echocardiogram performed 09/05/2024
[2024-09-05] MEDS ORDERED: POLYETHYLENE (MIRALAX) 17 GM PACK PO PRN (10:20)
[2024-09-05] MEDS: NOREPINEPHRINE/D5W 4 MG/250 ML PLCT IV SCH ×2 (10:24→19:28)
--- NOTE | 2024-09-05 10:29 | Critical Care Progress Note ---
Date of Service September 05, 2024 Assessment & Plan (1) Acute lactic acidosis: (2) Sepsis: (3) Elevated brain natriuretic peptide (BNP) level: (4) VENITA (acute kidney injury): (5) Hepatopathy: (6) Chronic anticoagulation: (7) Ascites: (8) Acute systolic heart failure: (9) Streptococcemia: (10) Anemia: (11) Thrombocytopenia: Plan Lactic acidosis resolved. Blood cultures are positive for streptococcal species. Antibiotics de-escalated to Ancef. Possible sources or extremity ulcer. Urinalysis was not suggestive of UTI. Chest imaging was not overtly suggestive of pneumonia. Radiology did note mild heterogeneous opacification of the left lower lobe which I suspect is atelectasis. Patient saturating well on room air and without productive cough or pneumonia symptoms. 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 BNP also significantly elevated. Will continue to hold on diuresis today given that he has been fluid responsive from a sepsis perspective and remains comfortable on room air from an oxygen saturation perspective and a dyspnea perspective. Will check acute hepatitis panel given transaminitis. Will hold on paracentesis at this time as he does not display any peritoneal signs. Suspect that the ascitic fluid is related to cardiac cirrhosis noted above and less likely related to peritonitis. Continue to monitor urine output closely. Can consider diuresis later in the day if he develops hypoxemia or decreased urine output. Appreciate cardiology and nephrology input. Will hold on ionotropic support or vasopressor support at this time as he appears normotensive in relation to his outpatient blood pressures. Will check peripheral smear and fibrinogen level given acute anemia and thrombocytopenia. Suspect this is related to sepsis coagulopathy. Will continue to trend labs. Holding anticoagulation at this present time. Patient does have high risk of potential VTE and also has a prior history of stroke from embolic phenomenon. Will monitor in the ICU this morning and consider transfer to PCU later in the day depending on clinical picture. Admission and Anticipated Discharge Date Admission Date: September 04, 2024 Subjective Patient seen and examined today. Clinically improved. Saturating well on room air and denies any dyspnea or chest pain. Denies any nausea, vomiting or abdominal discomfort. No dizziness. He does complain of some discomfort related to the Nichols catheter. Review of Systems Review of Systems: All systems reviewed & are unremarkable except as noted in HPI & below Physical Exam Physical Exam: Constitutional: Patient appears to be of their stated age. Patient is in no apparent distress. Patient is well-developed. Eyes: Pupils are equal round and reactive to light. Conjunctivae are normal. Anicteric sclera. Ears nose, mouth and throat: Mallampati class 2. Normal posterior oropharynx. Uvula is midline. BiPAP mask in place. Neck: Trachea is midline. Visual inspection is normal. Respiratory: Clear to auscultation bilaterally. No use of accessory muscles. No significant clubbing noted. Mildly tachypneic. Cardiovascular: Regular rate and rhythm. No murmurs. 3+ edema in the lower extremities bilaterally. Mild fluid wave on abdomen exam. Gastrointestinal: Normal bowel sounds, soft, nontender and nondistended. No hepatosplenomegaly noted. Musculoskeletal: No cyanosis. Patient is able to move all extremities. Strength is 5 out of 5 in the upper and lower extremities. Skin: No rashes, warm dry and intact. Neurologic: No obvious focal neurological deficits seen. Psychiatric: Alert and oriented x3 with a euthymic affect. Results & Data Results & Data Vital Signs (Past 12 Hours) Vital Signs Temp Pulse Pulse Resp BP BP Pulse Ox 09/05/24 09:00 70 20 98/65 L 95 09/05/24 08:30 70 15 94/58 L 93 09/05/24 08:00 70 19 92/61 L 93 09/05/24 07:13 36.5 C 64 23 98/64 L 99 09/05/24 01:00 37 C 96/60 L 09/05/24 01:00 96/60 L 09/05/24 01:00 70 9 L 97 09/05/24 00:45 95/58 L 09/05/24 00:45 95/58 L 09/05/24 00:45 95/58 L 09/05/24 00:30 102/64 09/05/24 00:30 64 15 97 09/05/24 00:15 70 16 98 09/05/24 00:15 101/64 09/05/24 00:15 101/64 09/05/24 00:03 61 15 98 09/05/24 00:00 97/63 L 09/05/24 00:00 97/63 L 09/04/24 23:45 95/62 L 09/04/24 23:30 100/61 09/04/24 23:30 100/61 09/04/24 23:21 57 L 13 99 09/04/24 23:15 59 L 13 97 09/04/24 23:15 94/61 L 09/04/24 23:15 94/61 L 09/04/24 23:15 94/61 L 09/04/24 23:12 70 5 L 98 09/04/24 22:48 70 18 99 09/04/24 22:45 96/62 L 09/04/24 22:45 96/62 L 09/04/24 22:39 70 29 H 98 09/04/24 22:36 70 23 97 O2 Del Method O2 Flow Rate 09/05/24 09:00 Room Air 09/05/24 08:30 Room Air 09/05/24 08:00 Room Air 09/05/24 07:13 Nasal Cannula 4 09/05/24 01:00 09/05/24 01:00 09/05/24 01:00 09/05/24 00:45 09/05/24 00:45 09/05/24 00:45 09/05/24 00:30 09/05/24 00:30 09/05/24 00:15 09/05/24 00:15 09/05/24 00:15 09/05/24 00:03 09/05/24 00:00 09/05/24 00:00 09/04/24 23:45 09/04/24 23:30 09/04/24 23:30 09/04/24 23:21 09/04/24 23:15 09/04/24 23:15 09/04/24 23:15 09/04/24 23:15 09/04/24 23:12 09/04/24 22:48 09/04/24 22:45 09/04/24 22:45 09/04/24 22:39 09/04/24 22:36 Coding Level of Care Code 14641 SUB INP/OBS CARE 3/50MIN Diagnoses Acute lactic acidosis E87.21 Sepsis A41.9 Elevated brain natriuretic peptide (BNP) level R79.89 VENITA (acute kidney injury) N17.9 Hepatopathy K76.9 Chronic anticoagulation Z79.01 Ascites R18.8 Acute systolic heart failure I50.21 Streptococcemia A40.9 Anemia D64.9 Thrombocytopenia D69.6
[2024-09-05] MEDS: DOCUSATE SODIUM 100 MG CAP PO SCH (11:57)
[2024-09-05 12:18] LABS: Basophils # (auto) 0.01 K/uL (0.00-0.20); Basophils % (auto) 0.2 %; Eosinophils # (auto) 0.01 K/uL (0.00-0.50); Eosinophils % (auto) 0.2 %; Hematocrit (blood only) 24.5 % (42.0-52.0); Hemoglobin 8.2 g/dl (14.0-18.0); Immature Granulocytes % (auto) 1.6 %; Lymphocytes # (auto) 0.41 K/uL (1.20-3.40); Lymphocytes % (auto) 6.5 %; Mean Corpuscular Hemoglobin 26.1 pg (25.0-34.0); Mean Corpuscular Hgb Conc 33.5 g/dL (32.0-36.0); Mean Platelet Volume 11.1 fL (9.4-12.4); Monocytes # (auto) 0.34 K/uL (0.11-0.59); Monocytes % (auto) 5.4 %; Neutrophils # (auto) 5.39 K/uL (1.40-6.50); Neutrophils % (auto) 86.1 %; Platelet Count 72 K/uL (130-400); RDW Coefficient of Variation 21.9 % (11.5-14.5); RDW Standard Deviation 60.7 fL (36.4-46.3); Red Blood Count 3.14 M/uL (4.70-6.10); White Blood Count 6.26 K/ul (4.8-10.8)
--- NOTE | 2024-09-05 12:18 | Hospitalist Progress Note ---
Date of Service September 05, 2024 Assessment & Plan (1) Acute lactic acidosis: (2) Acute hypoxemic respiratory failure: (3) Elevated brain natriuretic peptide (BNP) level: (4) Acute kidney injury superimposed on stage 3b chronic kidney disease: (5) Elevated liver function tests: (6) Elevated troponin level: (7) Hyperkalemia: Plan Junior Garcia is an 84-year-old male past medical history of DM type II, diabetic neuropathy, diabetic peripheral angiopathy, gouty arthropathy, hypothyroidism, BHUPINDER/nocturnal hypoxemia intolerant to CPAP, CKD stage IIIb, HTN, HLD, left arm DVT in 2017, paroxysmal atrial fibrillation anticoagulated with Eliquis, ventricular tachycardia s/p pacer-defibrillator placement in 2019, CAD s/p CABG x 3 in 2015, ischemic cardiomyopathy, systolic CHF, peripheral artery disease, left vertebral artery stenosis, atrial septal aneurysm, prostate cancer [currently receiving radiation + Casodex + Firmagon], 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 Sepsis Strep Bacteremia Possible Pneumonia Foot wound Acute metabolic Encephalopathy patient presented unresponsive and confused lactic acidosis noted, currently improved Procalcitonin elevated at 1.93 MRSA nares negative Respiratory bio fire panel negative UA unremarkable, no reflex urine culture Blood cultures 4 out of 4 bottles currently growing group B strep agalactiae chest x-ray noting cardiomegaly with pulmonary edema and small pleural effusions CT chest concerning for pneumonia CT abdomen pelvis concerning for cystitis patient with left foot wound On IV Ancef at this time Echo for noted bacteremia with no endocarditis repeat blood cultures in 48 hours ID consult acute confusion likely in setting of infection, consider head CT Continue to monitor Acute hypoxic respiratory failure Possible pneumonia Pulmonary edema Pleural Effusions patient initially requiring oxygen supplementation X-ray and CT concerning for fluid overload Respiratory bio fire negative as noted above VBG noting pH of 7.34, pCO2 of 33 and bicarb of [address] was concerning for pneumonia Was initially on cefepime and Flagyl, transition to Ancef currently deferring on diuretic use at this time in the setting of sepsis patient currently on room air and improved Continue to monitor Acute Kidney Injury on CKD creatinine baseline of 1.4-1.6 creatinine has been trending up to 3.14 Nephrology consulted, appreciate recs Avoid nephrotoxic medications when able Monitor renal function closely Transaminitis Ascites Liver enzymes significantly elevated abdominal imaging noting large volume ascites and anasarca Likely in the setting of fluid overload and shock liver CT abdomen pelvis noting unremarkable liver hepatitis panel ordered in the ICU Consider abdominal ultrasound GI consulted, appreciate recs Continue to monitor LFTs Demand ischemia Acute on Chronic Systolic and Diastolic Congestive Heart Failure Trops elevated but flat in the 30-40 range EKG ruled out for acute ischemia by interventional cardiology echo with noted EF of 25 to 29%, diastolic grade 3 dysfunction septal wall abnormalities posterior wall akinetic with hypokinesis of the inferior wall, left atrium severely dilated, moderate MR, moderate TR and mildly elevated pulmonary artery systolic pressure chest imaging concerning for cardiomegaly with pulmonary edema and small pleural effusions. Noted large volume ascites and anasarca No diuretics at this time cardiology consulted, appreciate further recs Atrial fibrillation Holding Eliquis for now Hold metoprolol succinate in setting of hypotension and sepsis Amiodarone also on hold Resume both as able Hyperkalemia K+ 5.7 on initial laboratory evaluation Treated with calcium gluconate/insulin in ED Continue to monitor and manage PRN Anemia Thrombocytopenia Hemoglobin and platelet levels noted to be low holding home Eliquis Continue home Plavix Hypothyroidism continue levothyroxine. CAD/HLD Continue statin, Plavix Prostate Cancer Follows with Dr. Alejandro [[facility]] Currently undergoing radiation / [facility] + chemotherapy Continue Casodex DVT Prophylaxis: SCDs/TEDs for now. Code Status: DNR/DNI - No Resuscitation PCP: Sandra Judge MD Disposition: PT/OT for further recs once medically stable Admission and Anticipated Discharge Date Admission Date: September 04, 2024 Subjective patient was seen with nursing at bedside in the a.m. 1 episode of shortness of breath Alert and oriented x 3, denies use of hearing aids Denies any fevers, chills or night sweats Review of Systems Review of Systems: All systems reviewed & are unremarkable except as noted in Subjective Physical Exam Physical Exam: General: AAOx3 No acute distress Skin: left foot wound noted Psych: Appropriate mood and affect Neuro:AAOx3 HEENT: NC/AT CV: RRR Resp: Breath sounds clear bilaterally, no increased effort of breathing Abdomen: Soft, nontender Extremities: left foot wound noted Results & Data Results & Data Vital Signs (Past 12 Hours) Vital Signs Temp Pulse Pulse Resp BP BP Pulse Ox 09/05/24 12:00 36.5 C 70 20 83/62 L 95 09/05/24 11:00 70 14 86/61 L 95 09/05/24 09:00 70 20 98/65 L 95 09/05/24 08:30 70 15 94/58 L 93 09/05/24 08:00 70 19 92/61 L 93 09/05/24 07:13 36.5 C 64 23 98/64 L 99 09/05/24 01:00 37 C 96/60 L 09/05/24 01:00 96/60 L 09/05/24 01:00 70 9 L 97 09/05/24 00:45 95/58 L 09/05/24 00:45 95/58 L 09/05/24 00:45 95/58 L 09/05/24 00:30 102/64 09/05/24 00:30 64 15 97 O2 Del Method O2 Flow Rate 09/05/24 12:00 Room Air 09/05/24 11:00 Room Air 09/05/24 09:00 Room Air 09/05/24 08:30 Room Air 09/05/24 08:00 Room Air 09/05/24 07:13 Nasal Cannula 4 09/05/24 01:00 09/05/24 01:00 09/05/24 01:00 09/05/24 00:45 09/05/24 00:45 09/05/24 00:45 09/05/24 00:30 09/05/24 00:30 Diagnostic Findings Chest X-Ray 09/04/24 14:31 XR chest 1V portable HISTORY: 84 years-old Male Chest pain, nonspecific COMPARISON: 05/13/2024 TECHNIQUE: AP view of the chest FINDINGS: Cardiac silhouette is enlarged. Median sternotomy. Left subclavian pacer/AICD. Interstitial pulmonary edema with small pleural effusions and mild bibasilar atelectasis. Bilateral shoulder arthroplasties. IMPRESSION: 1. Cardiomegaly with pulmonary edema. 2. Small pleural effusions. ACT 112: Negative or not required by law. The above report was generated using voice recognition software. It may contain grammatical, syntax or spelling errors. Electronically signed by: Dennis Bazzi M.D. 09/04/2024 3:27 PM Abdomen/Pelvis CT 09/04/24 17:21 EXAMINATION: Abdomen and pelvis CT without CLINICAL HISTORY: Lower abdominal pain dysuria PRIORS: 05/13/2024 TECHNIQUE: Contiguous axial images were obtained through the abdomen and pelvis without the use of intravenous contrast. Sagittal and coronal reformations are supplied. FINDINGS: Small bilateral pleural effusions appearing in the interval. Mild hypoventilatory changes at the left lung base. Heart size is enlarged. Calcified subcarinal lymph nodes representing prior granulomatous exposure. A large volume of ascites present, appearing in the interval. Diffuse body wall edema noted, compatible with anasarca, also appearing in the interval. Allowing for the absence of intravenous contrast, the liver, spleen, stomach, and adrenals are morphologically unremarkable. Advanced atherosclerotic disease of the aorta and mesenteric vessels is noted. No dilated or fluid-filled loops of bowel on the current examination. No significant formed stool noted in the colonic lumen. No extraluminal gas or drainable fluid collection. Small amount of fluid present within the umbilicus. A Nichols catheter balloon present in the urinary bladder which itself is under distended. No renal calculus or hydronephrosis. Bilateral inguinal hernias containing fat. Gallstones present in the gallbladder lumen. Gallbladder itself is contracted. In bone windows, moderate osseous demineralization and degenerative change throughout the lumbar spine noted. IMPRESSION: 1. Small bilateral pleural effusions, appearing in the interval. 2. Large volume of ascites and anasarca, appearing in the interval. 3. No dilated loops of bowel or bowel obstruction. 4. Cholelithiasis. 5. Nichols catheter balloon in the urinary bladder with under distended urinary bladder and possible circumferential wall thickening which could suggest cystitis given the stated clinical history. No emphysematous cystitis. ACT 112: Positive. There are findings on this examination that require communication between the performing entity and the patient following Patient Test Result Information Act ([place] ACT 112) guidelines. Electronically signed by Sue Doyle 09-04-2024 6:[address] 09/04/24 17:21 EXAMINATION: Chest CT without CLINICAL HISTORY: Lower abdominal pain dysuria TECHNIQUE: Contiguous axial images were obtained through the chest without the use of intravenous contrast. Sagittal and coronal reformations are supplied. COMPARISON: None FINDINGS: Bilateral shoulder arthroplasties , Median sternotomy wires and left-sided cardiac device create beam hardening artifact greatly diminishing image quality. Allowing for this, the chest is well-expanded with mild airspace consolidation in the left lower lobe. Small bilateral pleural effusions noted, right slightly greater than left. Heart size is markedly enlarged. Advanced atherosclerotic disease of the aorta and coronary arteries noted. Calcified mediastinal and hilar lymph nodes present representing prior granulomatous exposure. No adenopathy. Trachea and mainstem bronchi are patent. Anasarca present. Large volume of ascites present in the upper abdomen. In bone windows, moderate osseous demineralization noted with mild kyphosis and degenerative change throughout the lumbar spine. No high-grade compression fracture. IMPRESSION: 1. Mild heterogeneous opacification in the left lower lobe which could suggest pneumonia in the proper clinical setting. 2. Small bilateral pleural effusions and anasarca within the chest wall. 3. Ascites present at the edge of the [id number]. 4. Severe cardiomegaly Electronically signed by Sue Doyle 09-04-2024 6:41 PM Foot X-Ray 09/05/24 00:40 EXAM: XR foot LT 2V CLINICAL HISTORY: Concern for osteomyelitis vs deep tissue infection. TECHNIQUE: X-ray images of the left foot were obtained in anteroposterior (AP), lateral projections. COMPARISON: No prior studies are available for comparison. FINDINGS: Bone Structure: The bone structure is normal and aligned. No evidence of fracture or dislocation. No osseous lesions or abnormalities were identified. A Stieda process of talus bone. Moderate metatarsus varus noted. Joint Spaces: Mild osteoarthritic changes at multiple visualized joints of the ankle, Intratarsal, and interphalangeal joints. Soft Tissues: Soft tissues appear normal and unremarkable. No soft tissue swelling, calcifications, or foreign bodies noted. Additional Findings: Plantar calcaneal spur is seen. Vascular calcification is seen. IMPRESSION: 1. No obvious/definite features of osteomyelitis however MRI is suggested if clinical concerns persist. 2. Mild osteoarthritic changes at multiple visualized joints of the ankle, Intratarsal, and interphalangeal joints. Disclaimer: A subtle bone abnormality or fracture may not be readily apparent on X-rays, thus clinical correlation and further imaging including follow-up CT, MRI, or follow-up X-rays are advised as needed. Electronically signed by Elizabeth Whittaker 09-05-2024 02:40 AM
[2024-09-05 12:47] LABS: Fibrinogen 270 mg/dl (184-400)
[2024-09-05 12:54] LABS: Anisocytosis Present; Target Cells 1+; Tear Drop Cells 1+
[2024-09-05 13:12] LABS: Hep B Surface Ag with confirm Negative (Negative)
[2024-09-05 14:49] LABS: Hep C Ab Rflx HepCQuant RNA Negative (Negative)
[2024-09-05 16:20] LABS: BUN Creatinine Ratio 18.5 (10-20); Creatinine Clr Calc Pharmacy 20.9 ml/min; Potassium 4.3 mmol/L (3.5-5.1)
[2024-09-05] MEDS: ceFAZolin 2000MG 2,000 MG/15 ML SYR IV SCH (17:53)
[2024-09-06 04:48] LABS: Basophils # (auto) 0.02 K/uL (0.00-0.20); Basophils % (auto) 0.3 %; Eosinophils # (auto) 0.29 K/uL (0.00-0.50); Eosinophils % (auto) 4.3 %; Hematocrit (blood only) 25.4 % (42.0-52.0); Hemoglobin 8.7 g/dl (14.0-18.0); Immature Granulocytes # (auto) 0.05 K/uL (0.01-0.20); Immature Granulocytes % (auto) 0.7 %; Lymphocytes % (auto) 5.9 %; Mean Corpuscular Hemoglobin 26.3 pg (25.0-34.0); Mean Corpuscular Hgb Conc 34.3 g/dL (32.0-36.0); Mean Corpuscular Volume 76.7 fL (80.0-100.0); Mean Platelet Volume 10.8 fL (9.4-12.4); Monocytes # (auto) 0.38 K/uL (0.11-0.59); Monocytes % (auto) 5.6 %; Neutrophils # (auto) 5.65 K/uL (1.40-6.50); Neutrophils % (auto) 83.2 %; Platelet Count 104 K/uL (130-400); RDW Coefficient of Variation 21.7 % (11.5-14.5); RDW Standard Deviation 58.7 fL (36.4-46.3); Red Blood Count 3.31 M/uL (4.70-6.10); White Blood Count 6.79 K/ul (4.8-10.8)
[2024-09-06 05:02] LABS: Albumin Globulin Ratio 1.1 (0.9-2); Albumin Level 2.7 gm/dl (3.4-5.0); BUN Creatinine Ratio 20.4 (10-20); Bilirubin,Total 2.2 mg/dl (0.2-1.0); Calcium 8.2 mg/dl (8.6-10.3); Creatinine Clr Calc Pharmacy 21.5 ml/min; Globulin 2.4 gm/dl (2.5-4.0); Phosphorus 3.6 mg/dl (2.5-4.9); Potassium 4.2 mmol/L (3.5-5.1); Total Protein 5.1 gm/dl (6.0-8.3)
[2024-09-06 05:09] LABS: Anisocytosis Present; Target Cells 1+
[2024-09-06 05:16] LABS: INR 1.6 (0.9-1.1); Prothrombin Time 16.2 Seconds (9.0-12.0)
--- NOTE | 2024-09-06 06:31 | Electrocardiogram Report ---
Test Reason : Blood Pressure : */* mmHG Vent. Rate : 77 BPM Atrial Rate : 77 BPM P-R Int : 140 ms QRS Dur : 22 ms QT Int : 366 ms P-R-T Axes : 90 0 95 degrees QTcB Int : 414 ms AV dual-paced rhythm Abnormal ECG When compared with ECG of 13-May-2024 13:22, AV pacing is now present Confirmed by Geraldo Lawson ([id number]) on 09/06/2024 6:31:34 AM Referred By: REFERRED SELF Confirmed By: Geraldo Lawson
[2024-09-06] MEDS ORDERED: GLUCOSE 10 TAB/TUBE PO PRN (07:02)
[2024-09-06] MEDS ORDERED: DEXTROSE 50% 50 ML SYRINGE IV PRN (07:02)
[2024-09-06] MEDS ORDERED: GLUCAGON FOR INJ 1 MG VIAL SQ PRN (07:02)
[2024-09-06] MEDS ORDERED: GLUCOSE 40% GEL 15 GM TUBE PO PRN (07:02)
[2024-09-06] MEDS ORDERED: CARBOHYDRATES FOR HYPOGLYCEMIA PO PRN (07:02)
--- NOTE | 2024-09-06 07:41 | Ultrasound Report ---
EXAM: US liver CLINICAL HISTORY: ELEVATED LFTs. KNOWN ASCITES. TECHNIQUE: Ultrasound of the limited abdomen was performed in greyscale and Doppler. Limited visualization due to limited positioning and increased bowel gas. COMPARISON: Prior CT study dated 09/04/2024 was reviewed. FINDINGS: Liver: Liver size: Enlarged (LS=19.47cm). Coarse texture, periportal thickening, and irregular borders are seen. No evidence of focal lesions, cysts, or masses. Hepatic vasculature appears normal. Moderate perihepatic fluid collection. Gallbladder: A 1.2 cm stone is seen. Gallbladder appears normal in size. Circumferential wall thickening (4.2 mm). No evidence of gallbladder wall edema or signs of acute cholecystitis. Biliary Tree: Common bile duct diameter: 5 mm. Common bile duct is within normal limits in caliber and not dilated. No evidence of choledocholithiasis or biliary obstruction. Right kidney: Limited visualization. No hydronephrosis. Noted right costophrenic angle fluid/ pleural effusion. IMPRESSION: 1. Enlarged liver (LS=19.47cm), with coarse texture, periportal tract thickening, and irregular borders, suggesting hepatic chronic parenchymal liver disease/ Cirrhosis, advised for lab correlation. 2. Moderate free perihepatic fluid collection. 3. Right pleural effusion. 4. Gall bladder stone, with circumferential gall bladder wall thickening, due to either wall edema secondary to ascites or chronic calcular cholecystitis. 5. No interval changes. Electronically signed by Elizabeth Whittaker 09-06-2024 07:40 AM
[2024-09-06] MEDS: INSULIN ASPART PER UNIT CHARGE SC SCH (08:18)
--- NOTE | 2024-09-06 10:30 | Gastrointestinal Consultation ---
Date of Consultation September 06, 2024 Assessment & Plan (1) Ascites: GI asked to see for elevated LFTs and ascites. no signs of liver disease on CT. Suspect that ascites and elevated LFTs are secondary to heart failure. - would recommend large volume paracentesis. - can trend LFTs. these appear to mostly be trending down. Supervising Physician Co-Signing Physician Notes Patient with prostate cancer undergoing radiation. Was sent in by the radiation therapist due to cyanosis low blood pressure. Patient has anasarca and ascites. Clinically and by echocardiogram he has right heart failure pulmonary hypertension. The ascites is likely cardiac. He is requiring pressures. Agree that paracentesis at this point will not really affect his management. This does not look like an SBP pitcher. Patient has had a history of diarrhea with his prostate radiation. For least 2 or 3 weeks. Testing positive for C. difficile PCR negative for toxin. This is most consistent with a carrier state. However this patient is critically ill. He is getting broad-spectrum antibiotics. Very high risk situation for C. difficile. Currently getting vancomycin. Liver enzymes likely passive congestion. They are improving GI will take a backseat follow his liver tests and C. difficile from a distance. History of Present Illness Reason for Consultation: ascites / elevated LFTs Requesting Physician: Malena Barnes MD Attending Physician: Papito Reeves MD History of Present Illness Patient is an 84-year-old male past medical history of DM type II, diabetic neuropathy, diabetic peripheral angiopathy, gouty arthropathy, hypothyroidism, BHUPINDER/nocturnal hypoxemia intolerant to CPAP, CKD stage IIIb, HTN, HLD, left arm DVT in 2018, paroxysmal atrial fibrillation anticoagulated with Eliquis, ventricular tachycardia s/p pacer-defibrillator placement in 2019, CAD s/p CABG x 3 in 2016, ischemic cardiomyopathy, systolic CHF, peripheral artery disease, left vertebral artery stenosis, atrial septal aneurysm, prostate cancer [currently receiving radiation + Casodex + Firmagon], 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 Currently, he is admitted with respiratory failure and CHF. GI consulted as LFTs are elevated. Liver looks unremarkable on CT, but there is large a scites/ansarca. no history of cirrhosis. He denies nausea, vomiting, heartburn, abdominal pain, changes in bowels, or history of liver disease. 09/06/24 T bili 2.2, AST 333, ALT 313, ALK phos 119. INR 1.6. Hep Bs Antigen and hep C negative. Allergies Allergy/AdvReac Type Severity Reaction Status Date / Time lisinopril AdvReac Mild COUGHING Verified 08/13/24 10:59 Home Medications Medication Instructions Recorded Confirmed Type amiodarone 200 mg tablet 200 mg PO QAM 03/11/23 09/04/24 History cholecalciferol (vitamin D3) 50 50 mcg PO DAILY 03/11/23 09/04/24 History mcg (2,000 unit) capsule (Vitamin D3) furosemide 20 mg tablet 40 mg PO DAILY 03/11/23 09/04/24 History potassium chloride 10 mEq 10 meq PO DAILY 03/11/23 09/04/24 History capsule,extended release tamsulosin 0.4 mg capsule 0.4 mg PO DAILY #90 caps 07/29/23 09/04/24 Rx apixaban 2.5 mg tablet 2.5 mg PO BID 05/13/24 09/04/24 History bicalutamide 50 mg tablet (Casodex) 50 mg PO DAILY 05/13/24 09/04/24 History levothyroxine 112 mcg tablet 112 mcg PO QAM 05/13/24 09/04/24 History metoprolol succinate 50 mg 50 mg PO BID 05/13/24 09/04/24 History tablet,extended release 24 hr clopidogrel 75 mg tablet (Plavix) 75 mg PO DAILY 07/06/24 09/04/24 History degarelix 120 mg subcutaneous 240 mg subcut ONCE #2 ea 07/07/24 09/04/24 Rx solution (Firmagon kit with diluent syringe) degarelix 80 mg subcutaneous 80 mg subcut Q28D #1 ea 07/19/24 09/04/24 Rx solution (Firmagon kit with diluent syringe) degarelix 80 mg subcutaneous 80 mg subcut Q28D #1 ea 08/18/24 09/04/24 Rx solution (Firmagon kit with diluent syringe) Patient History Medical History History of aspiration pneumonia admitted to [facility] 04/2024 Ischemic cardiomyopathy "prior EF 35-40% in August 2008; improved EF 50-54% on 11/24/16 echo" Paroxysmal atrial fibrillation hx--"postoperative" History of cardioembolic stroke ~2016, 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 Mitral regurgitation follows w/ Dr Hyde HTN (hypertension) Dyslipidemia Diabetes mellitus no meds currently BHUPINDER (obstructive sleep apnea) no device PFO (patent foramen ovale) Atrial septal defect Gout Diabetic neuropathy Chronic anticoagulation Hx of renal calculi Hx of ventricular tachycardia Transient vision disturbance of both eyes Peripheral artery disease Rectal bleeding Bowel obstruction (04/2024) recent admission to [facility] DJD of left shoulder Surgical History 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" History of total right knee replacement (2004) History of lithotripsy Hx of inguinal hernia repair (1954) Hx of colonoscopy History of right shoulder replacement (2009) History of left shoulder replacement AICD present, double chamber [employer], implanted 2018 Family History Brother V-tach required AICD Social History Smoking Status: Never smoker Second Hand Exposure: No; Do You Dip or Chew Tobacco: No; Hx Alcohol Use: No Hx Substance Use: No Preferred Language: [place] Communication Ability: Effective Visual Impairment: No Limitations Hearing Ability: Normal Resort Desk Clerk Required: No Beliefs That Will Affect Care: None marital status: Single Current Living Situation: Alone Current Living Situation Comment: home alone, daughter lives 12 miles away current occupational status: retired Feels Safe at Home: Yes Diet: regular during the past year weight has: decreased > 10 lbs Assistive Devices: Walker Review of Systems Review of Systems: All systems reviewed & are unremarkable except as noted in HPI & below Physical Exam Constitutional: WD/WN, vitals as above Respiratory: normal respiratory effort, lungs clear to auscultation Cardiovascular: Rate/Rhythm: regular rate and regular rhythm Gastrointestinal (Abdomen): ascites, normal bowel sounds, soft, nontender. Psychiatric: Orientation: alert and oriented x 3 Affect: euthymic affect Results & Data Vital Signs (Past 12 Hours) Vital Signs Temp Pulse Resp BP Pulse Ox O2 Del Method 09/06/24 08:30 110/65 09/06/24 08:00 98.2 F 09/06/24 08:00 Room Air 09/06/24 07:36 66 19 96 09/06/24 07:03 65 23 95 09/06/24 07:00 120/72 09/06/24 07:00 120/72 09/06/24 07:00 120/72 09/06/24 04:00 99/61 L 09/06/24 04:00 99/61 L 09/06/24 03:48 52 L 18 93 09/06/24 03:30 97/60 L 09/06/24 03:30 97/60 L 09/06/24 03:27 57 L 18 93 09/06/24 03:06 70 21 92 09/06/24 02:36 70 19 93 09/06/24 02:06 67 18 92 09/06/24 02:00 90/55 L 09/06/24 01:57 70 18 94 09/06/24 01:30 59 L 18 92 09/06/24 01:30 95/56 L 09/06/24 01:12 70 22 93 09/06/24 01:00 100/59 L 09/06/24 00:57 70 20 93 09/06/24 00:33 70 19 93 09/06/24 00:30 96/51 L 09/06/24 00:27 70 26 H 93 09/06/24 00:15 69 19 93 09/05/24 23:45 70 21 91 09/05/24 23:30 93/56 L 09/05/24 23:30 93/56 L 09/05/24 23:21 70 17 94 09/05/24 23:03 69 20 94 09/05/24 23:00 95/53 L 09/05/24 22:45 70 20 95 09/05/24 22:31 90/58 L 09/05/24 22:31 90/58 L 09/05/24 22:31 90/58 L 09/05/24 22:30 70 21 89 L Coding Level of Care Code 36218 INT INP/OBS CARE 2/55MIN Diagnoses Ascites R18.8
--- NOTE | 2024-09-06 10:30 | Cardiology Progress Note ---
Date of Service September 06, 2024 Assessment & Plan (1) Sepsis: (2) VENITA (acute kidney injury): (3) Acute systolic heart failure: Plan 54-year-old male with acute on chronic heart failure with reduced ejection fraction due to ischemic cardiomyopathy. Complex cardiac history. Patient with underlying immunocompromised state in the setting of prostate cancer with radiation therapy. CT of the chest performed on admission revealed possible left lower lobe pneumonia as well as small bilateral pleural effusions and ascites. Lactic acidosis noted on presentation as well as thrombocytopenia and acute kidney injury. Mild troponin elevation, flat trend. Strep agalactiae on 09/24 blood cultures obtained 09/04/23. Echocardiogram reveals severe left ventricular systolic function, slightly worse than his previous baseline but I think in part today study is just more informative as to the ultrasound images are of better technical quality. Patient is on clopidogrel and Eliquis due to his history of coronary disease and recurrent cardioembolic stroke. With findings of thrombocytopenia agree with holding Eliquis for now and continuing clopidogrel with caution. Knee high SCDs in place for DVT prophylaxis. * Transaminases trending down slightly. Hepatic ultrasound findings noted, given patient's underlying cardiac status, chronic hepatic congestion with recent hypoperfusion certainly consideration. Patient has been on chronic amiodarone for prevention of recurrent life-threatening ventricular tachycardia. Amiodarone on hold at present. * Acute kidney injury noted. Creatinine remains elevated but stable today. Continue low-dose norepinephrine 0.05 mcg/kg/min for blood pressure support. Suspect underlying ATN from hemodynamic insult early in his sepsis process. * Question if the left foot wound is the source of his strep bacteremia. Patient describes podiatry care for this lesion for the last 3 years. X-ray not suggestive of osteomyelitis. Patient with history of a dual-chamber [employer] AICD placed in 2019 in the setting of ischemic cardiomyopathy, left ventricular systolic dysfunction and sustained ventricular tachycardia. Patient is chronically AV paced and have concerns that he is likely pacemaker dependent. * Continue Ancef, repeat blood cultures Admission and Anticipated Discharge Date Admission Date: September 04, 2024 Subjective Patient seen in cardiology follow up. Denies chest pain or shortness of breath. Feels better than yesterday and two days ago. Notes loose stools, diarrhea this am. Telemetry reveals SR with AV sequential pacing in the 50s to 60s, without significant ventricular ectopy. No NSVT observed. Physical Exam Physical Exam: General: no acute distress and stated age Eyes: conjunctiva are pink and non-injected, sclera clear Neck: normal jugular venous pulse, no hepatojugular reflux Chest: normal shape and normal respiratory effort -left infraclavicular AICD pocket clean , dry and intact -No erythema Lungs: clear to auscultation and percussion Cardiac Exam: - regular heart sounds, no murmurs, rubs, or gallops, no jugular venous distention Abdomen: abdomen soft, non-tender, no abnormal masses and no hepatosplenomegaly Musculoskeletal: no gait disturbance, no weakness Extremities: no edema and no cyanosis Wound of lateral portion of left foot : Nichols catheter in place draining clear yellow urine Neuro:awake, conversant, follows commands, no focal motor deficits Psych: appropriate affect and insight. Results & Data Vital Signs (Past 12 Hours) Vital Signs Temp Pulse Resp BP Pulse Ox O2 Del Method 09/06/24 08:30 110/65 09/06/24 08:00 36.8 C 09/06/24 08:00 Room Air 09/06/24 07:36 66 19 96 09/06/24 07:03 65 23 95 09/06/24 07:00 120/72 09/06/24 07:00 120/72 09/06/24 07:00 120/72 09/06/24 04:00 99/61 L 09/06/24 04:00 99/61 L 09/06/24 03:48 52 L 18 93 09/06/24 03:30 97/60 L 09/06/24 03:30 97/60 L 09/06/24 03:27 57 L 18 93 09/06/24 03:06 70 21 92 09/06/24 02:36 70 19 93 09/06/24 02:06 67 18 92 09/06/24 02:00 90/55 L 09/06/24 01:57 70 18 94 09/06/24 01:30 59 L 18 92 09/06/24 01:30 95/56 L 09/06/24 01:12 70 22 93 09/06/24 01:00 100/59 L 09/06/24 00:57 70 20 93 09/06/24 00:33 70 19 93 09/06/24 00:30 96/51 L 09/06/24 00:27 70 26 H 93 09/06/24 00:15 69 19 93 09/05/24 23:45 70 21 91 09/05/24 23:30 93/56 L 09/05/24 23:30 93/56 L 09/05/24 23:21 70 17 94 09/05/24 23:03 69 20 94 09/05/24 23:00 95/53 L 09/05/24 22:45 70 20 95 09/05/24 22:31 90/58 L 09/05/24 22:31 90/58 L 09/05/24 22:31 90/58 L 09/05/24 22:30 70 21 89 L Laboratory Results Cardiac Enzymes 09/06/24 Range/Units 04:16 AST 333 H (13-39) U/L Coagulation 09/06/24 Range/Units 04:16 PT 16.2 H (9.0-12.0) Seconds CBC 09/05/24 09/06/24 Range/Units 11:56 04:16 WBC 6.26 6.79 (4.8-10.8) K/ul RBC 3.14 L 3.31 L (4.70-6.10) M/uL Hgb 8.2 L 8.7 L (14.0-18.0) g/dl Hct 24.5 L 25.4 L (42.0-52.0) % Plt Count 72 L 104 L (130-400) K/uL Neut # (Auto) 5.39 5.65 (1.40-6.50) K/uL Lymph # (Auto) 0.41 L 0.40 L (1.20-3.40) K/uL Wilbarger # (Auto) 0.34 0.38 (0.11-0.59) K/uL Eos # (Auto) 0.01 0.29 (0.00-0.50) K/uL Baso # (Auto) 0.01 0.02 (0.00-0.20) K/uL Comprehensive Metabolic Panel 09/05/24 09/06/24 Range/Units 15:49 04:16 Sodium 134 L 132 L (136-145) mmol/L Potassium 4.3 4.2 (3.5-5.1) mmol/L Chloride 102 101 (98-107) mmol/L Carbon Dioxide 24 24 (21-32) mmol/L BUN 58 H 62 H (6-23) mg/dl Creatinine 3.13 H 3.04 H (0.6-1.4) mg/dl Glucose 122 H 161 H (70-99(Fasting)) mg/dl Calcium 8.0 L 8.2 L (8.6-10.3) mg/dl AST 333 H (13-39) U/L ALT 313 H (7-52) U/L Alkaline Phosphatase 119 H (34-104) U/L Total Protein 5.1 L (6.0-8.3) gm/dl Albumin 2.7 L (3.4-5.0) gm/dl Intake and Output 09/05/24 09/06/24 09/06/24 22:59 06:59 14:59 Intake Total 198.348 / 806.101 357.753 / 806.101 250 / 250 Output Total 277 / 805 103 / 805 Balance -78.652 / 1.101 254.753 / 1.101 250 / 250 Intake: IV 18.348 / 446.101 177.753 / 446.101 Norepinephrine/D5w 4 mg In 250 18.348 / 196.101 177.753 / 196.101 ml @ 0.05 MCG/KG/MIN 18.206 mls /hr IV .[id number] [facility] Rx#: [id number] Oral 180 / 360 180 / 360 250 / 250 Output: Urine 0 / 0 Urine Amount (Catheter) 275 / 800 100 / 800 Nichols/Indwelling 275 / 800 100 / 800 # Bowel Movements 2 / 5 3 / 5 Other: Weight 98.1 kg Weight Measurement Method Built in [facility] Diagnostic Findings Summary of radiology report of liver US, 09/06/24: 1. Enlarged liver (LS=19.47cm), with coarse texture, periportal tract thickening, and irregular borders, suggesting hepatic chronic parenchymal liver disease/ Cirrhosis, advised for lab correlation. 2. Moderate free perihepatic fluid collection. 3. Right pleural effusion. 4. Gall bladder stone, with circumferential gall bladder wall thickening, due to either wall edema secondary to ascites or chronic calcular cholecystitis. 5. No interval changes.
--- NOTE | 2024-09-06 10:56 | Critical Care Progress Note ---
Date of Service September 06, 2024 Assessment & Plan (1) Acute lactic acidosis: (2) Sepsis: (3) Elevated brain natriuretic peptide (BNP) level: (4) VENITA (acute kidney injury): (5) Hepatopathy: (6) Chronic anticoagulation: (7) Ascites: (8) Acute systolic heart failure: (9) Streptococcemia: (10) Anemia: (11) Thrombocytopenia: Plan Lactic acidosis resolved. Blood cultures are positive for streptococcal species. Possible source being left foot ulcer. No signs of osteomyelitis on exam or on x-ray. Repeat blood cultures today. Antibiotics de-escalated to Ancef. Possible sources or extremity ulcer. Urinalysis was not suggestive of UTI. Chest imaging was not overtly suggestive of pneumonia. Radiology did note mild heterogeneous opacification of the left lower lobe which I suspect is atelectasis. Patient saturating well on room air and without productive cough or pneumonia symptoms. 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 BNP also significantly elevated. Continue low-dose Levophed infusion to help perfuse kidneys, augment cardiac output and maintain maps above 65 mmHg. Acute hepatitis panel pending. LFTs trending downwards likely due to resolving shock liver and congestive hepatopathy. Continue to monitor urine output closely. Can consider diuresis later in the day if he develops hypoxemia or decreased urine output. Appreciate cardiology and nephrology input. Anemia and thrombocytopenia improving as sepsis is resolving. Anticoagulation remains on hold. Plavix restarted due to history of cardiac disease and stroke. Holding Casodex in the setting of acute illness. Continue home levothyroxine dose. Check TSH today. Continue ICU monitoring. Admission and Anticipated Discharge Date Admission Date: September 04, 2024 Subjective Patient requiring low-dose Levophed overnight and this morning. Urine output remains stable. Creatinine has stabilized as well. No chest pain or shortness of breath at present. Review of Systems Review of Systems: All systems reviewed & are unremarkable except as noted in HPI & below Physical Exam Physical Exam: Constitutional: Patient appears to be of their stated age. Patient is in no apparent distress. Patient is well-developed. Eyes: Pupils are equal round and reactive to light. Conjunctivae are normal. Anicteric sclera. Ears nose, mouth and throat: Mallampati class 2. Normal posterior oropharynx. Uvula is midline. BiPAP mask in place. Neck: Trachea is midline. Visual inspection is normal. Respiratory: Clear to auscultation bilaterally. No use of accessory muscles. No significant clubbing noted. Mildly tachypneic. Cardiovascular: Regular rate and rhythm. No murmurs. 3+ edema in the lower extremities bilaterally. Mild fluid wave on abdomen exam. Gastrointestinal: Normal bowel sounds, soft, nontender and nondistended. No hepatosplenomegaly noted. Musculoskeletal: No cyanosis. Patient is able to move all extremities. Strength is 5 out of 5 in the upper and lower extremities. Skin: No rashes, warm dry and intact. Neurologic: No obvious focal neurological deficits seen. Psychiatric: Alert and oriented x3 with a euthymic affect. Results & Data Results & Data Vital Signs (Past 12 Hours) Vital Signs Temp Pulse Resp BP Pulse Ox O2 Del Method 09/06/24 08:30 110/65 09/06/24 08:00 36.8 C 09/06/24 08:00 Room Air 09/06/24 07:36 66 19 96 09/06/24 07:03 65 23 95 09/06/24 07:00 120/72 09/06/24 07:00 120/72 09/06/24 07:00 120/72 09/06/24 04:00 99/61 L 09/06/24 04:00 99/61 L 09/06/24 03:48 52 L 18 93 09/06/24 03:30 97/60 L 09/06/24 03:30 97/60 L 09/06/24 03:27 57 L 18 93 09/06/24 03:06 70 21 92 09/06/24 02:36 70 19 93 09/06/24 02:06 67 18 92 09/06/24 02:00 90/55 L 09/06/24 01:57 70 18 94 09/06/24 01:30 59 L 18 92 09/06/24 01:30 95/56 L 09/06/24 01:12 70 22 93 09/06/24 01:00 100/59 L 09/06/24 00:57 70 20 93 09/06/24 00:33 70 19 93 09/06/24 00:30 96/51 L 09/06/24 00:27 70 26 H 93 09/06/24 00:15 69 19 93 09/05/24 23:45 70 21 91 09/05/24 23:30 93/56 L 09/05/24 23:30 93/56 L 09/05/24 23:21 70 17 94 09/05/24 23:03 69 20 94 09/05/24 23:00 95/53 L Coding Level of Care Code 48564 SUB INP/OBS CARE 2/35MIN Diagnoses Acute lactic acidosis E87.21 Sepsis A41.9 Elevated brain natriuretic peptide (BNP) level R79.89 VENITA (acute kidney injury) N17.9 Hepatopathy K76.9 Chronic anticoagulation Z79.01 Ascites R18.8 Acute systolic heart failure I50.21 Streptococcemia A40.9 Anemia D64.9 Thrombocytopenia D69.6
[2024-09-06 11:31] LABS: Thyroid Stimulating Hormone 5.14 uIu/ml (0.300-4.500)
[2024-09-06 12:07] LABS: T4 Free Thyroxine 1.36 ng/dl (0.61-1.60)
--- NOTE | 2024-09-06 12:56 | Nephrology Progress Note ---
Date of Service September 06, 2024 Assessment & Plan (1) Acute kidney injury superimposed on stage 3b chronic kidney disease: Plan: plateau'd Stage 3 oliguric VENITA on CKD 3 (CKD 3 neither A nor B) based on UOP at admission; creatinine 2.9 on admission and essentially plateau'd, not unexpected in the setting of sepsis and HF. he had 25 mL UOP 6064-3495; then 50 mL next 2 hrs; then 250 mL [id number]. life threatening multiorgan failure on presentation w/ respiratory, cardiac, renal, liver failure >> ischemic ATN whether from septicemia or cardiorenal w/ acute systolic heart failure. baseline creatinine about 1.6-1.7 w/ 143 mg/gm albuminuria. -would give neither fluid nor diuretics at this point but likely to need diuretics soon >> for now give more time for infection to stabilize; consider lasix trial versus dopamine/lasix >> w/ AR hx /meds too risk for dopa now -concern that large volume paracentesis will worsen renal failure and that he may not tolerate albumin for this procedure > appreciate discussion w/ team -strict I/O -continue BP support to goal MAP 65 or better > continue pressors as needed -daily BMP -no current indication for renal replacement therapy >would keep swenson one day more at least Care coordinated w/ Maci Pierson and Ernestina and Omari via T Text regarding renal failure etiology, next steps on diuretics/ pressors and follow up labs, concerns re paracentesis; we are in agreement. (2) Acute exacerbation of CHF (congestive heart failure): Plan: combined and severe systolic/diastolic HF w/ EF 30-35% per OP cardiology notes fall 2023. f/u TTE today slightly worse than that baseline -monitor for opportunity to start gentle diuretics later today -f/u cardiology recs -accompanied by congestive hepatopathy (slightly improved today) (3) Streptococcemia: Plan: 11/24 blood cultures 09/04 w/ Strep agalactiae; 09/06 repeat cxs pending. cefepime > cefazolin suspect soft tissue etiology; not urine Admission and Anticipated Discharge Date Admission Date: September 04, 2024 Subjective seen on mid AM rounds at about 1030; feels improved today; denies sob, denies pain abd or chest; no palpitations; has multiple loose BM after yesterday's constipation. needed to go back on levo last evening d/t lower BP; currently on 0.05 mcg/kg/min Review of Systems 2 Review of Systems: All systems reviewed & are unremarkable except as noted in Subjective Physical Exam 2 Constitutional: well developed, well nourished, average body habitus and cooperative; no acute distress Eyes: EOM intact bilaterally ENMT: Mouth: + dry oral mucous membranes Respiratory: normal respiratory effort, able to speak in complete sentences and + tachypneic; no respiratory distress, no cough, expiratory phase not prolonged and no paradoxical thoraco-abdominal movemnt Auscultation: + diminished lung sounds and + crackles (fine bibasilar) Cardiovascular: Heart Sounds: + murmur Extremities: + edema (1-2+ dependent, not peripheral) irregular rhythm Gastrointestinal (Abdomen): Inspection/Auscultation: normal bowel sounds P ercussion/Palpation: abdomen soft, + ascites and + fluid wave; abdomen nontender Musculoskeletal: Extremities: strength 5/5 throughout Skin: no rashes, warm and dry (L foot not examined) Results & Data Vital Signs (Past 12 Hours) Vital Signs Temp Pulse Resp BP Pulse Ox O2 Del Method 09/06/24 08:30 110/65 09/06/24 08:00 36.8 C 09/06/24 08:00 Room Air 09/06/24 07:36 66 19 96 09/06/24 07:03 65 23 95 09/06/24 07:00 120/72 09/06/24 07:00 120/72 09/06/24 07:00 120/72 09/06/24 04:00 99/61 L 09/06/24 04:00 99/61 L 09/06/24 03:48 52 L 18 93 09/06/24 03:30 97/60 L 09/06/24 03:30 97/60 L 09/06/24 03:27 57 L 18 93 09/06/24 03:06 70 21 92 09/06/24 02:36 70 19 93 09/06/24 02:06 67 18 92 09/06/24 02:00 90/55 L 09/06/24 01:57 70 18 94 09/06/24 01:30 59 L 18 92 09/06/24 01:30 95/56 L 09/06/24 01:12 70 22 93 09/06/24 01:00 100/59 L 09/06/24 00:57 70 20 93 Laboratory Results 09/06/24 04:16 09/06/24 04:16 3+ protienuria, 1+ bilirubin else bland admission UA (2) Acute exacerbation of CHF (congestive heart failure) Heart failure type: systolic Qualified Code(s): I50.23 - Acute on chronic systolic (congestive) heart failure
[2024-09-06 14:07] LABS: Hepatitis A Antibody IgM NON-REACTIVE (NON-REACTIVE); Hepatitis B Core Antibody IgM NON-REACTIVE (NON-REACTIVE)
[2024-09-06] MEDS: FUROSEMIDE 40 MG/4 ML VIAL IV ONE (14:09)
--- NOTE | 2024-09-06 14:13 | Hospitalist Progress Note ---
Date of Service September 06, 2024 Assessment & Plan (1) Acute lactic acidosis: (2) Acute hypoxemic respiratory failure: (3) Elevated brain natriuretic peptide (BNP) level: (4) Acute kidney injury superimposed on stage 3b chronic kidney disease: (5) Elevated liver function tests: (6) Elevated troponin level: (7) Hyperkalemia: Plan Junior Garcia is an 84-year-old male past medical history of DM type II, diabetic neuropathy, diabetic peripheral angiopathy, gouty arthropathy, hypothyroidism, BHUPINDER/nocturnal hypoxemia intolerant to CPAP, CKD stage IIIb, HTN, HLD, left arm DVT in 2017, paroxysmal atrial fibrillation anticoagulated with Eliquis, ventricular tachycardia s/p pacer-defibrillator placement in 2018, CAD s/p CABG x 3 in 2015, ischemic cardiomyopathy, systolic CHF, peripheral artery disease, left vertebral artery stenosis, atrial septal aneurysm, prostate cancer [currently receiving radiation + Casodex + Firmagon], 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 Sepsis Strep Bacteremia Possible Pneumonia Foot wound Acute metabolic Encephalopathy patient presented unresponsive and confused lactic acidosis noted, Procalcitonin elevated at 1.93 MRSA nares negative Respiratory bio fire panel negative UA unremarkable, no reflex urine culture Blood cultures 4 out of 4 bottles currently growing group B strep agalactiae chest x-ray noting cardiomegaly with pulmonary edema and small pleural effusions CT chest concerning for pneumonia CT abdomen pelvis concerning for cystitis Patient with left foot wound On IV Ancef at this time Repeat blood cultures in 48 hours- pending now ID consult- awaiting No more confusion, does not have any fever and/or chills and the white count is normalized Continue with current antibiotic of cefazolin twice daily Acute hypoxic respiratory failure Possible pneumonia Pulmonary edema Pleural Effusions patient initially requiring oxygen supplementation X-ray and CT concerning for fluid overload Respiratory bio fire negative as noted above VBG noting pH of 7.34, pCO2 of 33 and bicarb of [address] was concerning for pneumonia Was initially on cefepime and Flagyl, transition to Ancef currently Patient currently on room air and improved Has been getting Levophed to maintain blood pressure and Lasix to continue diuresis as per the biomedical engineering aide and the director of cath lab Acute Kidney Injury on CKD Creatinine baseline of 1.4-1.6 Creatinine has been trending up to 3.14 Nephrology consulted, appreciate recs Avoid nephrotoxic medications when able Monitor renal function closely Transaminitis Ascites Liver enzymes significantly elevated likely secondary to hypotension with shock liverer Ultrasound revealed enlarged liver at 19.47 cm with coarse texture and thickening of KANIKA portal tract suggestive of cirrhosis GI consulted, appreciate recs Continue to monitor LFTs CT abdomen pelvis noting unremarkable liver Hepatitis panel ordered in the ICU- pending for now Continue to monitor LFTs- Demand ischemia Acute on Chronic Systolic and Diastolic Congestive Heart Failure Trops elevated but flat in the 30-40 range EKG ruled out for acute ischemia by interventional cardiology Echo with noted EF of 25 to 29%, diastolic grade 3 dysfunction septal wall abnormalities posterior wall akinetic with hypokinesis of the inferior wall, left atrium severely dilated, moderate MR, moderate TR and mildly elevated pulmonary artery systolic pressure Chest imaging concerning for cardiomegaly with pulmonary edema and small pleural effusions. Noted large volume ascites and anasarca Has been getting diuresis with Levophed on board to maintain blood pressure Cardiology consulted, appreciate further recs LFTs are improving gradually Atrial fibrillation Holding Eliquis for now Hold metoprolol succinate in setting of hypotension and sepsis Amiodarone also on hold Resume both as able Hyperkalemia K+ 5.7 on initial laboratory evaluation Treated with calcium gluconate/insulin in ED Continue to monitor and manage PRN Anemia Thrombocytopenia Hemoglobin and platelet levels noted to be low Holding home Eliquis Continue home Plavix Hypothyroidism continue levothyroxine. CAD/HLD Continue statin, Plavix Prostate Cancer Follows with Dr. Alejandro [[facility]] Currently undergoing radiation w/ [facility] + chemotherapy Continue Casodex DVT Prophylaxis: SCDs/TEDs for now. Code Status: DNR/DNI - No Resuscitation PCP: Sandra Judge MD Disposition: PT/OT for further recs once medically stable Admission and Anticipated Discharge Date Admission Date: September 04, 2024 Subjective 09-06 The patient was seen and examined in ICU He has been feeling worse today with more weakness and tiredness Denies any chest or abdominal pain and no nausea and or vomiting No fever and/or chills Review of Systems Review of Systems: All systems reviewed and are unremarkable except as noted below Physical Exam Physical Exam: Lying in bed without any acute distress Constitutional: well developed, well nourished, + ill appearing and + obese Eyes: PERRL, conjunctivae normal, anicteric sclerae ENMT: external ear and nose normal, oropharynx normal Neck: trachea midline, no thyromegaly Respiratory: no respiratory distress Auscultation: lungs clear to auscultation bilaterally Cardiovascular: Rate/Rhythm: regular rate and regular rhythm; not tachycardic Heart Sounds: normal S1 and normal S2; no murmur Extremities: + edema ( trace edema bilaterally) Gastrointestinal (Abdomen): Inspection/Auscultation: normal bowel sounds; abdomen not distended Percussion/Palpation: abdomen soft; abdomen nontender Musculoskeletal: No acute arthritis involving any of the joint Neurologic: normal touch/pain/proprioception and moves all extremities; no focal motor deficits Lymphatic: no cervical or axillary lymphadenopathy Results & Data Results & Data Vital Signs (Past 12 Hours) Vital Signs Temp Pulse Resp BP Pulse Ox O2 Del Method 09/06/24 08:30 110/65 09/06/24 08:00 36.8 C 09/06/24 08:00 Room Air 09/06/24 07:36 66 19 96 09/06/24 07:03 65 23 95 09/06/24 07:00 120/72 09/06/24 07:00 120/72 09/06/24 07:00 120/72 09/06/24 04:00 99/61 L 09/06/24 04:00 99/61 L 09/06/24 03:48 52 L 18 93 09/06/24 03:30 97/60 L 09/06/24 03:30 97/60 L 09/06/24 03:27 57 L 18 93 09/06/24 03:06 70 21 92 09/06/24 02:36 70 19 93 09/06/24 02:06 67 18 92 09/06/24 02:00 90/55 L 09/06/24 01:57 70 18 94 Laboratory Results Short CBC 09/06/24 Range/Units 04:16 WBC 6.79 (4.8-10.8) K/ul Hgb 8.7 L (14.0-18.0) g/dl Hct 25.4 L (42.0-52.0) % Plt Count 104 L (130-400) K/uL BMP 09/05/24 09/06/24 15:49 04:16 Sodium 134 L 132 L Potassium 4.3 4.2 Chloride 102 101 Carbon Dioxide 24 24 BUN 58 H 62 H Creatinine 3.13 H 3.04 H Glucose 122 H 161 H Calcium 8.0 L 8.2 L Liver Function 09/06/24 Range/Units 04:16 Total Bilirubin 2.2 H (0.2-1.0) mg/dl AST 333 H (13-39) U/L ALT 313 H (7-52) U/L Alkaline Phosphatase 119 H (34-104) U/L Albumin 2.7 L (3.4-5.0) gm/dl Medications Administered Current Inpatient Medications Bicalutamide (Bicalutamide 50 Mg Tab) 50 mg PO DAILY MELANI Stop: 10/05/24 08:59 Last Admin: 09/06/24 08:06 Dose: 50 mg Clopidogrel Bisulfate (Clopidogrel Bisulfate 75 Mg Tab) 75 mg PO DAILY MELANI Stop: 10/05/24 08:59 Last Admin: 09/06/24 08:07 Dose: 75 mg Dextrose (Dextrose 50% 50 Ml Syringe) 25 - 50 ml IV UD PRN; Protocol PRN Reason: Hypoglycemia Protocol Stop: 10/06/24 07:01 Glucagon (Glucagon For Inj 1 Mg Vial) 1 mg SQ UD PRN; Protocol PRN Reason: Hypoglycemia Protocol Stop: 10/06/24 07:01 Glucose (Glucose 40% Gel 15 Gm Tube) 15 - 30 gm PO UD PRN; Protocol PRN Reason: Hypoglycemia Protocol Stop: 10/06/24 07:01 Glucose (Glucose 10 Tab/Tube) 4 - 8 tab PO UD PRN; Protocol PRN Reason: Hypoglycemia Protocol Stop: 10/06/24 07:01 Cefazolin Sodium (Ancef 2000mg) 2,000 mg in 15 mls @ 3.75 mls/min IV Q12 MELANI; Protocol Stop: 09/19/24 17:59 Last Admin: 09/06/24 08:12 Dose: 3.75 mls/min Norepinephrine Bitartrate (Levophed/D5w) 4 mg in 250 mls @ 18.206 mls/hr IV .[id number] MELANI; Protocol Stop: 10/05/24 19:14 Last Titration: 09/06/24 06:55 Dose: 0.05 mcg/kg/min, 18.2 mls/hr Insulin Aspart (Insulin Aspart Per Unit Charge) 0 units SC ACHS [facility] Stop: 10/06/24 07:29 Last Admin: 09/06/24 11:45 Dose: 11 units Levothyroxine Sodium (Levothyroxine Sodium 112 Mcg Tablet) 112 mcg PO DAILYBB [facility] Stop: 10/05/24 06:29 Last Admin: 09/06/24 06:57 Dose: 112 mcg Miscellaneous (Carbohydrates For Hypoglycemia ) 15 - 30 gm PO UD PRN PRN Reason: Hypoglycemia Protocol Stop: 10/06/24 07:01 Polyethylene Glycol (Polyethylene (Miralax) 17 Gm Pack) 17 gm PO DAILY PRN PRN Reason: CONSTIPATION Stop: 10/05/24 10:19 Tamsulosin HCl (Tamsulosin Hcl 0.4 Mg Cap) 0.4 mg PO DAILY [facility] Stop: 10/05/24 08:59 Last Admin: 09/05/24 08:51 Dose: Not Given
[2024-09-06 15:05] LABS: Cdiff Antigen Positive; Cdiff Toxin A+B Negative Cdiff Toxin (Negative); Cdiff Toxin B Gene (2yr or >) Positive Cdiff Gene (Neg)
--- NOTE | 2024-09-06 17:09 | Electrocardiogram Report ---
Test Reason : Blood Pressure : */* mmHG Vent. Rate : 70 BPM Atrial Rate : 70 BPM P-R Int : 198 ms QRS Dur : 162 ms QT Int : 592 ms P-R-T Axes : * 240 104 degrees QTcB Int : 639 ms AV dual-paced rhythm Abnormal ECG When compared with ECG of 04-Sep-2024 14:32, No significant change Confirmed by Geraldo Lawson ([id number]) on 09/06/2024 5:08:50 PM Referred By: REFERRED SELF Confirmed By: Geraldo Lawson
[2024-09-06] MEDS: FIDAXOMICIN 200 MG TAB PO ONE (17:14)
[2024-09-06 20:02] LABS: BUN Creatinine Ratio 20.1 (10-20); Calcium 7.9 mg/dl (8.6-10.3); Potassium 3.8 mmol/L (3.5-5.1)
[2024-09-06] MEDS: FUROSEMIDE 40 MG/4 ML VIAL IV SCH (20:51)
[2024-09-06] MEDS: FIDAXOMICIN 200 MG TAB PO SCH (22:05)
[2024-09-07 04:34] LABS: Basophils # (auto) 0.01 K/uL (0.00-0.20); Basophils % (auto) 0.2 %; Eosinophils # (auto) 0.38 K/uL (0.00-0.50); Eosinophils % (auto) 6.6 %; Hematocrit (blood only) 23.6 % (42.0-52.0); Hemoglobin 8.1 g/dl (14.0-18.0); Immature Granulocytes # (auto) 0.04 K/uL (0.01-0.20); Immature Granulocytes % (auto) 0.7 %; Lymphocytes # (auto) 0.46 K/uL (1.20-3.40); Lymphocytes % (auto) 7.9 %; Mean Corpuscular Hemoglobin 26.3 pg (25.0-34.0); Mean Corpuscular Hgb Conc 34.3 g/dL (32.0-36.0); Mean Corpuscular Volume 76.6 fL (80.0-100.0); Mean Platelet Volume 11.1 fL (9.4-12.4); Monocytes % (auto) 5.2 %; Neutrophils % (auto) 79.4 %; Platelet Count 106 K/uL (130-400); RDW Coefficient of Variation 22.2 % (11.5-14.5); RDW Standard Deviation 60.8 fL (36.4-46.3); Red Blood Count 3.08 M/uL (4.70-6.10); White Blood Count 5.79 K/ul (4.8-10.8)
[2024-09-07 04:51] LABS: Albumin Globulin Ratio 1.3 (0.9-2); Albumin Level 2.8 gm/dl (3.4-5.0); BUN Creatinine Ratio 20.6 (10-20); Bilirubin,Total 1.5 mg/dl (0.2-1.0); Calcium 8.1 mg/dl (8.6-10.3); Creatinine Clr Calc Pharmacy 22.3 ml/min; Globulin 2.2 gm/dl (2.5-4.0); Magnesium 1.9 mg/dl (1.7-2.4); Potassium 3.8 mmol/L (3.5-5.1)
[2024-09-07 04:56] LABS: Anisocytosis Present; Polychromasia 1+; Target Cells 1+
[2024-09-07 06:40] LABS: Hypochromasia Present; Microcytosis Present
--- NOTE | 2024-09-07 09:36 | Critical Care Progress Note ---
Date of Service September 07, 2024 Assessment & Plan (1) Acute lactic acidosis: (2) Sepsis: (3) Elevated brain natriuretic peptide (BNP) level: (4) VENITA (acute kidney injury): (5) Hepatopathy: (6) Chronic anticoagulation: (7) Ascites: (8) Acute systolic heart failure: (9) Streptococcemia: (10) Anemia: (11) Thrombocytopenia: (12) Diarrhea: Plan Lactic acidosis resolved. Blood cultures from 09/04/24 positive for Strep agalactiae (GBS), pending repeat blood cultures from 09/06/24. Possible source being left foot ulcer. No signs of osteomyelitis on exam or on x-ray. Antibiotics de-escalated to Ancef. Possible sources or extremity ulcer. Urinalysis was not suggestive of UTI. Chest imaging was not overtly suggestive of pneumonia. Radiology did note mild heterogeneous opacification of the left lower lobe which I suspect is atelectasis. Patient saturating well on room air and without productive cough or pneumonia symptoms. Cardiology planning for JOSE tomorrow 09/08/24, patient NPO at midnight. 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 BNP also significantly elevated. Continue low-dose Levophed infusion to help perfuse kidneys, augment cardiac output and maintain maps above 65 mmHg. Consider weaning after current infusion. Acute hepatitis panel pending. LFTs trending downwards likely due to resolving shock liver and congestive hepatopathy. Continue to monitor urine output closely. Lasix 30mg BID IV started yesterday 09/06/24 with good urine output. Appreciate cardiology and nephrology input. Anemia and thrombocytopenia improving as sepsis is resolving, small dip in Hgb 8.7 -> 8.1 but asymptomatic and no obvious bleeding. Plan to resume anticoagulation after JOSE procedure tomorrow . Continue Plavix due to history of cardiac disease and stroke. Diarrhea with C. diff gene positive toxin negative. Continue on fidaxomicin for now. Holding Casodex in the setting of acute illness. Continue home levothyroxine dose. TSH 5.14, fT4 WNL. Continue ICU monitoring. Admission and Anticipated Discharge Date Admission Date: September 04, 2024 Supervising Physician Co-Signing Physician Notes Patient seen and examined with the resident as noted above. Agree with the plan aside for any additions/exceptions noted: Patient has been off of Levophed since about 2 PM and has been diuresing well. No major complaints overnight. Will likely be able to downgrade out of the later today or tomorrow to PCU status. Subjective Tarun is feeling well this morning, states he didn't sleep great but as well as he could in the ICU. Denies any current SOB, chest pain, or any other pain at this time, only concern is that his feet are cold since they have been out of the blanket. Denies any abdominal pain at this time, still having some diarrhea but notes he is able to let nursing know to get the bedpan in time. Endorses his appetite is less than usual, but he is still eating and drinking. States his L lateral foot wound is a bit sore, covered by padded bandage and healing well. Patient continuing low-dose Levophed overnight and this morning. Receiving Lasix 30mg BID. Urine output remains stable. Creatinine continuing to stabilize as well. Denies any fevers, body aches, chills, sweats, headaches, vision changes, neck pain, cough, SOB, abdominal pain, constipation, pain in extremities. Review of Systems Review of Systems: per HPI and exam Physical Exam Physical Exam: Constitutional: A&Ox3, patient is in no apparent distress. Appears stated age and is well-developed. Eyes: PERRL b/l, conjunctivae are normal. Anicteric sclerae. Ears nose, mouth and throat: Mallampati class 2. Normal posterior oropharynx. Uvula is midline. Neck: Trachea is midline. Mild JVD, otherwise visual inspection is normal. Respiratory: Clear to auscultation b/l, slightly reduced air movement b/l. No use of accessory muscles. No significant clubbing noted. Mildly tachypneic, satting 95% and above on room air. Cardiovascular: Regular rate and rhythm, paced. Mild systolic murmur heard best in tricuspid and mitral valve areas. 1+ edema in the lower extremities bilaterally. Mild fluid wave on abdomen exam. Gastrointestinal: Normal bowel sounds, soft, nontender and nondistended. No hepatosplenomegaly noted. Musculoskeletal: No cyanosis. Patient is able to move all extremities. Strength is 5/5 in the upper and lower extremities. Skin: L lateral distal foot: healing 1x3cm wound, tender to palpation but no erythema, swelling, or warmth, no oozing of blood or other fluid. - Sacrum: covered with pad, mildly eryth ematous skin but no noticeable wound or breaks in skin. Otherwise no rashes, skin warm dry and intact. Neurologic: endorses some decrease in sensation in b/l LE in distal feet (not new), otherwise no obvious focal neurological deficits seen. Psychiatric: Alert and oriented x3 with a euthymic affect, mood-affect congruence. Results & Data Results & Data Vital Signs (Past 12 Hours) Vital Signs Temp Pulse Pulse Resp BP BP Pulse Ox 09/07/24 09:00 70 19 95 09/07/24 08:45 103/57 L 09/07/24 08:45 70 20 95 09/07/24 08:33 70 19 95 09/07/24 08:30 98/47 L 09/07/24 08:30 98/47 L 09/07/24 08:22 84/45 L 09/07/24 08:18 70 26 H 93 09/07/24 08:15 70 23 94 09/07/24 08:15 89/49 L 09/07/24 08:06 70 23 96 09/07/24 08:00 97/54 L 09/07/24 07:57 70 17 94 09/07/24 07:48 70 16 94 09/07/24 07:45 97/59 L 09/07/24 07:30 71 19 94 09/07/24 07:30 09/07/24 07:27 70 16 95 09/07/24 07:09 70 09/07/24 07:00 36.6 C 09/07/24 07:00 102/63 09/07/24 06:48 70 17 95 09/07/24 06:30 103/67 09/07/24 06:21 69 18 94 09/07/24 06:15 57 L 18 94 09/07/24 06:00 36.5 C 70 15 103/60 95 09/07/24 05:45 70 16 95 09/07/24 05:30 54 L 18 92 09/07/24 05:00 71 23 92 09/07/24 04:45 71 18 95 09/07/24 04:36 70 13 93 09/07/24 04:34 102/53 L 09/07/24 04:34 102/53 L 09/07/24 04:34 102/53 L 09/07/24 04:24 56 L 30 H 92 09/07/24 04:12 70 23 93 09/07/24 04:00 100/52 L 09/07/24 03:39 36.5 C 70 22 94 09/07/24 03:30 99/58 L 09/07/24 03:30 99/58 L 09/07/24 03:30 56 L 21 93 09/07/24 03:15 70 23 91 09/07/24 03:00 103/62 09/07/24 02:39 54 L 18 94 09/07/24 02:30 97/57 L 09/07/24 02:09 61 20 94 09/07/24 02:00 105/58 L 09/07/24 02:00 105/58 L 09/07/24 02:00 105/58 L 09/07/24 01:57 62 30 H 93 09/07/24 01:51 56 L 17 92 09/07/24 01:36 64 18 92 09/07/24 01:15 71 18 91 09/07/24 01:09 57 L 6 L 91 09/07/24 00:45 71 11 L 94 09/07/24 00:36 71 19 94 09/07/24 00:30 97/55 L 09/07/24 00:30 97/55 L 09/07/24 00:27 63 24 94 09/07/24 00:21 56 L 23 93 09/07/24 00:00 96/55 L 09/07/24 00:00 96/55 L 09/07/24 00:00 36.5 C 54 L 19 93 09/06/24 23:51 56 L 09/06/24 23:45 56 L 23 95 09/06/24 23:33 55 L 16 96 09/06/24 23:30 98/55 L 09/06/24 23:30 98/55 L 09/06/24 23:21 65 21 94 09/06/24 23:18 71 22 98 09/06/24 23:06 56 L 19 95 09/06/24 22:51 70 19 96 09/06/24 22:33 71 23 97 09/06/24 22:30 90/46 L 09/06/24 22:30 90/46 L 09/06/24 22:21 61 31 H 95 09/06/24 22:00 105/56 L 09/06/24 22:00 70 20 105/56 L 95 09/06/24 21:57 58 L 19 95 09/06/24 21:51 71 32 H O2 Del Method 09/07/24 09:00 Room Air 09/07/24 08:45 09/07/24 08:45 09/07/24 08:33 09/07/24 08:30 09/07/24 08:30 09/07/24 08:22 09/07/24 08:18 09/07/24 08:15 09/07/24 08:15 09/07/24 08:06 09/07/24 08:00 09/07/24 07:57 09/07/24 07:48 09/07/24 07:45 09/07/24 07:30 09/07/24 07:30 Room Air 09/07/24 07:27 09/07/24 07:09 09/07/24 07:00 09/07/24 07:00 09/07/24 06:48 Room Air 09/07/24 06:30 09/07/24 06:21 09/07/24 06:15 09/07/24 06:00 Room Air 09/07/24 05:45 09/07/24 05:30 09/07/24 05:00 09/07/24 04:45 09/07/24 04:36 09/07/24 04:34 09/07/24 04:34 09/07/24 04:34 09/07/24 04:24 09/07/24 04:12 09/07/24 04:00 09/07/24 03:39 Room Air 09/07/24 03:30 09/07/24 03:30 09/07/24 03:30 09/07/24 03:15 09/07/24 03:00 09/07/24 02:39 09/07/24 02:30 09/07/24 02:09 09/07/24 02:00 09/07/24 02:00 09/07/24 02:00 09/07/24 01:57 09/07/24 01:51 09/07/24 01:36 09/07/24 01:15 09/07/24 01:09 09/07/24 00:45 09/07/24 00:36 09/07/24 00:30 09/07/24 00:30 09/07/24 00:27 Room Air 09/07/24 00:21 09/07/24 00:00 09/07/24 00:00 09/07/24 00:00 Room Air 09/06/24 23:51 09/06/24 23:45 09/06/24 23:33 09/06/24 23:30 09/06/24 23:30 09/06/24 23:21 09/06/24 23:18 09/06/24 23:06 09/06/24 22:51 09/06/24 22:33 09/06/24 22:30 09/06/24 22:30 09/06/24 22:21 09/06/24 22:00 09/06/24 22:00 Room Air 09/06/24 21:57 09/06/24 21:51 Laboratory Results Abnormal lab results 09/06/24 09/06/24 09/06/24 Range/Units 04:16 09:50 11:21 RBC (4.70-6.10) M/uL Hgb (14.0-18.0) g/dl Hct (42.0-52.0) % MCV (80.0-100.0) fL RDW Std Deviation (36.4-46.3) fL RDW Coeff of Perez (11.5-14.5) % Plt Count (130-400) K/uL Lymph # (Auto) (1.20-3.40) K/uL Sodium (136-145) mmol/L BUN (6-23) mg/dl Creatinine (0.6-1.4) mg/dl BUN/Creatinine Ratio (10-20) Glucose (70-99(Fasting)) mg/dl POC Glucose 244 H (70-99) mg/dl Calcium (8.6-10.3) mg/dl Total Bilirubin (0.2-1.0) mg/dl AST (13-39) U/L ALT (7-52) U/L Alkaline Phosphatase (34-104) U/L Total Protein (6.0-8.3) gm/dl Albumin (3.4-5.0) gm/dl Globulin (2.5-4.0) gm/dl TSH 5.140 H (0.300-4.500) uIu/ml Stl C. diff Tox B Gene Positive Cdiff Gene H (Neg) 09/06/24 09/06/24 09/06/24 Range/Units 16:09 19:31 20:51 RBC (4.70-6.10) M/uL Hgb (14.0-18.0) g/dl Hct (42.0-52.0) % MCV (80.0-100.0) fL RDW Std Deviation (36.4-46.3) fL RDW Coeff of Perez (11.5-14.5) % Plt Count (130-400) K/uL Lymph # (Auto) (1.20-3.40) K/uL Sodium 135 L (136-145) mmol/L BUN 60 H (6-23) mg/dl Creatinine 2.99 H (0.6-1.4) mg/dl BUN/Creatinine Ratio 20.1 H (10-20) Glucose 145 H (70-99(Fasting)) mg/dl POC Glucose 170 H 143 H (70-99) mg/dl Calcium 7.9 L (8.6-10.3) mg/dl Total Bilirubin (0.2-1.0) mg/dl AST (13-39) U/L ALT (7-52) U/L Alkaline Phosphatase (34-104) U/L Total Protein (6.0-8.3) gm/dl Albumin (3.4-5.0) gm/dl Globulin (2.5-4.0) gm/dl TSH (0.300-4.500) uIu/ml Stl C. diff Tox B Gene (Neg) 09/07/24 09/07/24 Range/Units 04:00 07:25 RBC 3.08 L (4.70-6.10) M/uL Hgb 8.1 L (14.0-18.0) g/dl Hct 23.6 L (42.0-52.0) % MCV 76.6 L (80.0-100.0) fL RDW Std Deviation 60.8 H (36.4-46.3) fL RDW Coeff of Perez 22.2 H (11.5-14.5) % Plt Count 106 L (130-400) K/uL Lymph # (Auto) 0.46 L (1.20-3.40) K/uL Sodium 135 L (136-145) mmol/L BUN 60 H (6-23) mg/dl Creatinine 2.91 H (0.6-1.4) mg/dl BUN/Creatinine Ratio 20.6 H (10-20) Glucose 128 H (70-99(Fasting)) mg/dl POC Glucose 129 H (70-99) mg/dl Calcium 8.1 L (8.6-10.3) mg/dl Total Bilirubin 1.5 H (0.2-1.0) mg/dl AST 209 H (13-39) U/L ALT 155 H (7-52) U/L Alkaline Phosphatase 121 H (34-104) U/L Total Protein 5.0 L (6.0-8.3) gm/dl Albumin 2.8 L (3.4-5.0) gm/dl Globulin 2.2 L (2.5-4.0) gm/dl TSH (0.300-4.500) uIu/ml Stl C. diff Tox B Gene (Neg) Resident Activity Tracking Resident Involvement: Resident Care Provided Care Provided: Adult Hospital Medicine (2) Sepsis Sepsis acute organ dysfunction status: with acute organ dysfunction Sepsis type: Streptococcus group B (10) Anemia Anemia type: unspecified type Qualified Code(s): D64.9 - Anemia, unspecified (12) Diarrhea Diarrhea type: unspecified type Qualified Code(s): R19.7 - Diarrhea, unspecified
--- NOTE | 2024-09-07 10:48 | Nephrology Progress Note ---
Date of Service September 07, 2024 Assessment & Plan (1) Acute kidney injury superimposed on stage 3b chronic kidney disease: Plan: plateau'd Stage 3 oliguric VENITA on CKD 3 (CKD 3 neither A nor B) based on UOP at admission; creatinine 2.9 on admission and essentially plateau'd, not unexpected in the setting of sepsis and HF. he had 25 mL UOP [id number]; then 50 mL next 2 hrs; then 250 mL [id number] on first day after admission. life threatening multiorgan failure on presentation w/ respiratory, cardiac, renal, liver failure >> ischemic ATN whether from septicemia or cardiorenal w/ acute systolic heart failure. baseline creatinine about 1.6-1.7 w/ 143 mg/gm albuminuria. creatinine plateau'd; UOP responsive to lasix; still pressor dependent; transaminases slightly better >intensified lasix to 30 mg IV tid timed so as not to disrupt sleep > monitor response >started K 20 mEq bid po -daily bmp to continue -with arrhythmia hx /meds too risk for dopamine -strict I/O -continue BP support to goal MAP 65 or better > pressors as needed -daily BMP -no current indication for renal replacement therapy -consider removing swenson after JOSE done and pressors off Care coordinated w/ Maci Pierson and Ernestina and Omari via T Text regarding diuretic/K dosing, labs and swenson mgt, JOSE plans; we are in agreement. (2) Acute exacerbation of CHF (congestive heart failure): Plan: combined and severe systolic/diastolic HF w/ EF 30-35% per OP cardiology notes fall 2023. f/u TTE today slightly worse than that baseline -09/06 had lasix 40 mg IV x 1 then 30 mg IV bid x 2 doses so far; he is negative for first time this admission > 2L w/ this -f/u cardiology recs -accompanied by congestive hepatopathy (again slightly improved today) (3) Streptococcemia: Plan: 11/24 blood cultures 09/04 w/ Strep agalactiae; 09/06 repeat cxs pending still 24 hrs out. cefepime > cefazolin suspect soft tissue etiology; not urine Admission and Anticipated Discharge Date Admission Date: September 04, 2024 Subjective still on low dose levo 0.02 mcg/ kg/min and can't wean as of this AM; on this low dose since last evening. 2 loose BM ON; none today; pt w/o c/o sob, uncontrolled pain, f/c. cardiology contemplating JOSE in AM. Review of Systems 2 Review of Systems: All systems reviewed & are unremarkable except as noted in Subjective Physical Exam 2 Constitutional: well developed, well nourished, average body habitus and cooperative; no acute distress Eyes: EOM intact bilaterally ENMT: Mouth: + dry oral mucous membranes Respiratory: normal respiratory effort, + labored breathing (slight & aristeo w/ exam maneuvers), able to speak in complete sentences, + tachypneic and + paradoxical thoraco-abdominal movement; no respiratory distress, no cough and expiratory phase not prolonged Auscultation: + diminished lung sounds and + crackles (fine bibasilar) Cardiovascular: RRR, no murmur, no edema Heart Sounds: + murmur E xtremities: + edema (1-2+ dependent, not peripheral) Gastrointestinal (Abdomen): Inspection/Auscultation: normal bowel sounds P ercussion/Palpation: abdomen soft, + ascites and + fluid wave; abdomen nontender Musculoskeletal: Extremities: strength 5/5 throughout Skin: no rashes, warm and dry (L foot not examined) Results & Data Vital Signs (Past 12 Hours) Vital Signs Temp Pulse Resp BP Pulse Ox O2 Del Method 09/07/24 09:00 70 19 95 Room Air 09/07/24 08:45 103/57 L 09/07/24 08:45 70 20 95 09/07/24 08:33 70 19 95 09/07/24 08:30 98/47 L 09/07/24 08:30 98/47 L 09/07/24 08:22 84/45 L 09/07/24 08:18 70 26 H 93 09/07/24 08:15 70 23 94 09/07/24 08:15 89/49 L 09/07/24 08:06 70 23 96 09/07/24 08:00 97/54 L 09/07/24 07:57 70 17 94 09/07/24 07:48 70 16 94 09/07/24 07:45 97/59 L 09/07/24 07:30 71 19 94 09/07/24 07:30 Room Air 09/07/24 07:27 70 16 95 09/07/24 07:09 70 09/07/24 07:00 36.6 C 09/07/24 07:00 102/63 09/07/24 06:48 70 17 95 Room Air 09/07/24 06:30 103/67 09/07/24 06:21 69 18 94 09/07/24 06:15 57 L 18 94 09/07/24 06:00 36.5 C 70 15 103/60 95 Room Air 09/07/24 05:45 70 16 95 09/07/24 05:30 54 L 18 92 09/07/24 05:00 71 23 92 09/07/24 04:45 71 18 95 09/07/24 04:36 70 13 93 09/07/24 04:34 102/53 L 09/07/24 04:34 102/53 L 09/07/24 04:34 102/53 L 09/07/24 04:24 56 L 30 H 92 09/07/24 04:12 70 23 93 09/07/24 04:00 100/52 L 09/07/24 03:39 36.5 C 70 22 94 Room Air 09/07/24 03:30 99/58 L 09/07/24 03:30 99/58 L 09/07/24 03:30 56 L 21 93 09/07/24 03:15 70 23 91 09/07/24 03:00 103/62 09/07/24 02:39 54 L 18 94 09/07/24 02:30 97/57 L 09/07/24 02:09 61 20 94 09/07/24 02:00 105/58 L 09/07/24 02:00 105/58 L 09/07/24 02:00 105/58 L 09/07/24 01:57 62 30 H 93 09/07/24 01:51 56 L 17 92 09/07/24 01:36 64 18 92 09/07/24 01:15 71 18 91 09/07/24 01:09 57 L 6 L 91 09/07/24 00:45 71 11 L 94 09/07/24 00:36 71 19 94 09/07/24 00:30 97/55 L 09/07/24 00:30 97/55 L 09/07/24 00:27 63 24 94 Room Air 09/07/24 00:21 56 L 23 93 09/07/24 00:00 96/55 L 09/07/24 00:00 96/55 L 09/07/24 00:00 36.5 C 54 L 19 93 Room Air 09/06/24 23:51 56 L 09/06/24 23:45 56 L 23 95 09/06/24 23:33 55 L 16 96 09/06/24 23:30 98/55 L 09/06/24 23:30 98/55 L 09/06/24 23:21 65 21 94 09/06/24 23:18 71 22 98 09/06/24 23:06 56 L 19 95 09/06/24 22:51 70 19 96 Laboratory Results 09/07/24 04:00 09/07/24 04:00 (2) Acute exacerbation of CHF (congestive heart failure) Heart failure type: systolic Qualified Code(s): I50.23 - Acute on chronic systolic (congestive) heart failure
[2024-09-07] MEDS: POTASSIUM CHLORIDE CRTAB 20 MEQ TABCR PO SCH (11:08)
--- NOTE | 2024-09-07 11:49 | Anesthesiology Consultation ---
Date of Service September 07, 2024 Assessment & Plan (1) Encounter for pre-operative examination: Chart Review Chart Review: Acceptable Risk for Surgery (urgent) History Height/Weight Height: 5 ft 9 in Weight: 93.8 kg Allergies Allergy/AdvReac Type Severity Reaction Status Date / Time lisinopril AdvReac Mild COUGHING Verified 08/13/24 10:59 Medications Home Medications Medication Instructions Recorded Confirmed Last Taken amiodarone 200 mg tablet 200 mg PO QAM 03/11/23 09/04/24 05/30/24 cholecalciferol (vitamin D3) 50 50 mcg PO DAILY 03/11/23 09/04/24 05/29/24 mcg (2,000 unit) capsule (Vitamin D3) furosemide 20 mg tablet 40 mg PO DAILY 03/11/23 09/04/24 05/30/24 potassium chloride 10 mEq 10 meq PO DAILY 03/11/23 09/04/24 05/30/24 capsule,extended release tamsulosin 0.4 mg capsule 0.4 mg PO DAILY #90 caps 07/29/23 09/04/24 Unknown apixaban 2.5 mg tablet 2.5 mg PO BID 05/13/24 09/04/24 05/27/24 bicalutamide 50 mg tablet (Casodex) 50 mg PO DAILY 05/13/24 09/04/24 05/30/24 levothyroxine 112 mcg tablet 112 mcg PO QAM 05/13/24 09/04/24 05/30/24 metoprolol succinate 50 mg 50 mg PO BID 05/13/24 09/04/24 05/30/24 tablet,extended release 24 hr clopidogrel 75 mg tablet (Plavix) 75 mg PO DAILY 07/06/24 09/04/24 Unknown degarelix 120 mg subcutaneous 240 mg subcut ONCE #2 ea 07/07/24 09/04/24 Unknown solution (Firmagon kit with diluent syringe) degarelix 80 mg subcutaneous 80 mg subcut Q28D #1 ea 07/19/24 09/04/24 Unknown solution (Firmagon kit with diluent syringe) degarelix 80 mg subcutaneous 80 mg subcut Q28D #1 ea 08/18/24 09/04/24 Unknown solution (Firmagon kit with diluent syringe) Active Medications Generic Name Dose Route Start Last Admin Trade Name Freq PRN Reason Stop Dose Admin Bicalutamide 50 mg 09/05/24 09:00 09/06/24 08:06 Bicalutamide 50 Mg Tab PO 10/05/24 08:59 50 mg DAILY MELANI Administration Clopidogrel Bisulfate 75 mg 09/05/24 09:00 09/07/24 08:11 Clopidogrel Bisulfate 75 Mg Tab PO 10/05/24 08:59 75 mg DAILY MELANI Administration Fidaxomicin 200 mg 09/06/24 23:00 09/07/24 08:13 Fidaxomicin 200 Mg Tab PO 09/16/24 22:59 200 mg BID MELANI Administration Cefazolin Sodium 2,000 mg in 15 mls @ 3.75 mls/min 09/05/24 18:00 09/07/24 08:11 Ancef 2000mg IV 09/19/24 17:59 3.75 mls/min Q12 MELANI Administration Protocol Norepinephrine Bitartrate 4 mg in 250 mls @ 7.283 mls/hr 09/05/24 19:15 09/07/24 08:36 Levophed/D5w IV 10/05/24 19:14 0.02 mcg/kg/min .Q24H MELANI 7.3 mls/hr Titration Protocol 0.02 MCG/KG/MIN Insulin Aspart 0 units 09/06/24 07:30 09/07/24 08:11 Insulin Aspart Per Unit Charge SC 10/06/24 07:29 5 units ACHS MELANI Administration Levothyroxine Sodium 112 mcg 09/05/24 06:30 09/07/24 06:03 Levothyroxine Sodium 112 Mcg Tablet PO 10/05/24 06:29 112 mcg DAILYBB MELANI Administration Potassium Chloride 20 meq 09/07/24 11:00 09/07/24 11:08 Potassium Chloride Crtab 20 Meq Tabcr PO 10/07/24 10:59 20 meq BID MELANI Administration Tamsulosin HCl 0.4 mg 09/05/24 09:00 09/05/24 08:51 Tamsulosin Hcl 0.4 Mg Cap PO 10/05/24 08:59 Not Given DAILY MELANI Past Medical History Medical History (Updated 09/07/24 @ 11:46 by Russell Drvier MD) Streptococcemia Acute kidney injury superimposed on stage 3b chronic kidney disease History of aspiration pneumonia admitted to [facility] 04/2024 Ischemic cardiomyopathy "prior EF 35-40% in August 2008; improved EF 50-54% on 11/24/16 echo" Paroxysmal atrial fibrillation hx--"postoperative" History of cardioembolic stroke ~2016, 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 Mitral regurgitation follows w/ Dr Hyde HTN (hypertension) Dyslipidemia Diabetes mellitus no meds currently BHUPINDER (obstructive sleep apnea) no device PFO (patent foramen ovale) Atrial septal defect Gout Diabetic neuropathy Chronic anticoagulation Hx of renal calculi Hx of ventricular tachycardia Transient vision disturbance of both eyes Peripheral artery disease Rectal bleeding Bowel obstruction (04/2024) recent admission to [facility] DJD of left shoulder Past Family History Family History Brother V-tach required AICD Past Surgical History Surgical History 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" History of total right knee replacement (2004) History of lithotripsy Hx of inguinal hernia repair (1954) Hx of colonoscopy History of right shoulder replacement (2009) History of left shoulder replacement AICD present, double chamber MEDTRONIC, implanted 2018 Social History Smoking Status: Never smoker Do You Dip or Chew Tobacco: No Hx Alcohol Use: No Hx Substance Use: No substance use type: does not use Physical Exam Vital Signs Last Vital Signs Temp 36.6 C 09/07/24 07:00 Pulse 71 09/07/24 11:00 Resp 22 09/07/24 11:00 BP 106/63 09/07/24 11:00 Pulse Ox 95 09/07/24 11:00 O2 Del Method Room Air 09/07/24 11:00 O2 Flow Rate 0 09/07/24 10:56 FiO2 40 09/04/24 15:57 Testing Laboratory Results 09/07/24 04:00 09/07/24 04:00 PT 16.2 Seconds (9.0-12.0) H 09/06/24 04:16 INR 1.6 (0.9-1.1) H 09/06/24 04:16 Urine Color Dark Yellow 09/04/24 17:19 Urine Appearance Cloudy (Clear) A 09/04/24 17:19 Urine pH 5.5 (4.5-7.5) 09/04/24 17:19 Ur Specific [place] 1.017 (1.000-1.030) 09/04/24 17:19 Urine Protein 3+ (Negative) H 09/04/24 17:19 Urine Glucose (UA) Negative (Negative) 09/04/24 17:19 Urine Ketones Negative (Negative) 09/04/24 17:19 Urine Nitrite Negative (Negative) 09/04/24 17:19 Ur Leukocyte Esterase Negative (Negative) 09/04/24 17:19 Urine WBC (Auto) 0-5 /hpf (0-5) 09/04/24 17:19 Urine RBC (Auto) 0-2 /hpf (0-2) 09/04/24 17:19 U Hyaline Cast (Auto) >20 /lpf (0-2) H 09/04/24 17:19 U Epithel Cells (Auto) 0-2 /hpf (0-2) 09/04/24 17:19 Urine Bacteria (Auto) None Seen (None Seen) 09/04/24 17:19 09/04/24 14:44 Aerobic Blood Culture - Final Blood Strep agalactiae (group B) Anaerobic Blood Culture - Final Strep agalactiae (group B) 09/04/24 15:07 Aerobic Blood Culture - Final Blood Strep agalactiae (group B) Anaerobic Blood Culture - Final Strep agalactiae (group B) 09/07/24 09/07/24 11:11 07:25 POC Glucose 163 H 129 H Echocardiogram Date: 09/05/24 EF: 25-30% Valvular Disease: + MR (moderate) moderate TR
--- NOTE | 2024-09-07 12:25 | Cardiology Progress Note ---
Date of Service September 07, 2024 Assessment & Plan (1) Sepsis: (2) VENITA (acute kidney injury): (3) Acute systolic heart failure: Plan 54-year-old male with acute on chronic heart failure with reduced ejection fraction due to ischemic cardiomyopathy. Complex cardiac history. Patient with underlying immunocompromised state in the setting of prostate cancer with radiation therapy. CT of the chest performed on admission revealed possible left lower lobe pneumonia as well as small bilateral pleural effusions and ascites. 2/2 blood cultures obtained on presentation 09/04/2024 have yielded findings of strep agalactiae. Repeat cultures 09/06/2024 without growth thus far. Stool C. difficile toxin B gene positive, toxin negative. He is now on contact isolation. Transaminases trending to improvement. Remains on low-dose Levophed for blood pressure support. Responding well to IV furosemide with noted 1.5 L negative fluid balance on 09/07/2024. Patient is on clopidogrel and Eliquis due to his history of coronary disease and recurrent cardioembolic stroke. With findings of thrombocytopenia (Likely related to sepsis) clopidogrel had been continued with caution, and Eliquis remains on hold pending determination of invasive procedure indicated. * Question if the left foot wound is the source of his strep bacteremia. Patient describes podiatry care for this lesion for the last 3 years. X-ray not suggestive of osteomyelitis. * Patient with history of a dual-chamber Medtronic AICD placed in 2019 in the setting of ischemic cardiomyopathy, left ventricular systolic dysfunction and sustained ventricular tachycardia. Patient is chronically AV paced and have concerns that he is likely pacemaker dependent. * Continue Ancef. 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 Amiodarone remains on hold as LFTs improved. * Fever cautious diuresis as kidney function and blood pressure allows rather than large volume paracentesis. * N.p.o. after midnight. If patient stable from a hemodynamically we will plan on transesophageal echocardiogram tomorrow, perhaps in his ICU room with anesthesia consult. Arrangements in process. * Continue SCDs for DVT prophylaxis. Admission and Anticipated Discharge Date Admission Date: September 04, 2024 Subjective Patient seen cardiology follow-up. Resting comfortably. No acute complaints. Able to lie supine without difficulty with breathing. Telemetry reveals AV sequential pacing with rates for the most part in the 50s. An 8 beat run of nonsustained ventricular tachycardia was observed at 6:22 AM on 09/07/2024 with rate of 110 bpm that terminated spontaneously. Review of Systems Review of Systems: All systems reviewed & are unremarkable except as noted in HPI & below Physical Exam Physical Exam: General: no acute distress and stated age Eyes: conjunctiva are pink and non-injected, sclera clear Neck: normal jugular venous pulse, no hepatojugular reflux Chest: normal shape and normal respiratory effort -left infraclavicular AICD pocket clean , dry and intact -No erythema Lungs: clear to auscultation and percussion Cardiac Exam: - regular heart sounds, no murmurs, rubs, or gallops, no jugular venous distention Abdomen: abdomen soft,Noted findings of abdominal bloating consistent with ascites Musculoskeletal: no gait disturbance, no weakness Extremities: no edema and no cyanosis Wound of lateral portion of left foot : Nichols catheter in place draining clear yellow urine Neuro:awake, conversant, follows commands, no focal motor deficits Psych: appropriate affect and insight. Results & Data Vital Signs (Past 12 Hours) Vital Signs Temp Pulse Resp BP Pulse Ox Pulse Ox O2 Del Method 09/07/24 11:00 71 22 95 Room Air 09/07/24 11:00 106/63 09/07/24 11:00 106/63 09/07/24 11:00 106/63 09/07/24 10:56 93 09/07/24 10:51 70 30 H 95 09/07/24 10:45 126/97 09/07/24 10:42 67 24 92 09/07/24 10:39 100/56 L 09/07/24 10:39 100/56 L 09/07/24 10:37 98/56 L 09/07/24 10:36 71 20 94 09/07/24 10:33 72 25 H 96 09/07/24 10:30 102/60 09/07/24 10:30 102/60 09/07/24 10:21 70 25 H 91 09/07/24 10:15 107/61 09/07/24 10:15 107/61 09/07/24 10:06 70 20 95 09/07/24 10:00 70 17 96 09/07/24 10:00 98/57 L 09/07/24 09:48 60 18 95 09/07/24 09:45 104/57 L 09/07/24 09:45 104/57 L 09/07/24 09:45 104/57 L 09/07/24 09:45 104/57 L 09/07/24 09:45 104/57 L 09/07/24 09:39 102/54 L 09/07/24 09:36 71 23 95 09/07/24 09:30 82/71 L 09/07/24 09:30 60 17 94 09/07/24 09:15 98/62 L 09/07/24 09:15 98/62 L 09/07/24 09:12 70 25 H 92 09/07/24 09:00 70 19 95 Room Air 09/07/24 08:45 103/57 L 09/07/24 08:45 70 20 95 09/07/24 08:33 70 19 95 09/07/24 08:30 98/47 L 09/07/24 08:30 98/47 L 09/07/24 08:22 84/45 L 09/07/24 08:18 70 26 H 93 09/07/24 08:15 70 23 94 09/07/24 08:15 89/49 L 09/07/24 08:06 70 23 96 09/07/24 08:00 97/54 L 09/07/24 07:57 70 17 94 09/07/24 07:48 70 16 94 09/07/24 07:45 97/59 L 09/07/24 07:30 71 19 94 09/07/24 07:30 Room Air 09/07/24 07:27 70 16 95 09/07/24 07:09 70 09/07/24 07:00 36.6 C 09/07/24 07:00 102/63 09/07/24 06:48 70 17 95 Room Air 09/07/24 06:30 103/67 09/07/24 06:21 69 18 94 09/07/24 06:15 57 L 18 94 09/07/24 06:00 36.5 C 70 15 103/60 95 Room Air 09/07/24 05:45 70 16 95 09/07/24 05:30 54 L 18 92 09/07/24 05:00 71 23 92 09/07/24 04:45 71 18 95 09/07/24 04:36 70 13 93 09/07/24 04:34 102/53 L 09/07/24 04:34 102/53 L 09/07/24 04:34 102/53 L 09/07/24 04:24 56 L 30 H 92 09/07/24 04:12 70 23 93 09/07/24 04:00 100/52 L 09/07/24 03:39 36.5 C 70 22 94 Room Air 09/07/24 03:30 99/58 L 09/07/24 03:30 99/58 L 09/07/24 03:30 56 L 21 93 09/07/24 03:15 70 23 91 09/07/24 03:00 103/62 09/07/24 02:39 54 L 18 94 09/07/24 02:30 97/57 L 09/07/24 02:09 61 20 94 09/07/24 02:00 105/58 L 09/07/24 02:00 105/58 L 09/07/24 02:00 105/58 L 09/07/24 01:57 62 30 H 93 09/07/24 01:51 56 L 17 92 09/07/24 01:36 64 18 92 09/07/24 01:15 71 18 91 09/07/24 01:09 57 L 6 L 91 09/07/24 00:45 71 11 L 94 09/07/24 00:36 71 19 94 09/07/24 00:30 97/55 L 09/07/24 00:30 97/55 L 09/07/24 00:27 63 24 94 Room Air 09/07/24 00:21 56 L 23 93 O2 Flow Rate 09/07/24 11:00 09/07/24 11:00 09/07/24 11:00 09/07/24 11:00 09/07/24 10:56 0 09/07/24 10:51 09/07/24 10:45 09/07/24 10:42 09/07/24 10:39 09/07/24 10:39 09/07/24 10:37 09/07/24 10:36 09/07/24 10:33 09/07/24 10:30 09/07/24 10:30 09/07/24 10:21 09/07/24 10:15 09/07/24 10:15 09/07/24 10:06 09/07/24 10:00 09/07/24 10:00 09/07/24 09:48 09/07/24 09:45 09/07/24 09:45 09/07/24 09:45 09/07/24 09:45 09/07/24 09:45 09/07/24 09:39 09/07/24 09:36 09/07/24 09:30 09/07/24 09:30 09/07/24 09:15 09/07/24 09:15 09/07/24 09:12 09/07/24 09:00 09/07/24 08:45 09/07/24 08:45 09/07/24 08:33 09/07/24 08:30 09/07/24 08:30 09/07/24 08:22 09/07/24 08:18 09/07/24 08:15 09/07/24 08:15 09/07/24 08:06 09/07/24 08:00 09/07/24 07:57 09/07/24 07:48 09/07/24 07:45 09/07/24 07:30 09/07/24 07:30 09/07/24 07:27 09/07/24 07:09 09/07/24 07:00 09/07/24 07:00 09/07/24 06:48 09/07/24 06:30 09/07/24 06:21 09/07/24 06:15 09/07/24 06:00 09/07/24 05:45 09/07/24 05:30 09/07/24 05:00 09/07/24 04:45 09/07/24 04:36 09/07/24 04:34 09/07/24 04:34 09/07/24 04:34 09/07/24 04:24 09/07/24 04:12 09/07/24 04:00 09/07/24 03:39 09/07/24 03:30 09/07/24 03:30 09/07/24 03:30 09/07/24 03:15 09/07/24 03:00 09/07/24 02:39 09/07/24 02:30 09/07/24 02:09 09/07/24 02:00 09/07/24 02:00 09/07/24 02:00 09/07/24 01:57 09/07/24 01:51 09/07/24 01:36 09/07/24 01:15 09/07/24 01:09 09/07/24 00:45 09/07/24 00:36 09/07/24 00:30 09/07/24 00:30 09/07/24 00:27 09/07/24 00:21 Laboratory Results Cardiac Enzymes 09/07/24 Range/Units 04:00 AST 209 H (13-39) U/L CBC 09/07/24 Range/Units 04:00 WBC 5.79 (4.8-10.8) K/ul RBC 3.08 L (4.70-6.10) M/uL Hgb 8.1 L (14.0-18.0) g/dl Hct 23.6 L (42.0-52.0) % Plt Count 106 L (130-400) K/uL Neut # (Auto) 4.60 (1.40-6.50) K/uL Lymph # (Auto) 0.46 L (1.20-3.40) K/uL [place] # (Auto) 0.30 (0.11-0.59) K/uL Eos # (Auto) 0.38 (0.00-0.50) K/uL Baso # (Auto) 0.01 (0.00-0.20) K/uL Comprehensive Metabolic Panel 09/06/24 09/07/24 Range/Units 19:31 04:00 Sodium 135 L 135 L (136-145) mmol/L Potassium 3.8 3.8 (3.5-5.1) mmol/L Chloride 102 102 (98-107) mmol/L Carbon Dioxide 24 25 (21-32) mmol/L BUN 60 H 60 H (6-23) mg/dl Creatinine 2.99 H 2.91 H (0.6-1.4) mg/dl Glucose 145 H 128 H (70-99(Fasting)) mg/dl Calcium 7.9 L 8.1 L (8.6-10.3) mg/dl AST 209 H (13-39) U/L ALT 155 H (7-52) U/L Alkaline Phosphatase 121 H (34-104) U/L Total Protein 5.0 L (6.0-8.3) gm/dl Albumin 2.8 L (3.4-5.0) gm/dl Intake and Output 09/06/24 09/07/24 09/07/24 22:59 06:59 14:59 Intake Total 815.137 / 1265.054 199.917 / 1265.054 489.490 / 489.490 Output Total 1046 / 2821 1475 / 2821 1075 / 1075 Balance -230.863 / -1555.946 -1275.083 / -1555.946 -585.510 / -585.510 Intake: IV 215.137 / 315.054 99.917 / 315.054 9.490 / 9.490 Norepinephrine/D5w 4 mg In 250 215.137 / 315.054 99.917 / 315.054 9.490 / 9.490 ml @ 0.02 MCG/KG/MIN 7.283 mls/ hr IV .Q24H [facility] Rx#:[id number] Oral 600 / 950 100 / 950 480 / 480 Output: Urine Amount (Catheter) 1045 / 2820 1475 / 2820 1075 / 1075 Nichols/Indwelling 1045 / 2820 1475 / 2820 1075 / 1075 # Bowel Movements Other: Weight 94.9 kg 93.8 kg Weight Measurement Method Built in Bedscale Standing Scale Patient Weight 09/08/24 06:59 Weight 93.8 kg (1) Sepsis Sepsis acute organ dysfunction status: with acute organ dysfunction Sepsis type: Streptococcus group B
[2024-09-07] MEDS: FUROSEMIDE 40 MG/4 ML VIAL IV SCH (12:27)
--- NOTE | 2024-09-07 14:50 | Hospitalist Progress Note ---
Date of Service September 07, 2024 Assessment & Plan (1) Acute lactic acidosis: (2) Acute hypoxemic respiratory failure: (3) Elevated brain natriuretic peptide (BNP) level: (4) Acute kidney injury superimposed on stage 3b chronic kidney disease: (5) Elevated liver function tests: (6) Elevated troponin level: (7) Hyperkalemia: Plan Junior Garcia is an 84-year-old male past medical history of DM type II, diabetic neuropathy, diabetic peripheral angiopathy, gouty arthropathy, hypothyroidism, BHUPINDER/nocturnal hypoxemia intolerant to CPAP, CKD stage IIIb, HTN, HLD, left arm DVT in 2017, paroxysmal atrial fibrillation anticoagulated with Eliquis, ventricular tachycardia s/p pacer-defibrillator placement in 2019, CAD s/p CABG x 3 in 2015, ischemic cardiomyopathy, systolic CHF, peripheral artery disease, left vertebral artery stenosis, atrial septal aneurysm, prostate cancer [currently receiving radiation + Casodex + Firmagon], 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 Sepsis Strep Bacteremia Possible Pneumonia Foot wound Acute metabolic Encephalopathy patient presented unresponsive and confused lactic acidosis noted, Procalcitonin elevated at 1.93 MRSA nares negative Respiratory bio fire panel negative UA unremarkable, no reflex urine culture Blood cultures 4 out of 4 bottles currently growing group B strep agalactiae chest x-ray noting cardiomegaly with pulmonary edema and small pleural effusions CT chest concerning for pneumonia CT abdomen pelvis concerning for cystitis Patient with left foot wound On IV Ancef at this time Repeat blood cultures in 48 hours- pending now ID consult- awaiting No more confusion, does not have any fever and/or chills and the white count is normalized Continue with current antibiotic of cefazolin twice daily Remains medically stable with low blood pressure requiring Levophed No fever and no chills and does not have any respiratory symptoms at rest Will have JOSE to rule out vegetations to Persistent hypotension Has been requiring pressor support with Levophed Also getting Lasix to decrease edema Acute hypoxic respiratory failure Possible pneumonia Pulmonary edema Pleural Effusions patient initially requiring oxygen supplementation X-ray and CT concerning for fluid overload Respiratory bio fire negative as noted above VBG noting pH of 7.34, pCO2 of 33 and bicarb of [address] was concerning for pneumonia Was initially on cefepime and Flagyl, transition to Ancef currently Patient currently on room air and improved Has been getting Levophed to maintain blood pressure and Lasix to continue diuresis as per the multifocal button inspector and the profiling machine set up operator tool Has been saturating normally on room air Acute Kidney Injury on CKD Creatinine baseline of 1.4-1.6 Creatinine has been trending up to 3.14 Nephrology consulted, appreciate recs Avoid nephrotoxic medications when able Monitor renal function closely -renal function has been improving gradually with BUN and creatinine today 60/2.9 on Transaminitis Ascites Liver enzymes significantly elevated likely secondary to hypotension with shock liverer Ultrasound revealed enlarged liver at 19.47 cm with coarse texture and thickening of KANIKA portal tract suggestive of cirrhosis GI consulted, appreciate recs Continue to monitor LFTs CT abdomen pelvis noting unremarkable liver Hepatitis panel ordered in the ICU- pending for now Continue to monitor LFTs-LFTs are improving gradually Demand ischemia Acute on Chronic Systolic and Diastolic Congestive Heart Failure Trops elevated but flat in the 30-40 range EKG ruled out for acute ischemia by interventional cardiology Echo with noted EF of 25 to 29%, diastolic grade 3 dysfunction septal wall abnormalities posterior wall akinetic with hypokinesis of the inferior wall, left atrium severely dilated, moderate MR, moderate TR and mildly elevated pulmonary artery systolic pressure Chest imaging concerning for cardiomegaly with pulmonary edema and small pleural effusions. Noted large volume ascites and anasarca Has been getting diuresis with Levophed on board to maintain blood pressure Cardiology consulted, appreciate further recs LFTs are improving gradually Atrial fibrillation Holding Eliquis for now Hold metoprolol succinate in setting of hypotension and sepsis Amiodarone also on hold Resume both as able Hyperkalemia K+ 5.7 on initial laboratory evaluation Treated with calcium gluconate/insulin in ED Continue to monitor and manage PRN Anemia Thrombocytopenia Hemoglobin and platelet levels noted to be low Holding home Eliquis Continue home Plavix Hypothyroidism continue levothyroxine. CAD/HLD Continue statin, Plavix Prostate Cancer Follows with Dr. Alejandro [[facility]] Currently undergoing radiation w/ [facility] + chemotherapy Continue Casodex DVT Prophylaxis: SCDs/TEDs for now. Code Status: DNR/DNI - No Resuscitation PCP: Sandra Judge MD Disposition: PT/OT for further recs once medically stable Admission and Anticipated Discharge Date Admission Date: September 04, 2024 Subjective 09-06 The patient was seen and examined in ICU He has been feeling worse today with more weakness and tiredness Denies any chest or abdominal pain and no nausea and or vomiting No fever and/or chills 09/07/2024 The patient was seen and examined in ICU He remains generally weak and lethargic and is still requiring intravenous Levophed to maintain blood pressure Has been getting furosemide to reduce fluid overload Review of Systems Review of Systems: All systems reviewed are unremarkable except as noted below Physical Exam Physical Exam: Lying in bed without any acute distress Constitutional: well developed, well nourished, + ill appearing and + obese Eyes: PERRL, conjunctivae normal, anicteric sclerae ENMT: external ear and nose normal, oropharynx normal Neck: trachea midline, no thyromegaly Respiratory: no respiratory distress Auscultation: lungs clear to auscultation bilaterally Cardiovascular: Rate/Rhythm: regular rate and regular rhythm; not tachycardic Heart Sounds: normal S1 and normal S2; no murmur Extremities: + edema ( trace edema bilaterally) Gastrointestinal (Abdomen): Inspection/Auscultation: normal bowel sounds; abdomen not distended Percussion/Palpation: abdomen soft; abdomen nontender Neurologic: normal touch/pain/proprioception and moves all extremities; no focal motor deficits Lymphatic: no cervical or axillary lymphadenopathy Results & Data Results & Data Vital Signs (Past 12 Hours) Vital Signs Temp Pulse Resp BP Pulse Ox Pulse Ox O2 Del Method 09/07/24 14:01 99/57 L 09/07/24 14:00 70 20 93 Room Air 09/07/24 13:30 99/60 L 09/07/24 13:03 63 18 97 09/07/24 13:00 100/64 09/07/24 12:54 67 18 95 Room Air 09/07/24 12:45 104/58 L 09/07/24 12:36 70 19 95 09/07/24 12:30 53 L 22 95 09/07/24 12:15 109/59 L 09/07/24 12:15 65 23 96 09/07/24 12:00 110/56 L 09/07/24 11:54 70 20 96 09/07/24 11:45 110/60 09/07/24 11:30 102/59 L 09/07/24 11:15 104/62 09/07/24 11:09 60 19 96 09/07/24 11:00 71 22 95 Room Air 09/07/24 11:00 106/63 09/07/24 11:00 106/63 09/07/24 11:00 106/63 09/07/24 10:56 93 09/07/24 10:51 70 30 H 95 09/07/24 10:45 126/97 09/07/24 10:42 67 24 92 09/07/24 10:39 100/56 L 09/07/24 10:39 100/56 L 09/07/24 10:37 98/56 L 09/07/24 10:36 71 20 94 09/07/24 10:33 72 25 H 96 09/07/24 10:30 102/60 09/07/24 10:30 102/60 09/07/24 10:21 70 25 H 91 09/07/24 10:15 107/61 09/07/24 10:15 107/61 09/07/24 10:06 70 20 95 09/07/24 10:00 70 17 96 09/07/24 10:00 98/57 L 09/07/24 09:48 60 18 95 09/07/24 09:45 104/57 L 09/07/24 09:45 104/57 L 09/07/24 09:45 104/57 L 09/07/24 09:45 104/57 L 09/07/24 09:45 104/57 L 09/07/24 09:39 102/54 L 09/07/24 09:36 71 23 95 09/07/24 09:30 82/71 L 09/07/24 09:30 60 17 94 09/07/24 09:15 98/62 L 09/07/24 09:15 98/62 L 09/07/24 09:12 70 25 H 92 09/07/24 09:00 70 19 95 Room Air 09/07/24 08:45 103/57 L 09/07/24 08:45 70 20 95 09/07/24 08:33 70 19 95 09/07/24 08:30 98/47 L 09/07/24 08:30 98/47 L 09/07/24 08:22 84/45 L 09/07/24 08:18 70 26 H 93 09/07/24 08:15 70 23 94 09/07/24 08:15 89/49 L 09/07/24 08:06 70 23 96 09/07/24 08:00 97/54 L 09/07/24 07:57 70 17 94 09/07/24 07:48 70 16 94 09/07/24 07:45 97/59 L 09/07/24 07:30 71 19 94 09/07/24 07:30 Room Air 09/07/24 07:27 70 16 95 09/07/24 07:09 70 09/07/24 07:00 36.6 C 09/07/24 07:00 102/63 09/07/24 06:48 70 17 95 Room Air 09/07/24 06:30 103/67 09/07/24 06:21 69 18 94 09/07/24 06:15 57 L 18 94 09/07/24 06:00 36.5 C 70 15 103/60 95 Room Air 09/07/24 05:45 70 16 95 09/07/24 05:30 54 L 18 92 09/07/24 05:00 71 23 92 09/07/24 04:45 71 18 95 09/07/24 04:36 70 13 93 09/07/24 04:34 102/53 L 09/07/24 04:34 102/53 L 09/07/24 04:34 102/53 L 09/07/24 04:24 56 L 30 H 92 09/07/24 04:12 70 23 93 09/07/24 04:00 100/52 L 09/07/24 03:39 36.5 C 70 22 94 Room Air 09/07/24 03:30 99/58 L 09/07/24 03:30 99/58 L 09/07/24 03:30 56 L 21 93 09/07/24 03:15 70 23 91 09/07/24 03:00 103/62 O2 Flow Rate 09/07/24 14:01 09/07/24 14:00 09/07/24 13:30 09/07/24 13:03 09/07/24 13:00 09/07/24 12:54 09/07/24 12:45 09/07/24 12:36 09/07/24 12:30 09/07/24 12:15 09/07/24 12:15 09/07/24 12:00 09/07/24 11:54 09/07/24 11:45 09/07/24 11:30 09/07/24 11:15 09/07/24 11:09 09/07/24 11:00 09/07/24 11:00 09/07/24 11:00 09/07/24 11:00 09/07/24 10:56 0 09/07/24 10:51 09/07/24 10:45 09/07/24 10:42 09/07/24 10:39 09/07/24 10:39 09/07/24 10:37 09/07/24 10:36 09/07/24 10:33 09/07/24 10:30 09/07/24 10:30 09/07/24 10:21 09/07/24 10:15 09/07/24 10:15 09/07/24 10:06 09/07/24 10:00 09/07/24 10:00 09/07/24 09:48 09/07/24 09:45 09/07/24 09:45 09/07/24 09:45 09/07/24 09:45 09/07/24 09:45 09/07/24 09:39 09/07/24 09:36 09/07/24 09:30 09/07/24 09:30 09/07/24 09:15 09/07/24 09:15 09/07/24 09:12 09/07/24 09:00 09/07/24 08:45 09/07/24 08:45 09/07/24 08:33 09/07/24 08:30 09/07/24 08:30 09/07/24 08:22 09/07/24 08:18 09/07/24 08:15 09/07/24 08:15 09/07/24 08:06 09/07/24 08:00 09/07/24 07:57 09/07/24 07:48 09/07/24 07:45 09/07/24 07:30 09/07/24 07:30 09/07/24 07:27 09/07/24 07:09 09/07/24 07:00 09/07/24 07:00 09/07/24 06:48 09/07/24 06:30 09/07/24 06:21 09/07/24 06:15 09/07/24 06:00 09/07/24 05:45 09/07/24 05:30 09/07/24 05:00 09/07/24 04:45 09/07/24 04:36 09/07/24 04:34 09/07/24 04:34 09/07/24 04:34 09/07/24 04:24 09/07/24 04:12 09/07/24 04:00 09/07/24 03:39 09/07/24 03:30 09/07/24 03:30 09/07/24 03:30 09/07/24 03:15 09/07/24 03:00 Laboratory Results Short CBC 09/07/24 Range/Units 04:00 WBC 5.79 (4.8-10.8) K/ul Hgb 8.1 L (14.0-18.0) g/dl Hct 23.6 L (42.0-52.0) % Plt Count 106 L (130-400) K/uL BMP 09/06/24 09/07/24 19:31 04:00 Sodium 135 L 135 L Potassium 3.8 3.8 Chloride 102 102 Carbon Dioxide 24 25 BUN 60 H 60 H Creatinine 2.99 H 2.91 H Glucose 145 H 128 H Calcium 7.9 L 8.1 L Liver Function 09/07/24 Range/Units 04:00 Total Bilirubin 1.5 H (0.2-1.0) mg/dl AST 209 H (13-39) U/L ALT 155 H (7-52) U/L Alkaline Phosphatase 121 H (34-104) U/L Albumin 2.8 L (3.4-5.0) gm/dl Medications Administered Current Inpatient Medications Bicalutamide (Bicalutamide 50 Mg Tab) 50 mg PO DAILY MELANI Stop: 10/05/24 08:59 Last Admin: 09/06/24 08:06 Dose: 50 mg Clopidogrel Bisulfate (Clopidogrel Bisulfate 75 Mg Tab) 75 mg PO DAILY MELANI Stop: 10/05/24 08:59 Last Admin: 09/07/24 08:11 Dose: 75 mg Dextrose (Dextrose 50% 50 Ml Syringe) 25 - 50 ml IV UD PRN; Protocol PRN Reason: Hypoglycemia Protocol Stop: 10/06/24 07:01 Fidaxomicin (Fidaxomicin 200 Mg Tab) 200 mg PO BID MELANI Stop: 09/16/24 22:59 Last Admin: 09/07/24 08:13 Dose: 200 mg Furosemide (Furosemide 40 Mg/4 Ml Vial) 30 mg IV TID@0600,1200,1800 MELANI Stop: 10/07/24 12:59 Last Admin: 09/07/24 12:27 Dose: 30 mg Glucagon (Glucagon For Inj 1 Mg Vial) 1 mg SQ UD PRN; Protocol PRN Reason: Hypoglycemia Protocol Stop: 10/06/24 07:01 Glucose (Glucose 40% Gel 15 Gm Tube) 15 - 30 gm PO UD PRN; Protocol PRN Reason: Hypoglycemia Protocol Stop: 10/06/24 07:01 Glucose (Glucose 10 Tab/Tube) 4 - 8 tab PO UD PRN; Protocol PRN Reason: Hypoglycemia Protocol Stop: 10/06/24 07:01 Cefazolin Sodium (Ancef 2000mg) 2,000 mg in 15 mls @ 3.75 mls/min IV Q12 MELANI; Protocol Stop: 09/19/24 17:59 Last Admin: 09/07/24 08:11 Dose: 3.75 mls/min Norepinephrine Bitartrate (Levophed/D5w) 4 mg in 250 mls @ 0 mls/hr IV .Q0M MELANI; Protocol Stop: 10/05/24 19:14 Last Titration: 09/07/24 13:00 Dose: 0 mcg/kg/min, 0 mls/hr Insulin Aspart (Insulin Aspart Per Unit Charge) 0 units SC ACHS MELANI Stop: 10/06/24 07:29 Last Admin: 09/07/24 12:27 Dose: 7 units Levothyroxine Sodium (Levothyroxine Sodium 112 Mcg Tablet) 112 mcg PO DAILYBB MELANI Stop: 10/05/24 06:29 Last Admin: 09/07/24 06:03 Dose: 112 mcg Miscellaneous (Carbohydrates For Hypoglycemia ) 15 - 30 gm PO UD PRN PRN Reason: Hypoglycemia Protocol Stop: 10/06/24 07:01 Polyethylene Glycol (Polyethylene (Miralax) 17 Gm Pack) 17 gm PO DAILY PRN PRN Reason: CONSTIPATION Stop: 10/05/24 10:19 Potassium Chloride (Potassium Chloride Crtab 20 Meq Tabcr) 20 meq PO BID MELANI Stop: 10/07/24 10:59 Last Admin: 09/07/24 11:08 Dose: 20 meq Tamsulosin HCl (Tamsulosin Hcl 0.4 Mg Cap) 0.4 mg PO DAILY [facility] Stop: 10/05/24 08:59 Last Admin: 09/05/24 08:51 Dose: Not Given
--- NOTE | 2024-09-07 15:30 | Billing Data ---
Date of Service September 07, 2024 Coding Level of Care Code 14817 SUB INP/OBS CARE
[2024-09-08] MEDS ORDERED: Nursing to Pharmacy Communication SCH ×2 (03:45→17:30)
[2024-09-08 04:33] LABS: Basophils # (auto) 0.01 K/uL (0.00-0.20); Basophils % (auto) 0.2 %; Eosinophils # (auto) 0.23 K/uL (0.00-0.50); Eosinophils % (auto) 4.4 %; Hematocrit (blood only) 23.3 % (42.0-52.0); Hemoglobin 7.9 g/dl (14.0-18.0); Immature Granulocytes # (auto) 0.06 K/uL (0.01-0.20); Immature Granulocytes % (auto) 1.1 %; Lymphocytes # (auto) 0.36 K/uL (1.20-3.40); Lymphocytes % (auto) 6.8 %; Mean Corpuscular Hemoglobin 26.2 pg (25.0-34.0); Mean Corpuscular Hgb Conc 33.9 g/dL (32.0-36.0); Mean Corpuscular Volume 77.4 fL (80.0-100.0); Mean Platelet Volume 10.5 fL (9.4-12.4); Monocytes # (auto) 0.26 K/uL (0.11-0.59); Monocytes % (auto) 4.9 %; Neutrophils # (auto) 4.35 K/uL (1.40-6.50); Neutrophils % (auto) 82.6 %; Platelet Count 105 K/uL (130-400); RDW Coefficient of Variation 22.1 % (11.5-14.5); RDW Standard Deviation 59.7 fL (36.4-46.3); Red Blood Count 3.01 M/uL (4.70-6.10); White Blood Count 5.27 K/ul (4.8-10.8)
[2024-09-08 04:42] LABS: Albumin Globulin Ratio 1.3 (0.9-2); Albumin Level 2.8 gm/dl (3.4-5.0); BUN Creatinine Ratio 21.3 (10-20); Bilirubin,Total 1.8 mg/dl (0.2-1.0); Calcium 7.9 mg/dl (8.6-10.3); Creatinine Clr Calc Pharmacy 25.4 ml/min; Globulin 2.2 gm/dl (2.5-4.0); Magnesium 1.7 mg/dl (1.7-2.4); Potassium 3.5 mmol/L (3.5-5.1)
[2024-09-08 05:08] LABS: Anisocytosis Present; Hypochromasia Present; Target Cells 1+
[2024-09-08] MEDS: INSULIN ASPART PER UNIT CHARGE SC SCH ×2 (05:15→20:28)
[2024-09-08] MEDS ORDERED: PROPOFOL IV EMULSION 10 MG/ML 20 ML VIAL IV ONE (08:42)
[2024-09-08] MEDS ORDERED: LIDOCAINE 2% 2 ML VIAL/AMP(20MG/ML) INFIL ONE (08:42)
[2024-09-08] MEDS ORDERED: KETAMINE HCL 10MG/ML SYR ONE (08:42)
--- NOTE | 2024-09-08 09:01 | History & Physical Bridge Note ---
Date of Service September 08, 2024 History & Physical Bridge Note I have examined the patient, reviewed the History & Physical and in the interval since the performance of the History & Physical I have noted the following changes of clinical significance: no changes noted. Patient off pressors since yesterday afternoon. Informed consent for JOSE obtained. Patient elects to proceed.
--- NOTE | 2024-09-08 09:51 | Post Operative Brief Note ---
Cardiology Brief Post Op Date of Surgery September 08, 2024 Pre & Post Diagnosis Operation Date: 09/08/24 09:00 Procedure Preprocedure diagnosis: Bacteremia, assess for vegetation Postprocedure diagnosis: No evidence of vegetation on cardiac valves or AICD leads Transesophageal echocardiogram procedure: The patient's vital signs were monitored via the standard fashion. After informed consent was obtained and a timeout was performed the patient was sedated with the assistance of the anesthesia service receiving a total of 180 mg of propofol, 60 mg lidocaine, 15 mg of ketamine, and 200 mcg of phenylephrine were administered. Moderate mitral valve regurgitation was present. Moderate tricuspid valve regurgitation was present. The aortic valve is moderately calcified with mildly reduced excursion mild aortic stenosis, perhaps related to low flow state observed. There was no evidence of valvular vegetation. The right atrial and right ventricular AICD leads were well-visualized without evidence of vegetation. [place] Supervisor Conrad Do DO Demographic Analyst Isaura Terrazas, RCS Estimated Blood Loss 0 Findings Consistent with Post-Op Diagnosis as noted above. Anesthesia Type MAC Complications none
--- NOTE | 2024-09-08 09:55 | Cardiology Progress Note ---
Date of Service September 08, 2024 Assessment & Plan (1) Sepsis: (2) VENITA (acute kidney injury): (3) Acute systolic heart failure: Plan 54-year-old male with acute on chronic heart failure with reduced ejection fraction due to ischemic cardiomyopathy. Complex cardiac history. Patient with underlying immunocompromised state in the setting of prostate cancer with radiation therapy. CT of the chest performed on admission revealed possible left lower lobe pneumonia as well as small bilateral pleural effusions and ascites. 2/2 blood cultures obtained on presentation 09/04/2024 have yielded findings of strep agalactiae. Repeat cultures 09/06/2024 without growth thus far. Stool C. difficile toxin B gene positive, toxin negative. He is now on contact isolation. Transaminases trending to improvement. Low dose Levophed had been administered for BP support which was weaned to off on the afternoon of 09/07/24. Responding well to IV furosemide , balance -3.9 L in last 24 hours. Patient is on clopidogrel and Eliquis due to his history of coronary disease and recurrent cardioembolic stroke. With findings of thrombocytopenia (Likely related to sepsis) clopidogrel had been continued with caution. With improved platelets and now that JOSE completed, can likely resume Eliquis, dose at present would be 2.5 mg BID given renal function. * Question if the left foot wound is the source of his strep bacteremia. Patient describes podiatry care for this lesion for the last 3 years. X-ray not suggestive of osteomyelitis. * Patient with history of a dual-chamber [employer]onic AICD placed in 2019 in the setting of ischemic cardiomyopathy, left ventricular systolic dysfunction and sustained ventricular tachycardia. Patient is chronically AV paced and have concerns that he is likely pacemaker dependent. * JOSE on 09/08/24 with no valvular vegetation. AICD leads well visualized and without vegetation. * Continue Ancef. 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 Amiodarone remains on hold as LFTs improved. * Continue SCDs for DVT prophylaxis. Admission and Anticipated Discharge Date Admission Date: September 04, 2024 Subjective Patient seen in cardiology follow up prior to, during and after JOSE. No events overnight. No acute complaints. Telemetry reveals SR with AV sequential pacing in the 50s to 70s. Physical Exam Physical Exam: General: no acute distress and stated age Eyes: conjunctiva are pink and non-injected, sclera clear Neck: normal jugular venous pulse, no hepatojugular reflux Chest: normal shape and normal respiratory effort -left infraclavicular AICD pocket clean , dry and intact -No erythema Lungs: clear to auscultation and percussion Cardiac Exam: - regular heart sounds, no murmurs, rubs, or gallops, no jugular venous distention Abdomen: abdomen soft,Noted findings of abdominal bloating consistent with ascites Musculoskeletal: no gait disturbance, no weakness Extremities: no edema and no cyanosis Wound of lateral portion of left foot : Nichols catheter in place draining clear yellow urine Neuro:awake, conversant, follows commands, no focal motor deficits Psych: appropriate affect and insight. Results & Data Vital Signs (Past 12 Hours) Vital Signs Temp Pulse Resp BP Pulse Ox O2 Del Method 09/08/24 09:00 94/43 L 09/08/24 09:00 94/43 L 09/08/24 08:51 70 16 95 Room Air 09/08/24 08:48 57 L 23 93 09/08/24 08:39 59 L 19 96 09/08/24 08:21 70 22 94 09/08/24 08:03 72 13 93 09/08/24 08:00 101/52 L 09/08/24 08:00 71 09/08/24 07:39 63 18 93 Room Air 09/08/24 07:00 85/41 L 09/08/24 07:00 59 L 18 88 L 09/08/24 06:03 62 15 94 09/08/24 06:00 103/56 L 09/08/24 05:54 64 15 95 09/08/24 05:00 70 18 98 09/08/24 05:00 70 14 102/58 L 98 Room Air 09/08/24 04:15 56 L 18 95 09/08/24 03:30 62 15 94 09/08/24 03:24 57 L 20 94 09/08/24 03:00 97/52 L 09/08/24 03:00 97/52 L 09/08/24 03:00 97/52 L 09/08/24 03:00 70 21 93 09/08/24 02:51 70 18 92 09/08/24 02:42 65 15 94 09/08/24 02:15 70 19 92 09/08/24 02:00 60 21 94 09/08/24 02:00 36.9 C 106/53 L 09/08/24 02:00 106/53 L 09/08/24 01:51 70 21 93 09/08/24 01:21 70 25 H 94 09/08/24 01:00 70 19 90 09/08/24 01:00 101/52 L 09/08/24 01:00 101/52 L 09/08/24 01:00 101/52 L 09/08/24 01:00 101/52 L 09/08/24 00:54 70 20 93 09/08/24 00:33 70 18 95 09/08/24 00:15 70 19 95 09/08/24 00:00 59 L 21 93 09/08/24 00:00 95/57 L 09/08/24 00:00 95/57 L 09/08/24 00:00 95/57 L 09/08/24 00:00 95/57 L 09/07/24 23:52 70 09/07/24 23:51 67 13 92 09/07/24 23:30 70 22 95 09/07/24 23:15 71 17 93 09/07/24 23:03 60 22 95 09/07/24 23:00 99/54 L 09/07/24 23:00 99/54 L 09/07/24 22:48 70 15 93 09/07/24 22:45 70 18 95 09/07/24 22:33 54 L 18 96 09/07/24 22:15 58 L 13 94 09/07/24 22:09 59 L 19 95 Laboratory Results Cardiac Enzymes 09/08/24 Range/Units 04:01 AST 157 H (13-39) U/L CBC 09/08/24 Range/Units 04:01 WBC 5.27 (4.8-10.8) K/ul RBC 3.01 L (4.70-6.10) M/uL Hgb 7.9 L (14.0-18.0) g/dl Hct 23.3 L (42.0-52.0) % Plt Count 105 L (130-400) K/uL Neut # (Auto) 4.35 (1.40-6.50) K/uL Lymph # (Auto) 0.36 L (1.20-3.40) K/uL [place] # (Auto) 0.26 (0.11-0.59) K/uL Eos # (Auto) 0.23 (0.00-0.50) K/uL Baso # (Auto) 0.01 (0.00-0.20) K/uL Comprehensive Metabolic Panel 09/08/24 Range/Units 04:01 Sodium 136 (136-145) mmol/L Potassium 3.5 (3.5-5.1) mmol/L Chloride 101 (98-107) mmol/L Carbon Dioxide 27 (21-32) mmol/L BUN 54 H (6-23) mg/dl Creatinine 2.54 H D (0.6-1.4) mg/dl Glucose 82 (70-99(Fasting)) mg/dl Calcium 7.9 L (8.6-10.3) mg/dl AST 157 H (13-39) U/L ALT 51 (7-52) U/L Alkaline Phosphatase 108 H (34-104) U/L Total Protein 5.0 L (6.0-8.3) gm/dl Albumin 2.8 L (3.4-5.0) gm/dl Intake and Output 09/07/24 09/08/24 09/08/24 22:59 06:59 14:59 Intake Total 640 / 1211.610 Output Total 1901 / 4433 1157 / 4433 Balance -1261 / -3221.390 -1157 / -3221.390 Intake: Oral 640 / 1170 Output: Urine 0 / 0 Urine Amount (Catheter) 1899 1155 / 4430 Nichols/Indwelling 1899 1155 / 4430 # Bowel Movements 1 / 3 2 / 3 Other: Weight 90.7 kg 90.7 kg Weight Measurement Method Built in [facility] Patient Weight 09/09/24 06:59 Weight 90.7 kg (1) Sepsis Sepsis acute organ dysfunction status: with acute organ dysfunction Sepsis type: Streptococcus group B
[2024-09-08] MEDS: BENZOCAINE/TETRACAIN/BUTAM 50 APPLN/5 GM CAN EXT ONE (10:26)
[2024-09-08] MEDS: MAGNESIUM SULFATE / D5W 1 GM/100 ML BAG IV SCH (10:27)
--- NOTE | 2024-09-08 10:50 | Critical Care Progress Note ---
Date of Service September 08, 2024 Assessment & Plan (1) Acute lactic acidosis: (2) Sepsis: (3) Elevated brain natriuretic peptide (BNP) level: (4) VENITA (acute kidney injury): (5) Hepatopathy: (6) Chronic anticoagulation: (7) Ascites: (8) Acute systolic heart failure: (9) Streptococcemia: (10) Anemia: (11) Thrombocytopenia: (12) Diarrhea: Plan Lactic acidosis resolved. Blood cultures from 09/04/24 positive for Strep agalactiae (GBS), pending repeat blood cultures from 09/06/24 negative thus far. Possible source being left foot ulcer. No signs of osteomyelitis on exam or on x-ray. Antibiotics de-escalated to Ancef. Possible sources or extremity ulcer. Urinalysis was not suggestive of UTI. Chest imaging was not overtly suggestive of pneumonia. Radiology did note mild heterogeneous opacification of the left lower lobe which I suspect is atelectasis. Patient saturating well on room air and without productive cough or pneumonia symptoms. JOSE completed 09/08/2024 largely unremarkable from an endocarditis standpoint. Patient weaned off pressors. Hepatitis panel negative.. LFTs trending downwards likely due to resolving shock liver and congestive hepatopathy. Continue to monitor urine output closely. Lasix 30mg BID IV started yesterday 09/06/24 with good urine output. Appreciate cardiology and nephrology input. Anemia at baseline. Thrombocytopenia resolving. Restart low-dose outpatient Eliquis and continue Plavix. Diarrhea with C. diff gene positive toxin negative. 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 Continue on fidaxomicin for now. Await ID consultation. Holding Casodex in the setting of acute illness. Continue home levothyroxine dose. TSH 5.14, fT4 WNL. Transfer to PCU. Admission and Anticipated Discharge Date Admission Date: September 04, 2024 Subjective No significant events overnight of this morning. Off pressors since yesterday afternoon. Underwent JOSE today which was uneventful. No signs of endocarditis per cardiology. Review of Systems Review of Systems: All systems reviewed & are unremarkable except as noted in HPI & below Physical Exam Physical Exam: Constitutional: Patient appears to be of their stated age. Patient is in no apparent distress. Patient is well-developed. Eyes: Pupils are equal round and reactive to light. Conjunctivae are normal. Anicteric sclera. Ears nose, mouth and throat: Mallampati class 2. Normal posterior oropharynx. Uvula is midline. BiPAP mask in place. Neck: Trachea is midline. Visual inspection is normal. Respiratory: Clear to auscultation bilaterally. No use of accessory muscles. No significant clubbing noted. Mildly tachypneic. Cardiovascular: Regular rate and rhythm. No murmurs. 3+ edema in the lower extremities bilaterally. Mild fluid wave on abdomen exam. Gastrointestinal: Normal bowel sounds, soft, nontender and nondistended. No hepatosplenomegaly noted. Musculoskeletal: No cyanosis. Patient is able to move all extremities. Strength is 5 out of 5 in the upper and lower extremities. Skin: No rashes, warm dry and intact. Neurologic: No obvious focal neurological deficits seen. Psychiatric: Alert and oriented x3 with a euthymic affect. Results & Data Results & Data Vital Signs (Past 12 Hours) Vital Signs Temp Pulse Pulse Resp BP BP Pulse Ox 09/08/24 09:58 62 14 93/49 L 95 09/08/24 09:55 70 14 81/48 L 95 09/08/24 09:00 94/43 L 09/08/24 09:00 94/43 L 09/08/24 08:51 70 16 95 09/08/24 08:48 57 L 23 93 09/08/24 08:39 59 L 19 96 09/08/24 08:21 70 22 94 09/08/24 08:03 72 13 93 09/08/24 08:00 101/52 L 09/08/24 08:00 71 09/08/24 07:39 63 18 93 09/08/24 07:00 85/41 L 09/08/24 07:00 59 L 18 88 L 09/08/24 06:03 62 15 94 09/08/24 06:00 103/56 L 09/08/24 05:54 64 15 95 09/08/24 05:00 70 18 98 09/08/24 05:00 70 14 102/58 L 98 09/08/24 04:15 56 L 18 95 09/08/24 03:30 62 15 94 09/08/24 03:24 57 L 20 94 09/08/24 03:00 97/52 L 09/08/24 03:00 97/52 L 09/08/24 03:00 97/52 L 09/08/24 03:00 70 21 93 09/08/24 02:51 70 18 92 09/08/24 02:42 65 15 94 09/08/24 02:15 70 19 92 09/08/24 02:00 60 21 94 09/08/24 02:00 36.9 C 106/53 L 09/08/24 02:00 106/53 L 09/08/24 01:51 70 21 93 09/08/24 01:21 70 25 H 94 09/08/24 01:00 70 19 90 09/08/24 01:00 101/52 L 09/08/24 01:00 101/52 L 09/08/24 01:00 101/52 L 09/08/24 01:00 101/52 L 09/08/24 00:54 70 20 93 09/08/24 00:33 70 18 95 09/08/24 00:15 70 19 95 09/08/24 00:00 59 L 21 93 09/08/24 00:00 95/57 L 09/08/24 00:00 95/57 L 09/08/24 00:00 95/57 L 09/08/24 00:00 95/57 L 09/07/24 23:52 70 09/07/24 23:51 67 13 92 09/07/24 23:30 70 22 95 09/07/24 23:15 71 17 93 09/07/24 23:03 60 22 95 09/07/24 23:00 99/54 L 09/07/24 23:00 99/54 L 09/07/24 22:48 70 15 93 O2 Del Method 09/08/24 09:58 Room Air 09/08/24 09:55 Room Air 09/08/24 09:00 09/08/24 09:00 09/08/24 08:51 Room Air 09/08/24 08:48 09/08/24 08:39 09/08/24 08:21 09/08/24 08:03 09/08/24 08:00 09/08/24 08:00 09/08/24 07:39 Room Air 09/08/24 07:00 09/08/24 07:00 09/08/24 06:03 09/08/24 06:00 09/08/24 05:54 09/08/24 05:00 09/08/24 05:00 Room Air 09/08/24 04:15 09/08/24 03:30 09/08/24 03:24 09/08/24 03:00 09/08/24 03:00 09/08/24 03:00 09/08/24 03:00 09/08/24 02:51 09/08/24 02:42 09/08/24 02:15 09/08/24 02:00 09/08/24 02:00 09/08/24 02:00 09/08/24 01:51 09/08/24 01:21 09/08/24 01:00 09/08/24 01:00 09/08/24 01:00 09/08/24 01:00 09/08/24 01:00 09/08/24 00:54 09/08/24 00:33 09/08/24 00:15 09/08/24 00:00 09/08/24 00:00 09/08/24 00:00 09/08/24 00:00 09/08/24 00:00 09/07/24 23:52 09/07/24 23:51 09/07/24 23:30 09/07/24 23:15 09/07/24 23:03 09/07/24 23:00 09/07/24 23:00 09/07/24 22:48 Coding Level of Care Code 15267 SUB INP/OBS CARE 09/16MIN Diagnoses Acute lactic acidosis E87.21 Sepsis A41.9 Sepsis acute organ dysfunction status: with acute organ dysfunction Sepsis type: Streptococcus group B Elevated brain natriuretic peptide (BNP) level R79.89 VENITA (acute kidney injury) N17.9 Hepatopathy K76.9 Chronic anticoagulation Z79.01 Ascites R18.8 Acute systolic heart failure I50.21 Streptococcemia A40.9 Anemia, unspecified type D64.9 Anemia type: unspecified type Thrombocytopenia D69.6 Diarrhea, unspecified type R19.7 Diarrhea type: unspecified type (2) Sepsis Sepsis acute organ dysfunction status: with acute organ dysfunction Sepsis type: Streptococcus group B (10) Anemia Anemia type: unspecified type Qualified Code(s): D64.9 - Anemia, unspecified (12) Diarrhea Diarrhea type: unspecified type Qualified Code(s): R19.7 - Diarrhea, unspecified
--- NOTE | 2024-09-08 10:57 | Anesthesiology Progress Note ---
Date of Service September 08, 2024 Anesthesia Post Procedure Vital Signs Vital Signs: Temp Pulse Pulse Resp BP BP Pulse Ox 09/08/24 09:58 62 14 93/49 L 95 09/08/24 09:55 70 14 81/48 L 95 09/08/24 09:00 94/43 L 09/08/24 09:00 94/43 L 09/08/24 08:51 70 16 95 09/08/24 08:48 57 L 23 93 09/08/24 08:39 59 L 19 96 09/08/24 08:21 70 22 94 09/08/24 08:03 72 13 93 09/08/24 08:00 101/52 L 09/08/24 08:00 71 09/08/24 07:39 63 18 93 09/08/24 07:00 85/41 L 09/08/24 07:00 59 L 18 88 L 09/08/24 06:03 62 15 94 09/08/24 06:00 103/56 L 09/08/24 05:54 64 15 95 09/08/24 05:00 70 18 98 09/08/24 05:00 70 14 102/58 L 98 09/08/24 04:15 56 L 18 95 09/08/24 03:30 62 15 94 09/08/24 03:24 57 L 20 94 09/08/24 03:00 97/52 L 09/08/24 03:00 97/52 L 09/08/24 03:00 97/52 L 09/08/24 03:00 70 21 93 09/08/24 02:51 70 18 92 09/08/24 02:42 65 15 94 09/08/24 02:15 70 19 92 09/08/24 02:00 60 21 94 09/08/24 02:00 36.9 C 106/53 L 09/08/24 02:00 106/53 L 09/08/24 01:51 70 21 93 09/08/24 01:21 70 25 H 94 09/08/24 01:00 70 19 90 09/08/24 01:00 101/52 L 09/08/24 01:00 101/52 L 09/08/24 01:00 101/52 L 09/08/24 01:00 101/52 L 09/08/24 00:54 70 20 93 09/08/24 00:33 70 18 95 09/08/24 00:15 70 19 95 09/08/24 00:00 59 L 21 93 09/08/24 00:00 95/57 L 09/08/24 00:00 95/57 L 09/08/24 00:00 95/57 L 09/08/24 00:00 95/57 L 09/07/24 23:52 70 09/07/24 23:51 67 13 92 09/07/24 23:30 70 22 95 09/07/24 23:15 71 17 93 09/07/24 23:03 60 22 95 09/07/24 23:00 99/54 L 09/07/24 23:00 99/54 L 09/07/24 22:48 70 15 93 09/07/24 22:45 70 18 95 09/07/24 22:33 54 L 18 96 09/07/24 22:15 58 L 13 94 09/07/24 22:09 59 L 19 95 09/07/24 21:45 70 16 94 09/07/24 21:12 71 7 L 94 09/07/24 21:00 99/57 L 09/07/24 20:30 86 20 91 09/07/24 20:30 09/07/24 20:06 70 15 100 09/07/24 20:00 105/57 L 09/07/24 20:00 70 15 105/57 L 97 09/07/24 19:30 36.4 C L 71 18 95/58 L 92 09/07/24 19:29 54 L 09/07/24 19:24 79 21 91 09/07/24 18:44 102/54 L 09/07/24 18:42 70 18 95 09/07/24 18:30 70 21 98 09/07/24 18:24 72 23 99 09/07/24 18:00 104/53 L 09/07/24 18:00 104/53 L 09/07/24 18:00 104/53 L 09/07/24 17:39 72 17 95 09/07/24 17:30 99/59 L 09/07/24 17:27 70 22 95 09/07/24 17:00 97/71 L 09/07/24 17:00 73 27 H 93 09/07/24 16:33 70 18 96 09/07/24 16:30 106/62 09/07/24 16:18 73 20 97 09/07/24 16:15 72 21 96 09/07/24 16:15 99/65 L 09/07/24 16:12 71 23 95 09/07/24 16:00 72 09/07/24 16:00 95/61 L 09/07/24 16:00 95/61 L 09/07/24 15:51 71 18 96 09/07/24 15:45 70 17 94 09/07/24 15:45 104/57 L 09/07/24 15:45 104/57 L 09/07/24 15:30 101/55 L 09/07/24 15:24 61 20 91 09/07/24 15:15 102/61 09/07/24 15:15 102/61 09/07/24 15:15 71 20 95 09/07/24 15:06 72 19 95 09/07/24 15:00 84/65 L 09/07/24 14:45 105/60 09/07/24 14:42 72 18 95 09/07/24 14:30 100/61 09/07/24 14:30 71 25 H 95 09/07/24 14:15 100/58 L 09/07/24 14:12 70 22 95 09/07/24 14:06 59 L 23 94 09/07/24 14:01 99/57 L 09/07/24 14:00 70 20 93 09/07/24 13:30 99/60 L 09/07/24 13:03 63 18 97 09/07/24 13:00 100/64 09/07/24 12:54 67 18 95 09/07/24 12:45 104/58 L 09/07/24 12:36 70 19 95 09/07/24 12:30 53 L 22 95 09/07/24 12:15 109/59 L 09/07/24 12:15 65 23 96 09/07/24 12:00 110/56 L 09/07/24 11:54 70 20 96 09/07/24 11:45 110/60 09/07/24 11:30 102/59 L 09/07/24 11:15 104/62 09/07/24 11:09 60 19 96 09/07/24 11:00 71 22 95 09/07/24 11:00 106/63 09/07/24 11:00 106/63 09/07/24 11:00 106/63 O2 Del Method 09/08/24 09:58 Room Air 09/08/24 09:55 Room Air 09/08/24 09:00 09/08/24 09:00 09/08/24 08:51 Room Air 09/08/24 08:48 09/08/24 08:39 09/08/24 08:21 09/08/24 08:03 09/08/24 08:00 09/08/24 08:00 09/08/24 07:39 Room Air 09/08/24 07:00 09/08/24 07:00 09/08/24 06:03 09/08/24 06:00 09/08/24 05:54 09/08/24 05:00 09/08/24 05:00 Room Air 09/08/24 04:15 09/08/24 03:30 09/08/24 03:24 09/08/24 03:00 09/08/24 03:00 09/08/24 03:00 09/08/24 03:00 09/08/24 02:51 09/08/24 02:42 09/08/24 02:15 09/08/24 02:00 09/08/24 02:00 09/08/24 02:00 09/08/24 01:51 09/08/24 01:21 09/08/24 01:00 09/08/24 01:00 09/08/24 01:00 09/08/24 01:00 09/08/24 01:00 09/08/24 00:54 09/08/24 00:33 09/08/24 00:15 09/08/24 00:00 09/08/24 00:00 09/08/24 00:00 09/08/24 00:00 09/08/24 00:00 09/07/24 23:52 09/07/24 23:51 09/07/24 23:30 09/07/24 23:15 09/07/24 23:03 09/07/24 23:00 09/07/24 23:00 09/07/24 22:48 09/07/24 22:45 09/07/24 22:33 09/07/24 22:15 09/07/24 22:09 09/07/24 21:45 09/07/24 21:12 09/07/24 21:00 09/07/24 20:30 09/07/24 20:30 Room Air 09/07/24 20:06 09/07/24 20:00 09/07/24 20:00 Room Air 09/07/24 19:30 Room Air 09/07/24 19:29 09/07/24 19:24 09/07/24 18:44 09/07/24 18:42 09/07/24 18:30 09/07/24 18:24 09/07/24 18:00 09/07/24 18:00 09/07/24 18:00 09/07/24 17:39 09/07/24 17:30 09/07/24 17:27 09/07/24 17:00 09/07/24 17:00 09/07/24 16:33 09/07/24 16:30 09/07/24 16:18 09/07/24 16:15 09/07/24 16:15 09/07/24 16:12 09/07/24 16:00 09/07/24 16:00 09/07/24 16:00 09/07/24 15:51 Room Air 09/07/24 15:45 09/07/24 15:45 09/07/24 15:45 09/07/24 15:30 09/07/24 15:24 09/07/24 15:15 09/07/24 15:15 09/07/24 15:15 09/07/24 15:06 09/07/24 15:00 09/07/24 14:45 09/07/24 14:42 09/07/24 14:30 09/07/24 14:30 09/07/24 14:15 09/07/24 14:12 09/07/24 14:06 09/07/24 14:01 09/07/24 14:00 Room Air 09/07/24 13:30 09/07/24 13:03 09/07/24 13:00 09/07/24 12:54 Room Air 09/07/24 12:45 09/07/24 12:36 09/07/24 12:30 09/07/24 12:15 09/07/24 12:15 09/07/24 12:00 09/07/24 11:54 09/07/24 11:45 09/07/24 11:30 09/07/24 11:15 09/07/24 11:09 09/07/24 11:00 Room Air 09/07/24 11:00 09/07/24 11:00 09/07/24 11:00 Transfer of Care Handoff Completed per policy Notes Mental Status: alert / awake / arousable Patient Amnestic to Procedure: Yes Nausea / Vomiting: adequately controlled Pain: adequately controlled Airway Patency, RR, SpO2: stable & adequate BP & HR: stable & adequate Hydration State: stable & adequate Anesthetic Complications: no major complications apparent
--- NOTE | 2024-09-08 13:26 | Hospitalist Progress Note ---
Date of Service September 08, 2024 Assessment & Plan (1) Acute lactic acidosis: (2) Acute hypoxemic respiratory failure: (3) Elevated brain natriuretic peptide (BNP) level: (4) Acute kidney injury superimposed on stage 3b chronic kidney disease: (5) Elevated liver function tests: (6) Elevated troponin level: (7) Hyperkalemia: Plan Junior Garcia is an 84-year-old male past medical history of DM type II, diabetic neuropathy, diabetic peripheral angiopathy, gouty arthropathy, hypothyroidism, BHUPINDER/nocturnal hypoxemia intolerant to CPAP, CKD stage IIIb, HTN, HLD, left arm DVT in 2017, paroxysmal atrial fibrillation anticoagulated with Eliquis, ventricular tachycardia s/p pacer-defibrillator placement in 2019, CAD s/p CABG x 3 in 2015, ischemic cardiomyopathy, systolic CHF, peripheral artery disease, left vertebral artery stenosis, atrial septal aneurysm, prostate cancer [currently receiving radiation + Casodex + Firmagon], 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 Sepsis Strep Bacteremia Possible Pneumonia Foot wound Acute metabolic Encephalopathy patient presented unresponsive and confused lactic acidosis noted, Procalcitonin elevated at 1.93 MRSA nares negative Respiratory bio fire panel negative UA unremarkable, no reflex urine culture Blood cultures 4 out of 4 bottles currently growing group B strep agalactiae chest x-ray noting cardiomegaly with pulmonary edema and small pleural effusions CT chest concerning for pneumonia CT abdomen pelvis concerning for cystitis Patient with left foot wound On IV Ancef at this time Repeat blood cultures in 48 hours- pending now ID consult- awaiting No more confusion, does not have any fever and/or chills and the white count is normalized Continue with current antibiotic of cefazolin twice daily Remains medically stable with low blood pressure requiring Levophed No fever and no chills and does not have any respiratory symptoms at rest Status post negative JOSE He has been feeling much better and does not have any more confusion He will be transferred to telemetry unit for continuation of care Persistent hypotension Has been requiring pressor support with Levophed Also getting Lasix to decrease edema His blood pressure is maintained without pressor agents Acute hypoxic respiratory failure Possible pneumonia Pulmonary edema Pleural Effusions patient initially requiring oxygen supplementation X-ray and CT concerning for fluid overload Respiratory bio fire negative as noted above VBG noting pH of 7.34, pCO2 of 33 and bicarb of [address] was concerning for pneumonia Was initially on cefepime and Flagyl, transition to Ancef currently Patient currently on room air and improved Has been getting Levophed to maintain blood pressure and Lasix to continue diuresis as per the clinical trials assistant and the decorator hand Has been saturating normally on room air Acute Kidney Injury on CKD Creatinine baseline of 1.4-1.6 Creatinine has been trending up to 3.14 Nephrology consulted, appreciate recs Avoid nephrotoxic medications when able Monitor renal function closely -renal function has been improving gradually with BUN and creatinine today 60/2.9 on Kidney function is getting better and it is 54/2.54 as of 09/08/2024 Transaminitis Ascites Liver enzymes significantly elevated likely secondary to hypotension with shock liverer Ultrasound revealed enlarged liver at 19.47 cm with coarse texture and thickening of KANIKA portal tract suggestive of cirrhosis GI consulted, appreciate recs Continue to monitor LFTs CT abdomen pelvis noting unremarkable liver Hepatitis panel ordered in the ICU- hepatitis panel is negative Continue to monitor LFTs- continues to improve Demand ischemia Acute on Chronic Systolic and Diastolic Congestive Heart Failure Trops elevated but flat in the 30-40 range EKG ruled out for acute ischemia by interventional cardiology Echo with noted EF of 25 to 29%, diastolic grade 3 dysfunction septal wall abnormalities posterior wall akinetic with hypokinesis of the inferior wall, left atrium severely dilated, moderate MR, moderate TR and mildly elevated pulmonary artery systolic pressure Chest imaging concerning for cardiomegaly with pulmonary edema and small pleural effusions. Noted large volume ascites and anasarca Has been getting diuresis with Levophed on board to maintain blood pressure Cardiology consulted, appreciate further recs LFTs are improving gradually Atrial fibrillation Holding Eliquis for now Hold metoprolol succinate in setting of hypotension and sepsis Amiodarone also on hold Resume both as able Likely restart Eliquis Hyperkalemia K+ 5.7 on initial laboratory evaluation Treated with calcium gluconate/insulin in ED Continue to monitor and manage PRN Anemia Thrombocytopenia Hemoglobin and platelet levels noted to be low Holding home Eliquis Continue home Plavix Hypothyroidism continue levothyroxine. CAD/HLD Continue statin, Plavix Prostate Cancer Follows with Dr. Alejandro [[facility]] Currently undergoing radiation w/ [facility] + chemotherapy Continue Casodex DVT Prophylaxis: SCDs/TEDs for now. Code Status: DNR/DNI - No Resuscitation PCP: Sandra Judge MD Disposition: PT/OT for further recs once medically stable Admission and Anticipated Discharge Date Admission Date: September 04, 2024 Subjective 09-06 The patient was seen and examined in ICU He has been feeling worse today with more weakness and tiredness Denies any chest or abdominal pain and no nausea and or vomiting No fever and/or chills 09/07/2024 The patient was seen and examined in ICU He remains generally weak and lethargic and is still requiring intravenous Levophed to maintain blood pressure Has been getting furosemide to reduce fluid overload 09/08/2024 Patient was seen and examined in ICU He is a status post JOSE which was negative for any vegetations He has been feeling much better and has not been requiring any Levophed to maintain blood pressure Remains otherwise asymptomatic Review of Systems Review of Systems: All systems reviewed are unremarkable except as noted below Physical Exam Physical Exam: Lying in bed without any acute distress Constitutional: well developed, well nourished, + ill appearing and + obese Eyes: PERRL, conjunctivae normal, anicteric sclerae ENMT: external ear and nose normal, oropharynx normal Neck: trachea midline, no thyromegaly Respiratory: no respiratory distress Auscultation: lungs clear to auscultation bilaterally Cardiovascular: Rate/Rhythm: regular rate and regular rhythm; not tachycardic Heart Sounds: normal S1 and normal S2; no murmur Extremities: + edema ( trace edema bilaterally) Gastrointestinal (Abdomen): Inspection/Auscultation: normal bowel sounds; abdomen not distended Percussion/Palpation: abdomen soft; abdomen nontender Neurologic: normal touch/pain/proprioception and moves all extremities; no focal motor deficits Lymphatic: no cervical or axillary lymphadenopathy Results & Data Results & Data Vital Signs (Past 12 Hours) Vital Signs Temp Pulse Pulse Resp BP BP Pulse Ox 09/08/24 11:00 62 92 09/08/24 11:00 106/54 L 09/08/24 10:48 71 20 94 09/08/24 10:45 102/51 L 09/08/24 10:33 70 09/08/24 10:30 70 93 09/08/24 10:30 108/45 L 09/08/24 10:27 70 09/08/24 10:20 106/44 L 09/08/24 10:10 93/48 L 09/08/24 10:09 55 L 94 09/08/24 10:00 62 18 94 09/08/24 09:58 62 14 93/49 L 95 09/08/24 09:55 70 14 81/48 L 95 09/08/24 09:49 98/51 L 09/08/24 09:45 97/51 L 09/08/24 09:43 78/50 L 09/08/24 09:42 69 96 09/08/24 09:40 86/53 L 09/08/24 09:39 69 97 09/08/24 09:38 98/55 L 09/08/24 09:36 70 12 97 09/08/24 09:35 93/53 L 09/08/24 09:33 70 99 09/08/24 09:32 100/58 L 09/08/24 09:30 91/55 L 09/08/24 09:27 108/60 09/08/24 09:27 72 98 09/08/24 09:23 106/53 L 09/08/24 09:18 108/53 L 09/08/24 09:18 67 13 100 09/08/24 09:15 96/50 L 09/08/24 09:13 104/48 L 09/08/24 09:07 106/54 L 09/08/24 09:00 94/43 L 09/08/24 09:00 94/43 L 09/08/24 08:51 70 16 95 09/08/24 08:48 57 L 23 93 09/08/24 08:39 59 L 19 96 09/08/24 08:21 70 22 94 09/08/24 08:03 72 13 93 09/08/24 08:00 09/08/24 08:00 101/52 L 09/08/24 08:00 71 09/08/24 07:39 63 18 93 09/08/24 07:00 85/41 L 09/08/24 07:00 59 L 18 88 L 09/08/24 06:03 62 15 94 09/08/24 06:00 103/56 L 09/08/24 05:54 64 15 95 09/08/24 05:00 70 18 98 09/08/24 05:00 70 14 102/58 L 98 09/08/24 04:15 56 L 18 95 09/08/24 03:30 62 15 94 09/08/24 03:24 57 L 20 94 09/08/24 03:00 97/52 L 09/08/24 03:00 97/52 L 09/08/24 03:00 97/52 L 09/08/24 03:00 70 21 93 09/08/24 02:51 70 18 92 09/08/24 02:42 65 15 94 09/08/24 02:15 70 19 92 09/08/24 02:00 60 21 94 09/08/24 02:00 36.9 C 106/53 L 09/08/24 02:00 106/53 L 09/08/24 01:51 70 21 93 O2 Del Method 09/08/24 11:00 09/08/24 11:00 09/08/24 10:48 09/08/24 10:45 09/08/24 10:33 09/08/24 10:30 09/08/24 10:30 09/08/24 10:27 09/08/24 10:20 09/08/24 10:10 09/08/24 10:09 09/08/24 10:00 09/08/24 09:58 Room Air 09/08/24 09:55 Room Air 09/08/24 09:49 09/08/24 09:45 09/08/24 09:43 09/08/24 09:42 09/08/24 09:40 09/08/24 09:39 09/08/24 09:38 09/08/24 09:36 09/08/24 09:35 09/08/24 09:33 09/08/24 09:32 09/08/24 09:30 09/08/24 09:27 09/08/24 09:27 09/08/24 09:23 09/08/24 09:18 09/08/24 09:18 09/08/24 09:15 09/08/24 09:13 09/08/24 09:07 09/08/24 09:00 09/08/24 09:00 09/08/24 08:51 Room Air 09/08/24 08:48 09/08/24 08:39 09/08/24 08:21 09/08/24 08:03 09/08/24 08:00 Room Air 09/08/24 08:00 09/08/24 08:00 09/08/24 07:39 Room Air 09/08/24 07:00 09/08/24 07:00 09/08/24 06:03 09/08/24 06:00 09/08/24 05:54 09/08/24 05:00 09/08/24 05:00 Room Air 09/08/24 04:15 09/08/24 03:30 09/08/24 03:24 09/08/24 03:00 09/08/24 03:00 09/08/24 03:00 09/08/24 03:00 09/08/24 02:51 09/08/24 02:42 09/08/24 02:15 09/08/24 02:00 09/08/24 02:00 09/08/24 02:00 09/08/24 01:51 Laboratory Results Short CBC 09/08/24 Range/Units 04:01 WBC 5.27 (4.8-10.8) K/ul Hgb 7.9 L (14.0-18.0) g/dl Hct 23.3 L (42.0-52.0) % Plt Count 105 L (130-400) K/uL BMP 09/08/24 04:01 Sodium 136 Potassium 3.5 Chloride 101 Carbon Dioxide 27 BUN 54 H Creatinine 2.54 H D Glucose 82 Calcium 7.9 L Liver Function 09/08/24 Range/Units 04:01 Total Bilirubin 1.8 H (0.2-1.0) mg/dl AST 157 H (13-39) U/L ALT 51 (7-52) U/L Alkaline Phosphatase 108 H (34-104) U/L Albumin 2.8 L (3.4-5.0) gm/dl Medications Administered Current Inpatient Medications Apixaban (Apixaban 2.5 Mg Tab) 2.5 mg PO BID MELANI Stop: 10/08/24 20:59 Bicalutamide (Bicalutamide 50 Mg Tab) 50 mg PO DAILY MELANI Stop: 10/05/24 08:59 Last Admin: 09/06/24 08:06 Dose: 50 mg Clopidogrel Bisulfate (Clopidogrel Bisulfate 75 Mg Tab) 75 mg PO DAILY MELANI Stop: 10/05/24 08:59 Last Admin: 09/08/24 08:33 Dose: 75 mg Dextrose (Dextrose 50% 50 Ml Syringe) 25 - 50 ml IV UD PRN; Protocol PRN Reason: Hypoglycemia Protocol Stop: 10/06/24 07:01 Fidaxomicin (Fidaxomicin 200 Mg Tab) 200 mg PO BID MELANI Stop: 09/16/24 22:59 Last Admin: 09/08/24 08:33 Dose: 200 mg Furosemide (Furosemide 40 Mg/4 Ml Vial) 30 mg IV TID@0600,1200,1800 MELANI Stop: 10/07/24 12:59 Last Admin: 09/08/24 12:29 Dose: 30 mg Glucagon (Glucagon For Inj 1 Mg Vial) 1 mg SQ UD PRN; Protocol PRN Reason: Hypoglycemia Protocol Stop: 10/06/24 07:01 Glucose (Glucose 40% Gel 15 Gm Tube) 15 - 30 gm PO UD PRN; Protocol PRN Reason: Hypoglycemia Protocol Stop: 10/06/24 07:01 Glucose (Glucose 10 Tab/Tube) 4 - 8 tab PO UD PRN; Protocol PRN Reason: Hypoglycemia Protocol Stop: 10/06/24 07:01 Cefazolin Sodium (Ancef 2000mg) 2,000 mg in 15 mls @ 3.75 mls/min IV Q12 MELANI; Protocol Stop: 09/19/24 17:59 Last Admin: 09/08/24 08:33 Dose: 3.75 mls/min Magnesium Sulfate/Dextrose (Magnesium Sulfate / D5w) 1 gm in 100 mls @ 50 mls/hr IV Q2H MELANI Stop: 09/08/24 14:14 Last Admin: 09/08/24 12:29 Dose: 50 mls/hr Insulin Aspart (Insulin Aspart Per Unit Charge) 0 units SC Q6 MELANI Stop: 10/06/24 07:29 Last Admin: 09/08/24 05:15 Dose: Not Given Levothyroxine Sodium (Levothyroxine Sodium 112 Mcg Tablet) 112 mcg PO DAILYBB MELANI Stop: 10/05/24 06:29 Last Admin: 09/08/24 05:04 Dose: 112 mcg Miscellaneous (Carbohydrates For Hypoglycemia ) 15 - 30 gm PO UD PRN PRN Reason: Hypoglycemia Protocol Stop: 10/06/24 07:01 Potassium Chloride (Potassium Chloride Crtab 20 Meq Tabcr) 20 meq PO BID MELANI Stop: 10/07/24 10:59 Last Admin: 09/08/24 08:33 Dose: 20 meq Tamsulosin HCl (Tamsulosin Hcl 0.4 Mg Cap) 0.4 mg PO DAILY [facility] Stop: 10/05/24 08:59 Last Admin: 09/05/24 08:51 Dose: Not Given Nurses cannot give any Tylenol order as well they cannot give Tylenol so bad
--- NOTE | 2024-09-08 17:06 | Nephrology Progress Note ---
Date of Service September 08, 2024 Assessment & Plan (1) Acute kidney injury superimposed on stage 3b chronic kidney disease: Plan: plateau'd Stage 3 oliguric VENITA on CKD 3 (CKD 3 neither A nor B) based on UOP at admission; creatinine 2.9 on admission and essentially plateau'd, not unexpected in the setting of sepsis and HF. he had 25 mL UOP [id number]; then 50 mL next 2 hrs; then 250 mL [id number] on first day after admission. life threatening multiorgan failure on presentation w/ respiratory, cardiac, renal, liver failure >> ischemic ATN whether from septicemia or cardiorenal w/ acute systolic heart failure. baseline creatinine about 1.6-1.7 w/ 143 mg/gm albuminuria. creatinine plateau'd; UOP responsive to lasix; still pressor dependent; transaminases slightly better >>>continue lasix to 30 mg IV tid timed so as not to disrupt sleep; responding well but may need to back down on lasix soon (4.2L negative on admssion) >>>continue po K 20 mEq bid > but also gave 40 mEq po x 2 doses q2h >>>consider removing swenson after JOSE done and pressors off -daily bmp to continue -with arrhythmia hx /meds too risk for dopamine -strict I/O -continue BP support to goal MAP 65 or better > pressors as needed; last used afternoon 09/07 -daily BMP -no current indication for renal replacement therapy (2) Acute exacerbation of CHF (congestive heart failure): Plan: combined and severe systolic/diastolic HF w/ EF 30-35% per OP cardiology notes fall 2023. f/u TTE today slightly worse than that baseline; ventricular dysfunction on JOSE looks L sided not R -09/06 started IV lasix > negative 3.1L today -f/u cardiology recs -accompanied by congestive hepatopathy (again slightly improved today) (3) Streptococcemia: Plan: 11/24 blood cultures 09/04 w/ Strep agalactiae; 09/06 repeat cxs pending still neg 48 hrs out. cefepime > cefazolin suspect soft tissue etiology; not urine Admission and Anticipated Discharge Date Admission Date: September 04, 2024 Subjective delayed entry for pt seen late AM just after JOSE which showed no vegetations on valves or AICD leads. pt somnolent after procedure Review of Systems 2 Review of Systems: All systems reviewed & are unremarkable except as noted in Subjective Physical Exam 2 Constitutional: well developed, well nourished, average body habitus and + lethargic (recovering from anesthesia); no acute distress ENMT: Mouth: + dry oral mucous membranes Respiratory: normal respiratory effort; no respiratory distress, no labored breathing, no cough, not tachypneic, expiratory phase not prolonged and no paradoxical thoraco-abdominal movemnt Auscultation: + diminished lung sounds Cardiovascular: RRR, no murmur, no edema Heart Sounds: + murmur E xtremities: + edema (trace dependent, not peripheral) Gastrointestinal (Abdomen): Inspection/Auscultation: normal bowel sounds P ercussion/Palpation: abdomen soft; abdomen nontender Musculoskeletal: Extremities: strength 5/5 throughout Skin: no rashes, warm and dry (L foot not examined) Results & Data Vital Signs (Past 12 Hours) Vital Signs Temp Pulse Pulse Resp BP BP Pulse Ox 09/08/24 16:42 36.6 C 09/08/24 16:00 70 16 93 09/08/24 16:00 70 09/08/24 15:00 98/54 L 09/08/24 15:00 98/54 L 09/08/24 14:57 62 97 09/08/24 14:06 70 92 09/08/24 13:00 94/57 L 09/08/24 13:00 94/57 L 09/08/24 12:57 70 95 09/08/24 12:30 70 96 09/08/24 12:30 116/49 L 09/08/24 12:15 107/61 09/08/24 12:03 55 L 09/08/24 12:01 87/64 L 09/08/24 12:00 65 94 09/08/24 11:45 113/54 L 09/08/24 11:30 107/58 L 09/08/24 11:24 67 95 09/08/24 11:15 100/52 L 09/08/24 11:15 54 L 94 09/08/24 11:00 62 92 09/08/24 11:00 106/54 L 09/08/24 10:48 71 20 94 09/08/24 10:45 102/51 L 09/08/24 10:33 70 09/08/24 10:30 70 93 09/08/24 10:30 108/45 L 09/08/24 10:27 70 09/08/24 10:20 106/44 L 09/08/24 10:10 93/48 L 09/08/24 10:09 55 L 94 09/08/24 10:00 62 18 94 09/08/24 09:58 62 14 93/49 L 95 09/08/24 09:55 70 14 81/48 L 95 09/08/24 09:49 98/51 L 09/08/24 09:45 97/51 L 09/08/24 09:43 78/50 L 09/08/24 09:42 69 96 09/08/24 09:40 86/53 L 09/08/24 09:39 69 97 09/08/24 09:38 98/55 L 09/08/24 09:36 70 12 97 09/08/24 09:35 93/53 L 09/08/24 09:33 70 99 09/08/24 09:32 100/58 L 09/08/24 09:30 91/55 L 09/08/24 09:27 108/60 09/08/24 09:27 72 98 09/08/24 09:23 106/53 L 09/08/24 09:18 108/53 L 09/08/24 09:18 67 13 100 09/08/24 09:15 96/50 L 09/08/24 09:13 104/48 L 09/08/24 09:07 106/54 L 09/08/24 09:00 94/43 L 09/08/24 09:00 94/43 L 09/08/24 08:51 70 16 95 09/08/24 08:48 57 L 23 93 09/08/24 08:39 59 L 19 96 09/08/24 08:21 70 22 94 09/08/24 08:03 72 13 93 09/08/24 08:00 09/08/24 08:00 101/52 L 09/08/24 08:00 71 09/08/24 07:39 63 18 93 09/08/24 07:00 85/41 L 09/08/24 07:00 59 L 18 88 L 09/08/24 06:03 62 15 94 09/08/24 06:00 103/56 L 09/08/24 05:54 64 15 95 09/08/24 05:00 70 18 98 09/08/24 05:00 70 14 102/58 L 98 O2 Del Method 09/08/24 16:42 09/08/24 16:00 Room Air 09/08/24 16:00 09/08/24 15:00 09/08/24 15:00 09/08/24 14:57 09/08/24 14:06 09/08/24 13:00 09/08/24 13:00 09/08/24 12:57 09/08/24 12:30 09/08/24 12:30 09/08/24 12:15 09/08/24 12:03 09/08/24 12:01 09/08/24 12:00 09/08/24 11:45 09/08/24 11:30 09/08/24 11:24 09/08/24 11:15 09/08/24 11:15 09/08/24 11:00 09/08/24 11:00 09/08/24 10:48 09/08/24 10:45 09/08/24 10:33 09/08/24 10:30 09/08/24 10:30 09/08/24 10:27 09/08/24 10:20 09/08/24 10:10 09/08/24 10:09 09/08/24 10:00 09/08/24 09:58 Room Air 09/08/24 09:55 Room Air 09/08/24 09:49 09/08/24 09:45 09/08/24 09:43 09/08/24 09:42 09/08/24 09:40 09/08/24 09:39 09/08/24 09:38 09/08/24 09:36 09/08/24 09:35 09/08/24 09:33 09/08/24 09:32 09/08/24 09:30 09/08/24 09:27 09/08/24 09:27 09/08/24 09:23 09/08/24 09:18 09/08/24 09:18 09/08/24 09:15 09/08/24 09:13 09/08/24 09:07 09/08/24 09:00 09/08/24 09:00 09/08/24 08:51 Room Air 09/08/24 08:48 09/08/24 08:39 09/08/24 08:21 09/08/24 08:03 09/08/24 08:00 Room Air 09/08/24 08:00 09/08/24 08:00 09/08/24 07:39 Room Air 09/08/24 07:00 09/08/24 07:00 09/08/24 06:03 09/08/24 06:00 09/08/24 05:54 09/08/24 05:00 09/08/24 05:00 Room Air Laboratory Results 09/08/24 04:01 09/08/24 04:01 (2) Acute exacerbation of CHF (congestive heart failure) Heart failure type: systolic Qualified Code(s): I50.23 - Acute on chronic systolic (congestive) heart failure
[2024-09-08] MEDS: APIXABAN 2.5 MG TAB PO SCH (20:27)
[2024-09-09 08:06] LABS: Basophils # (auto) 0.01 K/uL (0.00-0.20); Basophils % (auto) 0.2 %; Eosinophils % (auto) 3.1 %; Hematocrit (blood only) 25.2 % (42.0-52.0); Hemoglobin 8.6 g/dl (14.0-18.0); Immature Granulocytes % (auto) 1.5 %; Lymphocytes # (auto) 0.36 K/uL (1.20-3.40); Lymphocytes % (auto) 5.5 %; Mean Corpuscular Hemoglobin 26.3 pg (25.0-34.0); Mean Corpuscular Hgb Conc 34.1 g/dL (32.0-36.0); Mean Corpuscular Volume 77.1 fL (80.0-100.0); Mean Platelet Volume 9.4 fL (9.4-12.4); Monocytes # (auto) 0.34 K/uL (0.11-0.59); Monocytes % (auto) 5.2 %; Neutrophils % (auto) 84.5 %; Platelet Count 122 K/uL (130-400); RDW Coefficient of Variation 22.6 % (11.5-14.5); RDW Standard Deviation 61.2 fL (36.4-46.3); Red Blood Count 3.27 M/uL (4.70-6.10); White Blood Count 6.51 K/ul (4.8-10.8)
[2024-09-09 08:28] LABS: BUN Creatinine Ratio 23.1 (10-20); Calcium 8.2 mg/dl (8.6-10.3); Creatinine Clr Calc Pharmacy 28.2 ml/min; Potassium 3.5 mmol/L (3.5-5.1)
[2024-09-09 08:51] LABS: Anisocytosis Present; Hypochromasia Present; Polychromasia 1+
--- NOTE | 2024-09-09 09:23 | Electrocardiogram Report ---
Test Reason : Blood Pressure : */* mmHG Vent. Rate : 65 BPM Atrial Rate : 0 BPM P-R Int : * ms QRS Dur : 164 ms QT Int : 476 ms P-R-T Axes : * -56 117 degrees QTcB Int : 495 ms Junctional rhythm with intermittent ventricular capture and apparent pacemaker undersensing Left axis deviation Left bundle branch block Abnormal ECG Confirmed by Andrade Wheatley ([id number] on 09/09/2024 9:23:50 AM Referred By: REFERRED SELF Confirmed By: Andrade Wheatley
--- NOTE | 2024-09-09 09:27 | Cardiology Progress Note ---
Date of Service September 09, 2024 Assessment & Plan (1) Sepsis: (2) Acute systolic heart failure: (3) VENITA (acute kidney injury): Plan 54-year-old male with acute on chronic heart failure with reduced ejection fraction due to ischemic cardiomyopathy. Complex cardiac history. Patient with underlying immunocompromised state in the setting of prostate cancer with radiation therapy. CT of the chest performed on admission revealed possible left lower lobe pneumonia as well as small bilateral pleural effusions and ascites. 2/2 blood cultures obtained on presentation 09/04/2024 have yielded findings of strep agalactiae. Repeat cultures 09/06/2024 without growth. Possible source of infection is left foot wound, no osteomyelitis on x-ray. - JOSE 09/08/24 with no valvular vegetation. AICD leads well visualized and without vegetation. 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 Amiodarone remains on hold as LFTs improved. - antibiotics per primary - continue to monitor on telemetry Case discussed with supervising physician, further recommendations per Dr. Price. I spent a total of 20 minutes on the date of service in preparation, delivery, and documentation of the care provided to this patient excluding any time spent in the performance of separately billed services. This visit was a split-shared visit with the substantial portion of the decision making performed by the supervising telephone surveyor/billing provider. Admission and Anticipated Discharge Date Admission Date: September 04, 2024 Supervising Physician Co-Signing Physician Notes I spent a total of 30 minutes on the date of service in preparation, delivery, and documentation of the care provided to this patient, excluding any time spent in the performance of separately billed services. I have personally performed a history and physical examination on the patient. I have reviewed the advance practitioner's documentation, and I agree with, and take responsibility for the plan of care. Subjective Patient seen today in follow up. Has no cardiac complaints. Denies chest pain, shortness of breath, lightheadedness. Unsure if edema is any better. Telemetry with paced rhythm in 60s. Review of Systems Review of Systems: CONSTITUTIONAL: No change in weight, No weakness, No fatigue and No fevers, No sweats or chills. PULMONARY: No cough, sputum, or hemoptysis, No wheezing, No shortness of breath and No recent change in breathing. CARDIOVASCULAR: No chest pain, No dyspnea on exertion, No edema, No palpitations and No syncope. GASTROINTESTINAL: No abdominal pain, No change in bowel habits, No significant heartburn, No nausea, No vomiting, No diarrhea, No constipation, No blood in stools or black tarry stools. No dysphagia. HEMATOLOGIC: No abnormal bleeding and No bruising. NEUROLOGICAL: Normal balance, No headaches and No weakness. Physical Exam Physical Exam: General: No acute distress. A+Ox3. HEENT: Normocephalic. Atraumatic. PERRL. EOMI. Conjunctiva and sclera clear. NECK: No carotid bruits. No JVD. Carotid upstrokes are brisk. Heart: RRR. S1 and S2 noted. No murmur. No rubs or gallops. PMI non displaced. Lungs: Clear to auscultation. No wheezes. No rhonchi. No rales. Abdomen: Normal bowel sounds. Soft. Nontender. No masses or organomegaly. No abdominal bruits. Extremities: No edema. No clubbing or cyanosis. Pulses: radial=2/4, posterior tibial=2/4, dorsalis pedis = 2/4. NEURO: No focal deficits. PSYCH: Appropriate affect and insight. Results & Data Vital Signs (Past 12 Hours) Vital Signs Temp Pulse Pulse Resp BP BP Pulse Ox 09/09/24 07:49 67 09/09/24 07:18 36.6 C 69 17 100/51 L 94 09/09/24 03:18 36.7 C 09/09/24 03:00 94/51 L 09/09/24 03:00 71 16 97 09/09/24 00:00 71 09/08/24 23:27 36.6 C 09/08/24 23:00 99/53 L 09/08/24 22:42 62 18 94 O2 Del Method 09/09/24 07:49 09/09/24 07:18 Room Air 09/09/24 03:18 09/09/24 03:00 09/09/24 03:00 09/09/24 00:00 09/08/24 23:27 09/08/24 23:00 09/08/24 22:42 Laboratory Results CBC 09/09/24 Range/Units 07:48 WBC 6.51 (4.8-10.8) K/ul RBC 3.27 L (4.70-6.10) M/uL Hgb 8.6 L (14.0-18.0) g/dl Hct 25.2 L (42.0-52.0) % Plt Count 122 L (130-400) K/uL Neut # (Auto) 5.50 (1.40-6.50) K/uL Lymph # (Auto) 0.36 L (1.20-3.40) K/uL [place] # (Auto) 0.34 (0.11-0.59) K/uL Eos # (Auto) 0.20 (0.00-0.50) K/uL Baso # (Auto) 0.01 (0.00-0.20) K/uL Comprehensive Metabolic Panel 09/09/24 Range/Units 07:48 Sodium 136 (136-145) mmol/L Potassium 3.5 (3.5-5.1) mmol/L Chloride 100 (98-107) mmol/L Carbon Dioxide 27 (21-32) mmol/L BUN 52 H (6-23) mg/dl Creatinine 2.25 H (0.6-1.4) mg/dl Glucose 126 H (70-99(Fasting)) mg/dl Calcium 8.2 L (8.6-10.3) mg/dl Intake and Output 09/08/24 09/09/24 09/09/24 22:59 06:59 14:59 Intake Total 500 / 700 Output Total 500 / 1999 550 / 1999 Balance -500 / -1300 -50 / -1300 Intake: Oral 500 / 500 Output: Urine Amount (Catheter) 1999 550 / 1999 Nichols/Indwelling 1999 / 1999 Other: Weight 90.7 kg Weight Measurement Method Built in [facility] (1) Sepsis Sepsis acute organ dysfunction status: with acute organ dysfunction Sepsis type: Streptococcus group B Severe sepsis acute organ dysfunction type: unspecified Severe sepsis shock status: unspecified Qualified Code(s): A40.1 - Sepsis due to streptococcus, group B; R65.20 - Severe sepsis without septic shock
--- NOTE | 2024-09-09 14:17 | Hospitalist Progress Note ---
Date of Service September 09, 2024 Assessment & Plan (1) Acute lactic acidosis: (2) Acute hypoxemic respiratory failure: (3) Elevated brain natriuretic peptide (BNP) level: (4) Acute kidney injury superimposed on stage 3b chronic kidney disease: (5) Elevated liver function tests: (6) Elevated troponin level: (7) Hyperkalemia: Plan Junior Garcia is an 84-year-old male past medical history of DM type II, diabetic neuropathy, diabetic peripheral angiopathy, gouty arthropathy, hypothyroidism, BHUPINDER/nocturnal hypoxemia intolerant to CPAP, CKD stage IIIb, HTN, HLD, left arm DVT in 2017, paroxysmal atrial fibrillation anticoagulated with Eliquis, ventricular tachycardia s/p pacer-defibrillator placement in 2018, CAD s/p CABG x 3 in 2015, ischemic cardiomyopathy, systolic CHF, peripheral artery disease, left vertebral artery stenosis, atrial septal aneurysm, prostate cancer [currently receiving radiation + Casodex + Firmagon], 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 Sepsis Strep Bacteremia Possible Pneumonia Foot wound Acute metabolic Encephalopathy patient presented unresponsive and confused lactic acidosis noted, Procalcitonin elevated at 1.93 MRSA nares negative Respiratory bio fire panel negative UA unremarkable, no reflex urine culture Blood cultures 4 out of 4 bottles currently growing group B strep agalactiae chest x-ray noting cardiomegaly with pulmonary edema and small pleural effusions CT chest concerning for pneumonia CT abdomen pelvis concerning for cystitis Patient with left foot wound On IV Ancef at this time Repeat blood cultures in 48 hours- pending now ID consult- awaiting No more confusion, does not have any fever and/or chills and the white count is normalized Continue with current antibiotic of cefazolin twice daily Remains medically stable with low blood pressure requiring Levophed No fever and no chills and does not have any respiratory symptoms at rest Status post negative JOSE He has been feeling much better and does not have any more confusion Feeling a lot better today but remains weak and denies any significant symptoms Waiting for ID evaluation Persistent hypotension Has been requiring pressor support with Levophed Also getting Lasix to decrease edema His blood pressure is maintained without pressor agents Blood pressure remains stable on the lower side at 99/62 Acute hypoxic respiratory failure Possible pneumonia Pulmonary edema Pleural Effusions patient initially requiring oxygen supplementation X-ray and CT concerning for fluid overload Respiratory bio fire negative as noted above VBG noting pH of 7.34, pCO2 of 33 and bicarb of [address] was concerning for pneumonia Was initially on cefepime and Flagyl, transition to Ancef currently Patient currently on room air and improved Has been getting Levophed to maintain blood pressure and Lasix to continue diur esis as per the automotive vehicle inspector and the technical training coordinator Has been saturating normally on room air Acute Kidney Injury on CKD Creatinine baseline of 1.4-1.6 Creatinine has been trending up to 3.14 Nephrology consulted, appreciate recs Avoid nephrotoxic medications when able Monitor renal function closely -renal function has been improving gradually with BUN and creatinine today 60/2.9 on Kidney function is getting better and it is 54/2.54 as of 09/08/2024 Kidney function has been stable and improving Transaminitis Ascites Liver enzymes significantly elevated likely secondary to hypotension with shock liverer Ultrasound revealed enlarged liver at 19.47 cm with coarse texture and thickening of KANIKA portal tract suggestive of cirrhosis GI consulted, appreciate recs Continue to monitor LFTs CT abdomen pelvis noting unremarkable liver Hepatitis panel ordered in the ICU- hepatitis panel is negative Continue to monitor LFTs- continues to improve Demand ischemia Acute on Chronic Systolic and Diastolic Congestive Heart Failure Trops elevated but flat in the 30-40 range EKG ruled out for acute ischemia by interventional cardiology Echo with noted EF of 25 to 29%, diastolic grade 3 dysfunction septal wall abnormalities posterior wall akinetic with hypokinesis of the inferior wall, left atrium severely dilated, moderate MR, moderate TR and mildly elevated pulmonary artery systolic pressure Chest imaging concerning for cardiomegaly with pulmonary edema and small pleural effusions. Noted large volume ascites and anasarca Has been getting diuresis with Levophed on board to maintain blood pressure Cardiology consulted, appreciate further recs LFTs are improving gradually Atrial fibrillation Holding Eliquis for now Hold metoprolol succinate in setting of hypotension and sepsis Amiodarone also on hold Resume both as able Likely restart Eliquis Hyperkalemia K+ 5.7 on initial laboratory evaluation Treated with calcium gluconate/insulin in ED Continue to monitor and manage PRN Anemia Thrombocytopenia Hemoglobin and platelet levels noted to be low Holding home Eliquis Continue home Plavix Hypothyroidism continue levothyroxine. CAD/HLD Continue statin, Plavix Prostate Cancer Follows with Dr. Alejandro [[facility]] Currently undergoing radiation / [facility] + chemotherapy Continue Casodex DVT Prophylaxis: SCDs/TEDs for now. Code Status: DNR/DNI - No Resuscitation PCP: Sandra Judge MD Disposition: PT/OT for further recs once medically stable Admission and Anticipated Discharge Date Admission Date: September 04, 2024 Subjective 09-06 The patient was seen and examined in ICU He has been feeling worse today with more weakness and tiredness Denies any chest or abdominal pain and no nausea and or vomiting No fever and/or chills 09/07/2024 The patient was seen and examined in ICU He remains generally weak and lethargic and is still requiring intravenous Levophed to maintain blood pressure Has been getting furosemide to reduce fluid overload 09/08/2024 Patient was seen and examined in ICU He is a status post JOSE which was negative for any vegetations He has been feeling much better and has not been requiring any Levophed to maintain blood pressure Remains otherwise asymptomatic 09/09/2024 The patient was seen and examined in telemetry unit He has been feeling much better and the blood pressure remains on the lower side at 99/62 No arrhythmias denies any significant symptoms Review of Systems Review of Systems: All systems reviewed and are unremarkable except as noted below Physical Exam Physical Exam: Lying in bed without any acute distress Constitutional: well developed, well nourished, + ill appearing and + obese Eyes: PERRL, conjunctivae normal, anicteric sclerae ENMT: external ear and nose normal, oropharynx normal Neck: trachea midline, no thyromegaly Respiratory: no respiratory distress Auscultation: lungs clear to auscultation bilaterally Cardiovascular: Rate/Rhythm: regular rate and regular rhythm; not tachycardic Heart Sounds: normal S1 and normal S2; no murmur Extremities: + edema ( trace edema bilaterally) Gastrointestinal (Abdomen): Inspection/Auscultation: normal bowel sounds; abdomen not distended Percussion/Palpation: abdomen soft; abdomen nontender Musculoskeletal: No acute arthritis involving any of the joint Neurologic: normal touch/pain/proprioception and moves all extremities; no focal motor deficits Lymphatic: no cervical or axillary lymphadenopathy Results & Data Results & Data Vital Signs (Past 12 Hours) Vital Signs Temp Pulse Pulse Resp BP BP Pulse Ox 09/09/24 10:57 36.4 C L 80 17 99/62 L 98 09/09/24 10:31 09/09/24 07:49 67 09/09/24 07:18 36.6 C 69 17 100/51 L 94 09/09/24 03:18 36.7 C 09/09/24 03:00 94/51 L 09/09/24 03:00 71 16 97 O2 Del Method 09/09/24 10:57 Room Air 09/09/24 10:31 Room Air 09/09/24 07:49 09/09/24 07:18 Room Air 09/09/24 03:18 09/09/24 03:00 09/09/24 03:00 Laboratory Results Short CBC 09/09/24 Range/Units 07:48 WBC 6.51 (4.8-10.8) K/ul Hgb 8.6 L (14.0-18.0) g/dl Hct 25.2 L (42.0-52.0) % Plt Count 122 L (130-400) K/uL BMP 09/09/24 07:48 Sodium 136 Potassium 3.5 Chloride 100 Carbon Dioxide 27 BUN 52 H Creatinine 2.25 H Glucose 126 H Calcium 8.2 L Medications Administered Current Inpatient Medications Apixaban (Apixaban 2.5 Mg Tab) 2.5 mg PO BID MELANI Stop: 10/08/24 20:59 Last Admin: 09/09/24 08:44 Dose: 2.5 mg Bicalutamide (Bicalutamide 50 Mg Tab) 50 mg PO DAILY MELANI Stop: 10/05/24 08:59 Last Admin: 09/06/24 08:06 Dose: 50 mg Clopidogrel Bisulfate (Clopidogrel Bisulfate 75 Mg Tab) 75 mg PO DAILY MELANI Stop: 10/05/24 08:59 Last Admin: 09/09/24 08:44 Dose: 75 mg Dextrose (Dextrose 50% 50 Ml Syringe) 25 - 50 ml IV UD PRN; Protocol PRN Reason: Hypoglycemia Protocol Stop: 10/06/24 07:01 Fidaxomicin (Fidaxomicin 200 Mg Tab) 200 mg PO BID MELANI Stop: 09/16/24 22:59 Last Admin: 09/09/24 08:49 Dose: 200 mg Furosemide (Furosemide 40 Mg/4 Ml Vial) 30 mg IV TID@0600,1200,1800 MELANI Stop: 10/07/24 12:59 Last Admin: 09/09/24 12:15 Dose: 30 mg Glucagon (Glucagon For Inj 1 Mg Vial) 1 mg SQ UD PRN; Protocol PRN Reason: Hypoglycemia Protocol Stop: 10/06/24 07:01 Glucose (Glucose 40% Gel 15 Gm Tube) 15 - 30 gm PO UD PRN; Protocol PRN Reason: Hypoglycemia Protocol Stop: 10/06/24 07:01 Glucose (Glucose 10 Tab/Tube) 4 - 8 tab PO UD PRN; Protocol PRN Reason: Hypoglycemia Protocol Stop: 10/06/24 07:01 Cefazolin Sodium (Ancef 2000mg) 2,000 mg in 15 mls @ 3.75 mls/min IV Q12 MELANI; Protocol Stop: 09/19/24 17:59 Last Admin: 09/09/24 08:44 Dose: 3.75 mls/min Insulin Aspart (Insulin Aspart Per Unit Charge) 0 units SC ACHS MELANI Stop: 10/08/24 05:59 Last Admin: 09/09/24 12:14 Dose: 3 units Levothyroxine Sodium (Levothyroxine Sodium 112 Mcg Tablet) 112 mcg PO DAILYBB MELANI Stop: 10/05/24 06:29 Last Admin: 09/09/24 05:37 Dose: 112 mcg Miscellaneous (Carbohydrates For Hypoglycemia ) 15 - 30 gm PO UD PRN PRN Reason: Hypoglycemia Protocol Stop: 10/06/24 07:01 Potassium Chloride (Potassium Chloride Crtab 20 Meq Tabcr) 20 meq PO BID MELANI Stop: 10/07/24 10:59 Last Admin: 09/09/24 08:49 Dose: 20 meq Tamsulosin HCl (Tamsulosin Hcl 0.4 Mg Cap) 0.4 mg PO DAILY MELANI Stop: 10/05/24 08:59 Last Admin: 09/05/24 08:51 Dose: Not Given
[2024-09-10 08:13] LABS: BUN Creatinine Ratio 24.9 (10-20); Calcium 8.1 mg/dl (8.6-10.3); Creatinine Clr Calc Pharmacy 30.3 ml/min; Potassium 3.7 mmol/L (3.5-5.1)
--- NOTE | 2024-09-10 09:30 | Cardiology Progress Note ---
Date of Service September 10, 2024 Assessment & Plan (1) Sepsis: (2) Acute systolic heart failure: (3) VENITA (acute kidney injury): Plan 84-year-old male with acute on chronic heart failure with reduced ejection fraction due to ischemic cardiomyopathy. Complex cardiac history. Patient with underlying immunocompromised state in the setting of prostate cancer with radiation therapy. CT of the chest performed on admission revealed possible left lower lobe pneumonia as well as small bilateral pleural effusions and ascites. 2/2 blood cultures obtained on presentation 09/04/2024 have yielded findings of strep agalactiae. Repeat cultures 09/06/2024 without growth. Possible source of infection is left foot wound, no osteomyelitis on x-ray. - JOSE 09/08/24 with no valvular vegetation. AICD leads well visualized and without vegetation. - labs with anemia and thrombocytopenia, but improving, currently with VENITA, also improving - LFT labs ordered - responding well to IV furosemide, continue, nephrology currently on board, appreciate recommendations - continue Eliquis 2.5 mg twice daily (dose appropriate based on Cr and age) - continue plavix 75 mg daily - hepatic ultrasound findings suggestive of cirrhosis, likely related to chronic congestive hepatopathy related to his CHF, has also been on amiodarone for about 5 years. Amiodarone remains on hold as LFTs improved. - antibiotics per primary - continue to monitor on telemetry Case discussed with supervising physician, further recommendations per Dr. Price. I spent a total of 20 minutes on the date of service in preparation, delivery, and documentation of the care provided to this patient excluding any time spent in the performance of separately billed services. This visit was a split-shared visit with the substantial portion of the decision making performed by the supervising nipping machine operator/billing provider. Admission and Anticipated Discharge Date Admission Date: September 04, 2024 Supervising Physician Co-Signing Physician Notes I spent a total of 30 minutes on the date of service in preparation, delivery, and documentation of the care provided to this patient, excluding any time spent in the performance of separately billed services. I have personally performed a history and physical examination on the patient. I have reviewed the advance practitioner's documentation, and I agree with, and take responsibility for the plan of care. Subjective Patient seen today in cardiology follow up. States he feels well. Denies chest pain, shortness of breath, edema, lightheadedness. Notes rash across entire body that is itchy. Telemetry with controlled heart rates and paced rhythm. Review of Systems Review of Systems: CONSTITUTIONAL: No change in weight, No weakness, No fatigue and No fevers, No sweats or chills. PULMONARY: No cough, sputum, or hemoptysis, No wheezing, No shortness of breath and No recent change in breathing. CARDIOVASCULAR: No chest pain, No dyspnea on exertion, No edema, No palpitations and No syncope. GASTROINTESTINAL: No abdominal pain, No change in bowel habits, No significant heartburn, No nausea, No vomiting, No diarrhea, No constipation, No blood in stools or black tarry stools. No dysphagia. HEMATOLOGIC: No abnormal bleeding and No bruising. NEUROLOGICAL: Normal balance, No headaches and No weakness. Physical Exam Physical Exam: General: No acute distress. A+Ox3. HEENT: Normocephalic. Atraumatic. PERRL. EOMI. Conjunctiva and sclera clear. NECK: No carotid bruits. No JVD. Carotid upstrokes are brisk. Heart: RRR. S1 and S2 noted. No murmur. No rubs or gallops. PMI non displaced. Lungs: Clear to auscultation. No wheezes. No rhonchi. No rales. Abdomen: Normal bowel sounds. Soft. Nontender. No masses or organomegaly. No abdominal bruits. Extremities: No edema. No clubbing or cyanosis. Pulses: radial=2/4 NEURO: No focal deficits. PSYCH: Appropriate affect and insight. Results & Data Vital Signs (Past 12 Hours) Vital Signs Temp Pulse Resp BP Pulse Ox O2 Del Method 09/10/24 07:14 36.7 C 65 17 92/51 L 93 Room Air 09/10/24 02:57 36.7 C 62 19 98/59 L 97 Room Air 09/09/24 22:50 36.9 C 68 18 105/53 L 95 Room Air Laboratory Results Comprehensive Metabolic Panel 09/10/24 Range/Units 07:32 Sodium 135 L (136-145) mmol/L Potassium 3.7 (3.5-5.1) mmol/L Chloride 100 (98-107) mmol/L Carbon Dioxide 27 (21-32) mmol/L BUN 52 H (6-23) mg/dl Creatinine 2.09 H (0.6-1.4) mg/dl Glucose 101 H (70-99(Fasting)) mg/dl Calcium 8.1 L (8.6-10.3) mg/dl Intake and Output 09/09/24 09/10/24 09/10/24 22:59 06:59 14:59 Output Total 651 / 1252 Balance -651 / -892 Output: Urine Amount (Catheter) 650 / 1250 Nichols/Indwelling 650 / 1250 # Bowel Movements 1 / 2 Other: Weight 90.8 kg Weight Measurement Method Built in [facility] (1) Sepsis Sepsis acute organ dysfunction status: with acute organ dysfunction Sepsis type: Streptococcus group B Severe sepsis acute organ dysfunction type: unspecified Severe sepsis shock status: unspecified Qualified Code(s): A40.1 - Sepsis due to streptococcus, group B; R65.20 - Severe sepsis without septic shock
[2024-09-10 11:15] LABS: Albumin Level 2.9 gm/dl (3.4-5.0); Bilirubin Direct 1.1 mg/dl (0-0.2); Bilirubin,Total 1.9 mg/dl (0.2-1.0); Total Protein 5.2 gm/dl (6.0-8.3)
--- NOTE | 2024-09-10 11:32 | Nephrology Progress Note ---
Date of Service September 10, 2024 Assessment & Plan (1) Acute kidney injury superimposed on stage 3b chronic kidney disease: Plan: plateau'd Stage 3 oliguric VENITA on CKD 3 (CKD 3 neither A nor B) based on UOP at admission; creatinine 2.9 on admission and essentially plateau'd, not unexpected in the setting of sepsis and HF. he had 25 mL UOP [id number]; then 50 mL next 2 hrs; then 250 mL [id number] on first day after admission. life threatening multiorgan failure on presentation w/ respiratory, cardiac, renal, liver failure >> ischemic ATN whether from septicemia or cardiorenal w/ acute systolic heart failure. baseline creatinine about 1.6-1.7 w/ 143 mg/gm albuminuria. Renal functions Slowly improving , Cr 2.09 >>>continue lasix to 30 mg IV tid timed so as not to disrupt sleep; responded well initially but weight somewhat stalled at 90.8 for last 48 hr, but UOP has been reasonable-- Continue on 1 more day. will abdias need reducing it tomorow. -daily bmp to continue -strict I/O -continue BP support to goal MAP 65 or better > pressors as needed; last used afternoon 09/07 -daily BMP -no current indication for renal replacement therapy (2) Acute exacerbation of CHF (congestive heart failure): Plan: combined and severe systolic/diastolic HF w/ EF 25-29%. Negative TTE today -09/06 started IV lasix -f/u cardiology recs (3) Streptococcemia: Plan: 11/24 blood cultures 09/04 w/ Strep agalactiae; 1Likley from L foot wound, JOSE negative Repeat cultures from 09/06 has been negative so far Admission and Anticipated Discharge Date Admission Date: September 04, 2024 Subjective Comfortable, NO SOB, C/o itchy rash on the nape of the neck. Review of Systems 2 Review of Systems: All systems reviewed & are unremarkable except as noted in HPI & below Physical Exam 2 Physical Exam: General: No acute distress. A+Ox3. NECK: No carotid bruits. No JVD. Carotid upstrokes are brisk. Heart: RRR. S1 and S2 noted. No murmur. No rubs or gallops. PMI non displaced. Lungs: Clear to auscultation. No wheezes. No rhonchi. No rales. Abdomen: Normal bowel sounds. Soft. Nontender. No masses or organomegaly. No abdominal bruits. Extremities: No edema. No clubbing or cyanosis. NEURO: No focal deficits. Results & Data Vital Signs (Past 12 Hours) Vital Signs Temp Pulse Resp BP Pulse Ox O2 Del Method 09/10/24 10:36 36.3 C L 67 18 97/54 L 98 Room Air 09/10/24 07:14 36.7 C 65 17 92/51 L 93 Room Air 09/10/24 02:57 36.7 C 62 19 98/59 L 97 Room Air Laboratory Results 09/09/24 07:48 09/10/24 07:32 (2) Acute exacerbation of CHF (congestive heart failure) Heart failure type: systolic Qualified Code(s): I50.23 - Acute on chronic systolic (congestive) heart failure
--- NOTE | 2024-09-10 14:21 | Hospitalist Progress Note ---
Date of Service September 10, 2024 Assessment & Plan (1) Acute lactic acidosis: (2) Acute hypoxemic respiratory failure: (3) Elevated brain natriuretic peptide (BNP) level: (4) Acute kidney injury superimposed on stage 3b chronic kidney disease: (5) Elevated liver function tests: (6) Elevated troponin level: (7) Hyperkalemia: Plan Junior Garcia is an 84-year-old male past medical history of DM type II, diabetic neuropathy, diabetic peripheral angiopathy, gouty arthropathy, hypothyroidism, BHUPINDER/nocturnal hypoxemia intolerant to CPAP, CKD stage IIIb, HTN, HLD, left arm DVT in 2017, paroxysmal atrial fibrillation anticoagulated with Eliquis, ventricular tachycardia s/p pacer-defibrillator placement in 2019, CAD s/p CABG x 3 in 2015, ischemic cardiomyopathy, systolic CHF, peripheral artery disease, left vertebral artery stenosis, atrial septal aneurysm, prostate cancer [currently receiving radiation + Casodex + Firmagon], 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 Sepsis Strep Bacteremia Possible Pneumonia Foot wound Acute metabolic Encephalopathy patient presented unresponsive and confused lactic acidosis noted, Procalcitonin elevated at 1.93 MRSA nares negative Respiratory bio fire panel negative UA unremarkable, no reflex urine culture Blood cultures 4 out of 4 bottles currently growing group B strep agalactiae chest x-ray noting cardiomegaly with pulmonary edema and small pleural effusions CT chest concerning for pneumonia CT abdomen pelvis concerning for cystitis Patient with left foot wound On IV Ancef at this time Repeat blood cultures in 48 hours- Negative ID consult- awaiting No more confusion, does not have any fever and/or chills and the white count is normalized Continue with current antibiotic of cefazolin twice daily Remains medically stable with low blood pressure requiring Levophed No fever and no chills and does not have any respiratory symptoms at rest Status post negative JOSE He has been feeling much better and does not have any more confusion Feeling a lot better today but remains weak and denies any significant symptoms Clinically much better and remains afebrile Developed erythematous rash for the last 2 days around lower abdomen and adjoining area of the thighscould be secondary to antibiotic but does not have any other associated symptoms with Intravenous cefazolin has been changed to ceftriaxone 2 g daily Still awaiting ID recommendation about duration and choice of antibiotic Persistent hypotension Has been requiring pressor support with Levophed Also getting Lasix to decrease edema His blood pressure is maintained without pressor agents Blood pressure remains stable on the lower side at 99/62 Blood pressure is on the lower side and he is getting intravenous Lasix 3 times a day and diuresing enough Will get PT and OT evaluation Acute hypoxic respiratory failure Possible pneumonia Pulmonary edema Pleural Effusions patient initially requiring oxygen supplementation X-ray and CT concerning for fluid overload Respiratory bio fire negative as noted above VBG noting pH of 7.34, pCO2 of 33 and bicarb of [address] was concerning for pneumonia Was initially on cefepime and Flagyl, transition to Ancef currently Patient currently on room air and improved Has been getting Levophed to maintain blood pressure and Lasix to continue diuresis as per the business analyst consultant and the e commerce merchant Has been saturating normally on room air Acute Kidney Injury on CKD Creatinine baseline of 1.4-1.6 Creatinine has been trending up to 3.14 Nephrology consulted, appreciate recs Avoid nephrotoxic medications when able Monitor renal function closely -renal function has been improving gradually with BUN and creatinine today 60/2.9 on Kidney function is getting better and it is 54/2.54 as of 09/08/2024 Kidney function has been stable and improving Creatinine has been stable and gradually improving which is 2.09 as of 09/10/2024 Transaminitis Ascites Liver enzymes significantly elevated likely secondary to hypotension with shock liverer Ultrasound revealed enlarged liver at 19.47 cm with coarse texture and thickening of KANIKA portal tract suggestive of cirrhosis GI consulted, appreciate recs Continue to monitor LFTs CT abdomen pelvis noting unremarkable liver Hepatitis panel ordered in the ICU- hepatitis panel is negative Continue to monitor LFTs- continues to improve Demand ischemia Acute on Chronic Systolic and Diastolic Congestive Heart Failure Trops elevated but flat in the 30-40 range EKG ruled out for acute ischemia by interventional cardiology Echo with noted EF of 25 to 29%, diastolic grade 3 dysfunction septal wall abnormalities posterior wall akinetic with hypokinesis of the inferior wall, left atrium severely dilated, moderate MR, moderate TR and mildly elevated p ulmonary artery systolic pressure Chest imaging concerning for cardiomegaly with pulmonary edema and small pleural effusions. Noted large volume ascites and anasarca Has been getting diuresis with Levophed on board to maintain blood pressure Cardiology consulted, appreciate further recs LFTs are improving gradually Has been receiving Lasix 30 mg IV 3 times daily and diuresing enough Atrial fibrillation Holding Eliquis for now Hold metoprolol succinate in setting of hypotension and sepsis Amiodarone also on hold Resume both as able Eliquis has been started Hyperkalemia K+ 5.7 on initial laboratory evaluation Treated with calcium gluconate/insulin in ED Continue to monitor and manage PRN Anemia Thrombocytopenia Hemoglobin and platelet levels noted to be low Holding home Eliquis Continue home Plavix Hypothyroidism continue levothyroxine. CAD/HLD Continue statin, Plavix Prostate Cancer Follows with Dr. Alejandro [[facility]] Currently undergoing radiation / [facility] + chemotherapy Continue Casodex DVT Prophylaxis: SCDs/TEDs for now. Code Status: DNR/DNI - No Resuscitation PCP: Sandra Judge MD Disposition: PT/OT for further recs once medically stable Admission and Anticipated Discharge Date Admission Date: September 04, 2024 Subjective 09-06 The patient was seen and examined in ICU He has been feeling worse today with more weakness and tiredness Denies any chest or abdominal pain and no nausea and or vomiting No fever and/or chills 09/07/2024 The patient was seen and examined in ICU He remains generally weak and lethargic and is still requiring intravenous Levophed to maintain blood pressure Has been getting furosemide to reduce fluid overload 09/08/2024 Patient was seen and examined in ICU He is a status post JOSE which was negative for any vegetations He has been feeling much better and has not been requiring any Levophed to maintain blood pressure Remains otherwise asymptomatic 09/09/2024 The patient was seen and examined in telemetry unit He has been feeling much better and the blood pressure remains on the lower side at 99/62 No arrhythmias denies any significant symptoms 09/10/2024 The patient was seen and examined in telemetry unit He has been much better today and denies any significant symptoms Mentioned that the rash the lower abdomen has been spreading with this erythematous but not tender and there is no hives Does not have any shortness of breath or any other symptoms with it Review of Systems Review of Systems: All systems reviewed and are unremarkable except as noted below Physical Exam Physical Exam: Lying in bed without any acute distress Constitutional: well developed, well nourished, + ill appearing and + obese Eyes: PERRL, conjunctivae normal, anicteric sclerae ENMT: external ear and nose normal, oropharynx normal Neck: trachea midline, no thyromegaly Respiratory: no respiratory distress Auscultation: lungs clear to ausc ultation bilaterally Cardiovascular: Rate/Rhythm: regular rate and regular rhythm; not tachycardic Heart Sounds: normal S1 and normal S2; no murmur Extremities: + edema ( trace edema bilaterally) Gastrointestinal (Abdomen): Inspection/Auscultation: normal bowel sounds; abdomen not distended Percussion/Palpation: abdomen soft; abdomen nontender Musculoskeletal: No acute arthritis involving any of the joint Neurologic: normal touch/pain/proprioception and moves all extremities; no focal motor deficits Lymphatic: no cervical or axillary lymphadenopathy Results & Data Results & Data Vital Signs (Past 12 Hours) Vital Signs Temp Pulse Resp BP Pulse Ox O2 Del Method 09/10/24 10:36 36.3 C L 67 18 97/54 L 98 Room Air 09/10/24 07:14 36.7 C 65 17 92/51 L 93 Room Air 09/10/24 02:57 36.7 C 62 19 98/59 L 97 Room Air Laboratory Results [facility] 09/10/24 07:32 Sodium 135 L Potassium 3.7 Chloride 100 Carbon Dioxide 27 BUN 52 H Creatinine 2.09 H Glucose 101 H Calcium 8.1 L Liver Function 09/10/24 Range/Units 07:32 Total Bilirubin 1.9 H (0.2-1.0) mg/dl Direct Bilirubin 1.1 H (0-0.2) mg/dl AST 41 H (13-39) U/L ALT 4 L (7-52) U/L Alkaline Phosphatase 119 H (34-104) U/L Albumin 2.9 L (3.4-5.0) gm/dl Medications Administered Current Inpatient Medications Apixaban (Apixaban 2.5 Mg Tab) 2.5 mg PO BID MELANI Stop: 10/08/24 20:59 Last Admin: 09/10/24 08:54 Dose: 2.5 mg Bicalutamide (Bicalutamide 50 Mg Tab) 50 mg PO DAILY MELANI Stop: 10/05/24 08:59 Last Admin: 09/06/24 08:06 Dose: 50 mg Clopidogrel Bisulfate (Clopidogrel Bisulfate 75 Mg Tab) 75 mg PO DAILY MELANI Stop: 10/05/24 08:59 Last Admin: 09/10/24 08:54 Dose: 75 mg Dextrose (Dextrose 50% 50 Ml Syringe) 25 - 50 ml IV UD PRN; Protocol PRN Reason: Hypoglycemia Protocol Stop: 10/06/24 07:01 Fidaxomicin (Fidaxomicin 200 Mg Tab) 200 mg PO BID MELANI Stop: 09/16/24 22:59 Last Admin: 09/10/24 08:54 Dose: 200 mg Furosemide (Furosemide 40 Mg/4 Ml Vial) 30 mg IV TID@0600,1200,1800 MELANI Stop: 10/07/24 12:59 Last Admin: 09/10/24 12:57 Dose: 30 mg Glucagon (Glucagon For Inj 1 Mg Vial) 1 mg SQ UD PRN; Protocol PRN Reason: Hypoglycemia Protocol Stop: 10/06/24 07:01 Glucose (Glucose 40% Gel 15 Gm Tube) 15 - 30 gm PO UD PRN; Protocol PRN Reason: Hypoglycemia Protocol Stop: 10/06/24 07:01 Glucose (Glucose 10 Tab/Tube) 4 - 8 tab PO UD PRN; Protocol PRN Reason: Hypoglycemia Protocol Stop: 10/06/24 07:01 Ceftriaxone Sodium (Rocephin) 2,000 mg in 50 mls @ 100 mls/hr IV Q24H MELANI Stop: 09/19/24 19:59 Insulin Aspart (Insulin Aspart Per Unit Charge) 0 units SC ACHS MELANI Stop: 10/08/24 05:59 Last Admin: 09/10/24 12:57 Dose: 6 units Levothyroxine Sodium (Levothyroxine Sodium 112 Mcg Tablet) 112 mcg PO DAILYBB MELANI Stop: 10/05/24 06:29 Last Admin: 09/10/24 06:08 Dose: 112 mcg Miscellaneous (Carbohydrates For Hypoglycemia ) 15 - 30 gm PO UD PRN PRN Reason: Hypoglycemia Protocol Stop: 10/06/24 07:01 Potassium Chloride (Potassium Chloride Crtab 20 Meq Tabcr) 20 meq PO BID MELANI Stop: 10/07/24 10:59 Last Admin: 09/10/24 08:59 Dose: 20 meq Tamsulosin HCl (Tamsulosin Hcl 0.4 Mg Cap) 0.4 mg PO DAILY MELANI Stop: 10/05/24 08:59 Last Admin: 09/05/24 08:51 Dose: Not Given
[2024-09-10] MEDS: cefTRIAXone SODIUM 2,000 MG/50 ML BAG IV SCH (21:17)
--- NOTE | 2024-09-11 10:44 | Nephrology Progress Note ---
Date of Service September 11, 2024 Assessment & Plan Admission and Anticipated Discharge Date Admission Date: September 04, 2024 Subjective Assessment & Plan (1) Acute kidney injury superimposed on stage 3b chronic kidney disease: Plan: plateau'd Stage 3 oliguric VENITA on CKD 3 (CKD 3 neither A nor B) based on UOP at admission; creatinine 2.9 on admission and essentially plateau'd, not unexpected in the setting of sepsis and HF. life threatening multiorgan failure on presentation w/ respiratory, cardiac, renal, liver failure >> ischemic ATN whether from septicemia or cardiorenal w/ acute systolic heart failure. baseline creatinine about 1.6-1.7 w/ 143 mg/gm albuminuria. Renal functions Slowly improving , Cr 2.09. No labs today. order for tomorrow Stop iv lasix remove swenson and do voiding trial. No edema now and BP is lowish so will deescalate Diuretics Change to oral lasix 40 bid ( home dose was 40 daily). may raise the dose depending on CXR f/u CXR to compare pulm edema. -daily bmp to continue -strict I/O -continue BP support to goal MAP 65 or better > pressors as needed; last used afternoon 09/07 -daily BMP -no current indication for renal replacement therapy (2) Acute exacerbation of CHF (congestive heart failure): Plan: combined and severe systolic/diastolic HF w/ EF 25-29%. Negative TTE today -09/06 started IV lasix (3) Streptococcemia: Plan: 4 blood cultures 09/04 w/ Strep agalactiae; 1Likley from L foot wound, JOSE negative Repeat cultures from 09/06 has been negative so far Subjective Comfortable, NO SOB, C/o itchy rash all ove r the body Review of Systems Review of Systems: All systems reviewed & are unremarkable except as noted in HPI & below Physical Exam Physical Exam: General: No acute distress. A+Ox3. NECK: No carotid bruits. No JVD. Carotid upstrokes are brisk. Heart: RRR. S1 and S2 noted. No murmur. No rubs or gallops. PMI non displaced. Lungs: Clear to auscultation. No wheezes. No rhonchi. No rales. Abdomen: Normal bowel sounds. Soft. Nontender. No masses or organomegaly. No abdominal bruits. Extremities: No edema. No clubbing or cyanosis. NEURO: No focal deficits. Results & Data Vital Signs (Past 12 Hours) Vital Signs Temp Pulse Pulse Resp BP BP Pulse Ox 09/11/24 08:00 71 09/11/24 07:16 36.5 C 55 L 18 98/56 L 96 09/11/24 03:26 36.6 C 61 17 103/55 L 95 09/10/24 23:28 36.5 C 68 19 103/67 96 O2 Del Method 09/11/24 08:00 09/11/24 07:16 Room Air 09/11/24 03:26 Room Air 09/10/24 23:28 Room Air
--- NOTE | 2024-09-11 10:47 | Cardiology Progress Note ---
Date of Service September 11, 2024 Assessment & Plan (1) Sepsis: (2) Acute systolic heart failure: (3) VENITA (acute kidney injury): Plan 84-year-old male with acute on chronic heart failure with reduced ejection fraction due to ischemic cardiomyopathy. Complex cardiac history. Patient with underlying immunocompromised state in the setting of prostate cancer with radiation therapy. CT of the chest performed on admission revealed possible left lower lobe pneumonia as well as small bilateral pleural effusions and ascites. 2/2 blood cultures obtained on presentation 09/04/2024 have yielded findings of strep agalactiae. Repeat cultures 09/06/2024 without growth. Possible source of infection is left foot wound, no osteomyelitis on x-ray. - JOSE 09/08/24 with no valvular vegetation. AICD leads well visualized and without vegetation. - labs with anemia and thrombocytopenia, but improving, currently with VENITA, also improving - LFT labs ordered - responding well to IV furosemide, continue, nephrology currently on board, appreciate recommendations - continue Eliquis 2.5 mg twice daily (dose appropriate based on Cr and age) - continue plavix 75 mg daily - hepatic ultrasound findings suggestive of cirrhosis, likely related to chronic congestive hepatopathy related to his CHF, has also been on amiodarone for about 5 years. Amiodarone remains on hold as LFTs improved. - antibiotics per primary - continue to monitor on telemetry 09/11/2023 Patient demonstrating clinical improvement but with diffuse erythema. No arrhythmias with patient paced rhythm on telemetry. Renal function improving by lab work yesterday. Patient previously on amiodarone for control of both atrial as well as ventricular arrhythmias. Transaminase elevation improving. 1. Acute sepsis per primary service, ID recommendations pending 2. Ischemic cardiomyopathy with compensated examination today. 3. Acute renal insufficiency secondary to sepsis, cardiorenal dysfunction. Clinically improved, appreciate nephrology recommendation 4. Transaminase elevation multifactorial including hypovolemia/ischemia. Will hold amiodarone additional 1 day maintain telemetry consider resumption tomorrow. 5. Diffuse erythema possible drug reaction I spent a total of 40 minutes on the date of service in preparation, delivery, and documentation of the care provided to this patient excluding any time spent in the performance of separately billed services. Admission and Anticipated Discharge Date Admission Date: September 04, 2024 Subjective Patient was seen and personally examined. No acute complaints. Feels improved. Examined while in bathroom. Notable findings diffuse erythema without eruption. No chest pains no tachypalpitations no dizziness Review of Systems Review of Systems: All systems reviewed & are unremarkable except as noted in Subjective Physical Exam Physical Exam: General: No acute distress. A+Ox3. HEENT: Normocephalic. Atraumatic. PERRL. EOMI. Conjunctiva and sclera clear. NECK: No carotid bruits. No JVD. Carotid upstrokes are brisk. Heart: RRR. S1 and S2 noted. No murmur. No rubs or gallops. PMI non displaced. Lungs: Clear to auscultation. No wheezes. No rhonchi. No rales. Abdomen: Normal bowel sounds. Soft. Nontender. No masses or organomegaly. No abdominal bruits. Extremities: No edema. No clubbing or cyanosis. Pulses: radial=2/4 NEURO: No focal deficits. PSYCH: Appropriate affect and insight. Results & Data Vital Signs (Past 12 Hours) Vital Signs Temp Pulse Pulse Resp BP BP Pulse Ox 09/11/24 08:00 71 09/11/24 07:16 36.5 C 55 L 18 98/56 L 96 09/11/24 03:26 36.6 C 61 17 103/55 L 95 09/10/24 23:28 36.5 C 68 19 103/67 96 O2 Del Method 09/11/24 08:00 09/11/24 07:16 Room Air 09/11/24 03:26 Room Air 09/10/24 23:28 Room Air Laboratory Results Laboratory Results - last 24 hr 09/10/24 09/10/24 09/10/24 07:32 16:07 20:11 POC Glucose 118 H 159 H Total Bilirubin 1.9 H Direct Bilirubin 1.1 H AST 41 H ALT 4 L Alkaline Phosphatase 119 H Total Protein 5.2 L Albumin 2.9 L 09/11/24 07:10 POC Glucose 139 H Total Bilirubin Direct Bilirubin AST ALT Alkaline Phosphatase Total Protein Albumin (1) Sepsis Sepsis acute organ dysfunction status: with acute organ dysfunction Sepsis type: Streptococcus group B Severe sepsis acute organ dysfunction type: unspec ified Severe sepsis shock status: unspecified Qualified Code(s): A40.1 - Sepsis due to streptococcus, group B; R65.20 - Severe sepsis without septic shock
--- NOTE | 2024-09-11 12:52 | Infectious Disease Consult ---
Date of Service September 11, 2024 Telehealth Information I performed this visit using a real-time telehealth connection between my location and the patients location ([facility]). After connecting through interactive tele-video, patient was identified by name and date of and/or wristband check.Patient (or authorized healthcare pharmaceutical sales representative) was informed that this was a telemedicine visit and it was being conducted confidentially over secure lines. My office door was closed and no one else was present in the room with me.Patient (or authorized healthcare pharmaceutical sales representative) provided consent to proceed with the visit, expressed an understanding of privacy and security of the telemedicine visit, and gave permission to have a hospital pharmaceutical sales representative in the room in order to assist with the visit and to conduct portions of the visit, as needed. I informed the patient (or authorized healthcare pharmaceutical sales representative) that I reviewed their record and presented the opportunity for them to ask any questions regarding the visit today. The patient agreed to participate. Assessment & Plan (1) Thrombocytopenia: (2) Acute hypoxemic respiratory failure: (3) Acute exacerbation of CHF (congestive heart failure): (4) Non-ST elevation MT (NSTEMI): (5) Elevated brain natriuretic peptide (BNP) level: (6) Pulmonary edema: (7) Streptococcemia: Plan Assessment: Junior Garcia is an 84-year-old male with PMHx of DM type II, diabetic neuropathy, diabetic peripheral angiopathy, gouty arthropathy, hypothyroidism, BHUPINDER/nocturnal hypoxemia intolerant to CPAP, CKD stage IIIb, HTN, HLD, left arm DVT in 2017, paroxysmal atrial fibrillation anticoagulated with Eliquis, ventricular tachycardia s/p pacer-defibrillator placement in 2019, CAD s/p CABG x 3 in 2015, ischemic cardiomyopathy, systolic CHF, peripheral artery disease, left vertebral artery stenosis, atrial septal aneurysm, prostate cancer [currently receiving radiation + Casodex + Firmagon], 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 Pt diagnosed with Strep Bacteremia and PNA. Pt is currently on Ceftriaxone 2g q24 IV. Today patient has full body rash that does not seem to have been address. Pt was originally on Cefazolin IV and last dose was on 09/08/2023. Pt did not have a rash coming into the hospital. Pt says his rash continues to get worse. Pt's only notable allergy is to Lisinopril. JOSE on 09/08/2024 negative for vegetations. Plan: 1. Strep Bacteremia and PNA. - Recommend switching Ceftriaxone 2g q24 IV to Ampicillin 2g q6 IV given rash (to try, 15% cross-reactivity). Please given benadryl PRN. - Please stop Dificid as patient has no diarrhea and has not had diarrhea. positive C. diff PCR likely means colonization. - Recommend 2 weeks of IV antibiotics from first negative on 09/06/2024. Please check CMP and CBC well. - we will not actively follow, please contact ID with questions, issues, or concerns via phone or tiger text. History of Present Illness History of Present Illness Reason for Consult: bacteremia Junior Garcia is an 84-year-old male with PMHx of DM type II, diabetic neuropathy, diabetic peripheral angiopathy, gouty arthropathy, hypothyroidism, BHUPINDER/nocturnal hypoxemia intolerant to CPAP, CKD stage IIIb, HTN, HLD, left arm DVT in 2018, paroxysmal atrial fibrillation anticoagulated with Eliquis, ventricular tachycardia s/p pacer-defibrillator placement in 2019, CAD s/p CABG x 3 in 2016, ischemic cardiomyopathy, systolic CHF, peripheral artery disease, left vertebral artery stenosis, atrial septal aneurysm, prostate cancer [curr ently receiving radiation + Casodex + Firmagon], 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 Pt diagnosed with Strep Bacteremia and PNA. ID consulted for evaluation and management. Allergies Allergy/AdvReac Type Severity Reaction Status Date / Time lisinopril AdvReac Mild COUGHING Verified 08/13/24 10:59 Home Medications Medication Instructions Recorded Confirmed Type amiodarone 200 mg tablet 200 mg PO QAM 03/11/23 09/04/24 History cholecalciferol (vitamin D3) 50 50 mcg PO DAILY 03/11/23 09/04/24 History mcg (2,000 unit) capsule (Vitamin D3) furosemide 20 mg tablet 40 mg PO DAILY 03/11/23 09/04/24 History potassium chloride 10 mEq 10 meq PO DAILY 03/11/23 09/04/24 History capsule,extended release tamsulosin 0.4 mg capsule 0.4 mg PO DAILY #90 caps 07/29/23 09/04/24 Rx apixaban 2.5 mg tablet 2.5 mg PO BID 05/13/24 09/04/24 History bicalutamide 50 mg tablet (Casodex) 50 mg PO DAILY 05/13/24 09/04/24 History levothyroxine 112 mcg tablet 112 mcg PO QAM 05/13/24 09/04/24 History metoprolol succinate 50 mg 50 mg PO BID 05/13/24 09/04/24 History tablet,extended release 24 hr clopidogrel 75 mg tablet (Plavix) 75 mg PO DAILY 07/06/24 09/04/24 History degarelix 120 mg subcutaneous 240 mg subcut ONCE #2 ea 07/07/24 09/04/24 Rx solution (Firmagon kit with diluent syringe) degarelix 80 mg subcutaneous 80 mg subcut Q28D #1 ea 07/19/24 09/04/24 Rx solution (Firmagon kit with diluent syringe) degarelix 80 mg subcutaneous 80 mg subcut Q28D #1 ea 08/18/24 09/04/24 Rx solution (Firmagon kit with diluent syringe) Patient History Medical History (Updated 09/09/24 @ 09:36 by Lynn Wise PA-C) Streptococcemia Acute kidney injury superimposed on stage 3b chronic kidney disease History of aspiration pneumonia admitted to [facility] 04/2024 Ischemic cardiomyopathy "prior EF 35-40% in August 2008; improved EF 50-54% on 11/24/16 echo" Paroxysmal atrial fibrillation hx--"postoperative" History of cardioembolic stroke ~2016, 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 Mitral regurgitation follows w/ Dr Hyde HTN (hypertension) Dyslipidemia Diabetes mellitus no meds currently BHUPINDER (obstructive sleep apnea) no device PFO (patent foramen ovale) Atrial septal defect Gout Diabetic neuropathy Chronic anticoagulation Hx of renal calculi Hx of ventricular tachycardia Transient vision disturbance of both eyes Peripheral artery disease Rectal bleeding Bowel obstruction (04/2024) recent admission to [facility] DJD of left shoulder Surgical History 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" History of total right knee replacement (2004) History of lithotripsy Hx of inguinal hernia repair (195) Hx of colonoscopy History of right shoulder replacement (2009) History of left shoulder replacement AICD present, double chamber [employer], implanted 2019 Family History Brother Katt required AICD Social History Smoking Status: Never smoker Second Hand Exposure: No; Do You Dip or Chew Tobacco: No; Hx Alcohol Use: No Hx Substance Use: No Preferred Language: Kazakh Communication Ability: Effective Visual Impairment: No Limitations Hearing Ability: Normal Trauma Registrar Required: No Beliefs That Will Affect Care: None marital status: Single Current Living Situation: Alone Current Living Situation Comment: home alone, daughter lives 12 miles away current occupational status: retired Feels Safe at Home: Yes Diet: regular during the past year weight has: decreased > 10 lbs Assistive Devices: Walker Results & Data Vital Signs (Past 12 Hours) Vital Signs Temp Pulse Pulse Resp BP BP Pulse Ox 09/11/24 10:58 36.3 C L 78 16 93/60 L 93/56 L 99 09/11/24 08:00 71 09/11/24 07:16 36.5 C 55 L 18 98/56 L 96 09/11/24 03:26 36.6 C 61 17 103/55 L 95 O2 Del Method 09/11/24 10:58 Room Air 09/11/24 08:00 09/11/24 07:16 Room Air 09/11/24 03:26 Room Air Laboratory Results 09/11/24 09/11/24 09/10/24 11:11 07:10 20:11 POC Glucose 133 H 139 H 159 H 09/10/24 16:07 POC Glucose 118 H Diagnostic Findings Blood culture on 09/06/2024 NGTD Blood culture on 09/04/2024 Blood Culture Aerobic Final 09/06/24-30 Organism 1 Strep agalactiae (group B) Sens Sensitivities to Follow GRAM STAIN result called to JUMA PIÑA On 09/05/24 at 0036 by Angela Olmos and results were verbalized back. Str ag GpB RX M.I.C. --- --------- Ampicillin S 0.12 Cefepime S <=0.25 Cefotaxime S <=0.25 Ceftriaxone S <=0.25 Chloramphenicol S 4 Clindamycin R >0.5 Erythromycin R >0.5 Penicillin S 0.06 Vancomycin S 0.5 S = SENSITIVE I = INTERMEDIATE R = RESISTANT Blood Culture Anaerobic Final 09/06/24-929 Organism 1 Strep agalactiae (group B) Sens Sensitivities to Follow Medications Administered Home Medications Medication Instructions Recorded Confirmed Last Taken amiodarone 200 mg tablet 200 mg PO QAM 03/11/23 09/04/24 05/30/24 cholecalciferol (vitamin D3) 50 50 mcg PO DAILY 03/11/23 09/04/24 05/29/24 mcg (2,000 unit) capsule (Vitamin D3) furosemide 20 mg tablet 40 mg PO DAILY 03/11/23 09/04/24 05/30/24 potassium chloride 10 mEq 10 meq PO DAILY 03/11/23 09/04/24 05/30/24 capsule,extended release tamsulosin 0.4 mg capsule 0.4 mg PO DAILY #90 caps 07/29/23 09/04/24 Unknown apixaban 2.5 mg tablet 2.5 mg PO BID 05/13/24 09/04/24 05/27/24 bicalutamide 50 mg tablet (Casodex) 50 mg PO DAILY 05/13/24 09/04/24 05/30/24 levothyroxine 112 mcg tablet 112 mcg PO QAM 05/13/24 09/04/24 05/30/24 metoprolol succinate 50 mg 50 mg PO BID 05/13/24 09/04/24 05/30/24 tablet,extended release 24 hr clopidogrel 75 mg tablet (Plavix) 75 mg PO DAILY 07/06/24 09/04/24 Unknown degarelix 120 mg subcutaneous 240 mg subcut ONCE #2 ea 07/07/24 09/04/24 Unknown solution (Firmagon kit with diluent syringe) degarelix 80 mg subcutaneous 80 mg subcut Q28D #1 ea 07/19/24 09/04/24 Unknown solution (Firmagon kit with diluent syringe) degarelix 80 mg subcutaneous 80 mg subcut Q28D #1 ea 08/18/24 09/04/24 Unknown solution (Firmagon kit with diluent syringe) Active Medications Generic Name Dose Route Start Last Admin Trade Name Freq PRN Reason Stop Dose Admin Apixaban 2.5 mg 09/08/24 21:00 09/11/24 08:13 Apixaban 2.5 Mg Tab PO 10/08/24 20:59 2.5 mg BID MELANI Administration Bicalutamide 50 mg 09/05/24 09:00 09/06/24 08:06 Bicalutamide 50 Mg Tab PO 10/05/24 08:59 50 mg DAILY MELANI Administration Clopidogrel Bisulfate 75 mg 09/05/24 09:00 09/11/24 08:13 Clopidogrel Bisulfate 75 Mg Tab PO 10/05/24 08:59 75 mg DAILY MELANI Administration Fidaxomicin 200 mg 09/06/24 23:00 09/11/24 08:13 Fidaxomicin 200 Mg Tab PO 09/16/24 22:59 200 mg BID MELANI Administration Ceftriaxone Sodium 2,000 mg in 50 mls @ 100 mls/hr 09/10/24 20:00 09/10/24 21:48 Rocephin IV 09/19/24 19:59 Infused Q24H MELANI Infusion Insulin Aspart 0 units 09/08/24 21:00 09/11/24 12:05 Insulin Aspart Per Unit Charge SC 10/08/24 05:59 4 units ACHS MELANI Administration Levothyroxine Sodium 112 mcg 09/05/24 06:30 09/11/24 05:21 Levothyroxine Sodium 112 Mcg Tablet PO 10/05/24 06:29 112 mcg DAILYBB MELANI Administration Potassium Chloride 20 meq 09/07/24 11:00 09/11/24 08:22 Potassium Chloride Crtab 20 Meq Tabcr PO 10/07/24 10:59 20 meq BID MELANI Administration Tamsulosin HCl 0.4 mg 09/05/24 09:00 09/05/24 08:51 Tamsulosin Hcl 0.4 Mg Cap PO 10/05/24 08:59 Not Given DAILY MELANI (3) Acute exacerbation of CHF (congestive heart failure) Heart failure type: systolic Qualified Code(s): I50.23 - Acute on chronic systolic (congestive) heart failure
--- NOTE | 2024-09-11 13:01 | XRay Report ---
XR chest 2V PA/lateral CLINICAL HISTORY: f/u CHF COMPARISON STUDY: Chest radiograph and chest CT September 04, 2024. FINDINGS: Median sternotomy wires, a left subclavian pacer/AICD and bilateral shoulder arthroplasties are incidentally noted. Moderate cardiomegaly is again noted. Mild interstitial pulmonary edema has slightly improved. There are trace bilateral pleural effusions. There is no pneumothorax. No consolid ation is identified to suggest pneumonia. IMPRESSION: 1. Cardiomegaly with mild interstitial pulmonary edema, slightly improved since prior exam. 2. Trace bilateral pleural effusions. ACT 112: Negative or not required by law. Electronically signed by: Shiva Chow M.D. 09/11/2024 1:00 PM
[2024-09-11] MEDS ORDERED: AMPICILLIN SOD 1 GM VIAL IV SCH (15:00)
--- NOTE | 2024-09-11 15:08 | Hospitalist Progress Note ---
Date of Service September 11, 2024 Assessment & Plan (1) Severe sepsis with acute organ dysfunction: (2) Acute lactic acidosis: (3) Demand ischemia: (4) Allergic drug rash due to anti-infective agent: (5) Streptococcal bacteremia: (6) Acute hypoxemic respiratory failure: (7) Acute kidney injury superimposed on stage 3b chronic kidney disease: (8) Hyperkalemia: (9) Acute on chronic systolic congestive heart failure: (10) Wound of left foot: (11) Prostate cancer: (12) Paroxysmal atrial fibrillation: Plan Patient with severe sepsis due to strep bacteremia most likely due to foot wound, sepsis is currently resolved and patient is steadily improving from his organ failure heart failure, acute kidney injury, acute liver injury. Communication with nephrology, the patient appears to be at baseline volume status, transition to oral diuretics Reviewed cardiology recommendations, continuing telemetry monitoring, determine when best to restart amiodarone Reviewed and communicated with infectious disease, recommending transitioning to ampicillin for total 2 weeks from negative blood cultures. Recommending discontinuing Dificid PICC consent obtained Case management for home antibiotics Follow laboratory studies Highly suspicious patient's rash is a drug eruption most likely due to cephalosporins either Ancef or ceftriaxone or both. There is some cross- reactivity with penicillins, however we will transition him to ampicillin as recommended by infectious disease. Claritin and Atarax for his pruritus Admission and Anticipated Discharge Date Admission Date: September 04, 2024 Subjective Patient is feeling significantly better. No chest pain. No shortness of breath. Eager to get Nichols removed. Concerned about this red rash essentially over his entire body. Becoming more pruritic. Patient states directly was not present on prior to admission. Physical Exam Physical Exam: Constitutional: Alert, nontoxic HEENT: Mucous membranes moist. Lungs: Decreased breath sounds, few crackles at bases CV: S1-S2, regular Abdomen: Soft, nontender, nondistended Extremities: Minimal ankle edema Neuro: No focal deficits Psych: Cooperative, normal mood Results & Data Results & Data Vital Signs (Past 12 Hours) Vital Signs Temp Pulse Pulse Resp BP BP Pulse Ox 09/11/24 14:18 0 L 09/11/24 13:50 36.5 C 73 18 123/65 99 09/11/24 10:58 36.3 C L 78 16 93/60 L 93/56 L 99 09/11/24 08:00 71 09/11/24 07:16 36.5 C 55 L 18 98/56 L 96 09/11/24 03:26 36.6 C 61 17 103/55 L 95 O2 Del Method 09/11/24 14:18 09/11/24 13:50 Room Air 09/11/24 10:58 Room Air 09/11/24 08:00 09/11/24 07:16 Room Air 09/11/24 03:26 Room Air Diagnostic Findings Reviewed imaging, laboratory and diagnostic studies. Pertinent findings as below. Glucoses reviewed Personally reviewed chest x-ray, significant cardiomegaly, minimal congestion small pleural effusions.
[2024-09-11] MEDS: AMPICILLIN 2,000 MG in SODIUM CHLOR 0.9% MINI-B 100 ML IV SCH (15:59)
[2024-09-11] MEDS: LORATADINE 10 MG TAB PO SCH (16:17)
[2024-09-11] MEDS: hydrOXYzine HCl 25 MG TAB PO PRN (16:18)
[2024-09-11] MEDS: FUROSEMIDE 80 MG TAB PO SCH (16:36)
[2024-09-11] MEDS ORDERED: FUROSEMIDE 40 MG TAB PO SCH (17:00)
[2024-09-12 07:16] LABS: Hematocrit (blood only) 24.8 % (42.0-52.0); Hemoglobin 8.4 g/dl (14.0-18.0); Mean Corpuscular Hemoglobin 26.5 pg (25.0-34.0); Mean Corpuscular Hgb Conc 33.9 g/dL (32.0-36.0); Mean Corpuscular Volume 78.2 fL (80.0-100.0); Mean Platelet Volume 9.9 fL (9.4-12.4); Platelet Count 157 K/uL (130-400); RDW Coefficient of Variation 23.6 % (11.5-14.5); RDW Standard Deviation 64.3 fL (36.4-46.3); Red Blood Count 3.17 M/uL (4.70-6.10); White Blood Count 7.64 K/ul (4.8-10.8)
[2024-09-12 07:55] LABS: Albumin Globulin Ratio 1.3 (0.9-2); Albumin Level 2.9 gm/dl (3.4-5.0); Bilirubin,Total 2.2 mg/dl (0.2-1.0); Calcium 8.4 mg/dl (8.6-10.3); Creatinine Clr Calc Pharmacy 28.3 ml/min; Globulin 2.2 gm/dl (2.5-4.0); Phosphorus 2.8 mg/dl (2.5-4.9); Total Protein 5.1 gm/dl (6.0-8.3)
--- NOTE | 2024-09-12 09:46 | Nephrology Progress Note ---
Date of Service September 12, 2024 Assessment & Plan Admission and Anticipated Discharge Date Admission Date: September 04, 2024 Subjective Assessment & Plan (1) Acute kidney injury superimposed on stage 3b chronic kidney disease: Plan: plateau'd Stage 3 oliguric VENITA on CKD 3 (CKD 3 neither A nor B) based on UOP at admission; creatinine 2.9 on admission and essentially plateau'd, not unexpected in the setting of sepsis and HF. life threatening multiorgan failure on presentation w/ respiratory, cardiac, renal, liver failure >> ischemic ATN whether from septicemia or cardiorenal w/ acute systolic heart failure. baseline creatinine about 1.6-1.7 w/ 143 mg/gm albuminuria. Renal functions creat 2.2 today so not a major change in last 3-4 days. Did remove swenson and doing voiding trial. No edema now and BP is lowish so will deescalate Diuretics. Change to oral lasix 40 bid ( home dose was 40 daily). f/u CXR to compare pulm edema done 09/11--Still has Pulm edema but less -daily bmp to continue -strict I/O -continue BP support to goal MAP 65 or better > pressors as needed; last used afternoon 09/07 -daily BMP -no current indication for renal replacement therapy (2) Acute exacerbation of CHF (congestive heart failure): Plan: combined and severe systolic/diastolic HF w/ EF 25-29%. Negative TTE today -09/06 started IV lasix (3) Streptococcemia: Plan: 11/24 blood cultures 09/04 w/ Strep agalactiae; 1Likley from L foot wound, JOSE negative Repeat cultures from 09/06 has been negative so far Subjective Comfortable, NO SOB, C/o itchy rash all over the body but says is less. swenson out. Does have some problem with voiding. Review of Systems Review of Systems: All systems reviewed & are unremarkable except as noted in HPI & below Physical Exam Physical Exam: General: No acute distress. A+Ox3. NECK: No carotid bruits. No JVD. Carotid upstrokes are brisk. Heart: RRR. S1 and S2 noted. No murmur. No rubs or gallops. PMI non displaced. Lungs: Clear to auscultation. No wheezes. No rhonchi. No rales. Abdomen: Normal bowel sounds. Soft. Nontender. No masses or organomegaly. No abdominal bruits. Extremities: No edema. No clubbing or cyanosis. NEURO: No focal deficits. Results & Data Vital Signs (Past 12 Hours) Vital Signs Temp Pulse Pulse Resp BP Pulse Ox O2 Del Method 09/12/24 07:33 36.6 C 66 18 100/57 L 98 Room Air 09/12/24 03:15 36.5 C 55 L 16 111/57 L 97 Room Air 09/11/24 23:33 36.7 C 72 18 98/61 L 95 Room Air 09/11/24 21:46 69
[2024-09-12] MEDS: oxyCODONE HCL IR 5 MG TAB (IMMEDIATE RELEASE) PO PRN (12:37)
--- NOTE | 2024-09-12 12:58 | Cardiology Progress Note ---
Date of Service September 12, 2024 Assessment & Plan (1) Sepsis: (2) Acute systolic heart failure: (3) VENITA (acute kidney injury): Plan 84-year-old male with acute on chronic heart failure with reduced ejection fraction due to ischemic cardiomyopathy. Complex cardiac history. Patient with underlying immunocompromised state in the setting of prostate cancer with radiation therapy. CT of the chest performed on admission revealed possible left lower lobe pneumonia as well as small bilateral pleural effusions and ascites. 2/2 blood cultures obtained on presentation 09/04/2024 have yielded findings of strep agalactiae. Repeat cultures 09/06/2024 without growth. Possible source of infection is left foot wound, no osteomyelitis on x-ray. - JOSE 09/08/24 with no valvular vegetation. AICD leads well visualized and without vegetation. - labs with anemia and thrombocytopenia, but improving, currently with VENITA, also improving - LFT labs ordered - responding well to IV furosemide, continue, nephrology currently on board, appreciate recommendations - continue Eliquis 2.5 mg twice daily (dose appropriate based on Cr and age) - continue plavix 75 mg daily - hepatic ultrasound findings suggestive of cirrhosis, likely related to chronic congestive hepatopathy related to his CHF, has also been on amiodarone for about 5 years. Amiodarone remains on hold as LFTs improved. - antibiotics per primary - continue to monitor on telemetry 09/11/2023 Patient demonstrating clinical improvement but with diffuse erythema. No arrhythmias with patient paced rhythm on telemetry. Renal function improving by lab work yesterday. Patient previously on amiodarone for control of both atrial as well as ventricular arrhythmias. Transaminase elevation improving. 1. Acute sepsis per primary service, ID recommendations pending 2. Ischemic cardiomyopathy with compensated examination today. 3. Acute renal insufficiency secondary to sepsis, cardiorenal dysfunction. Clinically improved, appreciate nephrology recommendation 4. Transaminase elevation multifactorial including hypovolemia/ischemia. Will hold amiodarone additional 1 day maintain telemetry consider resumption tomorrow. 5. Diffuse erythema possible drug reaction 09/12/2023 Cardiac status stable to improving. Assessment and plan as outlined above. Diuretics being managed via nephrology. Recommend resuming amiodarone at 200 mg/day (prehospital dosing) for atrial arrhythmia and ventricular arrhythmia control I spent a total of 40 minutes on the date of service in preparation, delivery, and documentation of the care provided to this patient excluding any time spent in the performance of separately billed services. Admission and Anticipated Discharge Date Admission Date: September 04, 2024 Subjective Patient seen and examined, chart, medications, telemetry reviewed. No arrhythmias on telemetry. Ventricular paced rhythm Rash improving slightly No dizziness or lightheadedness respiratory status improved Diuretics changed to oral today Review of Systems Review of Systems: All systems reviewed & are unremarkable except as noted in Subjective Physical Exam Constitutional: no acute distress Eyes: PERRL, conjunctivae normal, anicteric sclerae Neck: trachea midline, no thyromegaly Respiratory: normal respiratory effort, lungs clear to auscultation Cardiovascular: Rate/Rhythm: regular rate Chest (Breasts): Chest: + pacemaker Gastrointestinal (Abdomen): normal bowel sounds, soft, nontender, no hepatosplenomegaly Results & Data Vital Signs (Past 12 Hours) Vital Signs Temp Pulse Pulse Resp BP Pulse Ox O2 Del Method 09/12/24 10:32 36.3 C L 53 L 18 111/68 100 Room Air 09/12/24 08:00 67 09/12/24 07:33 36.6 C 66 18 100/57 L 98 Room Air 09/12/24 03:15 36.5 C 55 L 16 111/57 L 97 Room Air (1) Sepsis Sepsis acute organ dysfunction status: with acute organ dysfunction Sepsis type: Streptococcus group B Severe sepsis acute organ dysfunction type: unspecified Severe sepsis shock status: unspecified Qualified Code(s): A40.1 - Sepsis due to streptococcus, group B; R65.20 - Severe sepsis without septic shock
[2024-09-12 15:21] LABS: Appearance Urine Clear (Clear); Bacteria Urine Automated None Seen (None Seen); Bilirubin Urine Negative (Negative); Blood Urine 3+ (Negative); Color Urine Yellow; Epithelial Cell Urine Auto 0-2 /hpf (0-2); Glucose Urine UA Negative (Negative); Ketones Urine Negative (Negative); Leukocyte Esterase Urine Trace (Negative); Nitrite Urine Negative (Negative); Protein Urine 1+ (Negative); RBC Urine Automated >20 /hpf (0-2); Urobilinogen Urine Negative (Negative); WBC Urine Automated 0-5 /hpf (0-5); pH Urine 5.5 (4.5-7.5)
--- NOTE | 2024-09-12 16:30 | Hospitalist Progress Note ---
Date of Service September 12, 2024 Assessment & Plan (1) Severe sepsis with acute organ dysfunction: (2) Acute lactic acidosis: (3) Demand ischemia: (4) Allergic drug rash due to anti-infective agent: (5) Streptococcal bacteremia: (6) Acute hypoxemic respiratory failure: (7) Acute kidney injury superimposed on stage 3b chronic kidney disease: (8) Hyperkalemia: (9) Acute on chronic systolic congestive heart failure: (10) Wound of left foot: (11) Prostate cancer: (12) Paroxysmal atrial fibrillation: Plan Continue ampicillin for strep bacteremia. Patient's drug rash from cephalosporins seems to be improving, tolerating ampicillin, continue current plan. Informed patient that cefazolin and ceftriaxone added to his allergy list for rashes IV access for prolonged antibiotics to be obtained today Case management working on rehab placement Patient had a bladder scan greater than 500 cc, straight cath performed. Suspect patient may have some ongoing issues with retention while he is in the hospital and less mobile. If he continues have retention will replace Nichols catheter. Suspect his dysuria is due to urethral irritation or even due to his bladder distention. Cannot restart Flomax due to his borderline low blood pressure and high risk for orthostasis. Reviewed cardiology note, restart amiodarone for control of his atrial arrhythmias Reviewed nephrology notation, decreasing diuretics Continue anticoagulation with apixaban Continue monitor glucose with short acting insulin treatment Attempted to contact patient's daughter for update, no answer, no identifiable voicemail Admission and Anticipated Discharge Date Admission Date: September 04, 2024 Subjective Patient feeling stronger. Biggest complaint is he has had some significant dysuria since his Nichols was removed. Complaining of a lot of dribbling and incontinence. He does feel as though the rash is improving. He admits to less pruritus Physical Exam Physical Exam: Constitutional: Alert, nontoxic HEENT: Mucous membranes moist. Lungs: Clear to auscultation, decreased, no wheezes rales or rhonchi CV: S1-S2, regular Abdomen: Soft, nontender, nondistended Extremities: No significant edema Derm: Diffuse fine macular rash over entire body, highly consistent with drug rash, less inflamed and red compared to yesterday, slowly fading Neuro: No focal deficits Psych: Cooperative, normal mood Results & Data Results & Data Vital Signs (Past 12 Hours) Vital Signs Temp Pulse Pulse Resp BP Pulse Ox O2 Del Method 09/12/24 15:46 36.4 C L 69 18 100/53 L 99 Room Air 09/12/24 10:32 36.3 C L 53 L 18 111/68 100 Room Air 09/12/24 08:00 67 09/12/24 07:33 36.6 C 66 18 100/57 L 98 Room Air Diagnostic Findings Reviewed imaging, laboratory and diagnostic studies. Pertinent findings as below. WBC 7.6 Hemoglobin 8.4 Platelets 157 Creatinine 2.2, baseline Glucose reviewed BNP 3652 Urinalysis negative nitrates, trace leukocyte esterase, no bacteria seen
[2024-09-13 08:25] LABS: Albumin Level 3.3 gm/dl (3.4-5.0); BUN Creatinine Ratio 23.2 (10-20); Calcium 8.8 mg/dl (8.6-10.3); Phosphorus 3.2 mg/dl (2.5-4.9); Potassium 4.1 mmol/L (3.5-5.1)
[2024-09-13] MEDS: AMIODARONE 200 MG TAB PO SCH (08:32)
--- NOTE | 2024-09-13 13:54 | Hospitalist Progress Note ---
Date of Service September 13, 2024 Assessment & Plan (1) Severe sepsis with acute organ dysfunction: (2) Acute lactic acidosis: (3) Demand ischemia: (4) Allergic drug rash due to anti-infective agent: (5) Streptococcal bacteremia: (6) Acute hypoxemic respiratory failure: (7) Acute kidney injury superimposed on stage 3b chronic kidney disease: (8) Hyperkalemia: (9) Acute on chronic systolic congestive heart failure: (10) Wound of left foot: (11) Prostate cancer: (12) Paroxysmal atrial fibrillation: Plan Patient recovering from streptococcal bacteremia, respiratory failure acute kidney injury. Showing steadily improvement. Renal function improved with diuresis, continue current Lasix dose 80 mg twice daily Amiodarone restarted today per cardiology recommendation Continue chronic anticoagulation Continue other medications as prescribed Continue therapies Continue to pursue rehab placement Admission and Anticipated Discharge Date Admission Date: September 04, 2024 Subjective Patient reports he is feeling good. No acute issues overnight. His rash continues to improve. Aide at bedside reports rash significantly improved from when she cared for him the other day Physical Exam Physical Exam: Constitutional: Alert, nontoxic HEENT: Mucous membranes moist. Lungs: Decreased breath sounds bilaterally CV: S1-S2, regular Abdomen: Soft, nontender, nondistended Extremities: No significant edema Derm: Macular rash significantly improved fading overall, less red and fiery. Neuro: No focal deficits, general weakness Psych: Cooperative, normal mood Results & Data Results & Data Vital Signs (Past 12 Hours) Vital Signs Temp Pulse Pulse Resp BP Pulse Ox O2 Del Method 09/13/24 10:34 36.5 C 71 20 102/53 L 98 Room Air 09/13/24 08:04 36.4 C L 71 17 102/58 L 96 Room Air 09/13/24 08:00 62 09/13/24 03:32 36.6 C 89 16 122/73 94 Room Air Diagnostic Findings Reviewed imaging, laboratory and diagnostic studies. Pertinent findings as below. Creatinine 2.1 Glucoses reviewed Potassium 4.1
[2024-09-13 21:43] VITALS: RESP 16
[2024-09-14 09:35] LABS: Albumin Level 3.1 gm/dl (3.4-5.0); BUN Creatinine Ratio 22.3 (10-20); Calcium 8.4 mg/dl (8.6-10.3); Creatinine Clr Calc Pharmacy 28.7 ml/min; Phosphorus 3.8 mg/dl (2.5-4.9); Potassium 4.4 mmol/L (3.5-5.1)
[2024-09-14] MEDS ORDERED: LIDOCAINE 2% JELLY 5 ML TUBE EXT PRN (15:36)
[2024-09-14] MEDS: ACETAMINOPHEN 500 MG TAB PO PRN (15:38)
--- NOTE | 2024-09-14 15:51 | Hospitalist Progress Note ---
Date of Service September 14, 2024 Assessment & Plan (1) Severe sepsis with acute organ dysfunction: (2) Acute lactic acidosis: (3) Demand ischemia: (4) Allergic drug rash due to anti-infective agent: (5) Streptococcal bacteremia: Plan: Antibiotics through 09/20/2024 (6) Acute hypoxemic respiratory failure: (7) Acute kidney injury superimposed on stage 3b chronic kidney disease: (8) Hyperkalemia: (9) Acute on chronic systolic congestive heart failure: (10) Wound of left foot: (11) Prostate cancer: Plan: Completed radiation treatment while here in hospital (12) Paroxysmal atrial fibrillation: Plan Patient continues to improve from his bacteremia Continue current antibiotics through 09/20/2024 Reviewed pacemaker summary report, no significant arrhythmias. This was done at the conclusion of the patient's radiation treatments Continue current medical regimen Patient is continue to have some urethral irritation from his Nichols catheter. Trial of viscous lidocaine Peer to peer performed. Reviewed patient's condition with the medical territory manager. department director agreed to cover residential rehabilitation. 52 minutes spent on coordination of care, evaluation of patient, interpretation of data, disposition planning with case management and medical territory manager of insurance. Admission and Anticipated Discharge Date Admission Date: September 04, 2024 Subjective Patient continues to make steady improvements. Denies any chest pain or shortness of breath. Feels as though the urethral pain might be somewhat better. Can hardly tell he has the rash Physical Exam Physical Exam: Constitutional: Alert, nontoxic HEENT: Mucous membranes moist. Lungs: Decreased breath sounds, no wheezes CV: S1-S2, regular Abdomen: Soft, nontender, nondistended Extremities: No significant edema Derm: Macular rash minimally visible at this point. Significantly improved Neuro: No focal deficits, generalized weakness Psych: Cooperative, normal mood Results & Data Results & Data Vital Signs (Past 12 Hours) Vital Signs Temp Pulse Resp BP Pulse Ox O2 Del Method 09/14/24 14:48 36.7 C 73 16 106/60 98 Room Air 09/14/24 10:27 Room Air 09/14/24 06:58 36.5 C 72 16 96/56 L 96 Room Air Diagnostic Findings Reviewed imaging, laboratory and diagnostic studies. Pertinent findings as below. Creatinine 2.0 Other electrolytes stable
[2024-09-15 07:15] VITALS: BP 96/58; PULSE 65; TEMP 98.1; O2SAT 95
--- NOTE | 2024-09-15 14:41 | Discharge Summary ---
Discharge Summary Date of Service September 15, 2024 Principal Dx & Hospital Course #1 = Principal Diagnosis (1) Severe sepsis with acute organ dysfunction: (2) Acute lactic acidosis: (3) Demand ischemia: (4) Allergic drug rash due to anti-infective agent: (5) Streptococcal bacteremia: Antibiotics through 09/20/2024 (6) Acute hypoxemic respiratory failure: (7) Acute kidney injury superimposed on stage 3b chronic kidney disease: (8) Hyperkalemia: (9) Acute on chronic systolic congestive heart failure: (10) Wound of left foot: (11) Prostate cancer: Completed radiation treatment while here in hospital (12) Paroxysmal atrial fibrillation: Plan Patient presented to the emergency room from [facility] where he had been getting treatments for his prostate cancer. He was noted to be hypoxic there. In the emergency room confirmed hypoxia he also had significant lactic acidosis acute kidney injury hyperkalemia and elevated troponin. He was admitted to the hospital And critical care consultation was obtained. He was treated for severe sepsis with organ dysfunction including demand ischemia and respiratory failure. Cardiology consultation was obtained as well as nephrology consultation. Due to his hypotension, sepsis and acute kidney injury multiple home medications were held. Patient's blood culture eventually grew Streptococcus. Patient underwent JOSE and showed no evidence of endocarditis. Infectious disease consultation was obtained. It was initially treated with Ancef and ceftriaxone. Unfortunately, patient had severe drug rash due to the cephalosporins. He was treated with Claritin and antihistamines. His rash rapidly improved after his antibiotics was transition to ampicillin. Recommended treating with ampicillin through 09/20/2024. With treatment of his infection his acute kidney injury improved. He was transferred out of the ICU. Once blood cultures sterilized PICC line was placed for ongoing IV antibiotics. After his initial resuscitation, patient need diuresis. He received IV diuretics and subsequently transition to oral diuretics. His laboratory studies were frequently monitored. His overall volume status compensated and stabilized on 2 times daily oral Lasix. A Nichols catheter was removed and a voiding trial was performed. After his initial retention patient's bladder did start to empty appropriately. He did have some urethral irritation from the Nichols that was steadily improving. Therapies were involved in his care. He was greatly deconditioned from his acute illness and skilled rehab was recommended. Case management became involved in his care and coordinated application and admittance to [facility]. Cardiology's steadily restarted some of his chronic medications including amiodarone for management of his chronic atrial arrhythmias. He tolerated this well. On the day of discharge his vital signs are stable. His rash is significantly improved. He was tolerating the ampicillin. And eager to resume his and continue his rehabilitation at skilled facility. Notes For Next Care Provider Continue ampicillin through 09/20/2024 PICC line may be removed after antibiotics completed Recommend CBC BMP on Wednesday Follow-up with cardiology and nephrology Patient completed his course of radiation here in the hospital. Should follow- up with his prostate cancer physician as scheduled Medication Changes From Visit Ampicillin through 09/20/2024 Diuretics adjusted Metoprolol discontinued due to blood pressure Admission HPI Per Admitting Provider Junior Garcia is an 84-year-old male past medical history of DM type II, diabetic neuropathy, diabetic peripheral angiopathy, gouty arthropathy, hypothyroidism, BHUPINDER/nocturnal hypoxemia intolerant to CPAP, CKD stage IIIb, HTN, HLD, left arm DVT in 2017, paroxysmal atrial fibrillation anticoagulated with Eliquis, ventricular tachycardia s/p pacer-defibrillator placement in 2018, CAD s/p CABG x 3 in 2015, ischemic cardiomyopathy, systolic CHF, peripheral artery disease, left vertebral artery stenosis, atrial septal aneurysm, prostate cancer [currently receiving radiation + Casodex + Firmagon], 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 History obtained from the patient, discussion with ED provider and associated chart review. Patient seen at bedside with Dr. Couch. Patient was over at the [facility] receiving radiation therapy for his prostate cancer when he was noted to be acutely cyanotic-appearing and minimally responsive per staff, therefore he was brought over to the ED for evaluation. Forehead pulse oximetry reading was initially 77% on 10L OxyMask however he had to have his pulse oximeter readjusted multiple times due to saturations are ranging from 50% to 100%. This may have been a false reading per RT; however, patient was subsequently placed on CPAP as he did appear to have circumoral cyanosis and nail bed cyanosis in the ED. At the time of our evaluation around 17:30, patient seemed comfortable on CPAP and was able to hold a conversation. Patient does endorse that he has been experiencing some shortness of breath and chills since Wednesday. He also endorses some burning with urination. No prior oxygen use at home. He does not utilize CPAP at home either. He has been experiencing some lower abdominal pain and mild discomfort in the middle of his lower back region since Wednesday. He denies any increase in urinary frequency or hematuria. No reported fevers at home. He has had quite the decline in his oral intake since Wednesday. He also notes some constipation as well. Initial laboratory evaluation in the ED revealed lactic acidosis with a lactate level of 8.1, hyperkalemia, VENITA on CKD stage IIIb, elevated BNP and elevated troponin. Respiratory BioFire panel was negative. CXR showed cardiomegaly with interstitial pulmonary edema and small bilateral pleural effusions as well as mild bibasilar atelectasis. Patient received 1L NSS as well as IV cefepime in the ED. Subsequent repeat lactate improved to 6.3; EKG was concerning for p ossible ST elevations however ED provider contacted the on-call dev ops engineer, Dr. Laboy, who felt the EKG changes are chronic and not indicative of acute changes. Patient denied any chest pain. Patient was still relatively hypotensive at 102/74 at time time of our evaluation. Admission Exam Per Admitting Provider See H&P Discharge Exam Constitutional: Alert, nontoxic, sitting up in chair HEENT: Mucous membranes moist. Lungs: Clear to auscultation, decreased, no wheezes rales or rhonchi CV: S1-S2, regular Abdomen: Soft, nontender, nondistended Extremities: No significant edema Derm: Macular rash extremely faint and essentially resolved Neuro: No focal deficits, generalized weakness Psych: Cooperative, normal mood Updated Medication List Medication Instructions Recorded Confirmed Type furosemide 20 mg tablet 40 mg PO DAILY 03/11/23 09/04/24 History potassium chloride 10 mEq 10 meq PO DAILY 03/11/23 09/04/24 History capsule,extended release metoprolol succinate 50 mg 50 mg PO BID 05/13/24 09/04/24 History tablet,extended release 24 hr degarelix 120 mg subcutaneous 240 mg subcut ONCE #2 ea 07/07/24 09/04/24 Rx solution (Firmagon kit with diluent syringe) degarelix 80 mg subcutaneous 80 mg subcut Q28D #1 ea 07/19/24 09/04/24 Rx solution (Firmagon kit with diluent syringe) degarelix 80 mg subcutaneous 80 mg subcut Q28D #1 ea 08/18/24 09/04/24 Rx solution (Firmagon kit with diluent syringe) acetaminophen 500 mg tablet 1,000 mg (2 x 500 mg) PO Q8H PRN 09/15/24 Rx (Tylenol Extra Strength) fever or pain #100 tabs amiodarone 200 mg tablet 200 mg PO QAM #30 tabs 09/15/24 Rx apixaban 2.5 mg tablet 2.5 mg PO BID #60 tabs 09/15/24 Rx bicalutamide 50 mg tablet (Casodex) 50 mg PO DAILY #30 tabs 09/15/24 Rx cholecalciferol (vitamin D3) 50 50 mcg PO DAILY #30 caps 09/15/24 Rx mcg (2,000 unit) capsule (Vitamin D3) clopidogrel 75 mg tablet (Plavix) 75 mg PO DAILY #30 tabs 09/15/24 Rx furosemide 80 mg tablet 80 mg PO BID17 #60 tabs 09/15/24 Rx levothyroxine 112 mcg tablet 112 mcg PO QAM #30 tabs 09/15/24 Rx potassium chloride 20 mEq 20 meq PO BID #60 tabs 09/15/24 Rx tablet,extended release(part/cryst) tamsulosin 0.4 mg capsule 0.4 mg PO DAILY #30 caps 09/15/24 Rx Hospital Stay Data Consultations 09/04/24 17:07 ED Decision to Admit Stat 09/04/24 17:52 Consult Gel Coater Routine 09/04/24 18:01 Consult Nephrology Routine 09/04/24 18:02 Consult Cardiology Routine 09/05/24 08:43 Consult Infectious Diseases Routine 09/05/24 17:48 Consult Gastroenterology Routine 09/07/24 10:58 Consult Anesthesiology Routine Procedures Performed Operation Date: 09/08/24 09:00 Actual Procedures p Echo Transesophageal - Conrad Do DO s Doppler Echo Limited/Follow Up - Conrad Do DO Diagnostic Imagining Performed 09/04/24 17:21 CT abd pelvis wo con Stat CT chest diagnostic wo con Stat 09/06/24 07:14 US liver Routine Reviewed imaging, laboratory and diagnostic studies. Pertinent findings as below. Initial blood cultures grew Streptococcus group B. Surveillance blood cultures from 09/06/2024 no growth WBC 7.6 Hemoglobin 8.4 Platelets of 157 Electrolytes within normal range Creatinine 2.20, baseline Stool for C. difficile negative Pending Results Patient Have Any Pending Studies at Discharge: No Discharge Instructions Given to Patient (Per Discharging Provider) Continue IV antibiotics through 09/20/2024. PICC line may be removed after antibiotics completed Patient completed radiation treatment while here in the hospital for his prostate cancer Total Time Total Time Spent Total Time Spent (In Minutes): 40
== END 2024-09-15 16:13 | DRG 871 ==
LOC: ED 14:16 → SUATTDRO 17:52 → 1E 17:52 → 2S 09-09 05:51 → 3W 09-13 21:35

== ENCOUNTER 2025-03-09 17:19 | Inpatient (IN) ==
[2025-03-09 18:04] LABS: Hematocrit (blood only) 29.3 % (42.0-52.0); Hemoglobin 9.2 g/dl (14.0-18.0); Immature Granulocytes # (auto) 0.01 K/uL (0.01-0.20); Immature Granulocytes % (auto) 0.2 %; Mean Corpuscular Hemoglobin 29.0 pg (25.0-34.0); Mean Corpuscular Volume 92.4 fL (80.0-100.0); Platelet Count 118 K/uL (130-400); RDW Standard Deviation 65.2 fL (36.4-46.3); Red Blood Count 3.17 M/uL (4.70-6.10); White Blood Count 4.66 K/ul (4.8-10.8)
[2025-03-09 18:21] LABS: Alanine Aminotransferase 17.0 U/L (7-52); Albumin Globulin Ratio 1.3 (0.9-2); Alkaline Phosphatase 95.0 U/L (34-104); Anion Gap 9.0 (3-11); Bilirubin,Total 1.7 mg/dl (0.2-1.0); Blood Urea Nitrogen 45.0 mg/dl (6-23); Calcium 9.4 mg/dl (8.6-10.3); Carbon Dioxide 26.0 mmol/L (21-32); Chloride 103.0 mmol/L (98-107); Creatinine Clr Calc Pharmacy 24.1 ml/min; Globulin 3.2 gm/dl (2.5-4.0); Glucose 146.0 mg/dl (70-99(Fasting)); Potassium 4.0 mmol/L (3.5-5.1); Sodium 138.0 mmol/L (136-145); Total Protein 7.3 gm/dl (6.0-8.3)
[2025-03-09 18:31] LABS: INR 1.1 (0.9-1.1); Partial Thromboplastin Time 33 Seconds (21-31); Prothrombin Time 11.6 Seconds (9.0-12.0)
--- NOTE | 2025-03-09 19:12 | Emergency Department Note ---
Impression & Plan ICD (implantable cardioverter-defibrillator) discharge, Acute on chronic systolic congestive heart failure, Atrial fibrillation and flutter ED Provider Note NAME: Earl ZACARIAS AGE: 84 SEX: M : 1940 ARRIVES VIA: Walk-In INFORMANT: Patient, ED PROVIDER(S): Nadine Wallis MD CHIEF COMPLAINT: Shortness of breath HPI:This is a 84-year-old male presenting for shortness of breath, chest pain. Patient notes over the past 1+ week he has had increasing shortness of breath. He feels weak, tired whenever he does ambulation or activities. He notes that he has having new chest pressure/pain. He reports no strength. ROS: See above HPI for pertinent positives & negatives. A total of 10 systems reviewed and were otherwise negative. PAST MEDICAL HISTORY: See Below PAST SURGICAL HISTORY: See Below FAMILY HISTORY: See Below SOCIAL HISTORY: See Below HOME MEDICATIONS: See Below ALLERGIES: See Below VITALS: See Below PHYSICAL EXAMINATION: General: resting comfortably in no acute distress Head: Normocephalic and atraumatic Eyes: Normal inspection, extraocular muscles intact Ear, nose, throat: Normal external exam Neck: Normal range of motion Respiratory: lungs clear to auscultation bilaterally Cardiovascular: Regular rate/rhythm, no murmur GI: soft, nontender, no guarding or rebound Extremities: nontender, moves all extremities Neuro: The patient awake and alert, appropriately conversive, no focal deficits, symmetric faces Skin: Warm, dry, and intact MEDICAL DECISION MAKING: This an 84-year-old male presenting for shortness of breath/chest pain. 1+ week history. Exertional. Will do screening EKG, chest x-ray, blood work. Will get pacemaker interrogation. Patient not currently hypoxic or tachycardic low concern for PE -Patient episode of defibrillation 2 days ago, likely AVNRT, thought less likely to be VT by pacemaker vendor representatives. Has new increasing episodes of atrial flutter; or 5 hours/day -Chest x-ray reveals congestive changes, similar to previous -Blood work reveals pancytopenia and creatinine of 2.5. These values are generally stable -No electrolyte disturbances -Troponin minimally elevated at 24, less than previous values -Based on patient increasing shortness of breath, new/worsening atrial flutter, will admit the patient for further control as well as possible CHF -Care discussed with Dr Miramontes for admission Differential diagnosis: ACS, CHF, PE, pneumonia Diagnostics interpreted by me: ECG: None Cardiac Monitoring: An order was placed for continuous cardiac monitoring. The monitor shows a rate of 70 with sinus rhythm. Past Med/Surg History Problem List (Updated 03/11/25 @ 21:13 by Nadine Wallis MD) Atrial fibrillation and flutter (Acute) ICD (implantable cardioverter-defibrillator) discharge (Acute) ICD (implantable cardioverter-defibrillator) in place History of bacteremia Arrhythmia Allergic drug rash due to anti-infective agent Wound of left foot Acute on chronic systolic congestive heart failure (Acute) Demand ischemia Streptococcal bacteremia Severe sepsis with acute organ dysfunction Diarrhea Thrombocytopenia Acute systolic heart failure Ascites Hyperkalemia Elevated troponin level Elevated liver function tests Hepatopathy Acute lactic acidosis Pulmonary edema (Acute) Sepsis (Acute) Elevated brain natriuretic peptide (BNP) level (Acute) Non-ST elevation NV (NSTEMI) (Acute) Acute exacerbation of CHF (congestive heart failure) (Acute) Acute hypoxemic respiratory failure (Acute) Acute dyspnea (Acute) Prostate cancer (Chronic 05/02/24) Rectal bleeding Elevated lactic acid level (Acute) Aspiration pneumonia of left lower lobe (Acute) Small bowel obstruction (Acute) Incarcerated umbilical hernia (Acute) Small bowel obstruction Incarcerated umbilical hernia Elevated prostate specific antigen (PSA) Hypomagnesemia (Acute) VENITA (acute kidney injury) (Acute) Stroke-like symptoms (Acute) Transient vision disturbance of both eyes Peripheral arterial disease Urinary symptom or sign Ventricular tachycardia (Acute) Defibrillator discharge (Acute) History of left shoulder replacement (Chronic) History of inguinal hernia repair (Chronic) "195" H/O lithotripsy (Chronic) History of right shoulder replacement (Chronic) "2009" History of total right knee replacement (Chronic) "2004 " 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" Chronic anticoagulation (Chronic) 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) Gout (Chronic) Atrial septal aneurysm (Chronic) PFO (patent foramen ovale) (Chronic) BHUPINDER (obstructive sleep apnea) (Chronic) "not on CPAP" DM type 2 (diabetes mellitus, type 2) (Chronic) Dyslipidemia (Chronic) HTN (hypertension) (Chronic) Mitral regurgitation (Chronic) History of cardioembolic stroke (Chronic) Paroxysmal atrial fibrillation (Chronic) "postoperative" Ischemic cardiomyopathy (Chronic) "prior EF 35-40% in August 2008; improved EF 50-54% on 11/24/16 echo" Medical History (Updated 03/11/25 @ 21:13 by Nadine Wallis MD) Streptococcemia Acute kidney injury superimposed on stage 3b chronic kidney disease History of aspiration pneumonia admitted to [facility] 04/2024 Ischemic cardiomyopathy "prior EF 35-40% in August 2008; improved EF 50-54% on 11/24/16 echo" Paroxysmal atrial fibrillation hx--"postoperative" History of cardioembolic stroke ~2016, 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 Mitral regurgitation follows w/ Dr Hyde HTN (hypertension) Dyslipidemia Diabetes mellitus no meds currently BHUPINDER (obstructive sleep apnea) no device PFO (patent foramen ovale) Atrial septal defect Gout Diabetic neuropathy Chronic anticoagulation Hx of renal calculi Hx of ventricular tachycardia Transient vision disturbance of both eyes Peripheral artery disease Rectal bleeding Bowel obstruction (04/2024) recent admission to [facility] DJD of left shoulder Surgical History (Updated 10/02/24 @ 00:06 by Tarah Perez) 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" History of total right knee replacement (2004) History of lithotripsy Hx of inguinal hernia repair (1954) Hx of colonoscopy History of right shoulder replacement (2009) History of left shoulder replacement AICD present, double chamber [employer], implanted 2018 Family History Brother V-tach required AICD Social History Smoking Status: Never smoker Second Hand Exposure: No; Do You Dip or Chew Tobacco: No; Hx Alcohol Use: No Hx Substance Use: No Preferred Language: Malay Communication Ability: Effective Visual Impairment: No Limitations Hearing Ability: Normal Tugboat Operator Required: No Beliefs That Will Affect Care: None marital status: Single Current Living Situation: Alone Current Living Situation Comment: home alone, daughter lives 12 miles away current occupational status: retired Other Information That Helps Us Care for You: No Feels Safe at Home: Yes Safety Concerns: Feels Safe At This Time Diet: regular during the past year weight has: decreased > 10 lbs Assistive Devices: Walker Allergies Allergies Allergy/AdvReac Type Severity Reaction Status Date / Time cefazolin Allergy Intermediate Rash Verified 03/09/25 19:39 ceftriaxone Allergy Intermediate Rash Verified 03/09/25 19:39 lisinopril AdvReac Mild COUGHING Verified 03/09/25 19:39 Home Meds Home Medications Medication Instructions Recorded Confirmed [place] Erma Extract Capsule 150 mg PO DAILY 03/09/25 03/09/25 amiodarone 200 mg tablet 200 mg PO BID 03/09/25 03/09/25 bicalutamide 50 mg tablet (Casodex) 50 mg PO DAILY 03/09/25 03/09/25 capsaicin 0.1 % topical cream 1 applic topical BID 03/09/25 03/09/25 cholecalciferol (vitamin D3) 25 50 mcg PO DAILY 03/09/25 03/09/25 mcg (1,000 unit) capsule (Vitamin D3) ferrous sulfate 325 mg (65 mg 325 mg PO DAILY 03/09/25 03/09/25 iron) tablet (iron) fish, borage, flaxseed oils-omega 1 cap PO QAM 03/09/25 03/09/25 3,6,9 comb no.1 1,200 mg capsule ([place] 3-6-9) furosemide 40 mg tablet (Lasix) 40 mg PO BID 03/09/25 03/09/25 levothyroxine 112 mcg tablet 112 mcg PO DAILYBB 03/09/25 03/09/25 multivitamin 1 tab PO DAILY 03/09/25 03/09/25 nitroglycerin 0.4 mg sublingual 0.4 mg sublingual DIRECTED PRN 03/09/25 03/09/25 tablet (Nitrostat) Chest Pain nystatin 100,000 unit/gram topical 1 applic topical BID PRN NEEDED 03/09/25 03/09/25 powder (Nystop) ondansetron 8 mg disintegrating 8 mg translingual Q8H PRN 03/09/25 03/09/25 tablet NAUSEA/VOMITING Previous Rx's Medication Instructions Recorded acetaminophen 500 mg tablet 1,000 mg (2 x 500 mg) PO Q8H PRN 09/15/24 (Tylenol Extra Strength) fever or pain #100 tabs apixaban 2.5 mg tablet 2.5 mg PO BID #60 tabs 09/15/24 clopidogrel 75 mg tablet (Plavix) 75 mg PO DAILY #30 tabs 09/15/24 potassium chloride 20 mEq 20 meq PO BID #60 tabs 09/15/24 tablet,extended release(part/cryst) tamsulosin 0.4 mg capsule 0.4 mg PO DAILY #30 caps 09/15/24 Results & Data (ED) Vital Signs Vital Signs - 24 hr 03/09/25 17:34 03/09/25 18:21 03/09/25 19:19 Temperature 36.5 C Temperature Source Temporal Artery Scan Pulse Rate 87 81 Pulse Rate [Apical] 70 Pulse Rhythm [Apical] Regular Pulse Strength [Apical] Normal Respiratory Rate 18 18 Respiratory Effort / Characteristics Non-Labored Spontaneous Non-Labored Respiratory Depth Normal Normal Respiratory Pattern Regular Regular Blood Pressure 125/77 Blood Pressure [Right Arm] 111/74 Blood Pressure Mean 93 Blood Pressure Mean [Right Arm] 86 Blood Pressure Position [Right Arm] Sitting Pulse Oximetry 97 96 Oxygen Delivery Method Room Air Room Air Sepsis Recent Fever Within 48 Hours No Sepsis New/Unexplained Change in Mental Status N/A Sepsis Action Taken by Nursing No Action Required 03/09/25 21:00 03/09/25 22:12 Temperature Temperature Source Pulse Rate 70 Pulse Rate [Apical] 70 Pulse Rhythm [Apical] Regular Pulse Strength [Apical] Normal Respiratory Rate 18 Respiratory Effort / Characteristics Non-Labored Respiratory Depth Normal Respiratory Pattern Regular Blood Pressure Blood Pressure [Right Arm] 114/79 Blood Pressure Mean Blood Pressure Mean [Right Arm] 90 Blood Pressure Position [Right Arm] Lying Pulse Oximetry 98 Oxygen Delivery Method Room Air Sepsis Recent Fever Within 48 Hours Sepsis New/Unexplained Change in Mental Status Sepsis Action Taken by Nursing Laboratory Data 03/11/25 07:16 03/11/25 07:16 Lab Results 03/09/25 03/09/25 Range/Units 17:48 19:31 WBC 4.66 L (4.8-10.8) K/ul RBC 3.17 L (4.70-6.10) M/uL Hgb 9.2 L (14.0-18.0) g/dl Hct 29.3 L (42.0-52.0) % MCV 92.4 (80.0-100.0) fL MCH 29.0 (25.0-34.0) pg MCHC 31.4 L (32.0-36.0) g/dL RDW Std Deviation 65.2 H (36.4-46.3) fL RDW Coeff of Perez 19.1 H (11.5-14.5) % Plt Count 118 L (130-400) K/uL MPV 10.1 (9.4-12.4) fL Immature Gran % (Auto) 0.2 % Neut % (Auto) 72.3 % Lymph % (Auto) 17.6 % Hendricks % (Auto) 6.2 % Eos % (Auto) 2.6 % Baso % (Auto) 1.1 % Neut # (Auto) 3.37 (1.40-6.50) K/uL Lymph # (Auto) 0.82 L (1.20-3.40) K/uL Hendricks # (Auto) 0.29 (0.11-0.59) K/uL Eos # (Auto) 0.12 (0.00-0.50) K/uL Baso # (Auto) 0.05 (0.00-0.20) K/uL Immature Gran # (Auto) 0.01 (0.01-0.20) K/uL PT 11.6 (9.0-12.0) Seconds INR 1.1 (0.9-1.1) APTT 33 H (21-31) Seconds PTT Ratio 1.2 Sodium 138 (136-145) mmol/L Potassium 4.0 (3.5-5.1) mmol/L Chloride 103 (98-107) mmol/L Carbon Dioxide 26 (21-32) mmol/L Anion Gap 9 (3-11) BUN 45 H (6-23) mg/dl Creatinine 2.52 H (0.6-1.4) mg/dl Est Cr Clr Drug Dosing 24.1 ml/min eGFR 24.79 BUN/Creatinine Ratio 17.9 (10-20) Glucose 146 H (70-99(Fasting)) mg/dl Calcium 9.4 (8.6-10.3) mg/dl Total Bilirubin 1.7 H (0.2-1.0) mg/dl AST 17 (13-39) U/L ALT 17 (7-52) U/L Alkaline Phosphatase 95 (34-104) U/L Troponin I High Sens 27.3 H 25.2 H (0-20) pg/ml Total Protein 7.3 (6.0-8.3) gm/dl Albumin 4.1 (3.4-5.0) gm/dl Globulin 3.2 (2.5-4.0) gm/dl Albumin/Globulin Ratio 1.3 (0.9-2) Administered Medications Acetaminophen (Acetaminophen 325 Mg Tab) 650 mg PO Q4H PRN PRN Reason: Pain or Fever Stop: 04/08/25 23:46 Last Admin: 03/11/25 19:48 Dose: 650 mg Documented By: Admin: 03/11/25 12:56 Dose: 650 mg Documented By: VANIA Amiodarone HCl (Amiodarone 200 Mg Tab) 200 mg PO BID [facility] Stop: 04/08/25 23:46 Last Admin: 03/11/25 09:40 Dose: 200 mg Documented By: Admin: 03/10/25 21:28 Dose: 200 mg Documented By: Admin: 03/10/25 09:53 Dose: 200 mg Documented By: MARY JO Admin: 03/10/25 00:29 Dose: 200 mg Documented By: BRIANNE Amoxicillin/Clavulanate Potassium (Amoxicillin/Clavulanate 500 Mg Tab) 1 tab PO BIDM [facility]; Protocol Stop: 03/15/25 16:59 Last Admin: 03/11/25 18:36 Dose: 1 tab Documented By: Admin: 03/11/25 10:01 Dose: 1 tab Documented By: Admin: 03/10/25 16:50 Dose: 1 tab Documented By: MARY JO Apixaban (Apixaban 2.5 Mg Tab) 2.5 mg PO BID [facility] Stop: 04/08/25 23:46 Last Admin: 03/11/25 09:43 Dose: 2.5 mg Documented By: Admin: 03/10/25 21:28 Dose: 2.5 mg Documented By: Admin: 03/10/25 09:54 Dose: 2.5 mg Documented By: MARY JO Admin: 03/10/25 00:30 Dose: 2.5 mg Documented By: BRIANNE Bicalutamide (Bicalutamide 50 Mg Tab) 50 mg PO DAILY [facility] Stop: 04/09/25 08:59 Last Admin: 03/11/25 09:40 Dose: 50 mg Documented By: VANIA Co-signed By: ABDULAZIZ Admin: 03/10/25 09:53 Dose: 50 mg Documented By: MARY JO Co-signed By: ABDULAZIZ Capsaicin (Capsaicin Cr 0.075% 60 Gm Tube) 1 appln EXT BID MELANI Stop: 04/09/25 08:59 Last Admin: 03/11/25 09:44 Dose: 1 appln Documented By: Admin: 03/10/25 21:29 Dose: 1 appln Documented By: Admin: 03/10/25 18:44 Dose: Not Given Documented By: Clopidogrel Bisulfate (Clopidogrel Bisulfate 75 Mg Tab) 75 mg PO DAILY MELANI Stop: 04/09/25 08:59 Last Admin: 03/11/25 10:52 Dose: 75 mg Documented By: Admin: 03/10/25 09:54 Dose: 75 mg Documented By: Doxycycline Hyclate (Doxycycline Hyclate 100 Mg Cap) 100 mg PO BID@1000,2100 MELANI Stop: 03/15/25 20:59 Last Admin: 03/11/25 09:41 Dose: 100 mg Documented By: Admin: 03/10/25 21:28 Dose: 100 mg Documented By: BRIANNE Ferrous Sulfate (Ferrous Sulfate 325 Mg Tab) 325 mg PO DAILY MELANI Stop: 04/09/25 08:59 Last Admin: 03/11/25 09:41 Dose: 325 mg Documented By: Admin: 03/10/25 09:54 Dose: 325 mg Documented By: Furosemide (Furosemide 40 Mg/4 Ml Vial) 80 mg IV Q8 MELANI Stop: 04/09/25 16:04 Last Admin: 03/11/25 13:51 Dose: 80 mg Documented By: Admin: 03/11/25 06:26 Dose: 80 mg Documented By: Admin: 03/10/25 21:29 Dose: 80 mg Documented By: Admin: 03/10/25 16:50 Dose: 80 mg Documented By: Insulin Aspart (Insulin Aspart Per Unit Charge) 0 units SC ACHS MELANI Stop: 04/10/25 11:29 Last Admin: 03/11/25 17:40 Dose: Not Given Documented By: Admin: 03/11/25 12:46 Dose: 1 units Documented By: VANIA Co-signed By: ABDULAZIZ Levothyroxine Sodium (Levothyroxine Sodium 112 Mcg Tablet) 112 mcg PO DAILYBB MELANI Stop: 04/09/25 06:29 Last Admin: 03/11/25 06:26 Dose: 112 mcg Documented By: Admin: 03/10/25 06:35 Dose: 112 mcg Documented By: BRIANNE Multivitamins (Multivitamin Tab) 1 tab PO DAILY MELANI Stop: 04/09/25 08:59 Last Admin: 03/11/25 09:42 Dose: 1 tab Documented By: Admin: 03/10/25 09:54 Dose: 1 tab Documented By: MARY JO Potassium Chloride (Potassium Chloride Crtab 20 Meq Tabcr) 20 meq PO BID MELANI Stop: 04/09/25 08:59 Last Admin: 03/11/25 10:52 Dose: 20 meq Documented By: Admin: 03/10/25 21:28 Dose: 20 meq Documented By: Admin: 03/10/25 09:58 Dose: 20 meq Documented By: MARY JO Tamsulosin HCl (Tamsulosin Hcl 0.4 Mg Cap) 0.4 mg PO DAILY MELANI Stop: 04/09/25 08:59 Last Admin: 03/11/25 09:42 Dose: 0.4 mg Documented By: Admin: 03/10/25 09:54 Dose: 0.4 mg Documented By: MARY JO Vitamin D (Cholecalciferol 25 Mcg (1000 Units) Tab) 50 mcg PO DAILY MELANI Stop: 04/09/25 08:59 Last Admin: 03/11/25 09:41 Dose: 50 mcg Documented By: Admin: 03/10/25 09:54 Dose: 50 mcg Documented By: MARY JO Discontinued Medications Furosemide (Furosemide 40 Mg Tab) 40 mg PO BID@0900,1200 MELANI Stop: 04/09/25 08:59 Last Admin: 03/10/25 12:38 Dose: 40 mg Documented By: MARY JO Admin: 03/10/25 09:54 Dose: 40 mg Documented By: MARY JO Insulin Aspart (Insulin Aspart Per Unit Charge) 0 units SC Q6 MELANI Stop: 04/09/25 00:29 Last Admin: 03/11/25 09:39 Dose: Not Given Documented By: Admin: 03/11/25 00:09 Dose: 1 units Documented By: BRIANNE Co-signed By: SOFIA Admin: 03/10/25 17:22 Dose: 1 units Documented By: MARY JO Co-signed By: AMY Admin: 03/10/25 12:38 Dose: 3 units Documented By: MARY JO Co-signed By: ABDULAZIZ Admin: 03/10/25 06:12 Dose: Not Given Documented By: Admin: 03/10/25 00:28 Dose: 1 units Documented By: BRIANNE Co-signed By: OLY Imaging Data Radiologist's Impression: Chest X-Ray 03/09/25 17:37 EXAM: Portable AP chest radiograph TECHNIQUE: AP portable radiograph of the chest was obtained. INDICATION: Chest pain Comparison: Chest radiograph September 11, 2024 FINDINGS: LINES and TUBES: Left-sided cardiac ICD with leads projecting over the right atrium and the right ventricle of the heart. CARDIOVASCULAR: Cardiac silhouette is stably and significantly enlarged in size with redemonstrated post CABG changes. LUNGS/PLEURA: Interstitial pulmonary edema is similar to previous. No focal consolidation identified. Small pleural fluids are likely and appear unchanged. No discernible pneumothorax. OSSEOUS/OTHER: No displaced acute osseous process identified. Bilateral reverse shoulder arthroplasties. IMPRESSION: Similar congestive changes of the cardiovascular system. Electronically signed by Tam Yeung 03-09-2025 7:11 PM Discharge Plan Visit Data Chief Complaint: Referred by Doctor Stated Complaint: REF BY DOC,SOB,WEAKNESS ED Provider: Nadine Wallis Discharge Problem: ICD (implantable cardioverter-defibrillator) discharge, Acute on chronic systolic congestive heart failure, Atrial fibrillation and flutter Patient Disposition: Admitted As Inpatient Condition: Fair Discharge Instructions Interventions: ED Discharge Assessment Last Done: 03/09/25 23:25
--- NOTE | 2025-03-09 23:07 | History & Physical Report ---
Date of Service March 09, 2025 Assessment & Plan (1) Arrhythmia: Plan: 84-year-old male with past medical history significant for type 2 diabetes, dyslipidemia, gout, hypothyroidism, obstructive sleep apnea intolerant to CPAP, paroxysmal atrial fibrillation, history of VT, CKD stage III, peripheral artery disease, left vertebral artery stenosis, chronic systolic CHF, status post AICD, protein calorie malnutrition, cirrhosis of liver with ascites, prostate cancer, scrotal swelling, history of CVA, anemia, history of left arm DVT in 2018, atrial septal aneurysm, CAD s/p CABG in 2016 who lives alone at home ambulates with a walker comes because of weakness and ICD shock. Patient is having ongoing weakness for a week. Couple of nights ago he had ICD shock which patient is not aware of. The next day he got a call from [employer] that had a ICD shock. As per the ER he seems to had heart rate in 200s with atrioventricular reentry tachycardia arrhythmia at the time of the the shock. As per the ICD interrogations patient seems to having A.flutter daily for several hours. Currently patient resting comfortably. Has some soreness in the chest.. Denies any shortness of breath currently. Seems to having shortness of breath on exertion. Denies any headache. Vision is okay. No runny nose or sore throat. No cough. Appetite is very poor. No difficulty swallowing. No nausea. No abdominal pain. Normal bowel and bladder movements.Patient states his lower extremity edema is better than before. Hemodynamics are okay. Patient state his younger brother recently. Daughter lives 10 miles away from him but she is out of town currently. Arrhythmia Couple of nights ago his ICD delivered shock which the patient is not aware. Seems his heart rates were in 200s with atrioventricular reentrant tachycardia Also he is in a flutter frequently Currently hemodynamics are okay Will follow echo Monitoring daily Cardiac consult in a.m. for further recommendations Weakness Possible from above Will monitor VENITA on CKD stage III Baseline creatinine 2-2.3 Creatinine 2.5 today Will follow repeat labs in a.m. continue home lasix for now Avoid nephrotoxic agents. History of prostate cancer S/p radiation treatment completed in August 2024 Could not tolerate Firmagon On Casodex Follows with heme-onc Anemia Hemoglobin 9.2 around baseline Follows with heme-onc History of pneumonia and sepsis with organ dysfunction and bacteremia with group B streptococcus in August 2024 Treated with antibiotics Chronic systolic CHF EF 25 to 29% on echo in August 2024 Will continue his home Lasix with potassium supplement Monitor for volume overload CAD s/p CABG On Eliquis and Plavix Paroxysmal atrial fibrillation On amiodarone and Eliquis History of sustained ventricular tachycardia status post dual-chamber ICD on 02/14/2019 On amiodarone Peripheral artery disease Unsuccessful antegrade and retrograde attempts made at right tibial intervention On Plavix and Eliquis thrombocytopenia platelets 118 will follow labs. History of atrial septal aneurysm Patent foramen ovale Hypothyroidism On Synthyroid Diabetes Not on meds Will place on sliding scale Will follow HbA1c levels Sleep apnea Seems could not tolerate CPAP DVT prophylaxis On Eliquis Disposition Telemetry CODE STATUS okay for CPR and shocks but no artificial ventilation as per my discussion with the patient. History of Present Illness Chief Complaint: Weakness, status post ICD shock Primary Care Provider: Sandra Judge MD 84-year-old male with past medical history significant for type 2 diabetes, dyslipidemia, gout, hypothyroidism, obstructive sleep apnea intolerant to CPAP, paroxysmal atrial fibrillation, history of VT, CKD stage III, peripheral artery disease, left vertebral artery stenosis, chronic systolic CHF, status post AICD, protein calorie malnutrition, cirrhosis of liver with ascites, prostate cancer, scrotal swelling, history of CVA, anemia, history of left arm DVT in 2017, atrial septal aneurysm, CAD s/p CABG in 2016 who lives alone at home ambulates with a walker comes because of weakness and ICD shock. Patient is having ongoing weakness for a week. Couple of nights ago he had ICD shock which patient is not aware of. The next day he got a call from [employer] that had a ICD shock. As per the ER he seems to had heart rate in 200s with atrioventricular reentry tachycardia arrhythmia at the time of the the shock. As per the ICD interrogations patient seems to having A.flutter daily for several hours. Currently patient resting comfortably. Has some soreness in the chest.. Denies any shortness of breath currently. Seems to having shortness of breath on exertion. Denies any headache. Vision is okay. No runny nose or sore throat. No cough. Appetite is very poor. No difficulty swallowing. No nausea. No abdominal pain. Normal bowel and bladder movements.Patient states his lower extremity edema is better than before. Hemodynamics are okay. Patient state his younger brother recently. Daughter lives 10 miles away from him but she is out of town currently. Past medical history. As mentioned above Past surgical history. Right total knee arthroplasty. H. Colonoscopy. Right shoulder reconstruction. Left shoulder reconstruction. Lithotripsy. Repair of inguinal hernia. Social history. No smoking. No alcohol use. No drug use. Family history. Mother had diabetes. CHF. Brother had MN. Sister has Crohn's disease. Daughter has Crohn's. Allergies Allergy/AdvReac Type Severity Reaction Status Date / Time cefazolin Allergy Intermediate Rash Verified 03/09/25 19:39 ceftriaxone Allergy Intermediate Rash Verified 03/09/25 19:39 lisinopril AdvReac Mild COUGHING Verified 03/09/25 19:39 Home Medications Medication Instructions Recorded Confirmed Type acetaminophen 500 mg tablet 1,000 mg (2 x 500 mg) PO Q8H PRN 09/15/24 03/09/25 Rx (Tylenol Extra Strength) fever or pain #100 tabs apixaban 2.5 mg tablet 2.5 mg PO BID #60 tabs 09/15/24 03/09/25 Rx clopidogrel 75 mg tablet (Plavix) 75 mg PO DAILY #30 tabs 09/15/24 03/09/25 Rx potassium chloride 20 mEq 20 meq PO BID #60 tabs 09/15/24 03/09/25 Rx tablet,extended release(part/cryst) tamsulosin 0.4 mg capsule 0.4 mg PO DAILY #30 caps 09/15/24 03/09/25 Rx [place] Extract Capsule 150 mg PO DAILY 03/09/25 03/09/25 History amiodarone 200 mg tablet 200 mg PO BID 03/09/25 03/09/25 History bicalutamide 50 mg tablet (Casodex) 50 mg PO DAILY 03/09/25 03/09/25 History capsaicin 0.1 % topical cream 1 applic topical BID 03/09/25 03/09/25 History cholecalciferol (vitamin D3) 25 50 mcg PO DAILY 03/09/25 03/09/25 History mcg (1,000 unit) capsule (Vitamin D3) ferrous sulfate 325 mg (65 mg 325 mg PO DAILY 03/09/25 03/09/25 History iron) tablet (iron) fish, borage, flaxseed oils-omega 1 cap PO QAM 03/09/25 03/09/25 History 3,6,9 comb no.1 1,200 mg capsule (Angie 3-6-9) furosemide 40 mg tablet (Lasix) 40 mg PO BID 03/09/25 03/09/25 History levothyroxine 112 mcg tablet 112 mcg PO DAILYBB 03/09/25 03/09/25 History multivitamin 1 tab PO DAILY 03/09/25 03/09/25 History nitroglycerin 0.4 mg sublingual 0.4 mg sublingual DIRECTED PRN 03/09/25 03/09/25 History tablet (Nitrostat) Chest Pain nystatin 100,000 unit/gram topical 1 applic topical BID PRN NEEDED 03/09/25 03/09/25 History powder (Nystop) ondansetron 8 mg disintegrating 8 mg translingual Q8H PRN 03/09/25 03/09/25 History tablet NAUSEA/VOMITING Past Med/Surg History Problem List (Updated 03/09/25 @ 23:28 by Facundo Miramontes MD) Arrhythmia Allergic drug rash due to anti-infective agent Wound of left foot Acute on chronic systolic congestive heart failure [place]and ischemia Streptococcal bacteremia Severe sepsis with acute organ dysfunction Diarrhea Thrombocytopenia Acute systolic heart failure Ascites Hyperkalemia Elevated troponin level Elevated liver function tests Hepatopathy Acute lactic acidosis Pulmonary edema (Acute) Sepsis (Acute) Elevated brain natriuretic peptide (BNP) level (Acute) Non-ST elevation MN (NSTEMI) (Acute) Acute exacerbation of CHF (congestive heart failure) (Acute) Acute hypoxemic respiratory failure (Acute) Acute dyspnea (Acute) Prostate cancer (Chronic 05/02/24) Rectal bleeding Elevated lactic acid level (Acute) Aspiration pneumonia of left lower lobe (Acute) Small bowel obstruction (Acute) Incarcerated umbilical hernia (Acute) Small bowel obstruction Incarcerated umbilical hernia Elevated prostate specific antigen (PSA) Hypomagnesemia (Acute) VENITA (acute kidney injury) (Acute) Stroke-like symptoms (Acute) Transient vision disturbance of both eyes Peripheral arterial disease Urinary symptom or sign Ventricular tachycardia (Acute) Defibrillator discharge (Acute) History of left shoulder replacement (Chronic) History of inguinal hernia repair (Chronic) "1955" H/O lithotripsy (Chronic) History of right shoulder replacement (Chronic) "2009" History of total right knee replacement (Chronic) "2004 " 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" Chronic anticoagulation (Chronic) 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) Gout (Chronic) Atrial septal aneurysm (Chronic) PFO (patent foramen ovale) (Chronic) BHUPINDER (obstructive sleep apnea) (Chronic) "not on CPAP" DM type 2 (diabetes mellitus, type 2) (Chronic) Dyslipidemia (Chronic) HTN (hypertension) (Chronic) Mitral regurgitation (Chronic) History of cardioembolic stroke (Chronic) Paroxysmal atrial fibrillation (Chronic) "postoperative" Ischemic cardiomyopathy (Chronic) "prior EF 35-40% in August 2008; improved EF 50-54% on 11/24/16 echo" Medical History (Updated 03/09/25 @ 23:28 by Facundo Miramontes MD) Streptococcemia Acute kidney injury superimposed on stage 3b chronic kidney disease History of aspiration pneumonia admitted to [facility] 04/2024 Ischemic cardiomyopathy "prior EF 35-40% in August 2008; improved EF 50-54% on 11/24/16 echo" Paroxysmal atrial fibrillation hx--"postoperative" History of cardioembolic stroke ~2016, 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 Mitral regurgitation follows w/ Dr Hyde HTN (hypertension) Dyslipidemia Diabetes mellitus no meds currently BHUPINDER (obstructive sleep apnea) no device PFO (patent foramen ovale) Atrial septal defect Gout Diabetic neuropathy Chronic anticoagulation Hx of renal calculi Hx of ventricular tachycardia Transient vision disturbance of both eyes Peripheral artery disease Rectal bleeding Bowel obstruction (04/2024) recent admission to [facility] DJD of left shoulder Surgical History (Updated 10/02/24 @ 00:06 by Tarah Perez) 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" History of total right knee replacement (2004) History of lithotripsy Hx of inguinal hernia repair (1954) Hx of colonoscopy History of right shoulder replacement (2009) History of left shoulder replacement AICD present, double chamber [employer], implanted 2018 Family History Brother V-tach required AICD Social History Smoking Status: Never smoker Second Hand Exposure: No; Do You Dip or Chew Tobacco: No; Hx Alcohol Use: No Hx Substance Use: No Preferred Language: Mongolian Communication Ability: Effective Visual Impairment: No Limitations Hearing Ability: Normal Patient Consumer Marketer Required: No Beliefs That Will Affect Care: None marital status: Single Current Living Situation: Alone Current Living Situation Comment: home alone, daughter lives 12 miles away current occupational status: retired Other Information That Helps Us Care for You: No Feels Safe at Home: Yes Safety Concerns: Feels Safe At This Time Diet: regular during the past year weight has: decreased > 10 lbs Assistive Devices: Walker Review of Systems Review of Systems: All systems reviewed & are unremarkable except as noted in HPI & below Physical Exam Physical Exam: General- Not in distress Head- atraumatic Eyes- PERRL. ENT- oropharynx clear Neck- supple, no JVD. Lungs- clear to auscultation no wheezing or crackles Heart- regular rhythm; no murmur, no gallop. Abdomen- normal bowel sounds, soft, nontender, no distension Extremities- b/l lower extremity edema present, no erythema seen. Neuro- alert, oriented PERRL, no facial palsy; no dysarthria; moves extremities Results & Data Results & Data Vital Signs (Past 12 Hours) Vital Signs Temp Pulse Pulse Resp BP BP Pulse Ox 03/09/25 22:12 70 03/09/25 21:00 70 18 114/79 98 03/09/25 19:19 70 18 111/74 96 03/09/25 18:21 81 03/09/25 17:34 36.5 C 87 18 125/77 97 O2 Del Method 03/09/25 22:12 03/09/25 21:00 Room Air 03/09/25 19:19 Room Air 03/09/25 18:21 03/09/25 17:34 Room Air Diagnostic Findings Laboratory Results WBC 4.66 K/ul (4.8-10.8) L 03/09/25 17:48 RBC 3.17 M/uL (4.70-6.10) L 03/09/25 17:48 Hgb 9.2 g/dl (14.0-18.0) L 03/09/25 17:48 Hct 29.3 % (42.0-52.0) L 03/09/25 17:48 MCV 92.4 fL (80.0-100.0) 03/09/25 17:48 MCH 29.0 pg (25.0-34.0) 03/09/25 17:48 MCHC 31.4 g/dL (32.0-36.0) L 03/09/25 17:48 RDW Std Deviation 65.2 fL (36.4-46.3) H 03/09/25 17:48 RDW Coeff of Perez 19.1 % (11.5-14.5) H 03/09/25 17:48 Plt Count 118 K/uL (130-400) L 03/09/25 17:48 MPV 10.1 fL (9.4-12.4) 03/09/25 17:48 Immature Gran % (Auto) 0.2 % 03/09/25 17:48 Neut % (Auto) 72.3 % 03/09/25 17:48 Lymph % (Auto) 17.6 % 03/09/25 17:48 [place] % (Auto) 6.2 % 03/09/25 17:48 Eos % (Auto) 2.6 % 03/09/25 17:48 Baso % (Auto) 1.1 % 03/09/25 17:48 Neut # (Auto) 3.37 K/uL (1.40-6.50) 03/09/25 17:48 Lymph # (Auto) 0.82 K/uL (1.20-3.40) L 03/09/25 17:48 [place] # (Auto) 0.29 K/uL (0.11-0.59) 03/09/25 17:48 Eos # (Auto) 0.12 K/uL (0.00-0.50) 03/09/25 17:48 Baso # (Auto) 0.05 K/uL (0.00-0.20) 03/09/25 17:48 Immature Gran # (Auto) 0.01 K/uL (0.01-0.20) 03/09/25 17:48 PT 11.6 Seconds (9.0-12.0) 03/09/25 17:48 INR 1.1 (0.9-1.1) 03/09/25 17:48 APTT 33 Seconds (21-31) H 03/09/25 17:48 PTT Ratio 1.2 03/09/25 17:48 Sodium 138 mmol/L (136-145) 03/09/25 17:48 Potassium 4.0 mmol/L (3.5-5.1) 03/09/25 17:48 Chloride 103 mmol/L (98-107) 03/09/25 17:48 Carbon Dioxide 26 mmol/L (21-32) 03/09/25 17:48 Anion Gap 9 (3-11) 03/09/25 17:48 BUN 45 mg/dl (6-23) H 03/09/25 17:48 Creatinine 2.52 mg/dl (0.6-1.4) H 03/09/25 17:48 Est Cr Clr Drug Dosing 24.1 ml/min 03/09/25 17:48 eGFR 24.79 03/09/25 17:48 BUN/Creatinine Ratio 17.9 (10-20) 03/09/25 17:48 Glucose 146 mg/dl (70-99(Fasting)) H 03/09/25 17:48 Calcium 9.4 mg/dl (8.6-10.3) 03/09/25 17:48 Total Bilirubin 1.7 mg/dl (0.2-1.0) H 03/09/25 17:48 AST 17 U/L (13-39) 03/09/25 17:48 ALT 17 U/L (7-52) 03/09/25 17:48 Alkaline Phosphatase 95 U/L (34-104) 03/09/25 17:48 Troponin I High Sens 25.2 pg/ml (0-20) H 03/09/25 19:31 Total Protein 7.3 gm/dl (6.0-8.3) 03/09/25 17:48 Albumin 4.1 gm/dl (3.4-5.0) 03/09/25 17:48 Globulin 3.2 gm/dl (2.5-4.0) 03/09/25 17:48 Albumin/Globulin Ratio 1.3 (0.9-2) 03/09/25 17:48 Impressions Chest X-Ray 03/09/25 17:37 EXAM: Portable AP chest radiograph TECHNIQUE: AP portable radiograph of the chest was obtained. INDICATION: Chest pain Comparison: Chest radiograph September 11, 2024 FINDINGS: LINES and TUBES: Left-sided cardiac ICD with leads projecting over the right atrium and the right ventricle of the heart. CARDIOVASCULAR: Cardiac silhouette is stably and significantly enlarged in size with redemonstrated post CABG changes. LUNGS/PLEURA: Interstitial pulmonary edema is similar to previous. No focal consolidation identified. Small pleural fluids are likely and appear unchanged. No discernible pneumothorax. OSSEOUS/OTHER: No displaced acute osseous process identified. Bilateral reverse shoulder arthroplasties. IMPRESSION: Similar congestive changes of the cardiovascular system. Electronically signed by Tam Yeung 03-09-2025 7:11 PM Code Status & VTE Plan VTE Prophylaxis Plan VTE Prophylaxis will be ordered: Yes
[2025-03-09] MEDS ORDERED: GLUCAGON FOR INJ 1 MG VIAL SQ PRN (23:47)
[2025-03-09] MEDS ORDERED: GLUCOSE 40% GEL 15 GM TUBE PO PRN (23:47)
[2025-03-09] MEDS ORDERED: NYSTATIN POWDER 15GM BTL EXT PRN (23:47)
[2025-03-09] MEDS ORDERED: DEXTROSE 50% 50 ML SYRINGE IV PRN (23:47)
[2025-03-09] MEDS ORDERED: GLUCOSE 10 TAB/TUBE PO PRN (23:47)
[2025-03-09] MEDS ORDERED: POLYETHYLENE (MIRALAX) 17 GM PACK PO PRN (23:47)
[2025-03-09] MEDS ORDERED: NITROGLYCERIN SL 0.4 MG/TAB TAB SL PRN (23:47)
[2025-03-09] MEDS ORDERED: CARBOHYDRATES FOR HYPOGLYCEMIA PO PRN (23:47)
[2025-03-10] MEDS: INSULIN ASPART PER UNIT CHARGE SC SCH (00:28)
[2025-03-10] MEDS: AMIODARONE 200 MG TAB PO SCH (00:29)
[2025-03-10] MEDS: APIXABAN 2.5 MG TAB PO SCH (00:30)
[2025-03-10 05:38] LABS: Hematocrit (blood only) 24.7 % (42.0-52.0); Hemoglobin 8.1 g/dl (14.0-18.0); Immature Granulocytes # (auto) 0.01 K/uL (0.01-0.20); Immature Granulocytes % (auto) 0.2 %; Mean Corpuscular Hemoglobin 30.0 pg (25.0-34.0); Mean Corpuscular Volume 91.5 fL (80.0-100.0); Platelet Count 103 K/uL (130-400); RDW Standard Deviation 63.6 fL (36.4-46.3); Red Blood Count 2.70 M/uL (4.70-6.10); White Blood Count 5.23 K/ul (4.8-10.8)
[2025-03-10 05:56] LABS: Anion Gap 10.0 (3-11); Blood Urea Nitrogen 45.0 mg/dl (6-23); Calcium 9.0 mg/dl (8.6-10.3); Carbon Dioxide 24.0 mmol/L (21-32); Chloride 106.0 mmol/L (98-107); Creatinine Clr Calc Pharmacy 25.4 ml/min; Glucose 134.0 mg/dl (70-99(Fasting)); Magnesium 2.1 mg/dl (1.7-2.4); Potassium 3.9 mmol/L (3.5-5.1); Sodium 140.0 mmol/L (136-145)
[2025-03-10] MEDS: LEVOTHYROXINE SODIUM 112 MCG TABLET PO SCH (06:35)
[2025-03-10 07:36] LABS: Hemoglobin A1C 6.5 % (4.5-5.6)
[2025-03-10] MEDS: BICALUTAMIDE 50 MG TAB PO SCH (09:53)
[2025-03-10] MEDS: FUROSEMIDE 40 MG TAB PO SCH (09:54)
[2025-03-10] MEDS: CHOLECALCIFEROL 25 MCG (1000 UNITS) TAB PO SCH (09:54)
[2025-03-10] MEDS: MULTIVITAMIN TAB PO SCH (09:54)
[2025-03-10] MEDS: CAPSAICIN CR 0.075% 60 GM TUBE EXT SCH (09:54)
[2025-03-10] MEDS: FERROUS SULFATE 325 MG TAB PO SCH (09:54)
[2025-03-10] MEDS: CLOPIDOGREL BISULFATE 75 MG TAB PO SCH (09:54)
[2025-03-10] MEDS: TAMSULOSIN HCL 0.4 MG CAP PO SCH (09:54)
[2025-03-10] MEDS: POTASSIUM CHLORIDE CRTAB 20 MEQ TABCR PO SCH (09:58)
[2025-03-10 11:34] LABS: Chlamydia pneumoniae PCR Not Detected (NotDetected); Coronavirus 229E PCR Not Detected (NotDetected); Coronavirus CoV-2 (COVID19)PCR Not Detected (NotDetected); Coronavirus HKU1 PCR Not Detected (NotDetected); Coronavirus NL63 PCR Not Detected (NotDetected); Coronavirus OC43PCR Not Detected (NotDetected); Human Metapneumovirus PCR Not Detected (NotDetected); Parainfluenza Virus 1 PCR Not Detected (NotDetected); Parainfluenza Virus 2 PCR Not Detected (NotDetected); Parainfluenza Virus 3 PCR Not Detected (NotDetected); Parainfluenza Virus 4 PCR Not Detected (NotDetected); Respiratory Syncytial VirusPCR Not Detected (NotDetected); Rhinovirus/Enterovirus PCR Not Detected (NotDetected)
--- NOTE | 2025-03-10 11:40 | Cardiology Consultation ---
<Statement entered by Bri Bray, - 03/10/25 16:10> I have reviewed the advanced practitioner's documentation and agree with the plan of care. I accept the responsibility for the associated risk. Pt seen in cardiology consultation due to acute on chronic heart failure with reduced EF-NYHA Class III-IV with ICM and recurrent VT with a recent ICD shock for VT a few days ago CT chest that I ordered revealed pulmonary edema respiratory panel was negative that i had ordered would check blood cultures given the history of bacteremia earlier this year and the fact that he feels very weak and feverish and decreased PO intake the VT episode probably prompted him into acute CHF Recommend lasix 80mg q 8 hours hold home PO lasix continue other home cardiac medications I discussed the case and my recommendations with the hospitalist over the TT and he agreed with my plan Date of Consultation March 10, 2025 Assessment & Plan (1) Defibrillator discharge: (2) Stroke-like symptoms: (3) History of bacteremia: (4) ICD (implantable cardioverter-defibrillator) in place: (5) Ventricular tachycardia: Plan - Heart rate and blood pressure currently well-controlled - ICD shock earlier this week previously reviewed at the time it occurred indicated appropriate management of ventricular dysrhythmia with ICD treatment - Brief interrogation of device today indicated normal function with no recurrent dysrhythmias requiring treatment - Patient reporting symptoms somewhat concerning for infectious process with shortness of breath, cough, and chills with facial flushing - Recommend obtaining viral panel - Chest x-ray indicating congestive process recommend CT chest for further evaluation -Given the bacteremia he had had earlier in the year with reported symptoms concerning for infection would also recommend ruling out bacteremia with blood cultures - Patient also reporting slurred speech for approximately 1 week prior to presentation would recommend getting an updated CT of the head to rule out any new ischemic changes given his history of cerebrovascular disease - Continue amiodarone, apixaban, clopidogrel, furosemide - May benefit from evaluation of PT OT given the reported weakness Case discussed with Dr. Bray. Please see attestation for additional recommendations. BLAKE Frank Department of Cardiology, [facility] This chart was completed in part utilizing Speech Voice Recognition Software. Grammatical errors, random word insertions, pronoun errors, and incomplete sentences are an occasional consequence of this system due to software limitations, ambient noise, and hardware issues. Any formal questions or concerns about the content, text, or information contained within the body of this dictation should be directly addressed to the provider for clarification. History of Present Illness Reason for Consultation: Weakness, ICD Shock Requesting Physician: Hospitalist Attending Physician: Raf Coronado MD History of Present Illness 84-year-old male seen in consultation today in regard to weakness with recent ICD shock. Reportedly came to the emergency room yesterday reporting progressive weakness with cough and shortness of breath it has been worsening for approximately 1 week prior to presentation. Has also noticed he is feeling somewhat flushed with occasional chills. Also reports that he believes he has been having some slurred speech and speech difficulties for approximately 1 week prior to presentation. He does have a complicated past medical cardiac history including VT, PAF, hypertension, hyperlipidemia, sinus bradycardia, type 2 diabe sergio, DVT, BHUPINDER, ischemic cardiomyopathy, prostate cancer, mitral regurgitation, PFO, PAD. He did have streptococcal bacteremia which required prolonged inpatient admission earlier this year in August. He did have an ICD shock earlier this week which he was unaware of. Allergies Allergy/AdvReac Type Severity Reaction Status Date / Time cefazolin Allergy Intermediate Rash Verified 03/09/25 19:39 ceftriaxone Allergy Intermediate Rash Verified 03/09/25 19:39 lisinopril AdvReac Mild COUGHING Verified 03/09/25 19:39 Home Medications Medication Instructions Recorded Confirmed Type acetaminophen 500 mg tablet 1,000 mg (2 x 500 mg) PO Q8H PRN 09/15/24 03/09/25 Rx (Tylenol Extra Strength) fever or pain #100 tabs apixaban 2.5 mg tablet 2.5 mg PO BID #60 tabs 09/15/24 03/09/25 Rx clopidogrel 75 mg tablet (Plavix) 75 mg PO DAILY #30 tabs 09/15/24 03/09/25 Rx potassium chloride 20 mEq 20 meq PO BID #60 tabs 09/15/24 03/09/25 Rx tablet,extended release(part/cryst) tamsulosin 0.4 mg capsule 0.4 mg PO DAILY #30 caps 09/15/24 03/09/25 Rx [place] Extract Capsule 150 mg PO DAILY 03/09/25 03/09/25 History amiodarone 200 mg tablet 200 mg PO BID 03/09/25 03/09/25 History bicalutamide 50 mg tablet (Casodex) 50 mg PO DAILY 03/09/25 03/09/25 History capsaicin 0.1 % topical cream 1 applic topical BID 03/09/25 03/09/25 History cholecalciferol (vitamin D3) 25 50 mcg PO DAILY 03/09/25 03/09/25 History mcg (1,000 unit) capsule (Vitamin D3) ferrous sulfate 325 mg (65 mg 325 mg PO DAILY 03/09/25 03/09/25 History iron) tablet (iron) fish, borage, flaxseed oils-omega 1 cap PO QAM 03/09/25 03/09/25 History 3,6,9 comb no.1 1,200 mg capsule ([place] 3-6-9) furosemide 40 mg tablet (Lasix) 40 mg PO BID 03/09/25 03/09/25 History levothyroxine 112 mcg tablet 112 mcg PO DAILYBB 03/09/25 03/09/25 History multivitamin 1 tab PO DAILY 03/09/25 03/09/25 History nitroglycerin 0.4 mg sublingual 0.4 mg sublingual DIRECTED PRN 03/09/25 03/09/25 History tablet (Nitrostat) Chest Pain nystatin 100,000 unit/gram topical 1 applic topical BID PRN NEEDED 03/09/25 03/09/25 History powder (Nystop) ondansetron 8 mg disintegrating 8 mg translingual Q8H PRN 03/09/25 03/09/25 History tablet NAUSEA/VOMITING Patient History Medical History (Updated 03/10/25 @ 11:33 by BLAKE Hernandez) Streptococcemia Acute kidney injury superimposed on stage 3b chronic kidney disease History of aspiration pneumonia admitted to [facility] 04/2024 Ischemic cardiomyopathy "prior EF 35-40% in August 2008; improved EF 50-54% on 11/24/16 echo" Paroxysmal atrial fibrillation hx--"postoperative" History of cardioembolic stroke ~2016, 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 Mitral regurgitation follows w/ Dr Hyde HTN (hypertension) Dyslipidemia Diabetes mellitus no meds currently BHUPINDER (obstructive sleep apnea) no device PFO (patent foramen ovale) Atrial septal defect Gout Diabetic neuropathy Chronic anticoagulation Hx of renal calculi Hx of ventricular tachycardia Transient vision disturbance of both eyes Peripheral artery disease Rectal bleeding Bowel obstruction (04/2024) recent admission to [facility] DJD of left shoulder Surgical History (Updated 10/02/24 @ 00:06 by Background Chris) 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" History of total right knee replacement (2004) History of lithotripsy Hx of inguinal hernia repair (1954) Hx of colonoscopy History of right shoulder replacement (2009) History of left shoulder replacement AICD present, double chamber [employer], implanted 2018 Family History Brother V-tach required AICD Social History Smoking Status: Never smoker Second Hand Exposure: No; Do You Dip or Chew Tobacco: No; Hx Alcohol Use: No Hx Substance Use: No Preferred Language: Icelandic Communication Ability: Effective Visual Impairment: No Limitations Hearing Ability: Normal Agriculture Inspector Required: No Beliefs That Will Affect Care: None marital status: Single Current Living Situation: Alone Current Living Situation Comment: home alone, daughter lives 12 miles away current occupational status: retired Other Information That Helps Us Care for You: No Feels Safe at Home: Yes Safety Concerns: Feels Safe At This Time Diet: regular during the past year weight has: decreased > 10 lbs Assistive Devices: Walker Review of Systems Constitutional: + chills, + sweats, + fatigue and + weak ness Eyes: no problem reported Respiratory: + cough and + dyspnea Cardiovascular: + chest pain; no palpitations, no lighth eadedness, no syncope and no edema Musculoskeletal: + muscle weakness Neurologic: + abnormal speech Physical Exam Constitutional: + frail appearing and comfortable; no ac [place] distress Eyes: PERRL, conjunctivae normal, anicteric sclerae Neck: trachea midline, no thyromegaly Respiratory: normal respiratory effort; no respiratory distress Auscultation: + diminished lung sounds Cardiovascular: Rate/Rhythm: regular rate and regular rhythm Heart Sounds: + murmur Vessels: no JVD Psychiatric: A+Ox3, euthymic affect Results & Data Vital Signs (Past 12 Hours) Vital Signs Temp Pulse Pulse Resp BP BP Pulse Ox 03/10/25 09:00 03/10/25 08:20 36.9 C 71 18 104/70 95 03/10/25 07:25 73 03/10/25 04:23 36.4 C L 68 16 115/71 96 03/09/25 23:47 36.8 C 60 28 H 116/69 98 03/09/25 23:47 03/09/25 23:25 69 03/09/25 23:25 03/09/25 23:25 36.8 C 60 26 H 116/69 98 03/09/25 23:25 70 18 119/74 98 Pulse Ox O2 Del Method O2 Del Method 03/10/25 09:00 Room Air 03/10/25 08:20 Room Air 03/10/25 07:25 03/10/25 04:23 Room Air 03/09/25 23:47 Room Air 03/09/25 23:47 98 Room Air 03/09/25 23:25 03/09/25 23:25 Room Air 03/09/25 23:25 Room Air 03/09/25 23:25 Room Air Laboratory Results Cardiac Enzymes 03/09/25 03/09/25 03/10/25 Range/Units 17:48 19:31 05:25 AST 17 (13-39) U/L Troponin I High Sens 27.3 H 25.2 H 28.0 H (0-20) pg/ml Coagulation 03/09/25 Range/Units 17:48 PT 11.6 (9.0-12.0) Seconds APTT 33 H (21-31) Seconds CBC 03/09/25 03/10/25 Range/Units 17:48 05:25 WBC 4.66 L 5.23 (4.8-10.8) K/ul RBC 3.17 L 2.70 L (4.70-6.10) M/uL Hgb 9.2 L 8.1 L (14.0-18.0) g/dl Hct 29.3 L 24.7 L (42.0-52.0) % Plt Count 118 L 103 L (130-400) K/uL Neut # (Auto) 3.37 3.95 (1.40-6.50) K/uL Lymph # (Auto) 0.82 L 0.72 L (1.20-3.40) K/uL [place] # (Auto) 0.29 0.38 (0.11-0.59) K/uL Eos # (Auto) 0.12 0.13 (0.00-0.50) K/uL Baso # (Auto) 0.05 0.04 (0.00-0.20) K/uL Comprehensive Metabolic Panel 03/09/25 03/10/25 Range/Units 17:48 05:25 Sodium 138 140 (136-145) mmol/L Potassium 4.0 3.9 (3.5-5.1) mmol/L Chloride 103 106 (98-107) mmol/L Carbon Dioxide 26 24 (21-32) mmol/L BUN 45 H 45 H (6-23) mg/dl Creatinine 2.52 H 2.39 H (0.6-1.4) mg/dl Glucose 146 H 134 H (70-99(Fasting)) mg/dl Calcium 9.4 9.0 (8.6-10.3) mg/dl AST 17 (13-39) U/L ALT 17 (7-52) U/L Alkaline Phosphatase 95 (34-104) U/L Total Protein 7.3 (6.0-8.3) gm/dl Albumin 4.1 (3.4-5.0) gm/dl Intake and Output 03/09/25 03/10/25 03/10/25 22:59 06:59 14:59 Other: Weight 86.1 kg 85.4 kg Weight Measurement Method Chair Scale Built in [facility] Diagnostic Findings Laboratory Results WBC 5.23 K/ul (4.8-10.8) 03/10/25 05:25 RBC 2.70 M/uL (4.70-6.10) L 03/10/25 05:25 Hgb 8.1 g/dl (14.0-18.0) L 03/10/25 05:25 Hct 24.7 % (42.0-52.0) L 03/10/25 05:25 MCV 91.5 fL (80.0-100.0) 03/10/25 05:25 MCH 30.0 pg (25.0-34.0) 03/10/25 05:25 MCHC 32.8 g/dL (32.0-36.0) 03/10/25 05:25 RDW Std Deviation 63.6 fL (36.4-46.3) H 03/10/25 05:25 RDW Coeff of Perez 19.2 % (11.5-14.5) H 03/10/25 05:25 Plt Count 103 K/uL (130-400) L 03/10/25 05:25 MPV 9.8 fL (9.4-12.4) 03/10/25 05:25 Immature Gran % (Auto) 0.2 % 03/10/25 05:25 Neut % (Auto) 75.4 % 03/10/25 05:25 Lymph % (Auto) 13.8 % 03/10/25 05:25 [place] % (Auto) 7.3 % 03/10/25 05:25 Eos % (Auto) 2.5 % 03/10/25 05:25 Baso % (Auto) 0.8 % 03/10/25 05:25 Neut # (Auto) 3.95 K/uL (1.40-6.50) 03/10/25 05:25 Lymph # (Auto) 0.72 K/uL (1.20-3.40) L 03/10/25 05:25 [place] # (Auto) 0.38 K/uL (0.11-0.59) 03/10/25 05:25 Eos # (Auto) 0.13 K/uL (0.00-0.50) 03/10/25 05:25 Baso # (Auto) 0.04 K/uL (0.00-0.20) 03/10/25 05:25 Immature Gran # (Auto) 0.01 K/uL (0.01-0.20) 03/10/25 05:25 PT 11.6 Seconds (9.0-12.0) 03/09/25 17:48 INR 1.1 (0.9-1.1) 03/09/25 17:48 APTT 33 Seconds (21-31) H 03/09/25 17:48 PTT Ratio 1.2 03/09/25 17:48 Sodium 140 mmol/L (136-145) 03/10/25 05:25 Potassium 3.9 mmol/L (3.5-5.1) 03/10/25 05:25 Chloride 106 mmol/L (98-107) 03/10/25 05:25 Carbon Dioxide 24 mmol/L (21-32) 03/10/25 05:25 Anion Gap 10 (3-11) 03/10/25 05:25 BUN 45 mg/dl (6-23) H 03/10/25 05:25 Creatinine 2.39 mg/dl (0.6-1.4) H 03/10/25 05:25 Est Cr Clr Drug Dosing 25.4 ml/min 03/10/25 05:25 eGFR 26.41 03/10/25 05:25 BUN/Creatinine Ratio 18.8 (10-20) 03/10/25 05:25 Glucose 134 mg/dl (70-99(Fasting)) H 03/10/25 05:25 POC Glucose 163 mg/dl (70-99) H 03/10/25 00:08 Estimat Average Glucose 140 mg/dl 03/10/25 05:25 Hemoglobin A1c 6.5 % (4.5-5.6) H 03/10/25 05:25 Calcium 9.0 mg/dl (8.6-10.3) 03/10/25 05:25 Magnesium 2.1 mg/dl (1.7-2.4) 03/10/25 05:25 Total Bilirubin 1.7 mg/dl (0.2-1.0) H 03/09/25 17:48 AST 17 U/L (13-39) 03/09/25 17:48 ALT 17 U/L (7-52) 03/09/25 17:48 Alkaline Phosphatase 95 U/L (34-104) 03/09/25 17:48 Troponin I High Sens 28.0 pg/ml (0-20) H 03/10/25 05:25 Total Protein 7.3 gm/dl (6.0-8.3) 03/09/25 17:48 Albumin 4.1 gm/dl (3.4-5.0) 03/09/25 17:48 Globulin 3.2 gm/dl (2.5-4.0) 03/09/25 17:48 Albumin/Globulin Ratio 1.3 (0.9-2) 03/09/25 17:48 Impressions Chest X-Ray 03/09/25 17:37 EXAM: Portable AP chest radiograph TECHNIQUE: AP portable radiograph of the chest was obtained. INDICATION: Chest pain Comparison: Chest radiograph September 11, 2024 FINDINGS: LINES and TUBES: Left-sided cardiac ICD with leads projecting over the right atrium and the right ventricle of the heart. CARDIOVASCULAR: Cardiac silhouette is stably and significantly enlarged in size with redemonstrated post CABG changes. LUNGS/PLEURA: Interstitial pulmonary edema is similar to previous. No focal consolidation identified. Small pleural fluids are likely and appear unchanged. No discernible pneumothorax. OSSEOUS/OTHER: No displaced acute osseous process identified. Bilateral reverse shoulder arthroplasties. IMPRESSION: Similar congestive changes of the cardiovascular system. Electronically signed by Tam Yeung 03-09-2025 7:11 PM PG Care Time/CCT Total # of Minutes Spent Total Time Spent with Patient: Total time spent is greater than 50% in coordination of care (as documented) at patient's floor/unit and/or counseling patient: Coding Level of Care Code 72284 INT INP/OBS CARE 2/55MIN Medical Decision Making Moderate Complexity Diagnoses Defibrillator discharge Z45.02 Stroke-like symptoms R29.90 History of bacteremia Z87.898 ICD (implantable cardioverter-defibrillator) in place Z95.810 Ventricular tachycardia I47.2
--- NOTE | 2025-03-10 11:54 | CT Scan Report ---
Clinical History: Slurred speech Technique: Axial computed tomography images were obtained of the brain without intravenous contrast. Findings: There is diffuse cerebral atrophy, within expected limits for the patient's age. Areas of decreased attenuation are seen within the periventricular white matter, likely representing chronic small vessel ischemic disease. There is no definite sign of acute or old infarction. No intracranial hemorrhage is evident. No definite mass lesion is seen on this noncontrast examination. There is no midline shift or other form of herniation. No hydrocephalus is seen. No fracture is identified. The orbits and the visualized paranasal sinuses appear unremarkable. The mastoid air cells appear clear. Impression: 1. Cerebral atrophy and chronic small vessel ischemic disease 2. Otherwise unremarkable noncontrast CT of the brain Electronically signed by Alcides Wills 03-10-2025 11:53 AM
--- NOTE | 2025-03-10 12:14 | CT Scan Report ---
Clinical history: Shortness of breath Technique: Axial computed tomography images were obtained of the chest without intravenous contrast Comparison is made to the prior CT dated 09/04/2024 Findings: There is pulmonary edema. There is a new 6 mm left upper lobe nodule as well as a 2-3 mm nodule. There is a calcified granuloma in the right lower lobe. There are increased small bilateral pleural effusions. There is no pneumothorax. There is no sign of pulmonary fibrosis or other diffuse interstitial process. No endobronchial lesion is seen There are multiple small and mildly enlarged noncalcified mediastinal lymph nodes, measuring up to 1.2 cm in short axis. There are calcified right hilar and subcarinal lymph nodes, likely due to old granulomatous disease. The thoracic aorta is of normal caliber. There is no pericardial effusion. There is a left chest wall pacemaker device. Postsurgical changes are seen of coronary artery bypass grafting surgery A gallstone is present. There is no definite sign of acute cholecystitis. There are bilateral shoulder replacements Impression: 1. New pulmonary edema 2. Increased small bilateral pleural effusions 3. New left upper lobe nodules, likely benign inflammatory nodules but indeterminate in nature. A follow-up chest CT could be obtained in 3-6 months 4. Mild mediastinal adenopathy 5. Cholelithiasis ACT 112: Positive. There are findings on this exam that require communication between the performing entity and the patient following Patient Test Result Information Act ([place] ACT 112) guidelines. Electronically signed by Alicdes Wills 03-10-2025 12:13 PM
[2025-03-10] MEDS: AMOXICILLIN/CLAVULANATE 500 MG TAB PO SCH (16:50)
[2025-03-10] MEDS: FUROSEMIDE 40 MG/4 ML VIAL IV SCH (16:50)
[2025-03-10] MEDS ORDERED: FUROSEMIDE 40 MG/4 ML VIAL IV SCH (17:00)
--- NOTE | 2025-03-10 17:23 | Hospitalist Progress Note ---
Date of Service March 10, 2025 Assessment & Plan (1) Arrhythmia: Plan: 84-year-old male with past medical history significant for type 2 diabetes, dyslipidemia, gout, hypothyroidism, obstructive sleep apnea intolerant to CPAP, paroxysmal atrial fibrillation, history of VT, CKD stage III, peripheral artery disease, left vertebral artery stenosis, chronic systolic CHF, status post AICD, protein calorie malnutrition, cirrhosis of liver with ascites, prostate cancer, scrotal swelling, history of CVA, anemia, history of left arm DVT in 2018, atrial septal aneurysm, CAD s/p CABG in 2016 who lives alone at home ambulates with a walker comes because of weakness and ICD shock. Patient is having ongoing weakness for a week. Couple of nights ago he had ICD shock which patient is not aware of. The next day he got a call from [employer] that had a ICD shock. As per the ER he seems to had heart rate in 200s with atrioventricular reentry tachycardia arrhythmia at the time of the the shock. As per the ICD interrogations patient seems to having A.flutter daily for several hours. Currently patient resting comfortably. Has some soreness in the chest.. Denies any shortness of breath currently. Seems to having shortness of breath on exertion. Denies any headache. Vision is okay. No runny nose or sore throat. No cough. Appetite is very poor. No difficulty swallowing. No nausea. No abdominal pain. Normal bowel and bladder movements.Patient states his lower extremity edema is better than before. Hemodynamics are okay. Patient state his younger brother recently. Daughter lives 10 miles away from him but she is out of town currently. AVRT Paroxysmal Atrial FLutter/Fibrillation History of sustained ventricular tachycardia status post dual-chamber ICD on 02/14/2019, ICD Shock Acute Decompensated HFrEF (EF 25%) R/o CAP -Couple of nights ago his ICD delivered shock which the patient is not aware. Seems his heart rates were in 200s with atrioventricular reentrant tachycardia -Also he is in a flutter frequently -Currently hemodynamics are okay -CT chest and BNP strongly supportive of decompensated HF Plan: -ceftriaxone, doxy x5 days for CAP coverage -cardiology consulted, appreciate recs -start IV 80 lasix tid per cardiology -echo ordered -PT/OT ordered -continue amiodarone and eliquis CKD stage III Baseline creatinine 2-2.3 History of prostate cancer S/p radiation treatment completed in August 2024 -Could not tolerate Firmagon -On Casodex -Follows with heme-onc Anemia -Hemoglobin 9.2 around baseline -Follows with heme-onc CAD s/p CABG -On Eliquis and Plavix Peripheral artery disease -Unsuccessful antegrade and retrograde attempts made at right tibial interventi on -On Plavix and Eliquis History of atrial septal aneurysm Patent foramen ovale Hypothyroidism -On Synthyroid Diabetes -Not on meds -SSI Sleep apnea -Seems could not tolerate CPAP I spent a total of 55 minutes in direct patient care, including [id number] time with the patient and/or family, reviewing medical records, ordering and reviewing diagnostic tests, and coordinating care with other healthcare providers. This time includes: history taking, physical examination, medical decision making, counseling, ECG interpretation, imaging interpretation, lab interpretation, orders, and education, excluding time spent in the performance of separately billed services. Admission and Anticipated Discharge Date Admission Date: March 09, 2025 Subjective Patient seen and examined at bedside. Patient doing ok today. States he had some ICD shocks and is SOB at this time. Denies fever or cough. Review of Systems Review of Systems: CONSTITUTIONAL: Patient denies fevers, chills, sweats and weight changes. EYES: Patient denies any visual symptoms. EARS, NOSE, AND THROAT: No difficulties with hearing. No symptoms of rhinitis or sore throat. CARDIOVASCULAR: Patient denies chest pains, palpitations, orthopnea and paroxysmal nocturnal dyspnea. RESPIRATORY: SOB GI: No nausea, vomiting, diarrhea, constipation, abdominal pain, hematochezia or melena. : No urinary hesitancy or dribbling. No nocturia or urinary frequency. No abnormal urethral discharge. MUSCULOSKELETAL: No myalgias or arthralgias. NEUROLOGIC: No chronic headaches, no seizures. Patient denies numbness, tingling or weakness. PSYCHIATRIC: Patient denies problems with mood disturbance. No problems with anxiety. ENDOCRINE: No excessive urination or excessive thirst. DERMATOLOGIC: Patient denies any rashes or skin changes. Physical Exam Physical Exam: Gen: A&O 3 NAD HEENT: NCAT, EOMI, not icteric. External ears normal. No rhinorrhea. Moist mucous membranes. Neck: Supple, full range of motion, no observable masses, No meningeal sign. Lungs: trace ronchi throughout lung hogan bilaterally CV: RRR, no edema. Abdomen: Soft, nondistended, No rebound tenderness. MSK: No joint swelling, no redness. Skin: No rashes, petechiae, lesions. Normal color per patient. Neuro: Normal Gait, Grossly intact. Psych: Appropriate for situation. Results & Data Results & Data Vital Signs (Past 12 Hours) Vital Signs Temp Pulse Pulse Resp BP Pulse Ox O2 Del Method 03/10/25 17:00 36.5 C 72 20 108/69 92 Room Air 03/10/25 14:00 71 03/10/25 09:00 Room Air 03/10/25 08:20 36.9 C 71 18 104/70 95 Room Air 03/10/25 07:25 73 Laboratory Results -personally reviewed, no leukocytosis, Hgb stable, creatinine at baseline Medications Administered Amiodarone HCl (Amiodarone 200 Mg Tab) 200 mg PO BID [facility] Stop: 04/08/25 23:46 Last Admin: 03/10/25 09:53 Dose: 200 mg Documented By: MARY JO Admin: 03/10/25 00:29 Dose: 200 mg Documented By: BRIANNE Amoxicillin/Clavulanate Potassium (Amoxicillin/Clavulanate 500 Mg Tab) 1 tab PO BIDM [facility]; Protocol Stop: 03/15/25 16:59 Last Admin: 03/10/25 16:50 Dose: 1 tab Documented By: MARY JO Apixaban (Apixaban 2.5 Mg Tab) 2.5 mg PO BID [facility] Stop: 04/08/25 23:46 Last Admin: 03/10/25 09:54 Dose: 2.5 mg Documented By: MARY JO Admin: 03/10/25 00:30 Dose: 2.5 mg Documented By: BRIANNE Bicalutamide (Bicalutamide 50 Mg Tab) 50 mg PO DAILY [facility] Stop: 04/09/25 08:59 Last Admin: 03/10/25 09:53 Dose: 50 mg Documented By: MARY JO Co-signed By: ABDULAZIZ Capsaicin (Capsaicin Cr 0.075% 60 Gm Tube) 1 appln EXT BID [facility] Stop: 04/09/25 08:59 Last Admin: 03/10/25 09:54 Dose: 1 appln Documented By: MARY JO Clopidogrel Bisulfate (Clopidogrel Bisulfate 75 Mg Tab) 75 mg PO DAILY [facility] Stop: 04/09/25 08:59 Last Admin: 03/10/25 09:54 Dose: 75 mg Documented By: MARY JO Ferrous Sulfate (Ferrous Sulfate 325 Mg Tab) 325 mg PO DAILY [facility] Stop: 04/09/25 08:59 Last Admin: 03/10/25 09:54 Dose: 325 mg Documented By: MARY JO Furosemide (Furosemide 40 Mg/4 Ml Vial) 80 mg IV Q8 [facility] Stop: 04/09/25 16:04 Last Admin: 03/10/25 16:50 Dose: 80 mg Documented By: MARY JO Insulin Aspart (Insulin Aspart Per Unit Charge) 0 units SC Q6 [facility] Stop: 04/09/25 00:29 Last Admin: 03/10/25 12:38 Dose: 3 units Documented By: MARY JO Co-signed By: ABDULAZIZ Admin: 03/10/25 06:12 Dose: Not Given Documented By: Admin: 03/10/25 00:28 Dose: 1 units Documented By: BRIANNE Co-signed By: OLY Levothyroxine Sodium (Levothyroxine Sodium 112 Mcg Tablet) 112 mcg PO DAILYBB [facility] Stop: 04/09/25 06:29 Last Admin: 03/10/25 06:35 Dose: 112 mcg Documented By: BRIANNE Multivitamins (Multivitamin Tab) 1 tab PO DAILY [facility] Stop: 04/09/25 08:59 Last Admin: 03/10/25 09:54 Dose: 1 tab Documented By: MARY JO Potassium Chloride (Potassium Chloride Crtab 20 Meq Tabcr) 20 meq PO BID [facility] Stop: 04/09/25 08:59 Last Admin: 03/10/25 09:58 Dose: 20 meq Documented By: MARY JO Tamsulosin HCl (Tamsulosin Hcl 0.4 Mg Cap) 0.4 mg PO DAILY [facility] Stop: 04/09/25 08:59 Last Admin: 03/10/25 09:54 Dose: 0.4 mg Documented By: MARY JO Vitamin D (Cholecalciferol 25 Mcg (1000 Units) Tab) 50 mcg PO DAILY [facility] Stop: 04/09/25 08:59 Last Admin: 03/10/25 09:54 Dose: 50 mcg Documented By: MARY JO
[2025-03-10] MEDS: DOXYCYCLINE HYCLATE 100 MG CAP PO SCH (21:28)
[2025-03-11 07:34] LABS: Hematocrit (blood only) 26.6 % (42.0-52.0); Hemoglobin 8.5 g/dl (14.0-18.0); Mean Corpuscular Hemoglobin 29.3 pg (25.0-34.0); Mean Corpuscular Volume 91.7 fL (80.0-100.0); Platelet Count 110 K/uL (130-400); RDW Standard Deviation 62.7 fL (36.4-46.3); Red Blood Count 2.90 M/uL (4.70-6.10); White Blood Count 5.15 K/ul (4.8-10.8)
[2025-03-11 07:55] LABS: Anion Gap 12.0 (3-11); Blood Urea Nitrogen 46.0 mg/dl (6-23); Calcium 8.9 mg/dl (8.6-10.3); Carbon Dioxide 25.0 mmol/L (21-32); Chloride 103.0 mmol/L (98-107); Creatinine Clr Calc Pharmacy 26.1 ml/min; Glucose 146.0 mg/dl (70-99(Fasting)); Magnesium 2.0 mg/dl (1.7-2.4); Potassium 3.7 mmol/L (3.5-5.1); Sodium 140.0 mmol/L (136-145)
--- NOTE | 2025-03-11 11:59 | Cardiology Progress Note ---
<Statement entered by Bri Bray, - 03/11/25 13:44> Pt seen in cardiology follow up due to acute on chronic heart failure with reduced EF-NYHA Class III-IV with ICM and recurrent VT with a recent ICD shock for VT a few days ago He is responding to IV diuretics with -2L ovenright and 4 pounds kidney function is stable so would continue IV lasix for today continue other home cardiac medications except his PO lasix I am not sure what to make of the atypical chest pain near his ICD site-no rash so I do not think any shingles it sounds atypical and it is reproducible he denies any falls but could be muscular skeletal at this juncture not cardiac I discussed the case and my recommendations with the hospitalist over the phone and he agreed with my plan Date of Service March 11, 2025 Assessment & Plan (1) Acute on chronic systolic congestive heart failure: (2) Defibrillator discharge: (3) Stroke-like symptoms: (4) History of bacteremia: (5) ICD (implantable cardioverter-defibrillator) in place: (6) Ventricular tachycardia: Plan - Heart rate and blood pressure currently well-controlled -His chest/left axilla discomfort seems more musculoskeletal in nature as it is reproducible on physical exam - ICD shock earlier this week previously reviewed at the time it occurred indicated appropriate management of ventricular dysrhythmia with ICD treatment - Continue amiodarone, apixaban, clopidogrel - May benefit from evaluation of PT OT given the reported weakness - Good response to IV lasix, fluid balance - 2 L and weight has trended down 4 lbs - renal function stable, continue IV lasix through today - Can consider transitioning to oral diuretic therapy possibly tomorrow but would recommend switching to torsemide at discharge Case discussed with Dr. Bray. Please see attestation for additional recommendations. BLAKE Frank Department of Cardiology, [facility] This chart was completed in part utilizing Speech Voice Recognition Software. Grammatical errors, random word insertions, pronoun errors, and incomplete sentences are an occasional consequence of this system due to software limitations, ambient noise, and hardware issues. Any formal questions or concerns about the content, text, or information contained within the body of this dictation should be directly addressed to the provider for clarification. Admission and Anticipated Discharge Date Admission Date: March 09, 2025 Subjective 84-year-old male seen in cardiology follow-up today in regard to weakness with recent ICD shock. CT scan completed yesterday seemed more consistent with Acute on Chronic CHF exacerbation. Started on IV diuretics yesterday with good response. He is feeling better today but still not back to baseline. Having reproducible left axilla discomfort. Reported to be feeling more like a throbbing exacerbated by touching the area. Review of Systems Constitutional: + chills, + sweats, + fatigue and + weak ness Eyes: no problem reported Respiratory: + cough and + dyspnea Cardiovascular: + chest pain; no palpitations, no lighth eadedness, no syncope and no edema Musculoskeletal: + muscle weakness Neurologic: + abnormal speech Physical Exam Constitutional: + frail appearing and comfortable; no ac ekta distress Eyes: PERRL, conjunctivae normal, anicteric sclerae Neck: trachea midline, no thyromegaly Respiratory: normal respiratory effort; no respiratory distress Auscultation: + diminished lung sounds Cardiovascular: Rate/Rhythm: regular rate and regular rhythm Heart Sounds: + murmur Vessels: no JVD Psychiatric: A+Ox3, euthymic affect Results & Data Vital Signs (Past 12 Hours) Vital Signs Temp Pulse Resp BP Pulse Ox O2 Del Method 03/11/25 11:53 36.7 C 73 19 103/72 92 Room Air 03/11/25 11:40 Room Air 03/11/25 07:55 36.6 C 69 19 110/71 95 Room Air 03/11/25 03:05 36.5 C 73 18 112/69 94 Room Air PG Care Time/CCT Total # of Minutes Spent Total Time Spent with Patient: Total time spent is greater than 50% in coordination of care (as documented) at patient's floor/unit and/or counseling patient: Coding Level of Care Code 91798 SUB INP/OBS CARE 2/35MIN Medical Decision Making Moderate Complexity Diagnoses Acute on chronic systolic congestive heart failure I50.23 Defibrillator discharge Z45.02 Stroke-like symptoms R29.90 History of bacteremia Z87.898 ICD (implantable cardioverter-defibrillator) in place Z95.810 Ventricular tachycardia I47.2
--- NOTE | 2025-03-11 12:17 | XCELERA ---
[id number]
[2025-03-11] MEDS: INSULIN ASPART PER UNIT CHARGE SC SCH (12:46)
[2025-03-11] MEDS: ACETAMINOPHEN 325 MG TAB PO PRN (12:56)
--- NOTE | 2025-03-11 14:47 | Hospitalist Progress Note ---
Date of Service March 11, 2025 Assessment & Plan (1) Arrhythmia: Plan: 84-year-old male with past medical history significant for type 2 diabetes, dyslipidemia, gout, hypothyroidism, obstructive sleep apnea intolerant to CPAP, paroxysmal atrial fibrillation, history of VT, CKD stage III, peripheral artery disease, left vertebral artery stenosis, chronic systolic CHF, status post AICD, protein calorie malnutrition, cirrhosis of liver with ascites, prostate cancer, scrotal swelling, history of CVA, anemia, history of left arm DVT in 2018, atrial septal aneurysm, CAD s/p CABG in 2016 who lives alone at home ambulates with a walker comes because of weakness and ICD shock. Patient is having ongoing weakness for a week. Couple of nights ago he had ICD shock which patient is not aware of. The next day he got a call from [employer] that had a ICD shock. As per the ER he seems to had heart rate in 200s with atrioventricular reentry tachycardia arrhythmia at the time of the the shock. As per the ICD interrogations patient seems to having A.flutter daily for several hours. Currently patient resting comfortably. Has some soreness in the chest.. Denies any shortness of breath currently. Seems to having shortness of breath on exertion. Denies any headache. Vision is okay. No runny nose or sore throat. No cough. Appetite is very poor. No difficulty swallowing. No nausea. No abdominal pain. Normal bowel and bladder movements.Patient states his lower extremity edema is better than before. Hemodynamics are okay. Patient state his younger brother recently. Daughter lives 10 miles away from him but she is out of town currently. AVRT Paroxysmal Atrial FLutter/Fibrillation History of sustained ventricular tachycardia status post dual-chamber ICD on 02/14/2019, ICD Shock Acute Decompensated HFrEF (EF 25%) R/o CAP -Couple of nights ago his ICD delivered shock which the patient is not aware. Seems his heart rates were in 200s with atrioventricular reentrant tachycardia -he is in a flutter frequently -CT chest and BNP strongly supportive of decompensated HF Plan: -ceftriaxone, doxy x5 days for CAP coverage -cardiology consulted, appreciate recs -continue IV 80 lasix tid per cardiology -PT/OT ordered -continue amiodarone and eliquis CKD stage III -Baseline creatinine 2-2.3 History of prostate cancer S/p radiation treatment completed in August 2024 -Could not tolerate Firmagon -On Casodex -Follows with heme-onc Anemia -Follows with heme-onc CAD s/p CABG -On Eliquis and Plavix Peripheral artery disease -Unsuccessful antegrade and retrograde attempts made at right tibial intervention -On Plavix and Eliquis History of atrial septal aneurysm Patent foramen ovale Hypothyroidism -On Synthyroid Diabetes -Not on meds -SSI Sleep apnea -Seems could not tolerate CPAP I spent a total of 40 minutes in direct patient care, including [id number] time with the patient and/or family, reviewing medical records, ordering and reviewing diagnostic tests, and coordinating care with other healthcare providers. This time includes: history taking, physical examination, medical decision making, counseling, ECG interpretation, imaging interpretation, lab interpretation, orders, and education, excluding time spent in the performance of separately billed services. Admission and Anticipated Discharge Date Admission Date: March 09, 2025 Subjective Patient seen and examined at bedside. Patient doing better today, feels better overall. Review of Systems Review of Systems: CONSTITUTIONAL: Patient denies fevers, chills, sweats and weight changes. EYES: Patient denies any visual symptoms. EARS, NOSE, AND THROAT: No difficulties with hearing. No symptoms of rhinitis or sore throat. CARDIOVASCULAR: Patient denies chest pains, palpitations, orthopnea and paroxysmal nocturnal dyspnea. RESPIRATORY: SOB GI: No nausea, vomiting, diarrhea, constipation, abdominal pain, hematochezia or melena. : No urinary hesitancy or dribbling. No nocturia or urinary frequency. No abnormal urethral discharge. MUSCULOSKELETAL: No myalgias or arthralgias. NEUROLOGIC: No chronic headaches, no seizures. Patient denies numbness, tingling or weakness. PSYCHIATRIC: Patient denies problems with mood disturbance. No problems with anxiety. ENDOCRINE: No excessive urination or excessive thirst. DERMATOLOGIC: Patient denies any rashes or skin changes. Physical Exam Physical Exam: Gen: A&O 3 NAD HEENT: NCAT, EOMI, not icteric. External ears normal. No rhinorrhea. Moist mucous membranes. Neck: Supple, full range of motion, no observable masses, No meningeal sign. Lungs: trace ronchi throughout lung hogan bilaterally, improved from prior CV: RRR, no edema. Abdomen: Soft, nondistended, No rebound tenderness. MSK: No joint swelling, no redness. Skin: No rashes, petechiae, lesions. Normal color per patient. Neuro: Normal Gait, Grossly intact. Psych: Appropriate for situation. Results & Data Results & Data Vital Signs (Past 12 Hours) Vital Signs Temp Pulse Pulse Resp BP Pulse Ox O2 Del Method 03/11/25 11:53 36.7 C 73 19 103/72 92 Room Air 03/11/25 11:40 Room Air 03/11/25 07:55 36.6 C 69 19 110/71 95 Room Air 03/11/25 07:00 75 03/11/25 03:05 36.5 C 73 18 112/69 94 Room Air Laboratory Results -personally reviewed, no leukocytosis, creatinine at baseline Medications Administered Acetaminophen (Acetaminophen 325 Mg Tab) 650 mg PO Q4H PRN PRN Reason: Pain or Fever Stop: 04/08/25 23:46 Last Admin: 03/11/25 12:56 Dose: 650 mg Documented By: AVNIA Amiodarone HCl (Amiodarone 200 Mg Tab) 200 mg PO BID [facility] Stop: 04/08/25 23:46 Last Admin: 03/11/25 09:40 Dose: 200 mg Documented By: Admin: 03/10/25 21:28 Dose: 200 mg Documented By: Admin: 03/10/25 09:53 Dose: 200 mg Documented By: MARY JO Admin: 03/10/25 00:29 Dose: 200 mg Documented By: BRIANNE Amoxicillin/Clavulanate Potassium (Amoxicillin/Clavulanate 500 Mg Tab) 1 tab PO BIDM [facility]; Protocol Stop: 03/15/25 16:59 Last Admin: 03/11/25 10:01 Dose: 1 tab Documented By: Admin: 03/10/25 16:50 Dose: 1 tab Documented By: MARY JO Apixaban (Apixaban 2.5 Mg Tab) 2.5 mg PO BID [facility] Stop: 04/08/25 23:46 Last Admin: 03/11/25 09:43 Dose: 2.5 mg Documented By: Admin: 03/10/25 21:28 Dose: 2.5 mg Documented By: Admin: 03/10/25 09:54 Dose: 2.5 mg Documented By: MARY JO Admin: 03/10/25 00:30 Dose: 2.5 mg Documented By: BRIANNE Bicalutamide (Bicalutamide 50 Mg Tab) 50 mg PO DAILY [facility] Stop: 04/09/25 08:59 Last Admin: 03/11/25 09:40 Dose: 50 mg Documented By: VANIA Co-signed By: ABDULAZIZ Admin: 03/10/25 09:53 Dose: 50 mg Documented By: MARY JO Co-signed By: ABDULAZIZ Capsaicin (Capsaicin Cr 0.075% 60 Gm Tube) 1 appln EXT BID [facility] Stop: 04/09/25 08:59 Last Admin: 03/11/25 09:44 Dose: 1 appln Documented By: Admin: 03/10/25 21:29 Dose: 1 appln Documented By: Admin: 03/10/25 18:44 Dose: Not Given Documented By: MARY JO Clopidogrel Bisulfate (Clopidogrel Bisulfate 75 Mg Tab) 75 mg PO DAILY [facility] Stop: 04/09/25 08:59 Last Admin: 03/11/25 10:52 Dose: 75 mg Documented By: Admin: 03/10/25 09:54 Dose: 75 mg Documented By: MARY JO Doxycycline Hyclate (Doxycycline Hyclate 100 Mg Cap) 100 mg PO BID@1000,2100 [facility] Stop: 03/15/25 20:59 Last Admin: 03/11/25 09:41 Dose: 100 mg Documented By: Admin: 03/10/25 21:28 Dose: 100 mg Documented By: BRIANNE Ferrous Sulfate (Ferrous Sulfate 325 Mg Tab) 325 mg PO DAILY [facility] Stop: 04/09/25 08:59 Last Admin: 03/11/25 09:41 Dose: 325 mg Documented By: Admin: 03/10/25 09:54 Dose: 325 mg Documented By: MARY JO Furosemide (Furosemide 40 Mg/4 Ml Vial) 80 mg IV Q8 [facility] Stop: 04/09/25 16:04 Last Admin: 03/11/25 13:51 Dose: 80 mg Documented By: Admin: 03/11/25 06:26 Dose: 80 mg Documented By: Admin: 03/10/25 21:29 Dose: 80 mg Documented By: Admin: 03/10/25 16:50 Dose: 80 mg Documented By: MARY JO Insulin Aspart (Insulin Aspart Per Unit Charge) 0 units SC ACHS [facility] Stop: 04/10/25 11:29 Last Admin: 03/11/25 12:46 Dose: 1 units Documented By: VANIA Co-signed By: ABDULAZIZ Levothyroxine Sodium (Levothyroxine Sodium 112 Mcg Tablet) 112 mcg PO DAILYBB [facility] Stop: 04/09/25 06:29 Last Admin: 03/11/25 06:26 Dose: 112 mcg Documented By: Admin: 03/10/25 06:35 Dose: 112 mcg Documented By: BRIANNE Multivitamins (Multivitamin Tab) 1 tab PO DAILY [facility] Stop: 04/09/25 08:59 Last Admin: 03/11/25 09:42 Dose: 1 tab Documented By: Admin: 03/10/25 09:54 Dose: 1 tab Documented By: MARY JO Potassium Chloride (Potassium Chloride Crtab 20 Meq Tabcr) 20 meq PO BID [facility] Stop: 04/09/25 08:59 Last Admin: 03/11/25 10:52 Dose: 20 meq Documented By: Admin: 03/10/25 21:28 Dose: 20 meq Documented By: Admin: 03/10/25 09:58 Dose: 20 meq Documented By: MARY JO Tamsulosin HCl (Tamsulosin Hcl 0.4 Mg Cap) 0.4 mg PO DAILY [facility] Stop: 04/09/25 08:59 Last Admin: 03/11/25 09:42 Dose: 0.4 mg Documented By: Admin: 03/10/25 09:54 Dose: 0.4 mg Documented By: MARY JO Vitamin D (Cholecalciferol 25 Mcg (1000 Units) Tab) 50 mcg PO DAILY [facility] Stop: 04/09/25 08:59 Last Admin: 03/11/25 09:41 Dose: 50 mcg Documented By: Admin: 03/10/25 09:54 Dose: 50 mcg Documented By: MARY JO
--- NOTE | 2025-03-11 16:13 | Electrocardiogram Report ---
Test Reason : Blood Pressure : */* mmHG Vent. Rate : 71 BPM Atrial Rate : 60 BPM P-R Int : * ms QRS Dur : 250 ms QT Int : 584 ms P-R-T Axes : * -66 102 degrees QTcB Int : 634 ms Ventricular-paced rhythm Underlying atrial fibrillation Abnormal ECG When compared with ECG of 09-Sep-2024 05:14, Pacing is now appropriate Confirmed by Sumit Cervantes ([id number]) on 03/11/2025 4:13:21 PM Referred By: REFERRED SELF Confirmed By: Sumit Cervantes
--- NOTE | 2025-03-11 17:02 | Electrocardiogram Report ---
Test Reason : Blood Pressure : */* mmHG Vent. Rate : 71 BPM Atrial Rate : 120 BPM P-R Int : * ms QRS Dur : 208 ms QT Int : 580 ms P-R-T Axes : * -69 97 degrees QTcB Int : 630 ms Ventricular-paced rhythm with pvc Abnormal ECG When compared with ECG of 10-Mar-2025 05:54, (unconfirmed) No significant change was found Confirmed by Sumit Cervantes ([id number]) on 03/11/2025 5:01:35 PM Referred By: REFERRED SELF Confirmed By: Sumit Cervantes
[2025-03-12 06:08] LABS: Hematocrit (blood only) 25.3 % (42.0-52.0); Hemoglobin 8.5 g/dl (14.0-18.0); Mean Corpuscular Hemoglobin 30.7 pg (25.0-34.0); Mean Corpuscular Volume 91.3 fL (80.0-100.0); Platelet Count 115 K/uL (130-400); RDW Standard Deviation 61.1 fL (36.4-46.3); Red Blood Count 2.77 M/uL (4.70-6.10); White Blood Count 4.57 K/ul (4.8-10.8)
[2025-03-12 06:26] LABS: Anion Gap 11.0 (3-11); Blood Urea Nitrogen 48.0 mg/dl (6-23); Calcium 8.8 mg/dl (8.6-10.3); Carbon Dioxide 27.0 mmol/L (21-32); Chloride 102.0 mmol/L (98-107); Creatinine Clr Calc Pharmacy 24.0 ml/min; Glucose 111.0 mg/dl (70-99(Fasting)); Magnesium 1.9 mg/dl (1.7-2.4); Potassium 3.3 mmol/L (3.5-5.1); Sodium 140.0 mmol/L (136-145)
--- NOTE | 2025-03-12 11:22 | Cardiology Progress Note ---
Date of Service March 12, 2025 Assessment & Plan (1) Acute on chronic systolic congestive heart failure: (2) Defibrillator discharge: (3) Stroke-like symptoms: (4) History of bacteremia: (5) ICD (implantable cardioverter-defibrillator) in place: (6) Ventricular tachycardia: Plan Complex 84-year-old male admitted on March 09, 2025 with complaints of shortness of breath, weakness, atypical chest discomfort (reproducible with palpation of the chest wall). Cardiology consultation requested due to acute on chronic heart failure and recurrent ventricular tachycardia with successful ICD shock on March 07, 2025. Patient unaware of ICD discharge. Personal review of patient's m ost recent device interrogation reveals recurrent atrial fibrillation since January as possible precipitant to decompensation presentation. Volume status has improved with IV furosemide. Patient approaching euvolemia. Recommendations: * Additional oral potassium supplementation now * Transition to oral Torsemide in AM of 03/13/2025 * Amiodarone increased to 200 mg BID this admission * AST, ALT, and Alk Faby within normal range this admission. Check TSH * Retrial low dose metoprolol succinate, 12.5 mg/day * Continue apixaban and clopidogrel * General measures advised for the musculoskeletal chest discomfort Admission and Anticipated Discharge Date Admission Date: March 09, 2025 Supervising Physician Co-Signing Physician Notes Patient was seen and personally examined. Care and management as outlined by advanced provider above. Patient responded to IV diuretics. No focal cardiac complaint other than mild tenderness at defibrillator site. Is manifesting good diuresis with relatively stable renal function. Plan transition to oral diuretics in a.m. Subjective Patient seen and examined. Chart, medications, telemetry reviewed. Feeling better overall. Ongoing cough. Breathing improved. Chest pain improved, reproducible with palpation/movement. Fluid balance -3,440 mL's overall Hemoglobin stable at 8.5 g/dL. Creatinine increased from 2.32 to 2.53 mg/dL this AM Review of Systems Review of Systems: Complete Review of Systems is as stated above, negative, or noncontributory. Physical Exam Physical Exam: General: A&Ox3. NAD. HENT: Normocephalic. Atraumatic. Eyes: PER. Conjunctiva pink, sclera clear. Neck: JVD. Heart: Regular, paced. Grade II/ systolic murmur. No rub. Lungs: Right greater than left basilar crackles. No wheeze. Abdomen: +BS. Soft. Nontender. No masses or organomegaly. Extremities: Minimal edema. Stasis changes. No cyanosis Limited neurological examination is without focal deficits. Pulses: Posterior tibial=0/4. Results & Data Vital Signs (Past 12 Hours) Vital Signs Temp Pulse Resp BP Pulse Ox O2 Del Method 03/12/25 11:08 36.6 C 72 24 107/69 95 Room Air 03/12/25 07:31 36.5 C 70 20 111/68 92 Room Air 03/12/25 03:40 36.3 C L 72 16 114/73 95 Room Air Laboratory Results CBC 03/12/25 Range/Units 05:13 WBC 4.57 L (4.8-10.8) K/ul RBC 2.77 L (4.70-6.10) M/uL Hgb 8.5 L (14.0-18.0) g/dl Hct 25.3 L (42.0-52.0) % Plt Count 115 L (130-400) K/uL Comprehensive Metabolic Panel 03/12/25 Range/Units 05:13 Sodium 140 (136-145) mmol/L Potassium 3.3 L (3.5-5.1) mmol/L Chloride 102 (98-107) mmol/L Carbon Dioxide 27 (21-32) mmol/L BUN 48 H (6-23) mg/dl Creatinine 2.53 H (0.6-1.4) mg/dl Glucose 111 H (70-99(Fasting)) mg/dl Calcium 8.8 (8.6-10.3) mg/dl Intake and Output 03/11/25 03/12/25 03/12/25 22:59 06:59 14:59 Intake Total 150 / 920 50 / 920 Output Total 1350 / 1830 Balance 150 / -910 -1300 / -910 Intake: Oral 150 / 920 50 / 920 Output: Urine 1350 / 1350 Other: # Unmeasured Voids 1 Weight 83.8 kg Diagnostic Findings Telemetry: Ventricular paced in the 70s. March 10, 2025 TTE ([facility], Dr. Bray): Left ventricular ejection fraction 25 to 30%. Moderate concentric LVH. Mildly dilated left ventricle. Grade 3 diastolic dysfunction, consistent with markedly increased left atrial pressure. Diffuse hypokinesis to akinesis. Severely dilated left atrium. Moderate to severely dilated right atrium. Calcified aortic valve. Moderate mitral regurgitation. PG Care Time/CCT Total # of Minutes Spent Total Time Spent with Patient: Total time spent is greater than 50% in coordination of care (as documented) at patient's floor/unit and/or counseling patient: Coding Level of Care Code 14119 SUB INP/OBS CARE 3/50MIN Diagnoses Acute on chronic systolic congestive heart failure I50.23 Defibrillator discharge Z45.02 Stroke-like symptoms R29.90 History of bacteremia Z87.898 ICD (implantable cardioverter-defibrillator) in place Z95.810 Ventricular tachycardia I47.2
[2025-03-12] MEDS: POTASSIUM CHLORIDE CRTAB 20 MEQ TABCR PO ONE (12:14)
[2025-03-12 12:35] LABS: Thyroid Stimulating Hormone 3.99 uIu/ml (0.300-4.500)
--- NOTE | 2025-03-12 15:10 | Hospitalist Progress Note ---
Date of Service March 12, 2025 Assessment & Plan (1) Arrhythmia: Plan: 84-year-old male with past medical history significant for type 2 diabetes, dyslipidemia, gout, hypothyroidism, obstructive sleep apnea intolerant to CPAP, paroxysmal atrial fibrillation, history of VT, CKD stage III, peripheral artery disease, left vertebral artery stenosis, chronic systolic CHF, status post AICD, protein calorie malnutrition, cirrhosis of liver with ascites, prostate cancer, scrotal swelling, history of CVA, anemia, history of left arm DVT in 2018, atrial septal aneurysm, CAD s/p CABG in 2016 who lives alone at home ambulates with a walker comes because of weakness and ICD shock. Patient is having ongoing weakness for a week. Couple of nights ago he had ICD shock which patient is not aware of. The next day he got a call from [employer] that had a ICD shock. As per the ER he seems to had heart rate in 200s with atrioventricular reentry tachycardia arrhythmia at the time of the the shock. As per the ICD interrogations patient seems to having A.flutter daily for several hours. Currently patient resting comfortably. Has some soreness in the chest.. Denies any shortness of breath currently. Seems to having shortness of breath on exertion. Denies any headache. Vision is okay. No runny nose or sore throat. No cough. Appetite is very poor. No difficulty swallowing. No nausea. No abdominal pain. Normal bowel and bladder movements.Patient states his lower extremity edema is better than before. Hemodynamics are okay. Patient state his younger brother recently. Daughter lives 10 miles away from him but she is out of town currently. AVRT Paroxysmal Atrial FLutter/Fibrillation History of sustained ventricular tachycardia status post dual-chamber ICD on 02/14/2019, ICD Shock Acute Decompensated HFrEF (EF 25%) R/o CAP -Couple of nights ago his ICD delivered shock which the patient is not aware. Seems his heart rates were in 200s with atrioventricular reentrant tachycardia -he is in a flutter frequently -CT chest and BNP strongly supportive of decompensated HF Plan: -ceftriaxone, doxy x5 days for CAP coverage -cardiology consulted, appreciate recs -continue IV 80 lasix tid per cardiology -transition to PO torsemide tomorrow -PT/OT ordered -continue amiodarone and eliquis CKD stage III -Baseline creatinine 2-2.3 History of prostate cancer S/p radiation treatment completed in August 2024 -Could not tolerate Firmagon -On Casodex -Follows with heme-onc Anemia -Follows with heme-onc CAD s/p CABG -On Eliquis and Plavix Peripheral artery disease -Unsuccessful antegrade and retrograde attempts made at right tibial intervention -On Plavix and Eliquis History of atrial septal aneurysm Patent foramen ovale Hypothyroidism -On Synthyroid Diabetes -Not on meds -SSI Sleep apnea -Seems could not tolerate CPAP I spent a total of 40 minutes in direct patient care, including [id number] time with the patient and/or family, reviewing medical records, ordering and reviewing diagnostic tests, and coordinating care with other healthcare providers. This time includes: history taking, physical examination, medical decision making, counseling, ECG interpretation, imaging interpretation, lab interpretation, orders, and education, excluding time spent in the performance of separately billed services. Admission and Anticipated Discharge Date Admission Date: March 09, 2025 Subjective Patient seen and examined at bedside. Patient doing well today, feels asymptomatic at this time. Review of Systems Review of Systems: CONSTITUTIONAL: Patient denies fevers, chills, sweats and weight changes. EYES: Patient denies any visual symptoms. EARS, NOSE, AND THROAT: No difficulties with hearing. No symptoms of rhinitis or sore throat. CARDIOVASCULAR: Patient denies chest pains, palpitations, orthopnea and paroxysmal nocturnal dyspnea. RESPIRATORY: feels better GI: No nausea, vomiting, diarrhea, constipation, abdominal pain, hematochezia or melena. : No urinary hesitancy or dribbling. No nocturia or urinary frequency. No abnormal urethral discharge. MUSCULOSKELETAL: No myalgias or arthralgias. NEUROLOGIC: No chronic headaches, no seizures. Patient denies numbness, tingling or weakness. PSYCHIATRIC: Patient denies problems with mood disturbance. No problems with anxiety. ENDOCRINE: No excessive urination or excessive thirst. DERMATOLOGIC: Patient denies any rashes or skin changes. Physical Exam Physical Exam: Gen: A&O 3 NAD HEENT: NCAT, EOMI, not icteric. External ears normal. No rhinorrhea. Moist mucous membranes. Neck: Supple, full range of motion, no observable masses, No meningeal sign. Lungs: clear to auscultation bilaterally CV: RRR, no edema. Abdomen: Soft, nondistended, No rebound tenderness. MSK: No joint swelling, no redness. Skin: No rashes, petechiae, lesions. Normal color per patient. Neuro: Normal Gait, Grossly intact. Psych: Appropriate for situation. Results & Data Results & Data Vital Signs (Past 12 Hours) Vital Signs Temp Pulse Pulse Resp BP Pulse Ox O2 Del Method 03/12/25 13:48 73 03/12/25 11:08 36.6 C 72 24 107/69 95 Room Air 03/12/25 07:31 36.5 C 70 20 111/68 92 Room Air 03/12/25 03:40 36.3 C L 72 16 114/73 95 Room Air Laboratory Results -personally reviewed, no leukocytosis, K of 3.3 replenished Medications Administered Acetaminophen (Acetaminophen 325 Mg Tab) 650 mg PO Q4H PRN PRN Reason: Pain or Fever Stop: 04/08/25 23:46 Last Admin: 03/11/25 23:49 Dose: 650 mg Documented By: Admin: 03/11/25 19:48 Dose: 650 mg Documented By: Admin: 03/11/25 12:56 Dose: 650 mg Documented By: VANIA Amiodarone HCl (Amiodarone 200 Mg Tab) 200 mg PO BID [facility] Stop: 04/08/25 23:46 Last Admin: 03/12/25 08:38 Dose: 200 mg Documented By: Admin: 03/11/25 21:12 Dose: 200 mg Documented By: Admin: 03/11/25 09:40 Dose: 200 mg Documented By: Admin: 03/10/25 21:28 Dose: 200 mg Documented By: Admin: 03/10/25 09:53 Dose: 200 mg Documented By: MARY JO Admin: 03/10/25 00:29 Dose: 200 mg Documented By: BRIANNE Amoxicillin/Clavulanate Potassium (Amoxicillin/Clavulanate 500 Mg Tab) 1 tab PO BIDM [facility]; Protocol Stop: 03/15/25 16:59 Last Admin: 03/12/25 08:38 Dose: 1 tab Documented By: Admin: 03/11/25 18:36 Dose: 1 tab Documented By: Admin: 03/11/25 10:01 Dose: 1 tab Documented By: Admin: 03/10/25 16:50 Dose: 1 tab Documented By: MARY JO Apixaban (Apixaban 2.5 Mg Tab) 2.5 mg PO BID [facility] Stop: 04/08/25 23:46 Last Admin: 03/12/25 08:38 Dose: 2.5 mg Documented By: Admin: 03/11/25 21:12 Dose: 2.5 mg Documented By: Admin: 03/11/25 09:43 Dose: 2.5 mg Documented By: Admin: 03/10/25 21:28 Dose: 2.5 mg Documented By: Admin: 03/10/25 09:54 Dose: 2.5 mg Documented By: MARY JO Admin: 03/10/25 00:30 Dose: 2.5 mg Documented By: BRIANNE Bicalutamide (Bicalutamide 50 Mg Tab) 50 mg PO DAILY [facility] Stop: 04/09/25 08:59 Last Admin: 03/12/25 08:39 Dose: 50 mg Documented By: HOLGER Co-signed By: AMY Admin: 03/11/25 09:40 Dose: 50 mg Documented By: VANIA Co-signed By: ABDULAZIZ Admin: 03/10/25 09:53 Dose: 50 mg Documented By: MARY JO Co-signed By: ABDULAZIZ Capsaicin (Capsaicin Cr 0.075% 60 Gm Tube) 1 appln EXT BID [facility]ANI Stop: 04/09/25 08:59 Last Admin: 03/12/25 08:39 Dose: Not Given Documented By: Admin: 03/11/25 21:14 Dose: Not Given Documented By: Admin: 03/11/25 09:44 Dose: 1 appln Documented By: Admin: 03/10/25 21:29 Dose: 1 appln Documented By: Admin: 03/10/25 18:44 Dose: Not Given Documented By: MARY JO Clopidogrel Bisulfate (Clopidogrel Bisulfate 75 Mg Tab) 75 mg PO DAILY MELANI Stop: 04/09/25 08:59 Last Admin: 03/12/25 08:38 Dose: 75 mg Documented By: Admin: 03/11/25 10:52 Dose: 75 mg Documented By: Admin: 03/10/25 09:54 Dose: 75 mg Documented By: MARY JO Doxycycline Hyclate (Doxycycline Hyclate 100 Mg Cap) 100 mg PO BID@1000,2100 [facility] Stop: 03/15/25 20:59 Last Admin: 03/12/25 08:37 Dose: 100 mg Documented By: Admin: 03/11/25 21:12 Dose: 100 mg Documented By: Admin: 03/11/25 09:41 Dose: 100 mg Documented By: Admin: 03/10/25 21:28 Dose: 100 mg Documented By: BRIANNE Ferrous Sulfate (Ferrous Sulfate 325 Mg Tab) 325 mg PO DAILY MELANI Stop: 04/09/25 08:59 Last Admin: 03/12/25 08:37 Dose: 325 mg Documented By: Admin: 03/11/25 09:41 Dose: 325 mg Documented By: Admin: 03/10/25 09:54 Dose: 325 mg Documented By: MARY JO Furosemide (Furosemide 40 Mg/4 Ml Vial) 80 mg IV Q8 [facility]ANI Stop: 04/09/25 15:00 Last Admin: 03/12/25 14:39 Dose: 80 mg Documented By: Admin: 03/12/25 05:46 Dose: 80 mg Documented By: Admin: 03/11/25 21:13 Dose: 80 mg Documented By: Admin: 03/11/25 13:51 Dose: 80 mg Documented By: Admin: 03/11/25 06:26 Dose: 80 mg Documented By: Admin: 03/10/25 21:29 Dose: 80 mg Documented By: Admin: 03/10/25 16:50 Dose: 80 mg Documented By: MARY JO Insulin Aspart (Insulin Aspart Per Unit Charge) 0 units SC ACHS [facility]ELANI Stop: 04/10/25 11:29 Last Admin: 03/12/25 12:14 Dose: 2 units Documented By: HOLGER Co-signed By: AMY Admin: 03/12/25 08:25 Dose: Not Given Documented By: Admin: 03/11/25 21:12 Dose: 1 units Documented By: YAIMA Co-signed By: AUREA Admin: 03/11/25 17:40 Dose: Not Given Documented By: Admin: 03/11/25 12:46 Dose: 1 units Documented By: VANIA Co-signed By: KTS Levothyroxine Sodium (Levothyroxine Sodium 112 Mcg Tablet) 112 mcg PO DAILYBB MELANI Stop: 04/09/25 06:29 Last Admin: 03/12/25 05:46 Dose: 112 mcg Documented By: Admin: 03/11/25 06:26 Dose: 112 mcg Documented By: Admin: 03/10/25 06:35 Dose: 112 mcg Documented By: BRIANNE Multivitamins (Multivitamin Tab) 1 tab PO DAILY MELANI Stop: 04/09/25 08:59 Last Admin: 03/12/25 08:38 Dose: 1 tab Documented By: Admin: 03/11/25 09:42 Dose: 1 tab Documented By: Admin: 03/10/25 09:54 Dose: 1 tab Documented By: MARY JO Potassium Chloride (Potassium Chloride Crtab 20 Meq Tabcr) 20 meq PO BID MELANI Stop: 04/09/25 08:59 Last Admin: 03/12/25 08:37 Dose: 20 meq Documented By: Admin: 03/11/25 21:12 Dose: 20 meq Documented By: Admin: 03/11/25 10:52 Dose: 20 meq Documented By: Admin: 03/10/25 21:28 Dose: 20 meq Documented By: Admin: 03/10/25 09:58 Dose: 20 meq Documented By: MARY JO Tamsulosin HCl (Tamsulosin Hcl 0.4 Mg Cap) 0.4 mg PO DAILY MELANI Stop: 04/09/25 08:59 Last Admin: 03/12/25 08:38 Dose: 0.4 mg Documented By: Admin: 03/11/25 09:42 Dose: 0.4 mg Documented By: Admin: 03/10/25 09:54 Dose: 0.4 mg Documented By: MARY JO Vitamin D (Cholecalciferol 25 Mcg (1000 Units) Tab) 50 mcg PO DAILY MELANI Stop: 04/09/25 08:59 Last Admin: 03/12/25 08:37 Dose: 50 mcg Documented By: Admin: 03/11/25 09:41 Dose: 50 mcg Documented By: Admin: 03/10/25 09:54 Dose: 50 mcg Documented By: MARY JO
[2025-03-13 06:24] LABS: Hematocrit (blood only) 28.0 % (42.0-52.0); Hemoglobin 8.9 g/dl (14.0-18.0); Mean Corpuscular Hemoglobin 29.2 pg (25.0-34.0); Mean Corpuscular Volume 91.8 fL (80.0-100.0); Platelet Count 129 K/uL (130-400); RDW Standard Deviation 63.8 fL (36.4-46.3); Red Blood Count 3.05 M/uL (4.70-6.10); White Blood Count 5.25 K/ul (4.8-10.8)
[2025-03-13 06:55] LABS: Anion Gap 11.0 (3-11); Blood Urea Nitrogen 52.0 mg/dl (6-23); Calcium 9.0 mg/dl (8.6-10.3); Carbon Dioxide 27.0 mmol/L (21-32); Chloride 102.0 mmol/L (98-107); Creatinine Clr Calc Pharmacy 22.5 ml/min; Glucose 179.0 mg/dl (70-99(Fasting)); Magnesium 2.0 mg/dl (1.7-2.4); Potassium 3.7 mmol/L (3.5-5.1); Sodium 140.0 mmol/L (136-145)
[2025-03-13] MEDS: TORSEMIDE 10 MG TAB PO SCH (08:20)
[2025-03-13] MEDS: METOPROLOL SUCC 25MG EXT REL TAB PO SCH (08:21)
[2025-03-13 11:57] VITALS: BP 119/73; PULSE 70; RESP 21; TEMP 97.3; O2SAT 93
--- NOTE | 2025-03-13 12:16 | Cardiology Progress Note ---
Date of Service March 13, 2025 Assessment & Plan (1) Acute on chronic systolic congestive heart failure: (2) Defibrillator discharge: (3) Stroke-like symptoms: (4) History of bacteremia: (5) ICD (implantable cardioverter-defibrillator) in place: (6) Ventricular tachycardia: Plan Complex 84-year-old male admitted on March 09, 2025 with complaints of shortness of breath, weakness, atypical chest discomfort (reproducible with palpation of the chest wall). Cardiology consultation requested due to acute on chronic heart failure and recurrent ventricular tachycardia with successful ICD shock on March 07, 2025. Patient unaware of ICD discharge. Personal review of patient's m ost recent device interrogation reveals recurrent atrial fibrillation since January as likely precipitant to decompensation presentation. Volume status has improved with IV furosemide. Recommendations: * Furosemide 80 mg/day changed to Torsemide 50 mg/day this admission * Will need close metabolic panel follow-up, possibly increased oral potassium supplementation * Metoprolol succinate 12.5 mg/day added this admission * Amiodarone increased to 200 mg BID this admission. AST, ALT, and Alk Phos within normal range, TSH 3.990 uIU/mL this admission * Continue apixaban and clopidogrel * Hypotension and CKD preclude all other CHF guideline directed medical therapies. * General measures advised for the musculoskeletal chest discomfort * Increase activity as tolerated * Outpatient cardiology follow-up * Please contact with any cardiac questions or concerns Admission and Anticipated Discharge Date Admission Date: March 09, 2025 Supervising Physician Co-Signing Physician Notes Patient was seen and personally examined. Care and management as outlined by advanced provider above. Patient responded to IV diuretics. No focal cardiac complaint other than mild tenderness at defibrillator site. Medication adjustments as well outlined Subjective Patient seen and examined. Chart, medications, telemetry reviewed. Feeling the same today. Ongoing nonproductive cough, generalized weakness, and dyspnea. Musculoskeletal chest wall pain unchanged. Fluid balance -5,056 mL's overall Review of Systems Review of Systems: Complete Review of Systems is as stated above, negative, or noncontributory. Physical Exam Physical Exam: General: A&Ox3. NAD. HENT: Normocephalic. Atraumatic. Eyes: PER. Conjunctiva pink, sclera clear. Neck: JVD. Heart: Regular, paced. Grade II/ systolic murmur. No rub. Lungs: Right greater than left basilar crackles. No wheeze. Abdomen: +BS. Soft. Nontender. No masses or organomegaly. Extremities: Minimal edema. Stasis changes. No cyanosis Limited neurological examination is without focal deficits. Pulses: Posterior tibial=0/4. Results & Data Vital Signs (Past 12 Hours) Vital Signs Temp Pulse Resp BP Pulse Ox O2 Del Method 03/13/25 11:56 36.3 C L 70 21 119/73 93 Room Air 03/13/25 08:00 Room Air 03/13/25 07:42 36.5 C 74 22 113/69 97 Room Air 03/13/25 03:53 36.5 C 71 18 105/69 92 Room Air Laboratory Results CBC 03/13/25 Range/Units 05:49 WBC 5.25 (4.8-10.8) K/ul RBC 3.05 L (4.70-6.10) M/uL Hgb 8.9 L (14.0-18.0) g/dl Hct 28.0 L (42.0-52.0) % Plt Count 129 L (130-400) K/uL Comprehensive Metabolic Panel 03/13/25 Range/Units 05:49 Sodium 140 (136-145) mmol/L Potassium 3.7 (3.5-5.1) mmol/L Chloride 102 (98-107) mmol/L Carbon Dioxide 27 (21-32) mmol/L BUN 52 H (6-23) mg/dl Creatinine 2.70 H (0.6-1.4) mg/dl Glucose 179 H (70-99(Fasting)) mg/dl Calcium 9.0 (8.6-10.3) mg/dl Intake and Output 03/12/25 03/13/25 03/13/25 22:59 06:59 14:59 Intake Total 120 / 360 Output Total 1975 Balance -776 / -1616 -530 / -1616 Intake: Oral 120 / 360 Output: Urine 1974 # Bowel Movements Other: Weight 79.8 kg Weight Measurement Method Standing Scale Diagnostic Findings Telemetry: Ventricular paced in the PG Care Time/CCT Total # of Minutes Spent Total Time Spent with Patient: Total time spent is greater than 50% in coordination of care (as documented) at patient's floor/unit and/or counseling patient: Coding Level of Care Code 11096 SUB INP/OBS CARE 3/50MIN Diagnoses Acute on chronic systolic congestive heart failure I50.23 Defibrillator discharge Z45.02 Stroke-like symptoms R29.90 History of bacteremia Z87.898 ICD (implantable cardioverter-defibrillator) in place Z95.810 Ventricular tachycardia I47.2
--- NOTE | 2025-03-13 17:51 | Discharge Summary ---
Discharge Summary Date of Service March 13, 2025 Principal Dx & Hospital Course #1 = Principal Diagnosis (1) Arrhythmia: 84-year-old male with past medical history significant for type 2 diabetes, dyslipidemia, gout, hypothyroidism, obstructive sleep apnea intolerant to CPAP, paroxysmal atrial fibrillation, history of VT, CKD stage III, peripheral artery disease, left vertebral artery stenosis, chronic systolic CHF, status post AICD, protein calorie malnutrition, cirrhosis of liver with ascites, prostate cancer, scrotal swelling, history of CVA, anemia, history of left arm DVT in 2018, atrial septal aneurysm, CAD s/p CABG in 2016 who lives alone at home ambulates with a walker comes because of weakness and ICD shock. Patient is having ongoing weakness for a week. Couple of nights ago he had ICD shock which patient is not aware of. The next day he got a call from [email or web address] that had a ICD shock. As per the ER he seems to had heart rate in 200s with atrioventricular reentry tachycardia arrhythmia at the time of the the shock. As per the ICD interrogations patient seems to having A.flutter daily for several hours. Currently patient resting comfortably. Has some soreness in the chest.. Denies any shortness of breath currently. Seems to having shortness of breath on exertion. Denies any headache. Vision is okay. No runny nose or sore throat. No cough. Appetite is very poor. No difficulty swallowing. No nausea. No abdominal pain. Normal bowel and bladder movements.Patient states his lower extremity edema is better than before. Hemodynamics are okay. Patient state his younger brother recently. Daughter lives 10 miles away from him but she is out of town currently. AVRT Paroxysmal Atrial FLutter/Fibrillation History of sustained ventricular tachycardia status post dual-chamber ICD on 02/14/2019, ICD Shock Acute Decompensated HFrEF (EF 25%) R/o CAP -Couple of nights ago his ICD delivered shock which the patient is not aware. Seems his heart rates were in 200s with atrioventricular reentrant tachycardia -he is in a flutter frequently -CT chest and BNP strongly supportive of decompensated HF Plan: -ceftriaxone, doxy x5 days for CAP coverage -cardiology consulted, appreciate recs -continue IV 80 lasix tid per cardiology -transition to PO torsemide tomorrow -PT/OT ordered -continue amiodarone and eliquis CKD stage III -Baseline creatinine 2-2.3 History of prostate cancer S/p radiation treatment completed in August 2024 -Could not tolerate Firmagon -On Casodex -Follows with heme-onc Anemia -Follows with heme-onc CAD s/p CABG -On Eliquis and Plavix Peripheral artery disease -Unsuccessful antegrade and retrograde attempts made at right tibial intervention -On Plavix and Eliquis History of atrial septal aneurysm Patent foramen ovale Hypothyroidism -On Synthyroid Diabetes -Not on meds -SSI Sleep apnea -Seems could not tolerate CPAP Notes For Next Care Provider 84-year-old male with past medical history significant for type 2 diabetes, dyslipidemia, gout, hypothyroidism, obstructive sleep apnea intolerant to CPAP, paroxysmal atrial fibrillation, history of VT, CKD stage III, peripheral artery disease, left vertebral artery stenosis, chronic systolic CHF, status post AICD, protein calorie malnutrition, cirrhosis of liver with ascites, prostate cancer, scrotal swelling, history of CVA, anemia, history of left arm DVT in 2017, atrial septal aneurysm, CAD s/p CABG in 2015 who lives alone at home ambulates with a walker comes because of weakness and ICD shock. Admitted to medicine for further workup of ICD shock. On medicine, cardiology consulted, found to have significant pulmonary edema, given diuresis with improvement. ICD interrogated, shocked appropriately. Switch to PO diuretics with improvement. On 03/13/2025 patient medically stable for discharge home. To do: [ ] close f/u with cardiology [ ] BMP in one week Medication Changes From Visit -see below Admission HPI Per Admitting Provider 84-year-old male with past medical history significant for type 2 diabetes, dyslipidemia, gout, hypothyroidism, obstructive sleep apnea intolerant to CPAP, paroxysmal atrial fibrillation, history of VT, CKD stage III, peripheral artery disease, left vertebral artery stenosis, chronic systolic CHF, status post AICD, protein calorie malnutrition, cirrhosis of liver with ascites, prostate cancer, scrotal swelling, history of CVA, anemia, history of left arm DVT in 2018, atrial septal aneurysm, CAD s/p CABG in 2016 who lives alone at home ambulates with a walker comes because of weakness and ICD shock. Patient is having ongoing weakness for a week. Couple of nights ago he had ICD shock which patient is not aware of. The next day he got a call from [email or web address] that had a ICD shock. As per the ER he seems to had heart rate in 200s with atrioventricu lar reentry tachycardia arrhythmia at the time of the the shock. As per the ICD interrogations patient seems to having A.flutter daily for several hours. Currently patient resting comfortably. Has some soreness in the chest.. Denies any shortness of breath currently. Seems to having shortness of breath on exertion. Denies any headache. Vision is okay. No runny nose or sore throat. No cough. Appetite is very poor. No difficulty swallowing. No nausea. No abdominal pain. Normal bowel and bladder movements.Patient states his lower extremity edema is better than before. Hemodynamics are okay. Patient state his younger brother recently. Daughter lives 10 miles away from him but she is out of town currently. Past medical history. As mentioned above Past surgical history. Right total knee arthroplasty. H. Colonoscopy. Right shoulder reconstruction. Left shoulder reconstruction. Lithotripsy. Repair of inguinal hernia. Social history. No smoking. No alcohol use. No drug use. Family history. Mother had diabetes. CHF. Brother had IL. Sister has Crohn's disease. Daughter has Crohn's. Discharge Exam Gen: A&O 3 NAD HEENT: NCAT, EOMI, not icteric. External ears normal. No rhinorrhea. Moist mucous membranes. Neck: Supple, full range of motion, no observable masses, No meningeal sign. Lungs: clear to auscultation bilaterally CV: RRR, no edema. Abdomen: Soft, nondistended, No rebound tenderness. MSK: No joint swelling, no redness. Skin: No rashes, petechiae, lesions. Normal color per patient. Neuro: Normal Gait, Grossly intact. Psych: Appropriate for situation. Updated Medication List Medication Instructions Recorded Confirmed Type acetaminophen 500 mg tablet 1,000 mg (2 x 500 mg) PO Q8H PRN 09/15/24 03/09/25 Rx (Tylenol Extra Strength) fever or pain #100 tabs apixaban 2.5 mg tablet 2.5 mg PO BID #60 tabs 09/15/24 03/09/25 Rx clopidogrel 75 mg tablet (Plavix) 75 mg PO DAILY #30 tabs 09/15/24 03/09/25 Rx potassium chloride 20 mEq 20 meq PO BID #60 tabs 09/15/24 03/09/25 Rx tablet,extended release(part/cryst) tamsulosin 0.4 mg capsule 0.4 mg PO DAILY #30 caps 09/15/24 03/09/25 Rx amiodarone 200 mg tablet 200 mg PO BID 03/09/25 03/09/25 History bicalutamide 50 mg tablet (Casodex) 50 mg PO DAILY 03/09/25 03/09/25 History capsaicin 0.1 % topical cream 1 applic topical BID 03/09/25 03/09/25 History cholecalciferol (vitamin D3) 25 50 mcg PO DAILY 03/09/25 03/09/25 History mcg (1,000 unit) capsule (Vitamin D3) ferrous sulfate 325 mg (65 mg 325 mg PO DAILY 03/09/25 03/09/25 History iron) tablet (iron) fish, borage, flaxseed oils-omega 1 cap PO QAM 03/09/25 03/09/25 History 3,6,9 comb no.1 1,200 mg capsule ([place] 3-6-9) levothyroxine 112 mcg tablet 112 mcg PO DAILYBB 03/09/25 03/09/25 History multivitamin 1 tab PO DAILY 03/09/25 03/09/25 History nitroglycerin 0.4 mg sublingual 0.4 mg sublingual DIRECTED PRN 03/09/25 03/09/25 History tablet (Nitrostat) Chest Pain nystatin 100,000 unit/gram topical 1 applic topical BID PRN NEEDED 03/09/25 03/09/25 History powder (Nystop) ondansetron 8 mg disintegrating 8 mg translingual Q8H PRN 03/09/25 03/09/25 History tablet NAUSEA/VOMITING amoxicillin 500 mg-potassium 1 tab PO BIDM 2 days #4 tabs 03/13/25 Rx clavulanate 125 mg tablet doxycycline hyclate 100 mg capsule 100 mg PO BID@1000,2100 2 days #4 03/13/25 Rx caps metoprolol succinate 25 mg 12.5 mg (1/2 x 25 mg) PO QAM #30 03/13/25 Rx tablet,extended release 24 hr tabs torsemide 10 mg tablet 50 mg (5 x 10 mg) PO QAM #30 tabs 03/13/25 Rx Hospital Stay Data Consultations 03/09/25 19:32 ED Decision to Admit Stat 03/10/25 08:00 Consult Cardiology Routine Diagnostic Imagining Performed 03/10/25 11:21 CT chest diagnostic wo con Routine CT head/brain wo con Routine Pending Results Patient Have Any Pending Studies at Discharge: No Discharge Instructions Given to Patient (Per Discharging Provider) 1. Please follow up with PCP, cardiology. 2. Please take medications as prescribed. 3. Please get blood work in one week. Total Time Total Time Spent Total Time Spent (In Minutes): I spent a total of 35 minutes in direct patient care, including [id number] time with the patient and/or family, reviewing medical records, ordering and reviewing diagnostic tests, and coordinating care with other healthcare providers. This time includes: history taking, physical examination, medical decision making, counseling, ECG interpretation, imaging interpretation, lab interpretation, orders, and education, excluding time spent in the performance of separately billed services.
--- NOTE | 2025-03-14 15:11 | Cardiology Consultation ---
Date of Consultation March 14, 2025 Assessment & Plan (1) Syncope: (2) Recurrent ventricular tachycardia: (3) ICD (implantable cardioverter-defibrillator) discharge: (4) ICD (implantable cardioverter-defibrillator) in place: (5) Ischemic cardiomyopathy: (6) History of cardioembolic stroke: Plan Complex 84 year old male readmitted following a syncope episode. Device interrogation with probable recurrent ventricular tachycardia status post antitachycardia pacing (failed) then one shock for VT/VF during atrial fibrillation. Patient without overt angina. Volume status appears normovolemic to minimally hypovolemic. Underlying rhythm is atrial fibrillation/flutter since January 2025. Recommendations: * Supplement potassium orally * Maintain normomagnesemia * Reload amiodarone * Increase metoprolol succinate dosing. * Consult Electrophysiology, RE: ? need for device reprogramming * ? Future device upgrade, to a biventricular pacemaker History of Present Illness Reason for Consultation: ICD discharge Requesting Physician: ED Provider Attending Physician: Chris Sanchezist Service History of Present Illness Elder Garcia is a complex 84-year-old male who was admitted to [facility] March 09, 2025 to March 13, 2025 with complaints of shortness of breath, weakness, atypical chest discomfort (reproducible with palpation of the chest wall). Cardiology consultation requested due to acute on chronic heart failure and recurrent ventricular tachycardia with successful ICD shock on March 07, 2025. Patient unaware of ICD discharge at that time. Personal review of patient's device interrogation revealed recurrent atrial fi brillation/flutter since January as possible precipitant to decompensation presentation. Volume status improved with IV furosemide. Patient discharged to home on March 13, 2025 on an increased dose of amiodarone (200 mg twice per day). Metoprolol succinate prescribed at 12.5 mg/day. Furosemide 80 mg/day changed to torsemide at 50 mg/day. This morning patient awoke feeling relatively well. He describes taking the new medications, still sorting out what he used to take. He describes attending a [employer] meeting. He describes sitting down in a chair and the next thing he recalls was coming to on the floor. No preceding symptoms other than chronically feeling weak and with ongoing musculoskeletal chest discomfort. The event was witnessed by bystanders. No seizure type activity reported. No tongue biting or incontinence noted. Nausea and emesis of phlegm noted in the ER. 150 mg IV amiodarone bolus administered. [employer]tronic device interrogation demonstrates probable ventricular tachycardia with an average ventricular rate of 207 bpm, receiving 2 sequences of antitachycardia pacing followed by 35 J shock with post shock rhythm appearing to be atrial fibrillation/flutter with ventricular pacing. Patient notes no preceding symptoms prior to syncopal event which occurred in sitting position. He specifically denies preceding chest pain, palpitations, dizziness, or unusual shortness of breath. No fevers or chills. Prior Problem List: Atherosclerotic coronary artery disease Status post acute myocardial infarction circa 1996 Ischemic cardiomyopathy, LVEF 30-35%. Status post CABG x 3 on 10/21/2015. MCGEE to the LAD. SVG to OM1. SVG to the OM2. Atrial fibrillation, perviously paroxysmal, persistent since January 2025 Recurrent cardioembolic CVAs Ocular migraine Asymptomatic frequent ventricular ectopy Sustained ventricular tachycardia s/p dual chamber ICD on 02/14/2019 and initiation of amiodarone. Recurrent VT on 02/18/2019 noncompliance with medications post discharge, status post ATP x 2 Peripheral arterial disease Atrial septal aneurysm Patent foramen ovale Hypertension Dyslipidemia Hypothyrodism Type II diabetes mellitus with neuropathy, left foot diabetic ulcer Stage III-IV chronic kidney disease History of multiple kidney stones Obstructive sleep apnea, untreated DVT in Left arm after left shoulder surgery from 11/2016 Iron-deficiency anemia Prostate cancer, status post radiation treatment, Casodex Cirrhosis Gout Family History: Mother at 92. Father in an MVA. Brother with CAD. Social History: Nonsmoker. No alcohol. No illegal drug use. . Single. Son at the age of 49 with an AL. Allergies Allergy/AdvReac Type Severity Reaction Status Date / Time cefazolin Allergy Intermediate Rash Verified 03/09/25 19:39 ceftriaxone Allergy Intermediate Rash Verified 03/09/25 19:39 lisinopril AdvReac Mild COUGHING Verified 03/09/25 19:39 Home Medications Medication Instructions Recorded Confirmed Type acetaminophen 500 mg tablet 1,000 mg (2 x 500 mg) PO Q8H PRN 09/15/24 03/14/25 Rx (Tylenol Extra Strength) fever or pain #100 tabs apixaban 2.5 mg tablet 2.5 mg PO BID #60 tabs 09/15/24 03/14/25 Rx clopidogrel 75 mg tablet (Plavix) 75 mg PO DAILY #30 tabs 09/15/24 03/14/25 Rx potassium chloride 20 mEq 20 meq PO BID #60 tabs 09/15/24 03/14/25 Rx tablet,extended release(part/cryst) tamsulosin 0.4 mg capsule 0.4 mg PO DAILY #30 caps 09/15/24 03/14/25 Rx amiodarone 200 mg tablet 200 mg PO BID 03/09/25 03/14/25 History bicalutamide 50 mg tablet (Casodex) 50 mg PO DAILY 03/09/25 03/14/25 History capsaicin 0.1 % topical cream 1 applic topical BID 03/09/25 03/14/25 History cholecalciferol (vitamin D3) 25 50 mcg PO DAILY 03/09/25 03/14/25 History mcg (1,000 unit) capsule (Vitamin D3) ferrous sulfate 325 mg (65 mg 325 mg PO DAILY 03/09/25 03/14/25 History iron) tablet (iron) fish, borage, flaxseed oils-omega 1 cap PO QAM 03/09/25 03/14/25 History 3,6,9 comb no.1 1,200 mg capsule ([place] 3-6-9) levothyroxine 112 mcg tablet 112 mcg PO DAILYBB 03/09/25 03/14/25 History multivitamin 1 tab PO DAILY 03/09/25 03/14/25 History nitroglycerin 0.4 mg sublingual 0.4 mg sublingual DIRECTED PRN 03/09/25 03/14/25 History tablet (Nitrostat) Chest Pain nystatin 100,000 unit/gram topical 1 applic topical BID PRN NEEDED 03/09/25 03/14/25 History powder (Nystop) ondansetron 8 mg disintegrating 8 mg translingual Q8H PRN 03/09/25 03/14/25 History tablet NAUSEA/VOMITING amoxicillin 500 mg-potassium 1 tab PO BIDM 2 days #4 tabs 03/13/25 03/14/25 Rx clavulanate 125 mg tablet doxycycline hyclate 100 mg capsule 100 mg PO BID@1000,2100 2 days #4 03/13/25 03/14/25 Rx caps metoprolol succinate 25 mg 12.5 mg (1/2 x 25 mg) PO QAM #30 03/13/25 03/14/25 Rx tablet,extended release 24 hr tabs torsemide 10 mg tablet 50 mg (5 x 10 mg) PO QAM #30 tabs 03/13/25 03/14/25 Rx Patient History Medical History Streptococcemia Acute kidney injury superimposed on stage 3b chronic kidney disease History of aspiration pneumonia admitted to [facility] 04/2024 Ischemic cardiomyopathy "prior EF 35-40% in August 2008; improved EF 50-54% on 11/24/16 echo" Paroxysmal atrial fibrillation hx--"postoperative" History of cardioembolic stroke ~2016, 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 Mitral regurgitation follows w/ Dr Hyde HTN (hypertension) Dyslipidemia Diabetes mellitus no meds currently BHUPINDER (obstructive sleep apnea) no device PFO (patent foramen ovale) Atrial septal defect Gout Diabetic neuropathy Chronic anticoagulation Hx of renal calculi Hx of ventricular tachycardia Transient vision disturbance of both eyes Peripheral artery disease Rectal bleeding Bowel obstruction (04/2024) recent admission to [facility] DJD of left shoulder Surgical History 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" History of total right knee replacement (2004) History of lithotripsy Hx of inguinal hernia repair (1954) Hx of colonoscopy History of right shoulder replacement (2009) History of left shoulder replacement AICD present, double chamber [employer], implanted 2018 Family History Brother V-tach required AICD Social History Smoking Status: Never smoker Second Hand Exposure: No; Do You Dip or Chew Tobacco: No; Hx Alcohol Use: No Hx Substance Use: No Preferred Language: Polish Communication Ability: Effective Visual Impairment: No Limitations Hearing Ability: Normal Dehydration Plant Operator Required: No Beliefs That Will Affect Care: None marital status: Single Current Living Situation: Alone Current Living Situation Comment: home alone, daughter lives 12 miles away current occupational status: retired Feels Safe at Home: Yes Safety Concerns: Feels Safe At This Time Diet: regular during the past year weight has: decreased > 10 lbs Assistive Devices: Walker Review of Systems Review of Systems: Complete Review of Systems is as stated above, negative, or noncontributory. Physical Exam Physical Exam: General: No acute distress Skin: + Pallor HENT: Abrasion on the lateral right eyebrow, right lateral forehead. Eyes: PER. Conjunctiva pink, sclera pale. Neck: No JVD. Chest: There is diffuse left lateral chest wall tenderness. Heart: Regular, paced at 70. Grade III/ systolic murmur. Lungs: Diminished. Decrease. Clear to auscultation. Abdomen: +BS. No organomegaly. Extremities: No significant edema. No cyanosis. Limited neurological examination is without focal deficits. Pulses: Posterior tibial=0/4. Results & Data Diagnostic Findings Device interrogation today is as above. This is a Medtronic dual chamber pacemaker ICD and not a BiV ICD. 17 months remaining longevity noted. Atrial fibrillation/flutter noted since January PG Care Time/CCT Total # of Minutes Spent Total Time Spent with Patient: Total time spent is greater than 50% in coordination of care (as documented) at patient's floor/unit and/or counseling patient: Coding Level of Care Code 17614 IN/OBS CONSULT LVL 5,80M Diagnoses Syncope R55 Recurrent ventricular tachycardia I47.20 ICD (implantable cardioverter-defibrillator) discharge Z45.02 ICD (implantable cardioverter-defibrillator) in place Z95.810 Ischemic cardiomyopathy I25.5 History of cardioembolic stroke Z86.73
--- NOTE | 2025-03-14 17:53 | Communication Note ---
Date of Service: March 14, 2025 Patient was seen and personally examined. Patient known to me from recent admission. Assessment plan as outlined in cardiology note by advanced provider. 84-year-old male readmitted following syncopal event for symptomatic arrhythmia. Known ischemic cardiomyopathy and past ventricular tachycardia with indwelling pacer defibrillator. Device did fire during event. Patient without recollection but did fall from a sitting position to a chair to the floor. Plan as above reload amiodarone increase metoprolol succinate Involve electrophysiology with management
--- NOTE | 2025-03-16 13:36 | Electrocardiogram Report ---
Test Reason : Blood Pressure : */* mmHG Vent. Rate : 80 BPM Atrial Rate : 70 BPM P-R Int : * ms QRS Dur : 208 ms QT Int : 520 ms P-R-T Axes : * -71 99 degrees QTcB Int : 599 ms Ventricular-paced rhythm Underlying atrial fibrillation Abnormal ECG When compared with ECG of 09-Sep-2024 05:14, Previous tracing suggests pacing lead issue Confirmed by Sumit Cervantes ([id number]) on 03/16/2025 1:35:37 PM Referred By: REFERRED SELF Confirmed By: Sumit Cervantes
== END 2025-03-13 14:59 | disposition home or self-care (01) | DRG 308 ==
LOC: ED 17:19 → 4W 22:41

== ENCOUNTER 2025-03-14 13:11 | Inpatient (IN) ==
--- NOTE | 2025-03-14 13:43 | Emergency Department Note ---
Impression & Plan Syncope, V-tach, Elevated troponin, CHF (congestive heart failure), Acute head trauma, Anemia ED Provider Note NAME: Earl ZACARIAS AGE: 84 SEX: M : 1940 ARRIVES VIA: Ambulance INFORMANT: [Patient][EMS, nursing] ED PROVIDER(S): [Tyler Rankin MD] CHIEF COMPLAINT: Syncope HISTORY OF PRESENT ILLNESS: The patient is an 84-year-old male who was discharged from our hospital yesterday. He was in for defibrillator firing. He has a very poor EF. The patient did have his amiodarone dose increased during his hospital stay. The patient was sitting on a chair today. As per bystanders, he slumped out of the chair and had a syncopal event. He did strike the right side of his head on the floor. There was no seizure activity reported. The patient remembers waking up on the floor. He was brought by ambulance for evaluation. En route to the hospital, he had a run of ventricular tachycardia. He was administered 150 mg of IV amiodarone. He was awake without chest pain complaints during the tachycardic spell. The patient does have a defibrillator and pacer, he states that today when he passed out, he had no warning. He did not feel faint, he did not feel any palpitations, he was not short of breath. Of note, the patient was made an injury alert as he does take Eliquis and had struck his head. He currently has no headache, neck pain, back pain, rib pain, chest pain or abdominal pain. No extremity discomfort. PMHx/PSHx/Social Hx: See Below PHYSICAL EXAM: Primary Survey Airway: Intact Breathing: Breath sounds equal bilaterally. No respiratory distress Circulation: Skin warm, capillary refill less than 2 seconds Disability: Pupils equal and reactive to light Motor Function: Moves all extremities. Sensory: No deficits Secondary Survey GEN: Well developed and well-nourished HEAD: Normocephalic, there is an abrasion to the lateral aspect of the right eyebrow and over the lateral aspect of the right forehead, no laceration requiring repair. EYES: Pupils round and reactive to light, conjunctiva clear, extraocular movements intact ENT: No fluid in external acoustic canals, nares patent, oropharynx clear NECK: Midline trachea, no cervical spine tenderness HEART: Regular rate and rhythm. 2/6 to 3/6 systolic murmur. LUNGS: There are some scattered crackles in both the right and left lung, no respiratory distress. CHEST: Chest wall non-tender, no bruising/deformity ABD: No contusions, soft, non-tender, no distention PELVIS: Stable to rock BACK: No step offs or deformities, T-L spine non tender EXT: Moving all extremities well, no gross deformities NEURO: No focal motor deficits, no sensory deficits DIFFERENTIAL DIAGNOSIS: Dysrhythmia, V. tach, intracranial bleeding, cervical spine injury, chest or abdominal trauma, among others. EMERGENCY DEPARTMENT PROCEDURES: C-spine was clinically cleared at 1440, once the CT imaging returned. MEDICAL DECISION MAKING: There is no leukocytosis. The patient is anemic but this is a baseline finding when looking back at previous testing. The platelet count is low, also a baseline finding. INR slightly high at 1.3, likely from his Eliquis use. There was evidence for renal insufficiency but this is a baseline issue. No worrisome liver enzyme elevation. No evidence for pancreatitis. ECG showed a ventricular pacemaker. Cardiac enzyme testing x 1 was slightly elevated, looking back at previous testing, he has a chronically elevated troponin value. Chest film shows cardiomegaly and some mild CHF. Brain CT shows no acute bleed or mass effect. C-spine CT shows no acute fracture. By exam, there was no evidence for true injury to the back, ribs/chest, abdomen or extremities. The patient had presented with a syncopal episode. A pacemaker interrogation was done, as per the rep on-call, the patient had a run of presumed V. tach with a heart rate of 207 and 214. He was defibrillated by his device and this broke the dysrhythmia. Luckily, the patient did not suffer any serious trauma from his syncopal spell/fall. He had the syncopal event because of dysrhythmia. I did speak with cardiology, he is to be hospitalized. Cardiology will be making recommendations on medication changes. I spoke with the patient, I spoke with case management, the on-call hospitalist was consulted. Currently, the patient is resting comfort. He really has no complaints. Prior/Outside records/notes reviewed: Yesterday's discharge summary note describing his presentation, hospital course and outpatient plan. ECG per my interpretation: Indication was syncope. The ECG shows a ventricular pacemaker with a rate of 86. There is no obvious ST elevation, no PVCs. The QTc is 639. Continuous Cardiac Monitoring per my interpretation: An order was placed for continuous cardiac monitoring. The monitor shows a rate of 76 with ventricular pacing. Imaging/x-ray results per my interpretation: Chest x-ray shows cardiomegaly and some mild CHF. Chronic Medical/Social conditions affecting care: Advanced age, currently on Eliquis. Care/Management discussed with: Cardiology-Dr. Cardoza. Case management and the on-call hospitalist. Level of care consideration(s): After review of the information above and other included data: --I believe the patient requires escalation of care to admission Critical Care Note: I have personally spent 42 minutes of critical care time in the direct management of this patient. This includes bedside care, interpretation of diagnostic studies, and testing, discussion with consultants, patient, and family members, and other required patient management activities. This 42 minutes is in excess of all separately billable procedures. DISPOSITION: Admission Past Med/Surg History Problem List (Updated 03/14/25 @ 19:17 by Tyler Rankin MD) Anemia (Acute) Acute head trauma (Acute) CHF (congestive heart failure) (Acute) Elevated troponin (Acute) V-tach (Acute) Syncope (Acute) Recurrent ventricular tachycardia Syncope Atrial fibrillation and flutter (Acute) ICD (implantable cardioverter-defibrillator) discharge (Acute) ICD (implantable cardioverter-defibrillator) in place History of bacteremia Arrhythmia Allergic drug rash due to anti-infective agent Wound of left foot Acute on chronic systolic congestive heart failure (Acute) Demand ischemia Streptococcal bacteremia Severe sepsis with acute organ dysfunction Diarrhea Thrombocytopenia Acute systolic heart failure Ascites Hyperkalemia Elevated troponin level Elevated liver function tests Hepatopathy Acute lactic acidosis Pulmonary edema (Acute) Sepsis (Acute) Elevated brain natriuretic peptide (BNP) level (Acute) Non-ST elevation DE (NSTEMI) (Acute) Acute exacerbation of CHF (congestive heart failure) (Acute) Acute hypoxemic respiratory failure (Acute) Acute dyspnea (Acute) Prostate cancer (Chronic 05/02/24) Rectal bleeding Elevated lactic acid level (Acute) Aspiration pneumonia of left lower lobe (Acute) Small bowel obstruction (Acute) Incarcerated umbilical hernia (Acute) Small bowel obstruction Incarcerated umbilical hernia Elevated prostate specific antigen (PSA) Hypomagnesemia (Acute) VENITA (acute kidney injury) (Acute) Stroke-like symptoms (Acute) Transient vision disturbance of both eyes Peripheral arterial disease Urinary symptom or sign Ventricular tachycardia (Acute) Defibrillator discharge (Acute) History of left shoulder replacement (Chronic) History of inguinal hernia repair (Chronic) "1954" H/O lithotripsy (Chronic) History of right shoulder replacement (Chronic) "2009" History of total right knee replacement (Chronic) "2004 " 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" Chronic anticoagulation (Chronic) 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) Gout (Chronic) Atrial septal aneurysm (Chronic) PFO (patent foramen ovale) (Chronic) BHUPINDER (obstructive sleep apnea) (Chronic) "not on CPAP" DM type 2 (diabetes mellitus, type 2) (Chronic) Dyslipidemia (Chronic) HTN (hypertension) (Chronic) Mitral regurgitation (Chronic) History of cardioembolic stroke (Chronic) Paroxysmal atrial fibrillation (Chronic) "postoperative" Ischemic cardiomyopathy (Chronic) "prior EF 35-40% in August 2008; improved EF 50-54% on 11/24/16 echo" Medical History Streptococcemia Acute kidney injury superimposed on stage 3b chronic kidney disease History of aspiration pneumonia admitted to [facility] 04/2024 Ischemic cardiomyopathy "prior EF 35-40% in August 2008; improved EF 50-54% on 11/24/16 echo" Paroxysmal atrial fibrillation hx--"postoperative" History of cardioembolic stroke ~2016, 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 Mitral regurgitation follows w/ Dr Hdye HTN (hypertension) Dyslipidemia Diabetes mellitus no meds currently BHUPINDER (obstructive sleep apnea) no device PFO (patent foramen ovale) Atrial septal defect Gout Diabetic neuropathy Chronic anticoagulation Hx of renal calculi Hx of ventricular tachycardia Transient vision disturbance of both eyes Peripheral artery disease Rectal bleeding Bowel obstruction (04/2024) recent admission to [facility] DJD of left shoulder Surgical History 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" History of total right knee replacement (2004) History of lithotripsy Hx of inguinal hernia repair (1954) Hx of colonoscopy History of right shoulder replacement (2009) History of left shoulder replacement AICD present, double chamber [employer], implanted 2019 Family History Brother Katt required AICD Social History Smoking Status: Never smoker Second Hand Exposure: No; Do You Dip or Chew Tobacco: No; Hx Alcohol Use: No Hx Substance Use: No Preferred Language: Slovenian Communication Ability: Effective Visual Impairment: No Limitations Hearing Ability: Normal Development Manager Required: No Beliefs That Will Affect Care: None marital status: Single Current Living Situation: Alone Current Living Situation Comment: home alone, daughter lives 12 miles away current occupational status: retired Feels Safe at Home: Yes Safety Concerns: Feels Safe At This Time Diet: regular during the past year weight has: decreased > 10 lbs Assistive Devices: Walker Allergies Allergies Allergy/AdvReac Type Severity Reaction Status Date / Time cefazolin Allergy Intermediate Rash Verified 03/09/25 19:39 ceftriaxone Allergy Intermediate Rash Verified 03/09/25 19:39 lisinopril AdvReac Mild COUGHING Verified 03/09/25 19:39 Home Meds Home Medications Medication Instructions Recorded Confirmed amiodarone 200 mg tablet 200 mg PO BID 03/09/25 03/14/25 bicalutamide 50 mg tablet (Casodex) 50 mg PO DAILY 03/09/25 03/14/25 capsaicin 0.1 % topical cream 1 applic topical BID 03/09/25 03/14/25 cholecalciferol (vitamin D3) 25 50 mcg PO DAILY 03/09/25 03/14/25 mcg (1,000 unit) capsule (Vitamin D3) ferrous sulfate 325 mg (65 mg 325 mg PO DAILY 03/09/25 03/14/25 iron) tablet (iron) fish, borage, flaxseed oils-omega 1 cap PO QAM 03/09/25 03/14/25 3,6,9 comb no.1 1,200 mg capsule ([place] 3-6-9) levothyroxine 112 mcg tablet 112 mcg PO DAILYBB 03/09/25 03/14/25 multivitamin 1 tab PO DAILY 03/09/25 03/14/25 nitroglycerin 0.4 mg sublingual 0.4 mg sublingual DIRECTED PRN 03/09/25 03/14/25 tablet (Nitrostat) Chest Pain nystatin 100,000 unit/gram topical 1 applic topical BID PRN NEEDED 03/09/25 03/14/25 powder (Nystop) ondansetron 8 mg disintegrating 8 mg translingual Q8H PRN 03/09/25 03/14/25 tablet NAUSEA/VOMITING Previous Rx's Medication Instructions Recorded acetaminophen 500 mg tablet 1,000 mg (2 x 500 mg) PO Q8H PRN 09/15/24 (Tylenol Extra Strength) fever or pain #100 tabs apixaban 2.5 mg tablet 2.5 mg PO BID #60 tabs 09/15/24 clopidogrel 75 mg tablet (Plavix) 75 mg PO DAILY #30 tabs 09/15/24 potassium chloride 20 mEq 20 meq PO BID #60 tabs 09/15/24 tablet,extended release(part/cryst) tamsulosin 0.4 mg capsule 0.4 mg PO DAILY #30 caps 09/15/24 amoxicillin 500 mg-potassium 1 tab PO BIDM 2 days #4 tabs 03/13/25 clavulanate 125 mg tablet doxycycline hyclate 100 mg capsule 100 mg PO BID@1000,2100 2 days #4 03/13/25 caps metoprolol succinate 25 mg 12.5 mg (1/2 x 25 mg) PO QAM #30 03/13/25 tablet,extended release 24 hr tabs torsemide 10 mg tablet 50 mg (5 x 10 mg) PO QAM #30 tabs 03/13/25 Results & Data (ED) Vital Signs Vital Signs - 24 hr 03/14/25 13:18 03/14/25 13:36 03/14/25 13:58 Temperature 36.9 C Temperature Source Oral Pulse Rate 77 76 Pulse Rate [Apical] 72 Pulse Rhythm Pulse Rhythm [Apical] Regular Pulse Strength [Apical] Normal Respiratory Rate 18 21 Respiratory Effort / Characteristics Non-Labored Spontaneous Respiratory Depth Normal Respiratory Pattern Regular Blood Pressure 111/77 Blood Pressure [Right Arm] 111/77 Blood Pressure Mean 88 Blood Pressure Mean [Right Arm] 88 Blood Pressure Position [Right Arm] Sitting Pulse Oximetry 93 Oxygen Delivery Method Room Air Room Air Sepsis Recent Fever Within 48 Hours No Sepsis New/Unexplained Change in Mental Status No Sepsis Action Taken by Nursing No Action Required 03/14/25 13:58 03/14/25 13:58 03/14/25 13:58 Temperature Temperature Source Pulse Rate 71 Pulse Rate [Apical] 72 Pulse Rhythm Regular Pulse Rhythm [Apical] Regular Pulse Strength [Apical] Normal Respiratory Rate 21 Respiratory Effort / Characteristics Non-Labored Spontaneous Respiratory Depth Normal Respiratory Pattern Regular Blood Pressure Blood Pressure [Right Arm] 111/77 Blood Pressure Mean Blood Pressure Mean [Right Arm] 88 Blood Pressure Position [Right Arm] Sitting Pulse Oximetry Oxygen Delivery Method Room Air Room Air Room Air Sepsis Recent Fever Within 48 Hours Sepsis New/Unexplained Change in Mental Status Sepsis Action Taken by Nursing 03/14/25 14:02 03/14/25 15:00 Temperature Temperature Source Pulse Rate Pulse Rate [Apical] 76 91 H Pulse Rhythm Pulse Rhythm [Apical] Regular Pulse Strength [Apical] Respiratory Rate 17 18 Respiratory Effort / Characteristics Respiratory Depth Respiratory Pattern Blood Pressure Blood Pressure [Right Arm] 102/75 115/78 Blood Pressure Mean Blood Pressure Mean [Right Arm] 84 90 Blood Pressure Position [Right Arm] Pulse Oximetry 96 97 Oxygen Delivery Method Room Air Room Air Sepsis Recent Fever Within 48 Hours Sepsis New/Unexplained Change in Mental Status Sepsis Action Taken by Shelter Medications Current Medication List: was personally reviewed by me Laboratory Data Attestation: I reviewed the patient's lab results. 03/14/25 13:20 03/14/25 13:20 Lab Results 03/14/25 03/14/25 Range/Units 13:20 13:26 WBC 4.68 L (4.8-10.8) K/ul RBC 3.00 L (4.70-6.10) M/uL Hgb 8.6 L (14.0-18.0) g/dl Hct 27.8 L (42.0-52.0) % MCV 92.7 (80.0-100.0) fL MCH 28.7 (25.0-34.0) pg MCHC 30.9 L (32.0-36.0) g/dL RDW Std Deviation 64.1 H (36.4-46.3) fL RDW Coeff of Perez 19.2 H (11.5-14.5) % Plt Count 118 L (130-400) K/uL MPV 10.4 (9.4-12.4) fL Immature Gran % (Auto) 0.2 % Neut % (Auto) 71.7 % Lymph % (Auto) 16.5 % [place] % (Auto) 7.1 % Eos % (Auto) 3.6 % Baso % (Auto) 0.9 % Neut # (Auto) 3.36 (1.40-6.50) K/uL Lymph # (Auto) 0.77 L (1.20-3.40) K/uL [place] # (Auto) 0.33 (0.11-0.59) K/uL Eos # (Auto) 0.17 (0.00-0.50) K/uL Baso # (Auto) 0.04 (0.00-0.20) K/uL Immature Gran # (Auto) 0.01 (0.01-0.20) K/uL PT 13.5 H (9.0-12.0) Seconds INR 1.3 H (0.9-1.1) APTT 36 H (21-31) Seconds PTT Ratio 1.3 Sodium 140 (136-145) mmol/L Potassium 3.5 (3.5-5.1) mmol/L Chloride 101 (98-107) mmol/L Carbon Dioxide 26 (21-32) mmol/L Anion Gap 13 H (3-11) BUN 52 H (6-23) mg/dl Creatinine 2.84 H (0.6-1.4) mg/dl Est Cr Clr Drug Dosing 21.9 ml/min eGFR 21.47 BUN/Creatinine Ratio 18.3 (10-20) Glucose 187 H (70-99(Fasting)) mg/dl POC Glucose 188 H (70-99) mg/dl Calcium 9.2 (8.6-10.3) mg/dl Magnesium 2.0 (1.7-2.4) mg/dl Total Bilirubin 1.5 H (0.2-1.0) mg/dl AST 15 (13-39) U/L ALT 10 (7-52) U/L Alkaline Phosphatase 80 (34-104) U/L Troponin I High Sens 21.7 H (0-20) pg/ml Total Protein 6.7 (6.0-8.3) gm/dl Albumin 3.7 (3.4-5.0) gm/dl Globulin 3.0 (2.5-4.0) gm/dl Albumin/Globulin Ratio 1.2 (0.9-2) Lipase 21 (11-82) U/L Administered Medications Amoxicillin/Clavulanate Potassium (Amoxicillin/Clavulanate 500 Mg Tab) 1 tab PO BIDM MELANI; Protocol Stop: 03/16/25 16:59 Last Admin: 03/14/25 17:01 Dose: 1 tab Documented By: BROOKE Discontinued Medications Potassium Chloride (Potassium Chloride Crtab 20 Meq Tabcr) 40 meq PO NOW STA Stop: 03/14/25 15:57 Last Admin: 03/14/25 17:01 Dose: 40 meq Documented By: BROOKE Imaging Data Radiologist's Impression: Chest X-Ray 03/14/25 13:32 XR chest 1V portable CLINICAL HISTORY: Trauma COMPARISON STUDY: 03/09/2025 FINDINGS: Stable CABG and pacemaker and bilateral shoulder prostheses. Stable cardiomegaly with mild pulmonary vascular congestion. No consolidation or pleural effusion. No pneumothorax. No grossly displaced rib fractures seen. IMPRESSION: 1. Mild CHF. 2. No other acute findings seen. ACT 112: Negative or not required by law. Electronically signed by: Babak Ayala M.D. 03/14/2025 2:[address] 03/14/25 13:33 CT cervical spine wo con CT DOSE: 1028.57 mGy.cm CLINICAL HISTORY: 84 years-old Male with Trauma. Acute neck pain status post trauma COMPARISON: Head CT same day, chest CT 03/10/2025, MR cervical spine 08/25/2008. TECHNIQUE: Multiple axial CT images of the cervical spine were obtained without contrast. A dose lowering technique was utilized adhering to the principles of ALARA. FINDINGS: Multilevel intervertebral disc space narrowing, moderate to severe at C6-C7. Chondrocalcinosis with moderate multilevel spondylotic spurring with disc osteophyte complex formations. Moderate multilevel facet arthrosis. There is severe facet arthrosis in the upper thoracic spine and also C7-T1. Mild T1 and T2 compression deformities are similar to the recent chest CT. Partially imaged mild superior endplate compression at T3 appears new however may be artifactual. No acute cervical spine fracture or subluxation identified. Multilevel neural foraminal narrowing. The cervical soft tissues appear unremarkable. Atherosclerosis of the carotid bulbs. Intralobular septal thickening of the lung apices. Left subclavian pacer. IMPRESSION: 1. Motion degraded exam without acute cervical spine fracture or subluxation identified. 2. Mild superior endplate compression deformities at T1 and T2 appears chronic. Possible mild superior endplate compression at T3 which was not seen on the study from 03/10/2025. This is favored to be artifactual, however should be correlated with point tenderness to exclude a subtle fracture. ACT 112: Negative or not required by law. The above report was generated using voice recognition software. It may contain grammatical, syntax or spelling errors. Electronically signed by: Dennis Bazzi M.D. 03/14/2025 2:[address] 03/14/25 13:33 CT SCAN OF THE BRAIN WITHOUT IV CONTRAST CLINICAL HISTORY: Syncopal episode. COMPARISON STUDY: MRI of the brain March 12, 2023. Head CT March 10, 2025. TECHNIQUE: Unenhanced axial CT scan of the brain was performed from the vertex to the skull base. A dose lowering technique was utilized adhering to the principles of ALARA. FINDINGS: Brain parenchyma: No acute intracranial hemorrhage, midline shift or mass effect is present. Leiva-white matter differentiation is preserved. There are no extra- axial fluid collections. There are no findings to suggest acute dural sinus thrombosis or acute territorial infarct. White matter hypodensities are similar to prior exam and favor small vessel disease. A small focus of encephalomalacia within the posterior left parietal lobe is also unchanged. Ventricles, sulci, cisterns: There is no hydrocephalus. The basal cisterns are patent. Calvarium: Unremarkable. Sinuses and mastoids: The visualized paranasal sinuses are clear. The mastoid air cells are well pneumatized. Orbits: The bony orbits are grossly intact. IMPRESSION: 1. No acute intracranial findings. No change in appearance of the brain. 2. No calvarial fractures. ACT 112: Negative or not required by law. Electronically signed by: Shiva Chow M.D. 03/14/2025 2:32 PM Discharge Plan Visit Data Chief Complaint: Syncope Stated Complaint: INJURY ALERT, SYNCOPE ED Provider: Tyler Rankin Discharge Problem: Syncope, V-tach, Elevated troponin, CHF (congestive heart failure), Acute head trauma, Anemia Patient Disposition: Admitted As Inpatient Condition: Serious Discharge Instructions Interventions: ED Discharge Assessment Last Done: 03/14/25 15:58 Discharge Problem: Syncope Qualifiers: Syncope type: unspecified Qualified Code(s): R55 - Syncope and collapse CHF (congestive heart failure) Qualifiers: Heart failure type: unspecified Heart failure chronicity: acute on chronic Q ualified Code(s): I50.9 - Heart failure, unspecified Acute head trauma Qualifiers: Encounter type: initial encounter Qualified Code(s): S09.90XA - Unspecified injury of head, initial encounter Anemia Qualifiers: Anemia type: unspecified type Qualified Code(s): D64.9 - Anemia, unspecified
[2025-03-14 13:45] LABS: Hematocrit (blood only) 27.8 % (42.0-52.0); Hemoglobin 8.6 g/dl (14.0-18.0); Immature Granulocytes # (auto) 0.01 K/uL (0.01-0.20); Immature Granulocytes % (auto) 0.2 %; Mean Corpuscular Hemoglobin 28.7 pg (25.0-34.0); Mean Corpuscular Volume 92.7 fL (80.0-100.0); Platelet Count 118 K/uL (130-400); RDW Standard Deviation 64.1 fL (36.4-46.3); Red Blood Count 3.00 M/uL (4.70-6.10); White Blood Count 4.68 K/ul (4.8-10.8)
--- NOTE | 2025-03-14 14:03 | XRay Report ---
XR chest 1V portable CLINICAL HISTORY: Trauma COMPARISON STUDY: 03/09/2025 FINDINGS: Stable CABG and pacemaker and bilateral shoulder prostheses. Stable cardiomegaly with mild pulmonary vascular congestion. No consolidation or pleural effusion. No pneumothorax. No grossly disp laced rib fractures seen. IMPRESSION: 1. Mild CHF. 2. No other acute findings seen. ACT 112: Negative or not required by law. Electronically signed by: Babak Ayala M.D. 03/14/2025 2:02 PM
[2025-03-14 14:05] LABS: Alanine Aminotransferase 10.0 U/L (7-52); Albumin Globulin Ratio 1.2 (0.9-2); Alkaline Phosphatase 80.0 U/L (34-104); Anion Gap 13.0 (3-11); Bilirubin,Total 1.5 mg/dl (0.2-1.0); Blood Urea Nitrogen 52.0 mg/dl (6-23); Calcium 9.2 mg/dl (8.6-10.3); Carbon Dioxide 26.0 mmol/L (21-32); Chloride 101.0 mmol/L (98-107); Creatinine Clr Calc Pharmacy 21.9 ml/min; Globulin 3.0 gm/dl (2.5-4.0); Glucose 187.0 mg/dl (70-99(Fasting)); Lipase 21.0 U/L (11-82); Magnesium 2.0 mg/dl (1.7-2.4); Potassium 3.5 mmol/L (3.5-5.1); Sodium 140.0 mmol/L (136-145); Total Protein 6.7 gm/dl (6.0-8.3)
--- NOTE | 2025-03-14 14:34 | CT Scan Report ---
CT cervical spine wo con CT DOSE: 1028.57 mGy.cm CLINICAL HISTORY: 84 years-old Male with Trauma. Acute neck pain status post trauma COMPARISON: Head CT same day, chest CT 03/10/2025, MR cervical spine 08/25/2008. TECHNIQUE: Multiple axial CT images of the cervical spine were obtained without contrast. A dose low ering technique was utilized adhering to the principles of ALARA. FINDINGS: Multilevel intervertebral disc space narrowing, moderate to severe at C6-C7. Chondrocalcino sis with moderate multilevel spondylotic spurring with disc osteophyte complex formations. Moderate m ultilevel facet arthrosis. There is severe facet arthrosis in the upper thoracic spine and also C7-T1 . Mild T1 and T2 compression deformities are similar to the recent chest CT. Partially imaged mild velez perior endplate compression at T3 appears new however may be artifactual. No acute cervical spine fra cture or subluxation identified. Multilevel neural foraminal narrowing. The cervical soft tissues appear unremarkable. Atherosclerosis of the carotid bulbs. Intralobular sep lowell thickening of the lung apices. Left subclavian pacer. IMPRESSION: 1. Motion degraded exam without acute cervical spine fracture or subluxation identified. 2. Mild superior endplate compression deformities at T1 and T2 appears chronic. Possible mild superio r endplate compression at T3 which was not seen on the study from 03/10/2025. This is favored to be ar tifactual, however should be correlated with point tenderness to exclude a subtle fracture. ACT 112: Negative or not required by law. The above report was generated using voice recognition software. It may contain grammatical, syntax o r spelling errors. Electronically signed by: Dennis Bazzi M.D. 03/14/2025 2:33 PM
--- NOTE | 2025-03-14 14:34 | CT Scan Report ---
CT SCAN OF THE BRAIN WITHOUT IV CONTRAST CLINICAL HISTORY: Syncopal episode. COMPARISON STUDY: MRI of the brain March 12, 2023. Head CT March 10, 2025. TECHNIQUE: Unenhanced axial CT scan of the brain was performed from the vertex to the skull base. A dose lowering technique was utilized adhering to the principles of ALARA. FINDINGS: Brain parenchyma: No acute intracranial hemorrhage, midline shift or mass effect is present. Leiva-whi te matter differentiation is preserved. There are no extra-axial fluid collections. There are no find ings to suggest acute dural sinus thrombosis or acute territorial infarct. White matter hypodensities are similar to prior exam and favor small vessel disease. A small focus of encephalomalacia within t he posterior left parietal lobe is also unchanged. Ventricles, sulci, cisterns: There is no hydrocephalus. The basal cisterns are patent. Calvarium: Unremarkable. Sinuses and mastoids: The visualized paranasal sinuses are clear. The mastoid air cells are well pneu matized. Orbits: The bony orbits are grossly intact. IMPRESSION: 1. No acute intracranial findings. No change in appearance of the brain. 2. No calvarial fractures. ACT 112: Negative or not required by law. Electronically signed by: Shiva Chow M.D. 03/14/2025 2:32 PM
[2025-03-14 14:37] LABS: INR 1.3 (0.9-1.1); Partial Thromboplastin Time 36 Seconds (21-31); Prothrombin Time 13.5 Seconds (9.0-12.0)
[2025-03-14] MEDS ORDERED: ACETAMINOPHEN 325 MG TAB PO PRN (15:29)
[2025-03-14] MEDS ORDERED: POLYETHYLENE (MIRALAX) 17 GM PACK PO PRN (15:29)
[2025-03-14] MEDS ORDERED: ALUMINUM/MAGNESIUM SUSP 30 ML UDC PO PRN (15:29)
--- NOTE | 2025-03-14 15:40 | History & Physical Report ---
Date of Service March 14, 2025 Assessment & Plan (1) Syncope: Plan Assessment/plan Syncopal episode Ventricular tachycardia History of ischemic cardiomyopathy Patient presented to the hospital with a syncopal episode thought secondary to ventricular tachycardia; Pacemaker interrogation demonstrates probable ventricular tachycardia with an average ventricular rate of 207 bpm, receiving 2 sequences of antitachycardia pacing followed by 35 J shock with post shock rhythm appearing to be atrial fibrillation/flutter with ventricular pacing. Cardiology consult for comanagement; appreciate recommendation. metoprolol frequency increased to twice daily continue on amiodarone Continue to monitor on telemetry Replete electrolytes Community-acquired pneumonia-was discharged on Augmentin and doxycycline which will continue for 2 more days CKD- Creatinine similar to baseline History of prostate cancer S/p radiation treatment completed in August 2024 On Casodex Chronic systolic CHF Echo fron 03/11- Ef of 25-30%; grade III diastolic dysfunction continue on torsemide 50mg once a day; was switch from lasix last admission CAD s/p CABG On Eliquis and Plavix,continue Paroxysmal atrial fibrillation On amiodarone and Eliquis,continue History of sustained ventricular tachycardia status post dual-chamber ICD on 02/14/2019 On amiodarone,continue Peripheral artery disease Unsuccessful antegrade and retrograde attempts made at right tibial intervention On Plavix and Eliquis,continue Hypothyroidism On Synthyroid,continue DVT prophylaxis On Eliquis Disposition Telemetry Full code Time spent evaluating patient, direct bedside care, chart review, placing orders, interpretation of diagnostic studies, discussion with consultants, patient, and family members, as well as other required patient management activities is 75 minutes Please note the above document was generated using voice recognition software. It may contain grammatical, syntax or spelling errors. Any formal questions or concerns about the content, text or information contained within the body of this dictation should be directly addressed to the provider for clarification History of Present Illness Chief Complaint: Syncopal episode Primary Care Provider: Sandra Judge MD History obtained from interview with the patient, chart review and discussion with ED provider Past medical history significant for type 2 diabetes, dyslipidemia, gout, hypothyroidism, obstructive sleep apnea intolerant to CPAP, paroxysmal atrial fibrillation, history of VT, CKD stage III, peripheral artery disease, left vertebral artery stenosis, chronic systolic CHF, status post AICD, protein calorie malnutrition, cirrhosis of liver with ascites, prostate cancer, scrotal swelling, history of CVA, anemia, history of left arm DVT in 2018, atrial septal aneurysm, CAD s/p CABG in 2016 Admitted recently from 03/09 to 03/13 after he had ICD shock. He was admitted to telemetry floor and was diuresed for pulmonary edema. He was discharged home on 03/13 with oral antibiotic for 2 more days and oral torsemide. Patient's amiodarone dose was increased during the hospitalization. Patient had a syncopal episode today while sitting on a chair. He slumped on the chair and hit the floor on the right side of his head. He was brought to the hospital; was given 150 mg of IV amiodarone for ventricular tachycardia. Patient reports chest pain for the last couple of weeks; reports that his breathing is at baseline; denies any chest pain. When seen in the ED, patient is alert oriented x 3. He was normotensive. Chest x-ray showed cardiomegaly with mild pulmonary edema. Patient had CT head and cervical spine which did not show any acute findings. Pacemaker interrogation demonstrates probable ventricular tachycardia with an average ventricular rate of 207 bpm, receiving 2 sequences of antitachycardia pacing followed by 35 J shock with post shock rhythm appearing to be atrial fibrillation/flutter with ventricular pacing. Patient was referred for further monitoring. Allergies Allergy/AdvReac Type Severity Reaction Status Date / Time cefazolin Allergy Intermediate Rash Verified 03/09/25 19:39 ceftriaxone Allergy Intermediate Rash Verified 03/09/25 19:39 lisinopril AdvReac Mild COUGHING Verified 03/09/25 19:39 Home Medications Medication Instructions Recorded Confirmed Type acetaminophen 500 mg tablet 1,000 mg (2 x 500 mg) PO Q8H PRN 09/15/24 03/14/25 Rx (Tylenol Extra Strength) fever or pain #100 tabs apixaban 2.5 mg tablet 2.5 mg PO BID #60 tabs 09/15/24 03/14/25 Rx clopidogrel 75 mg tablet (Plavix) 75 mg PO DAILY #30 tabs 09/15/24 03/14/25 Rx potassium chloride 20 mEq 20 meq PO BID #60 tabs 09/15/24 03/14/25 Rx tablet,extended release(part/cryst) tamsulosin 0.4 mg capsule 0.4 mg PO DAILY #30 caps 09/15/24 03/14/25 Rx amiodarone 200 mg tablet 200 mg PO BID 03/09/25 03/14/25 History bicalutamide 50 mg tablet (Casodex) 50 mg PO DAILY 03/09/25 03/14/25 History capsaicin 0.1 % topical cream 1 applic topical BID 03/09/25 03/14/25 History cholecalciferol (vitamin D3) 25 50 mcg PO DAILY 03/09/25 03/14/25 History mcg (1,000 unit) capsule (Vitamin D3) ferrous sulfate 325 mg (65 mg 325 mg PO DAILY 03/09/25 03/14/25 History iron) tablet (iron) fish, borage, flaxseed oils-omega 1 cap PO QAM 03/09/25 03/14/25 History 3,6,9 comb no.1 1,200 mg capsule ([place] 3-6-9) levothyroxine 112 mcg tablet 112 mcg PO DAILYBB 03/09/25 03/14/25 History multivitamin 1 tab PO DAILY 03/09/25 03/14/25 History nitroglycerin 0.4 mg sublingual 0.4 mg sublingual DIRECTED PRN 03/09/25 03/14/25 History tablet (Nitrostat) Chest Pain nystatin 100,000 unit/gram topical 1 applic topical BID PRN NEEDED 03/09/25 03/14/25 History powder (Nystop) ondansetron 8 mg disintegrating 8 mg translingual Q8H PRN 03/09/25 03/14/25 History tablet NAUSEA/VOMITING amoxicillin 500 mg-potassium 1 tab PO BIDM 2 days #4 tabs 03/13/25 03/14/25 Rx clavulanate 125 mg tablet doxycycline hyclate 100 mg capsule 100 mg PO BID@1000,2100 2 days #4 03/13/25 03/14/25 Rx caps metoprolol succinate 25 mg 12.5 mg (1/2 x 25 mg) PO QAM #30 03/13/25 03/14/25 Rx tablet,extended release 24 hr tabs torsemide 10 mg tablet 50 mg (5 x 10 mg) PO QAM #30 tabs 03/13/25 03/14/25 Rx Past Med/Surg History Problem List (Updated 03/14/25 @ 15:54 by Luiz Pina) Recurrent ventricular tachycardia Syncope Atrial fibrillation and flutter (Acute) ICD (implantable cardioverter-defibrillator) discharge (Acute) ICD (implantable cardioverter-defibrillator) in place History of bacteremia Arrhythmia Allergic drug rash due to anti-infective agent Wound of left foot Acute on chronic systolic congestive heart failure (Acute) Demand ischemia Streptococcal bacteremia Severe sepsis with acute organ dysfunction Diarrhea Thrombocytopenia Acute systolic heart failure Ascites Hyperkalemia Elevated troponin level Elevated liver function tests Hepatopathy Acute lactic acidosis Pulmonary edema (Acute) Sepsis (Acute) Elevated brain natriuretic peptide (BNP) level (Acute) Non-ST elevation LA (NSTEMI) (Acute) Acute exacerbation of CHF (congestive heart failure) (Acute) Acute hypoxemic respiratory failure (Acute) Acute dyspnea (Acute) Prostate cancer (Chronic 05/02/24) Rectal bleeding Elevated lactic acid level (Acute) Aspiration pneumonia of left lower lobe (Acute) Small bowel obstruction (Acute) Incarcerated umbilical hernia (Acute) Small bowel obstruction Incarcerated umbilical hernia Elevated prostate specific antigen (PSA) Hypomagnesemia (Acute) VENITA (acute kidney injury) (Acute) Stroke-like symptoms (Acute) Transient vision disturbance of both eyes Peripheral arterial disease Urinary symptom or sign Ventricular tachycardia (Acute) Defibrillator discharge (Acute) History of left shoulder replacement (Chronic) History of inguinal hernia repair (Chronic) "1954" H/O lithotripsy (Chronic) History of right shoulder replacement (Chronic) "2009" History of total right knee replacement (Chronic) "2004 " 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" Chronic anticoagulation (Chronic) 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) Gout (Chronic) Atrial septal aneurysm (Chronic) PFO (patent foramen ovale) (Chronic) BHUPINDER (obstructive sleep apnea) (Chronic) "not on CPAP" DM type 2 (diabetes mellitus, type 2) (Chronic) Dyslipidemia (Chronic) HTN (hypertension) (Chronic) Mitral regurgitation (Chronic) History of cardioembolic stroke (Chronic) Paroxysmal atrial fibrillation (Chronic) "postoperative" Ischemic cardiomyopathy (Chronic) "prior EF 35-40% in August 2008; improved EF 50-54% on 11/24/16 echo" Medical History Streptococcemia Acute kidney injury superimposed on stage 3b chronic kidney disease History of aspiration pneumonia admitted to [facility] 04/2024 Ischemic cardiomyopathy "prior EF 35-40% in August 2008; improved EF 50-54% on 11/24/16 echo" Paroxysmal atrial fibrillation hx--"postoperative" History of cardioembolic stroke ~2016, 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 Mitral regurgitation follows w/ Dr Hyde HTN (hypertension) Dyslipidemia Diabetes mellitus no meds currently BHUPINDER (obstructive sleep apnea) no device PFO (patent foramen ovale) Atrial septal defect Gout Diabetic neuropathy Chronic anticoagulation Hx of renal calculi Hx of ventricular tachycardia Transient vision disturbance of both eyes Peripheral artery disease Rectal bleeding Bowel obstruction (04/2024) recent admission to [facility] DJD of left shoulder Surgical History 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" History of total right knee replacement (2004) History of lithotripsy Hx of inguinal hernia repair (1954) Hx of colonoscopy History of right shoulder replacement (2009) History of left shoulder replacement AICD present, double chamber [employer], implanted 2018 Family History Brother V-tach required AICD Social History Smoking Status: Never smoker Second Hand Exposure: No; Do You Dip or Chew Tobacco: No; Hx Alcohol Use: No Hx Substance Use: No Preferred Language: Kinyarwanda Communication Ability: Effective Visual Impairment: No Limitations Hearing Ability: Normal Meeting Specialist Required: No Beliefs That Will Affect Care: None marital status: Single Current Living Situation: Alone Current Living Situation Comment: home alone, daughter lives 12 miles away current occupational status: retired Feels Safe at Home: Yes Safety Concerns: Feels Safe At This Time Diet: regular during the past year weight has: decreased > 10 lbs Assistive Devices: Walker Physical Exam Physical Exam: On physical exam; Constitutional: Awake alert oriented x 3; not in distress. Respiratory: Bilateral basal crackles present Cardiovascular: Irregular, no murmur, no edema Vessels: no JVD or carotid bruit Chest: normal inspection of chest Abdomen: normal bowel sounds, soft, nontender, no hepatosplenomegaly Musculoskeletal: Chronic bilateral skin changes in lower extremity. Neurologic: PERRL, EOMI, accommodation nl, no face palsy, no dysarthria CN's II- XI intact bilaterally and moves all extremities Psychiatric: A+Ox3, euthymic affect Results & Data Results & Data Vital Signs (Past 12 Hours) Vital Signs Temp Pulse Pulse Resp BP BP Pulse Ox 03/14/25 15:00 91 H 18 115/78 97 03/14/25 14:02 76 17 102/75 96 03/14/25 13:58 71 03/14/25 13:58 72 21 111/77 03/14/25 13:58 03/14/25 13:58 72 21 111/77 03/14/25 13:36 76 03/14/25 13:18 36.9 C 77 18 111/77 93 O2 Del Method 03/14/25 15:00 Room Air 03/14/25 14:02 Room Air 03/14/25 13:58 Room Air 03/14/25 13:58 Room Air 03/14/25 13:58 Room Air 03/14/25 13:58 Room Air 03/14/25 13:36 03/14/25 13:18 Room Air Code Status & VTE Plan VTE Prophylaxis Plan VTE Prophylaxis will be ordered: Yes
[2025-03-14] MEDS ORDERED: NITROGLYCERIN SL 0.4 MG/TAB TAB SL PRN (16:14)
[2025-03-14] MEDS: POTASSIUM CHLORIDE CRTAB 20 MEQ TABCR PO STA (17:01)
[2025-03-14] MEDS: AMOXICILLIN/CLAVULANATE 500 MG TAB PO SCH (17:01)
[2025-03-14] MEDS ORDERED: DEXTROSE 50% 50 ML SYRINGE IV PRN (20:05)
[2025-03-14] MEDS ORDERED: GLUCOSE 10 TAB/TUBE PO PRN (20:05)
[2025-03-14] MEDS ORDERED: GLUCOSE 40% GEL 15 GM TUBE PO PRN (20:05)
[2025-03-14] MEDS ORDERED: CARBOHYDRATES FOR HYPOGLYCEMIA PO PRN (20:05)
[2025-03-14] MEDS ORDERED: GLUCAGON FOR INJ 1 MG VIAL SQ PRN (20:05)
[2025-03-14] MEDS: METOPROLOL SUCC 25MG EXT REL TAB PO SCH (20:49)
[2025-03-14] MEDS: AMIODARONE 200 MG TAB PO SCH (20:50)
[2025-03-14] MEDS: APIXABAN 2.5 MG TAB PO SCH (20:51)
[2025-03-14] MEDS: DOXYCYCLINE HYCLATE 100 MG CAP PO SCH (20:51)
[2025-03-14] MEDS: CAPSAICIN CR 0.075% 60 GM TUBE EXT SCH (20:51)
[2025-03-14] MEDS: INSULIN ASPART PER UNIT CHARGE SC SCH (20:54)
[2025-03-14 21:59] LABS: Appearance Urine Clear (Clear); Bacteria Urine Automated None Seen (None Seen); Cast Urine Automated >20 /lpf (0-2); Epithelial Cell Urine Auto 0-2 /hpf (0-2); Glucose Urine UA Negative (Negative); RBC Urine Automated 0-2 /hpf (0-2); WBC Urine Automated 0-5 /hpf (0-5)
[2025-03-14] MEDS ORDERED: HEPARIN SOD 5,000 UNIT/0.5 ML VIAL SQ SCH (22:00)
[2025-03-15] MEDS: LEVOTHYROXINE SODIUM 112 MCG TABLET PO SCH (05:58)
[2025-03-15 06:22] LABS: Hematocrit (blood only) 25.4 % (42.0-52.0); Hemoglobin 8.3 g/dl (14.0-18.0); Immature Granulocytes # (auto) 0.02 K/uL (0.01-0.20); Immature Granulocytes % (auto) 0.4 %; Mean Corpuscular Hemoglobin 30.3 pg (25.0-34.0); Mean Corpuscular Volume 92.7 fL (80.0-100.0); Platelet Count 116 K/uL (130-400); RDW Standard Deviation 64.9 fL (36.4-46.3); Red Blood Count 2.74 M/uL (4.70-6.10); White Blood Count 5.35 K/ul (4.8-10.8)
[2025-03-15 06:38] LABS: Anion Gap 11.0 (3-11); Blood Urea Nitrogen 56.0 mg/dl (6-23); Calcium 8.9 mg/dl (8.6-10.3); Carbon Dioxide 24.0 mmol/L (21-32); Chloride 105.0 mmol/L (98-107); Creatinine Clr Calc Pharmacy 19.1 ml/min; Glucose 180.0 mg/dl (70-99(Fasting)); Magnesium 2.0 mg/dl (1.7-2.4); Potassium 3.8 mmol/L (3.5-5.1); Sodium 140.0 mmol/L (136-145)
[2025-03-15] MEDS ORDERED: METOPROLOL SUCC 25MG EXT REL TAB PO SCH (09:00)
[2025-03-15] MEDS: BICALUTAMIDE 50 MG TAB PO SCH (09:20)
[2025-03-15] MEDS: OMEGA-3 (PURIFIED FISH OIL) 1 GM CAP PO SCH (09:21)
[2025-03-15] MEDS: TORSEMIDE 10 MG TAB PO SCH (09:22)
[2025-03-15] MEDS: MULTIVITAMIN TAB PO SCH (09:22)
[2025-03-15] MEDS: CHOLECALCIFEROL 25 MCG (1000 UNITS) TAB PO SCH (09:22)
[2025-03-15] MEDS: CLOPIDOGREL BISULFATE 75 MG TAB PO SCH (09:23)
[2025-03-15] MEDS: POTASSIUM CHLORIDE CRTAB 20 MEQ TABCR PO SCH (09:24)
[2025-03-15] MEDS: TAMSULOSIN HCL 0.4 MG CAP PO SCH (09:24)
[2025-03-15] MEDS: FERROUS SULFATE 325 MG TAB PO SCH (13:03)
--- NOTE | 2025-03-15 13:56 | Cardiology Progress Note ---
Date of Service March 15, 2025 Assessment & Plan (1) Cardiomyopathy: Plan 84 yo man presenting with Dyspnea + weakness + Atypical Chest Pain Dx: Acute on chronic combined CHF + recurrent VT s/p ICD Shock 03-07-2025 * Ischemic Cardiomyopathy * LVEF 25% * Continue Torsemide 50 mg/day this admission * Will need close metabolic panel follow-up, possibly increased oral potassium supplementation * Continue Toprol XL 12.5 mg/day * + Afib * AST, ALT, and Alk Phos within normal range * TSH 3.99 * Continue apixaban 2.5 mg po BID * Continue Plavix 75 mg po per day * Creat > 2 - * No MRA * Marginal SBP * No ARNI * K+ goal 4.5-5 * Kdur 20 meq x 1 * Mag goal >2 * No Jardiance - groin candidiasis * + VT * Amiodarone increased to 200 mg BID * Medtronic device to be interrogated * QRS >200 ms * May need device upgrade +/- VT ablation * Check lactate * General measures advised for the musculoskeletal chest discomfort * Mobilize * 51 min spent addressing challenges. educating and advancing daily plan of care Magdi Garcia Admission and Anticipated Discharge Date Admission Date: March 14, 2025 Subjective Events Overnight: * none * Telemetry - afib, V paced@ 70 BPM Subjective: * Mild dyspnea Review of Systems Review of Systems: All systems reviewed & are unremarkable except as noted in HPI & below Physical Exam Physical Exam: JVP just below jawline S1S22/6 HSM at [place] CTA B No C/C/E [place] Results & Data Vital Signs (Past 12 Hours) Vital Signs Temp Pulse Pulse Resp BP Pulse Ox O2 Del Method 03/15/25 11:20 36.6 C 72 19 100/64 93 Room Air 03/15/25 08:00 70 03/15/25 07:22 36.5 C 72 18 107/67 94 Room Air 03/15/25 02:55 36.9 C 70 18 110/74 95 Room Air Laboratory Results Cardiac Enzymes 03/14/25 03/14/25 Range/Units 13:20 16:54 AST 15 (13-39) U/L Troponin I High Sens 21.7 H 24.8 H (0-20) pg/ml Coagulation 03/14/25 Range/Units 13:20 PT 13.5 H (9.0-12.0) Seconds APTT 36 H (21-31) Seconds CBC 03/15/25 Range/Units 05:41 WBC 5.35 (4.8-10.8) K/ul RBC 2.74 L (4.70-6.10) M/uL Hgb 8.3 L (14.0-18.0) g/dl Hct 25.4 L (42.0-52.0) % Plt Count 116 L (130-400) K/uL Neut # (Auto) 3.84 (1.40-6.50) K/uL Lymph # (Auto) 0.82 L (1.20-3.40) K/uL [place] # (Auto) 0.38 (0.11-0.59) K/uL Eos # (Auto) 0.25 (0.00-0.50) K/uL Baso # (Auto) 0.04 (0.00-0.20) K/uL Comprehensive Metabolic Panel 03/14/25 03/15/25 Range/Units 13:20 05:41 Sodium 140 140 (136-145) mmol/L Potassium 3.5 3.8 (3.5-5.1) mmol/L Chloride 101 105 (98-107) mmol/L Carbon Dioxide 26 24 (21-32) mmol/L BUN 52 H 56 H (6-23) mg/dl Creatinine 2.84 H 2.98 H (0.6-1.4) mg/dl Glucose 187 H 180 H (70-99(Fasting)) mg/dl Calcium 9.2 8.9 (8.6-10.3) mg/dl AST 15 (13-39) U/L ALT 10 (7-52) U/L Alkaline Phosphatase 80 (34-104) U/L Total Protein 6.7 (6.0-8.3) gm/dl Albumin 3.7 (3.4-5.0) gm/dl Intake and Output 03/14/25 03/15/25 03/15/25 22:59 06:59 14:59 Intake Total 300 / 300 Output Total 400 / 400 Balance -400 / -100 300 / -100 Intake: Oral 300 / 300 Output: Urine 400 / 400 Other: # Unmeasured Voids 1 Weight 80.195 kg 80.2 kg Weight Measurement Method Built in [facility] Built in [facility] Medications Administered Current Inpatient Medications Acetaminophen (Acetaminophen 325 Mg Tab) 650 mg PO Q4H PRN PRN Reason: Pain or Fever Stop: 04/13/25 15:28 Al Hydrox/Mg Hydrox/Simethicone (Aluminum/Magnesium Susp 30 Ml Udc) 15 ml PO Q4H PRN PRN Reason: Dyspepsia Stop: 04/13/25 15:28 Amiodarone HCl (Amiodarone 200 Mg Tab) 200 mg PO BID [facility] Stop: 04/13/25 20:59 Last Admin: 03/15/25 09:20 Dose: 200 mg Amoxicillin/Clavulanate Potassium (Amoxicillin/Clavulanate 500 Mg Tab) 1 tab PO BIDM [facility]; Protocol Stop: 03/16/25 16:59 Last Admin: 03/15/25 09:23 Dose: 1 tab Apixaban (Apixaban 2.5 Mg Tab) 2.5 mg PO BID [facility] Stop: 04/13/25 20:59 Last Admin: 03/15/25 09:23 Dose: 2.5 mg Bicalutamide (Bicalutamide 50 Mg Tab) 50 mg PO DAILY [facility] Stop: 04/14/25 08:59 Last Admin: 03/15/25 09:20 Dose: 50 mg Capsaicin (Capsaicin Cr 0.075% 60 Gm Tube) 1 appln EXT BID [facility] Stop: 04/13/25 20:59 Last Admin: 03/15/25 09:24 Dose: 1 appln Clopidogrel Bisulfate (Clopidogrel Bisulfate 75 Mg Tab) 75 mg PO DAILY [facility] Stop: 04/14/25 08:59 Last Admin: 03/15/25 09:23 Dose: 75 mg Dextrose (Dextrose 50% 50 Ml Syringe) 25 - 50 ml IV UD PRN; Protocol PRN Reason: Hypoglycemia Protocol Stop: 04/13/25 20:04 Doxycycline Hyclate (Doxycycline Hyclate 100 Mg Cap) 100 mg PO BID@1000,2100 [facility] Stop: 03/16/25 20:59 Last Admin: 03/15/25 09:22 Dose: 100 mg Ferrous Sulfate (Ferrous Sulfate 325 Mg Tab) 325 mg PO DAILY@1200 [facility] Stop: 04/14/25 11:59 Last Admin: 03/15/25 13:03 Dose: 325 mg Fish Oil ([place]-3 (Purified Fish Oil) 1 Gm Cap) 1 cap PO QAM [facility] Stop: 04/14/25 08:59 Last Admin: 03/15/25 09:21 Dose: 1 cap Glucagon (Glucagon For Inj 1 Mg Vial) 1 mg SQ UD PRN; Protocol PRN Reason: Hypoglycemia Protocol Stop: 04/13/25 20:04 Glucose (Glucose 40% Gel 15 Gm Tube) 15 - 30 gm PO UD PRN; Protocol PRN Reason: Hypoglycemia Protocol Stop: 04/13/25 20:04 Glucose (Glucose 10 Tab/Tube) 4 - 8 tab PO UD PRN; Protocol PRN Reason: Hypoglycemia Protocol Stop: 04/13/25 20:04 Insulin Aspart (Insulin Aspart Per Unit Charge) 0 units SC ACHS [facility] Stop: 04/13/25 20:59 Last Admin: 03/15/25 11:51 Dose: Not Given Levothyroxine Sodium (Levothyroxine Sodium 112 Mcg Tablet) 112 mcg PO DAILYBB [facility] Stop: 04/14/25 06:29 Last Admin: 03/15/25 05:58 Dose: 112 mcg Metoprolol Succinate (Metoprolol Succ 25mg Ext Rel Tab) 12.5 mg PO BID [facility] Stop: 04/13/25 20:59 Last Admin: 03/15/25 09:20 Dose: 12.5 mg Miscellaneous (Carbohydrates For Hypoglycemia ) 15 - 30 gm PO UD PRN PRN Reason: Hypoglycemia Protocol Stop: 04/13/25 20:04 Multivitamins (Multivitamin Tab) 1 tab PO DAILY [facility] Stop: 04/14/25 08:59 Last Admin: 03/15/25 09:22 Dose: 1 tab Nitroglycerin (Nitroglycerin Sl 0.4 Mg/Tab Tab) 0.4 mg SL Q5M PRN PRN Reason: Chest Pain Stop: 04/13/25 16:13 Polyethylene Glycol (Polyethylene (Miralax) 17 Gm Pack) 17 gm PO DAILY PRN PRN Reason: Constipation Stop: 04/13/25 15:28 Potassium Chloride (Potassium Chloride Crtab 20 Meq Tabcr) 20 meq PO DAILY [facility] Stop: 04/14/25 08:59 Last Admin: 03/15/25 09:24 Dose: 20 meq Tamsulosin HCl (Tamsulosin Hcl 0.4 Mg Cap) 0.4 mg PO DAILY [facility] Stop: 04/14/25 08:59 Last Admin: 03/15/25 09:24 Dose: 0.4 mg Torsemide (Torsemide 10 Mg Tab) 50 mg PO QAM [facility] Stop: 04/14/25 08:59 Last Admin: 03/15/25 09:22 Dose: 50 mg Vitamin D (Cholecalciferol 25 Mcg (1000 Units) Tab) 50 mcg PO DAILY [facility] Stop: 04/14/25 08:59 Last Admin: 03/15/25 09:22 Dose: 50 mcg PG Care Time/CCT Total # of Minutes Spent Total Time Spent with Patient: Total time spent is greater than 50% in coordination of care (as documented) at patient's floor/unit and/or counseling patient: Coding Level of Care Code 88690 SUB INP/OBS CARE 3/50MIN Diagnoses Cardiomyopathy I42.9
--- NOTE | 2025-03-15 14:52 | Hospitalist Progress Note ---
Date of Service March 15, 2025 Assessment & Plan (1) Syncope, cardiogenic: (2) Recurrent ventricular tachycardia: (3) ICD (implantable cardioverter-defibrillator) discharge: (4) Chronic heart failure with reduced ejection fraction (HFrEF, <= 40%): (5) Chronic renal failure (CRF), stage 4 (severe): Plan Patient presents with cardiogenic syncope due to recurrent ventricular tachycardia aborted by the discharging of his AICD. No further events while on telemetry monitoring here in the hospital Further recommendations pending cardiology/electrophysiology Continue monitor electrolytes Admission and Anticipated Discharge Date Admission Date: March 14, 2025 Subjective No further syncopal events. Patient feels well. Tolerating his diet. He cannot sense when he is shocked by his AICD. Physical Exam Physical Exam: Constitutional: Alert HEENT: Mucous membranes moist. Lungs: Clear to auscultation, decreased, no wheezes rales or rhonchi CV: S1-S2, regular, systolic murmur Abdomen: Soft, nontender, nondistended Extremities: No significant edema Neuro: No focal deficits Psych: Cooperative, normal mood Results & Data Results & Data Vital Signs (Past 12 Hours) Vital Signs Temp Pulse Pulse Resp BP Pulse Ox O2 Del Method 03/15/25 14:15 70 03/15/25 11:20 36.6 C 72 19 100/64 93 Room Air 03/15/25 08:00 70 03/15/25 07:22 36.5 C 72 18 107/67 94 Room Air 03/15/25 02:55 36.9 C 70 18 110/74 95 Room Air Diagnostic Findings Reviewed imaging, laboratory and diagnostic studies. Pertinent findings as below. Hemoglobin 8.3, Baseline Creatinine 2.98, baseline Potassium 3.8
[2025-03-15] MEDS: POTASSIUM CHLORIDE CRTAB 20 MEQ TABCR PO ONE ×2 (15:41)
[2025-03-16 07:19] LABS: Anion Gap 9.0 (3-11); Blood Urea Nitrogen 55.0 mg/dl (6-23); Calcium 8.9 mg/dl (8.6-10.3); Carbon Dioxide 27.0 mmol/L (21-32); Chloride 104.0 mmol/L (98-107); Creatinine Clr Calc Pharmacy 19.1 ml/min; Glucose 153.0 mg/dl (70-99(Fasting)); Magnesium 2.0 mg/dl (1.7-2.4); Potassium 4.0 mmol/L (3.5-5.1); Sodium 140.0 mmol/L (136-145)
--- NOTE | 2025-03-16 07:55 | Cardiology Progress Note ---
Date of Service March 16, 2025 Assessment & Plan (1) Cardiomyopathy: Plan 84 yo man presenting with Dyspnea + weakness + Atypical Chest Pain Dx: Acute on chronic combined CHF + recurrent VT s/p ICD Shock 03-07-2025 * Ischemic Cardiomyopathy * LVEF 25% * Continue Torsemide 50 mg/day this admission * Will need close metabolic panel follow-up, possibly increased oral potassium supplementation * Continue Toprol XL 12.5 mg/day * + Afib * AST, ALT, and Alk Phos within normal range * TSH 3.99 * Continue apixaban 2.5 mg po BID * Continue Plavix 75 mg po per day * Creat > 2 - * No MRA * Marginal SBP * No ARNI * K+ goal 4.5-5 * Kdur 20 meq x 1 * Mag goal >2 * No Jardiance - groin candidiasis * Marginally volume overloaded * Continue Torsemide 50 mg po per day * + VT * Amiodarone continue - 200 mg BID * Medtronic device interrogated - lowered activation HR/made response to VT more aggressive * QRS >200 ms * May need device upgrade +/- VT ablation - setting patient up with EP to evaluate pacing strategy; Device battery has about 17 month of life * LA - 4.5 cm - ? Afib ablation * Lactate - 1.5 * General measures advised for the musculoskeletal chest discomfort * Mobilize * Follow up with [facility] - 05/22/2025 in [place] * 51 min spent addressing challenges. educating and advancing daily plan of care * Please call with any additional questions Magdi Garcia Admission and Anticipated Discharge Date Admission Date: March 14, 2025 Subjective Events Overnight: * ICD interrogated * Telemetry - no VT, V paced Subjective: * no complaints Review of Systems Review of Systems: All systems reviewed & are unremarkable except as noted in HPI & below Physical Exam Physical Exam: JVP just below jawline S1S22/6 HSM at [place] CTA B No C/C/E [place] Results & Data Vital Signs (Past 12 Hours) Vital Signs Temp Pulse Pulse Resp BP Pulse Ox O2 Del Method 03/16/25 07:12 36.7 C 68 19 107/67 93 Room Air 03/16/25 03:16 36.8 C 70 16 102/66 97 Room Air 03/15/25 22:51 36.6 C 92 H 17 101/69 99 Room Air 03/15/25 22:00 70 Laboratory Results Comprehensive Metabolic Panel 03/16/25 Range/Units 06:22 Sodium 140 (136-145) mmol/L Potassium 4.0 (3.5-5.1) mmol/L Chloride 104 (98-107) mmol/L Carbon Dioxide 27 (21-32) mmol/L BUN 55 H (6-23) mg/dl Creatinine 2.98 H (0.6-1.4) mg/dl Glucose 153 H (70-99(Fasting)) mg/dl Calcium 8.9 (8.6-10.3) mg/dl Intake and Output 03/15/25 03/16/25 03/16/25 22:59 06:59 14:59 Other: # Unmeasured Voids 1 Weight 80.4 kg Weight Measurement Method Built in [facility] Medications Administered Current Inpatient Medications Acetaminophen (Acetaminophen 325 Mg Tab) 650 mg PO Q4H PRN PRN Reason: Pain or Fever Stop: 04/13/25 15:28 Al Hydrox/Mg Hydrox/Simethicone (Aluminum/Magnesium Susp 30 Ml Udc) 15 ml PO Q4H PRN PRN Reason: Dyspepsia Stop: 04/13/25 15:28 Amiodarone HCl (Amiodarone 200 Mg Tab) 200 mg PO BID [facility] Stop: 04/13/25 20:59 Last Admin: 03/15/25 22:26 Dose: 200 mg Amoxicillin/Clavulanate Potassium (Amoxicillin/Clavulanate 500 Mg Tab) 1 tab PO BIDM [facility]; Protocol Stop: 03/16/25 16:59 Last Admin: 03/15/25 17:08 Dose: 1 tab Apixaban (Apixaban 2.5 Mg Tab) 2.5 mg PO BID [facility] Stop: 04/13/25 20:59 Last Admin: 03/15/25 22:26 Dose: 2.5 mg Bicalutamide (Bicalutamide 50 Mg Tab) 50 mg PO DAILY [facility] Stop: 04/14/25 08:59 Last Admin: 03/15/25 09:20 Dose: 50 mg Capsaicin (Capsaicin Cr 0.075% 60 Gm Tube) 1 appln EXT BID [facility] Stop: 04/13/25 20:59 Last Admin: 03/15/25 22:21 Dose: Not Given Clopidogrel Bisulfate (Clopidogrel Bisulfate 75 Mg Tab) 75 mg PO DAILY [facility] Stop: 04/14/25 08:59 Last Admin: 03/15/25 09:23 Dose: 75 mg Dextrose (Dextrose 50% 50 Ml Syringe) 25 - 50 ml IV UD PRN; Protocol PRN Reason: Hypoglycemia Protocol Stop: 04/13/25 20:04 Doxycycline Hyclate (Doxycycline Hyclate 100 Mg Cap) 100 mg PO BID@1000,2100 [facility] Stop: 03/16/25 20:59 Last Admin: 03/15/25 22:26 Dose: 100 mg Ferrous Sulfate (Ferrous Sulfate 325 Mg Tab) 325 mg PO DAILY@1200 [facility] Stop: 04/14/25 11:59 Last Admin: 03/15/25 13:03 Dose: 325 mg Fish Oil ([place]-3 (Purified Fish Oil) 1 Gm Cap) 1 cap PO QAM [facility] Stop: 04/14/25 08:59 Last Admin: 03/15/25 09:21 Dose: 1 cap Glucagon (Glucagon For Inj 1 Mg Vial) 1 mg SQ UD PRN; Protocol PRN Reason: Hypoglycemia Protocol Stop: 04/13/25 20:04 Glucose (Glucose 40% Gel 15 Gm Tube) 15 - 30 gm PO UD PRN; Protocol PRN Reason: Hypoglycemia Protocol Stop: 04/13/25 20:04 Glucose (Glucose 10 Tab/Tube) 4 - 8 tab PO UD PRN; Protocol PRN Reason: Hypoglycemia Protocol Stop: 04/13/25 20:04 Insulin Aspart (Insulin Aspart Per Unit Charge) 0 units SC ACHS [facility] Stop: 04/13/25 20:59 Last Admin: 03/15/25 22:00 Dose: Not Given Levothyroxine Sodium (Levothyroxine Sodium 112 Mcg Tablet) 112 mcg PO DAILYBB [facility] Stop: 04/14/25 06:29 Last Admin: 03/16/25 07:23 Dose: 112 mcg Metoprolol Succinate (Metoprolol Succ 25mg Ext Rel Tab) 12.5 mg PO BID [facility] Stop: 04/13/25 20:59 Last Admin: 03/15/25 22:21 Dose: Not Given Miscellaneous (Carbohydrates For Hypoglycemia ) 15 - 30 gm PO UD PRN PRN Reason: Hypoglycemia Protocol Stop: 04/13/25 20:04 Multivitamins (Multivitamin Tab) 1 tab PO DAILY [facility] Stop: 04/14/25 08:59 Last Admin: 03/15/25 09:22 Dose: 1 tab Nitroglycerin (Nitroglycerin Sl 0.4 Mg/Tab Tab) 0.4 mg SL Q5M PRN PRN Reason: Chest Pain Stop: 04/13/25 16:13 Polyethylene Glycol (Polyethylene (Miralax) 17 Gm Pack) 17 gm PO DAILY PRN PRN Reason: Constipation Stop: 04/13/25 15:28 Potassium Chloride (Potassium Chloride Crtab 20 Meq Tabcr) 20 meq PO DAILY [facility] Stop: 04/14/25 08:59 Last Admin: 03/15/25 09:24 Dose: 20 meq Tamsulosin HCl (Tamsulosin Hcl 0.4 Mg Cap) 0.4 mg PO DAILY [facility] Stop: 04/14/25 08:59 Last Admin: 03/15/25 09:24 Dose: 0.4 mg Torsemide (Torsemide 10 Mg Tab) 50 mg PO QAM [facility] Stop: 04/14/25 08:59 Last Admin: 03/15/25 09:22 Dose: 50 mg Vitamin D (Cholecalciferol 25 Mcg (1000 Units) Tab) 50 mcg PO DAILY [facility] Stop: 04/14/25 08:59 Last Admin: 03/15/25 09:22 Dose: 50 mcg PG Care Time/CCT Total # of Minutes Spent Total Time Spent with Patient: Total time spent is greater than 50% in coordination of care (as documented) at patient's floor/unit and/or counseling patient: Coding Level of Care Code 36361 SUB INP/OBS CARE 3/50MIN Diagnoses Cardiomyopathy I42.9
[2025-03-16 11:15] VITALS: RESP 18; O2SAT 96
[2025-03-16 15:21] VITALS: BP 109/69; PULSE 69; TEMP 98.1
--- NOTE | 2025-03-16 15:30 | Discharge Summary ---
Discharge Summary Date of Service March 16, 2025 Principal Dx & Hospital Course #1 = Principal Diagnosis (1) Syncope, cardiogenic: (2) Recurrent ventricular tachycardia: (3) ICD (implantable cardioverter-defibrillator) discharge: (4) Chronic heart failure with reduced ejection fraction (HFrEF, <= 40%): (5) Chronic renal failure (CRF), stage 4 (severe): Plan Patient is 84-year-old gentleman with known reduced ejection fraction and recurrent ventricular tachycardia with AICD in place presented to the emergency room after syncopal event. In the emergency department was determined that patient had a run of V. tach and actually had a ICD discharge. Patient was admitted for further evaluation. Patient was cared for in the hospital and monitored setting. There was no episodes of recurrent V. tach. Cardiology consultation was obtained. They reviewed the patient's history and recommended he continue on his current medications. After evaluating his AICD was recommended that his device settings the adjusted. The AICD was adjusted to lower the activation heart rate to become more responsive to any type of ventricular tachycardia. On the day of discharge patient's vital signs are stable. He is tolerating his diet. He was overall was feeling well. Instructed to continue his other medications. He will follow-up with his outpatient cardiology. May determine if he needs any upgrade of his device or further electrophysiological interventions such as ablation for the ventricular tachycardia. Notes For Next Care Provider Medication Changes From Visit None Admission HPI Per Admitting Provider History obtained from interview with the patient, chart review and discussion with ED provider Past medical history significant for type 2 diabetes, dyslipidemia, gout, hypothyroidism, obstructive sleep apnea intolerant to CPAP, paroxysmal atrial fibrillation, history of VT, CKD stage III, peripheral artery disease, left vertebral artery stenosis, chronic systolic CHF, status post AICD, protein calorie malnutrition, cirrhosis of liver with ascites, prostate cancer, scrotal swelling, history of CVA, anemia, history of left arm DVT in 2018, atrial septal aneurysm, CAD s/p CABG in 2016 Admitted recently from 03/09 to 03/13 after he had ICD shock. He was admitted to telemetry floor and was diuresed for pulmonary edema. He was discharged home on 03/13 with oral antibiotic for 2 more days and oral torsemide. Patient's amiodarone dose was increased during the hospitalization. Patient had a syncopal episode today while sitting on a chair. He slumped on the chair and hit the floor on the right side of his head. He was brought to the hospital; was given 150 mg of IV amiodarone for ventricular tachycardia. Patient reports chest pain for the last couple of weeks; reports that his breathing is at baseline; denies any chest pain. When seen in the ED, patient is alert oriented x 3. He was normotensive. Chest x-ray showed cardiomegaly with mild pulmonary edema. Patient had CT head and cervical spine which did not show any acute findings. Pacemaker interrogation demonstrates probable ventricular tachycardia with an average ventricular rate of 207 bpm, receiving 2 sequences of antitachycardia pacing followed by 35 J shock with post shock rhythm appearing to be atrial fibrillation/flutter with ventricular pacing. Patient was referred for further monitoring. Admission Exam Per Admitting Provider See H&P Discharge Exam Constitutional: Alert HEENT: Mucous membranes moist. Lungs: Clear to auscultation, decreased, no wheezes rales or rhonchi CV: S1-S2, regular, systolic murmur Abdomen: Soft, nontender, nondistended Extremities: No significant edema Neuro: No focal deficits Psych: Cooperative, normal mood Updated Medication List Medication Instructions Recorded Confirmed Type acetaminophen 500 mg tablet 1,000 mg (2 x 500 mg) PO Q8H PRN 09/15/24 03/14/25 Rx (Tylenol Extra Strength) fever or pain #100 tabs apixaban 2.5 mg tablet 2.5 mg PO BID #60 tabs 09/15/24 03/14/25 Rx clopidogrel 75 mg tablet (Plavix) 75 mg PO DAILY #30 tabs 09/15/24 03/14/25 Rx potassium chloride 20 mEq 20 meq PO BID #60 tabs 09/15/24 03/14/25 Rx tablet,extended release(part/cryst) tamsulosin 0.4 mg capsule 0.4 mg PO DAILY #30 caps 09/15/24 03/14/25 Rx amiodarone 200 mg tablet 200 mg PO BID 03/09/25 03/14/25 History bicalutamide 50 mg tablet (Casodex) 50 mg PO DAILY 03/09/25 03/14/25 History capsaicin 0.1 % topical cream 1 applic topical BID 03/09/25 03/14/25 History cholecalciferol (vitamin D3) 25 50 mcg PO DAILY 03/09/25 03/14/25 History mcg (1,000 unit) capsule (Vitamin D3) ferrous sulfate 325 mg (65 mg 325 mg PO DAILY 03/09/25 03/14/25 History iron) tablet (iron) fish, borage, flaxseed oils-omega 1 cap PO QAM 03/09/25 03/14/25 History 3,6,9 comb no.1 1,200 mg capsule ([place] 3-6-9) levothyroxine 112 mcg tablet 112 mcg PO DAILYBB 03/09/25 03/14/25 History multivitamin 1 tab PO DAILY 03/09/25 03/14/25 History nitroglycerin 0.4 mg sublingual 0.4 mg sublingual DIRECTED PRN 03/09/25 03/14/25 History tablet (Nitrostat) Chest Pain nystatin 100,000 unit/gram topical 1 applic topical BID PRN NEEDED 03/09/25 03/14/25 History powder (Nystop) ondansetron 8 mg disintegrating 8 mg translingual Q8H PRN 03/09/25 03/14/25 History tablet NAUSEA/VOMITING amoxicillin 500 mg-potassium 1 tab PO BIDM 2 days #4 tabs 03/13/25 03/14/25 Rx clavulanate 125 mg tablet doxycycline hyclate 100 mg capsule 100 mg PO BID@1000,2100 2 days #4 03/13/25 03/14/25 Rx caps metoprolol succinate 25 mg 12.5 mg (1/2 x 25 mg) PO QAM #30 03/13/25 03/14/25 Rx tablet,extended release 24 hr tabs torsemide 10 mg tablet 50 mg (5 x 10 mg) PO QAM #30 tabs 03/13/25 03/14/25 Rx Hospital Stay Data Consultations 03/14/25 15:31 ED Decision to Admit Stat 03/14/25 18:59 Consult Cardiac Electrophysiology Routine Diagnostic Imagining Performed 03/14/25 13:33 CT cervical spine wo con Stat CT head/brain wo con Stat Reviewed imaging, laboratory and diagnostic studies. Pertinent findings as below. WBCs 5.3 Hemoglobin 8.3 Platelets of 116 Electrolytes within normal range Creatinine 2.98, baseline Troponins chronically elevated and at baseline Pending Results Patient Have Any Pending Studies at Discharge: No Discharge Instructions Given to Patient (Per Discharging Provider) Follow-up with cardiology as scheduled On 05/22/2025 in [place] Follow-up with your PCP You do not need to take any more antibiotics. You completed the course of therapy while you were here in the hospital. Total Time Total Time Spent Total Time Spent (In Minutes): 33
--- NOTE | 2025-03-17 06:09 | Electrocardiogram Report ---
Test Reason : Blood Pressure : */* mmHG Vent. Rate : 86 BPM Atrial Rate : 59 BPM P-R Int : * ms QRS Dur : 236 ms QT Int : 534 ms P-R-T Axes : 98 -72 99 degrees QTcB Int : 639 ms Ventricular-paced rhythm Abnormal ECG When compared with ECG of 11-Mar-2025 06:10, Vent. rate has increased by 15 bpm Confirmed by Sumit Cervantes ([id number]) on 03/17/2025 6:09:08 AM Referred By: Confirmed By: Sumit Cervantes
== END 2025-03-16 16:29 | disposition home or self-care (01) | DRG 308 ==
LOC: ED 13:11 → 2S 15:29 → SUATTDRO 15:29 → 2S 15:58

== ENCOUNTER 2025-04-13 11:38 | Inpatient (IN) ==
[2025-04-13 12:15] LABS: Hematocrit (blood only) 30.3 % (42.0-52.0); Hemoglobin 9.4 g/dl (14.0-18.0); Immature Granulocytes # (auto) 0.03 K/uL (0.01-0.20); Immature Granulocytes % (auto) 0.5 %; Mean Corpuscular Hemoglobin 29.0 pg (25.0-34.0); Mean Corpuscular Volume 93.5 fL (80.0-100.0); Platelet Count 171 K/uL (130-400); RDW Standard Deviation 66.3 fL (36.4-46.3); Red Blood Count 3.24 M/uL (4.70-6.10); White Blood Count 5.74 K/ul (4.8-10.8)
[2025-04-13 12:34] LABS: Alanine Aminotransferase 10.0 U/L (7-52); Albumin Globulin Ratio 1.0 (0.9-2); Alkaline Phosphatase 99.0 U/L (34-104); Anion Gap 10.0 (3-11); Bilirubin,Total 1.4 mg/dl (0.2-1.0); Blood Urea Nitrogen 38.0 mg/dl (6-23); Calcium 8.9 mg/dl (8.6-10.3); Carbon Dioxide 27.0 mmol/L (21-32); Chloride 102.0 mmol/L (98-107); Creatinine Clr Calc Pharmacy 22.4 ml/min; Globulin 3.4 gm/dl (2.5-4.0); Glucose 153.0 mg/dl (70-99(Fasting)); Magnesium 2.4 mg/dl (1.7-2.4); Potassium 4.2 mmol/L (3.5-5.1); Sodium 139.0 mmol/L (136-145); Total Protein 6.9 gm/dl (6.0-8.3)
--- NOTE | 2025-04-13 12:50 | Emergency Department Note ---
Impression & Plan ICD (implantable cardioverter-defibrillator) discharge, V-tach ED Provider Note Provider: Norman Hsu MD CHIEF COMPLAINT: Defibrillator shock HISTORY OF PRESENT ILLNESS: Patient is a 84-year-old gentleman significant history of CKD, cardiomyopathy with CHF and history of V. tach, atrial fibrillation atrial flutter on Eliquis and amiodarone presenting here today reporting an fibrillator shock last night. Patient hospitalized in February after similar episode. States compliance with home medication including amiodarone. Talked with hamper maker machine who referred him here today. He feels little weak or tired but denies any chest pain. Denies any syncope or falls. Denies any fever. Maybe a little shortness of breath fatigue recently but not significant by his report. PAST MEDICAL HISTORY: As noted above MEDICATIONS: Reviewed her medications appears to be on 200 mg of amiodarone daily. Is on Eliquis SOCIAL HISTORY: Lives by himself PHYSICAL EXAM: GENERAL: alert and oriented in no acute distress on stretcher Head: normocephalic and atraumatic EYES: No injection, discharge or icterus. NECK: Trachea midline. ENT: Mucous membranes pink and moist. LUNGS: Airway patent. No retractions. Breath sounds clear HEART: Regular rate and rhythm. No chest wall tenderness with left upper chest AICD noted subcutaneously. ABDOMEN: Soft and non-tender, without guarding or rebound. SKIN: Acyanotic, warm, dry, without rashes EXTREMITIES: Without swelling, tenderness or deformity NEUROLOGICAL: No focal deficits. No aphasia. No facial droop or slurred speech. Ambulatory. EK bpm ventricular paced rhythm. Interventricular conduction delay without clear acute ST segment elevation. Compared to previous from March 14 of this year similar morphology. CONTINUOUS CARDIAC MONITORING: was ordered and showed a heart rate of 70s bpm in ventricular paced rhythm Patient's laboratory studies and imaging reviewed. Differential includes Premature contractions, electrolyte abnormality, cardiac dysrhythmia, thyroid dysfunction, pulmonary embolism, infection, gastrointestinal, as well as other pathologies. IMPRESSION/MEDICAL DECISION MAKING: Patient in no distress here. Vitals reassuring. Stable renal dysfunction and anemia without leukocytosis here. No significant electrolyte abnormalities. Troponin 22.8 is stable compared to previous. Pacemaker interrogation was obtained. 1 defibrillation last night. Discussed with device appeals representative. She reports patient's and underlying likely atrial flutter. Conduction block. Had an episode last night just after 10 PM where heart rate went into the 200s. Device attempted ATP pace termination 3 times but given elevated heart rate initiated defibrillation. Patient with about a year of battery life left. Again no significant electrolyte abnormalities. Did reach out discussed with [facility] cardiology who he follows with and they evaluated him here in the emergency department. Again appears unfortunately instead of increasing his amiodarone has been on just once daily dosing since his last discharge. Cardiology reviewed his interrogation. They recommend him to be reloaded with amiodarone and for further evaluation here in the hospital. Discussed with the hospitalist team here. DIAGNOSIS: AICD discharge, episode of VT, long-term anticoagulation DISPOSITION: Hospitalist will evaluate Patient was agreeable with this plan. Past Med/Surg History Problem List (Updated 04/13/25 @ 15:29 by Norman Hsu M.D.) Acute on chronic heart failure with reduced ejection fraction and diastolic dysfunction Cardiomyopathy Chronic renal failure (CRF), stage 4 (severe) Chronic heart failure with reduced ejection fraction (HFrEF, <= 40%) Syncope, cardiogenic Anemia (Acute) Acute head trauma (Acute) CHF (congestive heart failure) (Acute) Elevated troponin (Acute) V-tach (Acute) Syncope (Acute) Recurrent ventricular tachycardia Syncope Atrial fibrillation and flutter (Acute) ICD (implantable cardioverter-defibrillator) discharge (Acute) ICD (implantable cardioverter-defibrillator) in place History of bacteremia Arrhythmia Allergic drug rash due to anti-infective agent Wound of left foot Acute on chronic systolic congestive heart failure (Acute) Demand ischemia Streptococcal bacteremia Severe sepsis with acute organ dysfunction Diarrhea Thrombocytopenia Acute systolic heart failure Ascites Hyperkalemia Elevated troponin level Elevated liver function tests Hepatopathy Acute lactic acidosis Pulmonary edema (Acute) Sepsis (Acute) Elevated brain natriuretic peptide (BNP) level (Acute) Non-ST elevation CO (NSTEMI) (Acute) Acute exacerbation of CHF (congestive heart failure) (Acute) Acute hypoxemic respiratory failure (Acute) Acute dyspnea (Acute) Prostate cancer (Chronic 05/02/24) Rectal bleeding Elevated lactic acid level (Acute) Aspiration pneumonia of left lower lobe (Acute) Small bowel obstruction (Acute) Incarcerated umbilical hernia (Acute) Small bowel obstruction Incarcerated umbilical hernia Elevated prostate specific antigen (PSA) Hypomagnesemia (Acute) VENITA (acute kidney injury) (Acute) Stroke-like symptoms (Acute) Transient vision disturbance of both eyes Peripheral arterial disease Urinary symptom or sign Ventricular tachycardia (Acute) Defibrillator discharge (Acute) History of left shoulder replacement (Chronic) History of inguinal hernia repair (Chronic) "1954" H/O lithotripsy (Chronic) History of right shoulder replacement (Chronic) "2009" History of total right knee replacement (Chronic) "2004 " 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" Chronic anticoagulation (Chronic) 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) Gout (Chronic) Atrial septal aneurysm (Chronic) PFO (patent foramen ovale) (Chronic) BHUPINDER (obstructive sleep apnea) (Chronic) "not on CPAP" DM type 2 (diabetes mellitus, type 2) (Chronic) Dyslipidemia (Chronic) HTN (hypertension) (Chronic) Mitral regurgitation (Chronic) History of cardioembolic stroke (Chronic) Paroxysmal atrial fibrillation (Chronic) "postoperative" Ischemic cardiomyopathy (Chronic) "prior EF 35-40% in August 2008; improved EF 50-54% on 11/24/16 echo" Medical History Streptococcemia Acute kidney injury superimposed on stage 3b chronic kidney disease History of aspiration pneumonia admitted to [facility] 04/2024 Ischemic cardiomyopathy "prior EF 35-40% in August 2008; improved EF 50-54% on 11/24/16 echo" Paroxysmal atrial fibrillation hx--"postoperative" History of cardioembolic stroke ~2016, 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 Mitral regurgitation follows w/ Dr Hyde HTN (hypertension) Dyslipidemia Diabetes mellitus no meds currently BHUPINDER (obstructive sleep apnea) no device PFO (patent foramen ovale) Atrial septal defect Gout Diabetic neuropathy Chronic anticoagulation Hx of renal calculi Hx of ventricular tachycardia Transient vision disturbance of both eyes Peripheral artery disease Rectal bleeding Bowel obstruction (04/2024) recent admission to [facility] DJD of left shoulder Surgical History 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" History of total right knee replacement (2004) History of lithotripsy Hx of inguinal hernia repair (1954) Hx of colonoscopy History of right shoulder replacement (2009) History of left shoulder replacement AICD present, double chamber [employer], implanted 2019 Family History Brother V-tach required AICD Social History Smoking Status: Never smoker Second Hand Exposure: No; Do You Dip or Chew Tobacco: No; Hx Alcohol Use: No Hx Substance Use: No Preferred Language: Serbian Communication Ability: Effective Visual Impairment: No Limitations Hearing Ability: Normal Varnish Blender Required: No Beliefs That Will Affect Care: None marital status: Single Current Living Situation: Alone Current Living Situation Comment: home alone, daughter lives 12 miles away current occupational status: retired Feels Safe at Home: Yes Diet: regular during the past year weight has: decreased > 10 lbs Assistive Devices: Cane and Walker Allergies Allergies Allergy/AdvReac Type Severity Reaction Status Date / Time cefazolin Allergy Intermediate Rash Verified 03/09/25 19:39 ceftriaxone Allergy Intermediate Rash Verified 03/09/25 19:39 lisinopril AdvReac Mild COUGHING Verified 03/09/25 19:39 Home Meds Home Medications Medication Instructions Recorded Confirmed amiodarone 200 mg tablet 200 mg PO QAM 03/09/25 04/13/25 bicalutamide 50 mg tablet (Casodex) 50 mg PO QAM 03/09/25 04/13/25 cholecalciferol (vitamin D3) 25 50 mcg PO DAILY 03/09/25 04/13/25 mcg (1,000 unit) capsule (Vitamin D3) ferrous sulfate 325 mg (65 mg 325 mg PO QAM 03/09/25 04/13/25 iron) tablet (iron) levothyroxine 112 mcg tablet 112 mcg PO DAILYBB 03/09/25 04/13/25 clopidogrel 75 mg tablet (Plavix) 75 mg PO QAM 04/13/25 04/13/25 empagliflozin 10 mg tablet 10 mg PO QAM 04/13/25 04/13/25 (Jardiance) furosemide 40 mg tablet 40 mg PO BID 04/13/25 04/13/25 mirtazapine 15 mg tablet 15 mg PO HS 04/13/25 04/13/25 omega 3-dwa-joa-fish oil 1,000 mg 1 cap PO DAILY 04/13/25 04/13/25 (120 mg-180 mg) capsule (Fish Oil) Previous Rx's Medication Instructions Recorded apixaban 2.5 mg tablet 2.5 mg PO BID #60 tabs 09/15/24 potassium chloride 20 mEq 20 meq PO BID #60 tabs 09/15/24 tablet,extended release(part/cryst) tamsulosin 0.4 mg capsule 0.4 mg PO DAILY #30 caps 09/15/24 metoprolol succinate 25 mg 12.5 mg (1/2 x 25 mg) PO QAM #30 03/13/25 tablet,extended release 24 hr tabs Results & Data (ED) Vital Signs Vital Signs - 24 hr 04/13/25 11:40 04/13/25 13:00 04/13/25 13:00 Temperature 36.8 C Temperature Source Temporal Artery Scan Pulse Rate 89 83 Pulse Rate [Brachial] Pulse Rate from SpO2 Sensor Respiratory Rate 18 19 Respiratory Effort / Characteristics Non-Labored Spontaneous Respiratory Depth Normal Respiratory Pattern Regular Blood Pressure 103/66 Blood Pressure [Right Arm] Blood Pressure Mean 78 Blood Pressure Mean [Right Arm] Pulse Oximetry 96 93 93 Oxygen Delivery Method Room Air Room Air Room Air Sepsis Recent Fever Within 48 Hours No Sepsis New/Unexplained Change in Mental Status N/A Sepsis Action Taken by Nursing No Action Required 04/13/25 13:02 04/13/25 13:23 04/13/25 14:05 Temperature Temperature Source Pulse Rate 71 71 Pulse Rate [Brachial] 79 Pulse Rate from SpO2 Sensor 71 Respiratory Rate 18 20 Respiratory Effort / Characteristics Non-Labored Spontaneous Respiratory Depth Normal Respiratory Pattern Blood Pressure 91/65 L Blood Pressure [Right Arm] 103/70 Blood Pressure Mean 73 Blood Pressure Mean [Right Arm] 81 Pulse Oximetry 92 95 Oxygen Delivery Method Room Air Room Air Sepsis Recent Fever Within 48 Hours Sepsis New/Unexplained Change in Mental Status Sepsis Action Taken by Nursing 04/13/25 15:44 Temperature Temperature Source Pulse Rate Pulse Rate [Brachial] 71 Pulse Rate from SpO2 Sensor Respiratory Rate 16 Respiratory Effort / Characteristics Non-Labored Spontaneous Respiratory Depth Normal Respiratory Pattern Blood Pressure Blood Pressure [Right Arm] 106/67 Blood Pressure Mean Blood Pressure Mean [Right Arm] 80 Pulse Oximetry 93 Oxygen Delivery Method Room Air Sepsis Recent Fever Within 48 Hours Sepsis New/Unexplained Change in Mental Status Sepsis Action Taken by Nursing Laboratory Data 04/13/25 12:00 04/13/25 12:00 Lab Results 04/13/25 04/13/25 Range/Units 12:00 13:49 WBC 5.74 (4.8-10.8) K/ul RBC 3.24 L (4.70-6.10) M/uL Hgb 9.4 L (14.0-18.0) g/dl Hct 30.3 L (42.0-52.0) % MCV 93.5 (80.0-100.0) fL MCH 29.0 (25.0-34.0) pg MCHC 31.0 L (32.0-36.0) g/dL RDW Std Deviation 66.3 H (36.4-46.3) fL RDW Coeff of Perez 19.4 H (11.5-14.5) % Plt Count 171 (130-400) K/uL MPV 9.8 (9.4-12.4) fL Immature Gran % (Auto) 0.5 % Neut % (Auto) 69.0 % Lymph % (Auto) 16.0 % [place] % (Auto) 8.5 % Eos % (Auto) 5.1 % Baso % (Auto) 0.9 % Neut # (Auto) 3.96 (1.40-6.50) K/uL Lymph # (Auto) 0.92 L (1.20-3.40) K/uL [place] # (Auto) 0.49 (0.11-0.59) K/uL Eos # (Auto) 0.29 (0.00-0.50) K/uL Baso # (Auto) 0.05 (0.00-0.20) K/uL Immature Gran # (Auto) 0.03 (0.01-0.20) K/uL PT 12.2 H (9.0-12.0) Seconds INR 1.1 (0.9-1.1) APTT 36 H (21-31) Seconds PTT Ratio 1.3 Sodium 139 (136-145) mmol/L Potassium 4.2 (3.5-5.1) mmol/L Chloride 102 (98-107) mmol/L Carbon Dioxide 27 (21-32) mmol/L Anion Gap 10 (3-11) BUN 38 H (6-23) mg/dl Creatinine 2.68 H (0.6-1.4) mg/dl Est Cr Clr Drug Dosing 22.4 ml/min eGFR 23.02 BUN/Creatinine Ratio 14.2 (10-20) Glucose 153 H (70-99(Fasting)) mg/dl Calcium 8.9 (8.6-10.3) mg/dl Magnesium 2.4 (1.7-2.4) mg/dl Total Bilirubin 1.4 H (0.2-1.0) mg/dl AST 13 (13-39) U/L ALT 10 (7-52) U/L Alkaline Phosphatase 99 (34-104) U/L Troponin I High Sens 22.8 H 19.1 (0-20) pg/ml Total Protein 6.9 (6.0-8.3) gm/dl Albumin 3.5 (3.4-5.0) gm/dl Globulin 3.4 (2.5-4.0) gm/dl Albumin/Globulin Ratio 1.0 (0.9-2) TSH 2.279 (0.300-4.500) uIu/ml Administered Medications Discontinued Medications Furosemide (Furosemide 40 Mg/4 Ml Vial) 40 mg IV ONE ONE Stop: 04/13/25 14:28 Last Admin: 04/13/25 15:04 Dose: 40 mg Documented By: NANCY Imaging Data Radiologist's Impression: Chest X-Ray 04/13/25 11:46 XR chest 1V not portable CLINICAL HISTORY: Chest pain, nonspecific COMPARISON STUDY: 03/14/2025 FINDINGS: Stable CABG, pacemaker, shoulder prostheses. Stable prominent cardiomegaly with increased pulmonary vascular congestion. No consolidation or pleural effusion. No pneumothorax. IMPRESSION: CHF. ACT 112: Negative or not required by law. Electronically signed by: Babak Ayala M.D. 04/13/2025 12:59 PM Discharge Plan Visit Data Chief Complaint: Cardiac Assessment Stated Complaint: DEFIB KICKED ON LAST NIGHT/REF BY DR LORENZO Provider: Norman Hsu Discharge Problem: ICD (implantable cardioverter-defibrillator) discharge, V-tach Patient Disposition: Being Evaluated by Hospitalist Condition: Fair Forms Stand Alone Forms: [email or web address] Prescriptions Prescriptions: No Action bicalutamide [Casodex] 50 mg Tablet 50 mg PO QAM ferrous sulfate [iron] 325 mg (65 mg iron) Tablet 325 mg PO QAM cholecalciferol (vitamin D3) [Vitamin D3] 25 mcg (1,000 unit) Capsule 50 mcg PO DAILY amiodarone 200 mg tablet 200 mg PO QAM levothyroxine 112 mcg tablet 112 mcg PO DAILYBB metoprolol succinate 25 mg Tablet Extended Release 24 Hr 12.5 mg PO QAM Qty: 30 0RF furosemide 40 mg Tablet 40 mg PO BID Rx Instructions: Morning and Noon mirtazapine 15 mg tablet 15 mg PO HS omega 4-tjy-mfr-fish oil [Fish Oil] 1,000 (120-180) mg Capsule 1 cap PO DAILY Jardiance 10 mg Tablet 10 mg PO QAM clopidogrel [Plavix] 75 mg tablet 75 mg PO QAM potassium chloride 20 mEq Tablet,Er Particles/Crystals 20 meq PO BID Qty: 60 0RF tamsulosin 0.4 mg capsule 0.4 mg PO DAILY Qty: 30 3RF apixaban 2.5 mg Tablet 2.5 mg PO BID Qty: 60 0RF Referrals Referrals: Sandra Judge MD [Primary Care Provider] -
--- NOTE | 2025-04-13 13:00 | XRay Report ---
XR chest 1V not portable CLINICAL HISTORY: Chest pain, nonspecific COMPARISON STUDY: 03/14/2025 FINDINGS: Stable CABG, pacemaker, shoulder prostheses. Stable prominent cardiomegaly with increased p ulmonary vascular congestion. No consolidation or pleural effusion. No pneumothorax. IMPRESSION: CHF. ACT 112: Negative or not required by law. Electronically signed by: Babak Ayala M.D. 04/13/2025 12:59 PM
--- NOTE | 2025-04-13 13:11 | Cardiology Consultation ---
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 Multiple recent admissions for Acute HFrEF and VT reviewed. Amiodarone was to be increased to 200 mg BID in February 2025, however per review of pill packet med list (created on 04/04), patient has only been taking amiodarone 200 mg daily. Patient was also to be transitioned from furosemide to torsemide 50 mg due to recurrent HF symptoms, but this was never changed. Per device interrogation, patient received successful ICD shock at 21:10 last evening at 35 J. He has persistent underlying atrial fibrillation with controlled rates. He was unaware of his device therapy until the office called him this morning. However he does admit to worsening SOB over the last few days/weeks with low energy and fatigue. Recurrent VT -Increase amiodarone to 200 mg BID. Will need to verify pharmacy has new script and update pill packs upon discharge. -Potassium acceptable at 4.2 -Magnesium normal at 2.4 -Continue metoprolol succinate 25 mg 1/2 tab daily. Dose has been limited in the past by hypotension -Recheck TSH/T4 -amiodarone level ordered -LFT's normal -will need to discuss with EP regarding plans for possible BIV upgrade and/or VT ablation. Acute HFrEF -Patient presenting with SOB/cough -Rales on exam -Chest xray consistent with mild pulm vascular congestion -Recommend IV lasix 40 mg now -Monitor renal function. known CKD with creatinine of 2.68, which is consistent with baseline -Keep potassium 4-5 -Monitor I+O's -Daily weight with standing scale. Chronic/persistent atrial fib/flutter dating back to January 2025 -rates controlled on metoprolol -continue low dose Eliquis 2.5 mg BID Ischemic cardiomyopathy -LVEF 25-30% -continue GDMT as tolerated. Meds limited by hypotension -continue Plavix, metoprolol, Jardiance, diuretic -? not on statin= will need to review outpatient chart for reasoning Case discussed with Dr. Do. Further recommendations pending his evaluation I spent a total of 65 minutes on the date of service in preparation, delivery, and documentation of the care provided to this patient, excluding any time spent in the performance of separately billed services. Isi Diego PA-C Department of Cardiology, [facility] This chart was completed in part utilizing Speech Voice Recognition Software. Grammatical errors, random word insertions, pronoun errors, and incomplete sentences are an occasional consequence of this system due to software limitations, ambient noise, and hardware issues. Any formal questions or concerns about the content, text, or information contained within the body of this dictation should be directly addressed to the provider for clarification. Supervising Physician Co-Signing Physician Notes Attending attestation: Case reviewed with the advanced practitioner. I have personally performed a history and physical examination on the patient. I have reviewed the advanced practitioner's documentation on the date of service referenced in note, and I agree with, and take responsibility for the plan of care. Subjective:Patient notes 3 weeks of progressive shortness of breath. He did not feel the AICD discharge that happened overnight last night. Exam: Cardiovascular: Regular rhythm, 2/6 systolic murmur, 1+ lower extremity edema Data: Echocardiogram in February revealed ejection fraction in the range of 25 to 30%, with findings of dyssynchrony, moderate MR, moderate aortic stenosis Device interrogation reveals underlying atrial flutter, generator longevity stable 12 months longevity. AICD discharge noted 04/12/2025 at 2110 Impression/ Plan: -Reload with amiodarone, amiodarone infusion overnight, increase oral dose to 200 mg twice daily. Load with both oral and IV. AST, ALT normal. Bilirubin mildly elevated. TSH within normal limits. -Furosemide 40 mg x 1 administered in the emergency department. Will reassess kidney function and blood pressure tomorrow. -Future considerations include consideration of complex EP procedures including upgrade to a [employer] device, flutter ablation, VT ablation. -No indication for repeat echocardiogram this admission thus far. I spent a total of 25 minutes coordinating, documenting, and providing care for this patient excluding time spent in the performance of separately billed services or time spent by another provider. Conrad Do, DO History of Present Illness Reason for Consultation: ICD shock Requesting Physician: ER Physician; [facility] Hospitalist Attending Physician: Dr. Do History of Present Illness Elder aGrcia (Rick) is a complex 84-year-old male who was presented to [facility] ER today, 04/13/25 after receiving additional AICD shock for VT. This is his 3rd ICD shock in the last 4-6 weeks, prompting admission/evaluation. Recent history includes admission to [facility] March 09, 2025 to March 13, 2025 with complaints of shortness of breath, weakness, atypical chest discomfort (reproducible with palpation of the chest wall). Cardiology consultation requested due to acute on chronic heart failure and recurrent ventricular tachycardia with successful ICD shock on March 07, 2025. Patient unaware of ICD discharge at that time. Personal review of patient's device i nterrogation revealed recurrent atrial fibrillation/flutter since January 2025, as possible precipitant to decompensation presentation. Volume status improved with IV furosemide. Patient discharged to home on March 13, 2025 on an increased dose of amiodarone (200 mg twice per day). Metoprolol succinate prescribed at 12.5 mg/day. Furosemide 80 mg/day changed to torsemide at 50 mg/day. On morning of 03/14, patient had recurrent syncopal event. Found to have recurrent VT s/p antitachycardia pacing (failed) and then 1 shock for VT/VF. Potassium and magnesium were supplemented. Amiodarone was reloaded and discharged on amio 200 mg BID and metoprolol succinate 12.5 mg daily. [employer] rep reprogrammed device during admission. Close f/u with EP was recommended to discuss BIV upgrade vs VT ablation. During admission, potassium and magnesium were supplemented and discharged with supplements as well. There has been multiple reports of medication non compliance in in patient and outpatient records. Yesterday, patient called the clinic to report worsening SOB, weakness and fatigue with LE edema. ER recommended but patient declined at that time. Device clinic received an alert this morning that patient had recurrent ICD shock with 35 J on 04/12 at 21:10 for VT which was successful. Underlying rhythm was atrial fib/flutter. It appears patient then had PVC and developed recurrent VT with appropriate shock and conversion to NSR Per telephone encounter, patient reports he was unaware of ICD shock last night. Device clinic called him this morning and referred him to the ER. At time of evaluation in the ER, patient resting comfortably. He admits to increased cough and weight gain of about 5 lbs. He reports compliance with his medications at home. Follows pill packets provided by [facility] pharmacy. He brings copy of med list from the pill packs, last provided on 04/04 - amiodarone 200 mg is listed as 1 tablet daily. It appears this was never increased to 200 mg BID as previously recommended on discharge. He also remains on furosemide 40 mg BID, never transitioned to torsemide 50 mg daily. He admits to dyspnea with exertion but no SOB at rest. Mild orthopnea noted. B/L edema is unchanged per patient. Prior Problem List: Atherosclerotic coronary artery disease Status post acute myocardial infarction circa 1996 Ischemic cardiomyopathy, LVEF 30-35%. Status post CABG x 3 on 10/21/2015. MCGEE to the LAD. SVG to OM1. SVG to the OM2. Atrial fibrillation, perviously paroxysmal, persistent since January 2025 Recurrent cardioembolic CVAs Ocular migraine Asymptomatic frequent ventricular ectopy Sustained ventricular tachycardia s/p dual chamber ICD on 02/14/2019 and initiation of amiodarone. Recurrent VT on 02/18/2019 noncompliance with medications post discharge, status post ATP x 2 Peripheral arterial disease Atrial septal aneurysm Patent foramen ovale Hypertension Dyslipidemia Hypothyroidism Type II diabetes mellitus with neuropathy, left foot diabetic ulcer Stage III-IV chronic kidney disease History of multiple kidney stones Obstructive sleep apnea, untreated DVT in Left arm after left shoulder surgery from 11/2016 Iron-deficiency anemia Prostate cancer, status post radiation treatment, Casodex Cirrhosis Gout Family History: Mother at 92. Father in an MVA. Brother with CAD. Social History: Nonsmoker. No alcohol. No illegal drug use. . Single. Son at the age of 49 with an KS. Allergies Allergy/AdvReac Type Severity Reaction Status Date / Time cefazolin Allergy Intermediate Rash Verified 03/09/25 19:39 ceftriaxone Allergy Intermediate Rash Verified 03/09/25 19:39 lisinopril AdvReac Mild COUGHING Verified 03/09/25 19:39 Home Medications Medication Instructions Recorded Confirmed Type apixaban 2.5 mg tablet 2.5 mg PO BID #60 tabs 09/15/24 04/13/25 Rx potassium chloride 20 mEq 20 meq PO BID #60 tabs 09/15/24 04/13/25 Rx tablet,extended release(part/cryst) tamsulosin 0.4 mg capsule 0.4 mg PO DAILY #30 caps 09/15/24 04/13/25 Rx amiodarone 200 mg tablet 200 mg PO QAM 03/09/25 04/13/25 History bicalutamide 50 mg tablet (Casodex) 50 mg PO QAM 03/09/25 04/13/25 History cholecalciferol (vitamin D3) 25 50 mcg PO DAILY 03/09/25 04/13/25 History mcg (1,000 unit) capsule (Vitamin D3) ferrous sulfate 325 mg (65 mg 325 mg PO QAM 03/09/25 04/13/25 History iron) tablet (iron) levothyroxine 112 mcg tablet 112 mcg PO DAILYBB 03/09/25 04/13/25 History metoprolol succinate 25 mg 12.5 mg (1/2 x 25 mg) PO QAM #30 03/13/25 04/13/25 Rx tablet,extended release 24 hr tabs clopidogrel 75 mg tablet (Plavix) 75 mg PO QAM 04/13/25 04/13/25 History empagliflozin 10 mg tablet 10 mg PO QAM 04/13/25 04/13/25 History (Jardiance) furosemide 40 mg tablet 40 mg PO BID 04/13/25 04/13/25 History mirtazapine 15 mg tablet 15 mg PO HS 04/13/25 04/13/25 History omega 6-kll-uqt-fish oil 1,000 mg 1 cap PO DAILY 04/13/25 04/13/25 History (120 mg-180 mg) capsule (Fish Oil) Patient History Medical History Streptococcemia Acute kidney injury superimposed on stage 3b chronic kidney disease History of aspiration pneumonia admitted to [facility] 04/2024 Ischemic cardiomyopathy "prior EF 35-40% in August 2008; improved EF 50-54% on 11/24/16 echo" Paroxysmal atrial fibrillation hx--"postoperative" History of cardioembolic stroke ~2016, 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 Mitral regurgitation follows w/ Dr Hyde HTN (hypertension) Dyslipidemia Diabetes mellitus no meds currently BHUPINDER (obstructive sleep apnea) no device PFO (patent foramen ovale) Atrial septal defect Gout Diabetic neuropathy Chronic anticoagulation Hx of renal calculi Hx of ventricular tachycardia Transient vision disturbance of both eyes Peripheral artery disease Rectal bleeding Bowel obstruction (04/2024) recent admission to [facility] DJD of left shoulder Surgical History 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" History of total right knee replacement (2004) History of lithotripsy Hx of inguinal hernia repair (1954) Hx of colonoscopy History of right shoulder replacement (2009) History of left shoulder replacement AICD present, double chamber [employer], implanted 2018 Family History Brother V-tach required AICD Social History Smoking Status: Never smoker Second Hand Exposure: No; Do You Dip or Chew Tobacco: No; Hx Alcohol Use: No Hx Substance Use: No Preferred Language: Chinese Communication Ability: Effective Visual Impairment: No Limitations Hearing Ability: Normal Glass Fitter Required: No Beliefs That Will Affect Care: None marital status: Single Current Living Situation: Alone Current Living Situation Comment: home alone, daughter lives 12 miles away current occupational status: retired Feels Safe at Home: Yes Diet: regular during the past year weight has: decreased > 10 lbs Assistive Devices: Cane and Walker Review of Systems Review of Systems: All systems reviewed & are unremarkable except as noted in HPI & below Physical Exam Constitutional: WD/WN, vitals as above Neck: trachea midline, no thyromegaly Respiratory: + cough; no labored breathing Auscult ation: + crackles (bases b/l) Cardiovascular: Rate/Rhythm: regular rhythm Heart Sounds: + murmur (II/ systolic murmur) Vessels: + JVD Extremities: + edema (+ pretibial edema b/l) Gastrointestinal (Abdomen): normal bowel sounds, soft, nontender, no hepatosplenomegaly Musculoskeletal: no cyanosis or clubbing, extremities motor strength 5/5 Neurologic: PERRL, EOMI, accommodation nl, no face palsy, no dysarthria Results & Data Vital Signs (Past 12 Hours) Vital Signs Temp Pulse Pulse Resp BP BP Pulse Ox 04/13/25 13:02 79 18 103/70 92 04/13/25 13:00 83 19 93 04/13/25 13:00 93 04/13/25 11:40 36.8 C 89 18 103/66 96 O2 Del Method 04/13/25 13:02 Room Air 04/13/25 13:00 Room Air 04/13/25 13:00 Room Air 04/13/25 11:40 Room Air Laboratory Results Cardiac Enzymes 04/13/25 Range/Units 12:00 AST 13 (13-39) U/L Troponin I High Sens 22.8 H (0-20) pg/ml CBC 04/13/25 Range/Units 12:00 WBC 5.74 (4.8-10.8) K/ul RBC 3.24 L (4.70-6.10) M/uL Hgb 9.4 L (14.0-18.0) g/dl Hct 30.3 L (42.0-52.0) % Plt Count 171 (130-400) K/uL Neut # (Auto) 3.96 (1.40-6.50) K/uL Lymph # (Auto) 0.92 L (1.20-3.40) K/uL [place] # (Auto) 0.49 (0.11-0.59) K/uL Eos # (Auto) 0.29 (0.00-0.50) K/uL Baso # (Auto) 0.05 (0.00-0.20) K/uL Comprehensive Metabolic Panel 04/13/25 Range/Units 12:00 Sodium 139 (136-145) mmol/L Potassium 4.2 (3.5-5.1) mmol/L Chloride 102 (98-107) mmol/L Carbon Dioxide 27 (21-32) mmol/L BUN 38 H (6-23) mg/dl Creatinine 2.68 H (0.6-1.4) mg/dl Glucose 153 H (70-99(Fasting)) mg/dl Calcium 8.9 (8.6-10.3) mg/dl AST 13 (13-39) U/L ALT 10 (7-52) U/L Alkaline Phosphatase 99 (34-104) U/L Total Protein 6.9 (6.0-8.3) gm/dl Albumin 3.5 (3.4-5.0) gm/dl Intake and Output 04/12/25 04/13/25 04/13/25 22:59 06:59 14:59 Other: Weight 84 kg Weight Measurement Method Chair Scale Patient Weight 04/14/25 06:59 Weight 84 kg Diagnostic Findings Telemetry reviewed: ventricular paced in the 70's EKG reviewed on admission: Ventricular paced rhythm in the 70's Device interrogation reviewed/discussed with [employer]: Underlying atrial fib/flutter. Last evening patient developed VT with 3 attempts of ATP pacing (failed), followed by 35 J shock which was successful. Chest X-Ray 04/13/25 11:46 XR chest 1V not portable CLINICAL HISTORY: Chest pain, nonspecific COMPARISON STUDY: 03/14/2025 FINDINGS: Stable CABG, pacemaker, shoulder prostheses. Stable prominent cardiomegaly with increased pulmonary vascular congestion. No consolidation or pleural effusion. No pneumothorax. IMPRESSION: CHF. ACT 112: Negative or not required by law. Electronically signed by: Babak Ayala M.D. 04/13/2025 12:59 PM Prior data reviewed: Echo results reviewed dated 03/11/2025: LVEF 25 to 30%. Moderate concentric LVH. LV is mildly dilated. Grade 3 of diastolic dysfunction Diffuse hypokinesis to akinesis. Left atrium is severely dilated. Right atrium is moderately to severely dilated. 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
[2025-04-13 13:38] LABS: INR 1.1 (0.9-1.1); Partial Thromboplastin Time 36 Seconds (21-31); Prothrombin Time 12.2 Seconds (9.0-12.0)
[2025-04-13 14:35] LABS: Thyroid Stimulating Hormone 2.279 uIu/ml (0.300-4.500)
[2025-04-13] MEDS: FUROSEMIDE 40 MG/4 ML VIAL IV ONE (15:04)
[2025-04-13] MEDS ORDERED: STAT IV Infusion **Titration per Protocol STA (16:20)
[2025-04-13] MEDS ORDERED: 0.2 MICRON FILTER SET 1 EACH IV STA (16:20)
--- NOTE | 2025-04-13 16:22 | History & Physical Report ---
Date of Service April 13, 2025 Assessment & Plan (1) Acute on chronic heart failure with reduced ejection fraction and diastolic dysfunction: (2) Recurrent ventricular tachycardia: Plan 84M with PMH HFrEF 30%, CAD s/p CABG, permanent afib on eliquis, recurrent VT s/p ICD, NIDDM, CKD3, BHUPINDER not on CPAP, prostate CA, cirrhosis , HTN who presents with AICD shock last evening. #Recurrent VT -Longstanding issue for patient -Was not taking the prescribed amio BID at home -S/p successful ICD shock on 04/12 Plan -Already evaluated by cardio, appreciate input -Continue amio drip per cardio -Continue home toprol 12.5 daily -Cardiac monitoring -Follow electrolytes -May need BIV upgrade and/or VT ablation #Acute on chronic HFrEF -EF 30% -History of ICM -Recurrent VT and permanent afib also likely contributing -CXR showing pulm edema, worsening B/l LE edema, RECIO -No O2 requirements Plan -Continue IV lasix per cardio -Monitor renal function closely given his CKD3/4 -Monitor daily weights, IOs -Guideline directed therapy as tolerated per cardio #CAD s/p CABG -Continue plavix, BB, SGLT2 -No chest pain. -Not on statin and patient could not state why #Permanent Afib -Continue eliquis for stroke prophylaxis #CKD3/4 -At baseline -Avoid nephroxic agents if possible #HTN -Continue cardiac regimen. history of hypotension in the past #HLD #NIDDM -Continue home SGLT2 -Add SSI #BPH -Flomax History of Present Illness Chief Complaint: Defib shock Primary Care Provider: Sandra Judge MD Mr. Garcia is a pleasant 84M with PMH HFrEF 30%, CAD s/p CABG, permanent afib on eliquis, recurrent VT s/p ICD, NIDDM, CKD3, BHUPINDER not on CPAP, prostate CA, cirrhosis , HTN who presents with AICD shock last evening. He was asymptomatic during the shock. He was then directed to come to the ED by his cardiology team. Patient was admitted in february 2025 for recurrent VT. At that time, his amio was increased to BID but patient was still only taking it daily. Today, his device was interrogated which showed VT and successful ICD shock last evening. Patient states he has been more SOB over the past few months. He also endorses worsening b/l LE edema. He was to be transitioned from lasix to torsemide but patient never started taking the torsemide for unclear reasons during interview. Currently, he denies f/c cp palp dyspnea cough wheez abd pain nvd Vitals stable in ED Labs essentially at baseline Allergies Allergy/AdvReac Type Severity Reaction Status Date / Time cefazolin Allergy Intermediate Rash Verified 03/09/25 19:39 ceftriaxone Allergy Intermediate Rash Verified 03/09/25 19:39 lisinopril AdvReac Mild COUGHING Verified 03/09/25 19:39 Home Medications Medication Instructions Recorded Confirmed Type apixaban 2.5 mg tablet 2.5 mg PO BID #60 tabs 09/15/24 04/13/25 Rx potassium chloride 20 mEq 20 meq PO BID #60 tabs 09/15/24 04/13/25 Rx tablet,extended release(part/cryst) tamsulosin 0.4 mg capsule 0.4 mg PO DAILY #30 caps 09/15/24 04/13/25 Rx amiodarone 200 mg tablet 200 mg PO QAM 03/09/25 04/13/25 History bicalutamide 50 mg tablet (Casodex) 50 mg PO QAM 03/09/25 04/13/25 History cholecalciferol (vitamin D3) 25 50 mcg PO DAILY 03/09/25 04/13/25 History mcg (1,000 unit) capsule (Vitamin D3) ferrous sulfate 325 mg (65 mg 325 mg PO QAM 03/09/25 04/13/25 History iron) tablet (iron) levothyroxine 112 mcg tablet 112 mcg PO DAILYBB 03/09/25 04/13/25 History metoprolol succinate 25 mg 12.5 mg (1/2 x 25 mg) PO QAM #30 03/13/25 04/13/25 Rx tablet,extended release 24 hr tabs clopidogrel 75 mg tablet (Plavix) 75 mg PO QAM 04/13/25 04/13/25 History empagliflozin 10 mg tablet 10 mg PO QAM 04/13/25 04/13/25 History (Jardiance) furosemide 40 mg tablet 40 mg PO BID 04/13/25 04/13/25 History mirtazapine 15 mg tablet 15 mg PO HS 04/13/25 04/13/25 History omega 6-odl-wgl-fish oil 1,000 mg 1 cap PO DAILY 04/13/25 04/13/25 History (120 mg-180 mg) capsule (Fish Oil) Past Med/Surg History Problem List Acute on chronic heart failure with reduced ejection fraction and diastolic dysfunction Cardiomyopathy Chronic renal failure (CRF), stage 4 (severe) Chronic heart failure with reduced ejection fraction (HFrEF, <= 40%) Syncope, cardiogenic Anemia (Acute) Acute head trauma (Acute) CHF (congestive heart failure) (Acute) Elevated troponin (Acute) V-tach (Acute) Syncope (Acute) Recurrent ventricular tachycardia Syncope Atrial fibrillation and flutter (Acute) ICD (implantable cardioverter-defibrillator) discharge (Acute) ICD (implantable cardioverter-defibrillator) in place History of bacteremia Arrhythmia Allergic drug rash due to anti-infective agent Wound of left foot Acute on chronic systolic congestive heart failure (Acute) Demand ischemia Streptococcal bacteremia Severe sepsis with acute organ dysfunction Diarrhea Thrombocytopenia Acute systolic heart failure Ascites Hyperkalemia Elevated troponin level Elevated liver function tests Hepatopathy Acute lactic acidosis Pulmonary edema (Acute) Sepsis (Acute) Elevated brain natriuretic peptide (BNP) level (Acute) Non-ST elevation ND (NSTEMI) (Acute) Acute exacerbation of CHF (congestive heart failure) (Acute) Acute hypoxemic respiratory failure (Acute) Acute dyspnea (Acute) Prostate cancer (Chronic 05/02/24) Rectal bleeding Elevated lactic acid level (Acute) Aspiration pneumonia of left lower lobe (Acute) Small bowel obstruction (Acute) Incarcerated umbilical hernia (Acute) Small bowel obstruction Incarcerated umbilical hernia Elevated prostate specific antigen (PSA) Hypomagnesemia (Acute) VENITA (acute kidney injury) (Acute) Stroke-like symptoms (Acute) Transient vision disturbance of both eyes Peripheral arterial disease Urinary symptom or sign Ventricular tachycardia (Acute) Defibrillator discharge (Acute) History of left shoulder replacement (Chronic) History of inguinal hernia repair (Chronic) "1955" H/O lithotripsy (Chronic) History of right shoulder replacement (Chronic) "2009" History of total right knee replacement (Chronic) "2004 " 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" Chronic anticoagulation (Chronic) 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) Gout (Chronic) Atrial septal aneurysm (Chronic) PFO (patent foramen ovale) (Chronic) BHUPINDER (obstructive sleep apnea) (Chronic) "not on CPAP" DM type 2 (diabetes mellitus, type 2) (Chronic) Dyslipidemia (Chronic) HTN (hypertension) (Chronic) Mitral regurgitation (Chronic) History of cardioembolic stroke (Chronic) Paroxysmal atrial fibrillation (Chronic) "postoperative" Ischemic cardiomyopathy (Chronic) "prior EF 35-40% in August 2008; improved EF 50-54% on 11/24/16 echo" Medical History Streptococcemia Acute kidney injury superimposed on stage 3b chronic kidney disease History of aspiration pneumonia admitted to [facility] 04/2024 Ischemic cardiomyopathy "prior EF 35-40% in August 2008; improved EF 50-54% on 11/24/16 echo" Paroxysmal atrial fibrillation hx--"postoperative" History of cardioembolic stroke ~2016, 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 Mitral regurgitation follows w/ Dr Hyde HTN (hypertension) Dyslipidemia Diabetes mellitus no meds currently BHUPINDER (obstructive sleep apnea) no device PFO (patent foramen ovale) Atrial septal defect Gout Diabetic neuropathy Chronic anticoagulation Hx of renal calculi Hx of ventricular tachycardia Transient vision disturbance of both eyes Peripheral artery disease Rectal bleeding Bowel obstruction (04/2024) recent admission to [facility] DJD of left shoulder Surgical History 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" History of total right knee replacement (2004) History of lithotripsy Hx of inguinal hernia repair (1954) Hx of colonoscopy History of right shoulder replacement (2009) History of left shoulder replacement AICD present, double chamber [employer], implanted 2018 Family History Brother V-tach required AICD Social History Smoking Status: Never smoker Second Hand Exposure: No; Do You Dip or Chew Tobacco: No; Hx Alcohol Use: No Hx Substance Use: No Preferred Language: Guamanian Communication Ability: Effective Visual Impairment: No Limitations Hearing Ability: Normal Bullet Swaging Machine Adjuster Required: No Beliefs That Will Affect Care: None marital status: Single Current Living Situation: Alone Current Living Situation Comment: home alone, daughter lives 12 miles away current occupational status: retired Feels Safe at Home: Yes Diet: regular during the past year weight has: decreased > 10 lbs Assistive Devices: Cane and Walker Review of Systems Review of Systems: 14 point ROS negative unless otherwise s tated in HPI Physical Exam Physical Exam: Vitals and labs reviewed General: Chronically ill appearing. elderly. NAD HEENT: EOMI, PERRLA Neck: Supple Cardiac: RRR no rubs gallops Lungs: CTA no rhonchi wheezing or rales Abd: S NT ND BS positive : Defferred MSK: Full ROM. No obvious deformities Ext: 1+ b/l LE pitting Edema cyanosis Skin: Warm, Dry Neuro: AOx3 No focal deficits. Psych: Normal Mood Results & Data Results & Data Vital Signs (Past 12 Hours) Vital Signs Temp Pulse Pulse Resp BP BP Pulse Ox 04/13/25 15:44 71 16 106/67 93 04/13/25 14:05 71 20 91/65 L 95 04/13/25 13:23 71 04/13/25 13:02 79 18 103/70 92 04/13/25 13:00 83 19 93 04/13/25 13:00 93 04/13/25 11:40 36.8 C 89 18 103/66 96 O2 Del Method 04/13/25 15:44 Room Air 04/13/25 14:05 Room Air 04/13/25 13:23 04/13/25 13:02 Room Air 04/13/25 13:00 Room Air 04/13/25 13:00 Room Air 04/13/25 11:40 Room Air Laboratory Results Abnormal lab results 04/13/25 Range/Units 12:00 RBC 3.24 L (4.70-6.10) M/uL Hgb 9.4 L (14.0-18.0) g/dl Hct 30.3 L (42.0-52.0) % MCHC 31.0 L (32.0-36.0) g/dL RDW Std Deviation 66.3 H (36.4-46.3) fL RDW Coeff of Perez 19.4 H (11.5-14.5) % Lymph # (Auto) 0.92 L (1.20-3.40) K/uL PT 12.2 H (9.0-12.0) Seconds APTT 36 H (21-31) Seconds BUN 38 H (6-23) mg/dl Creatinine 2.68 H (0.6-1.4) mg/dl Glucose 153 H (70-99(Fasting)) mg/dl Total Bilirubin 1.4 H (0.2-1.0) mg/dl Troponin I High Sens 22.8 H (0-20) pg/ml Diagnostic Findings Chest X-Ray 04/13/25 11:46 XR chest 1V not portable CLINICAL HISTORY: Chest pain, nonspecific COMPARISON STUDY: 03/14/2025 FINDINGS: Stable CABG, pacemaker, shoulder prostheses. Stable prominent cardiomegaly with increased pulmonary vascular congestion. No consolidation or pleural effusion. No pneumothorax. IMPRESSION: CHF. ACT 112: Negative or not required by law. Electronically signed by: Babak Ayala M.D. 04/13/2025 12:59 PM Code Status & VTE Plan Code Status full
[2025-04-13] MEDS: AMIODARONE / D5W 150 MG/100 ML BAG IV STA (16:31)
[2025-04-13] MEDS: AMIODARONE / D5W 360 MG/200 ML BAG IV ONE (16:49)
[2025-04-13] MEDS ORDERED: DEXTROSE 50% 50 ML SYRINGE IV PRN (17:49)
[2025-04-13] MEDS ORDERED: CARBOHYDRATES FOR HYPOGLYCEMIA PO PRN (17:49)
[2025-04-13] MEDS ORDERED: GLUCAGON FOR INJ 1 MG VIAL SQ PRN (17:49)
[2025-04-13] MEDS ORDERED: ONDANSETRON INJ 2 MG/ML 2 ML VIAL IV PRN (17:49)
[2025-04-13] MEDS ORDERED: GLUCOSE 40% GEL 15 GM TUBE PO PRN (17:49)
[2025-04-13] MEDS ORDERED: GLUCOSE 10 TAB/TUBE PO PRN (17:49)
[2025-04-13] MEDS: AMIODARONE IV BOLUS & DRIP IV STA (18:09)
[2025-04-13] MEDS: INSULIN ASPART PER UNIT CHARGE SC SCH (18:17)
[2025-04-13] MEDS: AMIODARONE 200 MG TAB PO SCH (18:20)
[2025-04-13] MEDS: ALBUMIN 25% 12.5 GM/50 ML VIAL IV ONE (20:19)
[2025-04-13] MEDS: APIXABAN 2.5 MG TAB PO SCH (21:52)
[2025-04-13] MEDS: MIRTAZAPINE TAB 15 MG TAB PO SCH (21:53)
[2025-04-13] MEDS: AMIODARONE / D5W 360 MG/200 ML BAG IV SCH (22:40)
[2025-04-14] MEDS: LEVOTHYROXINE SODIUM 112 MCG TABLET PO SCH (05:50)
[2025-04-14] MEDS: ACETAMINOPHEN 325 MG TAB PO PRN (05:50)
[2025-04-14 06:11] LABS: Hematocrit (blood only) 24.8 % (42.0-52.0); Hemoglobin 8.1 g/dl (14.0-18.0); Immature Granulocytes # (auto) 0.02 K/uL (0.01-0.20); Immature Granulocytes % (auto) 0.4 %; Mean Corpuscular Hemoglobin 29.6 pg (25.0-34.0); Mean Corpuscular Volume 90.5 fL (80.0-100.0); Platelet Count 153 K/uL (130-400); RDW Standard Deviation 64.7 fL (36.4-46.3); Red Blood Count 2.74 M/uL (4.70-6.10); White Blood Count 5.49 K/ul (4.8-10.8)
[2025-04-14 06:33] LABS: Anion Gap 9.0 (3-11); Blood Urea Nitrogen 40.0 mg/dl (6-23); Calcium 8.5 mg/dl (8.6-10.3); Carbon Dioxide 27.0 mmol/L (21-32); Chloride 102.0 mmol/L (98-107); Creatinine Clr Calc Pharmacy 19.0 ml/min; Glucose 148.0 mg/dl (70-99(Fasting)); Magnesium 2.3 mg/dl (1.7-2.4); Potassium 3.8 mmol/L (3.5-5.1); Sodium 138.0 mmol/L (136-145)
[2025-04-14] MEDS: CLOPIDOGREL BISULFATE 75 MG TAB PO SCH (08:25)
[2025-04-14] MEDS: TAMSULOSIN HCL 0.4 MG CAP PO SCH (08:25)
[2025-04-14] MEDS: BICALUTAMIDE 50 MG TAB PO SCH (08:25)
[2025-04-14] MEDS: EMPAGLIFLOZIN 10 MG TAB PO SCH (08:33)
[2025-04-14] MEDS: METOPROLOL SUCC 25MG EXT REL TAB PO SCH (08:33)
[2025-04-14] MEDS: POTASSIUM CHLORIDE 10 MEQ TABCR PO ONE (08:34)
--- NOTE | 2025-04-14 11:40 | Hospitalist Progress Note ---
Date of Service April 14, 2025 Assessment & Plan (1) Acute on chronic heart failure with reduced ejection fraction and diastolic dysfunction: (2) Recurrent ventricular tachycardia: Plan Patient is an 84M with PMH HFrEF 30%, CAD s/p CABG, permanent afib on eliquis, recurrent VT s/p ICD, NIDDM, CKD3, BHUPINDER not on CPAP, prostate CA, cirrhosis , HTN who presents with AICD shock last evening. Recurrent VT ICD discharge Pacemaker interrogated --Normal TSH -- Amiodarone level pending Increased amiodarone to 200 mg twice a day Wean off of amiodarone drip as able Continue metoprolol succinate 12.5 mg daily Monitor and replete electrolytes as needed Appreciate cardiology input Needs follow-up with EP Dr. Bray as outpatient Acute on chronic HFrEF H/O ischemic cardiomyopathy --CXR:Stable prominent cardiomegaly with increased pulmonary vascular congestion. --Last EF 30% Received IV Lasix Monitor volume status, renal function, electrolytes, I's and O's, daily weight Continue metoprolol, Jardiance No HAYDEN/ARB due to CKD stage IV Appreciate cardiology input Plan to transition to torsemide as able CAD s/p CABG Continue Plavix, metoprolol, Jardiance Permanent Afib Continue metoprolol succinate, amiodarone On Eliquis for anticoagulation CKD III-IV Cr 2.9 today Avoid nephrotoxic agents as able HTN Continue current medications Monitor blood pressure DM II Last HbA1c 6.5 Continue Jardiance Also insulin sliding scale Monitor blood glucose levels Hypothyroidism Continue levothyroxine H/O prostate Cancer BPH Continue Flomax, Casodex Anemia of chronic disease H/O Cirrhosis Hb at baseline Monitor DVT Px: Eliquis Code Status Full Code Admission and Anticipated Discharge Date Admission Date: April 13, 2025 Subjective Patient is seen and examined at bedside Reports having dyspnea on exertion and leg edema Denies any chest pain, palpitations, dizziness, nausea, vomiting, abdominal pain Offers no other complaints Review of Systems Review of Systems: All systems reviewed & are unremarkable except as noted in Subjective Physical Exam Physical Exam: Physical Exam: Vitals signs as noted above General Appearance:Moderately built and nourished, no apparent distress, Elderly Head: normocephalic, Atraumatic Eyes: normal inspection, EOMI Neck: supple, Trachea midline Respiratory/Chest: Normal breath sounds, +basal crackles, No accessory muscle use Cardiovascular: S1, S2, +murmur Abdomen/GI:Soft, Non tender, Bowel sounds present Extremities/Musculoskeletal:normal inspection, + LE edema Neurologic/Psych:AAOX3, grossly no focal neurological deficits Skin: normal color, warm Results & Data Results & Data Vital Signs (Past 12 Hours) Vital Signs Temp Pulse Pulse Resp BP Pulse Ox O2 Del Method 04/14/25 11:06 72 04/14/25 08:00 36.6 C 73 18 99/63 L 96 Room Air 04/14/25 03:14 36.7 C 74 20 94/62 L 95 Room Air 04/14/25 00:49 98/62 L Laboratory Results Short CBC 04/13/25 04/14/25 Range/Units 12:00 05:34 WBC 5.74 5.49 (4.8-10.8) K/ul Hgb 9.4 L 8.1 L (14.0-18.0) g/dl Hct 30.3 L 24.8 L (42.0-52.0) % Plt Count 171 153 (130-400) K/uL [facility] 04/13/25 04/14/25 12:00 05:34 Sodium 139 138 Potassium 4.2 3.8 Chloride 102 102 Carbon Dioxide 27 27 BUN 38 H 40 H Creatinine 2.68 H 2.90 H Glucose 153 H 148 H Calcium 8.9 8.5 L Liver Function 04/13/25 Range/Units 12:00 Total Bilirubin 1.4 H (0.2-1.0) mg/dl AST 13 (13-39) U/L ALT 10 (7-52) U/L Alkaline Phosphatase 99 (34-104) U/L Albumin 3.5 (3.4-5.0) gm/dl
--- NOTE | 2025-04-14 11:56 | Electrocardiogram Report ---
Test Reason : Blood Pressure : */* mmHG Vent. Rate : 77 BPM Atrial Rate : 101 BPM P-R Int : * ms QRS Dur : 228 ms QT Int : 536 ms P-R-T Axes : * -77 99 degrees QTcB Int : 606 ms Ventricular-paced rhythm Abnormal ECG When compared with ECG of 14-Mar-2025 13:17, Vent. rate has decreased by 9 bpm Confirmed by Daniel Carlson ([id number]) on 04/14/2025 11:55:59 AM Referred By: NO PCP Confirmed By: Daniel Carlson
[2025-04-14] MEDS: POTASSIUM CHLORIDE CRTAB 20 MEQ TABCR PO ONE (12:13)
[2025-04-14] MEDS: FUROSEMIDE 40 MG/4 ML VIAL IV ONE (12:13)
--- NOTE | 2025-04-14 13:15 | Cardiology Progress Note ---
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 Multiple recent admissions for Acute HFrEF and VT reviewed. Amiodarone was to be increased to 200 mg BID in February 2025, however per review of pill packet med list (created on 04/04), patient has only been taking amiodarone 200 mg daily. Patient was also to be transitioned from furosemide to torsemide 50 mg due to recurrent HF symptoms, but this was never changed as well. Per device interrogation, patient received successful ICD shock at 21:10 on 04/12 at 35 J. He has persistent underlying atrial fibrillation with controlled rates. He was unaware of his device therapy until the office called him and advised to go to the ER. He does admit to worsening SOB over the last few days/weeks with low energy and fatigue. Recurrent VT -Reload amiodarone - Amio gtt ordered on admission. -Increase amiodarone to 200 mg BID. -Potassium and magnesium normal on admisison -Continue metoprolol succinate 25 mg 1/2 tab daily. Dose has been limited in the past by hypotension -LFT's accpetable -bilirubin just mildly elevated. TSH normal -amiodarone level ordered but will likely not result until discharge -will need to discuss with EP regarding plans for possible BIV upgrade and/or VT ablation. Acute HFrEF -Patient presenting with SOB/cough -treated with IV lasix yesterday. -Unfortunately no outputs recorded. Patient reports frequent urination -Still with dyspnea and rales on exam this morning -repeat Furosemide 40 mg IV x1 dose now with potassium 20 meq -Monitor renal function. elevated creatinine 2.6 yesterday and 2.9 today but remains within his baseline -Keep potassium 4-5 -Monitor I+O's -Daily weight with standing scale. -pending response, consider transitioning to torsemide tomorrow Chronic/persistent atrial fib/flutter dating back to January 2025 -rates controlled on metoprolol -continue low dose Eliquis 2.5 mg BID Ischemic cardiomyopathy -LVEF 25-30% -continue GDMT as tolerated. Meds limited by hypotension -continue Plavix, metoprolol, Jardiance, diuretic -? not on statin= will need to review outpatient chart for reasoning and discuss with patient Case discussed with Dr. Rosas I spent a total of 40 minutes on the date of service in preparation, delivery, and documentation of the care provided to this patient, excluding any time spent in the performance of separately billed services. Isi Diego PA-C Department of Cardiology, [facility] This chart was completed in part utilizing Speech Voice Recognition Software. Grammatical errors, random word insertions, pronoun errors, and incomplete sentences are an occasional consequence of this system due to software limitations, ambient noise, and hardware issues. Any formal questions or concerns about the content, text, or information contained within the body of this dictation should be directly addressed to the provider for clarification. Admission and Anticipated Discharge Date Admission Date: April 13, 2025 Supervising Physician Co-Signing Physician Notes I have personally performed a history and physical examination on the patient. I have reviewed the advance practitioner's documentation, and I agree with, and take responsibility for the plan of care. 84-year-old male admitted with recurrent ventricular tachycardia and ICD discharge. History of cardiomyopathy, moderate MR, moderate aortic stenosis. No recurrent dysrhythmia since admission. Feeling fatigued today. Recommendations: * Continue IV amiodarone for 24 hours. * Increase oral amiodarone to 200 mg twice daily at discharge. * Continue guideline-directed medical therapy. * Outpatient EP evaluation to consider BiV upgrade and/or VT ablation. Kwesi Rosas DO, [facility] I spent a total of 35 minutes on the date of service in preparation, delivery, and documentation of the care provided to this patient, excluding any time spent in the performance of separately billed services. Subjective Patient resting in chair comfortably this morning. Notes frequent urination with IV diuresis since admission. Still has ongoing cough and dyspnea. No chest pain. Still with pretibial edema but improving. No dizziness. No palpitations. No arrhythmias on telemetry. Review of Systems Review of Systems: All systems reviewed & are unremarkable except as noted in HPI & below Physical Exam Constitutional: WD/WN, vitals as above Neck: trachea midline, no thyromegaly Respiratory: + cough; no labored breathing Auscult ation: + crackles (bases b/l) Cardiovascular: Rate/Rhythm: regular rhythm Heart Sounds: + murmur (II/ systolic murmur) Vessels: + JVD Extremities: + edema (+ pretibial edema b/l) Gastrointestinal (Abdomen): normal bowel sounds, soft, nontender, no hepatosplenomegaly Musculoskeletal: no cyanosis or clubbing, extremities motor strength 5/5 Neurologic: PERRL, EOMI, accommodation nl, no face palsy, no dysarthria Results & Data Vital Signs (Past 12 Hours) Vital Signs Temp Pulse Pulse Resp BP Pulse Ox O2 Del Method 04/14/25 11:30 36.7 C 70 16 101/60 95 Room Air 04/14/25 11:06 72 04/14/25 08:00 36.6 C 73 18 99/63 L 96 Room Air 04/14/25 03:14 36.7 C 74 20 94/62 L 95 Room Air Laboratory Results Cardiac Enzymes 04/13/25 Range/Units 13:49 Troponin I High Sens 19.1 (0-20) pg/ml Coagulation 04/13/25 Range/Units 12:00 PT 12.2 H (9.0-12.0) Seconds APTT 36 H (21-31) Seconds CBC 04/14/25 Range/Units 05:34 WBC 5.49 (4.8-10.8) K/ul RBC 2.74 L (4.70-6.10) M/uL Hgb 8.1 L (14.0-18.0) g/dl Hct 24.8 L (42.0-52.0) % Plt Count 153 (130-400) K/uL Neut # (Auto) 4.00 (1.40-6.50) K/uL Lymph # (Auto) 0.69 L (1.20-3.40) K/uL Mcleod # (Auto) 0.42 (0.11-0.59) K/uL Eos # (Auto) 0.31 (0.00-0.50) K/uL Baso # (Auto) 0.05 (0.00-0.20) K/uL Comprehensive Metabolic Panel 04/14/25 Range/Units 05:34 Sodium 138 (136-145) mmol/L Potassium 3.8 (3.5-5.1) mmol/L Chloride 102 (98-107) mmol/L Carbon Dioxide 27 (21-32) mmol/L BUN 40 H (6-23) mg/dl Creatinine 2.90 H (0.6-1.4) mg/dl Glucose 148 H (70-99(Fasting)) mg/dl Calcium 8.5 L (8.6-10.3) mg/dl Intake and Output 04/13/25 04/14/25 04/14/25 22:59 06:59 14:59 Intake Total 450.000 / 800.000 350 / 800.000 198.73 / 198.73 Balance 450.000 / 800.000 350 / 800.000 198.73 / 198.73 Intake: IV 350.000 / 350.000 198.73 / 198.73 Albumin 25% 12.5 gm In 50 ml @ 50 / 50 50 mls/hr IV ONE ONE Rx#: [id number] Amiodarone / D5w 150 mg In 100 100 / 100 ml @ 600 mls/hr IV NOW STA Rx#: [id number] Amiodarone / D5w 360 mg In 200 200.000 / 200.000 198.73 / 198.73 ml @ 0.5 MG/MIN 16.667 mls/hr IV .Q12H [facility] Rx#:[id number] Oral 100 / 450 350 / 450 Other: Weight 84 kg 82 kg Weight Measurement Method Standing Scale Built in [facility] Diagnostic Findings telemetry reviewed: underlying afib with ventricular pacing in the 's. No recurrent vt or afib RVR Medications Administered Current Inpatient Medications Acetaminophen (Acetaminophen 325 Mg Tab) 650 mg PO Q4H PRN PRN Reason: Pain or Fever Stop: 05/13/25 17:48 Last Admin: 04/14/25 05:50 Dose: 650 mg Amiodarone HCl (Amiodarone 200 Mg Tab) 200 mg PO BIDM [facility] Stop: 05/13/25 16:59 Last Admin: 04/14/25 08:33 Dose: 200 mg Apixaban (Apixaban 2.5 Mg Tab) 2.5 mg PO BID [facility] Stop: 05/13/25 20:59 Last Admin: 04/14/25 09:47 Dose: 2.5 mg Bicalutamide (Bicalutamide 50 Mg Tab) 50 mg PO QAM [facility] Stop: 05/14/25 08:59 Last Admin: 04/14/25 08:25 Dose: 50 mg Clopidogrel Bisulfate (Clopidogrel Bisulfate 75 Mg Tab) 75 mg PO QAM [facility] Stop: 05/14/25 08:59 Last Admin: 04/14/25 08:25 Dose: 75 mg Dextrose (Dextrose 50% 50 Ml Syringe) 25 - 50 ml IV UD PRN; Protocol PRN Reason: Hypoglycemia Protocol Stop: 05/13/25 17:48 Empagliflozin (Empagliflozin 10 Mg Tab) 10 mg PO QAM [facility] Stop: 05/14/25 08:59 Last Admin: 04/14/25 08:33 Dose: 10 mg Glucagon (Glucagon For Inj 1 Mg Vial) 1 mg SQ UD PRN; Protocol PRN Reason: Hypoglycemia Protocol Stop: 05/13/25 17:48 Glucose (Glucose 40% Gel 15 Gm Tube) 15 - 30 gm PO UD PRN; Protocol PRN Reason: Hypoglycemia Protocol Stop: 05/13/25 17:48 Glucose (Glucose 10 Tab/Tube) 4 - 8 tab PO UD PRN; Protocol PRN Reason: Hypoglycemia Protocol Stop: 05/13/25 17:48 Amiodarone HCl/Dextrose (Nexterone / D5w) 360 mg in 200 mls @ 16.667 mls/hr IV .Q12H [facility] Stop: 05/13/25 22:29 Last Admin: 04/14/25 10:34 Dose: 0.5 mg/min, 16.7 mls/hr Insulin Aspart (Insulin Aspart Per Unit Charge) 0 units SC ACHS [facility] Stop: 05/13/25 17:48 Last Admin: 04/14/25 12:13 Dose: 6 units Levothyroxine Sodium (Levothyroxine Sodium 112 Mcg Tablet) 112 mcg PO DAILYBB [facility] Stop: 05/14/25 06:29 Last Admin: 04/14/25 05:50 Dose: 112 mcg Metoprolol Succinate (Metoprolol Succ 25mg Ext Rel Tab) 12.5 mg PO QAM [facility] Stop: 05/14/25 08:59 Last Admin: 04/14/25 08:33 Dose: 12.5 mg Mirtazapine (Mirtazapine Tab 15 Mg Tab) 15 mg PO HS [facility] Stop: 05/13/25 20:59 Last Admin: 04/13/25 21:53 Dose: Not Given Miscellaneous (Carbohydrates For Hypoglycemia ) 15 - 30 gm PO UD PRN PRN Reason: Hypoglycemia Protocol Stop: 05/13/25 17:48 Ondansetron HCl (Ondansetron Inj 2 Mg/Ml 2 Ml Vial) 4 mg IV Q6H PRN PRN Reason: Nausea Stop: 05/13/25 17:48 Tamsulosin HCl (Tamsulosin Hcl 0.4 Mg Cap) 0.4 mg PO DAILY [facility] Stop: 05/14/25 08:59 Last Admin: 04/14/25 08:25 Dose: 0.4 mg PG Care Time/CCT Total # of Minutes Spent Total Time Spent with Patient: Total time spent is greater than 50% in coordination of care (as documented) at patient's floor/unit and/or counseling patient: Coding Level of Care Code 42591 SUB INP/OBS CARE 3/50MIN Diagnoses Recurrent ventricular tachycardia I47.20 ICD (implantable cardioverter-defibrillator) discharge Z45.02 Acute on chronic heart 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
[2025-04-15 06:46] LABS: Anion Gap 9.0 (3-11); Calcium 8.8 mg/dl (8.6-10.3); Carbon Dioxide 27.0 mmol/L (21-32); Chloride 102.0 mmol/L (98-107); Magnesium 2.3 mg/dl (1.7-2.4); Potassium 3.9 mmol/L (3.5-5.1); Sodium 138.0 mmol/L (136-145)
[2025-04-15 06:52] LABS: Blood Urea Nitrogen 42.0 mg/dl (6-23); Creatinine Clr Calc Pharmacy 21.1 ml/min; Glucose 149.0 mg/dl (70-99(Fasting))
--- NOTE | 2025-04-15 12:29 | Hospitalist Progress Note ---
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 Recurrent VT ICD discharge Pacemaker interrogated --Normal TSH -- Amiodarone level pending Increased amiodarone to 200 mg twice a day Continue metoprolol succinate 12.5 mg daily Monitor and replete electrolytes as needed Appreciate cardiology input Needs follow-up with EP Dr. Bray as outpatient Discontinued amiodarone drip Acute on chronic HFrEF H/O ischemic cardiomyopathy --CXR:Stable prominent cardiomegaly with increased pulmonary vascular congestion. --Last EF 30% Received IV Lasix Monitor volume status, renal function, electrolytes, I's and O's, daily weight Continue metoprolol, Jardiance No HAYDEN/ARB due to CKD stage IV Appreciate cardiology input Plan to transition to torsemide as able Chest x-ray pending CAD s/p CABG Continue Plavix, metoprolol, Jardiance Permanent Afib Continue metoprolol succinate, amiodarone On Eliquis for anticoagulation CKD III-IV Cr 2.9 today Avoid nephrotoxic agents as able HTN Continue current medications Monitor blood pressure BP stable DM II Last HbA1c 6.5 Continue Jardiance Also insulin sliding scale Monitor blood glucose levels Hypothyroidism Continue levothyroxine H/O prostate Cancer BPH Continue Flomax, Casodex Anemia of chronic disease H/O Cirrhosis Hb at baseline Monitor DVT Px: Eliquis Code Status Full Code Disposition Expected discharge in next 24 to 48 hours Admission and Anticipated Discharge Date Admission Date: April 13, 2025 Subjective Patient is seen and examined at bedside States that he was short of breath after ambulating in the hallways this morning No other new complaints Denies any chest pain, palpitations, dizziness, nausea, vomiting, abdominal pain Review of Systems Review of Systems: All systems reviewed & are unremarkable except as noted in Subjective Physical Exam Physical Exam: Physical Exam: Vitals signs as noted above General Appearance:Moderately built and nourished, no apparent distress, Elderly Head: normocephalic, Atraumatic Eyes: normal inspection, EOMI Neck: supple, Trachea midline Respiratory/Chest: Normal breath sounds, + minimal basal crackles, No accessory muscle use Cardiovascular: S1, S2, +murmur Abdomen/GI:Soft, Non tender, Bowel sounds present Extremities/Musculoskeletal:normal inspection, + LE edema Neurologic/Psych:AAOX3, grossly no focal neurological deficits Skin: normal color, warm Results & Data Results & Data Vital Signs (Past 12 Hours) Vital Signs Temp Pulse Pulse Resp BP Pulse Ox O2 Del Method 04/15/25 11:00 36.7 C 77 109/62 95 Room Air 04/15/25 10:47 90 04/15/25 08:11 36.8 C 87 96/61 L 96 Room Air 04/15/25 07:58 74 99/69 L 04/15/25 03:20 36.7 C 72 20 91/54 L 92 Room Air Laboratory Results [facility] 04/15/25 05:33 Sodium 138 Potassium 3.9 Chloride 102 Carbon Dioxide 27 BUN 42 H Creatinine 2.82 H Glucose 149 H Calcium 8.8
--- NOTE | 2025-04-15 14:59 | XRay Report ---
Chest radiograph, one view History: CHF Comparison: 04/13/2025 Findings: Single AP view of the chest performed. Mild perihilar opacity, increased from prior. No focal consolidation or pleural effusion. No pneumothorax. The cardiomediastinal silhouette is enlarged. Left chest wall dual-lead AICD. Indistinct and prominent pulmonary vascularity. No evidence for lymphadenopathy. No visualized bony or soft tissue abnormality. Impression: Increased pulmonary edema Electronically signed by Andrade Lazcano 04-15-2025 2:59 PM
--- NOTE | 2025-04-15 15:33 | Cardiology Progress Note ---
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 Multiple recent admissions for Acute HFrEF and VT reviewed. Amiodarone was to be increased to 200 mg BID in February 2025, however per review of pill packet med list (created on 04/04), patient has only been taking amiodarone 200 mg daily. Patient was also to be transitioned from furosemide to torsemide 50 mg due to recurrent HF symptoms, but this was never changed as well. Per device interrogation, patient received successful ICD shock at 21:10 on 04/12 at 35 J. He has persistent underlying atrial fibrillation with controlled rates. He was unaware of his device therapy until the office called him and advised to go to the ER. He does admit to worsening SOB over the last few days/weeks with low energy and fatigue. Recurrent VT -Amiodarone reloaded. He has been on amio gtt for 24-48 hours. Stop gtt and continue amiodarone 200 mg BID -Continue metoprolol succinate 25 mg 1/2 tab daily. Dose has been limited in the past by hypotension -LFT's acceptable -bilirubin just mildly elevated. TSH normal -amiodarone level ordered but will likely not result until discharge -will need to discuss with EP regarding plans for possible BIV upgrade and/or VT ablation. Acute HFrEF -Patient presenting with SOB/cough -treated with several doses of IV lasix 40 mg since admission -dose limited due to CKD -ongoing cough and dyspnea reported today -repeat chest xray with increased pulm vascular congestion -repeat IV lasix 40 mgm daily with potassium 20 meq now -Unfortunately no outputs recorded. Patient reports frequent urination -Monitor renal function. Elevated creatinine at 2.8 -Keep potassium 4-5. Supplement -Monitor I+O's -Daily weight with standing scale. -pending response, consider transitioning to torsemide tomorrow Chronic/persistent atrial fib/flutter dating back to January 2025 -rates controlled on metoprolol -continue low dose Eliquis 2.5 mg BID Ischemic cardiomyopathy -LVEF 25-30% -continue GDMT as tolerated. Meds limited by hypotension -continue Plavix, metoprolol, Jardiance, diuretic -? not on statin= will need to review outpatient chart for reasoning and discuss with patient Case discussed with Dr. Rosas I spent a total of 40 minutes on the date of service in preparation, delivery, and documentation of the care provided to this patient, excluding any time spent in the performance of separately billed services. Isi Diego PA-C Department of Cardiology, [facility] This chart was completed in part utilizing Speech Voice Recognition Software. Grammatical errors, random word insertions, pronoun errors, and incomplete sentences are an occasional consequence of this system due to software limitations, ambient noise, and hardware issues. Any formal questions or concerns about the content, text, or information contained within the body of this dictation should be directly addressed to the provider for clarification. Admission and Anticipated Discharge Date Admission Date: April 13, 2025 Supervising Physician Co-Signing Physician Notes I have personally performed a history and physical examination on the patient. I have reviewed the advance practitioner's documentation, and I agree with, and take responsibility for the plan of care. 84-year-old male admitted with recurrent ventricular tachycardia and ICD discharge. History of cardiomyopathy, moderate MR, moderate aortic stenosis. No recurrent dysrhythmia since admission. Reports fatigue, shortness of breath, and edema. Mild crackles on exam. Recommendations: * Discontinue IV amiodarone * Continue oral amiodarone to 200 mg twice. * 40 mg IV furosemide today with potassium supplementation. * Consider transition to torsemide next 24 to 48 hours. * Repeat basic metabolic panel in a.m.. * Continue guideline-directed medical therapy. * Outpatient EP evaluation to consider BiV upgrade and/or VT ablation. Kwesi Rosas DO, [facility] I spent a total of 35 minutes on the date of service in preparation, delivery, and documentation of the care provided to this patient, excluding any time spent in the performance of separately billed services. Subjective Patient was ambulating in hallways this morning. Reported ongoing/significant dyspnea. Ongoing edema noted. Still diuresing. No chest pain. No dizziness. Significant cough also reported. Chest xray ordered for this morning. Review of Systems Review of Systems: All systems reviewed & are unremarkable except as noted in HPI & below Physical Exam Constitutional: WD/WN, vitals as above Neck: trachea midline, no thyromegaly Respiratory: + cough; no labored breathing Auscult ation: + crackles (bases b/l) Cardiovascular: Rate/Rhythm: regular rhythm Heart Sounds: + murmur (II/ systolic murmur) Vessels: + JVD Extremities: + edema (+ pretibial edema b/l) Gastrointestinal (Abdomen): normal bowel sounds, soft, nontender, no hepatosplenomegaly Musculoskeletal: no cyanosis or clubbing, extremities motor strength 5/5 Neurologic: PERRL, EOMI, accommodation nl, no face palsy, no dysarthria Results & Data Vital Signs (Past 12 Hours) Vital Signs Temp Pulse Pulse BP Pulse Ox O2 Del Method 04/15/25 15:18 70 04/15/25 11:00 36.7 C 77 109/62 95 Room Air 04/15/25 10:47 90 04/15/25 08:11 36.8 C 87 96/61 L 96 Room Air 04/15/25 07:58 74 99/69 L Laboratory Results Comprehensive Metabolic Panel 04/15/25 Range/Units 05:33 Sodium 138 (136-145) mmol/L Potassium 3.9 (3.5-5.1) mmol/L Chloride 102 (98-107) mmol/L Carbon Dioxide 27 (21-32) mmol/L BUN 42 H (6-23) mg/dl Creatinine 2.82 H (0.6-1.4) mg/dl Glucose 149 H (70-99(Fasting)) mg/dl Calcium 8.8 (8.6-10.3) mg/dl Intake and Output 04/15/25 04/15/25 04/15/25 06:59 14:59 22:59 Intake Total 300 / 1148.730 200 / 200 Balance 300 / 1148.730 200 / 200 Intake: IV 200 / 200 Amiodarone / D5w 360 mg In 200 200 / 200 ml @ 0.5 MG/MIN 16.667 mls/hr IV .Q12H [facility] Rx#:[id number] Oral 300 / 750 Other: # Unmeasured Voids 2 Weight 82.3 kg Weight Measurement Method Built in [facility] Diagnostic Findings Telemetry reviewed: ventricular paced rhythm in the 70-80's. no recurrent VT chest xray reviewed from this morning, after evaluation: Increased pulm edema/pulm vascular congestion Medications Administered Current Inpatient Medications Acetaminophen (Acetaminophen 325 Mg Tab) 650 mg PO Q4H PRN PRN Reason: Pain or Fever Stop: 05/13/25 17:48 Last Admin: 04/14/25 05:50 Dose: 650 mg Amiodarone HCl (Amiodarone 200 Mg Tab) 200 mg PO BIDM [facility] Stop: 05/13/25 16:59 Last Admin: 04/15/25 07:59 Dose: 200 mg Apixaban (Apixaban 2.5 Mg Tab) 2.5 mg PO BID [facility] Stop: 05/13/25 20:59 Last Admin: 04/15/25 07:58 Dose: 2.5 mg Bicalutamide ([facility]amide 50 Mg Tab) [facility] Stop: 05/14/25 08:59 Last Admin: 04/15/25 07:58 Dose: 50 mg Clopidogrel Bisulfate (Clopidogrel Bisulfate 75 Mg Tab) [facility] Stop: 05/14/25 08:59 Last Admin: 04/15/25 08:00 Dose: 75 mg Dextrose (Dextrose 50% 50 Ml Syringe) 25 - 50 ml IV UD PRN; Protocol PRN Reason: Hypoglycemia Protocol Stop: 05/13/25 17:48 Empagliflozin (Empagliflozin 10 Mg Tab) [facility] Stop: 05/14/25 08:59 Last Admin: 04/15/25 08:00 Dose: 10 mg Glucagon (Glucagon For Inj 1 Mg Vial) 1 mg SQ UD PRN; Protocol PRN Reason: Hypoglycemia Protocol Stop: 05/13/25 17:48 Glucose (Glucose 40% Gel 15 Gm Tube) 15 - 30 gm PO UD PRN; Protocol PRN Reason: Hypoglycemia Protocol Stop: 05/13/25 17:48 Glucose (Glucose 10 Tab/Tube) 4 - 8 tab PO UD PRN; Protocol PRN Reason: Hypoglycemia Protocol Stop: 05/13/25 17:48 Insulin Aspart (Insulin Aspart Per Unit Charge) [facility] Stop: 05/13/25 17:48 Last Admin: 04/15/25 11:59 Dose: 5 units Levothyroxine Sodium (Levothyroxine Sodium 112 Mcg Tablet) 112 mcg PO DAILYBB [facility] Stop: 05/14/25 06:29 Last Admin: 04/15/25 06:37 Dose: 112 mcg Metoprolol Succinate (Metoprolol Succ 25mg Ext Rel Tab) 12.5 mg PO QAM [facility] Stop: 05/14/25 08:59 Last Admin: 04/15/25 07:59 Dose: 12.5 mg Mirtazapine (Mirtazapine Tab 15 Mg Tab) 15 mg PO HS [facility] Stop: 05/13/25 20:59 Last Admin: 04/14/25 20:46 Dose: Not Given Miscellaneous (Carbohydrates For Hypoglycemia ) 15 - 30 gm PO UD PRN PRN Reason: Hypoglycemia Protocol Stop: 05/13/25 17:48 Ondansetron HCl (Ondansetron Inj 2 Mg/Ml 2 Ml Vial) 4 mg IV Q6H PRN PRN Reason: Nausea Stop: 05/13/25 17:48 Tamsulosin HCl (Tamsulosin Hcl 0.4 Mg Cap) 0.4 mg PO DAILY [facility] Stop: 05/14/25 08:59 Last Admin: 04/15/25 07:59 Dose: 0.4 mg PG Care Time/CCT Total # of Minutes Spent Total Time Spent with Patient: Total time spent is greater than 50% in coordination of care (as documented) at patient's floor/unit and/or counseling patient: 40 minutes Coding Level of Care Code 04882 SUB INP/OBS CARE 3/50MIN Diagnoses Recurrent ventricular tachycardia I47.20 ICD (implantable cardioverter-defibrillator) discharge Z45.02 Acute on chronic heart 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
[2025-04-15] MEDS: POTASSIUM CHLORIDE CRTAB 20 MEQ TABCR PO ONE (15:34)
[2025-04-15] MEDS: FUROSEMIDE 40 MG/4 ML VIAL IV ONE (15:36)
[2025-04-16 06:24] LABS: Hematocrit (blood only) 24.0 % (42.0-52.0); Hemoglobin 7.9 g/dl (14.0-18.0); Mean Corpuscular Hemoglobin 29.2 pg (25.0-34.0); Mean Corpuscular Volume 88.6 fL (80.0-100.0); Platelet Count 170 K/uL (130-400); RDW Standard Deviation 62.0 fL (36.4-46.3); Red Blood Count 2.71 M/uL (4.70-6.10); White Blood Count 4.79 K/ul (4.8-10.8)
[2025-04-16 06:43] LABS: Anion Gap 8.0 (3-11); Blood Urea Nitrogen 40.0 mg/dl (6-23); Calcium 8.7 mg/dl (8.6-10.3); Carbon Dioxide 28.0 mmol/L (21-32); Chloride 102.0 mmol/L (98-107); Creatinine Clr Calc Pharmacy 21.1 ml/min; Glucose 101.0 mg/dl (70-99(Fasting)); Magnesium 2.3 mg/dl (1.7-2.4); Potassium 3.6 mmol/L (3.5-5.1); Sodium 138.0 mmol/L (136-145)
--- NOTE | 2025-04-16 09:26 | Cardiology Progress Note ---
Date of Service April 16, 2025 Assessment & Plan (1) Recurrent ventricular tachycardia: (2) ICD (implantable cardioverter-defibrillator) discharge: (3) Acute on chronic heart failure with reduced ejection fraction and diastolic dysfunction: Plan Patient is a complex 84 year old male seen in the [place] ER after having a recurrent successful AICD discharge (04/12) for recurrent VT. Multiple recent admissions for Acute HFrEF and VT reviewed. Amiodarone was to be increased to 200 mg BID in February 2025, however per review of pill packet med list (created on 04/04), patient has only been taking amiodarone 200 mg daily. Patient was also to be transitioned from furosemide to torsemide 50 mg due to recurrent HF symptoms, but this was never changed as well. Per device interrogation, patient received successful ICD shock at 21:10 on 04/12 at 35 J. He has persistent underlying atrial fibrillation with controlled rates. He was unaware of his device therapy until the office called him and advised to go to the ER. He does admit to worsening SOB over the last few days/weeks with low energy and fatigue. Recurrent VT -Amiodarone reloaded. He has been on amio gtt for 24-48 hours. Stop gtt and continue amiodarone 200 mg BID -Continue metoprolol succinate 25 mg 1/2 tab daily. Dose has been limited in the past by hypotension -LFT's acceptable -bilirubin just mildly elevated. TSH normal -amiodarone level ordered but will likely not result until discharge -will need to discuss with EP regarding plans for possible BIV upgrade and/or VT ablation. Acute HFrEF -Patient presenting with SOB/cough -treated with several doses of IV lasix 40 mg since admission -dose limited due to CKD -ongoing cough and dyspnea reported today -repeat chest xray with increased pulm vascular congestion -repeat IV lasix 40 mgm daily with potassium 20 meq now -Unfortunately no outputs recorded. Patient reports frequent urination -Monitor renal function. Elevated creatinine at 2.8 -Keep potassium 4-5. Supplement -Monitor I+O's -Daily weight with standing scale. -pending response, consider transitioning to torsemide tomorrow Chronic/persistent atrial fib/flutter dating back to January 2025 -rates controlled on metoprolol -continue low dose Eliquis 2.5 mg BID Ischemic cardiomyopathy -LVEF 25-30% -continue GDMT as tolerated. Meds limited by hypotension -continue Plavix, metoprolol, Jardiance, diuretic -? not on statin= will need to review outpatient chart for reasoning and discuss with patient 04/16/2025: -Patient is resting comfortably Out of bed in a chair. Reports ongoing shortness of breath with minimal exertion, likely multifactorial. -Chest xray yesterday suggestive of volume overload. Recommend one time dose of furosemide 40mg IV today and reassess volume status in the AM -Creatine remains stable, continue with close monitoring of renal function, serum electrolytes, daily weights. Strict I&O -goal serum K > 4.0 and Serum Mag > 2.0 Continue Amiodarone 200mg PO BID, Metoprolol succinate 12.5mg PO Daily -Repeat chest xray in AM -If clinical improvement tomorrow consideration transition to PO Torsemide. Patient will need to see EP upon discharge to discuss if patient should have possible BIV upgrade and/or VT ablation. Case has been discussed with Dr. Freeman. Further recommendations regarding plan of care as per his assessment. I spent a total of 30 minutes on the date of service in preparation, delivery, documentation of the care provided to the patient excluding any time spent in the performance of separately billed services. BLAKE Gomez [facility] Cardiology [facility] Admission and Anticipated Discharge Date Admission Date: April 13, 2025 Supervising Physician Co-Signing Physician Notes Patient seen and examined. Past medical history, surgical history, social history and family history have been reviewed. The medical record and all the above studies have been reviewed. Case DW KING including management. HFrEF Recurrent VT Severe ICM CAD S/P CABG correct and f/u electrolytes f/u renal function continue Eliquis change IV to PO diuretics GDMT for HFrEF limited due to renal insufficiency and low BP avoid hypovolemia keep patient euvolemic keep LE elevated when sitting 1.5 L / 24 hr fluid restriction strict I&Os salt restriction counseling EP evaluation as OP -> possible BIV upgrade and/or VT ablation. Subjective 04/16/2025: Patient seen and examined in follow up today. Feeling fair. Reports shortness of breath with minimal exertion. No chest pain, pressure or palptiations. Labs, vitals, diagnostics, telemetry and documentation reviewed. Telemetry reviewed showing Paced with occasional PVC rate 60-70's Review of Systems Review of Systems: All systems reviewed & are unremarkable except as noted in HPI & below Physical Exam Constitutional: well developed and well nourished; not ill appearing Neck: normal visual inspection and trachea midline Respiratory: normal respiratory effort and + cough; no respiratory distress Auscultation: + diminished lung sounds (bilateral bases ); no crackles, no rales, no rhonchi and no wheezes Cardiovascular: Rate/Rhythm: regular rate and regular rhythm Heart Sounds: normal S1 and normal S2 Vessels: dorsalis pedis pulses present; no JVD Skin: no rashes, warm and dry Psychiatric: A+Ox3, euthymic affect Results & Data Vital Signs (Past 12 Hours) Vital Signs Temp Pulse Resp BP Pulse Ox O2 Del Method 04/16/25 08:57 70 104/64 04/16/25 07:44 36.7 C 70 18 92/56 L 92 Room Air 04/16/25 03:02 36.3 C L 69 18 94/62 L 97 Room Air 04/15/25 22:34 36.6 C 73 18 96/61 L 95 Room Air Laboratory Results CBC 04/16/25 Range/Units 05:55 WBC 4.79 L (4.8-10.8) K/ul RBC 2.71 L (4.70-6.10) M/uL Hgb 7.9 L (14.0-18.0) g/dl Hct 24.0 L (42.0-52.0) % Plt Count 170 (130-400) K/uL Comprehensive Metabolic Panel 04/16/25 Range/Units 05:55 Sodium 138 (136-145) mmol/L Potassium 3.6 (3.5-5.1) mmol/L Chloride 102 (98-107) mmol/L Carbon Dioxide 28 (21-32) mmol/L BUN 40 H (6-23) mg/dl Creatinine 2.83 H (0.6-1.4) mg/dl Glucose 101 H (70-99(Fasting)) mg/dl Calcium 8.7 (8.6-10.3) mg/dl Intake and Output 04/15/25 04/16/25 04/16/25 22:59 06:59 14:59 Intake Total 550 / 1220 50 / 1220 Output Total 655 / 655 250 / 250 Balance -105 / 565 50 / 565 -250 / -250 Intake: Oral 550 / 1020 50 / 1020 Output: Urine 655 / 655 250 / 250 Other: # Unmeasured Voids 1 Weight 82.5 kg PG Care Time/CCT Total # of Minutes Spent Total Time Spent with Patient: Total time spent is greater than 50% in coordination of care (as documented) at patient's floor/unit and/or counseling patient: Coding [place] [address] SUB INP/OBS CARE 3/50MIN Patient Type Established Diagnoses Recurrent ventricular tachycardia I47.20 ICD (implantable cardioverter-defibrillator) discharge Z45.02 Acute on chronic heart 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
[2025-04-16] MEDS: POTASSIUM CHLORIDE 10 MEQ TABCR PO ONE (10:33)
[2025-04-16] MEDS: FUROSEMIDE 40 MG/4 ML VIAL IV ONE (12:47)
--- NOTE | 2025-04-16 14:52 | Hospitalist Progress Note ---
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 Recurrent VT ICD discharge Pacemaker interrogated --Normal TSH -- Amiodarone level pending Amiodarone drip discontinued Increased amiodarone to 200 mg twice a day Continue metoprolol succinate 12.5 mg daily Monitor and replete electrolytes as needed Appreciate cardiology input Needs follow-up with EP Dr. Bray as outpatient Acute on chronic HFrEF H/O ischemic cardiomyopathy --CXR:Stable prominent cardiomegaly with increased pulmonary vascular congestion. 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 today Avoid nephrotoxic agents as able HTN Continue current medications Monitor blood pressure BP stable DM II Last HbA1c 6.5 Continue Jardiance Also insulin sliding scale Monitor blood glucose levels Hypothyroidism Continue levothyroxine H/O prostate Cancer BPH Continue Flomax, Casodex Anemia of chronic disease H/O Cirrhosis Hb at baseline Monitor DVT Px: Eliquis Code Status Full Code Disposition Expected discharge in next 24 to 48 hours Admission and Anticipated Discharge Date Admission Date: April 13, 2025 Subjective Patient is seen and examined at bedside Reports dyspnea on minimal exertion today Also states having dry cough Denies any chest pain, palpitations, dizziness, nausea, vomiting, abdominal pain Review of Systems Review of Systems: All systems reviewed & are unremarkable except as noted in Subjective Physical Exam Physical Exam: Physical Exam: Vitals signs as noted above General Appearance:Moderately built and nourished, no apparent distress, Elderly Head: normocephalic, Atraumatic Eyes: normal inspection, EOMI Neck: supple, Trachea midline Respiratory/Chest: Normal breath sounds, + minimal basal crackles, No accessory muscle use Cardiovascular: S1, S2, +murmur Abdomen/GI:Soft, Non tender, Bowel sounds present Extremities/Musculoskeletal:normal inspection, + LE edema Neurologic/Psych:AAOX3, grossly no focal neurological deficits Skin: normal color, warm Results & Data Results & Data Vital Signs (Past 12 Hours) Vital Signs Temp Pulse Pulse Resp BP Pulse Ox O2 Del Method 04/16/25 12:21 36.5 C 77 22 99/63 L 97 Room Air 04/16/25 08:57 70 104/64 04/16/25 08:00 70 04/16/25 07:44 36.7 C 70 18 92/56 L 92 Room Air 04/16/25 03:02 36.3 C L 69 18 94/62 L 97 Room Air Laboratory Results Short CBC 04/16/25 Range/Units 05:55 WBC 4.79 L (4.8-10.8) K/ul Hgb 7.9 L (14.0-18.0) g/dl Hct 24.0 L (42.0-52.0) % Plt Count 170 (130-400) K/uL BMP 04/16/25 05:55 Sodium 138 Potassium 3.6 Chloride 102 Carbon Dioxide 28 BUN 40 H Creatinine 2.83 H Glucose 101 H Calcium 8.7
[2025-04-17 07:37] LABS: Anion Gap 10.0 (3-11); Blood Urea Nitrogen 45.0 mg/dl (6-23); Calcium 8.8 mg/dl (8.6-10.3); Carbon Dioxide 27.0 mmol/L (21-32); Chloride 102.0 mmol/L (98-107); Creatinine Clr Calc Pharmacy 20.9 ml/min; Glucose 126.0 mg/dl (70-99(Fasting)); Magnesium 2.4 mg/dl (1.7-2.4); Potassium 3.4 mmol/L (3.5-5.1); Sodium 139.0 mmol/L (136-145)
--- NOTE | 2025-04-17 08:38 | XRay Report ---
XR chest 2V PA/lateral CLINICAL HISTORY: Congestive heart failure. COMPARISON STUDY: Chest CT March 10, 2025. Chest radiograph April 15, 2025. FINDINGS: Bilateral shoulder arthroplasties, median sternotomy wires and left subclavian pacer/AICD a re again noted. Cardiomegaly is unchanged. There is no pneumothorax. Suspected small bilateral pleura l effusions are unchanged. Interstitial thickening is unchanged. IMPRESSION: No significant change in interstitial pulmonary edema with small bilateral pleural effus ions. ACT 112: Negative or not required by law. Electronically signed by: Shiva Chow M.D. 04/17/2025 8:37 AM
[2025-04-17] MEDS: POTASSIUM CHLORIDE 10 MEQ TABCR PO ONE (10:12)
[2025-04-17 10:41] VITALS: O2SAT 95
[2025-04-17 16:13] VITALS: RESP 16; TEMP 98.1
--- NOTE | 2025-04-17 16:30 | Hospitalist Progress Note ---
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 Recurrent VT ICD discharge Pacemaker interrogated --Normal TSH -- Amiodarone level pending Amiodarone drip discontinued Increased amiodarone to 200 mg twice a day Continue metoprolol succinate 12.5 mg daily Monitor and replete electrolytes as needed Appreciate cardiology input Needs follow-up with EP Dr. Bray as outpatient Plan to discharge home once cleared by cardiology Acute on chronic HFrEF H/O ischemic cardiomyopathy --CXR:Stable prominent cardiomegaly with increased pulmonary vascular congestion. --Last EF 30% Monitor volume status, renal function, electrolytes, I's and O's, daily weight Continue metoprolol, Jardiance No HAYDEN/ARB due to CKD stage IV Appreciate cardiology input Received IV Lasix Chest x-ray today showed no significant change in pulmonary edema with small bilateral pleural effusions Diuretics to be determined by cardiology. CAD s/p CABG Continue Plavix, metoprolol, Jardiance Permanent Afib Continue metoprolol succinate, amiodarone On Eliquis for anticoagulation Hypokalemia Monitor and replete electrolytes as needed CKD III-IV Cr 2.8 today Avoid nephrotoxic agents as able HTN Continue current medications Monitor blood pressure BP stable DM II Last HbA1c 6.5 Continue Jardiance Also insulin sliding scale Monitor blood glucose levels Hypothyroidism Continue levothyroxine H/O prostate Cancer BPH Continue Flomax, Casodex Anemia of chronic disease H/O Cirrhosis Hb at baseline Monitor DVT Px: Eliquis Code Status Full Code Disposition Home with home health as able Admission and Anticipated Discharge Date Admission Date: April 13, 2025 Subjective Patient is seen and examined at bedside Subjectively feels about the same as yesterday. Less cough today Still has some dyspnea on exertion Prefers to be discharged home today Denies any chest pain, palpitations, dizziness, nausea, vomiting, abdominal pain Review of Systems Review of Systems: All systems reviewed & are unremarkable except as noted in Subjective Physical Exam Physical Exam: Physical Exam: Vitals signs as noted above General Appearance:Moderately built and nourished, no apparent distress, Elderly Head: normocephalic, Atraumatic Eyes: normal inspection, EOMI Neck: supple, Trachea midline Respiratory/Chest: Normal breath sounds, + minimal left basilar crackles, No accessory muscle use Cardiovascular: S1, S2, +murmur Abdomen/GI:Soft, Non tender, Bowel sounds present Extremities/Musculoskeletal:normal inspection, + LE edema Neurologic/Psych:AAOX3, grossly no focal neurological deficits Skin: normal color, warm Results & Data Results & Data Vital Signs (Past 12 Hours) Vital Signs Temp Pulse Pulse Resp BP Pulse Ox O2 Del Method 04/17/25 16:12 36.7 C 72 16 98/61 L 95 Room Air 04/17/25 10:40 36.5 C 71 18 92/57 L 95 Room Air 04/17/25 08:36 70 108/63 04/17/25 08:00 70 04/17/25 08:00 Room Air 04/17/25 07:09 36.5 C 70 18 98/62 L 91 Room Air
--- NOTE | 2025-04-17 17:02 | Cardiology Progress Note ---
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 Multiple recent admissions for Acute HFrEF and VT reviewed. Amiodarone was to be increased to 200 mg BID in February 2025, however per review of pill packet med list (created on 04/04), patient has only been taking amiodarone 200 mg daily. Patient was also to be transitioned from furosemide to torsemide 50 mg due to recurrent HF symptoms, but this was never changed as well. Per device interrogation, patient received successful ICD shock at 21:10 on 04/12 at 35 J. He has persistent underlying atrial fibrillation with controlled rates. He was unaware of his device therapy until the office called him and advised to go to the ER. HFrEF - improved Recurrent VT Severe ICM CAD S/P CABG AFib with RVR CKD CXR - improved pulm congestion correct and f/u electrolytes Continue Amiodarone 200mg PO BID, Metoprolol succinate 12.5mg PO Daily continue Eliquis PO diuretics GDMT for HFrEF limited due to renal insufficiency and low BP avoid hypovolemia keep patient euvolemic keep LE elevated when sitting 1.5 L / 24 hr fluid restriction strict I&Os salt restriction counseling EP evaluation as OP -> possible BIV upgrade and/or VT ablation. Stable from cardiac standpoint for discharge f/u in cardiology clinic as OP Admission and Anticipated Discharge Date Admission Date: April 13, 2025 Subjective Patient on exam is sitting in chair in NAD; no c/o cp, sob, palpitations, dizziness, LOC Less cough today improved breathing wants to go home Review of Systems Review of Systems: 14 point ROS negative unless otherwise s tated in HPI Physical Exam Constitutional: WD/WN, vitals as above well developed and well nourished; not ill appearing Neck: trachea midline, no thyromegaly normal visual inspection and trachea midline Respiratory: normal respiratory effort and + cough; no respiratory distress and no labored breathing Auscultation: + diminished lung sounds (bilateral bases ); no crackles, no rales, no rhonchi and no wheezes Cardiovascular: Rate/Rhythm: regular rate and regular rhythm Heart Sounds: normal S1, normal S2 and + murmur (II/ systolic murmur) Vessels: dorsalis pedis pulses present; no JVD Extremities: + edema (decreased) Gastrointestinal (Abdomen): normal bowel sounds, soft, nontender, no hepatosplenomegaly Musculoskeletal: no cyanosis or clubbing, extremities motor strength 5/5 Skin: no rashes, warm and dry Neurologic: PERRL, EOMI, accommodation nl, no face palsy, no dysarthria Psychiatric: A+Ox3, euthymic affect Results & Data Vital Signs (Past 12 Hours) Vital Signs Temp Pulse Pulse Resp BP Pulse Ox O2 Del Method 04/17/25 16:12 36.7 C 72 16 98/61 L 95 Room Air 04/17/25 10:40 36.5 C 71 18 92/57 L 95 Room Air 04/17/25 08:36 70 108/63 04/17/25 08:00 70 04/17/25 08:00 Room Air 04/17/25 07:09 36.5 C 70 18 98/62 L 91 Room Air Laboratory Results Comprehensive Metabolic Panel 04/17/25 Range/Units 06:34 Sodium 139 (136-145) mmol/L Potassium 3.4 L (3.5-5.1) mmol/L Chloride 102 (98-107) mmol/L Carbon Dioxide 27 (21-32) mmol/L BUN 45 H (6-23) mg/dl Creatinine 2.85 H (0.6-1.4) mg/dl Glucose 126 H (70-99(Fasting)) mg/dl Calcium 8.8 (8.6-10.3) mg/dl Intake and Output 04/17/25 04/17/25 04/17/25 06:59 14:59 22:59 Intake Total 150 / 840 600 / 600 Output Total 250 / 250 Balance 150 / -35 350 / 350 Intake: Oral 150 / 640 600 / 600 Output: Urine 250 / 250 Other: Weight 82.3 kg PG Care Time/CCT Total # of Minutes Spent Total Time Spent with Patient: Total time spent is greater than 50% in coordination of care (as documented) at patient's floor/unit and/or counseling patient: Coding Level of Care Code 84667 SUB INP/OBS CARE 3/50MIN Diagnoses Recurrent ventricular tachycardia I47.20 ICD (implantable cardioverter-defibrillator) discharge Z45.02 Acute on chronic heart 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
--- NOTE | 2025-04-17 17:11 | Discharge Summary ---
Date of Service April 17, 2025 Admission HPI Per Admitting Provider Mr. Garcia is a pleasant 84M with PMH HFrEF 30%, CAD s/p CABG, permanent afib on eliquis, recurrent VT s/p ICD, NIDDM, CKD3, BHUPINDER not on CPAP, prostate CA, cirrhosis , HTN who presents with AICD shock last evening. He was asymptomatic during the shock. He was then directed to come to the ED by his cardiology team. Patient was admitted in february 2025 for recurrent VT. At that time, his amio was increased to BID but patient was still only taking it daily. Today, his device was interrogated which showed VT and successful ICD shock last evening. Patient states he has been more SOB over the past few months. He also endorses worsening b/l LE edema. He was to be transitioned from lasix to torsemide but patient never started taking the torsemide for unclear reasons during interview. Currently, he denies f/c cp palp dyspnea cough wheez abd pain nvd Vitals stable in ED Labs essentially at baseline Admission Exam Per Admitting Provider Vitals and labs reviewed General: Chronically ill appearing. elderly. NAD HEENT: EOMI, PERRLA Neck: Supple Cardiac: RRR no rubs gallops Lungs: CTA no rhonchi wheezing or rales Abd: S NT ND BS positive : Defferred MSK: Full ROM. No obvious deformities Ext: 1+ b/l LE pitting Edema cyanosis Skin: Warm, Dry Neuro: AOx3 No focal deficits. Psych: Normal Mood Principal Diagnosis Recurrent ventricular tachycardia ICD discharge Acute on chronic heart failure with reduced EF Discharge Data Allergies Allergy/AdvReac Type Severity Reaction Status Date / Time cefazolin Allergy Intermediate Rash Verified 03/09/25 19:39 ceftriaxone Allergy Intermediate Rash Verified 03/09/25 19:39 lisinopril AdvReac Mild COUGHING Verified 03/09/25 19:39 Consultations 04/13/25 13:31 Consult Cardiology Routine 04/13/25 15:27 ED Decision to Admit Stat Procedures Performed Laboratory Results WBC 4.79 K/ul (4.8-10.8) L 04/16/25 05:55 RBC 2.71 M/uL (4.70-6.10) L 04/16/25 05:55 Hgb 7.9 g/dl (14.0-18.0) L 04/16/25 05:55 Hct 24.0 % (42.0-52.0) L 04/16/25 05:55 MCV 88.6 fL (80.0-100.0) 04/16/25 05:55 MCH 29.2 pg (25.0-34.0) 04/16/25 05:55 MCHC 32.9 g/dL (32.0-36.0) 04/16/25 05:55 RDW Std Deviation 62.0 fL (36.4-46.3) H 04/16/25 05:55 RDW Coeff of Perez 19.1 % (11.5-14.5) H 04/16/25 05:55 Plt Count 170 K/uL (130-400) 04/16/25 05:55 MPV 9.5 fL (9.4-12.4) 04/16/25 05:55 Immature Gran % (Auto) 0.4 % 04/14/25 05:34 Neut % (Auto) 72.8 % 04/14/25 05:34 Lymph % (Auto) 12.6 % 04/14/25 05:34 Person % (Auto) 7.7 % 04/14/25 05:34 Eos % (Auto) 5.6 % 04/14/25 05:34 Baso % (Auto) 0.9 % 04/14/25 05:34 Neut # (Auto) 4.00 K/uL (1.40-6.50) 04/14/25 05:34 Lymph # (Auto) 0.69 K/uL (1.20-3.40) L 04/14/25 05:34 Person # (Auto) 0.42 K/uL (0.11-0.59) 04/14/25 05:34 Eos # (Auto) 0.31 K/uL (0.00-0.50) 04/14/25 05:34 Baso # (Auto) 0.05 K/uL (0.00-0.20) 04/14/25 05:34 Immature Gran # (Auto) 0.02 K/uL (0.01-0.20) 04/14/25 05:34 PT 12.2 Seconds (9.0-12.0) H 04/13/25 12:00 INR 1.1 (0.9-1.1) 04/13/25 12:00 APTT 36 Seconds (21-31) H 04/13/25 12:00 PTT Ratio 1.3 04/13/25 12:00 Sodium 139 mmol/L (136-145) 04/17/25 06:34 Potassium 3.4 mmol/L (3.5-5.1) L 04/17/25 06:34 Chloride 102 mmol/L (98-107) 04/17/25 06:34 Carbon Dioxide 27 mmol/L (21-32) 04/17/25 06:34 Anion Gap 10 (3-11) 04/17/25 06:34 BUN 45 mg/dl (6-23) H 04/17/25 06:34 Creatinine 2.85 mg/dl (0.6-1.4) H 04/17/25 06:34 Est Cr Clr Drug Dosing 20.9 ml/min 04/17/25 06:34 eGFR 21.38 04/17/25 06:34 BUN/Creatinine Ratio 15.8 (10-20) 04/17/25 06:34 Glucose 126 mg/dl (70-99(Fasting)) H 04/17/25 06:34 POC Glucose 110 mg/dl (70-99) H 04/17/25 16:49 Lactate 1.9 mmol/L (0.4-2.0) 04/13/25 21:12 Calcium 8.8 mg/dl (8.6-10.3) 04/17/25 06:34 Magnesium 2.4 mg/dl (1.7-2.4) 04/17/25 06:34 Total Bilirubin 1.4 mg/dl (0.2-1.0) H 04/13/25 12:00 AST 13 U/L (13-39) 04/13/25 12:00 ALT 10 U/L (7-52) 04/13/25 12:00 Alkaline Phosphatase 99 U/L (34-104) 04/13/25 12:00 Troponin I High Sens 19.1 pg/ml (0-20) 04/13/25 13:49 Total Protein 6.9 gm/dl (6.0-8.3) 04/13/25 12:00 Albumin 3.5 gm/dl (3.4-5.0) 04/13/25 12:00 Globulin 3.4 gm/dl (2.5-4.0) 04/13/25 12:00 Albumin/Globulin Ratio 1.0 (0.9-2) 04/13/25 12:00 TSH 2.279 uIu/ml (0.300-4.500) 04/13/25 13:49 Impressions Chest X-Ray 04/17/25 07:00 XR chest 2V PA/lateral CLINICAL HISTORY: Congestive heart failure. COMPARISON STUDY: Chest CT March 10, 2025. Chest radiograph April 15, 2025. FINDINGS: Bilateral shoulder arthroplasties, median sternotomy wires and left subclavian pacer/AICD are again noted. Cardiomegaly is unchanged. There is no pneumothorax. Suspected small bilateral pleural effusions are unchanged. Interstitial thickening is unchanged. IMPRESSION: No significant change in interstitial pulmonary edema with small bilateral pleural effusions. ACT 112: Negative or not required by law. Electronically signed by: Shiva Chow M.D. 04/17/2025 8:37 AM Hospital Course (1) Acute on chronic heart failure with reduced ejection fraction and diastolic dysfunction: (2) Recurrent ventricular tachycardia: Plan Patient is an 84M with PMH HFrEF 30%, CAD s/p CABG, permanent afib on eliquis, recurrent VT s/p ICD, NIDDM, CKD3, BHUPINDER not on CPAP, prostate CA, cirrhosis , HTN who presents with AICD shock last evening. Recurrent VT ICD discharge Pacemaker interrogated --Normal TSH -- Amiodarone level pending Amiodarone drip discontinued Increased amiodarone to 200 mg twice a day Continue metoprolol succinate 12.5 mg daily Monitor and replete electrolytes as needed Appreciate cardiology input Needs follow-up with EP Dr. Bray as outpatient Plan to discharge home with home health today Acute on chronic HFrEF H/O ischemic cardiomyopathy --CXR:Stable prominent cardiomegaly with increased pulmonary vascular congestion. --Last EF 30% Monitor volume status, renal function, electrolytes, I's and O's, daily weight Continue metoprolol, Jardiance No HAYDEN/ARB due to CKD stage IV Appreciate cardiology input Received IV Lasix Transition to oral diuretics on discharge CAD s/p CABG Continue Plavix, metoprolol, Jardiance Permanent Afib Continue metoprolol succinate, amiodarone On Eliquis for anticoagulation Hypokalemia Monitor and replete electrolytes as needed CKD III-IV Cr 2.8 today Avoid nephrotoxic agents as able HTN Continue current medications Monitor blood pressure BP stable DM II Last HbA1c 6.5 Continue Jardiance Also insulin sliding scale Monitor blood glucose levels Hypothyroidism Continue levothyroxine H/O prostate Cancer BPH Continue Flomax, Casodex Anemia of chronic disease H/O Cirrhosis Hb at baseline Monitor DVT Px: Eliquis Code Status Full Code Disposition Home with home health Total Time Total Time Spent Total Time Spent (In Minutes): 54 minutes Discharge Plan Discharge Items Patient Disposition: Home - Home Health Services Reason For Visit: VT Discharge Diagnosis: Recurrent ventricular tachycardia ICD discharge Acute on chronic heart failure with reduced EF Condition on Discharge: Fair Activity: Per Instructions section Exercise/Sports: Gradually increase as tolerated Non-emergency contact: Primary Care Provider and Police Captain Senior Call non-emergency contact if: you have any medication questions, your symptoms worsen, your pain is concerning for you and you have a fever Follow-up/Referrals: Luiz Pina [Physician Fourth Officer] - (Date & Time 05/22/2025 9:00 AM Provider: Luiz Pina PA-C Cardiology [facility] ) Sandra Judge MD [Primary Care Provider] - (Date & Time 04/19/2025 9:00 AM Provider: Israel Abbott MD Family Medicine [facility] ) Diet: Carb Consistent or DM2 and Heart Healthy Add Attending Provider Instructions: -- Follow-up with your primary care physician Dr. Judge in 1 week --Follow-up with your gamma ray operator as recommended -- Your blood test (Amiodarone Level) is pending at the time of discharge. Follow-up with your primary care physician/gamma ray operator for further recommendations as outpatient Medication changes: -- Your amiodarone is increased to 200 mg twice a day as recommended by your gamma ray operator. Seek immediate medical attention if your symptoms reoccur or worsen Please review medication list provided on discharge for any medication changes as instructed. Please call if you have any questions or problems. You can reach a [facility] hospitalist on duty at [facility] 24 hours a day by calling [phone] Addtl Economic Consultant Provider Instructions: Call your Primary Care doctor if any of the following symptoms or problems start or get worse: * Shortness of breath or difficulty breathing * Wake up at night short of breath * Chest pain * Cough * Swelling of your hands, feet, or legs * More fatigued or tired with your normal activity * Palpitations - sudden fast heart beats WEIGHT * Weigh yourself every morning after using the bathroom. * Use the same scale. * Wear the same amount of clothing. * Write your weight down on a chart. * Call your Primary Care doctor if you gain more than 2-3 pounds in 1-2 days. MEDICATIONS * Use this discharge instruction sheet for medication instructions. * Take your medications at the time your doctor ordered. * Do not skip a dose of your medicines. * If you miss a dose of medicine, take it as soon as possible, but DO NOT DOUBLE A DOSE. * Read your medicine information when you get home. * Know all of the side effects of your medicine. If in doubt, ask your pharmacist * Call your Primary Care doctor's office if you have any side effects. * Be sure all of your doctors know what medicine and herbs you take (including cold, flu, and herbal medicine). Take the following with you to your follow-up doctor appointments: * Weight Chart * Medication List * List of questions Do not drink excessive alcohol, beer or wine. Pending Studies at Discharge: Yes Studies:: Amiodarone level Stand-Alone Forms: My [facility], Smoking Cessation Medications and DC Order Prescriptions: Continued bicalutamide [Casodex] 50 mg Tablet 50 mg PO QAM ferrous sulfate [iron] 325 mg (65 mg iron) Tablet 325 mg PO QAM cholecalciferol (vitamin D3) [Vitamin D3] 25 mcg (1,000 unit) Capsule 50 mcg PO DAILY levothyroxine 112 mcg tablet 112 mcg PO DAILYBB metoprolol succinate 25 mg Tablet Extended Release 24 Hr 12.5 mg PO QAM Qty: 30 0RF furosemide 40 mg Tablet 40 mg PO BID Rx Instructions: Morning and Noon mirtazapine 15 mg tablet 15 mg PO HS omega [id number] oil [Fish Oil] 1,000 (120-180) mg Capsule 1 cap PO DAILY Jardiance 10 mg Tablet 10 mg PO QAM clopidogrel [Plavix] 75 mg tablet 75 mg PO QAM potassium chloride 20 mEq Tablet,Er Particles/Crystals 20 meq PO BID Qty: 60 0RF tamsulosin 0.4 mg capsule 0.4 mg PO DAILY Qty: 30 3RF apixaban 2.5 mg Tablet 2.5 mg PO BID Qty: 60 0RF Changed amiodarone 200 mg tablet 200 mg PO BID Qty: 60 1RF Discharge Orders: Discharge Order (Routine); Ordered 04/17/25 Ordered By: Colt García Admission Data Admit Date/Time: 04/13/25 16:24 Attending Provider: Colt García Admit Provider: Srini De La Cruz Primary Care Provider: Sandra Judge Other Providers: Conrad Do; Srini De La Cruz
[2025-04-17] MEDS: FUROSEMIDE INJ 20 MG/2 ML VIAL IV ONE (17:32)
[2025-04-17 17:33] VITALS: BP 106/76; PULSE 79
== END 2025-04-17 18:25 | disposition home health service (06) | DRG 291 ==
LOC: ED 11:38 → 2S 16:24 → SUATTDRO 16:24 → 2S 17:11